=== PATIENT | female | born 1940 | race Caucasian/White ===

== ENCOUNTER 2017-10-09 13:56 | Emergency (ER) | payer MEDICARE, SELFPAY ==
[2017-10-09 13:57] VITALS: BP 153/88; PULSE 59; RESP 18; TEMP 36.6; O2SAT 96; BMI 23.3
--- NOTE | 2017-10-09 14:02 | RAD_ITS ---
STUDY: X-RAY - LEFT WRIST REASON FOR EXAM: Female, 77 years old. Pain following a fall. History of old fracture of the distal radius. TECHNIQUE: 3 view(s) of the wrist were obtained. COMPARISON: None. FINDINGS: Normal visualized distal radius and ulna. Normal radiocarpal articulation. Normal distal radioulnar articulation. Normal carpal bones. Normal carpal articulations. Normal carpometacarpal articulation of the thumb. Normal second through fifth carpometacarpal articulations. Normal visualized metacarpal bones. Calcification of the triangular fibrocartilage. RAD/Wrist min 3 Views IMPRESSION: No acute abnormality is seen. Electronically Signed: Steve Ramos MD at 14:28 EST Tel [phone], Service support ,
--- NOTE | 2017-10-09 14:51 | ED.VISSUMM ---
- ER Visit Summary Date of Service: 10/09/17 Chief Complaint: Pain and swelling left wrist status post fall this past Monday History of Present Illness: The patient is a 77 F is right-handed. She presents with injury to her left wrist. She fell outstretched extremity while walking the dog on Monday. She reports pain with movement and palpation. She has no history of prior injury. He denies paresthesia, anesthesia or motor weakness. Physical Examination: Vital signs remarkable elevated blood pressure 153/88. Median, radial and ulnar function intact. There is no subungual hematomas noted of the digits. Extensor and flexor is intact. Capillary refill is normal in all digits. There is pain palpation over the distal radius with soft tissue swelling noted. There is no pain the patient over the anatomic snuffbox or axial loading of the thumb. Test Results: View x-ray of the wrist was obtained which reveals arthritic changes with no obvious fracture. Furthermore, there is no volar fat pad noted. There is no widening of the scapholunate space either. Emergency Department Course and Treatment: X-ray was obtained per nurse protocol Treatment Plan: Elevation and ice. Disposition: Discharged home Impression: Contusion left wrist with hematoma status post fall initial encounter This note was generated with [employer] dictation software. It may contain incorrect words, spelling, and punctuation that were not noted in review of the chart prior to signing ED Disposition - Plan for ED Patient: Disposition: Home or Assisted Living Chief Complaint: Upper Extremity Injury Instructions: ED Contusion Upper Ext Referrals: Denton,Nafisa, DO [Primary Care Provider] - 3-5 Days if not improving Additional Instructions: Elevate wrist and ice 20-30 minutes at a time 6 day times a day.
--- NOTE | 2017-10-09 14:56 | ED.VISSUMM ---
- ER Visit Summary Date of Service: 10/09/17 Chief Complaint: [] History of Present Illness: The patient is a 77 F [] Physical Examination: [] Test Results: [] Emergency Department Course and Treatment: [] Treatment Plan: [] Disposition: [] Impression: [] This note was generated with [employer] dictation software. It may contain incorrect words, spelling, and punctuation that were not noted in review of the chart prior to signing ED Disposition - Plan for ED Patient: Disposition: Home or Assisted Living Chief Complaint: Upper Extremity Injury Instructions: ED Contusion Upper Ext Prescriptions: Hydrocodone Bitart/Apap 5-325 [[place] 5MG-325MG] 1 tablet PO Q6H PRN PRN 3 Days #10 tablet PRN Reason: Pain Referrals: Fast,Nafisa, DO [Primary Care Provider] - 3-5 Days if not improving Additional Instructions: Elevate wrist and ice 20-30 minutes at a time 6 day times a day.
--- NOTE | 2017-10-09 15:00 | ED.DCSUM_ITS ---
- ER Visit Summary Date of Service: 10/09/17 Chief Complaint: [] History of Present Illness: The patient is a 77 F [] Physical Examination: [] Test Results: [] Emergency Department Course and Treatment: [] Treatment Plan: [] Disposition: [] Impression: [] This note was generated with [employer] dictation software. It may contain incorrect words, spelling, and punctuation that were not noted in review of the chart prior to signing ED Disposition - Plan for ED Patient: Disposition: Home or Assisted Living Chief Complaint: Upper Extremity Injury Instructions: ED Contusion Upper Ext Prescriptions: Hydrocodone Bitart/Apap 5-325 [[place] 5MG-325MG] 1 tablet PO Q6H PRN PRN 3 Days # 10 tablet PRN Reason: Pain Referrals: Fast,Nafisa, DO [Primary Care Provider] - 3-5 Days if not improving Additional Instructions: Elevate wrist and ice 20-30 minutes at a time 6 day times a day.
--- NOTE | 2017-10-09 17:45 | ED.DCSUM_ITS ---
- ER Visit Summary Date of Service: 10/09/17 Addendum: The patient went to [facility] to get her prescription for [place] which had been sent electronically. They told her that they did not have a record of this. The patient had a paper prescription given so that she could get this filled. This note was generated with [employer] dictation software. It may contain incorrect words, spelling, and punctuation that were not noted in review of the chart prior to signing ED Disposition - Plan for ED Patient: Disposition: Home or Assisted Living Chief Complaint: Upper Extremity Injury Prescriptions: Hydrocodone Bitart/Apap 5-325 [[place] 5/325] 1 - 2 tab PO Q4H PRN PRN 3 Days #10 tab PRN Reason: Pain Hydrocodone Bitart/Apap 5-325 [[place] 5MG-325MG] 1 tablet PO Q6H PRN PRN 3 Days # 10 tablet PRN Reason: Pain Referrals: Fast,Nafisa, DO [Primary Care Provider] - 3-5 Days if not improving Additional Instructions: Elevate wrist and ice 20-30 minutes at a time 6 day times a day.
== END 2017-10-09 15:12 | disposition home or self-care (01) ==
PROVIDERS: Emergency Provider Emergency Medicine; Family Provider Internal Medicine; PCP Internal Medicine
DX: S60.212A Contusion of left wrist, initial encounter (principal); M19.032 Primary osteoarthritis, left wrist; I48.91 Unspecified atrial fibrillation; Z72.0 Tobacco use; Z86.73 Personal history of transient ischemic attack (TIA), and cerebral infarction without residual deficits; W19.XXXA Unspecified fall, initial encounter; Y93.K1 Activity, walking an animal; Y92.89 Other specified places as the place of occurrence of the external cause; Y99.8 Other external cause status
CPT/HCPCS: 73110; 99282

== ENCOUNTER 2017-10-10 13:23 | Emergency (ER) | payer MEDICARE, SELFPAY ==
[2017-10-09 13:57] VITALS: BP 153/88; BMI 23.3
[2017-10-10 13:24] VITALS: BP 163/75; PULSE 60; RESP 17; TEMP 36.9; O2SAT 95; BMI 23.8
--- NOTE | 2017-10-10 14:14 | ED.VISSUMM ---
- ER Visit Summary Date of Service: 10/10/17 Chief Complaint: left wrist pain is worse and must have missed something yesterday History of Present Illness: The patient is a 77 F who was seen by me yesterday. She had x-rays of the wrist that were interpreted by me as negative. Prior to seeing patient the x-rays were read examined and the radiologist interpretation is negative as well. She complains of increased pain. She states she has been elevating her wrist and applying ice. She states the [place] she was prescribed is not helping at all. She denies any paresthesia, anesthesia or motor weakness. She is concerned because the swelling has gotten worse. Physical Examination: Has significant swelling dorsal surface of the left breast and distal one third of the left forearm on the dorsal surface. Axillary, median, radial and ulnar function intact. There is no pain the patient of the lateral medial epicondyle. No pain the patient with olecranon process. There is no pain the patient with a radial head. Minimal movement of her fingers or hand causes her exquisite pain. Test Results: None Emergency Department Course and Treatment: As informed I did look at the x-rays again and looked at the interventional radiologist. He agreed with my initial interpretation. Of note patient has an Abhi wrap on and the Abhi wrap was applied tightly. She was informed the reason that her swelling has gotten worse is the fact that she is on Xarelto and she is more likely to bleed. She was instructed to keep her wrist elevated. She was told elevation means her wrist above her nose and applying ice 6-8 times a day. She insists that she has been compliant. Of note her fingers are all swollen and they were not swollen yesterday. Treatment Plan: Keep wrist elevated, ice and follow-up with PCP if no improvement in 3-5 days Disposition: Discharged to home Impression: Left wrist pain status post fall with expanding subcu hematoma secondary to Xarelto This note was generated with [employer] dictation software. It may contain incorrect words, spelling, and punctuation that were not noted in review of the chart prior to signing ED Disposition - Plan for ED Patient: Disposition: Home or Assisted Living Chief Complaint: Upper Extremity Injury Instructions: ED Hematoma, ED Contusion Upper Ext Referrals: Fast,Nafisa, DO [Primary Care Provider] - 3-5 Days if not improving
--- NOTE | 2017-10-10 14:19 | ED.DCSUM_ITS ---
- ER Visit Summary Date of Service: 10/10/17 Chief Complaint: left wrist pain is worse and must have missed something yesterday History of Present Illness: The patient is a 77 F who was seen by me yesterday. She had x-rays of the wrist that were interpreted by me as negative. Prior to seeing patient the x-rays were read examined and the radiologist interpretation is negative as well. She complains of increased pain. She states she has been elevating her wrist and applying ice. She states the [place] she was prescribed is not helping at all. She denies any paresthesia, anesthesia or motor weakness. She is concerned because the swelling has gotten worse. Physical Examination: Has significant swelling dorsal surface of the left breast and distal one third of the left forearm on the dorsal surface. Axillary , median, radial and ulnar function intact. There is no pain the patient of the lateral medial epicondyle. No pain the patient with olecranon process. There is no pain the patient with a radial head. Minimal movement of her fingers or hand causes her exquisite pain. Test Results: None Emergency Department Course and Treatment: As informed I did look at the x-rays again and looked at the interventional radiologist. He agreed with my initial interpretation. Of note patient has an Abhi wrap on and the Abhi wrap was applied tightly. She was informed the reason that her swelling has gotten worse is the fact that she is on Xarelto and she is more likely to bleed. She was instructed to keep her wrist elevated. She was told elevation means her wrist above her nose and applying ice 6-8 times a day. She insists that she has been compliant. Of note her fingers are all swollen and they were not swollen yesterday. Treatment Plan: Keep wrist elevated, ice and follow-up with PCP if no improvement in 3-5 days Disposition: Discharged to home Impression: Left wrist pain status post fall with expanding subcu hematoma secondary to Xarelto This note was generated with [employer] dictation software. It may contain incorrect words, spelling, and punctuation that were not noted in review of the chart prior to signing ED Disposition - Plan for ED Patient: Disposition: Home or Assisted Living Chief Complaint: Upper Extremity Injury Instructions: ED Hematoma, ED Contusion Upper Ext Referrals: Fast,Nafisa, DO [Primary Care Provider] - 3-5 Days if not improving
[2017-10-10 14:36] VITALS: RESP 16
--- NOTE | 2017-10-10 14:37 | ED.RN ---
REVIEWED D/C INSTRUCTIONS, FOLLOW UP CARE, AND S/S THAT WOULD WARRANT A RETURN TO THE ED WITH PT. PT VERBALIZED AN UNDERSTANDING AND DENIES FURTHER QUESTIONS FOR THIS RN. PT SKIN P/W/D, RESP EVEN AND UNLABORED, PT A&O X 3, NO DISTRESS NOTED. PT AMBULATED OUT OF ED, GAIT STEADY.
== END 2017-10-10 14:38 | disposition home or self-care (01) ==
LOC: ED 14:22
PROVIDERS: Emergency Provider Emergency Medicine; Family Provider Internal Medicine; PCP Internal Medicine
DX: M25.532 Pain in left wrist (principal); S60.212D Contusion of left wrist, subsequent encounter; Z79.02 Long term (current) use of antithrombotics/antiplatelets; I25.10 Atherosclerotic heart disease of native coronary artery without angina pectoris; E11.9 Type 2 diabetes mellitus without complications; I10 Essential (primary) hypertension; E78.00 Pure hypercholesterolemia, unspecified; I48.91 Unspecified atrial fibrillation; I27.20 Pulmonary hypertension, unspecified; Z72.0 Tobacco use; Z79.84 Long term (current) use of oral hypoglycemic drugs; Z79.891 Long term (current) use of opiate analgesic; Z79.899 Other long term (current) drug therapy; W19.XXXD Unspecified fall, subsequent encounter
CPT/HCPCS: 99282

== ENCOUNTER 2017-10-14 12:36 | Emergency (ER) | payer MEDICARE, SELFPAY ==
[2017-10-14 12:36] VITALS: BP 148/86; PULSE 68; RESP 14; TEMP 36.9; BMI 24.3
--- NOTE | 2017-10-14 12:45 | RAD_ITS ---
STUDY: X-RAY - LEFT RADIUS AND ULNA REASON FOR EXAM: Female, 77 years old. Trauma TECHNIQUE: 2 view(s) of the forearm. COMPARISON: None. FINDINGS: There is no evidence of fracture or dislocation. There are no significant degenerative changes. There are no radiodense foreign bodies. RAD/Forearm 2 Views IMPRESSION: No fracture or dislocation. Electronically Signed: Félix Wills, at 14:24 EST Tel , Service support ,
--- NOTE | 2017-10-14 13:40 | ED.DCSUM_ITS ---
- ER Visit Summary Date of Service: 10/14/17 Chief Complaint: The left forearm status post fall History of Present Illness: The patient is a 77 F who is right-hand dominant and was seen last week ?2 for injury to left wrist. X-rays at that time were negative. She now presents because of left forearm pain. Pain is localized to the mid third of the radius. She denies any shoulder pain. She denies elbow pain. She reports pain with movement mid forearm. She denies any paresthesia, anesthesia or motor weakness. Physical Examination: Woman who appears uncomfortable. Vital signs remarkable blood pressure 148/86. There is pain palpation of the mid third of the left radius. There is no pain the patient over the olecranon process, lateral medial epicondyle or radial head. There is soft tissue swelling with discoloration and pain to palpation over the dorsal surface of the distal radius and ulna. There is no pain on the volar surface. Median, radial, and ulnar nerve function are intact. Radial pulses palpable. Test Results: View x-ray of the left forearm was obtained and there is no evidence of fracture. Emergency Department Course and Treatment: Ice elevation Tylenol for discomfort and x-ray to evaluate for fracture Treatment Plan: Ice elevation ice for discomfort Disposition: Discharge to home Impression: Contusion left forearm status post fall initial encounter This note was generated with [employer] dictation software. It may contain incorrect words, spelling, and punctuation that were not noted in review of the chart prior to signing ED Disposition - Plan for ED Patient: Disposition: Home or Assisted Living Chief Complaint: Upper Extremity Injury Instructions: ED Contusion Upper Ext Referrals: Nafisa Chawla DO [Primary Care Provider] - 1 Week if not improving
[2017-10-14 13:51] VITALS: RESP 12
== END 2017-10-14 13:51 | disposition home or self-care (01) ==
PROVIDERS: Emergency Provider Emergency Medicine; Family Provider Internal Medicine; PCP Internal Medicine
DX: S50.12XD Contusion of left forearm, subsequent encounter (principal); S80.212D Abrasion, left knee, subsequent encounter; Z79.84 Long term (current) use of oral hypoglycemic drugs; Z79.02 Long term (current) use of antithrombotics/antiplatelets; Z79.891 Long term (current) use of opiate analgesic; Z79.899 Other long term (current) drug therapy; W19.XXXD Unspecified fall, subsequent encounter
CPT/HCPCS: 73090; 99282

== ENCOUNTER 2018-01-16 11:30 | Outpatient (RCR) | payer MEDICARE, SELFPAY ==
--- NOTE | 2017-11-21 15:51 | HP.OTEVAL_ITS ---
Patient's Visit Information LEOPOLDO PONCE is a 77 year old F, referred to Occupational Therapy by Robert Johnston DO,, with a diagnosis of left intraarticular fracture of left lower end left radius. Date of Evaluation: 11/20/17 Occupational Therapist: ALEXANDRIA Lepe/Melchor, CHT - Subjective Subjective: Pt states she was walking her dog and she had a fall. Pt went to the ER that day and was told no fx. pt went to ER the next day- and told again no fx- she states did see Dr. Pierce and he placed her in a splint and said she had a fx.pt states she is limited with all BADLS and IADLS at this time due to her limited left wrist ROM and pain. pt want to return to PLOF - Pain left wrist 8 Pain Intensity Range: 5, 9 - Objective Objective/Observation: pt arrives with othosis on left wrist - ROM Wrist: right RD/UD 15/[address]/UD 10/15 right 50/50 left 30/0 ROM Comments: left thumb pain with ext. - Strength Electrolytic De Scaler: right 45# left NT Lateral Pinch: right 4# left NT Tripod Pinch: right 8# left NT - Edema Wrist: right 16cm left 17.5 cm - Sensation Sensation Comments: denies - Hand/Wrist Evaluation Total Score of Pain & Functional Sections: 82 - Goals Goal:: pt will demo a increase in left chief orthoptist strength by 30# to increase her ind. with meal prep and BADLS. pt will demo a increase in left pinch streanght by 4# to increase pts ability to button and open jars/ bottles by d/c Goal:: pt will demo a increase in TROM of left wrist by 15 degrees to return pt to PLOF with BADLS and IADLS by d/c Goal:: pt will report pain 2/10 or less when performing BADLS and IADLS Goal:: pt will demo increase in FMS by manipulating fasteners at ind. level by d /c - Rehabilitation General Assessment: pt demo with a decrease in left wrist ROM and functoinal strength- pt reports pain 8/10 at rest without movement - the limitations are increasing the need of assist with BADLS and IADLS at this time. pt would benefit from skilled OT services 2-3x week for 6 weeks to return pt to a functional ability to peform BADLS Rehabilitation Potential: Good - Anticipated Interventions Anticipated Interventions: A/AAROM/PROM, Strengthening, Triggerpoint Release, Modalities, Orthoses, Ergonomic Education - Visit Plan Frequency: 2-3x /Week Duration: 2 Months TEXT: Thank you for the opportunity to evaluate your patient. For Medicare and Medicare HMO plans, please review the plan of care and approve it. It will need to be FAXED BACK to us at [phone] for Medicare purposes. Please let me know if there are questions or concerns regarding this plan of care. Physician Signature: Date:
--- NOTE | 2017-11-22 09:29 | HP.PTEVAL_ITS ---
Patient's Visit Information LEOPOLDO PONCE is a 77 year old F referred to Physical Therapy by DO AMA Mckeon with a diagnosis of Abnormal balance. Date of Evaluation: 11/22/17 Physical Therapist: Kvng Jerez DPT, OC - Visit Plan Frequency: 3x /Week Duration: 4 Weeks Plan: Neurocom balance assessment per order then 3x/week for 4 weeks for : VOR exercises with walking. Vestibualr balance challenges and ex. Teach I LE strength program for I when done on machines for Silver Sneakers. - Subjective Subjective: In OT for L wrist fracture. Fell running into sidewalk raised up and snow covered and fell forward. Went to ER and this was nearly two months ago. Sent home and hand was swollen next day and they looked at x ray again and sent her home. Went to family doctor and diagnosed with broken wrist. Fella gain shortly later. Since then has brace on and or cast for last 4 weeks. Now back in brace for at least 4 weeks. Feels like balance is off all the time and has been for a while. Has fallen many times this year. Will not use walker or cane. Wants to get balance better. Live with niece who is an RN. Steps to basement if goes down there and has a rail. No falls on steps. So spinning. Numbness in L LE possibly from back as she had surgery 10 years ago. Gets up from chair and may topple over. Spends day doing nothing and shopping. Got dog and walks him, gets pulled by dog falling at least once. - Objective Walks I on firm flat surface, steps reciprocal but needs rail for safety. Transfers I to and for sit and supine. UE AAROM WFL, LE AROM WFL. reflexes patella L 1/3 adn R 2/3, achilles 2/3. Sensation diminished in L lateral LE slightly to light touch vs R. Strength is 4-/5 in LE without myotomal abnormalities. coordination to reciprocal tap and heel to hogan appears normal. VOR walking is challenging balance and eyes on target. - Balance Scores Functional Gait Assessment Score: 20 % Disability: 33.3400 CATSIB Score (Max score 120 seconds): 92 - Goals Goal 1:: FGA to diminish fall risk. Goal Time Frame: 4-6 Weeks Goal 2:: VOR ambulation without unsteadiness. Goal Time Frame: 4-6 Weeks Goal 3:: I approp HEP to minimize fall risk. - Rehabilitation Potential Physical Therapy Diagnosis: Abnormal balance Rehabilitation Potential: Good - Anticipated Interventions Patient/Client Instruction: Educate patient on: Condition, Plan of Care For the Purpose of:: To improve gait and locomotor functions, To improve safety Therapeutic Exercise to Include: Strength training, Balance training Comment: VOR For the Purpose of:: To improve muscle performance and motor function, To improve gait and locomotor functions, To improve safety with gait, To improve safety Thank you for the opportunity to evaluate your patient. For Medicare and Medicare HMO plans, please review the plan of care and approve it. It will need to be FAXED BACK to us at [phone] for Medicare purposes. Please let me know if there are questions or concerns regarding this plan of care. Physician Signature: Date:
--- NOTE | 2018-01-02 14:56 | OTREVAL_ITS ---
Robert Johnston, DO, It has been my pleasure to treat LEOPOLDO PONCE over the last 7 visits for left intraarticular fracture of left lower end left radius. Please see the progress note below for an update on the occupational therapy plan of care! Subjective: pt states she is doing well- states she is still having difficutly with opening jars and having enough strength to perform her BADSL and IADLs Objective/Function: pt demo a left vending machine servicer of 30#. ROM is WFL. left lat.pinch 4# . left tripod pinch 3#. pt has made gains with her left wrist ROM - but continues to be limited due to her strength- pt would benefit from further PRE to increase her functional strength for BADLS - recd 2x week for 3 weeks Plan Frequency: 2x /Week Duration: 3 Weeks Plan: add bilateral arm lifts- to increase left UB strength. Goals - Goals Goal:: pt will demo a increase in left vending machine servicer strength by 30# to increase her ind. with meal prep and BADLS. pt will demo a increase in left pinch streanght by 4# to increase pts ability to button and open jars/ bottles by d/c Goal:: pt will demo a increase in TROM of left wrist by 15 degrees to return pt to PLOF with BADLS and IADLS by d/c Goal:: pt will report pain 2/10 or less when performing BADLS and IADLS Goal:: pt will demo increase in FMS by manipulating fasteners at ind. level by d /c Anticipated Interventions Anticipated Interventions: A/AAROM/PROM, Strengthening, Triggerpoint Release, Modalities, Orthoses, Ergonomic Education Please do not hesitate to contact me at [phone] by phone or Fax: if you have questions or concerns regarding this new plan of care! Sincerely, Monica Barry, OTR/L, CHT
--- NOTE | 2018-01-16 12:08 | HP.PTREVAL_ITS ---
Robert Johnston, DO, It has been my pleasure to treat LEOPOLDO PONCE over the last 8 visits for Abnormal balance. Please see the progress note below for an update on the physical therapy plan of care! Subjective: Better with workout. Feels better after she leaves PT. Bending and picking up objects still feels unsteady. Steps cause SOB, Tires easily. Has steps at home. Objective/Function: FGA+7 and improving despite inconsistency with balance ex. Consistency has been a problem with strength but she should be able to do these on her own. Bending and recovering and walking with VOR were both challenging balance honeycutt today. OVERALL MUCH BETTER. STILL NOT READY FOR I WITH BALANCE EX BUT WILL DO STRENGTH ON HER OWN AND SEEK MORE THERAPY TO PROGRESS AND BECOME I WITH BALANCE. Plan Plan: 4 visits 2x/week to work to I with balance ex of slant board stance and weight shifts, foam stance with challenges,and add VOR balance and bend and recover ex as safety allows. Give pics when safe and violeta dd to current HEP Goals Goal 1:: FGA to diminish fall risk. Goal Time Frame: 4-6 Weeks Goal Progress: Goal Met Goal 2:: VOR ambulation without unsteadiness. Goal Time Frame: 4-6 Weeks Goal Progress: Progressing Goal 3:: I approp HEP to minimize fall risk. Goal Time Frame: 2-4 Weeks Goal Progress: strength but no balance. Anticipated Interventions Patient/Client Instruction: Educate patient on: Condition, Plan of Care For the Purpose of:: To improve gait and locomotor functions, To improve safety Therapeutic Exercise to Include: Strength training, Balance training Comment: VOR For the Purpose of:: To improve muscle performance and motor function, To improve gait and locomotor functions, To improve safety with gait, To improve safety Please do not hesitate to contact me at [phone] by phone or Fax: if you have questions or concerns regarding this new plan of care! Sincerely, Kvng Jerez, [place], OC
--- NOTE | 2018-01-25 08:32 | HP.OT.NRP ---
HP - Discharge Summary - Patient Information LEOPOLDO PONCE was seen in my office for initial evaluation on 11/20/17. The following Plan of Care was established for this patient: Initial Frequency: 2x /Week Initial Duration: 3 Weeks Plan: add bilateral arm lifts- to increase left UB strength. - Anticipated Interventions Anticipated Interventions: A/AAROM/PROM, Strengthening, Triggerpoint Release, Modalities, Orthoses, Ergonomic Education This patient was last seen in our office 01/02/18. Pertinent comments regarding their Occupational therapy will appear below: pt was seen for 7 OT visits- she was making good gains in her therapy with ROM and strength- pt was to progress to a strengthening HEP- pt did not retun for further tx. pt d/c at this time due to time laps in her scheduled apts. At this point I will be discontinuing this patient from occupational therapy. I would be happy to see this patient again in the future if found appropriate by the physician. Thank you! Monica Barry, OTR/L, CHT
--- NOTE | 2018-04-12 12:08 | HP.PT.NRP ---
HP - Discharge Summary (1) - Patient Information LEOPOLDO PONCE was seen in my office for initial evaluation on 11/22/17. The following Plan of Care was established for this patient: Initial Frequency: 3x /Week Initial Duration: 4 Weeks - Anticipated Interventions Patient/Client Instruction: Educate patient on: Condition, Plan of Care For the Purpose of:: To improve gait and locomotor functions, To improve safety Therapeutic Exercise to Include: Strength training, Balance training For the Purpose of:: To improve muscle performance and motor function, To improve gait and locomotor functions, To improve safety with gait, To improve safety This patient was last seen in our office 01/16/18. Pertinent comments regarding their Physical therapy will appear below: Pt seen for 8 visits through 01/16. She was rechecked on that date and found appropriate to cotninue with new POC. She neglected to schedule these visits and will be discontinued as it has been nearly two months. At this point I will be discontinuing this patient from physical therapy. I would be happy to see this patient again in the future if found appropriate by the physician. Thank you! Kvng Jerez, DPT, OC
== END 2018-01-16 19:00 | disposition home or self-care (01) ==
LOC: PT 11:30
PROVIDERS: Family Provider Internal Medicine; PCP Internal Medicine; Visit Provider Orthopaedic Surgery
DX: S52.572D Other intraarticular fracture of lower end of left radius, subsequent encounter for closed fracture with routine healing (principal); R26.89 Other abnormalities of gait and mobility; M19.032 Primary osteoarthritis, left wrist
CPT/HCPCS: 97110; 97140; 97162; 97166; 97168; 97530; 97750; G8987; G8988

== ENCOUNTER → 2018-05-16 06:30 | Outpatient (CLI) | payer MEDICARE, SELFPAY ==
--- NOTE | 2018-05-16 06:34 | CDU_ITS ---
Reason For Study: BILAT CAROTID ARTERY STENOSIS Rt. Velocities/BP Lt. Velocities/BP Prox CCA 73/19 cm/sec. Prox CCA 55/13 cm/sec. Mid CCA 60/19 cm/sec. Mid CCA 73/22 cm/sec. Dist CCA 51/19 cm/sec. Dist CCA 58/18 cm/sec. Prox ICA 38/14 cm/sec. Prox ICA 35/13 cm/sec. Mid ICA 76/25 cm/sec. Mid ICA 92/29 cm/sec. Dist ICA 97/32 cm/sec. Dist ICA 55/14 cm/sec. Rt. ICA/CCA = 1.6. Lt. ICA/CCA = 1.25. Prox ECA 53/14 cm/sec. Prox ECA 66/14 cm/sec. Rt. Vert. 32/11 cm/sec. Lt. Vert. 35/6 cm/sec. Right Extracranial There is intimal thickening but no significant atherosclerotic plaque noted in the right common carotid artery. There is homogeneous, smooth atherosclerotic plaque noted in the right internal carotid artery. The tortuous nature of the right internal carotid artery may result in flow velocities overestimating the degree of stenosis. There is homogeneous, smooth atherosclerotic plaque noted in the right external carotid artery. Antegrade flow is noted in the right vertebral artery. Left Extracranial There is intimal thickening but no significant atherosclerotic plaque noted in the left common carotid artery. There is homogeneous, smooth atherosclerotic plaque noted in the left internal carotid artery. The tortuous nature of the left internal carotid artery may result in flow velocities overestimating the degree of stenosis. There is homogeneous, smooth atherosclerotic plaque noted in the left external carotid artery. Antegrade flow is noted in the left vertebral artery. Procedure Carotid Duplex [id number]. Exam performed in department. Interpretation Summary Mild (<50%) stenosis right extracranial internal carotid. Mild (<50%) stenosis left extracranial internal carotid. Flow within the vertebral arteries is antegrade bilaterally. Ordering Physician: Nafisa Chawla Referring Physician: Nafisa Chawal Performed By: Sybil Burris, CLAY, RVT
--- NOTE | 2018-05-16 08:54 | US_ITS ---
STUDY: THYROID ULTRASOUND REASON FOR EXAM: Female, 78 years old. Nodules. TECHNIQUE: Ultrasound evaluation of the thyroid was performed with real-time and static yen-scale imaging. COMPARISON: 06/26/2015, 03/18/2016. FINDINGS: RIGHT LOBE: The right lobe of the thyroid gland measures 4.5 x 1.3 x 1.5 cm. There is a homogeneous echotexture. There are no demonstrated solid, cystic or complex lesions. LEFT LOBE: The left lobe of the thyroid gland measures 4.8 x 1.2 x 1.7 cm. There is a homogeneous echotexture. Several tiny nodules are seen, primarily cystic although one is solid. Measurements are 2 mm, 3 mm, and 5 mm. ISTHMUS: The isthmus measures 2 mm . The regional lymph nodes are normal. US/Thyroid IMPRESSION: Several tiny nodules on the left. Typically, subcentimeter nodules such as these do not need follow-up or further management. Electronically Signed: Ivan Thorne MD at 16:55 EDT , Service support ,
--- NOTE | 2018-05-16 11:07 | STRESSREP_ITS ---
Stress Test Report Pharmacologic myocardial perfusion stress test. 78-year-old lady with a history of chest pain. Stress protocol: Resting EKG demonstrates normal sinus rhythm with a rate of 60 bpm and mildly downsloping ST depression noted in lead III. Normal intervals and noted resting blood pressure is 164/98 mmHg. 0.4 mg regadenoson was infused per usual protocol followed by rapid intravenous saline flush injection continuous EKG monitoring was performed. The maximum heart rate attained was 69 bpm was 48 % maximum predicted heart rate maximum workload was 1 metabolic equivalent. Resting blood pressure is 164/98 final blood pressure is 146/82. Myocardial perfusion protocol. 11.9 mCi of technetium 99m sestamibi was injected at rest. 0.4 mg of regadenoson was infused. At peak infusion 33.8 mCi of technetium 99m sestamibi was injected. Stress images were obtained stress and rest images were reconstructed and compared in the short axis vertical and horizontal long axis. Gated images were also obtained Perfusion SPECT analysis. Review of the images demonstrate normal uptake of tracer noted in all areas of myocardium on the stress and rest images with no evidence of ischemia. The resting images similarly demonstrate normal perfusion pattern in all areas with no evidence of reversibility to suggest ischemia. A tiny apical defect is noted which most likely represents apical striping. No obvious ischemia or infarct is present. Gated SPECT analysis: The gated ejection fraction is noted to be 62%. Conclusion: Normal pharmacologic myocardial perfusion stress test. Preserved ejection fraction.
== END ==
PROVIDERS: Family Provider Internal Medicine; PCP Internal Medicine; Visit Provider Internal Medicine
DX: I65.23 Occlusion and stenosis of bilateral carotid arteries (principal); E04.1 Nontoxic single thyroid nodule; R07.89 Other chest pain
CPT/HCPCS: 76536; 78452; 93017; 93880; A9500; A4216; J2785

== ENCOUNTER → 2018-07-17 12:25 | Outpatient (CLI) | payer MEDICARE, SELFPAY ==
--- NOTE | 2018-07-17 12:28 | RAD_ITS ---
STUDY: X-RAY CHEST REASON FOR EXAM: Female, 78 years old. 3 day history of shortness of breath. TECHNIQUE: PA and lateral views of the chest. COMPARISON: Comparison is made with prior study dated September 05, 2017. FINDINGS: Stable 9 mm nodule in the left suprahilar region suggestive of a calcified granuloma. There is blunting of the left cosmetic angle with mild increased markings at the left lung base. This may represent left basilar atelectasis. There is mild cardiac enlargement. A left-sided dual-chamber pacemaker is seen. Normal mediastinum and rocael. Normal visualized pulmonary arteries. There is atherosclerotic tortuosity of the aortic arch and descending thoracic aorta. There is demineralization of the osseous structures. Normal visualized ribs, clavicles, and shoulders. There is no demonstrated abnormality of the visualized soft tissue structures of the upper abdomen. RAD/Chest PA and Lateral IMPRESSION: Blunting of the left costophrenic angle with mild increased markings at the left lung base suggestive of atelectasis. Follow-up is recommended. Electronically Signed: Steve Ramos MD at 12:48 EST Tel [phone], Service support ,
== END ==
PROVIDERS: Family Provider Internal Medicine; PCP Internal Medicine; Referring Provider Internal Medicine; Visit Provider Internal Medicine
DX: R06.02 Shortness of breath (principal)
CPT/HCPCS: 71046

== ENCOUNTER → 2018-07-25 15:56 | Outpatient (CLI) | payer MEDICARE, SELFPAY ==
[2018-07-25 15:56] VITALS: BMI 23.8
[2018-07-25 16:24] LABS: BNP,B-Type NATRIURETIC PEPTIDE 335.7 pg/mL (0-100)
== END ==
PROVIDERS: Family Provider Internal Medicine; PCP Internal Medicine; Referring Provider Internal Medicine; Visit Provider Internal Medicine
DX: R93.89 Abnormal findings on diagnostic imaging of other specified body structures (principal)
CPT/HCPCS: 83880

== ENCOUNTER → 2018-08-08 08:26 | Outpatient (CLI) | payer MEDICARE, SELFPAY ==
[2018-07-25 15:56] VITALS: BMI 23.8
--- NOTE | 2018-08-08 08:34 | BD_ITS ---
STUDY: DUAL ENERGY X-RAY ABSORPTIOMETRY / DXA REASON FOR EXAM: Female, 78 years old. The patient is postmenopausal. Loss of height. TECHNIQUE: Bone Mineral Density (BMD) measurements of lumbar spine and bilateral hips were obtained. COMPARISON: Comparison is made with prior examination dated April 28, 2016. FINDINGS: Lumbar Spine (L1-L4): g/cm2 (1.181) / T-score (0.1) / Z-score (1.9) Findings are suggestive of normal bone density with a low fracture risk. Left Femur Total: g/cm2 (0.849) / T-score (-1.3) / Z-score (0.6) Left Femoral Neck: g/cm2 (0.770) / T-score (-1.9) / Z-score (0.1) Right Femur Total: g/cm2 (0.947) / T-score (-0.5) / Z-score (1.4) Right Femoral Neck: g/cm2 (0.819) / T-score (-1.6) / Z-score (0.5) The T-Scores on the most recent prior examination were: Lumbar Spine (L1-L4): There has been worsening of bone density since the previous examination. Left Femur Total: which represents a worsening of 4.2%. Right Femur Total: which represents a worsening of 3.1%. BD/Dexa Bone Density Study IMPRESSION: The patient is considered osteopenic as outlined below according to World Dannie Organization (WHO) criteria with a moderate fracture risk. There has been worsening of bone density since the previous examination. Reference Information: The T-score is the number of standard deviations above or below the standard which is normal for young adults at their peak bone mineral density. The World Health Organization (WHO) interprets the T-scores as follows: Above -1 Normal bone density Between -1 and -2.5 Osteopenia Equal to / or below -2.5 Osteoporosis As a practical clinical guideline, osteopenia may be graded as follows: Mild -1 through -1.5 Moderate -1.6 through -2.0 Severe -2.1 through -2.4 The Z-score is the number of standard deviations above or below age-matched controls. A Z-score of less than -1.5 would be considered abnormal. References: 1. NIH Osteoporosis and Related Bone Diseases http://www.osteo.org 2. International Society for Clinical Densitometry http://www.iscd.org 3. National Osteoporosis Foundation http://www.nof.org Electronically Signed: Steve Ramos MD at 15:48 EST Tel [phone], Service support ,
== END ==
PROVIDERS: Family Provider Internal Medicine; PCP Internal Medicine; Visit Provider Internal Medicine
DX: Z78.0 Asymptomatic menopausal state (principal)
CPT/HCPCS: 77080

== ENCOUNTER → 2018-08-09 08:00 | Outpatient (CLI) | payer MEDICARE, SELFPAY ==
[2018-07-25 15:56] VITALS: BMI 23.8
--- NOTE | 2018-08-09 08:03 | ECHOD_ITS ---
Reason For Study: SOB Procedure This was a 2D Doppler, Color Flow transthoracic echocardiogram. Technically difficult study, unable to utilize Definity due to increased pressures. Exam performed in department. Left Ventricle Normal LV size. Left ventricular systolic function is normal. The estimated ejection fraction is 55 %. Diastolic function is indeterminate. No regional wall motion abnormalities noted. Right Ventricle Normal RV size. ICD or pacer leads identified within the right ventricle. Normal systolic function. Atria The left atrium is moderately enlarged. Normal right atrium. ICD or pacer leads identified within the right atrium. Mitral Valve Normal mitral valve. Mild (1+) eccentric mitral valve insufficiency. Tricuspid Valve Normal tricuspid valve. Moderate (2+) tricuspid valve insufficiency. Pulmonary artery systolic pressure is 60 mmHg. Aortic Valve Normal aortic valve. Pulmonic Valve Normal pulmonic valve. Great Vessels Normal aortic root. The pulmonary artery is normal size. Normal inferior vena cava. Pericardium/Pleural No pericardial effusion. MMode/2D Measurements & Calculations LVIDd: 4.2 cm IVSd: 1.4 cm Ao root diam: 3.3 cm LVIDs: 3.1 cm LVPWd: 1.0 cm LA dimension: 4.6 cm FS: 25.0 % LAV(MOD-sp4): 100.0 ml LVAd ap4: 24.2 cm2 SV(MOD-sp4): 35.8 ml EDV(MOD-sp4): 70.9 ml EDV(sp4-el): 71.5 ml LVAs ap4: 16.1 cm2 ESV(MOD-sp4): 35.1 ml ESV(sp4-el): 35.4 ml EF(MOD-sp4): 50.5 % EF(sp4-el): 50.4 % SV(sp4-el): 36.1 ml LA A4 area: 28.0 cm2 RA A4 area: 17.8 cm2 Time Measurements MV dec time: 0.13 sec Doppler Measurements & Calculations MV E max marley: 71.7 cm/sec MV V2 max: 75.7 cm/sec MV P1/2t max marley: 75.7 cm/sec MV A max marley: 38.1 cm/sec MV max P.3 mmHg MV P1/2t: 76.6 msec MV E/A: 1.9 MV V2 mean: 39.7 cm/sec MV mean P.72 mmHg MV dec slope: 289.6 cm/sec2 MV V2 VTI: 21.1 cm MVA(P1/2t): 2.9 cm2 Ao V2 max: 86.7 cm/sec LV V1 max: 75.5 cm/sec MR max marley: 726.0 cm/sec Ao max P.0 mmHg LV V1 max P.3 mmHg MR max P.8 mmHg Ao V2 mean: 60.6 cm/sec LV V1 mean P.95 mmHg MR mean marley: 547.8 cm/sec Ao mean P.6 mmHg LV V1 mean: 44.6 cm/sec MR mean P.8 mmHg Ao V2 VTI: 19.6 cm LV V1 VTI: 17.1 cm MR VTI: 281.7 cm PA V2 max: 58.2 cm/sec TR max marley: 375.1 cm/sec TR max P.3 mmHg Interpretation Summary Normal LV size. Left ventricular systolic function is normal. The estimated ejection fraction is 55 %. Diastolic function is indeterminate. Pulmonary artery systolic pressure is 60 mmHg. Compared to previous study, the left ventricular systolic function is the same.. Ordering Physician: Nafisa Chawla Referring Physician: Nafisa Chawla Performed By: Tom Mirza RCS
== END ==
LOC: CVS 08:01
PROVIDERS: Family Provider Internal Medicine; PCP Internal Medicine; Referring Provider Internal Medicine; Visit Provider Internal Medicine
DX: R06.02 Shortness of breath (principal)
CPT/HCPCS: 93306

== ENCOUNTER 2018-09-16 21:46 | Emergency (ER) | payer MEDICARE, SELFPAY ==
[2018-07-25 15:56] VITALS: BMI 23.8
[2018-09-16 21:46] VITALS: BP 146/72; PULSE 72; RESP 16; TEMP 36.8; O2SAT 98; BMI 25.7
--- NOTE | 2018-09-16 21:55 | RAD_ITS ---
STUDY: X-RAY - RIGHT ANKLE REASON FOR EXAM: Female, 78 years old. Fall. Pain. TECHNIQUE: view(s) of the ankle. COMPARISON: None. FINDINGS: Normal visualized distal tibia and fibula. Normal medial and lateral malleoli. Normal tibiotalar articulation and ankle mortise. There is a posterior calcaneal enthesophyte at the insertion site of the Achilles' tendon. Otherwise normal visualized talus and calcaneus. The visualized subtalar, talonavicular, calcaneocuboid and tarsal articulations are normal. There is soft tissue prominence anterior to the tibiotalar articulation which likely represent a joint effusion. There are calcifications of the distal Achilles tendon. RAD/Ankle min 3 Views IMPRESSION: Joint effusion. No demonstrated fracture, dislocation, or destructive osseous lesion. Electronically Signed: Trevor Rosen MD at 22:37 EST , Service support ,
--- NOTE | 2018-09-16 21:59 | ED.DCSUM_ITS ---
- ER Visit Summary Date of Service: 09/16/18 Chief Complaint: Right ankle pain, left lower back pain History of Present Illness: The patient is a 78 F who slipped on the ice and fell. She injured her right ankle. She landed on her left lower back. She has minimal pain in her back. Most of her pain is in the right ankle. This occurred about 3 hours ago. Pain is worse with walking. She took 2 Tylenol when this happened. Denies any history of fractures to the ankle. Physical Examination: Vital signs reviewed. Her back is nontender to palpation anywhere. Right ankle is tender over the medial malleolus. No swelling. She has full range of motion with pain. No tibial tenderness. No foot tenderness. She has 2+ pulses. Test Results: Ankle x-ray reveals an effusion but no fractures. Lumbar x-ray reveals no fractures as well. Emergency Department Course and Treatment: The patient's initial ankle x-ray revealed nothing acute. She then stated that her back is starting to hurt a little bit more so we obtained an x-ray and it was normal as well. Patient will be discharged to use ice and use NSAIDs at home. She will follow-up with her PCP. Treatment Plan: [] Disposition: Discharge Impression: Right ankle sprain, lumbar contusion This note was generated with [employer] dictation software. It may contain incorrect words, spelling, and punctuation that were not noted in review of the chart prior to signing ED Disposition - Plan for ED Patient: Chief Complaint: Lower Extremity Injury Referrals: Nafisa Chawla DO [Primary Care Provider] -
--- NOTE | 2018-09-16 22:54 | RAD_ITS ---
STUDY: X-RAY - LUMBAR SPINE REASON FOR EXAM: Female, 78 years old. Status post fall. TECHNIQUE: 3 view(s) of the lumbar spine were obtained. COMPARISON: CT scan L spine 10/29/2016. FINDINGS: Normal lumbar lordosis. There is no substantial scoliosis. There is a normal alignment of the vertebrae. There is multilevel spondylosis. There is disc space narrowing at the L5-S1 level. There is degenerative arthrosis of the facet joints in the mid and lower spine. There is atherosclerotic calcification of the abdominal aorta without a demonstrated aneurysm. RAD/Lumbar Spine 2 or 3 Views IMPRESSION: Degenerative changes of the spine, as detailed above. No demonstrated fracture or subluxation Electronically Signed: Trevor Rosen MD at 23:30 EST , Service support ,
--- NOTE | 2018-09-16 23:34 | ED.DEP ---
ED Disposition - Plan for ED Patient: Disposition: Home or Assisted Living Chief Complaint: Lower Extremity Injury Instructions: ED Sprain Ankle W X Ray Referrals: Nafisa Chawla DO [Primary Care Provider] -
[2018-09-16 23:40] VITALS: BP 188/93; PULSE 67; RESP 16; O2SAT 97
== END 2018-09-16 23:45 | disposition home or self-care (01) ==
PROVIDERS: Emergency Provider Emergency Medicine; Family Provider Internal Medicine; PCP Internal Medicine
DX: S93.401A Sprain of unspecified ligament of right ankle, initial encounter (principal); S30.0XXA Contusion of lower back and pelvis, initial encounter; W00.0XXA Fall on same level due to ice and snow, initial encounter; Y93.89 Activity, other specified; Y92.89 Other specified places as the place of occurrence of the external cause; Y99.8 Other external cause status
CPT/HCPCS: 72100; 73610; 99282

== ENCOUNTER → 2018-09-21 08:00 | Outpatient (CLI) | payer MEDICARE, SELFPAY ==
[2018-09-16 21:46] VITALS: BMI 25.7
--- NOTE | 2018-09-21 08:10 | BI_ITS ---
MAMMOGRAPHY - BILATERAL SCREENING REASON FOR EXAM: Female, 78 years old. Routine annual screening examination. PERTINENT HISTORY: Aunt with breast cancer. TECHNIQUE: Digital bilateral breast gabriel (3D mammographic acquisition) in the CC and MLO projections. 2-D mediolateral oblique (MLO) and craniocaudad (CC) views of both breasts were obtained. CAD: Full Field Digital Mammography with Computer Added Detection was performed. COMPARISON: Comparison is made with prior study dated March 23, 2017 and December 18, 2015. FINDINGS: Breast Composition: There are scattered areas of fibroglandular density. There are no dominant masses or suspicious calcifications. A battery pack from a pacemaker is seen in the left axillary region. No other significant abnormalities are identified. There has been no significant change since the prior study. BI/SCREENING MAMM (CAD), BILAT IMPRESSION: Stable bilateral screening mammogram. Yearly follow-up mammogram recommended. (A) ASSESSMENT CATEGORY: BIRADS Category 2: Benign. A letter regarding these results will be sent to the patient by the facility within 30 days. Approximately 10% of breast cancers are not detected by mammography. A normal mammogram should not delay biopsy of a clinically suspicious abnormality. [id number] Electronically Signed: Steve Ramos MD at 9:18 EST Tel [phone], Service support ,
--- OUTSIDE RECORDS SUMMARY | 2018-11-25 15:08 | XMS RPT_ITS ---
:1940 Author Organization [place] Support Name Relationship Address Phone YASMINE PONCE [address] + [place] [address] YARELI PONCE Unavailable + R Unknown Unavailable Unavailable YASMINE PONCE [address] + [place] [address] YARELI PONCE Unavailable + R Unknown Unavailable Unavailable YASMINE PONCE [address] + [place] [address] + [place] [address] R Unknown Unavailable Unavailable YASMINE PONCE [address] + [place] [address] + [place] [address] R Unknown Unavailable Unavailable YASMINE PONCE [address] + [place] [address] + [place] [address] R Unknown Unavailable Unavailable YASMINE PONCE [address] + [place] [address] + [place] [address] R Unknown Unavailable Unavailable YASMINE PONCE [address] + [place] [address] + [place] [address] R Unknown Unavailable Unavailable YASMINE PONCE [address] + [place] [address] + [place] [address] R Unknown Unavailable Unavailable YASMINE PONCE [address] + [place] [address] + [place] [address] R Unknown Unavailable Unavailable YASMINE PONCESon [address] + [place] [address] + [place] [address] R Unknown Unavailable Unavailable YASMINE PONCESon [address] + [place] [address] + [place] [address] R Unknown Unavailable Unavailable YASMINE PONCESon [address] + [place] [address] + [place] [address] R Unknown Unavailable Unavailable YASMINE PONCE [address] + [place] [address] + [place] [address] R Unknown Unavailable Unavailable YASMINE PONCE [address] + [place] [address] + [place] [address] R Unknown Unavailable Unavailable YASMINE PONCE [address] + [place] [address] + [place] [address] R Unknown Unavailable Unavailable YASMINE PONCESon [address] + [place] [address] + [place] [address] R Unknown Unavailable Unavailable [address] + [place] [address] [address] + [place] [address] R Unknown Unavailable Unavailable [address] + [place] [address] [address] PON[address] + [place] [address] R Unknown Unavailable Unavailable [address] + [place] [address] [address]INE PON[address] + [place] [address] R Unknown Unavailable Unavailable [address] + [place] [address] YASMINE PONCE [address] + [place] [address] R Unknown Unavailable Unavailable [address] + [place] [address] YASMINE PONCE [address] + [place] [address] R Unknown Unavailable Unavailable [address] + [place] [address] YASMINE PONCE [address] + [place] [address] R Unknown Unavailable Unavailable Care Team Providers Name Role Phone Fast DO, Nafisa A Attending Unavailable Fast DO, Nafisa A Referring Unavailable Fast DO, Nafisa A Consulting Unavailable Golden Kruger Attending Unavailable Fast, Nafisa Referring Unavailable Fast, Nafisa Primary Care Unavailable Juan Hernández Attending Unavailable Fast, Nafisa Attending Unavailable Fast, Nafisa Primary Care Unavailable Fast, Nafisa Referring Unavailable Fast, Nafisa Primary Care Unavailable Carlton Rosales Attending Unavailable Yasir Banegas Attending Unavailable Fast, Nafisa Primary Care Unavailable Fast, Nafisa Referring Unavailable Fast, Nafisa Primary Care Unavailable Renner, Mikey Attending Unavailable Fast, Nafisa Primary Care Unavailable Renner, Mikey Attending Unavailable Fast, Nafisa Primary Care Unavailable Renner, Mikey Attending Unavailable Robert Johnston Attending Unavailable Fast, Nafisa Primary Care Unavailable PrestonRobert Referring Unavailable Fast, Nafisa Attending Unavailable Fast, Nafisa Referring Unavailable Fast, Nafisa Primary Care Unavailable Slick, Golden Attending Unavailable Fast, Nafisa Referring Unavailable Prajosefina, Yasir Attending Unavailable Fast, Nafisa Referring Unavailable Fast, Nafisa Primary Care Unavailable Yasir Banegas Consulting Unavailable KalliDaniela Attending Unavailable Fast, Nafisa Referring Unavailable Fast, Nafisa Primary Care Unavailable Slick, Golden Attending Unavailable Fast, Nafisa Referring Unavailable Fast, Nafisa Primary Care Unavailable KalliAllyDaniela Attending Unavailable Fast, Nafisa Referring Unavailable Fast, Nafisa Primary Care Unavailable Fast, Nafisa Attending Unavailable Fast, Nafisa Referring Unavailable Fast, Nafisa Primary Care Unavailable Slick, Bono Attending Unavailable Fast, Nafisa Referring Unavailable Fast, Nafisa Attending Unavailable Fast, Nafisa Referring Unavailable Fast, Nafisa Primary Care Unavailable Fast, Nafisa Attending Unavailable Fast, Nafisa Primary Care Unavailable Fast, Nafisa Referring Unavailable Fast, Nafisa Attending Unavailable Fast, Nafisa Primary Care Unavailable Fast, Nafisa Attending Unavailable Fast, Nafisa Referring Unavailable Fast, Nafisa Primary Care Unavailable KalliAleshae Attending Unavailable Fast, Nafisa Referring Unavailable Fast, Nafisa Primary Care Unavailable Purpose Purpose PROBLEMS PROBLEMS DATE TYPE CONDITION / CODE ATTENDING STATUS SOURCE 09/25/2018 Unknown S93.409A - Sprain of Carlton Rosales Active [facility] unspecified ligament Community of unspecified Hospital ankle, initial Repository encounter / S93.409A(ICD-10) 08/27/2018 Unknown R06.02 - Shortness Slick, Golden Active [facility] of breath / Community R06.02(ICD-10) Hospital Repository 08/08/2018 Unknown M81.0 - Age-related Fast, Nafisa Active [facility] osteoporosis without Community current pathological Hospital fracture / Repository M81.0(ICD-10) 07/26/2018 Unknown R93.89 - Abnormal Fast, Nafisa Active [place] findings on Community diagnostic imaging Hospital of other specified Repository body structures / R93.89(ICD-10) 06/13/2018 Unknown R07.9 - Chest pain, Slick, Golden Active [place] unspecified / Community R07.9(ICD-10) Hospital Repository 04/03/2018 Unknown I48.0 - Paroxysmal Slick, Golden Active [facility] atrial fibrillation Community / I48.0(ICD-10) Hospital Repository 04/03/2018 Unknown I10 - Essential Slick, Golden Active [facility] (primary) Community hypertension / Hospital I10(ICD-10) Repository 04/03/2018 Unknown Z95.0 - Presence of Slick, Golden Active [facility] cardiac pacemaker / Community Z95.0(ICD-10) Hospital Repository 04/03/2018 Unknown E78.5 - Slick, Golden Active [place] Hyperlipidemia, Community unspecified / Hospital E78.5(ICD-10) Repository 04/17/2018 Unknown S52.572D - Other Robert Johnston Active [facility] intraarticular Community fracture of lower Hospital end of left radius, Repository subsequent encounter for closed fracture with routine healing / S52.572D(ICD-10) 06/07/2018 Unknown 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, Community unspecified / Hospital D50.9(ICD-10) Repository 11/10/2017 Unknown R05 - Cough / Nafisa Chawla Active [facility] R05(ICD-10) [facility] Repository 10/09/2017 Unknown T14.8XXA - Other Renner, Mikey Active [facility] injury of Community unspecified body Hospital region, initial Repository encounter / T14.8XXA(ICD-10) PROCEDURES PROCEDURES No Procedure Records FoundVITAL SIGNS VITAL SIGNS No Vital Signs Records FoundRESULTS RESULTS DISCHARGE INSTRUCTION Observed: 09/24/2018 Status: F Source: [place] 11:37 PM [facility] REPOSITORY [facility] Medical Records Department [address] [place] [address] Discharge Instruction 09/24/182335 MR#: [id number] Acct: [id number] Name: HAMYAYAGLORIA Shaq Rep #: [id number] : 1940 78 From: Carlton Rosales MD PCP: Nafisa Chawla DO Status: REG ER ED Disposition - Plan for ED Patient: Chief Complaint: Upper Extremity Injury Instructions: ED Laceration Hand Referrals: Nafisa Chawla DO [Primary Care Provider] - What to do if you have Problems For any increased pain, shortness of breath, bleeding, nausea or vomiting, chest pain, or any unexpected problems, contact your Primary Care Provider. Call [facility] ([phone]) or report to the closest Emergency Room. Call 911 if necessary. 09/24/182336 <Electronically signed by Carlton Rosales MD> Date Carlton Rosales MD Cosigner Signature (If Indicated): Date CC: Nafisa Chawla DO EMERGENCY DEPARTMENT Observed: 09/24/2018 Status: F Source: [place] SUMMARY 11:36 PM [facility] REPOSITORY [facility] Medical Records Department [address] [place] [address] Emergency Department Summary 09/24/18 2331 MR#: [id number] Acct: [id number] Name: GLORIA PONCE Rep #: [id number] : 1940 78 From: Carlton Rosales MD PCP: Nafisa Chawla DO Status: REG ER - ER Visit Summary Date of Service: 09/24/18 Chief Complaint: Right hand injury History of Present Illness: The patient is a 78 F who presents with an injury to her right hand. She was holding her dog's chain when the dog began to trace a deer in the chain injured her right hand. She sustained injuries to her right index ring and small finger with lacerations to the index and small fingers. She is uncertain of her last tetanus immunization but does not believe is up-to-date. She had a fall a few days ago and was seen in the emergency department and is still complaining of some ankle pain although she had normal x-rays. Physical Examination: Afebrile hypertensive but vitals otherwise unremarkable Heart regular rate No respiratory distress There are small wounds to the palmar aspect of the right index finger overlying the middle phalanx with two small roughly 2 mm lacerations, there is a 2 cm total laceration length of the right fifth fingertip which comes across the nailbed with avulsion of the distal nail and extends along the side of the finger with a small flap she has mild bleeding Test Results: Hand x-ray on my review shows no obvious fractures Emergency Department Course and Treatment: Patient's small finger was anesthetized using a digital block with 2% lidocaine. Good anesthesia was achieved. The wound was cleansed with sterile saline. Discussed possibility of poor wound healing although I do believe the flap is thick enough that it was amenable to suturing. 3 simple interrupted 5 0 nonabsorbable sutures were placed. Patient instructed on local wound care. She was instructed on signs and symptoms to monitor for and conditions which should prompt return here to the emergency department. Wounds cleansed and dressed with a hemostatic dressing to the right fifth finger by nursing staff and the patient was discharged. Treatment Plan: [] Disposition: Discharge Impression: Right hand lacerations Laceration repair This note was generated with [employer] dictation software. It may contain incorrect words, spelling, and punctuation that were not noted in review of the chart prior to signing ED Disposition - Plan for ED Patient: Chief Complaint: Upper Extremity Injury Referrals: Nafisa Chawla DO [Primary Care Provider] - What to do if you have Problems For any increased pain, shortness of breath, bleeding, nausea or vomiting, chest pain, or any unexpected problems, contact your Primary Care Provider. Call [facility] ([phone]) or report to the closest Emergency Room. Call 911 if necessary. 09/24/18 2336 <Electronically signed by Carlton Rosales MD> Date Carlton Rosales MD Cosigner Signature (If Indicated): Date CC: Nafisa Chawla DO HAND MIN 3 VIEWS Observed: 09/24/2018 Status: F Source: [place] 10:45 PM [facility] REPOSITORY [facility] Imaging Services [facility] [address] Hand Min 3 Views MR#: [id number] Acct: [id number] Name: GLORIA PONCE Shaq Rep #: [id number] : 1940 F 78 From: Cindy Franz MD PCP: Nafisa Chawla DO Status: DEP ER Study: Hand Min 3 Views Date of Exam: 09/24/18 Exam# [id number] Ordering Dr: Carlton Rosales MD STUDY: X-RAY - RIGHT HAND REASON FOR EXAM: Female, 78 years old. Injury walking a dog TECHNIQUE: Ray view(s) of the hand. COMPARISON: None. FINDINGS: There is joint space narrowing of the radiocarpal articulation consistent with degenerative arthrosis. Normal distal radioulnar joint. This chondrocalcinosis. Normal visualized carpal bones. Normal carpal articulations Normal carpometacarpal articulation of the thumb. Normal second through fifth carpometacarpal joints. Normal metacarpi. Normal metacarpophalangeal joint of the thumb. Normal interphalangeal joint of the thumb. Normal proximal and distal phalanges of the thumb. Normal metacarpophalangeal joints of the second through fifth fingers. Normal proximal and distal interphalangeal joints of the second through fifth fingers. There is a subtle nondisplaced fracture of the tip of the distal phalanx of the fifth digit. This is allowing for summation of shadows. The bones overall are osteopenic. RAD/Hand Min 3 Views IMPRESSION: Possible fracture of the tip of the fifth digit distal phalanx. Bony osteopenia Degenerative change chondrocalcinosis of the radiocarpal joint. No other visualized acute fracture.. Electronically Signed: Cindy Franz MD at 0:10 EST Tel , Service support , CC: Nafisa Chawla DO; Carlton Rosales MD Recyclable Materials Collector: Signed SCREENING MAMM (CAD), Observed: 09/21/2018 Status: F Source: [place] BIL[place] 8:10 AM [facility] REPOSITORY [facility] Imaging Services [address] [place] [address] SCREENING MAMM (CAD), BILAT MR#: [id number] Acct: [id number] Name: GLORIA PONCE Rep #: [id number] : 1940 F 78 From: Steve Ramos MD PCP: Nafisa Chawla DO Status: REG CLI Study: SCREENING MAMM (CAD), BILAT Date of Exam: 09/21/18 Exam# [id number] Ordering Dr: Nafisa Chawla DO MAMMOGRAPHY - BILATERAL SCREENING REASON FOR EXAM: Female, 78 years old. Routine annual screening examination. PERTINENT HISTORY: Aunt with breast cancer. TECHNIQUE: Digital bilateral breast gabriel (3D mammographic acquisition) in the CC and MLO projections. 2-D mediolateral oblique (MLO) and craniocaudad (CC) views of both breasts were obtained. CAD: Full Field Digital Mammography with Computer Added Detection was performed. COMPARISON: Comparison is made with prior study dated March 23, 2017 and December 18, 2015. FINDINGS: Breast Composition: There are scattered areas of fibroglandular density. There are no dominant masses or suspicious calcifications. A battery pack from a pacemaker is seen in the left axillary region. No other significant abnormalities are identified. There has been no significant change since the prior study. BI/SCREENING MAMM (CAD), BILAT IMPRESSION: Stable bilateral screening mammogram. Yearly follow-up mammogram recommended. (A) ASSESSMENT CATEGORY: BIRADS Category 2: Benign. A letter regarding these results will be sent to the patient by the facility within 30 days. Approximately 10% of breast cancers are not detected by mammography. A normal mammogram should not delay biopsy of a clinically suspicious abnormality. [id number] Electronically Signed: Steve Ramos MD at 9:18 EST Tel [phone], Service support , CC: Nafisa Chawla DO Recyclable Materials Collector: Signed DISCHARGE INSTRUCTION Observed: 09/16/2018 Status: F Source: [place] 11:35 PM [facility] REPOSITORY [facility] Medical Records Department [address] [place] [address] Discharge Instruction 09/16/18 2334 MR#: [id number] Acct: [id number] Name: GLORIA PONCE Rep #: [id number] : 1940 78 From: Juan Hernández MD PCP: Nafisa Chawla DO Status: REG ER ED Disposition - Plan for ED Patient: Disposition: Home or Assisted Living Chief Complaint: Lower Extremity Injury Instructions: ED Sprain Ankle W X Ray Referrals: Nafisa Chawla DO [Primary Care Provider] - What to do if you have Problems For any increased pain, shortness of breath, bleeding, nausea or vomiting, chest pain, or any unexpected problems, contact your Primary Care Provider. Call [facility] ([phone]) or report to the closest Emergency Room. Call 911 if necessary. 09/16/182334 <Electronically signed by Juan Hernández MD> Date Juan Hernández MD Cosigner Signature (If Indicated): Date CC: Nafisa Chawla DO EMERGENCY DEPARTMENT Observed: 09/16/2018 Status: F Source: [place] SUMMARY 11:34 PM [facility] REPOSITORY [facility] Medical Records Department [address] [place] [address] Emergency Department Summary 09/16/18 2158 MR#: [id number] Acct: [id number] Name: GLORIA PONCE Rep #: [id number] : 1940 78 From: Juan Hernández MD PCP: Nafisa Chawla DO Status: REG ER - ER Visit Summary Date of Service: 09/16/18 Chief Complaint: Right ankle pain, left lower back pain History of Present Illness: The patient is a 78 F who slipped on the ice and fell. She injured her right ankle. She landed on her left lower back. She has minimal pain in her back. Most of her pain is in the right ankle. This occurred about 3 hours ago. Pain is worse with walking. She took 2 Tylenol when this happened. Denies any history of fractures to the ankle. Physical Examination: Vital signs reviewed. Her back is nontender to palpation anywhere. Right ankle is tender over the medial malleolus. No swelling. She has full range of motion with pain. No tibial tenderness. No foot tenderness. She has 2+ pulses. Test Results: Ankle x-ray reveals an effusion but no fractures. Lumbar x-ray reveals no fractures as well. Emergency Department Course and Treatment: The patient's initial ankle x-ray revealed nothing acute. She then stated that her back is starting to hurt a little bit more so we obtained an x-ray and it was normal as well. Patient will be discharged to use ice and use NSAIDs at home. She will follow-up with her PCP. Treatment Plan: [] Disposition: Discharge Impression: Right ankle sprain, lumbar contusion This note was generated with [employer] dictation software. It may contain incorrect words, spelling, and punctuation that were not noted in review of the chart prior to signing ED Disposition - Plan for ED Patient: Chief Complaint: Lower Extremity Injury Referrals: Nafisa Chawla, DO [Primary Care Provider] - What to do if you have Problems For any increased pain, shortness of breath, bleeding, nausea or vomiting, chest pain, or any unexpected problems, contact your Primary Care Provider. Call [facility] ([phone]) or report to the closest Emergency Room. Call 911 if necessary. 09/16/18 5519 <Electronically signed by Juan Hernández MD> Date Juan Hernández MD Cosigner Signature (If Indicated): Date CC: Nafisa Chawla DO LUMBAR SPINE 2 OR 3 Observed: 09/16/2018 Status: F Source: [place] VIEWS 10:45 PM [facility] REPOSITORY [facility] Imaging Services [address] [place] [address] Lumbar Spine 2 or 3 Views MR#: [id number] Acct: [id number] Name: GLORIA PONCE Rep #: [id number] : 1940 F 78 From: Trevor Rosen MD PCP: Nafisa Chawla DO Status: REG ER Study: Lumbar Spine 2 or 3 Views Date of Exam: 09/16/18 Exam# [id number] Ordering Dr: Juan Hernández MD STUDY: X-RAY - LUMBAR SPINE REASON FOR EXAM: Female, 78 years old. Status post fall. TECHNIQUE: 3 view(s) of the lumbar spine were obtained. COMPARISON: CT scan L spine 10/29/2016. FINDINGS: Normal lumbar lordosis. There is no substantial scoliosis. There is a normal alignment of the vertebrae. There is multilevel spondylosis. There is disc space narrowing at the L5-S1 level. There is degenerative arthrosis of the facet joints in the mid and lower spine. There is atherosclerotic calcification of the abdominal aorta without a demonstrated aneurysm. RAD/Lumbar Spine 2 or 3 Views IMPRESSION: Degenerative changes of the spine, as detailed above. No demonstrated fracture or subluxation Electronically Signed: Trevor Rosen MD at 23:30 EST , Service support , CC: Nafisa Chawla DO; Juan Hernández MD Recyclable Materials Collector: Signed ANKLE MIN 3 VIEWS Observed: 09/16/2018 Status: F Source: [place] 9:56 PM [facility] REPOSITORY [facility] Imaging Services [address] [place] [address] Ankle min 3 Views MR#: [id number] Acct: [id number] Name: GLORIA PONCE Rep #: [id number] : 1940 F 78 From: Treovr Rosen MD PCP: Nafisa Chawla DO Status: REG ER Study: Ankle min 3 Views Date of Exam: 09/16/18 Exam# [id number] Ordering Dr: Juan Hernández MD STUDY: X-RAY - RIGHT ANKLE REASON FOR EXAM: Female, 78 years old. Fall. Pain. TECHNIQUE: view(s) of the ankle. COMPARISON: None. FINDINGS: Normal visualized distal tibia and fibula. Normal medial and lateral malleoli. Normal tibiotalar articulation and ankle mortise. There is a posterior calcaneal enthesophyte at the insertion site of the Achilles' tendon. Otherwise normal visualized talus and calcaneus. The visualized subtalar, talonavicular, calcaneocuboid and tarsal articulations are normal. There is soft tissue prominence anterior to the tibiotalar articulation which likely represent a joint effusion. There are calcifications of the distal Achilles tendon. RAD/Ankle min 3 Views IMPRESSION: Joint effusion. No demonstrated fracture, dislocation, or destructive osseous lesion. Electronically Signed: Trevor Rosen MD at 22:37 EST , Service support , CC: Nafisa Chawla DO; Juan Hernández MD Recyclable Materials Collector: Signed ECHOCARDIOGRAM COMPLETE Observed: 08/09/2018 Status: F Source: [place] 12:14 PM [facility] REPOSITORY [facility] Cardiovascular [place] [address] Echo Complete 08/09/18 0805 MR#: [id number] Acct: [id number] Name: GLORIA PONCE Shaq Rep #: [id number] : 1940 78 From: Golden Kruger MD Attending Dr: Nafisa Chawla DO Status: REG CLI Ordering Dr: Nafisa Chawla DO Date: 08/09/18 Location: [facility] Sex: F C Admitted: Reason For Study: SOB Procedure This was a 2D Doppler, Color Flow transthoracic echocardiogram. Technically difficult study, unable to utilize Definity due to increased pressures. Exam performed in department. Left Ventricle Normal LV size. Left ventricular systolic function is normal. The estimated ejection fraction is 55 %. Diastolic function is indeterminate. No regional wall motion abnormalities noted. Right Ventricle Normal RV size. ICD or pacer leads identified within the right ventricle. Normal systolic function. Atria The left atrium is moderately enlarged. Normal right atrium. ICD or pacer leads identified within the right atrium. Mitral Valve Normal mitral valve. Mild (1+) eccentric mitral valve insufficiency. Tricuspid Valve Normal tricuspid valve. Moderate (2+) tricuspid valve insufficiency. Pulmonary artery systolic pressure is 60 mmHg. Aortic Valve Normal aortic valve. Pulmonic Valve Normal pulmonic valve. Great Vessels Normal aortic root. The pulmonary artery is normal size. Normal inferior vena cava. Pericardium/Pleural No pericardial effusion. MMode/2D Measurements AND Calculations LVIDd: 4.2 cm IVSd: 1.4 cm Ao root diam: 3.3 cm LVIDs: 3.1 cm LVPWd: 1.0 cm LA dimension: 4.6 cm FS: 25.0 % LAV(MOD-sp4): 100.0 ml LVAd ap4: 24.2 cm2 SV(MOD-sp4): 35.8 ml EDV(MOD-sp4): 70.9 ml EDV(sp4-el): 71.5 ml LVAs ap4: 16.1 cm2 ESV(MOD-sp4): 35.1 ml ESV(sp4-el): 35.4 ml EF(MOD-sp4): 50.5 % EF(sp4-el): 50.4 % SV(sp4-el): 36.1 ml LA A4 area: 28.0 cm2 RA A4 area: 17.8 cm2 Time Measurements MV dec time: 0.13 sec Doppler Measurements AND Calculations MV E max marley: 71.7 cm/sec MV V2 max: 75.7 cm/sec MV P1/2t max marley: 75.7 cm/sec MV A max marley: 38.1 cm/sec MV max P.3 mmHg MV P1/2t: 76.6 msec MV E/A: 1.9 MV V2 mean: 39.7 cm/sec MV mean P.72 mmHg MV dec slope: 289.6 cm/sec2 MV V2 VTI: 21.1 cm MVA(P1/2t): 2.9 cm2 Ao V2 max: 86.7 cm/sec LV V1 max: 75.5 cm/sec MR max marley: 726.0 cm/sec Ao max P.0 mmHg LV V1 max P.3 mmHg MR max P.8 mmHg Ao V2 mean: 60.6 cm/sec LV V1 mean P.95 mmHg MR mean marley: 547.8 cm/sec Ao mean P.6 mmHg LV V1 mean: 44.6 cm/sec MR mean P.8 mmHg Ao V2 VTI: 19.6 cm LV V1 VTI: 17.1 cm MR VTI: 281.7 cm PA V2 max: 58.2 cm/sec TR max marley: 375.1 cm/sec TR max P.3 mmHg Interpretation Summary Normal LV size. Left ventricular systolic function is normal. The estimated ejection fraction is 55 %. Diastolic function is indeterminate. Pulmonary artery systolic pressure is 60 mmHg. Compared to previous study, the left ventricular systolic function is the same.. Ordering Physician: Nafisa Chawla Referring Physician: Nafisa Chawla Performed By: Tom Mirza RCS 08/09/18 1213 Date Golden Kruger MD CC: Nafisa Chawla DO Date Dictated: 08/09/18 0805 Date Transcribed: 08/09/18 1213 Recyclable Materials Collector: Signed DEXA BONE DENSITY Observed: 08/08/2018 Status: F Source: [place] STUDY 8:30 AM [facility] REPOSITORY [facility] Imaging Services [address] [place] [address] Dexa Bone Density Study MR#: [id number] Acct: [id number] Name: HAMYAYAGLORIA Rep #: [id number] : 1940 F 78 From: Steve Ramos MD PCP: Nafisa Chawla DO Status: REG CLI Study: Dexa Bone Density Study Date of Exam: 08/08/18 Exam# [id number] Ordering Dr: Nafisa Chawla DO STUDY: DUAL ENERGY X-RAY ABSORPTIOMETRY / DXA REASON FOR EXAM: Female, 78 years old. The patient is postmenopausal. Loss of height. TECHNIQUE: Bone Mineral Density (BMD) measurements of lumbar spine and bilateral hips were obtained. COMPARISON: Comparison is made with prior examination dated April 28, 2016. FINDINGS: Lumbar Spine (L1-L4): g/cm2 (1.181) / T-score (0.1) / Z-score (1.9) Findings are suggestive of normal bone density with a low fracture risk. Left Femur Total: g/cm2 (0.849) / T-score (-1.3) / Z- score (0.6) Left Femoral Neck: g/cm2 (0.770) / T-score (-1.9) / Z- score (0.1) Right Femur Total: g/cm2 (0.947) / T-score (-0.5) / Z- score (1.4) Right Femoral Neck: g/cm2 (0.819) / T-score (-1.6) / Z-score (0.5) The T-Scores on the most recent prior examination were: Lumbar Spine (L1-L4): There has been worsening of bone density since the previous examination. Left Femur Total: which represents a worsening of 4.2%. Right Femur Total: which represents a worsening of 3.1%. BD/Dexa Bone Density Study IMPRESSION: The patient is considered osteopenic as outlined below according to World Dannie Organization (WHO) criteria with a moderate fracture risk. There has been worsening of bone density since the previous examination. Reference Information: The T-score is the number of standard deviations above or below the standard which is normal for young adults at their peak bone mineral density. The World Health Organization (WHO) interprets the T-scores as follows: Above -1 Normal bone density Between -1 and -2.5 Osteopenia Equal to / or below -2.5 Osteoporosis As a practical clinical guideline, osteopenia may be graded as follows: Mild -1 through -1.5 Moderate -1.6 through -2.0 Severe -2.1 through -2.4 The Z-score is the number of standard deviations above or below age-matched controls. A Z-score of less than -1.5 would be considered abnormal. References: 1. NIH Osteoporosis and Related Bone Diseases http://www.osteo.org 2. International Society for Clinical Densitometry http://www.iscd.org 3. National Osteoporosis Foundation http://www.nof.org Electronically Signed: Steve Ramos MD at 15:48 EST Tel [phone], Service support , CC: Nafisa Chawla DO Recyclable Materials Collector: Signed BNP,B-TYPE NATRIURETIC Collected: 07/25/2018 Status: F Source: [place] 2:14 PM [facility] REPOSITORY TYPE CODE TESTS RESULT OUT OF RANGE REFERENCE UNITS LAB L503.6620 0-100 pg/mL High B-TYPE 335.7 BRO PEP Performed By: #### L503.6620 #### [facility] [address], [address] CHEST PA AND LATERAL Observed: 07/17/2018 Status: F Source: [place] 12:29 PM [facility] REPOSITORY [facility] Imaging Services [address] [place] [address] Chest PA and Lateral MR#: [id number] Acct: [id number] Name: GLORIA PONCE Rep #: [id number] : 1940 F 78 From: Steve Ramos MD PCP: Nafisa Chawla DO Status: REG CLI Study: Chest PA and Lateral Date of Exam: 07/17/18 Exam# [id number] Ordering Dr: Nafisa Chawla DO STUDY: X-RAY CHEST REASON FOR EXAM: Female, 78 years old. 3 day history of shortness of breath. TECHNIQUE: PA and lateral views of the chest. COMPARISON: Comparison is made with prior study dated September 05, 2017. FINDINGS: Stable 9 mm nodule in the left suprahilar region suggestive of a calcified granuloma. There is blunting of the left cosmetic angle with mild increased markings at the left lung base. This may represent left basilar atelectasis. There is mild cardiac enlargement. A left-sided dual-chamber pacemaker is seen. Normal mediastinum and rocael. Normal visualized pulmonary arteries. There is atherosclerotic tortuosity of the aortic arch and descending thoracic aorta. There is demineralization of the osseous structures. Normal visualized ribs, clavicles, and shoulders. There is no demonstrated abnormality of the visualized soft tissue structures of the upper abdomen. RAD/Chest PA and Lateral IMPRESSION: Blunting of the left costophrenic angle with mild increased markings at the left lung base suggestive of atelectasis. Follow-up is recommended. Electronically Signed: Steve Ramos MD at 12:48 EST Tel [phone], Service support , CC: Nafisa Chawla DO Recyclable Materials Collector: Signed STRESS REPORT Observed: 05/16/2018 Status: F Source: [place] 11:07 AM [facility] REPOSITORY [facility] Cardiovascular Services [address] [place] [address] MR#: [id number] Acct: [id number] Name: GLORIA PONCE Rep #: [id number] : 1940 78 From: Golden Kruger MD Primary Care: Nafisa Chawla DO Status: REG CLI Ordering Dr: Sex: F C Stress Test Report Pharmacologic myocardial perfusion stress test. 78-year-old lady with a history of chest pain. Stress protocol: Resting EKG demonstrates normal sinus rhythm with a rate of 60 bpm and mildly downsloping ST depression noted in lead III. Normal intervals and noted resting blood pressure is 164/98 mmHg. 0.4 mg regadenoson was infused per usual protocol followed by rapid intravenous saline flush injection continuous EKG monitoring was performed. The maximum heart rate attained was 69 bpm was 48% maximum predicted heart rate maximum workload was 1 metabolic equivalent. Resting blood pressure is 164/98 final blood pressure is 146/82. Myocardial perfusion protocol. 11.9 mCi of technetium 99m sestamibi was injected at rest. 0.4 mg of regadenoson was infused. At peak infusion 33.8 mCi of technetium 99m sestamibi was injected. Stress images were obtained stress and rest images were reconstructed and compared in the short axis vertical and horizontal long axis. Gated images were also obtained Perfusion SPECT analysis. Review of the images demonstrate normal uptake of tracer noted in all areas of myocardium on the stress and rest images with no evidence of ischemia. The resting images similarly demonstrate normal perfusion pattern in all areas with no evidence of reversibility to suggest ischemia. A tiny apical defect is noted which most likely represents apical striping. No obvious ischemia or infarct is present. Gated SPECT analysis: The gated ejection fraction is noted to be 62%. Conclusion: Normal pharmacologic myocardial perfusion stress test. Preserved ejection fraction. 05/16/18 1107 <Electronically signed by Golden Kruger MD> Date Golden Kruger MD CC: Nafisa Chawla DO Date Dictated: 05/16/184 Date Transcribed: 05/16/181103 Recyclable Materials Collector: CO Signed THYROID Observed: 05/16/2018 Status: F Source: [place] 8:54 AM [facility] REPOSITORY [facility] Imaging Services [address] [place] [address] Thyroid MR#: [id number] Acct: [id number] Name: HAMYAYAGLORIA Rep #: [id number] : 1940 F 78 From: Ivan Thorne MD PCP: Nafisa Chawla DO Status: REG CLI Study: Thyroid Date of Exam: 05/16/18 Exam# [id number] Ordering Dr: Nafisa Chawla DO STUDY: THYROID ULTRASOUND REASON FOR EXAM: Female, 78 years old. Nodules. TECHNIQUE: Ultrasound evaluation of the thyroid was performed with real-time and static yen-scale imaging. COMPARISON: 06/26/2015, 03/18/2016. FINDINGS: RIGHT LOBE: The right lobe of the thyroid gland measures 4.5 x 1.3 x 1.5 cm. There is a homogeneous echotexture. There are no demonstrated solid, cystic or complex lesions. LEFT LOBE: The left lobe of the thyroid gland measures 4.8 x 1.2 x 1.7 cm. There is a homogeneous echotexture. Several tiny nodules are seen, primarily cystic although one is solid. Measurements are 2 mm, 3 mm, and 5 mm. ISTHMUS: The isthmus measures 2 mm . The regional lymph nodes are normal. US/Thyroid IMPRESSION: Several tiny nodules on the left. Typically, subcentimeter nodules such as these do not need follow-up or further management. Electronically Signed: Ivan Thorne MD at 16:55 EDT , Service support , CC: Nafisa Chawla DO Recyclable Materials Collector: Signed CAROTID DUPLEX Observed: 05/16/2018 Status: F Source: [place] ULTRASOUND 8:38 AM [facility] REPOSITORY [facility] Cardiovascular Services [address] [place] [address] Carotid Duplex Ultrasound 05/16/18 0757 MR#: [id number] Acct: [id number] Name: GLORIA PONCE Rep #: [id number] : 1940 78 From: Marc Katz MD Attending Dr: aNfisa Chawla DO Status: REG CLI Ordering Dr: Nafisa Chawla DO Date: 05/16/18 Location: [facility] Sex: F C Admitted: Reason For Study: BILAT CAROTID ARTERY STENOSIS Rt. Velocities/BP Lt. Velocities/BP Prox CCA 73/19 cm/sec. Prox CCA 55/13 cm/sec. Mid CCA 60/19 cm/sec. Mid CCA 73/22 cm/sec. Dist CCA 51/19 cm/sec. Dist CCA 58/18 cm/sec. Prox ICA 38/14 cm/sec. Prox ICA 35/13 cm/sec. Mid ICA 76/25 cm/sec. Mid ICA 92/29 cm/sec. Dist ICA 97/32 cm/sec. Dist ICA 55/14 cm/sec. Rt. ICA/CCA = 1.6. Lt. ICA/CCA = 1.25. Prox ECA 53/14 cm/sec. Prox ECA 66/14 cm/sec. Rt. Vert. 32/11 cm/sec. Lt. Vert. 35/6 cm/sec. Right Extracranial There is intimal thickening but no significant atherosclerotic plaque noted in the right common carotid artery. There is homogeneous, smooth atherosclerotic plaque noted in the right internal carotid artery. The tortuous nature of the right internal carotid artery may result in flow velocities overestimating the degree of stenosis. There is homogeneous, smooth atherosclerotic plaque noted in the right external carotid artery. Antegrade flow is noted in the right vertebral artery. Left Extracranial There is intimal thickening but no significant atherosclerotic plaque noted in the left common carotid artery. There is homogeneous, smooth atherosclerotic plaque noted in the left internal carotid artery. The tortuous nature of the left internal carotid artery may result in flow velocities overestimating the degree of stenosis. There is homogeneous, smooth atherosclerotic plaque noted in the left external carotid artery. Antegrade flow is noted in the left vertebral artery. Procedure Carotid Duplex [id number]. Exam performed in department. Interpretation Summary Mild (<50%) stenosis right extracranial internal carotid. Mild (<50%) stenosis left extracranial internal carotid. Flow within the vertebral arteries is antegrade bilaterally. Ordering Physician: Nafisa Chawla Referring Physician: Nafisa Chawla Performed By: Sybil Burris, RDCS, RVT 05/16/18 0838 Date Marc Katz MD CC: Nafisa Chawla DO Date Dictated: 05/16/18 075 Date Transcribed: 05/16/18837 Recyclable Materials Collector: Signed PACEMAKER CHECK Observed: 04/18/2018 Status: F Source: [place] 11:47 AM [facility] REPOSITORY [facility] [address] [place] [address] Pacemaker Check Date of Service: 04/17/18 141 MR#: [id number] Acct: [id number] Name: GLORIA PONCE Rep #: [id number] : 1940 From: Daniela Mahan Age/Sex: 78/F [place] [facility] [place]: Signed Billing Codes PM Device Codes: PM Dev Prog Eval, Dual 04/17/18 1414 <Electronically signed by Daniela Mahan > Date Daniela Mahan 04/18/18 1147<Electronically signed by Golden Kruger MD> Cosign Signature: Date (if applicable) Golden Kruger MD CC: CARDIOLOGY VISIT Observed: 04/03/2018 Status: F Source: [place] RE[place] 2:44 PM [facility] REPOSITORY [facility] [address] [place] [address] OFFICE VISIT Date of Service: 04/03/18 MR#: [id number] Acct: [id number] Name: GLORIA PONCE Rep #: [id number] : 1940 Provider: Golden Kruger MD Age/Sex: 78/F [place] [facility] [place] Status: Signed HPI [facility] Chief Complaint: Follow up visit Details: GLORIA PONCE, is a 78 F who presents to the office today for follow-up visit. 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 She returns for routine follow-up visit. She says that sometimes she gets short of breath when she goes up and down stairs and also fatigue. As you know she does have a history of iron deficiency anemia. She has been compliant with her medications she has not had any neck arm or jaw discomfort suggest angina no dizziness or diaphoresis no near syncope or syncope. Her physical exam today demonstrates clear lung waggoner regular rate and rhythm normal blood pressure and no pedal edema. Pacemaker site is intact. Intake Vital Signs04/03/18 Height 5 ft 6 in 04/03/18 Weight: 145 lb 04/03/18 Body Mass Index (BMI) 23.3 04/03/18 Blood Pressure 122/82 04/03/18 Blood Pressure Location Lt brachial Intake Visit Reasons: 6 M FU (pt r/s from - and -) [employer] Sales Consultant Required: No Accompanied by: none Is patient in pain?: No Allergies hydralazine Adverse Reaction (Severe, Verified 04/03/18 14:25) Itching amlodipine besylate [From Norvasc] Adverse Reaction (Intermediate, Verified 04/03/18 14:25) Itching Medications Valsartan [Diovan] 160 mg PO BID 10/19/15 [History Confirmed 04/03/18] Cholecalciferol (Vitamin D3) [Vitamin D3] 5,000 unit PO DAILY 03/21/17 [History Confirmed 04/03/18] Diazepam [Valium] 2.5 mg PO BID 03/21/17 [History Confirmed 04/03/18] Latanoprost 0.005% [Xalatan Opthalmic] 1 drp EACH EYE QHS 03/21/17 [History Confirmed 04/03/18] Metoprolol Succinate [Toprol Xl] 50 mg PO DAILY 03/21/17 [History Confirmed 04/03/18] Omeprazole [Prilosec] 20 mg PO DAILY 03/21/17 [History Confirmed 04/03/18] Pravastatin Sodium 40 mg PO DAILY 03/21/17 [History Confirmed 04/03/18] rivaroxaban 15 mg tablet 15 mg PO QDAY #90 tab 11/14/17 [Rx Confirmed 04/03/18] duloxetine 20 mg capsule,delayed release 40 mg PO QDAY cap 11/21/17 [History Confirmed 04/03/18] magnesium oxide 400 mg capsule 400 mg PO DAILY cap 11/21/17 [History Confirmed 04/03/18] metformin 500 mg tablet 1,000 mg PO BID tab 11/21/17 [History Confirmed 04/03/18] Nifedipine [Procardia Xl] 30 mg PO DAILY 12/07/17 [History Confirmed 02/21/18] Oxycodone [Oxyir] 5 mg PO BID PRN 12/07/17 [History Confirmed 04/03/18] hydrochlorothiazide 25 mg tablet 12.5 mg PO DAILY tab 02/21/18 [History Confirmed 04/03/18] multivitamin tablet 1 tab PO QDAY 02/21/18 [History Confirmed 04/03/18] flecainide 100 mg tablet 50 mg PO BID #90 tab 03/19/18 [Rx Confirmed 04/03/18] [facility] Medical History Atherosclerotic heart disease of [place] coronary artery without angina pectoris (Chronic) DM II (diabetes mellitus, type II), controlled (Chronic) PAF (paroxysmal atrial fibrillation) (Chronic) HTN (hypertension) (Chronic) Dyslipidemia (Chronic) Anxiety (Chronic) Depression (Chronic) Diastolic dysfunction (Chronic) Lumbar disc herniation with radiculopathy (Chronic) Atrial fibrillation with RVR (Acute) Pulmonary hypertension (Chronic) Tricuspid regurgitation (Chronic) Subtherapeutic international normalized ratio (INR) (Acute) Mitral regurgitation (Chronic) Abnormal thyroid function test (Chronic) Syncope and collapse (Acute) Iron deficiency anemia (Resolved) Stool incontinence (Acute) Fecal occult blood test positive (Acute) Surgical History History of left heart catheterization (Chronic 01/2010) History of hysterectomy (Chronic) History of knee surgery (Chronic) History of lumbar discectomy (Chronic) Family History Sister Diabetes Hypertension Father , age 60 of [place] Heart disease Hypertension Myocardial infarction Mother , age 91 of cancer Cancer Social History Smoking Status: Never smoker alcohol intake: current substance use type: does not use ROS Const Const: Negative for fatigue, weakness, night sweats, excessive sweating, frequent falls, headache(s) or daytime sleepiness Eyes Eyes: Negative for loss of peripheral vision, transient loss of vision, blind spots, double vision or blurry vision ENT ENT: Positive for dizziness; negative for headache(s), balance problems, Nosebleed/epistaxis, tongue swelling or lip swelling Cardio Chest Pain: No Palpitations: Yes (occasionally) Edema: None Muscle aches with walking: None Resp Respiratory: Negative for SOB at rest, SOB orthopnea\SOB lying down, Cough, paroxysmal nocturnal dyspnea or SOB with activity GI GI: Negative nausea, vomiting, heartburn, black,tarry stools or bright, red blood in stools : Negative for hematuria Musc Musc: Negative for balance problems, muscle aches/ myalgia, muscle weakness or joint pain Skin Skin: Negative non-healing lesions, unusual bruising or rash Neuro Neuro: Positive for dizziness; negative for weakness, frequent falls, headache(s), double vision, lightheadedness, orthostatic symptoms, blurry vision or lack of coordination Darshan Hematologic/Lymphatic: Negative for easy bruising or easy bleeding Endo Endo: Negative for fatigue, excessive sweating, cold intolerance, heat intolerance, increased thirst/drinking or hair loss Psych Psych: Negative for anxiety or depression Allergy Allergy/Immunology: Negative for throat swelling, Negative for tongue swelling, Negative for hives, Negative for rash, Negative for lip swelling Cardiology Exam Const Appearance: cooperative, healthy appearing, well developed, well groomed and no acute distress Nutritional Appearance: well nourished and average body habitus Orientation: alert, awake and oriented x3 Head Head: normal to inspection, normocephalic and atraumatic Ears: hearing grossly normal bilaterally and external ears normal Nose: external nose normal, nasal mucous membranes and turbinates normal, nares normal, septum normal, no nasal discharge Face and Sinus: face symmetric Mouth: oral mucosae normal, tongue normal, oropharynx normal and moist mucous membranes Teeth and gingiva: dentition normal Throat: posterior oropharynx normal, tonsils normal and uvula midline Eyes General: appearance normal, both eyes and all related structures Eyelids: eyelids normal Conjunctivae: conjunctivae normal Pupils: PERRL, normal by confrontation and accommodation normal EOM: EOM intact bilaterally Neck Neck: normal visual inspection, trachea midline and no JVD JVD: +5 Carotids: normal carotid upstroke and bounding pulses Chest Chest inspection: normal inspection of the chest, symmetric chest movement and normal respiratory effort Auscultation: Bilateral: Clear to Auscultation Cardio Palpation: normal PMI Rate: regular rate Rhythm: regular rhythm Heart sounds: S1 normal, S2 normal and normal, physiologic split S2; negative rub, gallop or murmur GI GI: normal to inspection, soft, no hepatosplenomegaly and bowel sounds present Neuro General: alert, awake, oriented x3, no focal sensory deficit, gait normal and moves all extremities Skin Skin: no rashes or lesions noted Extremities Pulses: Normal: Right Femoral Pulse, Left Femoral Pulse, Right Dorsalis Pedis Pulse, Left Dorsalis Pedis Pulse, Right Posterior Tibial Pulse, Left Posterior Tibial Pulse, Right Radial Pulse, Left Radial Pulse Lower Extremity Edema: None: Bilateral Musculoskel Musculoskeletal: No joint tenderness Psych Psychological: normal affect Assessment AND Plan 1. PAF (paroxysmal atrial fibrillation) I48.0 recurrent Plan She does have a history of paroxysmal atrial fibrillation. She will remain on the flecainide for rate control and prevention of atrial fibrillation as well as the Toprol for rate control. She still anticoagulated with Xarelto. No changes will be made with regard to the above. 2. Essential hypertension I10 Plan Her blood pressure appears to be under good control on the current medical regimen and I would not recommend that we make any changes at this time. 3. Presence of permanent cardiac pacemaker Z95.0 07/13/15, [facility] Plan Her pacemaker appears to be functioning well she will continue with routine pacemaker evaluations in our pacemaker clinic.Dual Chamber Pacemaker Evaluation: See attached scanned cobol programmer report. Interrogation shows 213 MS episodes, <1% total time and 3 VHR episodes since last check 09/28/17. Stored e-grams show atrial flutter with appropriate MS. VHR episodes show atrial fib with VHR up to 170 bpm. Left pectoral pocket/incision w/o s/s of infection or erosion. Pt offers no new cardiac complaints. Presenting rhythm shows AAI pacing @ 72 ppm. ELECTROLYTIC DE SCALER=<1%. Estimated battery life 4.7 yrs. Device and lead measurements remain stable. Decreased atrial amplitude with adequate safety margin. Counters cleared. Next f/u appt scheduled for in 3 mos. 4. Dyslipidemia E78.5 Plan She does have a history of hyperlipidemia and is on Pravachol at this time. If she was so kind as to monitor her lipid profile will be most grateful. Thank you for allowing me to participate in the care of your patient. 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) Coding Level of Care Code Off vis,est,level 3 Diagnoses PAF (paroxysmal atrial fibrillation) I48.0 Essential hypertension I10 Hypertension type: essential hypertension Presence of permanent cardiac pacemaker Z95.0 Dyslipidemia E78.5 Coding Level of Care Code Off vis,est,level 3 Diagnoses PAF (paroxysmal atrial fibrillation) I48.0 Essential hypertension I10 Hypertension type: essential hypertension Presence of permanent cardiac pacemaker Z95.0 Dyslipidemia E78.5 04/03/18 1444 <Electronically signed by Golden Kruger MD> Date Golden Kruger MD Cosigner Signature: Date (if applicable) CC: Nafisa Chawla DO OT D/C OF NON Observed: 01/26/2018 Status: F Source: [facility] PT 9:50 AM [facility] REPOSITORY [facility] Occupational Therapy [facility] [place] [address] Fax REHABILITATION SERVICES DISCHARGE SUMMARY MR#: [id number] Acct: [id number] Name: HAMYAYAGLORIA D Rep #: [id number] : 1940 77 From: Monica IBRAHIM/Melchor, CHT Referring DrJoselo: Robert Johnston DO Status: REG RCR Eval Date: Discharge Date: HP - Discharge Summary - Patient Information GLORIA PONCE was seen in my office for initial evaluation on 11/20/17. The following Plan of Care was established for this patient: Initial Frequency: 2x /Week Initial Duration: 3 Weeks Plan: add bilateral arm lifts- to increase left UB strength. - Anticipated Interventions Anticipated Interventions: A/AAROM/PROM, Strengthening, Triggerpoint Release, Modalities, Orthoses, Ergonomic Education This patient was last seen in our office 01/02/18. Pertinent comments regarding their Occupational therapy will appear below: pt was seen for 7 OT visits- she was making good gains in her therapy with ROM and strength- pt was to progress to a strengthening HEP- pt did not retun for further tx. pt d/c at this time due to time laps in her scheduled apts. At this point I will be discontinuing this patient from occupational therapy. I would be happy to see this patient again in the future if found appropriate by the physician. Thank you! Monica Barry, OTR/L, CHT <Electronically signed by Monica Barry OTR/Melchor, CHT> 01/26/18 0950 CC: Robert Johnston DO; Nafisa Chawla DO MK Signed RE-EVALUATION - PT (1) Observed: 01/17/2018 Status: F Source: [place] 7:32 AM [facility] REPOSITORY [facility] Physical Therapy [facility] [address] [place], [place] [address] Fax REEVALUATION / MEDICARE RECERTIFICATION PHYSICAL THERAPY MR#: [id number] Acct: [id number] Name: HAMGLORIA JAVIER Shaq Rep #: [id number] : 1940 77 From: Kvng Jerez DPT, OCS, CSCS Referring Dr.: Robert Johnston DO Status: REG RCR Insurance: [employer] S[employer] SELF PAY INSURANCE Robert Johnston DO, It has been my pleasure to treat GLORIA PONCE over the last 8 visits for Abnormal balance. Please see the progress note below for an update on the physical therapy plan of care! Subjective: Better with workout. Feels better after she leaves PT. Bending and picking up objects still feels unsteady. Steps cause SOB, Tires easily. Has steps at home. Objective/Function: FGA+7 and improving despite inconsistency with balance ex. Consistency has been a problem with strength but she should be able to do these on her own. Bending and recovering and walking with VOR were both challenging balance honeycutt today. OVERALL MUCH BETTER. STILL NOT READY FOR I WITH BALANCE EX BUT WILL DO STRENGTH ON HER OWN AND SEEK MORE THERAPY TO PROGRESS AND BECOME I WITH BALANCE. Plan Plan: 4 visits 2x/week to work to I with balance ex of slant board stance and weight shifts, foam stance with challenges,and add VOR balance and bend and recover ex as safety allows. Give pics when safe and violeta dd to current HEP Goals Goal 1:: FGA to diminish fall risk. Goal Time Frame: 4-6 Weeks Goal Progress: Goal Met Goal 2:: VOR ambulation without unsteadiness. Goal Time Frame: 4-6 Weeks Goal Progress: Progressing Goal 3:: I approp HEP to minimize fall risk. Goal Time Frame: 2-4 Weeks Goal Progress: strength but no balance. Anticipated Interventions Patient/Client Instruction: Educate patient on: Condition, Plan of Care For the Purpose of:: To improve gait and locomotor functions, To improve safety Therapeutic Exercise to Include: Strength training, Balance training Comment: VOR For the Purpose of:: To improve muscle performance and motor function, To improve gait and locomotor functions, To improve safety with gait, To improve safety Please do not hesitate to contact me at [phone] by phone or if you have questions or concerns regarding this new plan of care! Sincerely, Kvng Jerez, DPT, OC <Electronically signed by Kvng ARGUETAT, OCS, CSCS> 01/17/18 0732 CC: Robert Johnston DO; Nafisa Chawla DO EB Signed For Medicare only, by signing this I certify the plan of care. Physicians Signature Date PACEMAKER CHECK Observed: 01/16/2018 Status: F Source: [place] 12:45 PM [facility] REPOSIT[facility] [place] [address] [place] [address] Pacemaker Check Date of Service: 01/10/18 1447 MR#: [id number] Acct: [id number] Name: GLORIA PONCE Rep #: [id number] : 1940 From: Daniela Mahan Age/Sex: 77/F [place] [facility] [place] Status: Signed Comments Summary Comments: Dual Chamber Pacemaker Evaluation: See attached scanned cobol programmer report. Interrogation shows 213 MS episodes, <1% total time and 3 VHR episodes since last check 09/28/17. Stored e-grams show atrial flutter with appropriate MS. VHR episodes show atrial fib with VHR up to 170 bpm. Left pectoral pocket/incision w/o s/s of infection or erosion. Pt offers no new cardiac complaints. Presenting rhythm shows AAI pacing @ 72 ppm. ELECTROLYTIC DE SCALER=<1%. Estimated battery life 4.7 yrs. Device and lead measurements remain stable. Decreased atrial amplitude with adequate safety margin. Counters cleared. Next f/u appt scheduled for in 3 mos. Device Device Date Interviewed: 01/10/18 Follow-up Location: in office Interview Reason: routine follow up Segmental Paving Supervisor: [employer] Name: Joshua TILLMAN Model: 2240 Serial #: [id number] Implant Date: 07/13/15 Year(s): 2 Implant Physician: Dr. Kurtis Bassett/ Patient Characteristics Atrial Indication: Paroxysmal atrial fibrillation, sick sinus syndrome Patient Substrate: Syncope Ejection fraction %: 45 to 49 (07/2015) By: Echo Underlying rhythm: Sinus bradycardia Pacemaker Dependent: No Device Characteristics Device: Dual Chamber Type: Pacemaker Remote Follow-Up: No Device Physical Exam Yes Incision well healed Leads Lead #1 Segmental Paving Supervisor Lead 1: [employer] Model Lead 1: Serial# Lead 1: [id number] Date Implanted Lead 1: 07/13/15 Position Lead 1: RA Lead #2 Segmental Paving Supervisor Lead 2: [employer] Model Lead 2: Serial# Lead 2: [id number] Date Implanted Lead 2: 07/13/15 Position Lead 2: RV Diagnostics Pacing % RA Pacin % RV Pacin Mode Switching Total # Episodes: 213 % Mode switched: 1 Arrhythmias Non-Sust Episodes: 3 Nelson Settings Nelson Settings Pacemaker Mode DDDR Output/Sensing V/PW (ms) 2.5/0.8 2.5/0.5 Sensitivity RA RV LV Comments: Billing Codes PM Device Codes: PM Dev Prog Eval, Dual Assessment AND Plan Problems 1. Presence of permanent cardiac pacemaker Z95.0 07/13/15, [employer] 2. 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 Acute on chronic diastolic (congestive) heart failure I50.33 4. PAF (paroxysmal atrial fibrillation) I48.0 recurrent 5. CAD (coronary artery disease) I25.10 6. Atrial fibrillation with RVR I48.91 01/15/18 0936 <Electronically signed by Daniela Mahan > Date Daniela Mahan 01/16/18 1245<Electronically signed by Golden Kruger MD> Cosigner Signature: Date (if applicable) Golden Kruger MD CC: RE-EVALUTION OT Observed: 01/02/2018 Status: F Source: [place] 2:56 PM [facility] REPOSITORY [facility] Occupational Therapy [facility] [place] [address] Fax REEVALUATION / MEDICARE RECERTIFICATION OCCUPATIONAL THERAPY MR#: [id number] Acct: [id number] Name: GLORIA PONCE Rep #: [id number] : 1940 77 From: Monica Barry OTR/L, CHT Referring DrJoselo: Robert Johnston DO Status: REG RCR Insurance: [employer] Eval Date: SELF PAY INSURANCE Robert Johnston DO, It has been my pleasure to treat GLORIA PONCE over the last 7 visits for left intraarticular fracture of left lower end left radius. Please see the progress note below for an update on the occupational therapy plan of care! Subjective: pt states she is doing well- states she is still having difficutly with opening jars and having enough strength to perform her BADSL and IADLs Objective/Function: pt demo a left java lead architect of 30#. ROM is WFL. left lat.pinch 4#. left tripod pinch 3#. pt has made gains with her left wrist ROM - but continues to be limited due to her strength- pt would benefit from further PRE to increase her functional strength for BADLS - recd 2x week for 3 weeks Plan Frequency: 2x /Week Duration: 3 Weeks Plan: add bilateral arm lifts- to increase left UB strength. Goals - Goals Goal:: pt will demo a increase in left java lead architect strength by 30# to increase her ind. with meal prep and BADLS. pt will demo a increase in left pinch streanght by 4# to increase pts ability to button and open jars/ bottles by d/c Goal:: pt will demo a increase in TROM of left wrist by 15 degrees to return pt to PLOF with BADLS and IADLS by d/c Goal:: pt will report pain 2/10 or less when performing BADLS and IADLS Goal:: pt will demo increase in FMS by manipulating fasteners at ind. level by d/c Anticipated Interventions Anticipated Interventions: A/AAROM/PROM, Strengthening, Triggerpoint Release, Modalities, Orthoses, Ergonomic Education Please do not hesitate to contact me at [phone] by phone or if you have questions or concerns regarding this new plan of care! Sincerely, ALEXANDRIA Lepe/TORO Roche <Electronically signed by Monica IBRAHIM/TORO Roche> 01/02/18 6253 CC: Robert Johnston DO; Nafisa Chawla DO Signed For Medicare only, by signing this I certify the plan of care. Physicians Signature Date ONCOLOGY VISIT REPORT Observed: 12/07/2017 Status: F Source: [place] 1:14 PM [facility] RE[facility] [place] [address] OFFICE VISIT Date of Service: 12/07/17 1137 MR#: [id number] Acct: [id number] Name: GLORIA PONCE Rep #: [id number] : 1940 From: Yasir Banegas MD Age/Sex: 77/F Location: [facility] Status: Signed Subjective - Date of Service Date of Service:: 12/07/17 - Chief Complaint F/u for anemia. - History of Present Illness Ms. Gloria Ponce is a pleasant 77 year old woman diagnosed with iron deficiency anemia, requiring iron infusions in January 2015. Subsequently iron profile was corrected and she is on observation. Comes in for follow up. - Past Medical/Social History Past Medical History Past Medical History: Anemia,Anxiety,Diabetes mellitus,Hyperlipidemia, Hypertension,Stroke Other Past Medical History: HYPERTHYROID Past Surgical History Surgical: Back,Hysterectomy,Knee arthroscopy Family History Paternal Past Medical History: Congestive heart failure Maternal Past Medical History: Unknown Maternal History of Cancer: Other Social History Smoking Status Never smoker Review of Systems Constitutional:: Denies: Fever, Sweats, Weight loss, Appetite change, Chills Cardiovascular:: Denies: Chest pain, Palpitations, Dyspnea on exertion, Orthopnea, PND, Shortness of breath Respiratory: Denies: Cough, Hemoptysis, Shortness of Breath, Wheezing Gastrointestinal:: Denies: Abdominal pain, Nausea, Vomiting, Diarrhea, Constipation, Hematochezia Genitourinary: Denies: Dysuria, Hematuria, 15, Flank pain Musculoskeletal:: Denies: Back pain, Myalgia, Arthralgia Skin: Denies: Rash, Skin Changes, Wounds Neurological:: Denies: Headache, Dizziness, Visual changes, Tinnitus, Hearing loss Psychiatric: Denies: Anxiety, Depression, Homicidal Ideations, Suicidal Ideations Vital Signs Height 5 ft 6 in Weight: 65.862 kg Weight in Pounds 145.2 lbs Pulse Ox 100 - Physical Exam General: Alert, Oriented x3, No apparent distress HEENT: Atraumatic, PERRLA, EOMI, Normocephalic Oropharynx:: Dry mucosa Neck:: Supple, Trachea midline. Negative for: JVD, bilateral Cardiac:: Regular rate, Regular rhythm, Normal S1, Normal S2. Negative for: Murmur Lungs: Clear to auscultation, Excusion symmetrical. Negative for: Rhonchi, Wheezes Extremities:: Negative for: Cyanosis, Edema Psychiatric:: Appropriate affect, Euthymic Laboratory Data: Laboratory Tests Assessment and Plan Iron deficiency anemia-resolved but iron is trending downwards. Plan is to continue observation. RTC 6 months with CBC, CMP/Iron studies. Medications: Prescriptions This Visit Medication Instructions Recorded Cholecalciferol (Vitamin D3) 5,000 unit PO DAILY 03/21/17 Primary Care Provider: Nafisa Chawla DO Referring Provider: - Problem List (1) Iron deficiency anemia Status: Resolved Qualifiers: Iron deficiency anemia type: unspecified iron deficiency Qualified Code(s): D50.9 - Iron deficiency anemia, unspecified Code Visit Office Visits / Consults: 93939 OV L3 Est 12/07/17 1314 <Electronically signed by Yasir Banegas MD> Date Yasir Banegas MD Cosigner Signature: Date (if applicable) CC: CBC W/DIFF, AUTOMATED Collected: 12/07/2017 Status: F Source: [place] 10:45 AM [facility] REPOSIT[facility] Order Comment: Reason for Laboratory Test ANEMIA TYPE CODE TESTS RESULT OUT OF RANGE REFERENCE UNITS LAB L100.1000 4.4-11.0 K/mm3 Normal WBC 7.2 LAB L100.1200 4.2-5.4 M/mm3 Low RBC 3.92 LAB L100.1300 12.0-15.0 g/dl Low HGB 11.7 LAB L100.1400 37-47 % Normal HCT 37.0 LAB L100.1500 81-99 fL Normal MCV 94.4 LAB L100.1600 27.0-32.0 pg Normal MCH 29.8 LAB L100.1700 32-36 g/gl Low MCHC 31.6 LAB L100.1810 11.6-14.6 % Normal RDW CV 13.9 LAB L100.1820 35.1-43.9 fl High RDW SD 48.0 LAB L100.1900 150-450 K/mm3 Normal PLT 274 LAB L100.2000 6.2-12.0 fl Normal MPV 10.3 LAB L100.2100 47-70 % High NEUT% 70.1 LAB L100.2200 19-41 % Normal LY% 21.9 LAB L100.2300 0-10 % Normal MONO% 6.8 LAB L100.2400 0-5 % Normal EO% 1.1 LAB L100.2500 0-1 % Normal BASO% 0.1 LAB L100.2550 0.0-0.9 % Normal IM GRAN % 0.000 Result Comment: IG% - Immature Granulocytes (promyelocytes, myelocytes and metamyelocytes) > 1% indicates that a LEFT SHIFT is Present. LAB L100.2620 2.0-7.7 X10 3/uL Normal Absolute Neut 5.0 LAB L100.2720 0.83-4.51 X10 3/ul Normal Absolute Lymph 1.57 Performed By: #### L100.0100 #### [facility] [address] [place] [place], [address] COMPREHENSIVE METABOLIC Collected: 12/07/2017 Status: F Source: [facility] 10:45 AM [facility] REPOSIT[facility] Order Comment: Reason for Laboratory Test ANEMIA TYPE CODE TESTS RESULT OUT OF RANGE REFERENCE UNITS LAB L501.0100 74-106 mg/dL High GLU 156 Result Comment: Fasting Glucose result greater than or equal to 126 mg/dL suggests DIABETES MELLITUS per A.D.A. criteria. Please note revised GLUCOSE reference range effective 2017. LAB L501.1000 7-18 mg/dL High BUN 33 LAB L501.1100 0.55-1.02 mg/dL High CREAT,SERUM 1.51 Result Comment: The validity of the calculated GFR AND GFRAA in patients over 70 years has not been determined. Clinical correlation is essential. LAB L501.1110 >60 mL/min Low EST GFR 36 Result Comment: Non- GFR Calc LAB L501.1115 >60 mL/min Low EST GFR - AA 43 Result Comment: GFR Calc LAB L501.1255 ml/min Normal Estimated CRCL 29.67 LAB L501.1300 10-20 RATIO High BUN/CRE 21.9 LAB L501.1500 6.4-8. g/dL Normal 2 T PROT 7.3 LAB L501.1800 3.2-5. g/dL Normal 0 ALB 3.7 LAB L501.1950 2.2-4. g/dL Normal 2 GLOB 3.6 LAB L501.2000 0.9-2. RATIO Normal 4 A/G 1.0 LAB L501.2200 8.5-10 mg/dL Normal .1 CA 9.2 LAB L501.4100 15-37 U/L Normal AST 20 LAB L501.4305 45-117 U/L Normal ALK P 117 LAB L501.4405 13-56 U/L Normal ALT 21 Result Comment: Please note revised ALT reference range effective 2017. LAB L501.4600 0.20-1.00 mg/dL Normal T BILI 0.30 LAB L501.5300 136-145 mmol/L Normal NA 143 LAB L501.5600 3.5-5.1 mmol/L Normal K 4.2 LAB L501.5900 98-107 mmol/L Normal CL 105 LAB L501.6100 21.0-32.0 mmol/L Normal CO2 28.0 LAB L501.6200 5-15 Normal GAP 10 Performed By: #### L500.4050, L503.6075, L503.6150, L503.6550 #### [facility] [address] [place], [place], [id number] IRON BINDING Collected: 12/07/2017 Status: F Source: [facility] 10:45 AM [facility] REPOSIT[facility] Order Comment: Reason for Laboratory Test ANEMIA TYPE CODE TESTS RESULT OUT OF RANGE REFERENCE UNITS LAB L503.6075 250-450 ug/dL Normal TIBC 430 Performed By: #### L500.4050, L503.6075, L503.6150, L503.6550 #### [facility] [address] [place], [place], [address] IRON Collected: 12/07/2017 Status: F Source: [place] 10:45 AM [facility] REPOSITORY Order Comment: Reason for Laboratory Test ANEMIA TYPE CODE TESTS RESULT OUT OF RANGE REFERENCE UNITS LAB L503.6150 50-170 ug/dL Low IRON 42 Performed By: #### L500.4050, L503.6075, L503.6150, L503.6550 #### [facility] [address] [place] [place], [address] FERRITIN Collected: 12/07/2017 Status: F Source: [place] 10:45 AM [facility] REPOSIT[facility] Order Comment: Reason for Laboratory Test ANEMIA TYPE CODE TESTS RESULT OUT OF RANGE REFERENCE UNITS LAB L503.6550 8-252 ng/mL Normal FERRITIN 34 Performed By: #### L500.4050, L503.6075, L503.6150, L503.6550 #### [facility] [address] [place], [address] INITAL EVALUATION (1) Observed: 11/23/2017 Status: F Source: [place] - [place] 9:22 AM [facility] REPOSITORY [facility] [address] [place], [place] [address] Fax REHABILITATION SERVICES INITIAL EVALUATION MR#: [id number] Acct: [id number] Name: GLORIA PONCE Rep #: [id number] : 1940 77 From: Kvng Jerez DPT, OCS, CSCS Referring Dr.: Robert Johnston DO Status: REG RCR Insurance: [employer] SELF PAY INSURANCE Patient's Visit Information GLORIA PONCE is a 77 year old F referred to Physical Therapy by DO AMA Mckeon with a diagnosis of Abnormal balance. Date of Evaluation: 11/22/17 Physical Therapist: Kvng Jerez DPT, OC - Visit Plan Frequency: 3x /Week Duration: 4 Weeks Plan: Neurocom balance assessment per order then 3x/week for 4 weeks for : VOR exercises with walking. Vestibualr balance challenges and ex. Teach I LE strength program for I when done on machines for Silver Sneakers. - Subjective Subjective: In OT for L wrist fracture. Fell running into sidewalk raised up and snow covered and fell forward. Went to ER and this was nearly two months ago. Sent home and hand was swollen next day and they looked at x ray again and sent her home. Went to family doctor and diagnosed with broken wrist. Fella gain shortly later. Since then has brace on and or cast for last 4 weeks. Now back in brace for at least 4 weeks. Feels like balance is off all the time and has been for a while. Has fallen many times this year. Will not use walker or cane. Wants to get balance better. Live with niece who is an RN. Steps to basement if goes down there and has a rail. No falls on steps. So spinning. Numbness in L LE possibly from back as she had surgery 10 years ago. Gets up from chair and may topple over. Spends day doing nothing and shopping. Got dog and walks him, gets pulled by dog falling at least once. - Objective Walks I on firm flat surface, steps reciprocal but needs rail for safety. Transfers I to and for sit and supine. UE AAROM WFL, LE AROM WFL. reflexes patella L 1/3 adn R 2/3, achilles 2/3. Sensation diminished in L lateral LE slightly to light touch vs R. Strength is 4-/5 in LE without myotomal abnormalities. coordination to reciprocal tap and heel to hogan appears normal. VOR walking is challenging balance and eyes on target. - Balance Scores Functional Gait Assessment Score: 20 % Disability: 33.3400 CATSIB Score (Max score 120 seconds): 92 - Goals Goal 1:: FGA to diminish fall risk. Goal Time Frame: 4-6 Weeks Goal 2:: VOR ambulation without unsteadiness. Goal Time Frame: 4-6 Weeks Goal 3:: I approp HEP to minimize fall risk. - Rehabilitation Potential Physical Therapy Diagnosis: Abnormal balance Rehabilitation Potential: Good - Anticipated Interventions Patient/Client Instruction: Educate patient on: Condition, Plan of Care For the Purpose of:: To improve gait and locomotor functions, To improve safety Therapeutic Exercise to Include: Strength training, Balance training Comment: VOR For the Purpose of:: To improve muscle performance and motor function, To improve gait and locomotor functions, To improve safety with gait, To improve safety Thank you for the opportunity to evaluate your patient. For Medicare and Medicare HMO plans, please review the plan of care and approve it. It will need to be FAXED BACK to us at [phone] for Medicare purposes. Please let me know if there are questions or concerns regarding this plan of care. Physician Signature: Date: <Electronically signed by Kvng Jerez DPT, OCS, CSCS> 11/23/17 0922 CC: Robert Johnston DO; Nafisa Chawla DO EBG Signed For Medicare only, by signing this I certify the plan of care. Physicians Signature Date OT GENERAL EVALUATION Observed: 11/21/2017 Status: F Source: [place] 4:13 PM [facility] REPOSITORY [facility] [address] [place] [address]. [address] [place], [place] [address] Fax REHABILITATION SERVICES INITIAL EVALUATION MR#: [id number] Acct: [id number] Name: GLORIA PONCE Rep #: [id number] : 1940 77 From: Monica IBRAHIM/TORO Roche Referring DrJoselo: Robert Johnston DO Status: REG RCR Insurance: [employer] Eval Date: SELF PAY INSURANCE Patient's Visit Information GLORIA PONCE is a 77 year old F, referred to Occupational Therapy by Robert Johnston DO,, with a diagnosis of left intraarticular fracture of left lower end left radius. Date of Evaluation: 11/20/17 Occupational Therapist: ALEXANDRIA Lepe/Melchor, CHT - Subjective Subjective: Pt states she was walking her dog and she had a fall. Pt went to the ER that day and was told no fx. pt went to ER the next day- and told again no fx- she states did see Dr. Pierce and he placed her in a splint and said she had a fx.pt states she is limited with all BADLS and IADLS at this time due to her limited left wrist ROM and pain. pt want to return to PLOF - Pain left wrist 8 Pain Intensity Range: 5, 9 - Objective Objective/Observation: pt arrives with othosis on left wrist - ROM Wrist: right RD/UD 15/[address]/UD 10/15 right 50/50 left 30/0 ROM Comments: left thumb pain with ext. - Strength Quality Assurance Group Leader: right 45# left NT Lateral Pinch: right 4# left NT Tripod Pinch: right 8# left NT - Edema Wrist: right 16cm left 17.5 cm - Sensation Sensation Comments: denies - Hand/Wrist Evaluation Total Score of Pain AND Functional Sections: 82 - Goals Goal:: pt will demo a increase in left java lead architect strength by 30# to increase her ind. with meal prep and BADLS. pt will demo a increase in left pinch streanght by 4# to increase pts ability to button and open jars/ bottles by d/c Goal:: pt will demo a increase in TROM of left wrist by 15 degrees to return pt to PLOF with BADLS and IADLS by d/c Goal:: pt will report pain 2/10 or less when performing BADLS and IADLS Goal:: pt will demo increase in FMS by manipulating fasteners at ind. level by d/c - Rehabilitation General Assessment: pt demo with a decrease in left wrist ROM and functoinal strength- pt reports pain 8/10 at rest without movement - the limitations are increasing the need of assist with BADLS and IADLS at this time. pt would benefit from skilled OT services 2-3x week for 6 weeks to return pt to a functional ability to peform BADLS Rehabilitation Potential: Good - Anticipated Interventions Anticipated Interventions: A/AAROM/PROM, Strengthening, Triggerpoint Release, Modalities, Orthoses, Ergonomic Education - Visit Plan Frequency: 2-3x /Week Duration: 2 Months TEXT: Thank you for the opportunity to evaluate your patient. For Medicare and Medicare HMO plans, please review the plan of care and approve it. It will need to be FAXED BACK to us at [phone] for Medicare purposes. Please let me know if there are questions or concerns regarding this plan of care. Physician Signature: Date: <Electronically signed by Monica HENNING CHT> 11/21/17 1613 CC: Robert Johnston DO; Nafisa Chawla DO MK Signed For Medicare only, by signing this I certify the plan of care. Physicians Signature Date EMERGENCY DEPARTMENT Observed: 10/14/2017 Status: F Source: [place] SUMMARY 1:43 PM [facility] REPOSITORY [facility] Medical Records Department [address] [place] [address] Emergency Department Summary 10/14/17 1337 MR#: [id number] Acct: [id number] Name: GLORIA PONCE Rep #: [id number] : 1940 77 From: Mikey Renner MD PCP: Nafisa Chawla DO Status: REG ER ADDENDUM by Mikey Renner MD on 10/14/17 at 1343 When I went into the room to inform patient of x-ray results and disposition she informed that she injured her left knee. Examination left knee reveals an abrasion. Immunizations up-to-date. The wound be cleansed and dressed by the nurse. Date Mikey Renner MD cc: Nafisa Chawla DO * Signed - ER Visit Summary Date of Service: 10/14/17 Chief Complaint: The left forearm status post fall History of Present Illness: The patient is a 77 F who is right- hand dominant and was seen last week 2 for injury to left wrist. X-rays at that time were negative. She now presents because of left forearm pain. Pain is localized to the mid third of the radius. She denies any shoulder pain. She denies elbow pain. She reports pain with movement mid forearm. She denies any paresthesia, anesthesia or motor weakness. Physical Examination: Woman who appears uncomfortable. Vital signs remarkable blood pressure 148/86. There is pain palpation of the mid third of the left radius. There is no pain the patient over the olecranon process, lateral medial epicondyle or radial head. There is soft tissue swelling with discoloration and pain to palpation over the dorsal surface of the distal radius and ulna. There is no pain on the volar surface. Median, radial, and ulnar nerve function are intact. Radial pulses palpable. Test Results: View x-ray of the left forearm was obtained and there is no evidence of fracture. Emergency Department Course and Treatment: Ice elevation Tylenol for discomfort and x-ray to evaluate for fracture Treatment Plan: Ice elevation ice for discomfort Disposition: Discharge to home Impression: Contusion left forearm status post fall initial encounter This note was generated with Social Genius dictation software. It may contain incorrect words, spelling, and punctuation that were not noted in review of the chart prior to signing ED Disposition - Plan for ED Patient: Disposition: Home or Assisted Living Chief Complaint: Upper Extremity Injury Instructions: ED Contusion Upper Ext Referrals: Nafisa Chawla DO [Primary Care Provider] - 1 Week if not improving What to do if you have Problems For any increased pain, shortness of breath, bleeding, nausea or vomiting, chest pain, or any unexpected problems, contact your Primary Care Provider. Call [facility] ([phone]) or report to the closest Emergency Room. Call 911 if necessary. 10/14/17 1340 <Electronically signed by Mikey Renner MD> Date Mikey Renner MD Cosigner Signature (If Indicated): Date CC: Nafisa Chawla DO FOREARM 2 VIEWS Observed: 10/14/2017 Status: F Source: [place] 12:46 PM [facility] REPOSITORY [facility] Imaging Services [address] [place] [address] Forearm 2 Views MR#: [id number] Acct: [id number] Name: GLORIA PONCE Rep #: [id number] : 1940 F 77 From: Félix Wills MD PCP: Nafisa Chawla DO Status: DEP ER Study: Forearm 2 Views Date of Exam: 10/14/17 Exam# [id number] Ordering Dr: Mikey Renner MD STUDY: X-RAY - LEFT RADIUS AND ULNA REASON FOR EXAM: Female, 77 years old. Trauma TECHNIQUE: 2 view(s) of the forearm. COMPARISON: None. FINDINGS: There is no evidence of fracture or dislocation. There are no significant degenerative changes. There are no radiodense foreign bodies. RAD/Forearm 2 Views IMPRESSION: No fracture or dislocation. Electronically Signed: Félix Wills, at 14:24 EST Tel , Service support , CC: Nafisa Chawla DO; Mikey Renner MD Recyclable Materials Collector: Signed EMERGENCY DEPARTMENT Observed: 10/10/2017 Status: F Source: [place] SUMMARY 2:19 PM [facility] REPOSITORY [facility] Medical Records Department [address] [place] [address] Emergency Department Summary 10/10/17 1414 MR#: [id number] Acct: [id number] Name: GLORIA PONCE Rep #: [id number] : 1940 77 From: Mikey Renner MD PCP: Nafisa Chawla DO Status: PRE ER - ER Visit Summary Date of Service: 10/10/17 Chief Complaint: left wrist pain is worse and must have missed something yesterday History of Present Illness: The patient is a 77 F who was seen by me yesterday. She had x-rays of the wrist that were interpreted by me as negative. Prior to seeing patient the x-rays were read examined and the radiologist interpretation is negative as well. She complains of increased pain. She states she has been elevating her wrist and applying ice. She states the Dallas she was prescribed is not helping at all. She denies any paresthesia, anesthesia or motor weakness. She is concerned because the swelling has gotten worse. Physical Examination: Has significant swelling dorsal surface of the left breast and distal one third of the left forearm on the dorsal surface. Axillary, median, radial and ulnar function intact. There is no pain the patient of the lateral medial epicondyle. No pain the patient with olecranon process. There is no pain the patient with a radial head. Minimal movement of her fingers or hand causes her exquisite pain. Test Results: None Emergency Department Course and Treatment: As informed I did look at the x-rays again and looked at the interventional radiologist. He agreed with my initial interpretation. Of note patient has an Abhi wrap on and the Abhi wrap was applied tightly. She was informed the reason that her swelling has gotten worse is the fact that she is on Xarelto and she is more likely to bleed. She was instructed to keep her wrist elevated. She was told elevation means her wrist above her nose and applying ice 6-8 times a day. She insists that she has been compliant. Of note her fingers are all swollen and they were not swollen yesterday. Treatment Plan: Keep wrist elevated, ice and follow-up with PCP if no improvement in 3-5 days Disposition: Discharged to home Impression: Left wrist pain status post fall with expanding subcu hematoma secondary to Xarelto This note was generated with Social Genius dictation software. It may contain incorrect words, spelling, and punctuation that were not noted in review of the chart prior to signing ED Disposition - Plan for ED Patient: Disposition: Home or Assisted Living Chief Complaint: Upper Extremity Injury Instructions: ED Hematoma, ED Contusion Upper Ext Referrals: Fast,Nafisa, DO [Primary Care Provider] - 3-5 Days if not improving What to do if you have Problems For any increased pain, shortness of breath, bleeding, nausea or vomiting, chest pain, or any unexpected problems, contact your Primary Care Provider. Call [facility] ([phone]) or report to the closest Emergency Room. Call 911 if necessary. 10/10/17 0621 <Electronically signed by Mikey Renner MD> Date Mikey Renner MD Cosigner Signature (If Indicated): Date CC: Nafisa Chawla DO EMERGENCY DEPARTMENT Observed: 10/10/2017 Status: F Source: [place] SUMMARY 12:25 AM [facility] REPOSITORY [facility] Medical Records Department [address] [place] [address] Emergency Department Summary 10/09/17 1744 MR#: [id number] Acct: [id number] Name: GLORIA PONCE Rep #: [id number] : 1940 77 From: Nigel Brown MD PCP: Nafisa Chawla DO Status: DEP ER - ER Visit Summary Date of Service: 10/09/17 Addendum: The patient went to [facility] to get her prescription for Dallas which had been sent electronically. They told her that they did not have a record of this. The patient had a paper prescription given so that she could get this filled. This note was generated with Social Genius dictation software. It may contain incorrect words, spelling, and punctuation that were not noted in review of the chart prior to signing ED Disposition - Plan for ED Patient: Disposition: Home or Assisted Living Chief Complaint: Upper Extremity Injury Prescriptions: Hydrocodone Bitart/Apap 5-325 [Dallas 5/325] 1 - 2 tab PO Q4H PRN PRN 3 Days #10 tab PRN Reason: Pain Hydrocodone Bitart/Apap 5-325 [Dallas 5MG-325MG] 1 tablet PO Q6H PRN PRN 3 Days #10 tablet PRN Reason: Pain Referrals: Nafisa Chawla DO [Primary Care Provider] - 3-5 Days if not improving Additional Instructions: Elevate wrist and ice 20-30 minutes at a time 6 day times a day. What to do if you have Problems For any increased pain, shortness of breath, bleeding, nausea or vomiting, chest pain, or any unexpected problems, contact your Primary Care Provider. Call [facility] ([phone]) or report to the closest Emergency Room. Call 911 if necessary. 10/10/17 0025 <Electronically signed by Nigel Brown MD> Date Nigel Brown MD Cosigner Signature (If Indicated): Date CC: Nafisa Chawla DO EMERGENCY DEPARTMENT Observed: 10/09/2017 Status: F Source: [place] SUMMARY 3:00 PM [facility] REPOSITORY [facility] Medical Records Department [address] [place] [address] Emergency Department Summary 10/09/17 1456 MR#: [id number] Acct: [id number] Name: GLORIA PONCE Shaq Rep #: [id number] : 1940 77 From: Mikey Renner MD PCP: Nafisa Chawla DO Status: REG ER - ER Visit Summary Date of Service: 10/09/17 Chief Complaint: [] History of Present Illness: The patient is a 77 F [] Physical Examination: [] Test Results: [] Emergency Department Course and Treatment: [] Treatment Plan: [] Disposition: [] Impression: [] This note was generated with Social Genius dictation software. It may contain incorrect words, spelling, and punctuation that were not noted in review of the chart prior to signing ED Disposition - Plan for ED Patient: Disposition: Home or Assisted Living Chief Complaint: Upper Extremity Injury Instructions: ED Contusion Upper Ext Prescriptions: Hydrocodone Bitart/Apap 5-325 [Dallas 5MG-325MG] 1 tablet PO Q6H PRN PRN 3 Days #10 tablet PRN Reason: Pain Referrals: Nafisa Chawla DO [Primary Care Provider] - 3-5 Days if not improving Additional Instructions: Elevate wrist and ice 20-30 minutes at a time 6 day times a day. What to do if you have Problems For any increased pain, shortness of breath, bleeding, nausea or vomiting, chest pain, or any unexpected problems, contact your Primary Care Provider. Call [facility] ([phone]) or report to the closest Emergency Room. Call 911 if necessary. 10/09/17 1500 <Electronically signed by Mikey Renner MD> Date Mikey Renner MD Cosigner Signature (If Indicated): Date CC: Nafisa Chawla DO EMERGENCY DEPARTMENT Observed: 10/09/2017 Status: F Source: [place] SUMMARY 2:55 PM [facility] REPOSITORY [facility] Medical Records Department [address] [place] [address] Emergency Department Summary 10/09/17 1451 MR#: [id number] Acct: [id number] Name: GLORIA PONCE Rep #: [id number] : 1940 77 From: Mikey Renner MD PCP: Nafisa Chawla DO Status: REG ER - ER Visit Summary Date of Service: 10/09/17 Chief Complaint: Pain and swelling left wrist status post fall this past Monday History of Present Illness: The patient is a 77 F is right- handed. She presents with injury to her left wrist. She fell outstretched extremity while walking the dog on Monday. She reports pain with movement and palpation. She has no history of prior injury. He denies paresthesia, anesthesia or motor weakness. Physical Examination: Vital signs remarkable elevated blood pressure 153/88. Median, radial and ulnar function intact. There is no subungual hematomas noted of the digits. Extensor and flexor is intact. Capillary refill is normal in all digits. There is pain palpation over the distal radius with soft tissue swelling noted. There is no pain the patient over the anatomic snuffbox or axial loading of the thumb. Test Results: View x-ray of the wrist was obtained which reveals arthritic changes with no obvious fracture. Furthermore, there is no volar fat pad noted. There is no widening of the scapholunate space either. Emergency Department Course and Treatment: X-ray was obtained per nurse protocol Treatment Plan: Elevation and ice. Disposition: Discharged home Impression: Contusion left wrist with hematoma status post fall initial encounter This note was generated with Social Genius dictation software. It may contain incorrect words, spelling, and punctuation that were not noted in review of the chart prior to signing ED Disposition - Plan for ED Patient: Disposition: Home or Assisted Living Chief Complaint: Upper Extremity Injury Instructions: ED Contusion Upper Ext Referrals: Nafisa Chawla DO [Primary Care Provider] - 3-5 Days if not improving Additional Instructions: Elevate wrist and ice 20-30 minutes at a time 6 day times a day. What to do if you have Problems For any increased pain, shortness of breath, bleeding, nausea or vomiting, chest pain, or any unexpected problems, contact your Primary Care Provider. Call [facility] ([phone]) or report to the closest Emergency Room. Call 911 if necessary. 10/09/17 1455 <Electronically signed by Mikey Renner MD> Date Mikey Renner MD Cosigner Signature (If Indicated): Date CC: Nafisa Chawla DO WRIST MIN 3 VIEWS Observed: 10/09/2017 Status: F Source: [place] 2:03 PM [facility] REPOSITORY [facility] Imaging Services [address] [place] [address] Wrist min 3 Views MR#: [id number] Acct: [id number] Name: GLORIA PONCE Rep #: [id number] : 1940 F 77 From: Steve Ramos MD PCP: Nafisa Chawla DO Status: PRE ER Study: Wrist min 3 Views Date of Exam: 10/09/17 Exam# [id number] Ordering Dr: Mikey Renner MD STUDY: X-RAY - LEFT WRIST REASON FOR EXAM: Female, 77 years old. Pain following a fall. History of old fracture of the distal radius. TECHNIQUE: 3 view(s) of the wrist were obtained. COMPARISON: None. FINDINGS: Normal visualized distal radius and ulna. Normal radiocarpal articulation. Normal distal radioulnar articulation. Normal carpal bones. Normal carpal articulations. Normal carpometacarpal articulation of the thumb. Normal second through fifth carpometacarpal articulations. Normal visualized metacarpal bones. Calcification of the triangular fibrocartilage. RAD/Wrist min 3 Views IMPRESSION: No acute abnormality is seen. Electronically Signed: Steve Ramos MD at 14:28 EST Tel [phone], Service support , CC: Nafisa Chawla DO; Mikey Renner MD Recyclable Materials Collector: Signed OFFICE VISIT REPORT Observed: 10/02/2017 Status: F Source: [place] 7:32 AM [facility] Services [facility] [place] [address] OFFICE VISIT Date of Service: 09/29/17 MR#: [id number] Acct: [id number] Patient: GLORIA PONCE Rep #: [id number] : 1940 Provider: Daniela Mahan Age/Sex: 77/F [place] [facility] [place]: Signed Comments Summary Comments: Dual Chamber Pacemaker Evaluation: Interrogation shows 17 MS episodes, <1% total time and 1 NSVT episode since last check 06/26/17. Stored e-grams available for review show atrial fib with RVR (150 to 160 bpm). No true VT/VF noted. Pt on Xarelto. Left pectoral pocket/incision w/o s/s of infection or erosion. Pt offers no cardiac complaints. Presenting rhythm shows AAI pacing @ 60 ppm. ELECTROLYTIC DE SCALER=<1%, AP=92%. Battery longevity approx 4.7 yrs. Lead impedances, sensing and paces/sense thresholds remain stable. No parameter changes made. Counters cleared. Next f/u appt scheduled for in 3 mos. Device Device Date Interviewed: 09/29/17 Follow-up Location: in office Interview Reason: routine follow up Segmental Paving Supervisor: [employer] Name: Joshua TILLMAN Model: 2240 Serial #: [id number] Implant Date: 07/13/15 Year(s): 2 Implant Physician: Dr. Kurtis Bassett/ Patient Characteristics Atrial Indication: Paroxysmal atrial fibrillation, sick sinus syndrome Patient Substrate: Syncope Ejection fraction %: 45 to 49 (07/2015) By: Echo Underlying rhythm: Sinus bradycardia Pacemaker Dependent: No Device Characteristics Device: Dual Chamber Type: Pacemaker Remote Follow-Up: No Device Physical Exam Yes Incision well healed Leads Lead #1 Segmental Paving Supervisor Lead 1: [employer] Model Lead 1: Serial# Lead 1: [id number] Date Implanted Lead 1: 07/13/15 Position Lead 1: RA Lead #2 Segmental Paving Supervisor Lead 2: [employer] Model Lead 2: 8/52 Serial# Lead 2: [id number] Date Implanted Lead 2: 07/13/15 Position Lead 2: RV Diagnostics Pacing % RA Pacin % RV Pacin Mode Switching Total # Episodes: 17 % Mode switched: 1 Arrhythmias Non-Sust Episodes: 1 Measurements Battery Voltage (V): 2.98 Magnet Rate (bmp): 100 Battery %: 95 Predicted Remaining Longevity (months or years): 4.7 years RA Measurements Signal Amplitude (mV): 0.9 Impedance (Ohms): 350 Threshold Voltage: 1.0 @ PW(ms): 0.8 RV Measurements Signal Amplitude (mV): 11.8 Impedance (Ohms): 440 Threshold Voltage: 1.0 @ PW(ms): 0.5 Nelson Settings Nelson Settings Pacemaker Mode DDDR Output/Sensing V/PW (ms) 3.5/0.8 2.5/0.5 Sensitivity RA RV LV Comments: Billing Codes PM Device Codes: PM Dev Prog Eval, Dual Assessment AND Plan Problems 1. PAF (paroxysmal atrial fibrillation) I48.0 recurrent 2. Diastolic dysfunction I51.9 3. Atrial fibrillation with RVR I48.91 4. Syncope and collapse R55 5. Presence of permanent cardiac pacemaker Z95.0 10/01/171956 <Electronically signed by Daniela Mahan > Date Daniela Mahan 10/02/17 0732<Electronically signed by Golden Kruger MD> Cosigner Signature: Date (if applicable) Golden Kruger MD CC: ALLERGIES ALLERGIES DATE TYPE / CODE NAME / CODE REACTION SEVERITY SOURCE 09/24/2018 Drug amlodipine Itching [place] Allergy/416 besylate/T2416201 [facility] 551172([address]) Repository 09/24/2018 Drug hydralazine/F0060 Itching [place] Allergy/416 55651(RXNORM) [facility] 755097([facility] ED CT) Repository ENCOUNTERS ENCOUNTERS ADMIT/DISCHARGE ACCOUNT ADMITTING ENCOUNTER LOCATION SOURCE NUMBER CLASS 09/26/2018 1339 Ambulatory Building:[facility] OHIP Practices Repository 09/24/2018/ [id number] Emergency [place] 9 0 [facility] ing:ED Repository 09/21/2018 [id number] Ambulatory [place] 4 [facility] ing:OPBI Repository 09/16/2018/ [id number] Emergency [place] 9 3 [facility] ing:ED Repository 08/09/2018 [id number] Ambulatory BMSBuilding:W [place] 4 [facility] Repository 08/09/2018 [id number] Ambulatory [place] 8 [facility] ing:CVS Repository 08/08/2018 [id number] Ambulatory [place] Henniker 2 [facility] ing:OPBD Repository 07/25/2018 [id number] Ambulatory [place]enn[place] 7 [facility] ing:LABSPEC Repository 07/17/2018 [id number] Ambulatory [place] 4 [facility] ing:HPRAD Repository 05/16/2018 [id number] Ambulatory [place] 1 [facility] ing:CVS Repository 05/16/2018 [id number] Ambulatory BMSBuilding:W [place] 9 [facility] Repository 04/17/2018/ [id number] Ambulatory BMSBuilding:B [place] 8 4 [facility] Repository 04/03/2018/ [id number] Ambulatory BMSBuilding:B [place] 8 4 [facility] Repository 01/16/2018/ [id number] Ambulatory [place] 8 4 [facility] ing:PT Repository 01/10/2018/ [id number] Ambulatory BMSBuilding:B [place] 8 0 [facility] Repository 12/07/2017 [id number] Ambulatory [place]enn[place] 9 [facility] ing:OMD Repository 12/07/2017 [id number] Ambulatory BMSBuilding:B [place] 8 MS.[facility] Repository 11/21/2017 [id number] Ambulatory BMSBuilding:B [place] 9 [facility] Repository 11/14/2017 [id number] Ambulatory [place] Henniker 6 [facility] ing:PSN Repository 10/14/2017/ [id number] Emergency [place]enn[place] 8 9 [facility] ing:ED Repository 10/10/2017/ [id number] Emergency Ped[place]io Henniker 8 3 [facility] ing:ED Repository 10/09/2017/ [id number] Emergency [place] 8 9 [facility] ing:ED Repository 09/29/2017/ [id number] Ambulatory BMSBuilding:B [place] 8 0 [facility] Repository FUNCTIONAL STATUS FUNCTIONAL STATUS No Functional Status Records FoundEQUIPMENT EQUIPMENT No Equipment Records FoundPAYERS PAYERS ENCOUNTER GUARANTOR PAYER SUBSCRIBER SOURCE 09/26/2018 GLORIA New OHRADHA Practices GRASSMANDOB: Insurance:[place]/Medi GRASSMANDOB: Repository [id number] care Adv planPolicy [id number] Deaver Number: JRI 3 [address] [facility] [place] [id number] Community Hospitalruddy[place], [place] [address]Gra: (330) Date:7967-93-82Zdev [address]Mju: Name:[phone] (HP) (HP)Tel: [phone]) [phone], [place] [phone] ( [id number]: 09/26/2018 Secondary GLORIA D OHIP Practices Insurance:United GRASSMANDOB: Repository [facility] [id number] Number: 3 Deaver [id number] [place], [place] Date:2004-08-04 [address]Afa: [id number] ~(3 Name:[address] (HP) 723119Ljwhhdk, [place] [address]YM: 09/26/2018 Tertiary GLORIA D OHIP Practices Insurance:ReferralsPo GRASSMANDOB: Repository licy Number: [id number] Effective Date: - 6621-05-47Vaoq Name:Tanish[place] [address]Xou: ~(3 30 (HP) 09/26/2018 Tertiary GLORIA D OHIP Practices Insurance:MedicarePol GRASSMANDOB: Repository icy Number: [id number] 3 Date:2006-03-04 - [place] 3760-54-81Oarq [address]Ivb: Name:BARKER PEELER Box ~(3 794741Swdaccyr, [place] 30 (HP) [address]OT: 09/26/2018 Tertiary GLORIA D OHIP Practices Insurance:PrimetimePo GRASSMANDOB: Repository licy Number: [id number] 3 Date:2006-09-04 - [place] 9403-31-93Thct [address]Byp: Name:FPO [address] ~([address] [address], [place] 30 (HP) [address]DW: 09/26/2018 Tertiary GLORIA D OHIP Practices Insurance:SECURE GRASSMANDOB: Repository CARE/MCARE ADV [id number] PLANPolicy Number: 3 [address] [id number] DrCommunity Hospitalstneftaly, [place] Date:2008-09-04 [address]Nnx: [id number] ~(3 Name:[id number] (HP) ELIER Dee [address]JT: 09/26/2018 Tertiary GLORIA D OHIP Practices Insurance:First GRASSMANDOB: Repository Federal [employer] [id number] [address] [employer]Policy 3 Deaver Number: Effective [place], [place] Date: [address]Pzs: [id number] ~(3 Name:[id number] [address] (HP) [address], [place] [address]DE: 09/26/2018 Tertiary GLORIA D OHIP Practices Insurance:Summa GRASSMANDOB: Repository CarePolicy Number: [id number] 3 [address]aver Date:2015-08-04 - [place] 4637-44-55Kufi [address]Pgh: Name:FPO [address] ~([address] [address], [place] 30 (HP) [address]CC: 09/26/2018 Tertiary GLORIA D OHIP Practices Insurance:Medical GRASSMANDOB: Repository [facility] [id number] AdvPolicy Number: 3 [address]aver [id number] [place], [place] Date:2016-09-04 [address]Tdw: [id number] ~(3 Name:BARKER PEELER [address] (HP) [address], [place] [id number]: 09/24/2018 GLORIA D Primary GLORIA D [place] [id number] Insurance:HUMANA GRASSMANDOB: Community [place] [employer] PPOPolicy [id number], [place] Number: Repository [address]Bpd: 330 [id number] [phone] (HP) Date:3899-22-64KQ [address] [address]MP: 09/24/2018 Secondary NOT GIVENUNK [place] Insurance:SELF PAY [facility] Number: Effective Repository Date:2018-09-24 09/21/2018 GLORIA D Primary GLORIA D [place] [id number] Insurance:HUMANA GRASSMANDOB: Community [place] [employer] PPOPolicy [id number], [place] Number: Repository [address]Tva: 330 [id number] [phone] (HP) Date:7552-82-95IO [address] [address]EA: 09/21/2018 Secondary NOT GIVENUNK [place] Insurance:SELF PAY [facility] Number: Effective Repository Date:2018-01-02 09/16/2018 GLORIA D Primary GLORIA D [place]enn[place] [id number] Insurance:HUMANA GRASSMANDOB: Community [place] [employer] PPOPolicy [id number], [place] Number: Repository [address]Zqf: 330 [id number] [phone] (HP) Date:0770-93-84NA [address] [address]TF: 09/16/2018 Secondary NOT GIVENUNK [place] Insurance:SELF PAY [facility] Number: Effective Repository Date:2018-09-16 08/09/2018 GLORIA D Primary GLORIA D [place] [id number] Insurance:ANTHEM GRASSMANDOB: Community [place] [employer] SENIOR [id number] Medical CenterAPoly Number: Repository [address]Cmt: 330 [id number] [phone] (HP) Date:9001-46-35MZ [address]IZMCWBI, [place] [address]FS: 08/09/2018 Secondary NOT GIVENUNK [place] Insurance:SELF PAY [facility] Number: Effective Repository Date:2018-08-09 08/09/2018 GLORIA D Primary GLORIA D [place] [id number] Insurance:ANTHEM GRASSMANDOB: Community [place] [employer] [id number], [place] ADVANTAPolicy Number: Repository [address]Qgg: 330 [id number] [phone] () Date:7097-97-97XF [address] [place] [address]HQ: 08/09/2018 Secondary NOT GIVENUNK [place] Insurance:SELF PAY [facility] Number: Effective Repository Date:2018-08-03 08/08/2018 GLORIA D Primary GLORIA D [place] [id number] Insurance:ANTHEM GRASSMANDOB: Community [place] [employer] [id number], [place] ADVANTAPolicy Number: Repository [address]Gph: 330 [id number] [phone] () Date:0832-56-44JQ [address] [place] [address]ZX: 08/08/2018 Secondary NOT GIVENUNK [place] Insurance:SELF PAY [facility] Number: Effective Repository Date:2018-08-03 07/25/2018 GLORIA D Primary GLORIA D Henniker [id number] Insurance:ANTHEM GRASSMANDOB: Community [place] [employer] [id number], [place] ADVANTAPolicy Number: Repository [address]Ewi: 330 [id number] [phone] () Date:8225-39-08[id number] [place] [address]90[address]IQ: 07/25/2018 Secondary NOT GIVENUNK Henniker Insurance:SELF PAY [facility] Number: Effective Repository Date:2018-07-25 07/17/2018 GLORIA D Primary GLORIA D Pedrito [id number] Insurance:ANTHEM GRASSMANDOB: Community [facility] [id number] Number: Repository [id number]: (330) [id number] [phone]) Date:6402-10-18[address]FCODQUM [place] [address]JZ: 07/17/2018 Secondary NOT GIVENUNK Henniker Insurance:SELF PAY [facility] Number: Effective Repository Date:2018-07-17 05/16/2018 GLORIA D Primary GLORIA D Pedrito [id number] Insurance:ANTHEM GRASSMANDOB: Community [facility] [id number] Number: Repository [id number]: (330 [id number] [phone]) Date:0060-07-24OH [address] [place] [address] [place] [address]HN: 05/16/2018 Secondary NOT GIVENUNK Pedrito Insurance:SELF PAY [facility] Number: Effective Repository Date:2018-03-09 05/16/2018 GLORIA D Primary GLORIA D Pedrito [id number] Insurance:ANTHEM GRASSMANDOB: Community [facility] [id number] Number: Repository [id number]: (330 [id number] [phone]) Date:3529-65-32YJ [address] [place] [address] [place] 86[address]OY: 05/16/2018 Secondary NOT GIVENUNK Henniker Insurance:SELF PAY [facility] Number: Effective Repository Date:2018-05-16 04/17/2018 GLORIA D Primary GLORIA D Pedrito [id number] Insurance:ANTHEM GRASSMANDOB: Community [facility] [id number] Number: Repository [id number]: (330 [id number] [phone]) Date:9487-82-25LA [address]VVMRUQD, [place] [address]KI: 04/17/2018 Secondary NOT GIVENUNK Henniker Insurance:SELF PAY [facility] Number: Effective Repository Date:2018-04-17 04/03/2018 GLORIA D Primary GLORIA D Pedrito [id number] Insurance:ANTHEM GRASSMANDOB: Community [facility] [id number] Number: Repository [id number]: (330) [id number] [phone] (HP) Date:6312-54-92CC [address]YZUOYWG [place] [address]MT: 04/03/2018 Secondary NOT GIVENUNK Pedrito Insurance:SELF PAY [facility] Number: Effective Repository Date:2018-02-22 01/16/2018 GLORIA D Primary GLORIA D Henniker [id number] Insurance:ANTHEM GRASSMANDOB: Community [facility] [id number] Number: Repository [id number]: (330 [id number] [phone] (HP) Date:5137-44-97EL [address]EAWVDVO [place] [address]PN: 01/16/2018 Secondary NOT GIVENUNK Pedrito Insurance:SELF PAY [facility] Number: Effective Repository Date:2017-11-09 01/10/2018 GLORIA D Primary GLORIA D Henniker [id number] Insurance:ANTHEM GRASSMANDOB: Community [facility] [id number] Number: Repository [id number]: (330 [id number] [phone]) Date:0373-63-20FA [address]PODMFDK [place] [address]LB: 01/10/2018 Secondary NOT GIVENUNK Pedrito Insurance:SELF PAY [facility] Number: Effective Repository Date:2018-01-10 12/07/2017 GLORIA D Primary GLORIA D Henniker [id number] Insurance:ANTHEM GRASSMANDOB: Community [facility] [id number] Number: Repository [id number]: (330) [id number] [phone] () Date:6107-55-48[address]KVMKXLQ, [place] [address]GN: 12/07/2017 Secondary NOT GIVENUNK Henniker Insurance:SELF PAY [facility] Number: Effective Repository Date:2016-11-21 12/07/2017 GLORIA D Primary GLORIA D Pedrito [id number] Insurance:ANTHEMPolic GRASSMANDOB: Community [facility] y Number: [id number] [id number] Repository [address]Keh: (330) Date:7665-27-71ZN [phone] () [place]98[place]JZXFFVY, [place] [address]NJ: 12/07/2017 Secondary NOT GIVENUNK Henniker Insurance:SELF PAY [facility] Number: Effective Repository Date:2017-12-07 11/21/2017 GLORIA D Primary Insurance:MMO GLORIA D Henniker [id number] [facility] GRASSMANDOB: [facility] Number: [id number], [place] [id number] Repository 277[address]Vug: 330) Date:8030-12-80KW [phone] () [place], [place] [address]UM: 11/21/2017 Secondary NOT GIVENUNK Pedrito Insurance:SELF PAY [facility] Number: Effective Repository Date:2017-08-13 11/14/2017 GLORIA D Primary GLORIA D Henniker [id number] Insurance:ANTHEM GRASSMANDOB: Community [facility] [id number] Number: Repository [id number]: 330 [id number] [phone] () Date:2722-00-18VI [id number] [place] [address]HX: 11/14/2017 Secondary NOT GIVENUNK Pedrito Insurance:SELF PAY [facility] Number: Effective Repository Date:2017-10-11 10/14/2017 GLORIA D Primary GLORIA D Henniker [id number] Insurance:ANTHEM GRASSMANDOB: Community [facility] [id number] Number: Repository [id number]: (330 [id number] [phone] (HP) Date:5237-89-10OF [address]UMUAEZQ, [place] [address]IU: 10/14/2017 Secondary NOT GIVENUNK Pedrito Insurance:SELF PAY [facility] Number: Effective Repository Date:2017-10-14 10/10/2017 GLORIA D Primary GLORIA D Pedrito [id number] Insurance:ANTHEM GRASSMANDOB: Community [facility] [id number] Number: Repository [id number]: (330 [id number] [phone] (HP) Date:3995-41-73KK [address]WAFOCIZ, [place] [address]UU: 10/10/2017 Secondary NOT GIVENUNK Henniker Insurance:SELF PAY [facility] Number: Effective Repository Date:2017-10-10 10/09/2017 GLORIA D Primary GLORIA D Pedrito [id number] Insurance:ANTHEM GRASSMANDOB: Community [facility] [id number] Number: Repository [id number]: (330) [id number] [phone] (HP) Date:4320-92-96KP [address]WFNDDKF [place] [address]LG: 10/09/2017 Secondary NOT GIVENUNK Pedrito Insurance:SELF PAY [facility] Number: Effective Repository Date:2017-10-09 09/29/2017 GLORIA D Primary GLORIA D Pedrito [id number] Insurance:ANTHEM GRASSMANDOB: Community [facility] [id number] Number: Repository [id number]: (330) Effective [phone] (HP) Date:2610-25-93PV [address]BANTRVM, [place] [address]MU: 09/29/2017 Secondary NOT GIVENUNK Pedrito Insurance:SELF PAY [facility] Number: Effective Repository Date:2017-08-06 SOCIAL HISTORY SOCIAL HISTORY No Social History Records FoundFAMILY HISTORY FAMILY HISTORY No Family History Records FoundADVANCE DIRECTIVES ADVANCE DIRECTIVES No Advanced Directives Records FoundINFORMATION SOURCE INFORMATION SOURCE DATE CREATED AUTHOR AUTHOR'S ORGANIZATION 09/30/2018 OHIP
== END ==
PROVIDERS: Family Provider Internal Medicine; PCP Internal Medicine; Referring Provider Internal Medicine; Visit Provider Internal Medicine
DX: Z12.31 Encounter for screening mammogram for malignant neoplasm of breast (principal)
CPT/HCPCS: 77063; 77067

== ENCOUNTER 2018-09-24 22:25 | Emergency (ER) | payer MEDICARE, SELFPAY ==
[2018-09-24 22:25] VITALS: BP 190/90; PULSE 60; RESP 16; TEMP 36.7; O2SAT 99; BMI 26.9
[2018-09-24] MEDS: Diphth,Pertuss(Acell),Tet Vac 0.5 ML Vial IM (22:52)
[2018-09-24] MEDS: traMADol 50 MG Tablet PO (22:52)
--- NOTE | 2018-09-24 23:00 | RAD_ITS ---
STUDY: X-RAY - RIGHT HAND REASON FOR EXAM: Female, 78 years old. Injury walking a dog TECHNIQUE: Ray view(s) of the hand. COMPARISON: None. FINDINGS: There is joint space narrowing of the radiocarpal articulation consistent with degenerative arthrosis. Normal distal radioulnar joint. This chondrocalcinosis. Normal visualized carpal bones. Normal carpal articulations Normal carpometacarpal articulation of the thumb. Normal second through fifth carpometacarpal joints. Normal metacarpi. Normal metacarpophalangeal joint of the thumb. Normal interphalangeal joint of the thumb. Normal proximal and distal phalanges of the thumb. Normal metacarpophalangeal joints of the second through fifth fingers. Normal proximal and distal interphalangeal joints of the second through fifth fingers. There is a subtle nondisplaced fracture of the tip of the distal phalanx of the fifth digit. This is allowing for summation of shadows. The bones overall are osteopenic. RAD/Hand Min 3 Views IMPRESSION: Possible fracture of the tip of the fifth digit distal phalanx. Bony osteopenia Degenerative change chondrocalcinosis of the radiocarpal joint. No other visualized acute fracture.. Electronically Signed: Cindy Franz MD at 0:10 EST Tel , Service support ,
--- NOTE | 2018-09-24 23:31 | ED.VISSUMM ---
- ER Visit Summary Date of Service: 09/24/18 Chief Complaint: Right hand injury History of Present Illness: The patient is a 78 F who presents with an injury to her right hand. She was holding her dog's chain when the dog began to trace a deer in the chain injured her right hand. She sustained injuries to her right index ring and small finger with lacerations to the index and small fingers. She is uncertain of her last tetanus immunization but does not believe is up-to-date. She had a fall a few days ago and was seen in the emergency department and is still complaining of some ankle pain although she had normal x-rays. Physical Examination: Afebrile hypertensive but vitals otherwise unremarkable Heart regular rate No respiratory distress There are small wounds to the palmar aspect of the right index finger overlying the middle phalanx with two small roughly 2 mm lacerations, there is a 2 cm total laceration length of the right fifth fingertip which comes across the nailbed with avulsion of the distal nail and extends along the side of the finger with a small flap she has mild bleeding Test Results: Hand x-ray on my review shows no obvious fractures Emergency Department Course and Treatment: Patient's small finger was anesthetized using a digital block with 2% lidocaine. Good anesthesia was achieved. The wound was cleansed with sterile saline. Discussed possibility of poor wound healing although I do believe the flap is thick enough that it was amenable to suturing. 3 simple interrupted 5?0 nonabsorbable sutures were placed. Patient instructed on local wound care. She was instructed on signs and symptoms to monitor for and conditions which should prompt return here to the emergency department. Wounds cleansed and dressed with a hemostatic dressing to the right fifth finger by nursing staff and the patient was discharged. Treatment Plan: [] Disposition: Discharge Impression: Right hand lacerations Laceration repair This note was generated with [employer] dictation software. It may contain incorrect words, spelling, and punctuation that were not noted in review of the chart prior to signing ED Disposition - Plan for ED Patient: Chief Complaint: Upper Extremity Injury Referrals: Nafisa Chawla DO [Primary Care Provider] -
--- NOTE | 2018-09-24 23:36 | ED.DEP ---
ED Disposition - Plan for ED Patient: Chief Complaint: Upper Extremity Injury Instructions: ED Laceration Hand Referrals: Nafisa Chawla DO [Primary Care Provider] -
[2018-09-24] MEDS: BACITRACIN 15 GM Tube 1 APPLIC TOPICAL (23:55)
--- OUTSIDE RECORDS SUMMARY | 2018-11-27 05:41 | XMS RPT_ITS ---
:1940 Author Organization [place] Support Name Relationship Address Phone YASMINE PONCE [address] + [place] [address] YARELI PONCE Unavailable + R Unknown Unavailable Unavailable YASMINE PONCE [address] + [place] [address] YARELI PONCE Unavailable + R Unknown Unavailable Unavailable YASMINE PONCE [address] + [place] [address] + [place] [address] R Unknown Unavailable Unavailable YASMINE PONCE [address] + [place] [address] + [place] [address] R Unknown Unavailable Unavailable YASMINE PONCE [address] + [place] [address] + [place] [address] R Unknown Unavailable Unavailable YASMINE PONCE [address] + [place] [address] + [place] [address] R Unknown Unavailable Unavailable YASMINE PONCE [address] + [place] [address] + [place] [address] R Unknown Unavailable Unavailable YASMINE PONCE [address] + [place] [address] + [place] [address] R Unknown Unavailable Unavailable YASMINE PONCE [address] + [place] [address] + [place] [address] R Unknown Unavailable Unavailable YASMINE PONCESon [address] + [place] [address] + [place] [address] R Unknown Unavailable Unavailable YASMINE PONCESon [address] + [place] [address] + [place] [address] R Unknown Unavailable Unavailable YASMINE PONCESon [address] + [place] [address] + [place] [address] R Unknown Unavailable Unavailable YASMINE PONCE [address] + [place] [address] + [place] [address] R Unknown Unavailable Unavailable YASMINE PONCE [address] + [place] [address] + [place] [address] R Unknown Unavailable Unavailable YASMINE PONCE [address] + [place] [address] + [place] [address] R Unknown Unavailable Unavailable YASMINE PONCESon [address] + [place] [address] + [place] [address] R Unknown Unavailable Unavailable [address] + [place] [address] [address] + [place] [address] R Unknown Unavailable Unavailable [address] + [place] [address] [address] PON[address] + [place] [address] R Unknown Unavailable Unavailable [address] + [place] [address] YASMINE PONCE [address] + [place] [address] R Unknown Unavailable Unavailable [address] + [place] [address] YASMINE PONCE [address] + [place] [address] R Unknown Unavailable Unavailable [address] + [place] [address] YASMINE PONCE [address] + [place] [address] R Unknown Unavailable Unavailable [address] + [place] [address] [address] + [place] [address] R Unknown Unavailable Unavailable Care Team Providers Name Role Phone Fast DO, Nafisa A Attending Unavailable Fast DO, Nafisa A Referring Unavailable Fast DO, Nafisa A Consulting Unavailable Golden Kruger Attending Unavailable Fast, Nafisa Referring Unavailable Fast, Nafisa Primary Care Unavailable Juan Hernández Attending Unavailable Yasir Banegas Attending Unavailable Fast, Nafisa Primary Care Unavailable Fast, Nafisa Referring Unavailable Fast, Nafisa Primary Care Unavailable Renner, Mikey Attending Unavailable Fast, Nafisa Attending Unavailable Fast, Nafisa Primary Care Unavailable Fast, Nafisa Referring Unavailable Fast, Nafisa Primary Care Unavailable Carlton Rosales Attending Unavailable Fast, Nafisa Primary Care Unavailable Renner, Mikey Attending Unavailable Fast, Nafisa Primary Care Unavailable [place] Mikey Attending Unavailable Robert Johnston Attending Unavailable Fast, Nafisa Primary Care Unavailable Robert Johnston Referring Unavailable Fast, Nafisa Attending Unavailable Fast, Nafisa Referring Unavailable Fast, Nafisa Primary Care Unavailable Slick Golden Attending Unavailable Fast, Nafisa Referring Unavailable [...] Unavailable Fast, Nafisa Primary Care Unavailable Slick, Perry Attending Unavailable Fast, Nafisa Referring Unavailable Fast, [...] S93.409A - Sprain of Carlton Rosales Active [place] unspecified ligament Community of unspecified Hospital ankle, initial Repository encounter / S93.409A(ICD-10) 08/27/2018 Unknown R06.02 - Shortness Slick, Golden Active [place] of breath / Community R06.02(ICD-10) Hospital Repository 08/08/2018 Unknown M81.0 - Age-related Fast, Nafisa Active [place] osteoporosis without Community current pathological Hospital fracture / Repository M81.0(ICD-10) 07/26/2018 Unknown R93.89 - Abnormal Fast, Nafisa Active [place] findings on Community diagnostic imaging Hospital of other specified Repository body structures / R93.89(ICD-10) 06/13/2018 Unknown R07.9 - Chest pain, Slick, Golden Active [place] unspecified / Community R07.9(ICD-10) Hospital Repository 04/03/2018 Unknown I48.0 - Paroxysmal Slick, Golden Active [place] atrial fibrillation Community / I48.0(ICD-10) Hospital Repository 04/03/2018 Unknown I10 - Essential Slick, Golden Active [place] (primary) Community hypertension / Hospital I10(ICD-10) Repository 04/03/2018 Unknown Z95.0 - Presence of Slick, Golden Active [place] cardiac pacemaker / Community Z95.0(ICD-10) Hospital Repository 04/03/2018 Unknown E78.5 - Slick, Golden Active [place] Hyperlipidemia, Community unspecified / Hospital E78.5(ICD-10) Repository 04/17/2018 Unknown S52.572D - Other Robert Johnston Active [place] intraarticular Community fracture of lower Hospital end of left radius, Repository subsequent encounter for closed fracture with routine healing / S52.572D(ICD-10) 06/07/2018 Unknown 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, Community unspecified / Hospital D50.9(ICD-10) Repository 11/10/2017 Unknown R05 - Cough / Nafisa Chawla Active [place] R05(ICD-10) [facility] Hospital Repository 10/09/2017 Unknown T14.8XXA - Other Renner, Mikey Active [place] injury of Community unspecified body Hospital region, initial Repository encounter / T14.8XXA(ICD-10) PROCEDURES PROCEDURES No Procedure Records FoundVITAL SIGNS VITAL SIGNS No Vital Signs Records FoundRESULTS RESULTS DISCHARGE INSTRUCTION Observed: 09/24/2018 Status: F Source: [place] 11:37 PM [facility] REPOSITORY [facility] Medical Records Department [address] [place] [address] Discharge Instruction 09/24/182335 MR#: [id number] Acct: [id number] Name: HAMYAYAGLORIA Shaq Rep #: [id number] : 1940 78 From: Carlton Rosales MD [...] problems, contact your Primary Care Provider. Call [employer] [facility] [employer] [facility] ([phone]) or report to the closest Emergency Room. Call 911 if necessary. 09/24/182336 <Electronically signed by Carlton Rosales MD> Date Carlton Rosales MD Cosigner Signature (If Indicated): Date CC: Nafisa Chawla DO EMERGENCY DEPARTMENT Observed: 09/24/2018 Status: F Source: [place] SUMMARY 11:36 PM [facility] REPOSITORY [facility] Medical Records Department [address] [place] [address] Emergency Department Summary 09/24/18 2331 MR#: [id number] Acct: [id number] Name: GLORIA PONCE Rep #: [id number] : 1940 78 From: Carlton Rosales MD [...] Laceration repair This note was generated with [employer] dictation software. It may contain incorrect words, spelling, and punctuation that were not noted in review of the chart prior to signing ED Disposition - Plan for ED Patient: Chief Complaint: Upper Extremity Injury Referrals: Nafsia Chawla DO [Primary Care Provider] - What to do if you have Problems For any increased pain, shortness of breath, bleeding, nausea or vomiting, chest pain, or any unexpected problems, contact your Primary Care Provider. Call [employer] [facility] [employer] [facility] ([phone]) or report to the closest Emergency Room. Call 911 if necessary. 09/24/18 2336 <Electronically signed by Carlton Rosales MD> Date Carlton Rosales MD Cosigner Signature (If Indicated): Date CC: Nafisa Chawla DO HAND MIN 3 VIEWS Observed: 09/24/2018 Status: F Source: [place] 10:45 PM [facility] REPOSITORY [facility] Imaging Services [facility] [place] [address] Hand Min 3 Views MR#: [id number] Acct: [id number] Name: GLORIA PONCE Shaq Rep #: [id number] : 1940 F 78 From: Cindy Franz MD PCP: Nafisa Chawla DO Status: DEP ER Study: Hand Min 3 Views Date of Exam: 09/24/18 Exam# [id number] Ordering Dr: Carlton Rosales MD STUDY: X-RAY [...] CC: Nafisa Chawla DO; Carlton Rosales MD Sucker Machine Operator: Signed SCREENING MAMM (CAD), Observed: 09/21/2018 Status: F Source: [place] BILAT 8:10 AM [facility] REPOSITORY [facility] Imaging Services [address] [place] [address] SCREENING MAMM (CAD), BILAT MR#: [id number] Acct: [id number] Name: GLORIA PONCE Rep #: [id number] : 1940 F 78 From: Steve Ramos MD PCP: Nafisa Chawla DO Status: REG CLI Study: SCREENING MAMM (CAD), BILAT Date of Exam: 09/21/18 Exam# [id number] Ordering Dr: Nafisa Chawla DO MAMMOGRAPHY - [...] delay biopsy of a clinically suspicious abnormality. [id number] Electronically Signed: Steve Ramos MD at 9:18 EST Tel [phone], Service support , CC: Nafisa Chawla DO Sucker Machine Operator: Signed DISCHARGE INSTRUCTION Observed: 09/16/2018 Status: F Source: [place] 11:35 PM [facility] Medical Records Department [address] [place] [address] Discharge Instruction 09/16/18 2334 MR#: [id number] Acct: [id number] Name: GLORIA PONCE Rep #: [id number] : 1940 78 From: Juan Hernández MD [...] your Primary Care Provider. Call [facility] ([phone]) or report to the closest Emergency Room. Call 911 if necessary. 09/16/182334 <Electronically signed by Juan Hernández MD> Date Juan Hernández MD Cosigner Signature (If Indicated): Date CC: Nafisa Chawla DO EMERGENCY DEPARTMENT Observed: 09/16/2018 Status: F Source: [place] SUMMARY 11:34 PM [facility] REPOSITORY [facility] Medical Records Department [address] [place] [address] Emergency Department Summary 09/16/18 2158 MR#: [id number] Acct: [id number] Name: GLORIA PONCE Rep #: [id number] : 1940 78 From: Juan Hernández MD [...] lumbar contusion This note was generated with [employer] dictation software. It may contain incorrect words, [...] your Primary Care Provider. Call [facility] ([phone]) or report to the closest Emergency Room. Call 911 if necessary. 09/16/18 9354 <Electronically signed by Juan Hernández MD> Date Juan Hernández MD Cosigner Signature (If Indicated): Date CC: Nafisa Chawla DO LUMBAR SPINE 2 OR 3 Observed: 09/16/2018 Status: F Source: [place] VIEWS 10:45 PM [facility] Imaging Services [address] [place] [address] Lumbar Spine 2 or 3 Views MR#: [id number] Acct: [id number] Name: GLORIA PONCE Rep #: [id number] : 1940 F 78 From: Trevor Rosen MD PCP: Nafisa Chawla DO Status: REG ER Study: Lumbar Spine 2 or 3 Views Date of Exam: 09/16/18 Exam# [id number] Ordering Dr: Juan Hernández MD STUDY: X-RAY [...] CC: Nafisa Chawla DO; Juan Hernández MD Sucker Machine Operator: Signed ANKLE MIN 3 VIEWS Observed: 09/16/2018 Status: F Source: [place] 9:56 PM [facility] Imaging Services [address] [place] [address] Ankle min 3 Views MR#: [id number] Acct: [id number] Name: GLORIA PONCE Rep #: [id number] : 1940 F 78 From: Trevor Rosen MD PCP: Nafisa Chawla DO Status: REG ER Study: Ankle min 3 Views Date of Exam: 09/16/18 Exam# [id number] Ordering Dr: Juan Hernández MD STUDY: X-RAY [...] CC: Nafisa Chawla DO; Juan Hernández MD Sucker Machine Operator: Signed ECHOCARDIOGRAM COMPLETE Observed: 08/09/2018 Status: F Source: [place] 12:14 PM [facility] REPOSITORY [facility] Cardiovascular [place] [address] Echo Complete 08/09/18 0805 MR#: [id number] Acct: [id number] Name: GLORIA PONCE Shaq Rep #: [id number] : 1940 78 From: Golden Kruger MD Attending Dr: Nafisa Chawla DO Status: REG CLI Ordering Dr: Nafisa Chawla DO Date: 08/09/18 Location: [facility] Sex: F C Admitted: Reason For [...] Dictated: 08/09/18 0805 Date Transcribed: 08/09/18 1213 Sucker Machine Operator: Signed DEXA BONE DENSITY Observed: 08/08/2018 Status: F Source: [place] STUDY 8:30 AM [facility] REPOSITORY [facility] Imaging Services [address] [place] [address] Dexa Bone Density Study MR#: [id number] Acct: [id number] Name: HAMYAYAGLORIA Rep #: [id number] : 1940 F 78 From: Steve Ramos MD PCP: Nafisa Chawla DO Status: REG CLI Study: Dexa Bone Density Study Date of Exam: 08/08/18 Exam# [id number] Ordering Dr: Nafisa Chawla DO STUDY: DUAL [...] Steve Ramos MD at 15:48 EST Tel [phone], Service support , CC: Nafisa Chawla DO Sucker Machine Operator: Signed BNP,B-TYPE NATRIURETIC Collected: 07/25/2018 Status: F Source: [place] PEPTIDE 2:14 PM [facility] REPOSITORY TYPE CODE TESTS RESULT OUT OF RANGE REFERENCE UNITS LAB L503.6620 0-100 pg/mL High B-TYPE 335.7 BRO PEP Performed By: #### L503.6620 #### [facility] [address] [place], [address] CHEST PA AND LATERAL Observed: 07/17/2018 Status: F Source: [place] 12:29 PM [facility] REPOSITORY [facility] Imaging Services [address] [place] [address] Chest PA and Lateral MR#: [id number] Acct: [id number] Name: GLORIA PONCE Rep #: [id number] : 1940 F 78 From: Steve Ramos MD PCP: Nafisa Chawla DO Status: REG CLI Study: Chest PA and Lateral Date of Exam: 07/17/18 Exam# [id number] Ordering Dr: Nafisa Chawla DO STUDY: X-RAY [...] Steve Ramos MD at 12:48 EST Tel [phone], Service support , CC: Nafisa Chawla DO Sucker Machine Operator: Signed STRESS REPORT Observed: 05/16/2018 Status: F Source: [place] 11:07 AM [facility] REPOSITORY [facility] Cardiovascular Services [address] [place] [address] MR#: [id number] Acct: [id number] Name: GLORIA PONCE Rep #: [id number] : 1940 78 From: Golden Kruger MD [...] DO Date Dictated: 05/16/184 Date Transcribed: 05/16/181103 Sucker Machine Operator: [place] Signed THYROID Observed: 05/16/2018 Status: F Source: [place] 8:54 AM [facility] REPOSITORY [facility] Imaging Services [address] [place] [address] Thyroid MR#: [id number] Acct: [id number] Name: HAMYAYAGLORIA Rep #: [id number] : 1940 F 78 From: Ivan Thorne MD PCP: Nafisa Chawla DO Status: REG CLI Study: Thyroid Date of Exam: 05/16/18 Exam# [id number] Ordering Dr: Nafisa Chawla DO STUDY: THYROID [...] Service support , CC: Nafisa Chawla DO Sucker Machine Operator: Signed CAROTID DUPLEX Observed: 05/16/2018 Status: F Source: [place] ULTRASOUND 8:38 AM [facility] REPOSITORY [facility] Cardiovascular Services [address] [place] [address] Carotid Duplex Ultrasound 05/16/18 0757 MR#: [id number] Acct: [id number] Name: GLORIA PONCE Rep #: [id number] : 1940 78 From: Marc Katz MD Attending Dr: Nafisa Chawla DO Status: REG CLI Ordering Dr: Nafisa Chawla DO Date: 05/16/18 Location: [facility] Sex: F C Admitted: Reason For [...] the left vertebral artery. Procedure Carotid Duplex 55284. Exam performed in department. Interpretation Summary Mild (<50%) stenosis right extracranial internal carotid. Mild (<50%) stenosis left extracranial internal carotid. Flow within the vertebral arteries is antegrade bilaterally. Ordering Physician: Nafisa Chawla Referring Physician: Nafisa Chawla Performed By: Sybil Burris, RDCS, RVT 05/16/18 0838 Date Marc Katz MD CC: Nafisa Chawla DO Date Dictated: 05/16/18 075 Date Transcribed: 05/16/18837 Sucker Machine Operator: Signed PACEMAKER CHECK Observed: 04/18/2018 Status: F Source: [place] 11:47 AM [facility] REPOSITORY [facility] [address] [place] [address] Pacemaker Check Date of Service: 04/17/18 141 MR#: [id number] Acct: [id number] Name: GLORIA PONCE Rep #: [id number] : 1940 From: Daniela Mahan Age/Sex: 78/F Location: [facility] Status: Signed Billing Codes PM Device Codes: PM Dev Prog Eval, Dual 04/17/18 1414 <Electronically signed by Daniela Mahan > Date Daniela Mahan 04/18/18 1147<Electronically signed by Golden Kruger MD> Cosign Signature: Date (if applicable) Golden Kruger MD CC: CARDIOLOGY VISIT Observed: 04/03/2018 Status: F Source: [place] REPORT 2:44 PM [facility] REPOSITORY [facility] [address] [place] [address] OFFICE VISIT Date of Service: 04/03/18 MR#: [id number] Acct: [id number] Name: GLORIA PONCE Rep #: [id number] : 1940 Provider: Golden Kruger MD Age/Sex: 78/F Location[facility] Status: Signed HPI 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 Interrogation shows 213 MS episodes, <1% total time and 3 VHR episodes since last check 09/28/17. Stored e-grams show atrial flutter with appropriate MS. VHR episodes show atrial fib with VHR up to 170 bpm. Left pectoral pocket/incision w/o s/s of infection or erosion. Pt offers no new cardiac complaints. Presenting rhythm shows AAI pacing @ 72 ppm. TRADE ANALYST=<1%. Estimated battery life 4.7 yrs. 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 [place] [address] Fax REHABILITATION SERVICES DISCHARGE SUMMARY MR#: [id number] Acct: [id number] Name: HAMYAYAGLORIA D Rep #: [id number] : 1940 77 From: Monica IBRAHIM/Melchor, CHT [...] PT (1) Observed: 01/17/2018 Status: F Source: [place] 7:32 AM [facility] REPOSITORY [facility] [address] [place], [place] [address] Fax REEVALUATION / MEDICARE RECERTIFICATION PHYSICAL THERAPY MR#: [id number] Acct: [id number] Name: HAMGLORIA JAVIER Shaq Rep #: [id number] : 1940 77 From: Kvng Jerez DPT, [...] do not hesitate to contact me at [phone] by phone or if you have questions [...] Status: F Source: [place] 12:45 PM [facility] REPOSITORY [place] [facility] [place] [address] [place] [address] Pacemaker Check Date of Service: 01/10/18 1447 MR#: [id number] Acct: [id number] Name: GLORIA PONCE Rep #: [id number] : 1940 From: Daniela Mahan Age/Sex: 77/F Location[place] [facility] Status: Signed Comments Summary Comments: Dual Chamber Pacemaker Evaluation: See attached scanned computer game programmer report. Interrogation shows 213 MS episodes, <1% total time and 3 VHR episodes since last check 09/28/17. Stored e-grams show atrial flutter with appropriate MS. VHR episodes show atrial fib with VHR up to 170 bpm. Left pectoral pocket/incision w/o s/s of infection or erosion. Pt offers no new cardiac complaints. Presenting rhythm shows AAI pacing @ 72 ppm. TRADE ANALYST=<1%. Estimated battery life 4.7 yrs. Device and lead measurements remain stable. Decreased atrial amplitude with adequate safety margin. Counters cleared. Next f/u appt scheduled for in 3 mos. Device Device Date Interviewed: 01/10/18 Follow-up Location: in office Interview Reason: routine follow up Manager Compensation: [employer] Name: Joshua TILLMAN Model: 2240 Serial #: [id number] Implant Date: 07/13/15 Year(s): 2 Implant Physician: Dr. Kurtis Bassett/ Patient Characteristics Atrial Indication: Paroxysmal atrial fibrillation, sick sinus syndrome Patient Substrate: Syncope Ejection fraction %: 45 to 49 (07/2015) By: Echo Underlying rhythm: Sinus bradycardia Pacemaker Dependent: No Device Characteristics Device: Dual Chamber Type: Pacemaker Remote Follow-Up: No Device Physical Exam Yes Incision well healed Leads Lead #1 Manager Compensation Lead 1: [employer] Model Lead 1: Serial# Lead 1: [id number] Date Implanted Lead 1: 07/13/15 Position Lead 1: RA Lead #2 Manager Compensation Lead 2: [employer] Model Lead 2: Serial# Lead 2: [id number] Date Implanted Lead 2: 07/13/15 Position Lead [...] RE-EVALUTION OT Observed: 01/02/2018 Status: F Source: [place] 2:56 PM [facility] REPOSITORY [facility] [place] [address] Fax REEVALUATION / MEDICARE RECERTIFICATION OCCUPATIONAL THERAPY MR#: [id number] Acct: [id number] Name: GLORIA PONCE Rep #: [id number] : 1940 77 From: Monica Barry OTR/L, [...] and IADLs Objective/Function: pt demo a left fermenting cellars receiver of 30#. ROM is WFL. left lat.pinch [...] pt will demo a increase in left fermenting cellars receiver strength by 30# to increase her ind. [...] do not hesitate to contact me at [phone] by phone or if you have questions or concerns regarding this new plan of care! Sincerely, ALEX[place]RIA Lepe/TORO Roche <Electronically signed by Monica IBRAHIM/TORO Roche> 01/02/18 1706 CC: Robert Johnston DO; Nafisa Chawla DO Signed For Medicare only, by signing this I certify the plan of care. Physicians Signature Date ONCOLOGY VISIT REPORT Observed: 12/07/2017 Status: F Source: [place] 1:14 PM [facility] REPOSITORY [place] [facility] [place] [address] OFFICE VISIT Date of Service: 12/07/17 1137 MR#: [id number] Acct: [id number] Name: GLORIA PONCE Rep #: [id number] : 1940 From: Yasir Banegas MD Age/Sex: [...] unspecified Code Visit Office Visits / Consults: 19500 OV L3 Est 12/07/17 1314 <Electronically signed by Yasir Banegas MD> Date Yasir Banegas MD Cosigner Signature: Date (if applicable) CC: CBC W/DIFF, AUTOMATED Collected: 12/07/2017 Status: F Source: [place] 10:45 AM [facility] REPOSITORY Order Comment: Reason for Laboratory Test [...] Lymph 1.57 Performed By: #### L100.0100 #### [facility] [address] [place], [address] COMPREHENSIVE METABOLIC Collected: 12/07/2017 Status: F Source: [facility] 10:45 AM [facility] REPOSITORY Order Comment: Reason for Laboratory Test [...] By: #### L500.4050, L503.6075, L503.6150, L503.6550 #### [facility] [address] [place], [place], [id number] IRON BINDING Collected: 12/07/2017 Status: F Source: [facility] 10:45 AM [facility] REPOSITORY Order Comment: Reason for Laboratory Test ANEMIA TYPE CODE TESTS RESULT OUT OF RANGE REFERENCE UNITS LAB L503.6075 250-450 ug/dL Normal TIBC 430 Performed By: #### L500.4050, L503.6075, L503.6150, L503.6550 #### [facility] [address] [place], [place], [address] IRON Collected: 12/07/2017 Status: F Source: [place] 10:45 AM [facility] REPOSITORY Order Comment: Reason for Laboratory Test ANEMIA TYPE CODE TESTS RESULT OUT OF RANGE REFERENCE UNITS LAB L503.6150 50-170 ug/dL Low IRON 42 Performed By: #### L500.4050, L503.6075, L503.6150, L503.6550 #### [facility] [address] [place], [address] FERRITIN Collected: 12/07/2017 Status: F Source: [place] 10:45 AM [facility] REPOSITORY Order Comment: Reason for Laboratory Test ANEMIA TYPE CODE TESTS RESULT OUT OF RANGE REFERENCE UNITS LAB L503.6550 8-252 ng/mL Normal [place]IN 34 Performed By: #### L500.4050, L503.6075, L503.6150, L503.6550 #### [facility] [address] [place], [address] INITAL EVALUATION (1) Observed: 11/23/2017 Status: F Source: [place] - PT 9:22 AM [facility] REPOSITORY [facility] [address] [place], [place] [address] Fax REHABILITATION SERVICES INITIAL EVALUATION MR#: [id number] Acct: [id number] Name: GLORIA PONCE Rep #: [id number] : 1940 77 From: Kvng Jerez DPT, [...] to be FAXED BACK to us at [phone] for Medicare purposes. Please let me know if there are questions or concerns regarding this plan of care. Physician Signature: Date: <Electronically signed by Kvng Jerez DPT, OCS, CSCS> 11/23/17 0922 CC: Robert Johnston DO; Nafisa Chawla DO EBG Signed For Medicare only, by signing this I certify the plan of care. Physicians Signature Date OT GENERAL EVALUATION Observed: 11/21/2017 Status: F Source: [place] 4:13 PM [facility] REPOSITORY [facility] [address] [place] [address]. [address] [place], [place] [address] Fax REHABILITATION SERVICES INITIAL EVALUATION MR#: [id number] Acct: [id number] Name: GLORIA PONCE Rep #: [id number] : 1940 77 From: Monica IBRAHIM/TORO Roche [...] left thumb pain with ext. - Strength Client Customer Manager: right 45# left NT Lateral Pinch: right 4# left NT Tripod Pinch: right 8# left NT - Edema Wrist: right 16cm left 17.5 cm - Sensation Sensation Comments: denies - Hand/Wrist Evaluation Total Score of Pain AND Functional Sections: 82 - Goals Goal:: pt will demo a increase in left fermenting cellars receiver strength by 30# to increase her ind. [...] to be FAXED BACK to us at [phone] for Medicare purposes. Please let me know if there are questions or concerns regarding this plan of care. Physician Signature: Date: <Electronically signed by Monica HENNING CHT> 11/21/17 1613 CC: Robert Johnston DO; Nafisa Chawla DO MK Signed For Medicare only, by signing this I certify the plan of care. Physicians Signature Date EMERGENCY DEPARTMENT Observed: 10/14/2017 Status: F Source: [place] SUMMARY 1:43 PM [facility] REPOSITORY [facility] Medical Records Department [address] [place] [address] Emergency Department Summary 10/14/17 1337 MR#: [id number] Acct: [id number] Name: GLORIA PONCE Rep #: [id number] : 1940 77 From: Mikey Renner MD [...] initial encounter This note was generated with [employer] dictation software. It may contain incorrect words, [...] your Primary Care Provider. Call [facility] ([phone]) or report to the closest Emergency Room. Call 911 if necessary. 10/14/17 1340 <Electronically signed by Mikey Renner MD> Date Mikey Renner MD Cosigner Signature (If Indicated): Date CC: Nafisa Chawla DO FOREARM 2 VIEWS Observed: 10/14/2017 Status: F Source: [place] 12:46 PM [facility] REPOSITORY [facility] Imaging Services [address] [place] [address] Forearm 2 Views MR#: [id number] Acct: [id number] Name: GLORIA PONCE Rep #: [id number] : 1940 F 77 From: Félix Wills MD PCP: Nafisa Chawla DO Status: DEP ER Study: Forearm 2 Views Date of Exam: 10/14/17 Exam# [id number] Ordering Dr: Mikey Renner MD STUDY: X-RAY [...] CC: Nafisa Chawla DO; Mikey Renner MD Sucker Machine Operator: Signed EMERGENCY DEPARTMENT Observed: 10/10/2017 Status: F Source: [place] SUMMARY 2:19 PM [facility] REPOSITORY [facility] Medical Records Department [address] [place] [address] Emergency Department Summary 10/10/17 1414 MR#: [id number] Acct: [id number] Name: GLORIA PONCE Rep #: [id number] : 1940 77 From: Mikey Renner MD [...] wrist and applying ice. She states the Elrama she was prescribed is not helping at [...] initial interpretation. Of note patient has an Bahi wrap on and the Abhi wrap was [...] to Xarelto This note was generated with [employer] dictation software. It may contain incorrect words, [...] problems, contact your Primary Care Provider. Call [employer] [facility] ([phone]) or report to the closest Emergency Room. Call 911 if necessary. 10/10/17 7053 <Electronically signed by Mikey Renner MD> Date Mikey Renner MD Cosigner Signature (If Indicated): Date CC: Nafisa Chawla DO EMERGENCY DEPARTMENT Observed: 10/10/2017 Status: F Source: [place] SUMMARY 12:25 AM [facility] REPOSITORY [facility] Medical Records Department [address] [place] [address] Emergency Department Summary 10/09/17 1744 MR#: [id number] Acct: [id number] Name: GLORIA PONCE Rep #: [id number] : 1940 77 From: Nigel Brown MD PCP: Nafisa Chawla DO Status: DEP ER - ER Visit Summary Date of Service: 10/09/17 Addendum: The patient went to [facility] to get her prescription for Elrama which had been sent electronically. They told her that they did not have a record of this. The patient had a paper prescription given so that she could get this filled. This note was generated with [employer] dictation software. It may contain incorrect words, spelling, and punctuation that were not noted in review of the chart prior to signing ED Disposition - Plan for ED Patient: Disposition: Home or Assisted Living Chief Complaint: Upper Extremity Injury Prescriptions: Hydrocodone Bitart/Apap 5-325 [Elrama 5/325] 1 - 2 tab PO Q4H PRN PRN 3 Days #10 tab PRN Reason: Pain Hydrocodone Bitart/Apap 5-325 [Elrama 5MG-325MG] 1 tablet PO Q6H PRN PRN [...] your Primary Care Provider. Call [facility] ([phone]) or report to the closest Emergency Room. Call 911 if necessary. 10/10/17 0025 <Electronically signed by Nigel Brown MD> Date Nigel Brown MD Cosigner Signature (If Indicated): Date CC: Nafisa Chawla DO EMERGENCY DEPARTMENT Observed: 10/09/2017 Status: F Source: [place] SUMMARY 3:00 PM [facility] REPOSITORY [facility] Medical Records Department [address] [place] [address] Emergency Department Summary 10/09/17 1456 MR#: [id number] Acct: [id number] Name: GLORIA PONCE Shaq Rep #: [id number] : 1940 77 From: Mikey Renner MD PCP: Nafisa Chawla DO Status: REG ER - ER Visit Summary Date of Service: 10/09/17 Chief Complaint: [] History of Present Illness: The patient is a 77 F [] Physical Examination: [] Test Results: [] Emergency Department Course and Treatment: [] Treatment Plan: [] Disposition: [] Impression: [] This note was generated with [employer] dictation software. It may contain incorrect words, spelling, and punctuation that were not noted in review of the chart prior to signing ED Disposition - Plan for ED Patient: Disposition: Home or Assisted Living Chief Complaint: Upper Extremity Injury Instructions: ED Contusion Upper Ext Prescriptions: Hydrocodone Bitart/Apap 5-325 [Elrama 5MG-325MG] 1 tablet PO Q6H PRN PRN [...] your Primary Care Provider. Call [facility] ([phone]) or report to the closest Emergency Room. Call 911 if necessary. 10/09/17 1500 <Electronically signed by Mikey Renner MD> Date Mikey Renner MD Cosigner Signature (If Indicated): Date CC: Nafisa Chawla DO EMERGENCY DEPARTMENT Observed: 10/09/2017 Status: F Source: [place] SUMMARY 2:55 PM [facility] REPOSITORY [facility] Medical Records Department [address] [place] [address] Emergency Department Summary 10/09/17 1451 MR#: [id number] Acct: [id number] Name: GLORIA PONCE Rep #: [id number] : 1940 77 From: Mikey Renner MD [...] initial encounter This note was generated with [employer] dictation software. It may contain incorrect words, [...] your Primary Care Provider. Call [facility] ([phone]) or report to the closest Emergency Room. Call 911 if necessary. 10/09/17 1455 <Electronically signed by Mikey Renner MD> Date Mikey Renner MD Cosigner Signature (If Indicated): Date CC: Nafisa Chawla DO WRIST MIN 3 VIEWS Observed: 10/09/2017 Status: F Source: [place] 2:03 PM [facility] REPOSITORY [facility] Imaging Services [address] [place] [address] Wrist min 3 Views MR#: [id number] Acct: [id number] Name: GLORIA PONCE Rep #: [id number] : 1940 F 77 From: Steve Ramos MD PCP: Nafisa Chawla DO Status: PRE ER Study: Wrist min 3 Views Date of Exam: 10/09/17 Exam# [id number] Ordering Dr: Mikey Renner MD STUDY: X-RAY [...] Steve Ramos MD at 14:28 EST Tel [phone], Service support , CC: Nafisa Chawla DO; Mikey Renner MD Sucker Machine Operator: Signed OFFICE VISIT REPORT Observed: 10/02/2017 Status: F Source: [place] 7:32 AM [facility] Services [facility] [place] [address] OFFICE VISIT Date of Service: 09/29/17 MR#: [id number] Acct: [id number] Patient: GLORIA PONCE Rep #: [id number] : 1940 Provider: Daniela Mahan Age/Sex: 77/F Location: [facility] Status: Signed Comments Summary Comments: Dual Chamber [...] rhythm shows AAI pacing @ 60 ppm. TRADE ANALYST=<1%, AP=92%. Battery longevity approx 4.7 yrs. Lead impedances, sensing and paces/sense thresholds remain stable. No parameter changes made. Counters cleared. Next f/u appt scheduled for in 3 mos. Device Device Date Interviewed: 09/29/17 Follow-up Location: in office Interview Reason: routine follow up Manager Compensation: [employer] Name: Joshua TILLMAN Model: 2240 Serial #: [id number] Implant Date: 07/13/15 Year(s): 2 Implant Physician: Dr. Kurtis Bassett/ Patient Characteristics Atrial Indication: Paroxysmal atrial fibrillation, sick sinus syndrome Patient Substrate: Syncope Ejection fraction %: 45 to 49 (07/2015) By: Echo Underlying rhythm: Sinus bradycardia Pacemaker Dependent: No Device Characteristics Device: Dual Chamber Type: Pacemaker Remote Follow-Up: No Device Physical Exam Yes Incision well healed Leads Lead #1 Manager Compensation Lead 1: [employer] Model Lead 1: Serial# Lead 1: [id number] Date Implanted Lead 1: 07/13/15 Position Lead 1: RA Lead #2 Manager Compensation Lead 2: [employer] Model Lead 2: 8/52 Serial# Lead 2: [id number] Date Implanted Lead 2: 07/13/15 Position Lead [...] SEVERITY SOURCE 09/24/2018 Drug amlodipine Itching [place] Allergy/416 besylate/[id number] Formerly [facility] 650908([address]) Repository 09/24/2018 Drug hydralazine/F0060 Itching [place] Allergy/416 29708(RXNORM) Formerly [facility] 219786([facility] ED CT) Repository ENCOUNTERS ENCOUNTERS ADMIT/DISCHARGE ACCOUNT ADMITTING ENCOUNTER LOCATION SOURCE NUMBER CLASS 09/26/2018 1339 Ambulatory Building:[facility] OHIP Practices Repository 09/24/2018/ [id number] Emergency [place] 9 0 [facility] ing:ED Repository 09/21/2018 [id number] Ambulatory [place] 4 [facility] ing:OPBI Repository 09/16/2018/ [id number] Emergency [place] 9 3 [facility] ing:ED Repository 08/09/2018 [id number] Ambulatory BMSBuilding:W [place] 4 [facility] Repository 08/09/2018 [id number] Ambulatory [place] 8 [facility] ing:CVS Repository 08/08/2018 [id number] Ambulatory [place] 2 [facility] ing:OPBD Repository 07/25/2018 [id number] Ambulatory [place] 7 [facility] ing:LABSPEC Repository 07/17/2018 [id number] Ambulatory [place] 4 [facility] ing:HPRAD Repository 05/16/2018 [id number] Ambulatory [place] 1 [facility] ing:CVS Repository 05/16/2018 [id number] Ambulatory BMSBuilding:W [place] 9 [facility] Repository 04/17/2018/ [id number] Ambulatory BMSBuilding:B [place] 8 4 [facility] Repository 04/03/2018/ [id number] Ambulatory BMSBuilding:B [place] 8 4 [facility] Repository 01/16/2018/ [id number] Ambulatory [place] 8 4 [facility] ing:PT Repository 01/10/2018/ [id number] Ambulatory BMSBuilding:B [place] 8 0 [facility] Repository 12/07/2017 [id number] Ambulatory [place] 9 [facility] ing:OMD Repository 12/07/2017 [id number] Ambulatory BMSBuilding:B [place] 8 [facility] Repository 11/21/2017 [id number] Ambulatory BMSBuilding:B [place] 9 [facility] Repository 11/14/2017 [id number] Ambulatory [place] 6 [facility] ing:PSN Repository 10/14/2017/ [id number] Emergency [place] 8 9 [facility] ing:ED Repository 10/10/2017/ [id number] Emergency [place] 8 3 [facility] ing:ED Repository 10/09/2017/ [id number] Emergency [place] 8 9 [facility] ing:ED Repository 09/29/2017/ [id number] Ambulatory BMSBuilding:B [place] 8 0 [facility] Repository FUNCTIONAL STATUS FUNCTIONAL STATUS No Functional Status Records FoundEQUIPMENT EQUIPMENT No Equipment Records FoundPAYERS PAYERS ENCOUNTER GUARANTOR PAYER SUBSCRIBER SOURCE 09/26/2018 GLORIA New OHRADHA Practices GRASSMANDOB: Insurance:[place]/Medi GRASSMANDOB: Repository [id number] care Adv planPolicy [id number] [place] Number: JRI 3 Carrington [facility] Hospital[facility], [place] [id number] [facility] HospitalruddyWIND[place], [place] [address]Ijk: (330) Date:2214-79-85Wnwx [address]Cdz: Name:[phone] (HP) (HP)Tel: [phone]) [phone], [place] [phone] ( [phone]: 09/26/2018 Secondary GLORIA D OHIP Practices Insurance:United GRASSMANDOB: Repository [facility] [id number] Number: 3 [place] [id number] [place], [place] Date:2004-08-04 [address]Hvy: 0835-65-27Mfhk ~(3 Name:[address] (HP) [address]70[address]Gsbhbml, [place] [address]PF: 09/26/2018 Tertiary GLORIA D OHIP Practices Insurance:ReferralsPo GRASSMANDOB: Repository licy Number: [id number] Effective Date: - 2503-77-39Cgfp Name:Tanish[place] [address]Exw: ~(3 30 (HP) 09/26/2018 Tertiary GLORIA D OHIP Practices Insurance:MedicarePol GRASSMANDOB: Repository icy Number: [id number] 3 Date:2006-03-04 - [place] 5711-20-73Fned [address]Rco: Name:CONCRETE TECHNICIAN Box ~(3 [address]Wvyrblve, [place] 30 (HP) [address]QU: 09/26/2018 Tertiary GLORIA D OHIP Practices Insurance:PrimetimePo GRASSMANDOB: Repository licy Number: [id number] 3 Date:2006-09-04 - [place] 7855-34-59Jkbw [address]Wtr: Name:FPO Box ~(3 [address], [place] 30 (HP) [address]LD: 09/26/2018 Tertiary GLORIA D OHIP Practices Insurance:SECURE GRASSMANDOB: Repository CARE/MCARE ADV [id number] PLANPolicy Number: 3 [place]rington [id number] DrInd[facility] Hospitalstneftaly, [place] Date:2008-09-04 [address]Ngb: 3748-83-44Bqfo ~(3 Name:[id number] (HP) ELIER Dee [address]DT: 09/26/2018 Tertiary GLORIA D OHIP Practices Insurance:First GRASSMANDOB: Repository [employer] [id number] [employer]Policy 3 [place] Number: Effective [place], [place] Date: [address]Tss: 2269-52-83Fvzj ~(3 Name:[id number] [address] (HP) [address], [place] [address]YA: 09/26/2018 Tertiary GLORIA D OHIP Practices Insurance:Summa GRASSMANDOB: Repository CarePolicy Number: [id number] 3 [place] Date:2015-08-04 - [place] 8549-59-28Zbqh [address]Tuy: Name:FPO [address] ~(3 [address], [place] 30 (HP) [address]QX: 09/26/2018 Tertiary GLORIA D OHIP Practices Insurance:Medical GRASSMANDOB: Repository [facility] [id number] AdvPolicy Number: 3 [place] [id number] [place], [place] Date:2016-09-04 [address]Fop: 8643-96-92Izdl ~(3 Name:CONCRETE TECHNICIAN [address] (HP) [address], [place] [address]FJ: 09/24/2018 GLORIA D Primary GLORIA D [place] [id number] Insurance:HUMANA GRASSMANDOB: Community [place] [facility] PPOPolicy [id number], [place] Number: Repository [address]Hdt: 330 [id number] [phone] (HP) Date:3496-38-27RU [address] [address]RO: 09/24/2018 Secondary NOT GIVENUNK [place] Insurance:SELF PAY [facility] Number: Effective Repository Date:2018-09-24 09/21/2018 GLORIA D Primary GLORIA D [place] [id number] Insurance:HUMANA GRASSMANDOB: Community [place] [facility] PPOPolicy [id number], [place] Number: Repository [address]Afl: 330 [id number] [phone] (HP) Date:4316-22-31EG [address] [address]SA: 09/21/2018 Secondary NOT GIVENUNK [place] Insurance:SELF PAY [facility] Number: Effective Repository Date:2018-01-02 09/16/2018 GLORIA D Primary GLORIA D [place] [id number] Insurance:HUMANA GRASSMANDOB: Community [place] [facility] PPOPolicy [id number], [place] Number: Repository [address]Xci: 330 [id number] [phone] (HP) Date:4622-80-57QV [address] [address]VN: 09/16/2018 Secondary NOT GIVENUNK [place] Insurance:SELF PAY [facility] Number: Effective Repository Date:2018-09-16 08/09/2018 GLORIA D Primary GLORIA D [place] [id number] Insurance:ANTHEM GRASSMANDOB: Community [facility] [facility] [id number] HospitalAPoly Number: Repository [address]Anh: 330 [id number] [phone] (HP) Date:4320-27-85AQ [address]PGPIQDP, [place] [address]WC: 08/09/2018 Secondary NOT GIVENUNK [place] Insurance:SELF PAY [facility] Number: Effective Repository Date:2018-08-09 08/09/2018 GLORIA D Primary GLORIA D [place] [id number] Insurance:ANTHEM GRASSMANDOB: Community [facility] [id number], [place] ADVANTAPolicy Number: Repository [id number]: 330 [id number] [phone] () Date:9502-80-74YJ [address] [place] [address]GB: 08/09/2018 Secondary NOT GIVENUNK [place] Insurance:SELF PAY [facility] Number: Effective Repository Date:2018-08-03 08/08/2018 GLORIA D Primary GLORIA D [place] [id number] Insurance:ANTHEM GRASSMANDOB: Community [facility] [id number], [place] ADVANTAPolicy Number: Repository [id number]: 330 [id number] [phone] () Date:6891-51-49EE [address] [place] [address]KI: 08/08/2018 Secondary NOT GIVENUNK [place] Insurance:SELF PAY [facility] Number: Effective Repository Date:2018-08-03 07/25/2018 GLORIA D Primary GLORIA D [place] [id number] Insurance:ANTHEM GRASSMANDOB: Community [facility] [id number], [place] ADVANTAPolicy Number: Repository [id number]: 330 [id number] [phone] Date:2672-74-76YK [address] [place] [address]ZU: 07/25/2018 Secondary NOT GIVENUNK [place] Insurance:SELF PAY [facility] Number: Effective Repository Date:2018-07-25 07/17/2018 GLORIA D Primary GLORIA D [place] [id number] Insurance:ANTHEM GRASSMANDOB: Community [facility] [id number], [place] ADVANTAPolicy Number: Repository [id number]: (330) [id number] [phone] (HP) Date:0107-66-94SM [address]BIMFOBX [place] [address]DW: 07/17/2018 Secondary NOT GIVENUNK [place] Insurance:SELF PAY [facility] Number: Effective Repository Date:2018-07-17 05/16/2018 GLORIA D Primary GLORIA D [place] [id number] Insurance:ANTHEM GRASSMANDOB: Community [facility] [id number], [place] ADVANTAPolicy Number: Repository [id number]: (330 [id number] [phone] (HP) Date:6209-79-88AE [address] [place] [address] [place] [address]PP: 05/16/2018 Secondary NOT GIVENUNK [place] Insurance:SELF PAY [facility] Number: Effective Repository Date:2018-03-09 05/16/2018 GLORIA D Primary GLORIA D [place] [id number] Insurance:ANTHEM GRASSMANDOB: Community [facility] [id number], [place] ADVANTAPolicy Number: Repository [id number]: (330 [id number] [phone] (HP) Date:1686-41-62LA [address] [place] [address] [place] 1930[address]BE: 05/16/2018 Secondary NOT GIVENUNK [place] Insurance:SELF PAY [facility] Number: Effective Repository Date:2018-05-16 04/17/2018 GLORIA D Primary GLORIA D [place] [id number] Insurance:ANTHEM GRASSMANDOB: Community [facility] [id number], [place] ADVANTAPolicy Number: Repository [id number]: (330 [id number] [phone] (HP) Date:0730-53-33YP [address]VXXZQLI, [place] [address]PA: 04/17/2018 Secondary NOT GIVENUNK [place] Insurance:SELF PAY [facility] Number: Effective Repository Date:2018-04-17 04/03/2018 GLORIA D Primary GLORIA D [place] [id number] Insurance:ANTHEM GRASSMANDOB: Community [facility] [id number], [place] ADVANTAPolicy Number: Repository [id number]: (330) [id number] [phone] (HP) Date:5536-16-22RV [address]NXVLVQU [place] [address]LA: 04/03/2018 Secondary NOT GIVENUNK [place] Insurance:SELF PAY [facility] Number: Effective Repository Date:2018-02-22 01/16/2018 GLORIA D Primary GLORIA D [place] [id number] Insurance:ANTHEM GRASSMANDOB: Community [facility] [id number], [place] ADVANTAPolicy Number: Repository [id number]: (330 [id number] [phone] (HP) Date:4191-48-72OX [address]OKRVJUH [place] [address]TH: 01/16/2018 Secondary NOT GIVENUNK [place] Insurance:SELF PAY [facility] Number: Effective Repository Date:2017-11-09 01/10/2018 GLORIA D Primary GLORIA D [place] [id number] Insurance:ANTHEM GRASSMANDOB: Community [facility] [id number], [place] ADVANTAPolicy Number: Repository [id number]: (330 [id number] [phone] (HP) Date:6429-95-37NZ [address]UOZJMWO [place] [address]RY: 01/10/2018 Secondary NOT GIVENUNK [place] Insurance:SELF PAY [facility] Number: Effective Repository Date:2018-01-10 12/07/2017 GLORIA D Primary GLORIA D [place] [id number] Insurance:ANTHEM GRASSMANDOB: Community [facility] [id number], [place] ADVANTAPolicy Number: Repository [id number]: (330) [id number] [phone] () Date:4273-96-30ST [address]QVOOLPK, [place] [address]CR: 12/07/2017 Secondary NOT GIVENUNK [place] Insurance:SELF PAY [facility] Number: Effective Repository Date:2016-11-21 12/07/2017 GLORIA D Primary GLORIA D [place] [id number] Insurance:ANTHEMPolic GRASSMANDOB: Community [facility] y Number: [id number], [place] [id number] Repository [address]Kiv: (330) Date:6778-75-74XT [phone] () 580[address]MCQDADG, [place] [address]EO: 12/07/2017 Secondary NOT GIVENUNK [place] Insurance:SELF PAY [facility] Number: Effective Repository Date:2017-12-07 11/21/2017 GLORIA D Primary Insurance:MMO GLORIA D [place] [id number] [facility] GRASSMANDOB: [facility] Number: [id number], [place] [id number] Repository [address]Qhr: 330) Date:1495-27-04MA [phone] () [address], [place] [address]WV: 11/21/2017 Secondary NOT GIVENUNK [place] Insurance:SELF PAY [facility] Number: Effective Repository Date:2017-08-13 11/14/2017 GLORIA D Primary GLORIA D [place] [id number] Insurance:ANTHEM GRASSMANDOB: Community [facility] [id number], [place] ADVANTAPolicy Number: Repository [id number]: 330 [id number] [phone] () Date:8450-69-33YH [address] [place] [address]TK: 11/14/2017 Secondary NOT GIVENUNK [place] Insurance:SELF PAY [facility] Number: Effective Repository Date:2017-10-11 10/14/2017 GLORIA D Primary GLORIA D [place] [id number] Insurance:ANTHEM GRASSMANDOB: Community [facility] [id number], [place] ADVANTAPolicy Number: Repository [id number]: (330 [id number] [phone] (HP) Date:5636-41-50HW [address]JBHFDHG, [place] [address]TY: 10/14/2017 Secondary NOT GIVENUNK [place] Insurance:SELF PAY [facility] Number: Effective Repository Date:2017-10-14 10/10/2017 GLORIA D Primary GLORIA D [place] [id number] Insurance:ANTHEM GRASSMANDOB: Community [facility] [id number], [place] ADVANTAPolicy Number: Repository [id number]: (330 [id number] [phone] (HP) Date:4662-41-19UU [address]JXPRGXT, [place] [address]MN: 10/10/2017 Secondary NOT GIVENUNK [place] Insurance:SELF PAY [facility] Number: Effective Repository Date:2017-10-10 10/09/2017 GLORIA D Primary GLORIA D [place] [id number] Insurance:ANTHEM GRASSMANDOB: Community [facility] [id number], [place] ADVANTAPolicy Number: Repository [id number]: (330) [id number] [phone] (HP) Date:7895-77-83NA [address]PAAWPQJ [place] [address]LP: 10/09/2017 Secondary NOT GIVENUNK [place] Insurance:SELF PAY [facility] Number: Effective Repository Date:2017-10-09 09/29/2017 GLORIA D Primary GLORIA D [place] [id number] Insurance:ANTHEM GRASSMANDOB: Community [facility] [id number], [place] ADVANTAPolicy Number: Repository [id number]: (330) Effective [phone] (HP) Date:[id number], [place] [address]HR: 09/29/2017 Secondary NOT GIVENUNK Pedrito Insurance:SELF PAY [facility] Number: Effective Repository Date:2017-08-06 SOCIAL HISTORY SOCIAL HISTORY No Social History Records FoundFAMILY HISTORY FAMILY HISTORY No Family History Records FoundADVANCE DIRECTIVES ADVANCE DIRECTIVES No Advanced Directives Records FoundINFORMATION SOURCE INFORMATION SOURCE DATE CREATED AUTHOR AUTHOR'S ORGANIZATION 09/30/2018 [facility]
== END 2018-09-25 00:06 | disposition home or self-care (01) ==
PROVIDERS: Emergency Provider Emergency Medicine; Family Provider Internal Medicine; PCP Internal Medicine
DX: S61.212A Laceration without foreign body of right middle finger without damage to nail, initial encounter (principal); S61.216A Laceration without foreign body of right little finger without damage to nail, initial encounter; I25.10 Atherosclerotic heart disease of native coronary artery without angina pectoris; E11.9 Type 2 diabetes mellitus without complications; E78.00 Pure hypercholesterolemia, unspecified; I11.0 Hypertensive heart disease with heart failure; I50.9 Heart failure, unspecified; Z79.84 Long term (current) use of oral hypoglycemic drugs; Z79.891 Long term (current) use of opiate analgesic; Z79.899 Other long term (current) drug therapy; W26.8XXA Contact with other sharp object(s), not elsewhere classified, initial encounter; Y93.K1 Activity, walking an animal; Y92.89 Other specified places as the place of occurrence of the external cause; Y99.8 Other external cause status
CPT/HCPCS: 12001; 73130; 90471; 90715; 99285

== ENCOUNTER → 2018-10-01 13:53 | Outpatient (CLI) | payer MEDICARE, SELFPAY ==
[2018-09-24 22:25] VITALS: BMI 26.9
--- NOTE | 2018-10-01 14:04 | RAD_ITS ---
STUDY: X-RAY - RIGHT ANKLE REASON FOR EXAM: Female, 78 years old. Injury. Pain. TECHNIQUE: 3 view(s) of the ankle. COMPARISON: 09/16/2018. FINDINGS: Normal visualized distal tibia and fibula. Normal medial and lateral malleoli. Normal tibiotalar articulation and ankle mortise. Normal visualized talus and calcaneus. The visualized subtalar, talonavicular, calcaneocuboid and tarsal articulations are normal. There is no demonstrated fracture. The soft tissue structures are unremarkable. RAD/Ankle min 3 Views IMPRESSION: Normal x-ray examination of the ankle. Electronically Signed: Ivan Thorne MD at 16:01 EST , Service support ,
--- NOTE | 2018-10-01 14:05 | RAD_ITS ---
STUDY: X-RAY - RIGHT FOOT CLINICAL: Female, 78 years old. Pain. Previous injury. TECHNIQUE: 3 view(s) of the foot. COMPARISON: None. FINDINGS: Normal talus, calcaneus, and tarsal bones. Normal visualized subtalar, talonavicular, calcaneocuboid, tarsal and tarsometatarsal articulations. Normal metatarsi. Normal metatarsophalangeal joint of the great toe. Normal tibial and fibular sesamoid bones. Normal interphalangeal joint of the great toe. Normal phalanges of the great toe. Normal second through fifth metatarsophalangeal joints. Normal interphalangeal joints and phalanges of the lesser toes. The soft tissue structures are unremarkable. There is no demonstrated fracture. RAD/Foot min 3 Views IMPRESSION: Normal x-ray examination of the foot. Electronically Signed: Ivan Thorne MD at 16:04 EST , Service support ,
== END ==
PROVIDERS: Family Provider Internal Medicine; PCP Internal Medicine; Referring Provider Internal Medicine; Visit Provider Internal Medicine
DX: M25.571 Pain in right ankle and joints of right foot (principal)
CPT/HCPCS: 73610; 73630

== ENCOUNTER 2018-11-16 15:16 | Emergency (ER) | payer MEDICARE, SELFPAY ==
[2018-10-09 11:36] VITALS: BMI 26.2
[2018-11-16] VITALS (8 sets, daily range): BP systolic 133–163; BP diastolic 75–124; PULSE 60–131; RESP 14–21; TEMP 36.6; O2SAT 97–100; BMI 25.4
--- NOTE | 2018-11-16 15:27 | ED.VIS.GEN ---
History of Present Illness Chief Complaint: Palpitations Detail of Chief Complaint: Onset 30-120 minutes ago Informant: Patient Onset: Today Context: Sudden Onset Timing: Continuous Quality: Palpitations, lightheadedness, vague sense of illness Location: Not applicable Current Severity: Mild Maximum Severity: Moderate Worsened by: Nothing per patient Relieved by: Nothing per patient Associated Symptoms: Previously documented Narrative: Patient is an elderly woman whose marker shipments is Dr. Golden Kruger. She saw him approximate 1-2 weeks ago. 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 She has multiple medical problems. She is presently on Xarelto. She states she has not eaten since last evening. She states she is compliant with her medication. She denies fever, chills night sweats. She denies ocular, visual auditory symptoms. She denies anginal symptoms or anginal equivalent symptoms. She denies nausea, vomiting, maroon or black stool. She denies bruising easily. She denies hematuria. She denies neurologic symptoms. - Past Medical History (1) Atrial fibrillation with RVR Status: Acute (2) AV junctional bradycardia Status: Chronic (3) Acute on chronic diastolic (congestive) heart failure Status: Chronic (4) Anxiety Status: Chronic (5) Atherosclerotic heart disease of [place] coronary artery without angina pectoris Status: Chronic Comment: Per [facility] 01/18/2010 Dr. Gonzalez @ [facility]: 10-20% stenosis in mid and ostial LAD, in ramus intermedius; 10% in circumflex, 10% proximal stenosis in first OM (6) DM II (diabetes mellitus, type II), controlled Status: Chronic (7) Depression Status: Chronic (8) Dyslipidemia Status: Chronic (9) HTN (hypertension) Status: Chronic (10) Hyperlipidemia Status: Chronic (11) Presence of permanent cardiac pacemaker Status: Chronic Comment: 07/13/15, [facility] (12) Pulmonary hypertension Status: Chronic (13) Tricuspid regurgitation Status: Chronic Past Medical History - Allergies and Home Meds Allergies/Adverse Reactions: Allergies hydralazine Adverse Reaction (Severe, Verified 11/16/18 15:21) Itching amlodipine besylate [From Norvasc] Adverse Reaction (Intermediate, Verified 11/16/18 15:21) Itching Primary Care Physician: Golden Kruger MD [STAFF PHYSICIAN] - Nafisa Chawla DO [Primary Care Provider] - Prior records reviewed: Yes Past Medical History: - - History of paroxysmal atrial fibrillation Surgical History: appendectomy, cataract - She has had bilateral cataract extraction with intraocular lens implant., hysterectomy - Patient states that she still has her ovaries and the hysterectomy was done for dysfunctional uterine bleeding., - - Surgery on the right knee to repair her meniscus. Lives: Alone Smoking Status: Never smoker Alcohol: None - Family History Paternal Family History: Family History (Last Reviewed 10/09/18 @ 11:48 by Golden Kruger MD) Sister Diabetes Hypertension Father Heart disease Hypertension Myocardial infarction Mother Cancer Family History: Reports: Heart Disease, Hypertension, Stroke Maternal Family History: Family History (Last Reviewed 10/09/18 @ 11:48 by Golden Kruger MD) Sister Diabetes Hypertension Father Heart disease Hypertension Myocardial infarction Mother Cancer Family History: Reports: Stroke - in maternal CVA, - - mother of lung CA Sibling Family History: Family History (Last Reviewed 10/09/18 @ 11:48 by Golden Kruger MD) Sister Diabetes Hypertension Father Heart disease Hypertension Myocardial infarction Mother Cancer Family History: Reports: - - she has a younger sister who had a stroke from a AVM in the brain Review of Systems General: Denies: Chills, Fever, Sweats Eyes: Denies: Visual changes - bilaterally, Diplopia ENT: Denies: Rhinorrhea, Sore throat Cardiovascular: Denies: Chest pain, Palpitations, Heart racing Respiratory: Denies: Dyspnea, Cough, Dyspnea on exertion Gastrointestinal: Denies: Abdominal pain, Nausea, Vomiting, Diarrhea, Melena, Hematochezia Genitourinary: Denies: Dysuria, Hematuria, Frequency Musculoskeletal: Denies: Back pain, Extremity Pain Skin: Denies: Rash, Wounds Neurological: Reports: Weakness. Denies: Headache, Numbness Psych: Reports: Depression, Anxiety Endocrine: Denies: Polyuria, Polydipsia, Heat intolerance, Cold intolerance Hematologic: Denies: Easy bruising, Easy bleeding Physical Exam Vital Signs/Narrative: Vital Signs Temp Pulse Resp BP Pulse Ox 11/16/18 15:17 97.8 F 123 H 19 H 158/124 H 97 Inital Vital Signs reviewed: Yes General: Well nourished, Well developed, No Acute Distress Head: Normocephalic, Atraumatic Eyes: Perrl, EOMI. Negative for: Pale conjunctiva, Scleral icterus ENT: Moist mucous membranes, No rhinorrhea Neck: Supple, Nontender. Negative for: No lymphadenopathy, No JVD Cardiovascular: Irregular, Tachycardia Respiratory: No distress, CTA bilaterally, Chest nontender. Negative for: Decreased Air Movement Abdomen: Soft, Nontender, Nondistended, Normal bowel sounds, No masses Back: Nontender, Normal Inspection Extremities: Nontender, No edema. Negative for: Calf Tenderness Skin: Normal color, No rash. Negative for: Cyanosis, Diaphoresis, Jaundice, No Trauma Neurological: Alert, Oriented x3, Cranial nerves II-XII grossly intact, Normal Strength, Normal Sensation Psychological: Normal Mood Diagnostic/Tx/Re-eval Laboratory Results 11/16/18 11/16/18 15:56 15:56 WBC 5.4 RBC 4.11 L Hgb 11.8 L Hct 37.2 MCV 90.5 MCH 28.7 MCHC 31.7 L RDW 14.4 RDW Differential 47.0 H Plt Count 282 MPV 10.4 Sodium 143 Potassium 4.1 Chloride 107 Carbon Dioxide 29.0 Anion Gap 7 BUN 34 H Creatinine 1.42 H Estim Creat Clear Calc 28.65 Est GFR (MDRD) Af Amer 46 L Est GFR (MDRD) Non-Af 38 L BUN/Creatinine Ratio 23.9 H Glucose 115 H Calcium 9.9 - EKG Initial EKG Interpretation: Atrial Fibrillation - Ventricular rate is 110. There is no ossific ST-T wave changes noted. This may be rate dependent. There is an occasional aberrant beats versus premature ventricular beat. Follow-up EKG Interpretation: Sinus Rhythm - Ventricular rate is 60. DE interval, Q hoahaoism QT interval and axis are normal. There appears to be evidence of right atrial enlargement. Prior: Changed - Medical Decision Making Since patient is on anticoagulant and knows the onset of her symptoms recommended cardioversion. She requested that I speak with Dr. Kruger for a second opinion. Dr. Swetha Kruger was paged. Patient was placed on monitor. Will obtain electrolyte panel and CBC. Case was discussed with Dr. Kavon Reece. He recommended having the pacemaker interrogated after cardioversion. Patient was informed that marker shipments agreed with my assessment and plan. She was informed of risk benefits of deep procedural sedation with propofol and cardioversion. She was given an opportunity to ask questions none were asked. I was informed by Kati who interrogated pacemaker from Dr. Kruger's office that the pacemaker is functioning properly. Procedures Procedure(s): 1. Deep sedation using propofol (total procedure time 6 minutes). 2. Cardioversion 100 J successful first attempt new line. 3. Gloria from Dr. Kruger's office was paged to interrogate pacemaker status post cardioversion. ED Disposition - Plan for ED Patient: Disposition: Home or Assisted Living Instructions: ED Paroxysmal Atrial Flutter, ED Cardioversion Electrical, ED Sedation Procedural Discon Referrals: Nafisa Chawla DO [Primary Care Provider] - Golden Krguer MD [STAFF PHYSICIAN] - Additional Instructions: Dr. Kruger's casting repairer will contact you on Monday to arrange for follow-up next week.
--- NOTE | 2018-11-16 15:31 | ED.DCSUM_ITS ---
History of Present Illness Chief Complaint: Palpitations Detail of Chief Complaint: Onset 30-120 minutes ago Informant: Patient Onset: Today Context: Sudden Onset Timing: Continuous Quality: Palpitations, lightheadedness, vague sense of illness Location: Not applicable Current Severity: Mild Maximum Severity: Moderate Worsened by: Nothing per patient Relieved by: Nothing per patient Associated Symptoms: Previously documented Narrative: Patient is an elderly woman whose cartoon artist is Dr. Golden Kruger. She saw him approximate 1-2 weeks ago. 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 She has multiple medical problems. She is presently on Xarelto. She states she has not eaten since last evening. She states she is compliant with her medication. She denies fever, chills night sweats. She denies ocular, visual auditory symptoms. She denies anginal symptoms or anginal equivalent symptoms. She denies nausea, vomiting, maroon or black stool. She denies bruising easily. She denies hematuria. She denies neurologic symptoms. - Past Medical History (1) Atrial fibrillation with RVR Status: Acute (2) AV junctional bradycardia Status: Chronic (3) Acute on chronic diastolic (congestive) heart failure Status: Chronic (4) Anxiety Status: Chronic (5) Atherosclerotic heart disease of [place] coronary artery without angina pectoris Status: Chronic Comment: Per [facility] 01/18/2010 Dr. Gonzalez @ [facility]: 10-20% stenosis in mid and ostial LAD, in ramus intermedius; 10% in circumflex, 10% proximal stenosis in first OM (6) DM II (diabetes mellitus, type II), controlled Status: Chronic (7) Depression Status: Chronic (8) Dyslipidemia Status: Chronic (9) HTN (hypertension) Status: Chronic (10) Hyperlipidemia Status: Chronic (11) Presence of permanent cardiac pacemaker Status: Chronic Comment: 07/13/15, [facility] (12) Pulmonary hypertension Status: Chronic (13) Tricuspid regurgitation Status: Chronic Past Medical History - Allergies and Home Meds Allergies/Adverse Reactions: Allergies hydralazine Adverse Reaction (Severe, Verified 11/16/18 15:21) Itching amlodipine besylate [From Norvasc] Adverse Reaction (Intermediate, Verified 11/16/18 15:21) Itching Primary Care Physician: Golden Kruger MD [STAFF PHYSICIAN] - Nafisa Chawla DO [Primary Care Provider] - Prior records reviewed: Yes Past Medical History: - - History of paroxysmal atrial fibrillation Surgical History: appendectomy, cataract - She has had bilateral cataract extraction with intraocular lens implant., hysterectomy - Patient states that she still has her ovaries and the hysterectomy was done for dysfunctional uterine bleeding., - - Surgery on the right knee to repair her meniscus. Lives: Alone Smoking Status: Never smoker Alcohol: None - Family History Paternal Family History: Family History (Last Reviewed 10/09/18 @ 11:48 by Golden Kruger MD) Sister Diabetes Hypertension Father Heart disease Hypertension Myocardial infarction Mother Cancer Family History: Reports: Heart Disease, Hypertension, Stroke Maternal Family History: Family History (Last Reviewed 10/09/18 @ 11:48 by Golden Kruger MD) Sister Diabetes Hypertension Father Heart disease Hypertension Myocardial infarction Mother Cancer Family History: Reports: Stroke - in maternal CVA, - - mother of lung CA Sibling Family History: Family History (Last Reviewed 10/09/18 @ 11:48 by Golden Kruger MD) Sister Diabetes Hypertension Father Heart disease Hypertension Myocardial infarction Mother Cancer Family History: Reports: - - she has a younger sister who had a stroke from a AVM in the brain Review of Systems General: Denies: Chills, Fever, Sweats Eyes: Denies: Visual changes - bilaterally, Diplopia ENT: Denies: Rhinorrhea, Sore throat Cardiovascular: Denies: Chest pain, Palpitations, Heart racing Respiratory: Denies: Dyspnea, Cough, Dyspnea on exertion Gastrointestinal: Denies: Abdominal pain, Nausea, Vomiting, Diarrhea, Melena, Hematochezia Genitourinary: Denies: Dysuria, Hematuria, Frequency Musculoskeletal: Denies: Back pain, Extremity Pain Skin: Denies: Rash, Wounds Neurological: Reports: Weakness. Denies: Headache, Numbness Psych: Reports: Depression, Anxiety Endocrine: Denies: Polyuria, Polydipsia, Heat intolerance, Cold intolerance Hematologic: Denies: Easy bruising, Easy bleeding Physical Exam Vital Signs/Narrative: Vital Signs Temp Pulse Resp BP Pulse Ox 11/16/18 15:17 97.8 F 123 H 19 H 158/124 H 97 Inital Vital Signs reviewed: Yes General: Well nourished, Well developed, No Acute Distress Head: Normocephalic, Atraumatic Eyes: Perrl, EOMI. Negative for: Pale conjunctiva, Scleral icterus ENT: Moist mucous membranes, No rhinorrhea Neck: Supple, Nontender. Negative for: No lymphadenopathy, No JVD Cardiovascular: Irregular, Tachycardia Respiratory: No distress, CTA bilaterally, Chest nontender. Negative for: Decreased Air Movement Abdomen: Soft, Nontender, Nondistended, Normal bowel sounds, No masses Back: Nontender, Normal Inspection Extremities: Nontender, No edema. Negative for: Calf Tenderness Skin: Normal color, No rash. Negative for: Cyanosis, Diaphoresis, Jaundice, No Trauma Neurological: Alert, Oriented x3, Cranial nerves II-XII grossly intact, Normal Strength, Normal Sensation Psychological: Normal Mood Diagnostic/Tx/Re-eval Laboratory Results 11/16/18 11/16/18 15:56 15:56 WBC 5.4 RBC 4.11 L Hgb 11.8 L Hct 37.2 MCV 90.5 MCH 28.7 MCHC 31.7 L RDW 14.4 RDW Differential 47.0 H Plt Count 282 MPV 10.4 Sodium 143 Potassium 4.1 Chloride 107 Carbon Dioxide 29.0 Anion Gap 7 BUN 34 H Creatinine 1.42 H Estim Creat Clear Calc 28.65 Est GFR (MDRD) Af Amer 46 L Est GFR (MDRD) Non-Af 38 L BUN/Creatinine Ratio 23.9 H Glucose 115 H Calcium 9.9 - EKG Initial EKG Interpretation: Atrial Fibrillation - Ventricular rate is 110. There is no ossific ST-T wave changes noted. This may be rate dependent. There is an occasional aberrant beats versus premature ventricular beat. Follow-up EKG Interpretation: Sinus Rhythm - Ventricular rate is 60. AR interval, Q scientologist QT interval and axis are normal. There appears to be evidence of right atrial enlargement. Prior: Changed - Medical Decision Making Since patient is on anticoagulant and knows the onset of her symptoms recommended cardioversion. She requested that I speak with Dr. Kruger for a second opinion. Dr. Swetha Kruger was paged. Patient was placed on monitor. Will obtain electrolyte panel and CBC. Case was discussed with Dr. Kavon Reece. He recommended having the pacemaker interrogated after cardioversion. Patient was informed that cartoon artist agreed with my assessment and plan. She was informed of risk benefits of deep procedural sedation with propofol and cardioversion. She was given an opportunity to ask questions none were asked. I was informed by Kati who interrogated pacemaker from Dr. Kruger's office that the pacemaker is functioning properly. Procedures Procedure(s): 1. Deep sedation using propofol (total procedure time 6 minutes). 2. Cardioversion 100 J successful first attempt new line. 3. Gloria from Dr. Kruger's office was paged to interrogate pacemaker status post cardioversion. ED Disposition - Plan for ED Patient: Disposition: Home or Assisted Living Instructions: ED Paroxysmal Atrial Flutter, ED Cardioversion Electrical, ED Sedation Procedural Discon Referrals: Nafisa Chawla DO [Primary Care Provider] - Golden Kruger MD [STAFF PHYSICIAN] - Additional Instructions: Dr. Kruger's director of golf will contact you on Monday to arrange for follow-up next week.
--- NOTE | 2018-11-16 15:33 | EKG12_ITS ---
Test Reason : REPEAT EKG Blood Pressure : / mmHG Vent. Rate : 060 BPM Atrial Rate : 060 BPM P-R Int : 178 ms QRS Dur : 084 ms QT Int : 454 ms P-R-T Axes : 007 015 076 degrees QTc Int : 454 ms Atrial Rhythm Right atrial enlargement Nonspecific ST abnormality Abnormal ECG Confirmed by MICHAEL ACKERMAN ([id number]), film editor supervisor SURI VAZQUEZ ([id number] on 11/19/2018 4:39:52 PM Referred By: Roel Ha Confirmed By:MICHAEL ACKERMAN
[2018-11-16 16:04] LABS: Hematocrit 37.2 % (37-47); Hemoglobin 11.8 g/dl (12.0-15.0); Mean Corp Hgb Conc 31.7 g/gl (32-36); Mean Corpuscular Hgb 28.7 pg (27.0-32.0); Mean Corpuscular Volume 90.5 fL (81-99); Mean Platelet Vol. 10.4 fl (6.2-12.0); Platelet Count 282 K/mm3 (150-450); RBC Distribution Width CV 14.4 % (11.6-14.6); Red Blood Count 4.11 M/mm3 (4.2-5.4); White Blood Count 5.4 K/mm3 (4.4-11.0)
[2018-11-16 16:06] LABS: Scan Indicated on CBC? Y/N NO
[2018-11-16 16:17] LABS: Anion Gap 7 (5-15); BUN 34 mg/dL (7-18); BUN/Creat Ratio 23.9 RATIO (10-20); Calcium,Total 9.9 mg/dL (8.5-10.1); Chloride 107 mmol/L (98-107); Creatinine, Serum 1.42 mg/dL (0.55-1.02); EST Glomerular Filtration Rate 38 mL/min (>60); Est Glom Filt Rate - Afr Amer 46 mL/min (>60); Estimated Creatinine Clearance 28.65 ml/min; Glucose 115 mg/dL (74-106); Potassium 4.1 mmol/L (3.5-5.1); Sodium Level 143 mmol/L (136-145)
--- NOTE | 2018-11-16 16:20 | EKG12_ITS ---
Test Reason : PALPITATIONS Blood Pressure : / mmHG Vent. Rate : 110 BPM Atrial Rate : 122 BPM P-R Int : 000 ms QRS Dur : 082 ms QT Int : 316 ms P-R-T Axes : 000 004 114 degrees QTc Int : 427 ms Atrial fibrillation with rapid ventricular response with occasional ventricular-paced complexes ST & T wave abnormality, consider lateral ischemia Abnormal ECG Confirmed by MICHAEL ACKERMAN ([id number]), technical writer and editor SURI VAZQUEZ ([id number] on 11/19/2018 4:40:22 PM Referred By: Roel Ha Confirmed By:MICHAEL ACKERMAN
[2018-11-16] MEDS: Propofol 200 MG/20 ML Vial IV BOLUS (16:33)
== END 2018-11-16 18:10 | disposition home or self-care (01) ==
PROVIDERS: Emergency Provider Emergency Medicine; Family Provider Internal Medicine; PCP Internal Medicine
DX: I48.92 Unspecified atrial flutter (principal); I48.91 Unspecified atrial fibrillation; I11.0 Hypertensive heart disease with heart failure; I50.33 Acute on chronic diastolic (congestive) heart failure; F41.9 Anxiety disorder, unspecified; I25.10 Atherosclerotic heart disease of native coronary artery without angina pectoris; E11.9 Type 2 diabetes mellitus without complications; F32.9 Major depressive disorder, single episode, unspecified; E78.5 Hyperlipidemia, unspecified; I27.20 Pulmonary hypertension, unspecified; I07.1 Rheumatic tricuspid insufficiency; Z95.0 Presence of cardiac pacemaker; Z79.02 Long term (current) use of antithrombotics/antiplatelets; Z79.84 Long term (current) use of oral hypoglycemic drugs; Z79.899 Other long term (current) drug therapy
CPT/HCPCS: 80048; 85027; 92960; 93005; 96374; 99284; J7030; A4216

== ENCOUNTER 2018-11-22 11:00 | Emergency (ER) | payer MEDICARE, SELFPAY ==
[2018-11-16 15:17] VITALS: BMI 25.4
[2018-11-22 11:01] VITALS: BP 160/94; PULSE 126; PULSE 143; RESP 13; RESP 17; TEMP 36.6; O2SAT 97; O2SAT 98; BMI 24.5
[2018-11-22 11:07] VITALS: O2SAT 98
--- NOTE | 2018-11-22 11:12 | EKG12_ITS ---
Test Reason : PALPS Blood Pressure : / mmHG Vent. Rate : 122 BPM Atrial Rate : 178 BPM P-R Int : 000 ms QRS Dur : 082 ms QT Int : 344 ms P-R-T Axes : 000 012 196 degrees QTc Int : 490 ms Suspect unspecified pacemaker failure Atrial fibrillation with rapid ventricular response with premature ventricular or aberrantly conducte d complexes Marked ST abnormality, possible lateral subendocardial injury Abnormal ECG Confirmed by EDUARDO FERGUSON, TREY ([id number]), editor magazine CHAU JOSHI ([id number]) on 11/26/2018 11:38:48 AM Referred By: Roel Ha Confirmed By:TERY CLARK MD
--- NOTE | 2018-11-22 11:14 | ED.VIS.GEN ---
History of Present Illness Chief Complaint: Shortness of Breath Detail of Chief Complaint: Palpitations Informant: Patient Onset: Today Context: Sudden Onset Timing: Continuous Quality: Fast irregular heartbeat Location: Chest Current Severity: Mild Maximum Severity: Moderate Worsened by: Activity Relieved by: Nothing Associated Symptoms: Lightheadedness Narrative: Patient is an elderly woman with known history of paroxysmal atrial fibrillation on Xarelto. She was seen on Monday and underwent cardioversion. She is on flecainide. She denies black or maroon stool. She denies fever, chills night sweats. Denies ocular, visual auditory symptoms. She denies chest tightness, pressure or heaviness. She denies nausea, vomiting. She denies urologic symptoms. - Past Medical History (1) Atrial fibrillation with RVR Status: Acute (2) Syncope and collapse Status: Acute (3) Abnormal thyroid function test Status: Chronic (4) Acute on chronic diastolic (congestive) heart failure Status: Chronic (5) Atherosclerotic heart disease of [place] coronary artery without angina pectoris Status: Chronic Comment: Per [facility] 01/18/2010 Dr. Gonzalez @ [facility]: 10-20% stenosis in mid and ostial LAD, in ramus intermedius; 10% in circumflex, 10% proximal stenosis in first OM (6) DM II (diabetes mellitus, type II), controlled Status: Chronic (7) Dyslipidemia Status: Chronic (8) HTN (hypertension) Status: Chronic (9) Mitral regurgitation Status: Chronic (10) Presence of permanent cardiac pacemaker Status: Chronic Comment: 07/13/15, [facility] (11) Pulmonary hypertension Status: Chronic Past Medical History - Allergies and Home Meds Allergies/Adverse Reactions: Allergies hydralazine Adverse Reaction (Severe, Verified 11/22/18 11:01) Itching amlodipine besylate [From Norvas] Adverse Reaction (Intermediate, Verified 11/22/18 11:01) Itching Primary Care Physician: Nafisa Chawla DO [Primary Care Provider] - Prior records reviewed: Yes Surgical History: appendectomy, cataract - She has had bilateral cataract extraction with intraocular lens implant., hysterectomy - Patient states that she still has her ovaries and the hysterectomy was done for dysfunctional uterine bleeding., - - Surgery on the right knee to repair her meniscus. Lives: Alone Smoking Status: Never smoker Alcohol: None Drugs: None - Family History Paternal Family History: Family History (Last Reviewed 10/09/18 @ 11:48 by Golden Kruger MD) Sister Diabetes Hypertension Father Heart disease Hypertension Myocardial infarction Mother Cancer Family History: Reports: Heart Disease, Hypertension, Stroke Maternal Family History: Family History (Last Reviewed 10/09/18 @ 11:48 by Golden Kruger MD) Sister Diabetes Hypertension Father Heart disease Hypertension Myocardial infarction Mother Cancer Family History: Reports: Stroke - in maternal CVA, - - mother of lung CA Sibling Family History: Family History (Last Reviewed 10/09/18 @ 11:48 by Golden Kruger MD) Sister Diabetes Hypertension Father Heart disease Hypertension Myocardial infarction Mother Cancer Family History: Reports: - - she has a younger sister who had a stroke from a AVM in the brain Review of Systems General: Denies: Chills, Fever, Sweats Eyes: Denies: Visual changes - bilaterally, Blurred Vision - bilaterally, Diplopia ENT: Denies: Bilateral ear pain, Rhinorrhea, Sore throat Cardiovascular: Reports: Palpitations, Heart racing Respiratory: Reports: Dyspnea, Dyspnea on exertion. Denies: Cough, Sputum, Orthopnea, Paroxysmal nocturnal dyspnea Gastrointestinal: Denies: Abdominal pain, Nausea, Vomiting, Diarrhea, Melena, Hematochezia Genitourinary: Denies: Dysuria, Hematuria, Frequency Musculoskeletal: Denies: Back pain, Extremity Pain Skin: Denies: Rash, Wounds Neurological: Reports: Weakness Hematologic: Reports: Easy bruising Allergy: Denies: Uticaria Physical Exam Vital Signs/Narrative: Vital Signs Temp Pulse Resp BP Pulse Ox 11/22/18 11:01 97.8 F 143 H 13 160/94 H 98 Inital Vital Signs reviewed: Yes General: Well nourished, Well developed, No Acute Distress Head: Normocephalic, Atraumatic Eyes: Perrl, EOMI. Negative for: Pale conjunctiva, Scleral icterus ENT: Moist mucous membranes, No rhinorrhea Neck: Supple, Nontender, No lymphadenopathy, No JVD Cardiovascular: Irregular, Tachycardia Respiratory: No distress, Rales - Bibasilar rales Abdomen: Soft, Nontender, Nondistended, Normal bowel sounds Back: Nontender, Normal Inspection Extremities: Nontender, No edema Skin: Normal color, No rash Neurological: Alert, Oriented x3, Cranial nerves II-XII grossly intact, Normal Strength, Normal Sensation, Normal Gait Psychological: Normal affect, Normal Mood Diagnostic/Tx/Re-eval Impressions Chest X-Ray 11/22/18 11:15 IMPRESSION: No acute cardiopulmonary findings Electronically Signed: Kvng Perez DO at 11:34 EDT Tel , Service support , 11/22/18 11:15 Chest 1 View (Portable) [RAD] Stat - EKG Initial EKG Interpretation: Atrial Fibrillation - Ventricular rate is 122. There are premature ventricular beats versus a variant beats noted. QRS duration normal. QT interval normal. [place] normal. There are ST-T wave changes noted which is either artifact since the baseline is wandering or rate dependent. 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 Kruger is investor relations director. Discussed case with him. He recommends cardioversion, increasing flecainide 250 mg twice daily and dose of IV Lasix. At 1 1: 3 0 patient was informed plan is to cardiovert. Patient spontaneously converted to a sinus rhythm. She states she is on 50 mg of flecainide not 100 mg. She was instructed to increase flecainide to 100 mg twice a day. Will await results of tests ordered. If there is no interval change she will be discharged to home to follow-up with Dr. Kruger. Since chest x-ray does not reveal evidence of failure will discharge to home. Patient was instructed to increase flecainide from 50 mg twice a day to 100 mg twice a day and contact Dr. Kruger's office for follow-up. ED Disposition - Plan for ED Patient: Disposition: Home or Assisted Living Diagnosis: Paroxysmal atrial fibrillation with RVR, Abnormal thyroid function test, Acute on chronic diastolic (congestive) heart failure, DM II (diabetes mellitus, type II), controlled, Depression, HTN (hypertension), Dyslipidemia Instructions: ED Afib Referrals: Nafisa Chawla DO [Primary Care Provider] - Golden Kruger MD [STAFF PHYSICIAN] - 3-5 Days Additional Instructions: Increase flecainide to grams twice daily from 50 mg twice daily.
--- NOTE | 2018-11-22 11:15 | RAD_ITS ---
STUDY: X-RAY CHEST REASON FOR EXAM: Female, 78 years old. Bibasilar rales. TECHNIQUE: Single AP portable view of the chest. COMPARISON: July 17, 2018. FINDINGS: Left-sided cardiac device in position. Cardiac silhouette unremarkable. Pulmonary vascularity unremarkable. Aorta unremarkable. No focal patchy airspace opacities. No pleural effusions. Upper abdomen unremarkable. Osseous structures are demineralized. No pneumothorax. Degenerative changes at the shoulders and spine. RAD/Chest 1 View (Portable) IMPRESSION: No acute cardiopulmonary findings Electronically Signed: Kvng Perez DO at 11:34 EDT Tel , Service support ,
--- NOTE | 2018-11-22 11:18 | ED.DCSUM_ITS ---
History of Present Illness Chief Complaint: Shortness of Breath Detail of Chief Complaint: Palpitations Informant: Patient Onset: Today Context: Sudden Onset Timing: Continuous Quality: Fast irregular heartbeat Location: Chest Current Severity: Mild Maximum Severity: Moderate Worsened by: Activity Relieved by: Nothing Associated Symptoms: Lightheadedness Narrative: Patient is an elderly woman with known history of paroxysmal atrial fibrillation on Xarelto. She was seen on Monday and underwent cardioversion. She is on flecainide. She denies black or maroon stool. She denies fever, chills night sweats. Denies ocular, visual auditory symptoms. She denies chest tightness, pressure or heaviness. She denies nausea, vomiting. She denies urologic symptoms. - Past Medical History (1) Atrial fibrillation with RVR Status: Acute (2) Syncope and collapse Status: Acute (3) Abnormal thyroid function test Status: Chronic (4) Acute on chronic diastolic (congestive) heart failure Status: Chronic (5) Atherosclerotic heart disease of [place] coronary artery without angina pectoris Status: Chronic Comment: Per [facility] 01/18/2010 Dr. Gonzalez @ [facility]: 10-20% stenosis in mid and ostial LAD, in ramus intermedius; 10% in circumflex, 10% proximal stenosis in first OM (6) DM II (diabetes mellitus, type II), controlled Status: Chronic (7) Dyslipidemia Status: Chronic (8) HTN (hypertension) Status: Chronic (9) Mitral regurgitation Status: Chronic (10) Presence of permanent cardiac pacemaker Status: Chronic Comment: 07/13/15, [facility] (11) Pulmonary hypertension Status: Chronic Past Medical History - Allergies and Home Meds Allergies/Adverse Reactions: Allergies hydralazine Adverse Reaction (Severe, Verified 11/22/18 11:01) Itching amlodipine besylate [From Norvas] Adverse Reaction (Intermediate, Verified 11/22/18 11:01) Itching Primary Care Physician: Nafisa Chawla DO [Primary Care Provider] - Prior records reviewed: Yes Surgical History: appendectomy, cataract - She has had bilateral cataract extraction with intraocular lens implant., hysterectomy - Patient states that she still has her ovaries and the hysterectomy was done for dysfunctional uterine bleeding., - - Surgery on the right knee to repair her meniscus. Lives: Alone Smoking Status: Never smoker Alcohol: None Drugs: None - Family History Paternal Family History: Family History (Last Reviewed 10/09/18 @ 11:48 by Golden Kruger MD) Sister Diabetes Hypertension Father Heart disease Hypertension Myocardial infarction Mother Cancer Family History: Reports: Heart Disease, Hypertension, Stroke Maternal Family History: Family History (Last Reviewed 10/09/18 @ 11:48 by Golden Kruger MD) Sister Diabetes Hypertension Father Heart disease Hypertension Myocardial infarction Mother Cancer Family History: Reports: Stroke - in maternal CVA, - - mother of lung CA Sibling Family History: Family History (Last Reviewed 10/09/18 @ 11:48 by Golden Kruger MD) Sister Diabetes Hypertension Father Heart disease Hypertension Myocardial infarction Mother Cancer Family History: Reports: - - she has a younger sister who had a stroke from a AVM in the brain Review of Systems General: Denies: Chills, Fever, Sweats Eyes: Denies: Visual changes - bilaterally, Blurred Vision - bilaterally, Diplopia ENT: Denies: Bilateral ear pain, Rhinorrhea, Sore throat Cardiovascular: Reports: Palpitations, Heart racing Respiratory: Reports: Dyspnea, Dyspnea on exertion. Denies: Cough, Sputum, Orthopnea, Paroxysmal nocturnal dyspnea Gastrointestinal: Denies: Abdominal pain, Nausea, Vomiting, Diarrhea, Melena, Hematochezia Genitourinary: Denies: Dysuria, Hematuria, Frequency Musculoskeletal: Denies: Back pain, Extremity Pain Skin: Denies: Rash, Wounds Neurological: Reports: Weakness Hematologic: Reports: Easy bruising Allergy: Denies: Uticaria Physical Exam Vital Signs/Narrative: Vital Signs Temp Pulse Resp BP Pulse Ox 11/22/18 11:01 97.8 F 143 H 13 160/94 H 98 Inital Vital Signs reviewed: Yes General: Well nourished, Well developed, No Acute Distress Head: Normocephalic, Atraumatic Eyes: Perrl, EOMI. Negative for: Pale conjunctiva, Scleral icterus ENT: Moist mucous membranes, No rhinorrhea Neck: Supple, Nontender, No lymphadenopathy, No JVD Cardiovascular: Irregular, Tachycardia Respiratory: No distress, Rales - Bibasilar rales Abdomen: Soft, Nontender, Nondistended, Normal bowel sounds Back: Nontender, Normal Inspection Extremities: Nontender, No edema Skin: Normal color, No rash Neurological: Alert, Oriented x3, Cranial nerves II-XII grossly intact, Normal Strength, Normal Sensation, Normal Gait Psychological: Normal affect, Normal Mood Diagnostic/Tx/Re-eval Impressions Chest X-Ray 11/22/18 11:15 IMPRESSION: No acute cardiopulmonary findings Electronically Signed: Kvng Perez DO at 11:34 EDT Tel , Service support , 11/22/18 11:15 Chest 1 View (Portable) [RAD] Stat - EKG Initial EKG Interpretation: Atrial Fibrillation - Ventricular rate is 122. There are premature ventricular beats versus a variant beats noted. QRS duration normal. QT interval normal. [place] normal. There are ST-T wave changes noted which is either artifact since the baseline is wandering or rate dependent. 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 Kruger is electrician substation supervisor. Discussed case with him. He recommends cardioversion, increasing flecainide 250 mg twice daily and dose of IV Lasix. At 1 1: 3 0 patient was informed plan is to cardiovert. Patient spontaneously converted to a sinus rhythm. She states she is on 50 mg of flecainide not 100 mg. She was instructed to increase flecainide to 100 mg twice a day. Will await results of tests ordered. If there is no interval change she will be discharged to home to follow-up with Dr. Kruger. Since chest x-ray does not reveal evidence of failure will discharge to home. Patient was instructed to increase flecainide from 50 mg twice a day to 100 mg twice a day and contact Dr. Kruger's office for follow-up. ED Disposition - Plan for ED Patient: Disposition: Home or Assisted Living Diagnosis: Paroxysmal atrial fibrillation with RVR, Abnormal thyroid function test, Acute on chronic diastolic (congestive) heart failure, DM II (diabetes mellitus, type II), controlled, Depression, HTN (hypertension), Dyslipidemia Instructions: ED Afib Referrals: Nafisa Chawla DO [Primary Care Provider] - Golden Kruger MD [STAFF PHYSICIAN] - 3-5 Days Additional Instructions: Increase flecainide to grams twice daily from 50 mg twice daily.
[2018-11-22] MEDS: Furosemide 20 MG/2 ML VIAL IV (11:46)
[2018-11-22 12:12] VITALS: BP 127/80; PULSE 62; RESP 18; O2SAT 99
== END 2018-11-22 12:15 | disposition home or self-care (01) ==
PROVIDERS: Emergency Provider Emergency Medicine; Family Provider Internal Medicine; PCP Internal Medicine
DX: I48.91 Unspecified atrial fibrillation (principal); R94.6 Abnormal results of thyroid function studies; I11.0 Hypertensive heart disease with heart failure; I50.33 Acute on chronic diastolic (congestive) heart failure; E11.9 Type 2 diabetes mellitus without complications; F32.9 Major depressive disorder, single episode, unspecified; E78.5 Hyperlipidemia, unspecified; Z95.0 Presence of cardiac pacemaker; I25.10 Atherosclerotic heart disease of native coronary artery without angina pectoris; I27.20 Pulmonary hypertension, unspecified; I34.0 Nonrheumatic mitral (valve) insufficiency; Z79.84 Long term (current) use of oral hypoglycemic drugs; Z79.899 Other long term (current) drug therapy
CPT/HCPCS: 71045; 93005; 96374; 99285; A4216; J1940

== ENCOUNTER 2018-11-27 17:00 | Outpatient (RCR) | payer MEDICARE, SELFPAY ==
[2018-10-09 11:36] VITALS: BMI 26.2
--- NOTE | 2018-11-09 08:48 | HP.PTEVAL ---
Patient's Visit Information LEOPOLDO PONCE is a 78 year old F referred to Physical Therapy by Roel Ha DO with a diagnosis of R ankle pain. Date of Evaluation: 11/09/18 Physical Therapist: Kvng Jerez, KENDALLT, OCS, CSCS - Visit Plan Frequency: 2x /Week Duration: 4-6 Weeks Plan: 2x/week for 4-6... Ankle lateral STM to remodel scar tissue in lateral ligaments, A/PROM, strength adn proprioception. Progress HEP of same. Has pacemaker. Wants to hold on orthotics right now due to cost. - Subjective Findings: Slipped on ice on 09/16/18 dn fell on slanted driveway. Sprained R ankle and hurts on outside of R ankle. Intermittent pain now. Improving slowly but comes and goes. Today is good day so far. Hurts to pull ankle in. Mostly comfortable sitting. Hurt yesterday 02/11. Sleeping is OK. No other falls lately. Activities are getting normal but hurts miserably some days. Dress and bathroom and housework normal with nieces help who lives with her. Fixes dinner for sister in law also. Enjoys reading but no time, likes to walk but it is too cold. No regular exercises. No other treatments, was in ER first day and x ray was OK. No treatment other than ice. - Pain R alateral ankle Pain Intensity (Out of 10): 0 Pain Intensity Range: 0, 7 - Objective Walks well today with mild R antalgia, safe adn I. Trasnfers I. Steps tender ascending but does well descending needing one rail. Tender to touch lateral fib talar calcaneal ligaments and slightly posterior at achilles lateral. Some hindfoot valgus obvious with ambulation causing pain. Knees and hips symmetrical ROM and 4-/5 strength. Sensation decreased in B LE feet to gross light touch. Ankle AROM limited and painful in DF ev inv on R vs L, pain at end ranges inv 17 degrees, eversion 10 and DF 0. PF is full but hurts to heel raise and unable to walk WB R on toes due to pain. Metatarsals and toes move well without pain. - Balance Scores Functional Gait Assessment Score: 25 % Disability: 16.6700 - Goals Goal 1:: Full aROM R ankle without pain Goal Time Frame: 4-6 Weeks Goal 2:: Walk consistently community distances without antalgia or pain 1 week Goal Time Frame: 4-6 Weeks Goal 3:: I approp HEP to minimize future problems. Goal Time Frame: 4-6 Weeks Goal 4:: Pt feel 90% improved R ankle Goal Time Frame: 4-6 Weeks - Rehabilitation Potential Physical Therapy Diagnosis: R ankle pain /strain. Rehabilitation Potential: Fair - Anticipated Interventions Patient/Client Instruction: Educate patient on: Condition, Plan of Care For the Purpose of:: To decrease pain, To increase ROM, To increase tolerance to activity/condition/position, To improve ability of physical actions for home/community/work/leisure Therapeutic Exercise to Include: Strength training, Flexibilty training, Passive ROM, Active ROM For the Purpose of:: To decrease pain, To increase ROM, To improve muscle performance and motor function, To improve ability to perform ADL's, To increase tolerance to activity/condition/position Manual Therapy Techniques to Include: Soft tissue mobilization For the Purpose of:: To decrease pain, To increase ROM, To improve nutrient delivery to tissue Orthotics: Shoe insert For the Purpose of:: To decrease pain Thank you for the opportunity to evaluate your patient. For Medicare and Medicare HMO plans, please review the plan of care and approve it. It will need to be FAXED BACK to us at [phone] for Medicare purposes. For Medicare only, by signing this I certify the plan of care. Please let me know if there are questions or concerns regarding this plan of care. Physician Signature: Date:
--- NOTE | 2019-01-07 14:47 | HP.PTDCNRP_ITS ---
HP - Discharge Summary (1) - Patient Information LEOPOLDO PONCE was seen in my office for initial evaluation on 11/09/18. The following Plan of Care was established for this patient: Initial Frequency: 2x /Week Initial Duration: 4-6 Weeks - Anticipated Interventions Patient/Client Instruction: Educate patient on: Condition, Plan of Care For the Purpose of:: To decrease pain, To increase ROM, To increase tolerance to activity/condition/position, To improve ability of physical actions for home/community/work/leisure Therapeutic Exercise to Include: Strength training, Flexibilty training, Passive ROM, Active ROM For the Purpose of:: To decrease pain, To increase ROM, To improve muscle performance and motor function, To improve ability to perform ADL's, To increase tolerance to activity/condition/position Manual Therapy Techniques to Include: Soft tissue mobilization For the Purpose of:: To decrease pain, To increase ROM, To improve nutrient delivery to tissue Orthotics: Shoe insert For the Purpose of:: To decrease pain This patient was last seen in our office 11/27/18. 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 She was to call when needed to return but has been over a month at this point and I will discontinue due to nonattendance. At this point I will be discontinuing this patient from physical therapy. I would be happy to see this patient again in the future if found appropriate by the physician. Thank you! Kvng Jerez, DPT, OCS, CSCS
== END 2018-11-27 19:00 | disposition home or self-care (01) ==
LOC: PT 17:00
PROVIDERS: Family Provider Internal Medicine; PCP Internal Medicine; Referring Provider Orthopaedic Surgery; Visit Provider Orthopaedic Surgery
DX: M25.871 Other specified joint disorders, right ankle and foot (principal)
CPT/HCPCS: 97110; 97140; 97161

== ENCOUNTER 2019-05-23 13:37 | Emergency (ER) | payer MEDICARE, SELFPAY ==
[2018-12-06 08:22] VITALS: BMI 24.4
[2019-05-23 13:39] VITALS: BP 167/75; PULSE 60; RESP 14; TEMP 35.8; O2SAT 94; BMI 25.7
--- NOTE | 2019-05-23 13:42 | EKG12_ITS ---
Test Reason : STROKE ALERT Blood Pressure : / mmHG Vent. Rate : 060 BPM Atrial Rate : 060 BPM P-R Int : 136 ms QRS Dur : 096 ms QT Int : 518 ms P-R-T Axes : 013 031 094 degrees QTc Int : 518 ms Normal sinus rhythm Nonspecific ST and T wave abnormality Prolonged QT Abnormal ECG Confirmed by MARY FERGUSON, FERNANDO ([id number]), graphic editor CHAU JOSHI ([id number]) on 05/24/2019 1:21:14 PM Referred By: FRANK Confirmed By:LETTY HERNANDEZ MD
--- NOTE | 2019-05-23 13:42 | CT_ITS ---
STUDY: CT BRAIN WITHOUT CONTRAST REASON FOR EXAM: Female, 79 years old. Stroke protocol. RADIATION DOSAGE (If Supplied By Facility): CTDIvol = ( 44.99 ) mGy, DLP = ( 779.24 ) mGycm TECHNIQUE: Transaxial CT imaging of the brain was performed without administration of intravenous contrast material. Individualized dose optimization techniques were used for this CT. COMPARISON: Comparison is made with prior study dated January 25, 2017. FINDINGS: Normal soft tissue structures. Normal calvarium. There is mild cerebral atrophy with widening of the extra-axial spaces and ventricular dilatation. Subtle decreased attenuation involving the right posterior frontal temporal parietal lobe suggestive of an early infarct involving the distribution of the right middle cerebral artery territory. There are areas of decreased attenuation within the white matter tracts of the supratentorial brain, consistent with microvascular disease changes. Normal basal ganglia and thalami. Normal brainstem. Normal cerebellum. There is no intracranial hemorrhage. There is evidence of hyperdense right middle cerebral artery suggestive of an intraluminal thrombus. Normal visualized paranasal sinuses. CT/Brain/Head without Contrast IMPRESSION: Findings suggestive of a thrombus in the right middle cerebral artery with findings of suggestive of an early infarct in the right middle cerebral artery territory. N.B. : The above information has been verbally conveyed by Steve Ramos to Hector Mccollum on 05/23/2019 13:56:18 (ET). Electronically Signed: Steve Ramos, at 13:58 EDT , Service support ,
[2019-05-23 13:43] VITALS: BP 167/75; PULSE 60; RESP 14; O2SAT 94
--- NOTE | 2019-05-23 13:55 | RAD_ITS ---
STUDY: X-RAY CHEST REASON FOR EXAM: Female, 79 years old. Stroke. TECHNIQUE: Single AP portable view of the chest. COMPARISON: November 22, 2018. FINDINGS: Left-sided cardiac device in position. Cardiac silhouette unremarkable. Pulmonary vascularity unremarkable. Aorta unremarkable. No focal patchy airspace opacities. No pleural effusions. Upper abdomen unremarkable. Osseous structures are slightly demineralized. No pneumothorax. Degenerative changes of the shoulders and spine. RAD/Chest 1 View IMPRESSION: No acute cardiopulmonary findings Electronically Signed: Kvng Perez DO at 14:47 EDT Tel , Service support ,
[2019-05-23 13:58] LABS: Absolute Lymphocyte Count 1.15 X10^3/uL (0.83-4.51); Absolute Neutrophil Count 4.6 X10^3/uL (2.0-7.7); Basophil# 0.02 X10^3/uL; Basophil% 0.3 % (0-1); Eosinophil# 0.13 X10^3/uL; Hemoglobin 12.1 g/dL (12.0-15.0); Lymphocyte # 1.15 X10^3/ul (4.0); Lymphocyte % 17.7 % (19-41); Mean Corp Hgb Conc 31.8 g/dL (32-36); Mean Corpuscular Hgb 30.4 pg (27.0-32.0); Mean Corpuscular Volume 95.5 fL (81-99); Mean Platelet Vol. 10.3 fl (6.2-12.0); Monocyte# 0.53 X10^3/uL; Monocyte% 8.2 % (0-10); NRBC Flagged by Analyzer 0 % (0-5); Neutrophil # 4.64 X10^3/uL (2.7-7.7); Neutrophil % 71.6 % (47-70); Platelet Count 258 K/mm3 (150-450); RBC Distribution Width CV 13.1 % (11.6-14.6); RBC Distribution Width SD 46.5 fl (35.1-43.9); Red Blood Count 3.98 M/mm3 (4.2-5.4); White Blood Count 6.5 K/mm3 (4.4-11.0)
--- NOTE | 2019-05-23 14:01 | CT_ITS ---
We are attempting to reach an attending provider to discuss findings. An addendum with communication details will be sent when the communication is complete. STUDY: CTA HEAD AND NECK WITH CONTRAST REASON FOR EXAM: Female, 79 years old. STROKE. RADIATION DOSAGE (If Supplied By Facility): CTDIvol = ( 21.56 ) mGy, DLP = ( 704.45 ) mGycm TECHNIQUE: CT angiography was performed with a multi-detector CT scanner. Data acquisition was obtained from the skull base through the vertex following intravenous administration of 100 IV Isovue 370. MIP images were reconstructed from the axial data set. Post-processing of the angiographic images was performed, with multiplanar reformation and 3D reconstruction. Individualized dose optimization techniques were used for this CT. COMPARISON: No relevant priors. FINDINGS: Normal bilateral petrous carotid arteries. Normal left cavernous carotid artery. There is occlusion of the right ICA terminus with extension into the right MCA near extending to the bifurcation with near complete absence of of distal vascular branches. There is extension into the proximal right A1 segment of the anterior cerebral artery. Normal right A1 segments of the anterior cerebral artery. Normal left A1 segments of the anterior cerebral artery. Normal intact anterior communicating artery (ACOM). Normal bilateral A2 segments of the anterior cerebral arteries. Normal left M1 and M2 segments of the middle cerebral arteries, with a normal M1 bifurcation. There is a persistent origin of the right posterior cerebral artery with absence of the posterior communicating artery (PCOM). There is non-visualization of the left posterior communicating artery (PCOM). Normal basilar artery with a normal basilar bifurcation. The visualized bilateral superior cerebellar (SCA) arteries are normal. Normal bilateral posterior cerebral arteries. AORTIC ARCH: Normal visualized aortic arch. RIGHT CAROTID ARTERIES: Normal right common carotid artery (CCA). Normal right common carotid bulb. Normal origin of the right internal carotid (ICA) artery without a hemodynamically significant stenosis. There is atherosclerotic tortuous elongation of the cervical portion of the right internal carotid artery. Normal origin of the right external carotid artery (ECA). LEFT CAROTID ARTERIES: Normal left common carotid artery (CCA). Normal left common carotid bulb. Normal origin of the left internal carotid (ICA) artery without a hemodynamically significant stenosis. There is atherosclerotic tortuous elongation of the cervical portion of the left internal carotid artery. Normal origin of the left external carotid artery (ECA). VERTEBRAL ARTERIES: There is enhancement within the bilateral vertebral arteries with a small left vertebral artery, and a dominant right vertebral artery. CT/CTA Head AND Neck W/ Contrast IMPRESSION: Right MCA occlusion Electronically Signed: Gabe Wen MD at 15:30 EDT Tel , Service support ,
[2019-05-23 14:05] LABS: International Normalized Ratio 1.3; Prothrombin Time (Protime)PT. 16.1 SECONDS (11.7-14.9)
[2019-05-23 14:06] LABS: Partial Thromboplast Time 27.5 Seconds (24.1-36.2)
[2019-05-23 14:14] LABS: Anion Gap 6 (5-15); BUN 24 mg/dL (7-18); BUN/Creat Ratio 21.1 RATIO (10-20); Chloride 109 mmol/L (98-107); Creatinine, Serum 1.14 mg/dL (0.55-1.02); EST Glomerular Filtration Rate 49 mL/min (>60); Est Glom Filt Rate - Afr Amer 59 mL/min (>60); Glucose 151 mg/dL (74-106); Potassium 4.2 mmol/L (3.5-5.1); Sodium Level 145 mmol/L (136-145)
[2019-05-23 14:18] VITALS: BP 161/90; PULSE 60; RESP 13; O2SAT 98; BMI 25.7
[2019-05-23 14:27] VITALS: BP 161/90; PULSE 60; RESP 17; O2SAT 99
[2019-05-23] MEDS: 0.9% Normal Saline 1,000 ML 150 ML IV (14:40)
--- NOTE | 2019-05-23 15:03 | CHAPLAIN ---
Type of Pastoral Visit ___ Initial Visit ___ Follow-up Visit ___ On-call Visit ___ General Patient Visit ___ Spiritual Assessment ___ Family Conference ___ Bereavement _x__ Rapid Response ___ Code Blue ___ Other (describe below) Pastoral Care Referral From ___ Patient ___ Family ___ Nurse ___ Physician ___ Principal Android Developer ___ Director Business Management _x__ Other (describe below) Sacrament/Intervention ___ Active listening ___ Anointing ___ Denominational ___ Bereavement ___ Communion ___ Tian[place] exploration ___ ___ Life review ___ Prayer ___ Reconciliation ___ Sacrament of Sick ___ Supportive presence ___ Wedding _x__ Other (describe below) Pastoral Comments arrived to ED where patient is being evaluated; pt is then taken for testing; no family members are present; squad members that brought her in are not sure that any family members will be coming;
--- NOTE | 2019-05-23 16:38 | ED.DCSUM_ITS ---
- ER Visit Summary Date of Service: 05/23/19 Chief Complaint: Stroke History of Present Illness: The patient is a 79 F who was found on the ground in her garage today and EMS was called who noted left-sided deficits. Reportedly the patient spoke to family approximately 1/2 hours prior to being here in the department was fine. She has a history of atrial fibrillation is on Xarelto. She took this this morning. She also has a history of diabetes hypertension high cholesterol. She has a pacemaker. She notes a headache. Physical Examination: 161/90 heart rate 60 respirations are 17 pulse ox 99% temperature is 96.5. Gen: Well-nourished well-developed Head: Normocephalic atraumatic Eyes: Perrl EOMI eyes gaze to the right but unable to bring them back to the left. ENT: TMs clear no rhinorrhea moist mucous membranes Neck: Supple no lymphadenopathy no JVD nontender CVS: Regular rate rhythm no murmurs normal S1-S2 Respiratory: No distress clear to auscultation bilaterally chest nontender Abdomen: Soft nontender nondistended normal bowel sounds no masses Back: Nontender Extremity: Nontender no edema Skin: Normal color no rash Neuro: alert patient has a pronounced facial droop. She appears to have hemineglect. She appears to have visual field deficits. She has dysarthria. She does not recognize me touching her face arm or legs. She does not recognize me when I lens coating technician front of her face and speak that looks to the right stating she does not see me. She cannot move the left arm or leg. Psych: Normal affect normal mood Test Results: Stroke labs obtained. EKG sinus rhythm at a rate of 60. Chest x- ray no acute findings. CT of the brain demonstrated a hyperdense right MCA sign Emergency Department Course and Treatment: Stroke team was called prehospital. Stroke neurology from [facility] was visiting with the patient. I informed them of her head CT plan was made to fly her to [facility] for possible thrombectomy. Prior to transfer CTA of the brain was obtained. He does not demonstrate dissection or l arge vessel occlusion showed an acute MCA stroke. Impression: 1. 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 Critical care time 35 minutes This note was generated with [employer] dictation software. It may contain incorrect words, spelling, and punctuation that were not noted in review of the chart prior to signing ED Disposition - Plan for ED Patient: Disposition: [facility] Referrals: Nafisa Chawla DO [Primary Care Provider] -
== END 2019-05-23 14:38 | disposition short-term general hospital (02) ==
PROVIDERS: Emergency Provider Emergency Medicine; Family Provider Internal Medicine; PCP Internal Medicine
DX: I63.9 Cerebral infarction, unspecified (principal); R29.810 Facial weakness; R47.1 Dysarthria and anarthria; G81.94 Hemiplegia, unspecified affecting left nondominant side; I48.91 Unspecified atrial fibrillation; I10 Essential (primary) hypertension; E11.9 Type 2 diabetes mellitus without complications; Z95.0 Presence of cardiac pacemaker; Z79.02 Long term (current) use of antithrombotics/antiplatelets
CPT/HCPCS: 70450; 70496; 70498; 71045; 80048; 84484; 85025; 85610; 85730; 93005; 99285; Q9967

== ENCOUNTER 2019-06-06 18:57 | Inpatient (IN) | payer MEDICARE, SELFPAY ==
[2019-06-06 19:15] VITALS: BP 185/85; PULSE 62; RESP 16; TEMP 36.6; O2SAT 96
[2019-06-06 19:58] VITALS: BMI 23.8; BMI 23.9
[2019-06-06 21:45] LABS: Bedside Glucose 95 mg/dL (70-110)
[2019-06-06 21:48] VITALS: BP 185/92; PULSE 64
[2019-06-06] MEDS: Atorvastatin Calcium 40 MG Tablet PO (22:25)
[2019-06-06] MEDS: Flecainide 100 MG Tablet PO (22:26)
[2019-06-06] MEDS: Carvedilol 6.25 MG Tablet PO (22:26)
[2019-06-06] MEDS: LORazepam 0.5 MG Tablet PO (22:27)
[2019-06-06] MEDS: Acetaminophen 325 MG Tablet 650 MG PO (22:28)
[2019-06-06 22:45] VITALS: BP 157/83; PULSE 64
--- NOTE | 2019-06-07 01:16 | NURSING ---
Admitted 79 yr old caucasion female to 402. Family present assisting with answering admission questions Pt alert, oriented x3 with slurred speech, left facial droop, left neglect, flaccid left arm, very weak left leg. Has intermittent confusion.
--- NOTE | 2019-06-07 01:19 | NURSING ---
Frequent request and use of bedpan. (x4 from 7p to 10p) Denies burning, urine clear, yellow. Bladder scans with low residual
[2019-06-07 01:27] VITALS: BMI 23.8
[2019-06-07] MEDS: Carvedilol 6.25 MG Tablet PO ×2 (05:37→21:04)
[2019-06-07 05:54] LABS: Hematocrit 33.8 % (37-47); Hemoglobin 10.9 g/dL (12.0-15.0); Mean Corp Hgb Conc 32.2 g/dL (32-36); Mean Corpuscular Hgb 30.4 pg (27.0-32.0); Mean Corpuscular Volume 94.2 fL (81-99); Platelet Count 492 K/mm3 (150-450); RBC Distribution Width CV 12.8 % (11.6-14.6); RBC Distribution Width SD 43.9 fl (35.1-43.9); Red Blood Count 3.59 M/mm3 (4.2-5.4); White Blood Count 6.8 K/mm3 (4.4-11.0)
[2019-06-07 06:21] LABS: Anion Gap 10 (5-15); BUN 19 mg/dL (7-18); BUN/Creat Ratio 20.7 RATIO (10-20); Calcium,Total 9.5 mg/dL (8.5-10.1); Chloride 109 mmol/L (98-107); Creatinine, Serum 0.92 mg/dL (0.55-1.02); EST Glomerular Filtration Rate 63 mL/min (>60); Est Glom Filt Rate - Afr Amer 76 mL/min (>60); Estimated Creatinine Clearance 49.01 ml/min; Glucose 101 mg/dL (74-106); Potassium 3.2 mmol/L (3.5-5.1); Sodium Level 143 mmol/L (136-145)
[2019-06-07 07:41] VITALS: O2SAT 98
[2019-06-07] MEDS: Senna/Docusate Sodium 1 Tablet 2 TABLET PO (08:02)
[2019-06-07] MEDS: DULoxetine Hcl 60 MG Capsule PO (08:02)
[2019-06-07] MEDS: QUEtiapine 25 MG Tablet 12.5 MG PO ×2 (08:02→21:04)
[2019-06-07] MEDS: Flecainide 100 MG Tablet PO ×2 (08:02→21:04)
[2019-06-07] MEDS: Losartan Potassium 100 MG Tablet PO (08:03)
[2019-06-07] MEDS: Aspirin 81 MG TAB.CHEW PO (08:03)
[2019-06-07] MEDS: Enoxaparin 40 MG/0.4 ML Syringe SC (08:03)
--- NOTE | 2019-06-07 08:29 | HP.PCM.COS_ITS ---
History of Present Illness Date of Admission: 06/06/19 Chief Complaint: Debility secondary to Right MCA post thrombectomy The patient is a 79 year old F with PMH of pulmonary HTN, HLD, CAD, DM type II, A-fib with RVR, pacemaker, RUDY, anxiety and depression admitted to [facility] you on 06/06/2019 for debility secondary to right MCA post thrombectomy, for 3 hours of therapy daily with a goal of returning home at or near her prior level of independence. She presented to [facility] ER on 05/23/2019 due to patient was found laying on the ground in her garage with left-sided deficits. Pressure was 161/90 with heart rate of 60. NIH was 20. CT of brain suggestive of thrombus in the right MCA and an early infarct in the right MCA territory. CTA head and neck with contrast impression right MCA occlusion. No TPA and patient was transferred to [facility]. On 05/23/19, neurosurgeon Dr. Doll formed the right MCA thrombectomy, due to right VA occlusion. Postprocedural right ICA arteriogram demonstrated TICI?2b revascularization. CT of head without contrast on 06/04/2019 right MCA territory infarct with decrease edema noted in resolution of previously noted mass-effect of the right lateral ventricle and resolution of previously noted midline shift. Scattered hemorrhage within the infarct is less well seen in particular the right basal ganglia hemorrhage is less tense. No new hemorrhage is identified.. Unable to obtain MRI due to pacemaker. TTE done which showed ejection fraction 65 to 70% and RVSP 41-45 mmHg. LDL 116, HgbA1c 6.5%. Prior to hospitalization patient was on Xarelto 15 mg daily for A. fib, currently has been stopped. Patient lives with niece in a two-story house with first-floor set up, 2 steps to enter. Patient was independent with all ADLs, mobility, and driving prior to hospitalization. Past Medical History Past Medical History (Chronic Problems): Chronic Problems (Last Reviewed 10/09/18 @ 11:48 by Golden Kruger MD) Atherosclerotic heart disease of [place] coronary artery without angina pectoris (Chronic) Per [facility] 01/18/2010 Dr. Gonzalez @ [facility]: 10-20% stenosis in mid and ostial LAD, in ramus intermedius; 10% in circumflex, 10% proximal stenosis in first OM History of left heart catheterization (Chronic 01/2010) Per Dr. Gonzalez @ [facility]: 10-20% stenosis in mid and ostial LAD, in ramus intermedius; 10% in circumflex, 10% proximal stenosis in first OM Hyperlipidemia (Chronic) Acute on chronic diastolic (congestive) heart failure (Chronic) intermission coordinator use of drug (Chronic) AV junctional bradycardia (Chronic) Presence of permanent cardiac pacemaker (Chronic) 07/13/15, [facility] DM II (diabetes mellitus, type II), controlled (Chronic) PAF (paroxysmal atrial fibrillation) (Chronic) recurrent HTN (hypertension) (Chronic) Dyslipidemia (Chronic) Anxiety (Chronic) Depression (Chronic) Diastolic dysfunction (Chronic) Lumbar disc herniation with radiculopathy (Chronic) Pulmonary hypertension (Chronic) Tricuspid regurgitation (Chronic) Mitral regurgitation (Chronic) Abnormal thyroid function test (Chronic) Medical History: Medical History (Last Reviewed 10/09/18 @ 11:48 by Golden Kruger MD) Atherosclerotic heart disease of [place] coronary artery without angina pectoris (Chronic) I25.10 Per [facility] 01/18/2010 Dr. Gnozalez @ [facility]: 10-20% stenosis in mid and ostial LAD, in ramus intermedius; 10% in circumflex, 10% proximal stenosis in first OM DM II (diabetes mellitus, type II), controlled (Chronic) E11.9 PAF (paroxysmal atrial fibrillation) (Chronic) I48.0 recurrent HTN (hypertension) (Chronic) I10 Dyslipidemia (Chronic) E78.5 Anxiety (Chronic) F41.9 Depression (Chronic) F32.9 Diastolic dysfunction (Chronic) I51.9 Lumbar disc herniation with radiculopathy (Chronic) M51.16 Atrial fibrillation with RVR (Acute) I48.91 Pulmonary hypertension (Chronic) I27.2 Tricuspid regurgitation (Chronic) I07.1 Subtherapeutic international normalized ratio (INR) (Acute) R79.1 Mitral regurgitation (Chronic) I34.0 Abnormal thyroid function test (Chronic) Syncope and collapse (Acute) R55 Iron deficiency anemia (Resolved) D50.9 Stool incontinence (Acute) R15.9 Fecal occult blood test positive (Acute) History of hysterectomy Z98.890, Z90.710 Allergies hydralazine Adverse Reaction (Severe, Verified 05/23/19 14:30) Itching amlodipine besylate [From [facility]] Adverse Reaction (Intermediate, Verified 05/23/19 14:30) Itching Home Medications: Ambulatory Orders Medication Instructions Recorded Valsartan [Diovan] 160 mg PO BID 10/19/15 Cholecalciferol (Vitamin D3) 5,000 unit PO DAILY 03/21/17 [Vitamin D3] Latanoprost 0.005% [Xalatan 1 drp EACH EYE QHS 03/21/17 Opthalmic] Metoprolol Succinate [Toprol Xl] 50 mg PO DAILY 03/21/17 Omeprazole [Prilosec] 20 mg PO DAILY 03/21/17 Pravastatin Sodium 40 mg PO DAILY 03/21/17 magnesium 400 mg (as magnesium 400 mg PO DAILY cap 11/21/17 oxide) capsule metformin 500 mg tablet 1,000 mg PO BID tab 11/21/17 multivitamin tablet 1 tab PO QDAY 02/21/18 hydrochlorothiazide 25 mg tablet 12.5 mg PO DAILY PRN tab 10/09/18 Nifedipine [Nifedipine ER] 30 mg PO DAILY 11/16/18 rivaroxaban 15 mg tablet 15 mg PO QDAY #90 tab 11/27/18 duloxetine 20 mg capsule,delayed 60 mg PO QDAY cap 12/06/18 release Aspirin, Baby 81 mg PO DAILY 06/06/19 Atorvastatin Calcium [Lipitor] 40 mg PO QHS 06/06/19 Carvedilol [Coreg] 6.25 mg PO Q8H 06/06/19 Duloxetine Hcl [Cymbalta] 60 mg PO DAILY 06/06/19 Flecainide [Tambocor] 100 mg PO BID 06/06/19 Latanoprost 0.005% Eye Drop 1 drp EACH EYE DAILY 06/06/19 Quetiapine Fumarate [Seroquel] 12.5 mg PO DAILY 06/06/19 Surgical History: Surgical History (Last Updated 12/06/18 @ 08:25 by Rupa Martines) History of left heart catheterization (Chronic) Onset Date: 01/[address] Gonzalez @ [facility]: 10-20% stenosis in mid and ostial LAD, in ramus intermedius; 10% in circumflex, 10% proximal stenosis in first OM History of knee surgery Z98.890 History of lumbar discectomy Z98.89 X 2 Surgical History: appendectomy, cataract - She has had bilateral cataract extraction with intraocular lens implant., hysterectomy - Patient states that she still has her ovaries and the hysterectomy was done for dysfunctional uterine bleeding., - - Surgery on the right knee to repair her meniscus. Psychiatric History: Anxiety, Depression - Patient states that recently she has been more depressed than usual. She is frequently tired and has no motivation. She has also been having increased appetite to comfort herself. She has difficulty sleeping and feels stressed. LAY OUT FORMER History: dysfunctional uterine bld Lives: With Family Smoking Status: Former smoker - per patient x 1 year Tobacco Use: Cigarettes Alcohol: Rare Drugs: None - *Family History Paternal Family History: Family History (Last Reviewed 12/06/18 @ 08:28 by uRpa Martines) Sister Diabetes Hypertension Father Heart disease Hypertension Myocardial infarction Mother Cancer History Items: Heart Disease, Hypertension, Stroke Maternal Family History: Family History (Last Reviewed 12/06/18 @ 08:28 by Rupa Martines) Sister Diabetes Hypertension Father Heart disease Hypertension Myocardial infarction Mother Cancer History Items: Stroke - in maternal CVA, - - mother of lung CA Sibling Family History: Family History (Last Reviewed 12/06/18 @ 08:28 by Rupa Martines) Sister Diabetes Hypertension Father Heart disease Hypertension Myocardial infarction Mother Cancer History Items: - - she has a younger sister who had a stroke from a AVM in the brain Review of Systems Constitutional: Denies: Chills, Fever, Weight Change Eyes: Denies: - - denies vision changes, unaware of left hemianopia HEENT: Reports: Difficulty Swallowing, Visual Changes Cardiovascular: Denies: Chest Pain, Palpitations Respiratory: Denies: Cough, Shortness of Breath, Shortness of breath at rest, Sputum production Gastrointestinal: Denies: Abdominal Pain, Nausea, Vomiting Genitourinary: Denies: Dysuria Musculoskeletal: Denies: Joint Pain, Joint Tenderness Skin: Denies: Rash, Wounds Neurological: Reports: Slurred speech, Incoordination, - - visual hallucination- talking to father voices at times sees him post stroke Psychiatric: Reports: Anxiety, Depression VTE Information - Inpt Only VTE Present on Admission: Yes VTE Mechan Device Prophylaxis: Knee High BARNEY Hose VTE Pharm Prophylaxis ordered?: Yes - Physical Exam General: Alert, Oriented x3, Cooperative, - HEENT: Atraumatic, PERRLA, EOMI, - - left hemianopia Oral: Moist Mucosa Neck: Supple, No JVD, Negative Carotid Bruits Lungs: Clear to auscultation, Normal air movement Cardiovascular: Regular rate, No murmurs Abdomen: Bowel Sounds Present, Soft, Non Tender Extremities: No edema, Capillary Refill Less than 3 Seconds Skin: No rashes, No breakdown Neurological: Cranial nerves II-XII grossly intact, Deep Tendon Reflexes 2+/4 and Symmetrical, - - motor strength RUE/RLE 5/5, LUE 0/5, LLE 3/5. visual hallucination- speaking to father during exam, needs extra time to process cogntive needs Psych/Mental Status: Normal Affect, - - a/o x3, redirected needed, cooperative and pleasant Vital Signs Temp Pulse Resp BP Pulse Ox 97.9 F 64 16 157/83 H 98 06/06/19 19:15 06/06/19 22:45 06/06/19 19:15 06/06/19 22:45 06/07/19 07:41 Oxygen Delivery Method Room Air Weight: 69.1 kg Body Mass Index (BMI) 23.8 Finger Stick Blood Glucose 143 Intake and Output for Last 24 Hours 06/05/19 06/06/19 06/07/19 23:59 23:59 23:59 Intake Total 120 / 120 Output Total 350 / 350 Balance -350 / -350 120 / 120 Laboratory Tests Past 24 Hrs 06/07/19 06/07/19 05:15 05:15 WBC 6.8 RBC 3.59 L Hgb 10.9 L Hct 33.8 L MCV 94.2 MCH 30.4 MCHC 32.2 RDW Std Deviation 43.9 RDW Coeff of Keyur 12.8 Plt Count 492 H MPV 10.0 Sodium 143 Potassium 3.2 L Chloride 109 H Carbon Dioxide 24.0 Anion Gap 10 BUN 19 H Creatinine 0.92 Estim Creat Clear Calc 49.01 Est GFR (MDRD) Af Amer 76 Est GFR (MDRD) Non-Af 63 BUN/Creatinine Ratio 20.7 H Glucose 101 Calcium 9.5 POC Glucose 06/06/19 21:43 POC Glucose 95 Assessment/Plan All Active Problems (Last Reviewed 10/09/18 @ 11:48 by Golden Kruger MD) Atrial fibrillation with RVR (Acute) Subtherapeutic international normalized ratio (INR) (Acute) Syncope and collapse (Acute) Iron deficiency anemia (Resolved) Stool incontinence (Acute) Fecal occult blood test positive (Acute) Acute CVA (cerebrovascular accident) (Resolved) Dehydration (Resolved) Heme + stool (Resolved) Hypokalemia (Resolved) Iron deficiency anemia due to chronic blood loss (Resolved) Junctional bradycardia (Resolved) Left facial numbness (Resolved) Migraine (Resolved) Paresthesias in left hand (Resolved) Supratherapeutic INR (Resolved) The patient is a 79 year old F with PMH of pulmonary HTN, HLD, CAD, DM type II, A-fib with RVR, pacemaker, RUDY, anxiety and depression admitted to [facility] on 06/06/2019 for debility secondary to right MCA post thrombectomy, for 3 hours of therapy daily with a goal of returning home at or near her prior level of independence. She presented to [facility] ER on 05/23/2019 due to patient was found laying on the ground in her garage with left-sided deficits. Pressure was 161/90 with heart rate of 60. NIH was 20. CT of brain suggestive of thrombus in the right MCA and an early infarct in the right MCA territory. CTA head and neck with contrast impression right MCA occlusion. No TPA and patient was transferred to [facility]. On 05/23/19, neurosurgeon Dr. Doll formed the right MCA thrombectomy, due to right VA occlusion. Postprocedural right ICA arteriogram demonstrated TICI?2b revascularization. CT of head without contrast on 06/04/2019 right MCA territory infarct with decrease edema noted in resolution of previously noted mass-effect of the right lateral ventricle and resolution of previously noted midline shift. Scattered hemorrhage within the infarct is less well seen in particular the right basal ganglia hemorrhage is less tense. No new hemorrhage is identified.. Unable to obtain MRI due to pacemaker. TTE done which showed ejection fraction 65 to 70% and RVSP 41-45 mmHg. LDL 116, HgbA1c 6.5%. Prior to hospitalization patient was on Xarelto 15 mg daily for A. fib, currently has been stopped. Patient lives with niece in a two-story house with first-floor set up, 2 steps to enter. Patient was independent with all ADLs, mobility, and driving prior to hospitalization. Plan - PT for mobility - OT for ADLs - ST for evaluation - Right MCA infarct post thrombectomy on statin, asa, antihypertensives - Pulmonary HTN on valsartan and coreg hold if SBP <130 - A-fib with RVR on flecainide xeralto discontinued - DM type II on humalog S.C., accuchecks ac/hs, HgbA1c 6.5% - CAD on asa - HLD on lipitor LDL 116 - RUDY stable 06/07/19 H/H 33.8/10.9 - Anxiety/depression on cymbalta - Insomnia/visual hallucinations on seroquel - Dysphagia on pureed, honey thickened liquids- ST to follow - Hypokalemia K+ 3.2, K-dur 40meq x1, recheck bmp on 06/10/19 - GI/DVT prophylaxis pepcid/lovenox, knee high barney hose - Medical management per hospitalist-consult - Analgesics as needed - Bowel protocol - F/U neurosurgeon Dr. Harrison, PCP, neurology, cardiology
[2019-06-07 09:13] VITALS: BP 137/71; PULSE 85; RESP 18; TEMP 36.8; O2SAT 95
[2019-06-07 11:06] VITALS: BMI 23.8
[2019-06-07] MEDS: Famotidine 20 MG Tablet PO (11:53)
--- NOTE | 2019-06-07 12:13 | PCM.RU.PYE ---
Admission Information Status Changes from Prescreening?: No changes Identified Actual Problem List:: Cognitve Impr/Memory Loss, Alteration in Sleep, Alteration in Nutrition, Mobility Impaired, Diabetes, Hyperglycemia, BP, Hypertension, Ineffect.D/C Plan r/t Psy Potential Problem List:: DVT, Bleeding, Infection, UTI, Aspiration, Falls, Skin Integrity, Depression Risk of Complications DVT: LMWH, BARNEY Hose, Sequential Compression Device Bleeding: Monitor Lab Values, Nursing to Teach Precautions for anti-coagulation therapy., Wound, if applicable, to be assessed every shift., Stroke patients assessed for lethargy or change in status. Infection: Clinical Staff to Monitor for S/S of infection:, S/S of infection include fever, redness, warmth, etc. Urinary Tract Infection: Monitor for frequency, burning, discomfort, or incontinence., Nursing will obtain urine sample for urinalysis and C&S when ordered. Aspiration: Clinical staff will monitor for coughing, drooling, congestion., Speech will evaluate swallowing and dsyphasia., Nursing will monitor patient swallowing during meals. Falls: Patient will be evaluated for Fall Precautions, Patient will be placed on Fall Precautions as indicated per protocol. Skin Breakdown: Nursing will assess skin daily using assessment tool., Nursing will place on Skin Breakdown Precautions as indicated. Pain: Clinical staff will assess patient's pain level per protocol., Medications will be given, if needed, and the pain level reassessed., Other methods: Massage, distraction, decrease stimulus, etc. used PRN. Plan of Care Patient requires physician specializing in physical medicine and rehab oversight to provide close medical supervision of rehab issues including: Pain Management, Sleep Problems, Bowel and Bladder, Medical and co-morbidity Management, DVT prophylaxis, Rehabilitation Leadership, Coordination of treatment team Patient needs Physical Therapy: For a minimum of 1 hour, At least 5 out of 7 days Patient needs Physical Therapy to improve:: Mobility, Mobility, Mobility, Strengthening, Transfers, Stretching, ROM, Endurance, Stairs, Gait, Balance Patient needs Occupational Therapy: For a minimum of 1 hour, At least 5 out of 7 days Patient needs Occupational Therapy to improve ADL's incl.: Eating, Grooming, Bathing, Dressing, Toileting, Toilet transfers, Community Reintegration, Higher functioning activities, Household tasks, Adaptive Equipment, Splinting, Other activities as determined Patient requires speech therapy: For a minimum of 1 hour, At least 5 out of 7 days Patient requires speech therapy for: Swallowing, Cognition, Language Skills, Compensatory Strategies Patient requires 24/ Rehabilitation Nursing for: Pain Issues, Identifying and preventing risk factors, Monitoring and reporting current medical conditions, Assisting with ambulation, transfer, and all ADL's, Teaching patients about disease process and medications, Family teaching, Providing safe environment, Bowel and Bladder Issues, Skin integrity, Medication Management Patient needs Power Generating Plant Operator/ Case Management for: Discharge Planning, Arranging Home Equipment or Services, Family Interventions Patient needs Dietary and Nutrition Services for: Adequate Nutrition, Nutritional Supplements, Nutritional Education Goals Patient will remain: free from falls, or injury at time of discharge. Patient will perform bed mobility at: MOD I level of assist. Patient will complete transfers from bed to chair at: MOD I level of assist. Patient will ambulate: 100 feet, with MOD I assist, with LRD Patient will complete upper body dressing at: MOD I level of assist. Patient will complete lower body dressing at: MOD I level of assist. Patient will complete toileting at: MOD I level of assist. Patient will perform bathing at: MOD I level of assist. Patient will complete grooming at: MOD I level of assist. Patient will complete home management skills at: MOD I level of assist. Patient will achieve: 12 stairs, at MOD I assist Patient will have pain level of: of 3 or less Patient's skin will: remain intact, free from infection. Patient will receive: adequate nutrition. Discharge Planning Pt Prognosis for Sig. Practical Improv. w/in Reasonable Time: Good Anticipated D/C Destination: Home with Outpt Therapy Was Preadmission Assessment Accurate?: Yes
[2019-06-07 12:25] LABS: Bedside Glucose 95 mg/dL (70-110)
[2019-06-07 13:33] VITALS: BP 109/69; PULSE 63
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
--- NOTE | 2019-06-07 16:58 | CHAPLAIN ---
patient was sleeping; left a calling card; later returned to find a visitor in room but pt is still sleeping
--- NOTE | 2019-06-07 17:08 | PCM.PN.HOSP ---
Subjective: 79-year-old female with past medical history of chronic atrial fibrillation on Xarelto, hypertension, type II DM, hyperlipidemia, status post pacemaker who was seen in the [facility] ED on 05/23/19 after being found on the ground in her garage. Work-up in the ED showed an acute Right MCA stroke and patient was flown to [facility] for Right ICA thrombectomy. She was admitted to the [facility] inpatient rehab on 06/07/19. She is on a pur?ed diet, modified thick liquid via straw. Patient was seen and examined. She denied any new complaint. She appeared confused. She however is alert oriented x2 but not to time. Therapy is going well. Vitals/I&O's: Vital Signs Temp Pulse Resp BP Pulse Ox 98.2 F 63 18 109/69 95 06/07/19 09:13 06/07/19 13:33 06/07/19 09:13 06/07/19 13:33 06/07/19 09:13 Oxygen Delivery Method Room Air Weight: 69.1 kg Body Mass Index (BMI) 23.8 Finger Stick Blood Glucose 143 Intake and Output for Last 24 Hours 06/05/19 06/06/19 06/07/19 23:59 23:59 23:59 Intake Total 120 / 120 Output Total 350 / 350 Balance -350 / -350 120 / 120 General: Alert, Oriented x3, Cooperative, No apparent distress HEENT: Atraumatic, PERRLA, EOMI, Normocephalic Oral: Moist Mucosa Neck: Supple Lungs: Clear to auscultation, Normal air movement Cardiovascular: Regular rate, Regular Rhythm, Normal S1, Normal S2, No murmurs Abdomen: Bowel Sounds Present, Soft, Non Tender, Non-Distended, No Hepato-splenomegaly Extremities: No edema Skin: No rashes, No breakdown Musculoskeletal: No Tenderness to Palpation of Joints or Extremities Lymphatic: No Cervical, Supraclavicular, or Inguinal Adenopathy Neurological: - - Left-sided facial droop, flaccid paralysis of the left upper extremity as well as left lower extremity, increased tone Psych/Mental Status: Normal Affect, Appropriate Laboratory Results 06/06/19 21:43: POC Glucose 95 06/07/19 05:15: WBC 6.8, RBC 3.59 L, Hgb 10.9 L, Hct 33.8 L, MCV 94.2, MCH 30.4, MCHC 32.2, RDW Std Deviation 43.9, RDW Coeff of Keyur 12.8, Plt Count 492 H, MPV 10.0 06/07/19 05:15: Sodium 143, Potassium 3.2 L, Chloride 109 H, Carbon Dioxide 24.0, Anion Gap 10, BUN 19 H, Creatinine 0.92, Estim Creat Clear Calc 49.01, Est GFR (MDRD) Af Amer 76, Est GFR (MDRD) Non-Af 63, BUN/Creatinine Ratio 20.7 H, Glucose 101, Calcium 9.5 06/07/19 12:02: POC Glucose 95 Current Medications Acetaminophen (Tylenol) 650 mg PO Q6H PRN PRN PRN Reason: pain Last Admin: 06/06/19 22:28 Dose: 650 mg Documented by: [facility] Last Admin: 06/07/19 08:03 Dose: 81 mg Documented by: Atorvastatin Calcium (Lipitor) 40 mg PO QHS [facility] Last Admin: 06/06/19 22:25 Dose: 40 mg Documented by: Bisacodyl (Dulcolax) 10 mg RECTAL .PRN X 1 PRN PRN Reason: Constipation Carvedilol (Coreg) 6.25 mg PO Q8 [facility] Last Admin: 06/07/19 13:34 Dose: Not Given Documented by: Duloxetine HCl (Cymbalta) 60 mg PO DAILY [facility] Last Admin: 06/07/19 08:02 Dose: 60 mg Documented by: Enoxaparin Sodium (Lovenox) 40 mg SC DAILY [facility] Famotidine (Pepcid) 20 mg PO DAILY [facility] Last Admin: 06/07/19 11:53 Dose: 20 mg Documented by: Flecainide Acetate (Tambocor) 100 mg PO BID [facility] Last Admin: 06/07/19 08:02 Dose: 100 mg Documented by: Latanoprost (Xalatan Opthalmic) 1 drop EACH EYE DAILY@2200 [facility] Lorazepam (Ativan) 0.5 mg PO QHS PRN PRN PRN Reason: Insomnia Last Admin: 06/06/19 22:27 Dose: 0.5 mg Documented by: Losartan Potassium (Cozaar) 100 mg PO DAILY [facility] Magnesium Hydroxide (Milk Of Magnesia) 30 ml PO .PRN X 1 PRN PRN Reason: Constipation Quetiapine Fumarate (Seroquel) 12.5 mg PO QHS [facility] Senna/Docusate Sodium (Senokot-S, Joselyn-Colace) 2 tablet PO BID [facility] Last Admin: 06/07/19 08:02 Dose: 2 tablet Documented by: Medical Necessity - Tobacco Use Smoking Status: Former smoker Tobacco Use: Cigarettes Assessment/Plan All Active Problems (Last Reviewed 10/09/18 @ 11:48 by Golden Kruger MD) Atrial fibrillation with RVR (Acute) Subtherapeutic international normalized ratio (INR) (Acute) Syncope and collapse (Acute) Iron deficiency anemia (Resolved) Stool incontinence (Acute) Fecal occult blood test positive (Acute) Acute CVA (cerebrovascular accident) (Resolved) Dehydration (Resolved) Heme + stool (Resolved) Hypokalemia (Resolved) Iron deficiency anemia due to chronic blood loss (Resolved) Junctional bradycardia (Resolved) Left facial numbness (Resolved) Migraine (Resolved) Paresthesias in left hand (Resolved) Supratherapeutic INR (Resolved) 79-year-old female with past medical history of chronic atrial fibrillation on Xarelto, hypertension, type II DM, hyperlipidemia, status post pacemaker who was seen in the [facility] ED on 05/23/19 after being found on the ground in her garage and diagnosed with an acute Right MCA stroke. She was flown to [facility] for Right ICA thrombectomy. 1. Debility secondary to acute right MCA stroke with flaccid left-sided paralysis, status post right ICA thrombectomy Hospital course was complicated by acute cytotoxic cerebral edema acute brain compression On aspirin, statin, beta-rachna 2. Hypertension, uncontrolled on losartan, coreg 6.25mg TID Allergy to amlodipine and hydralazine Will increase to 12.5mg TID, continue to monitor vitals 3. Paroxysmal atrial fibrillation, on flecainide, off Xarelto Will have to discuss with both neurology and cardiology on when to resume Xarelto 4. Type II DM, diet controlled, blood sugars are controlled 5. Anxiety/depression, on Ativan, Seroquel Check EKG in am to monitor for QTC prolongation 6. DVT PPx- Lovenox SC Code Visit Inpatient E&M: 65604 Subs Hosp L2
[2019-06-07 18:00] VITALS: BP 142/78; PULSE 61; RESP 18; TEMP 36.9; O2SAT 94
[2019-06-07 20:57] VITALS: BP 158/91; PULSE 62; RESP 18; TEMP 36.7; O2SAT 96
[2019-06-07] MEDS: Latanoprost 0.005% 1 Bottle 1 DRP EACH EYE (21:03)
[2019-06-07] MEDS: Atorvastatin Calcium 40 MG Tablet PO (21:04)
[2019-06-07 23:07] VITALS: BMI 23.8
[2019-06-08 00:38] VITALS: BP 163/81; PULSE 63; RESP 16; TEMP 36.9; O2SAT 95
[2019-06-08] MEDS: Enoxaparin 40 MG/0.4 ML Syringe SC (06:16)
[2019-06-08] MEDS: Carvedilol 6.25 MG Tablet PO ×3 (06:16→15:01)
[2019-06-08 06:39] VITALS: BP 173/90; PULSE 64; RESP 16; TEMP 36.8; O2SAT 96
[2019-06-08 07:00] VITALS: O2SAT 96
[2019-06-08] MEDS: Famotidine 20 MG Tablet PO (10:31)
[2019-06-08] MEDS: DULoxetine Hcl 60 MG Capsule PO (10:31)
[2019-06-08] MEDS: Flecainide 100 MG Tablet PO ×2 (10:32→20:03)
[2019-06-08] MEDS: Losartan Potassium 50 MG Tablet 100 MG PO (10:32)
[2019-06-08] MEDS: Aspirin 81 MG TAB.CHEW PO (10:32)
[2019-06-08 12:00] VITALS: BP 183/90; PULSE 65
[2019-06-08 15:22] VITALS: BMI 23.8
[2019-06-08 18:00] VITALS: BP 159/82; PULSE 60; RESP 16; TEMP 37; O2SAT 94
[2019-06-08 19:52] VITALS: BMI 23.8
[2019-06-08] MEDS: Carvedilol 12.5 MG Tablet PO (20:02)
[2019-06-08] MEDS: Atorvastatin Calcium 40 MG Tablet PO (20:02)
[2019-06-08] MEDS: QUEtiapine 25 MG Tablet 12.5 MG PO (20:03)
[2019-06-08] MEDS: Latanoprost 0.005% 1 Bottle 1 DRP EACH EYE (20:03)
[2019-06-08 22:00] VITALS: PULSE 60; RESP 16; O2SAT 94
[2019-06-09] VITALS: BP 169/96; PULSE 60; RESP 18; TEMP 36.7; O2SAT 95
[2019-06-09] MEDS: Carvedilol 12.5 MG Tablet PO ×3 (05:07→21:24)
--- NOTE | 2019-06-09 05:26 | NURSING ---
RT is in room to complete EKG.
[2019-06-09] MEDS: Acetaminophen 325 MG Tablet 650 MG PO ×2 (06:50→13:29)
[2019-06-09 07:00] VITALS: BP 184/97; PULSE 60; RESP 16; TEMP 36.8; O2SAT 95
[2019-06-09] MEDS: Flecainide 100 MG Tablet PO ×2 (08:48→21:18)
[2019-06-09] MEDS: Aspirin 81 MG TAB.CHEW PO (08:48)
[2019-06-09] MEDS: DULoxetine Hcl 60 MG Capsule PO (08:49)
[2019-06-09] MEDS: Enoxaparin 40 MG/0.4 ML Syringe SC (08:49)
[2019-06-09] MEDS: Famotidine 20 MG Tablet PO (08:49)
[2019-06-09] MEDS: Losartan Potassium 50 MG Tablet 100 MG PO (08:49)
[2019-06-09 10:22] VITALS: BMI 23.8
[2019-06-09 12:49] VITALS: BP 188/98
--- NOTE | 2019-06-09 13:29 | PCM.PN.HOSP ---
Subjective: Patient was seen and examined. She complains of neck pain, headache. BP remains elevated despite increase in Coreg yesterday Objective: Physical exam: General: Alert, Oriented x3, Cooperative, No apparent distress HEENT: Atraumatic, PERRLA, EOMI, Normocephalic Oral: Moist Mucosa Neck: Supple Lungs: Clear to auscultation, Normal air movement Cardiovascular: Regular rate, Regular Rhythm, Normal S1, Normal S2, No murmurs Abdomen: Bowel Sounds Present, Soft, Non Tender, Non-Distended, No Hepato-splenomegaly Extremities: No edema Skin: No rashes, No breakdown Musculoskeletal: No Tenderness to Palpation of Joints or Extremities Lymphatic: No Cervical, Supraclavicular, or Inguinal Adenopathy Neurological: - - Left-sided facial droop, left sided neglect, unable to extend gaze to the left side, flaccid paralysis of the left upper extremity as well as left lower extremity, increased tone Psych/Mental Status: Normal Affect, Appropriate Vitals/I&O's: Vital Signs Temp Pulse Resp BP Pulse Ox 98.3 F 60 16 188/98 H 95 06/09/19 07:00 06/09/19 07:00 06/09/19 07:00 06/09/19 12:49 06/09/19 07:00 Oxygen Delivery Method Room Air Weight: 69.1 kg Body Mass Index (BMI) 23.8 Finger Stick Blood Glucose 143 Intake and Output for Last 24 Hours 06/07/19 06/08/19 06/09/19 23:59 23:59 23:59 Intake Total 360 / 360 420 / 420 120 / 120 Output Total 150 / 150 150 / 150 Balance 210 / 210 270 / 270 120 / 120 Current Medications Acetaminophen (Tylenol) 650 mg PO Q6H PRN PRN PRN Reason: pain Last Admin: 06/09/19 06:50 Dose: 650 mg Documented by: [facility]) [facility] Last Admin: 06/09/19 08:48 Dose: 81 mg Documented by: Atorvastatin Calcium (Lipitor) 40 mg PO QHS [facility] Last Admin: 06/08/19 20:02 Dose: 40 mg Documented by: Bisacodyl (Dulcolax) 10 mg RECTAL .PRN X 1 PRN PRN Reason: Constipation Carvedilol (Coreg) 12.5 mg PO Q8 [facility] Last Admin: 06/09/19 05:07 Dose: 12.5 mg Documented by: Duloxetine HCl (Cymbalta) 60 mg PO DAILY [facility] Last Admin: 06/09/19 08:49 Dose: 60 mg Documented by: Enoxaparin Sodium (Lovenox) 40 mg SC DAILY [facility] Last Admin: 06/09/19 08:49 Dose: 40 mg Documented by: Famotidine (Pepcid) 20 mg PO DAILY [facility] Last Admin: 06/09/19 08:49 Dose: 20 mg Documented by: Flecainide Acetate (Tambocor) 100 mg PO BID [facility] Last Admin: 06/09/19 08:48 Dose: 100 mg Documented by: Latanoprost (Xalatan Opthalmic) 1 drop EACH EYE DAILY@2200 [facility] Last Admin: 06/08/19 20:03 Dose: 1 drop Documented by: Lorazepam (Ativan) 0.5 mg PO QHS PRN PRN PRN Reason: Insomnia Last Admin: 06/06/19 22:27 Dose: 0.5 mg Documented by: Losartan Potassium (Cozaar) 100 mg PO DAILY [facility] Last Admin: 06/09/19 08:49 Dose: 100 mg Documented by: Magnesium Hydroxide (Milk Of Magnesia) 30 ml PO .PRN X 1 PRN PRN Reason: Constipation Quetiapine Fumarate (Seroquel) 12.5 mg PO QHS [facility] Last Admin: 06/08/19 20:03 Dose: 12.5 mg Documented by: Senna/Docusate Sodium (Senokot-S, Joselyn-Colace) 2 tablet PO BID [facility] Last Admin: 06/09/19 08:49 Dose: Not Given Documented by: Medical Necessity - Tobacco Use Smoking Status: Former smoker Tobacco Use: Cigarettes Assessment/Plan All Active Problems (Last Reviewed 10/09/18 @ 11:48 by Golden Kruger MD) Atrial fibrillation with RVR (Acute) Subtherapeutic international normalized ratio (INR) (Acute) Syncope and collapse (Acute) Iron deficiency anemia (Resolved) Stool incontinence (Acute) Fecal occult blood test positive (Acute) Acute CVA (cerebrovascular accident) (Resolved) Dehydration (Resolved) Heme + stool (Resolved) Hypokalemia (Resolved) Iron deficiency anemia due to chronic blood loss (Resolved) Junctional bradycardia (Resolved) Left facial numbness (Resolved) Migraine (Resolved) Paresthesias in left hand (Resolved) Supratherapeutic INR (Resolved) 79-year-old female with past medical history of chronic atrial fibrillation on Xarelto, hypertension, type II DM, hyperlipidemia, status post pacemaker who was seen in the [facility] ED on 05/23/19 after being found on the ground in her garage and diagnosed with an acute Right MCA stroke. She was flown to [facility] for Right ICA thrombectomy. 1. Debility secondary to acute right MCA stroke with flaccid left-sided paralysis, status post right ICA thrombectomy Hospital course was complicated by acute cytotoxic cerebral edema, acute brain compression On aspirin, statin, beta-rachna 2. Hypertension, remains uncontrolled, on losartan, coreg 12.5mg TID Allergy to amlodipine and hydralazine Add hydrochlorothiazide, check BMP now and in am Continue to monitor vitals closely 3. Hypokalemia, replaced, recheck today and tomorrow especially with the start of HCTZ Will add potassium 20mEq po daily 4. Paroxysmal atrial fibrillation, on flecainide, off Xarelto Will have to discuss with both neurology and cardiology on when to resume Xarelto 5. Type II DM, diet controlled, blood sugars are controlled 6. Anxiety/depression, on Ativan, Seroquel QTC is 381 7. DVT PPx- Lovenox SC Code Visit Inpatient E&M: 09394 Subs Hosp L2
[2019-06-09 14:52] LABS: Anion Gap 7 (5-15); BUN 16 mg/dL (7-18); Calcium,Total 9.7 mg/dL (8.5-10.1); Chloride 101 mmol/L (98-107); Creatinine, Serum 1.07 mg/dL (0.55-1.02); EST Glomerular Filtration Rate 53 mL/min (>60); Est Glom Filt Rate - Afr Amer 64 mL/min (>60); Estimated Creatinine Clearance 42.14 ml/min; Glucose 202 mg/dL (74-106); Potassium 3.6 mmol/L (3.5-5.1); Sodium Level 136 mmol/L (136-145)
[2019-06-09] MEDS: hydroCHLOROthiazide 25 MG Tablet PO (17:35)
[2019-06-09 19:00] VITALS: BP 158/97; PULSE 62; RESP 18; TEMP 36.8; O2SAT 94
[2019-06-09 19:56] VITALS: BMI 23.8
[2019-06-09] MEDS: Acetaminophen 500 MG Tablet 1000 MG PO (21:17)
[2019-06-09] MEDS: QUEtiapine 25 MG Tablet 12.5 MG PO (21:18)
[2019-06-09] MEDS: Latanoprost 0.005% 1 Bottle 1 DRP EACH EYE (21:24)
[2019-06-09] MEDS: Atorvastatin Calcium 40 MG Tablet PO (21:24)
[2019-06-09 22:00] VITALS: PULSE 62; RESP 16; O2SAT 96
[2019-06-10 01:00] VITALS: BP 160/70; PULSE 60
[2019-06-10] MEDS: Carvedilol 12.5 MG Tablet PO ×3 (05:22→20:36)
[2019-06-10] MEDS: Acetaminophen 500 MG Tablet 1000 MG PO ×3 (05:22→20:35)
[2019-06-10 05:59] LABS: Anion Gap 10 (5-15); BUN 15 mg/dL (7-18); BUN/Creat Ratio 16.2 RATIO (10-20); Calcium,Total 9.9 mg/dL (8.5-10.1); Chloride 102 mmol/L (98-107); Creatinine, Serum 0.93 mg/dL (0.55-1.02); EST Glomerular Filtration Rate 62 mL/min (>60); Est Glom Filt Rate - Afr Amer 75 mL/min (>60); Estimated Creatinine Clearance 48.48 ml/min; Glucose 118 mg/dL (74-106); Potassium 3.3 mmol/L (3.5-5.1); Sodium Level 139 mmol/L (136-145)
[2019-06-10 07:00] VITALS: BP 162/98; PULSE 61; RESP 16; TEMP 36.8; O2SAT 97
[2019-06-10] MEDS: Famotidine 20 MG Tablet PO (07:53)
[2019-06-10] MEDS: Enoxaparin 40 MG/0.4 ML Syringe SC (07:53)
[2019-06-10] MEDS: Flecainide 100 MG Tablet PO ×2 (07:53→20:36)
[2019-06-10] MEDS: DULoxetine Hcl 60 MG Capsule PO (07:53)
[2019-06-10] MEDS: hydroCHLOROthiazide 25 MG Tablet PO (07:53)
[2019-06-10] MEDS: Senna/Docusate Sodium 1 Tablet 2 TABLET PO ×2 (07:53→20:35)
[2019-06-10] MEDS: Aspirin 81 MG TAB.CHEW PO (07:54)
[2019-06-10] MEDS: Losartan Potassium 50 MG Tablet 100 MG PO (07:54)
--- NOTE | 2019-06-10 09:59 | CT_ITS ---
STUDY: CT BRAIN WITHOUT CONTRAST REASON FOR EXAM: Female, 79 years old. Stroke, lethargy RADIATION DOSAGE (If Supplied By Facility): CTDIvol = ( 44.99 ) mGy, DLP = ( 745.49 ) mGycm TECHNIQUE: Transaxial CT imaging of the brain was performed without administration of intravenous contrast material. Individualized dose optimization techniques were used for this CT. COMPARISON: 05/23/2019 FINDINGS: Normal soft tissue structures. Normal calvarium. There is mild cerebral atrophy with widening of the extra-axial spaces and ventricular dilatation. Normal white matter tracts of the cerebral hemispheres. Normal basal ganglia and thalami. Normal brainstem. Normal cerebellum. There is no intracranial hemorrhage. Decreased attenuation of the right temporal and parietal lobe consistent with evolution of the subacute right middle cerebral artery infarct. Normal visualized paranasal sinuses. CT/Brain/Head without Contrast IMPRESSION: Further evolution of the subacute right middle cerebral artery infarct. No acute hemorrhage. Electronically Signed: Joel Michael MD at 10:30 EDT Tel , Service support ,
--- NOTE | 2019-06-10 10:07 | CASEMGMT ---
Addendum entered by Shannan Mcclellan 06/10/19 14:11: Daughter found living will and healthcare POA paperwork - copies placed on chart. pt named HPOA son, Yasir Franklin. Addendum entered by Shannan Mcclellan 06/10/19 10:20: Spoke with children separately to discuss further discharge plans if insurance cuts and home is not safe. Family already had chosen to have referrals made to [facility] for further placement, if necessary. Children confirmed pt does not have POA paperwork. Pt unable to complete paperwork at this time. Will continue to follow. Original Note: Social Work IDT met with patient, two daughters and son for Team Meeting. Pt was unable to be awoken for meeting. PT/OT/ST report pt very drowsy during sessions and unable to fully participate in therapies. Pt fell asleep during shower ADL this morning. Pt is requiring max or total assist 1-2 people for ADLS, transfers. Pt did take 2 steps in the parallel bars and several minutes on the NuStep machine to help trigger the brain to remember how to walk. Pt has left visual neglect and is a puree and honey thickened diet. Physician discontinued medications to assist in reducing daytime drowsiness. Children report pt was not on Seroquel at home but was started at [facility]. Children decided dexter Miller would be point person - [phone]. Explained insurance coverage - NRD 06/11 and continued stay is not guaranteed. Son inquired about appeal rights, explained those rights. Will continue to follow. NBA WeaverW
--- NOTE | 2019-06-10 10:34 | NURSING ---
Message left for Dr Chawla to update her that pt is here.
--- NOTE | 2019-06-10 11:24 | PCM.PN.NEU ---
Subjective: No issues overnight. Staff in the team meeting today. All questions were answered. Son and daughter at bedside. Further details of therapy per PT/OT/ST notes. Patient sleepy at present. Patient on Seroquel for possible circadian rhythm disturbances. Better control blood pressure, goal blood pressure less than 130/80 mmHg. Avoid hypotension. Check repeat CT head. - Physical Exam General: - - Drowsy at present. Easily arousable. Per nursing staff may not be sleeping well at night. HEENT: Normocephalic Neck: Supple Lungs: Normal air movement Cardiovascular: Normal S1, Normal S2 Abdomen: Bowel Sounds Present Extremities: No cyanosis Neurological: - - Drowsy but easily arousable, cranial nerves cannot be assessed at present, left-sided weakness, sensory/cerebellar examination deferred at present, mild dysarthria present. Vital Signs Temp Pulse Resp BP Pulse Ox 98.2 F 61 16 162/98 H 97 06/10/19 07:00 06/10/19 07:00 06/10/19 07:00 06/10/19 07:00 06/10/19 07:00 Oxygen Delivery Method Room Air Weight: 69.1 kg Body Mass Index (BMI) 23.8 Finger Stick Blood Glucose 143 Intake and Output for Last 24 Hours 06/08/19 06/09/19 06/10/19 23:59 23:59 23:59 Intake Total 420 / 420 360 / 360 Output Total 200 / 200 Balance 220 / 220 360 / 360 Laboratory Tests Past 24 Hrs 06/09/19 06/10/19 14:10 05:30 Sodium 136 139 Potassium 3.6 3.3 L Chloride 101 102 Carbon Dioxide 28.0 27.0 Anion Gap 7 10 BUN 16 15 Creatinine 1.07 H 0.93 Estim Creat Clear Calc 42.14 48.48 Est GFR (MDRD) Af Amer 64 75 Est GFR (MDRD) Non-Af 53 L 62 BUN/Creatinine Ratio 15.0 16.2 Glucose 202 H 118 H Calcium 9.7 9.9 Medical Necessity - Tobacco Use Smoking Status: Former smoker Tobacco Use: Cigarettes Assessment/Plan All Active Problems (Last Reviewed 10/09/18 @ 11:48 by Golden Kruger MD) Atrial fibrillation with RVR (Acute) Subtherapeutic international normalized ratio (INR) (Acute) Syncope and collapse (Acute) Iron deficiency anemia (Resolved) Stool incontinence (Acute) Fecal occult blood test positive (Acute) Acute CVA (cerebrovascular accident) (Resolved) Dehydration (Resolved) Heme + stool (Resolved) Hypokalemia (Resolved) Iron deficiency anemia due to chronic blood loss (Resolved) Junctional bradycardia (Resolved) Left facial numbness (Resolved) Migraine (Resolved) Paresthesias in left hand (Resolved) Supratherapeutic INR (Resolved) The patient is a 79 year old F with PMH of HTN, HLD, CAD, DM type II, A-fib with RVR, pacemaker, RUDY, anxiety and depression admitted to [facility] on 06/06/2019 with debility secondary to right MCA with right M1 occlusion s/p post thrombectomy, for > 3 hours of therapy daily with a goal of returning home at or near her prior level of independence. She presented to [facility] ER on 05/23/2019 due to patient was found laying on the ground in her garage with left-sided deficits. NIH was 20. CT of brain suggestive of thrombus in the right MCA and an early infarct in the right MCA territory. CTA head and neck with contrast impression right MCA occlusion. No TPA and patient was transferred to [facility]. On 05/23/19, neurosurgeon Dr. Doll formed the right MCA thrombectomy, due to right SC occlusion. Postprocedural right ICA arteriogram demonstrated TICI?2b revascularization. CT of head without contrast on 06/04/2019 right MCA territory infarct with decrease edema noted in resolution of previously noted mass-effect of the right lateral ventricle and resolution of previously noted midline shift. Scattered hemorrhage within the infarct is less well. No new hemorrhage is identified.. Unable to obtain MRI due to pacemaker. TTE done which showed ejection fraction 65 to 70% and RVSP 41-45 mmHg. LDL 116, HgbA1c 6.5%. Prior to hospitalization patient was on Xarelto 15 mg daily for A. fib, was discontinued by [facility]. Plan - PT for gait stability - OT for ADLs - ST - Right MCA infarct post thrombectomy on statin, asa, antihypertensives. Repeat CT head 06/10/2019 shows stable right MCA stroke with no new hemorrhage. Will start Eliquis 5 mg p.o. twice daily from 06/11/2019, stroke initially occurred on 05/23/2019. Will stop aspirin once Eliquis is started. - HTN on Losartan, HCTZ and Coreg. Goal blood pressure less than 130/80, avoid hypotension - A-fib- on flecainide xeralto discontinued by [facility]. Will start Eliquis 5 mg p.o. twice daily from 06/11/2019, stroke initially occurred on 05/23/2019. - DM type II on humalog S.C., accuchecks ac/hs, HgbA1c 6.5% - CAD on asa - HLD on lipitor LDL 116 - RUDY stable 06/07/19 H/H 33.8/10.9 - Anxiety/depression on cymbalta - Insomnia/visual hallucinations-hold Seroquel as patient is drowsy in the morning - Dysphagia on pureed, honey thickened liquids- ST to follow - Hypokalemia K+ 3.3, K-dur 40meq x1, - GI/DVT prophylaxis pepcid/lovenox, knee high nataly hose - Further medical management per hospitalist-consult - Analgesics as needed - Bowel protocol - F/U neurosurgeon Dr. Harrison, PCP, neurology, cardiology
[2019-06-10 13:00] VITALS: BP 138/71; PULSE 61
--- NOTE | 2019-06-10 13:41 | PN_ITS ---
Subjective: CC: Follow-up acute CVA Patient is a 79-year-old lady admitted to the inpatient rehab unit with significant debility secondary to acute right MCA stroke with residual left- sided paralysis Objective: GENERAL: cooperative HEENT: Atraumatic; EYES; Anicteric, Normal Conjunctiva NECK; supple, normal thyroid, RESPIRATORY: Diminished to auscultation CARDIOVASCULAR: Irregular S1 S2, GI: soft, non-tender, normoactive bowel sounds, : No Renal angle tenderness; EXTREMITIES: No edema, no clubbing, NEURO: Awake; left sided weakness SKIN: No Rash PSYCH;flat affect Vitals/I&O's: Vital Signs Temp Pulse Resp BP Pulse Ox 98.2 F 61 16 162/98 H 97 06/10/19 07:00 06/10/19 07:00 06/10/19 07:00 06/10/19 07:00 06/10/19 07:00 Oxygen Delivery Method Room Air Weight: 69.1 kg Body Mass Index (BMI) 23.8 Finger Stick Blood Glucose 143 Intake and Output for Last 24 Hours 06/08/19 06/09/19 06/10/19 23:59 23:59 23:59 Intake Total 420 / 420 360 / 360 Output Total 200 / 200 Balance 220 / 220 360 / 360 Laboratory Results 06/09/19 14:10: Sodium 136, Potassium 3.6, Chloride 101, Carbon Dioxide 28.0, Anion Gap 7, BUN 16, Creatinine 1.07 H, Estim Creat Clear Calc 42.14, Est GFR (MDRD) Af Amer 64, Est GFR (MDRD) Non-Af 53 L, BUN/Creatinine Ratio 15.0, Glucose 202 H, Calcium 9.7 06/10/19 05:30: Sodium 139, Potassium 3.3 L, Chloride 102, Carbon Dioxide 27.0, Anion Gap 10, BUN 15, Creatinine 0.93, Estim Creat Clear Calc 48.48, Est GFR (MDRD) Af Amer 75, Est GFR (MDRD) Non-Af 62, BUN/Creatinine Ratio 16.2, Glucose 118 H, Calcium 9.9 Current Medications Acetaminophen (Tylenol) 1,000 mg PO TID [facility] Last Admin: 06/10/19 05:22 Dose: 1,000 mg Documented by: Apixaban (Eliquis) 5 mg PO BID [facility], [facility] Admin: 06/10/19 07:54 Dose: 81 mg Documented by: Atorvastatin Calcium (Lipitor) 40 mg PO QHS [facility] Last Admin: 06/09/19 21:24 Dose: 40 mg Documented by: Bisacodyl (Dulcolax) 10 mg RECTAL .PRN X 1 PRN PRN Reason: Constipation Carvedilol (Coreg) 12.5 mg PO Q8 [facility] Last Admin: 06/10/19 05:22 Dose: 12.5 mg Documented by: Duloxetine HCl (Cymbalta) 60 mg PO DAILY [facility] Last Admin: 06/10/19 07:53 Dose: 60 mg Documented by: Famotidine (Pepcid) 20 mg PO DAILY [facility] Last Admin: 06/10/19 07:53 Dose: 20 mg Documented by: Flecainide Acetate (Tambocor) 100 mg PO BID [facility] Last Admin: 06/10/19 07:53 Dose: 100 mg Documented by: Hydrochlorothiazide (Hctz) 25 mg PO DAILY [facility] Last Admin: 06/10/19 07:53 Dose: 25 mg Documented by: Latanoprost (Xalatan Opthalmic) 1 drop EACH EYE DAILY@2200 [facility] Last Admin: 06/09/19 21:24 Dose: 1 drop Documented by: Losartan Potassium (Cozaar) 100 mg PO DAILY [facility] Last Admin: 06/10/19 07:54 Dose: 100 mg Documented by: Magnesium Hydroxide (Milk Of Magnesia) 30 ml PO .PRN X 1 PRN PRN Reason: Constipation Potassium Chloride [facility]Dur) [facility] Last Admin: 06/10/19 07:54 Dose: 20 meq Documented by: Senna/Docusate Sodium (Senokot-S, Joselyn-Colace) 2 tablet PO BID [facility] Last Admin: 06/10/19 07:53 Dose: 2 tablet Documented by: Medical Necessity - Tobacco Use Smoking Status: Former smoker Tobacco Use: Cigarettes Assessment/Plan All Active Problems (Last Reviewed 10/09/18 @ 11:48 by Golden Kruger MD) Atrial fibrillation with RVR (Acute) Subtherapeutic international normalized ratio (INR) (Acute) Syncope and collapse (Acute) Iron deficiency anemia (Resolved) Stool incontinence (Acute) Fecal occult blood test positive (Acute) Acute CVA (cerebrovascular accident) (Resolved) Dehydration (Resolved) Heme + stool (Resolved) Hypokalemia (Resolved) Iron deficiency anemia due to chronic blood loss (Resolved) Junctional bradycardia (Resolved) Left facial numbness (Resolved) Migraine (Resolved) Paresthesias in left hand (Resolved) Supratherapeutic INR (Resolved) Patient is a 79-year-old lady admitted to the inpatient rehab unit with significant debility secondary to acute right MCA stroke with residual left- sided paralysis 1. Acute right MCA ischemic stroke with residual left-sided paralysis. Patient underwent right ICA thrombectomy subsequently transferred to the rehab unit at the [facility] 2. Hypertension ~ blood pressure controlled, home medications continued with dose adjustment as needed 3. Paroxysmal atrial fibrillation Patient is on flecainide was on Xarelto which is currently being held. Her post thrombectomy. Was apparently complicated by acute cytotoxic cerebral edema with brain compression 4. Hypokalemia corrected per protocol 5. Diabetes mellitus type II ~Diet controlled, placed on Accu-Cheks a.c. and at bedtime and covered with sliding scale insulin 6. Depression with anxiety patient is on Seroquel as well as Ativan as needed 7. DVT prophylaxis SC Lovenox Code Visit Inpatient E&M: 91912 Subs Hosp L2
[2019-06-10 14:15] VITALS: BMI 23.8
[2019-06-10 19:29] VITALS: BP 140/81; PULSE 60; RESP 16; TEMP 37; O2SAT 93
[2019-06-10] MEDS: Atorvastatin Calcium 40 MG Tablet PO (20:36)
[2019-06-10] MEDS: Latanoprost 0.005% 1 Bottle 1 DRP EACH EYE (20:37)
[2019-06-10 21:59] VITALS: BMI 23.8
[2019-06-10 22:00] VITALS: PULSE 60; RESP 16; O2SAT 94
[2019-06-11] VITALS (7 sets, daily range): BP systolic 110–130; BP diastolic 66–82; PULSE 60–90; RESP 16–18; TEMP 36.4–36.6; O2SAT 95–97; BMI 23.8
--- NOTE | 2019-06-11 | RAD_ITS ---
STUDY: SWALLOWING STUDY REASON FOR EXAM: Female, 79 years old. CVA with swallowing difficulties TECHNIQUE: The examination was performed with Speech Pathology in attendance. Under fluoroscopic observation, the patient ingested thin barium, thick barium, barium pudding, and barium coated cracker. FLUOROSCOPY TIME: 3:57 minutes/seconds RADIOLOGIST INVOLVEMENT: Dr. Curry COMPARISON: None. FINDINGS: The following was observed during swallowing of the various mixtures of barium: Thin Barium: There was penetration and aspiration. Thick Barium: There was penetration and aspiration Barium Pudding: There was aspiration or laryngeal penetration. Barium Coated Cracker: This portion of the study was not performed RAD/Swallowing Function w/Video IMPRESSION: Penetration and aspiration was noted with thin barium through barium and pudding. The swallow study findings were discussed with the patient by the speech pathologist at the conclusion of the examination. Please see speech pathology report for more information and recommendations. The procedure was performed by the speech therapist under the direct supervision of Dr. Curry. Electronically Signed: Vasyl Curry, at 15:00 EDT Tel , Service support ,
--- NOTE | 2019-06-11 03:25 | NURSING ---
0320- Pt bedding found strewn onto floor several times this hs. Room temp adjusted as pt c/o being cold, yet, continues to kick blankets to floor. Pt very restless this hs. Pt has been found awake frequently upon rounding, which has been more frequently. Pt repositioned in bed by staff and encouraged to try to relax and get some sleep. Will continue to monitor.
[2019-06-11] MEDS: Acetaminophen 500 MG Tablet 1000 MG PO (05:33)
[2019-06-11] MEDS: APIXABAN 5 MG TABLET PO (05:33)
[2019-06-11] MEDS: Carvedilol 12.5 MG Tablet PO ×3 (05:33→20:11)
[2019-06-11] MEDS: Losartan Potassium 50 MG Tablet 100 MG PO (08:44)
[2019-06-11] MEDS: hydroCHLOROthiazide 25 MG Tablet PO (08:44)
[2019-06-11] MEDS: Aspirin 81 MG TAB.CHEW PO (08:44)
[2019-06-11 08:55] LABS: Bedside Glucose 127 mg/dL (70-110)
--- NOTE | 2019-06-11 09:54 | PN.NEURO_ITS ---
Subjective: No issues overnight. Care discussed with the nursing staff. - Physical Exam General: Alert HEENT: Normocephalic Neck: Supple Lungs: Normal air movement Cardiovascular: Normal S1, Normal S2 Abdomen: Bowel Sounds Present Extremities: No cyanosis Neurological: - - Conscious, awake, CN II to XII?left seventh UMN facial palsy, left-sided neglect, power 5 x 5 right upper and lower extremity, 0 x 5 power left upper extremity, 2 x 5 left lower extremity, denies any sensory loss, no cerebellar signs, left hemineglect and extension present, dysarthria present, gait deferred, reflexes + B/L B/S/T/K/A Psych/Mental Status: Normal Affect Vital Signs Temp Pulse Resp BP Pulse Ox 97.9 F 76 18 110/67 97 06/11/19 06:44 06/11/19 08:42 06/11/19 06:44 06/11/19 08:42 06/11/19 06:44 Oxygen Delivery Method Room Air Weight: 69.1 kg Body Mass Index (BMI) 23.8 Finger Stick Blood Glucose 143 Intake and Output for Last 24 Hours 06/09/19 06/10/19 06/11/19 23:59 23:59 23:59 Intake Total 360 / 360 Balance 360 / 360 POC Glucose 06/11/19 08:17 POC Glucose 127 H Medical Necessity - Tobacco Use Smoking Status: Former smoker Tobacco Use: Cigarettes Assessment/Plan All Active Problems (Last Reviewed 10/09/18 @ 11:48 by Golden Kruger MD) Atrial fibrillation with RVR (Acute) Subtherapeutic international normalized ratio (INR) (Acute) Syncope and collapse (Acute) Iron deficiency anemia (Resolved) Stool incontinence (Acute) Fecal occult blood test positive (Acute) Acute CVA (cerebrovascular accident) (Resolved) Dehydration (Resolved) Heme + stool (Resolved) Hypokalemia (Resolved) Iron deficiency anemia due to chronic blood loss (Resolved) Junctional bradycardia (Resolved) Left facial numbness (Resolved) Migraine (Resolved) Paresthesias in left hand (Resolved) Supratherapeutic INR (Resolved) The patient is a 79 year old F with PMH of HTN, HLD, CAD, DM type II, A-fib with RVR, pacemaker, RUDY, anxiety and depression admitted to [facility] on 06/06/2019 with debility secondary to right MCA with right M1 occlusion s/p post thrombectomy, for > 3 hours of therapy daily with a goal of returning home at or near her prior level of independence. She presented to [facility] ER on 05/23/2019 due to patient was found laying on the ground in her g arage with left-sided deficits. NIH was 20. CT of brain suggestive of thrombus in the right MCA and an early infarct in the right MCA territory. CTA head and neck with contrast impression right MCA occlusion. No TPA and patient was transferred to [facility]. On 05/23/19, neurosurgeon Dr. Doll formed the right MCA thrombectomy, due to right MA occlusion. Postprocedural right ICA arteriogram demonstrated TICI?2b revascularization. CT of head without contrast on 06/04/2019 right MCA territory infarct with decrease edema noted in resolution of previously noted mass-effect of the right lateral ventricle and resolution of previously noted midline shift. Scattered hemorrhage within the infarct is less well. No new hemorrhage is identified.. Unable to obtain MRI due to pacemaker. TTE done which showed ejection fraction 65 to 70% and RVSP 41-45 mmHg. LDL 116, HgbA1c 6.5%. Prior to hospitalization patient was on Xarelto 15 mg daily for A. fib, was discontinued by [facility]. Plan - PT for gait stability - OT for ADLs - ST - Right MCA infarct post thrombectomy on statin, asa, antihypertensives. Repeat CT head 06/10/2019 shows stable right MCA stroke with no new hemorrhage. Eliquis 5 mg p.o. twice daily from today 06/11/2019, stroke initially occurred on 05/23/2019. Will stop aspirin, as per patient she was not on aspirin at home at baseline. - HTN on Losartan, HCTZ and Coreg. Goal blood pressure less than 130/80, avoid hypotension - A-fib- on flecainide xeralto discontinued by [facility]. Will start Eliquis 5 mg p.o. twice daily from 06/11/2019, stroke initially occurred on 05/23/2019. - DM type II on humalog S.C., accuchecks ac/hs, HgbA1c 6.5% - CAD on asa - HLD on lipitor LDL 116 - RUDY stable 06/07/19 H/H 33.8/10.9 - Anxiety/depression on cymbalta - Insomnia/visual hallucinations-hold Seroquel as patient is drowsy in the morning - Dysphagia on pureed, honey thickened liquids- ST to follow - Hypokalemia K+ 3.3, K-dur 40meq x1, - GI/DVT prophylaxis pepcid/lovenox, knee high nataly hose - Further medical management per hospitalist-consult - Analgesics as needed - Bowel protocol - F/U neurosurgeon Dr. Harrison, PCP, neurology, cardiology
--- NOTE | 2019-06-11 11:14 | CASEMGMT ---
Continued stay review faxed to [facility] this day. Auth # [id number]. Continued stay approved. Next review date is 06/18/19. DAVID Weaver aware.
--- NOTE | 2019-06-11 13:05 | SP.MBSS_ITS ---
PRIMARY / SECONDARY DIAGNOSIS: Dysphagia/CVA REFERRING PHYSICIAN: Dr. Cano CURRENT DIET: NPO DENTITION: natural dentition w/ restorative work completed MENTAL STATUS: able to sufficiently participate in MBS RESPIRATORY STATUS: oxygenating on room air PREVIOUS MODIFIED BARIUM SWALLOW STUDY: MBS completed on 06/04/2019 at [facility]; revealed aspiration of thin, nectar, honey and pudding; recommended NPO w/ thin liquids trials under BOBBIN CLEANING MACHINE OPERATOR supervision only to assess readiness for a repeat MBS. REASON FOR REFERRAL: This patient was admitted to [facility] on 06/06/2019 w/ an order for a pureed texture/honey thickened liquid diet. Poor diet tolerance appreciated w/ frequent coughing/choking on current diet. Review of notes from [facility] re: care prior to [facility] admission MBS completed on 06/04/2019 which revealed aspiration of thin, nectar, honey and pudding. Was recommended NPO w/ thin liquids trials under BOBBIN CLEANING MACHINE OPERATOR supervision only to assess readiness for a repeat MBS. Per Herbarium Curator Martine Alex, it was reported to her that she was potentially to get a PEG but then was placed on a pureed texture/honey thickened liquid diet and purportedly was tolerating it well, therefore she was accepted to the [facility]. Documentation from [facility] is unclear re: events that transpired following MBS that led to the recommendation found in charting for a pureed texture/honey thickened liquid diet, liquids via straw w/ chin tuck and 2-3 swallows per bolus. Further assessment of swallow function under fluoroscopy was recommended d/t poor diet tolerance and inconsistent documentation received. MEDICAL HISTORY: Pt is a 79 YOF admitted to [facility] on 06/06/2019 following 05/23/2019 acute cerebrovascular accident involving the right middle cerebral artery. Pt.?s PMHx is significant for prior cerebrovascular accident (2010), migraines, hypertension, type II diabetes mellitus, status post pacemaker placement, arthritis, depression, and anxiety. STUDY FINDINGS: Patient participated in a Modified Barium Swallow (MBS) study on 06/11/2019. Dr. Curry was the radiologist present for this evaluation. This study was recorded in the lateral view and images were sent to PACs for storage. The following consistencies were presented to this patient for analysis of oropharyngeal swallow function: thin liquid, nectar thickened liquid, honey thickened liquid, pudding and a regular texture cookie. Results of the MBS are as follows: PENETRATION / ASPIRATION SCALE (ROSEN): 1 = does not enter airway 2 = enters airway/above vocal folds/ejected 3 = enters airway/above vocal folds/not ejected 4 = enters airway/contacts vocal folds/ejected 5 = enters airway/contacts vocal folds/not ejected 6 = enters airway/below vocal folds/ejected 7 = enters airway/below vocal folds/not ejected despite effort 8 = enters airway/below vocal folds/no effort PENETRATION / ASPIRATION SCALE (SCORE): 1.Thin liquid via teaspoon: 5 2.Thin liquid via teaspoon: 1 *noted coughing, suspect scant aspiration of prior penetrated contrast 3.Thin liquid via cup with chin tuck: 1 *chin tuck independently initiated 4.Thin liquid via cup with chin tuck: 7 *chin tuck independently initiated 5.[place] thickened liquid via straw: 1 6.[place] thickened liquids via straw: 3 *difficult to assess due to poor positioning of fluoroscopy unit which impeded view 7.Puddin *piecemeal deglutition 8.Honey thickened liquid via teaspoon with chin tuck: 8 *significant aspiration with no outward response *chin tuck independently initiated 9.Puddin *piecemeal deglutition IMPRESSION? ORAL PHASE CHARACTERIZED BY: * LABIAL SEAL: escape beyond interlabial space or lateral juncture; no extension beyond rosa border * TONGUE CONTROL DURING BOLUS MANIPULATION: posterior escape of less than half of bolus * BOLUS PREPARATION / MASTICATION: solid textures not assessed * BOLUS TRANSPORT / LINGUAL MOTION: slowed tongue motion * ORAL RESIDUE: residue collection on oral structures PHARYNGEAL PHASE CHARACTERIZED BY: * INITIATION OF PHARYNGEAL SWALLOW: bolus head at posterior laryngeal surface of epiglottis at first hyoid excursion * SOFT PALATE ELEVATION: no bolus between soft palate and pharyngeal wall * LARYNGEAL ELEVATION: partial superior movement of thyroid cartilage/partial approximation of arytenoids cartilage to epiglottic petiole * ANTERIOR HYOID EXCURSION: partial anterior movement * EPIGLOTTIC MOVEMENT: partial epiglottic inversion * LARYNGEAL VESTIBULE CLOSURE AT HEIGHT OF SWALLOW: incomplete laryngeal vestibule closure with narrow column of air/contrast in laryngeal vestibule * PHARYNGEAL STRIPPING WAVE: pharyngeal stripping wave present / diminished * PHARYNGOESOPHAGEAL SEGMENT OPENING: partial distension and partial duration; partial obstruction of flow * TONGUE BASE RETRACTION: narrow column of contrast between tongue base and posterior pharyngeal wall * PHARYNGEAL RESIDUE: collection of residue within or on pharyngeal structures ESOPHAGEAL PHASE CHARACTERIZED BY: * ESOPHAGEAL BOLUS CLEARANCE IN THE UPRIGHT POSITION: complete clearance; esophageal coating EFFECTS OF TREATMENT STRATEGIES ATTEMPTED: * CHIN TUCK POSTURE = inconsistent effect * RIGHT/LEFT HEAD TURN = not effective * CUED EXPECTORATION = not effective * DOUBLE SWALLOW = effective ? INTERPRETATION OF RESULTS Patient presents with moderate to severe oropharyngeal dysphagia (R13.12) secondary to acute cerebrovascular accident involving the right middle cerebral artery. Swallow function is marked by suboptimal lingual control w/ premature pharyngeal bolus entry and delayed pharyngeal swallow onset to varying degrees and reduced closure of the airway during deglutition attributed to reduced laryngeal elevation and anterior hyoid excursion w/ delayed/complete epiglottic inversion resulting in penetration/aspiration. Cough response to aspiration varied across trials w/ cough in response to suspected delayed scant aspiration thin liquid penetration during a prior thin liquid trial. Incomplete pharyngeal bolus clearance d/t mildly reduced tongue base retraction w/ diminished posterior pharyngeal stripping wave action resulted in residue retention w/in the pyriform sinuses w/ large volume aspiration of honey thickened liquid spilling from the pyriforms into the airway to be SILENTLY ASPIRATED. Inconsistent response to penetration/aspiration t/o study. The patient?s cough response was insufficient to expel laryngeal vestibule penetrated or laryngotracheal aspiration. RECOMMENDATIONS * DIET: NPO w/ non-oral means of nutrition/hydration/medication * NEED FOR A REPEAT MBS: Would strongly discourage advancement to PO intake without completion of a repeat modified barium swallow study due to the extent of aspirate identified that was SILENT in nature. Recommend a repeat modified barium swallow study within 2-4 weeks (if clinically appropriate) to further assess the presence and extent of silent and overt aspiration prior to advancing diet. * TURCIOS FREE WATER PROTOCOL (FFWP): Would consider implementation of the Turcios Free Water Protocol (FFWP) following Patient and family education for improved hydration, comfort and to provide additional opportunities to swallow. * JUSTIFICATION FOR ADDITIONAL SKILLED SPEECH LANGUAGE INTERVETION: Patient requires intensive skilled speech-language intervention targeting ongoing assessment of swallow function and implementation of oropharyngeal strengthening exercises to facilitate improved airway protection and reduced aspiration risk, as well as ongoing patient and family education. * ADDITIONAL COMMENTS/RECOMMENDATIONS: Results and recommendations were discussed with the Patient immediately following MBS completion, with the Patient verbalizing understanding and agreement with all recommendations and education provided. Highly suspect that continued education and reinforcement of recommendations will be necessary. Sherron Malloy M.A., CCC-BOBBIN CLEANING MACHINE OPERATOR Speech Language Pathologist [address] [address] [email or web address] [phone]
--- NOTE | 2019-06-11 13:15 | NURSING ---
off floor to cookie swallow.
--- NOTE | 2019-06-11 14:16 | NURSING ---
back to floor from cookie swallow
--- NOTE | 2019-06-11 14:52 | CHAPLAIN ---
Type of Pastoral Visit _x__ Initial Visit ___ Follow-up Visit ___ On-call Visit ___ General Patient Visit ___ Spiritual Assessment ___ Family Conference ___ Bereavement ___ Rapid Response ___ Code Blue ___ Other (describe below) Pastoral Care Referral From _x__ Patient ___ Family ___ Nurse ___ Physician ___ Line Clearance Foreman ___ Benefits Officer ___ Other (describe below) Sacrament/Intervention _x__ Active listening ___ Anointing ___ Tenriism ___ Bereavement ___ Communion ___ Tianna exploration ___ ___ Life review ___ Prayer ___ Reconciliation ___ Sacrament of Sick _x__ Supportive presence ___ Wedding ___ Other (describe below) Pastoral Comments
--- NOTE | 2019-06-11 15:00 | NURSING ---
Dr Khan consulted for peg tube evaluation.
--- NOTE | 2019-06-11 15:05 | NURSING ---
pt is NPO. ok to give essential medications crushed with applesauce..
[2019-06-11] MEDS: 0.9% Normal Saline 1,000 ML 50 ML IV (16:14)
--- NOTE | 2019-06-11 17:41 | NURSING ---
Addendum entered by Ivet Mukherjee 06/11/19 17:50: spoke with daughter Jaylyn, not Angela Original Note: spoke with pt's daughter Angela in regards to peg tube placement. Pt's family is to have a discussion and talk with the pt to see if pt is willing to have peg tube placement d/t pt aspirating with intake. Dr Khan consulted and will see pt tomorrow and possible do surgery afternoon. Angela is aware that we will need a decision by tomorrow afternoon.
[2019-06-11] MEDS: Latanoprost 0.005% 1 Bottle 1 DRP EACH EYE (20:07)
--- NOTE | 2019-06-11 20:15 | NURSING ---
Pt family at bedside and nurse inquired about PEG Tube placement. Pt stated she understood the need for the PEG tube and agreed with getting the PEG tube placed by Dr Khan. Pt is lucid at this time and speaking with reason. Family stated they had discussed this matter at length with pt. Pt states she needs the PEG tube d/t swallow study results.
[2019-06-12 02:00] VITALS: BP 112/62; PULSE 60
[2019-06-12] MEDS: Acetaminophen 500 MG Tablet 1000 MG PO ×3 (06:35→21:00)
[2019-06-12] MEDS: Carvedilol 12.5 MG Tablet PO ×3 (06:35→21:00)
[2019-06-12 08:00] VITALS: BP 141/85; PULSE 61; RESP 16; TEMP 36.6; O2SAT 94
[2019-06-12] MEDS: hydroCHLOROthiazide 25 MG Tablet PO (08:28)
[2019-06-12] MEDS: Flecainide 100 MG Tablet PO ×2 (08:28→21:00)
[2019-06-12] MEDS: Losartan Potassium 50 MG Tablet 100 MG PO (08:29)
[2019-06-12] MEDS: DULoxetine Hcl 60 MG Capsule PO (08:30)
--- NOTE | 2019-06-12 09:50 | PN_ITS ---
Subjective: CC follow-up acute CVA Patient seen resting comfortably in her room. Patient scheduled to undergo PEG tube placement after failing speech and swallow eval Objective: GENERAL: cooperative HEENT: Atraumatic; EYES; Anicteric, Normal Conjunctiva NECK; supple, normal thyroid, RESPIRATORY: Diminished to auscultation CARDIOVASCULAR: Irregular S1 S2, GI: soft, non-tender, normoactive bowel sounds, : No Renal angle tenderness; EXTREMITIES: No edema, no clubbing, NEURO: Awake; left sided weakness SKIN: No Rash PSYCH;flat affect Vitals/I&O's: Vital Signs Temp Pulse Resp BP Pulse Ox 97.8 F 61 16 141/85 H 94 06/12/19 08:00 06/12/19 08:00 06/12/19 08:00 06/12/19 08:00 06/12/19 08:00 Oxygen Delivery Method Room Air Weight: 62.7 kg Body Mass Index (BMI) 23.8 Finger Stick Blood Glucose 143 Current Medications Acetaminophen (Tylenol) 1,000 mg PO TID [facility] Last Admin: 06/12/19 06:35 Dose: 1,000 mg Documented by: Aspirin (Aspirin, Baby) 81 mg PO DAILY@0800 [facility] Last Admin: 06/12/19 09:18 Dose: Not Given Documented by: Atorvastatin Calcium (Lipitor) 40 mg PO QHS [facility] Last Admin: 06/11/19 20:11 Dose: Not Given Documented by: Bisacodyl (Dulcolax) 10 mg RECTAL .PRN X 1 PRN PRN Reason: Constipation Carvedilol (Coreg) 12.5 mg PO Q8 [facility] Last Admin: 06/12/19 06:35 Dose: 12.5 mg Documented by: Duloxetine HCl (Cymbalta) 60 mg PO DAILY [facility] Last Admin: 06/12/19 08:30 Dose: 60 mg Documented by: Famotidine (Pepcid) 20 mg PO DAILY [facility] Last Admin: 06/12/19 09:18 Dose: Not Given Documented by: Flecainide Acetate (Tambocor) 100 mg PO BID [facility] Last Admin: 06/12/19 08:28 Dose: 100 mg Documented by: Hydrochlorothiazide (Hctz) 25 mg PO DAILY [facility] Last Admin: 06/12/19 08:28 Dose: 25 mg Documented by: Sodium Chloride () 1,000 mls @ 50 mls/hr IV .Q20H [facility] Last Admin: 06/11/19 16:14 Dose: 50 mls/hr Documented by: Latanoprost (Xalatan Opthalmic) 1 drop EACH EYE DAILY@2200 [facility] Last Admin: 06/11/19 20:07 Dose: 1 drop Documented by: Losartan Potassium (Cozaar) 100 mg PO DAILY [facility] Last Admin: 06/12/19 08:29 Dose: 100 mg Documented by: Magnesium Hydroxide (Milk Of Magnesia) 30 ml PO .PRN X 1 PRN PRN Reason: Constipation Potassium Chloride (K-Dur) 20 meq PO DAILYCM [facility] Last Admin: 06/12/19 08:28 Dose: 20 meq Documented by: Senna/Docusate Sodium (Senokot-S, Joselyn-Colace) 2 tablet PO BID [facility] Last Admin: 06/12/19 09:18 Dose: Not Given Documented by: Sodium Chloride () 5 - 15 ml IV UD PRN PRN Reason: SALINE FLUSH Medical Necessity - Tobacco Use Smoking Status: Former smoker Tobacco Use: Cigarettes Assessment/Plan All Active Problems (Last Reviewed 10/09/18 @ 11:48 by Golden Kruger MD) Atrial fibrillation with RVR (Acute) Subtherapeutic international normalized ratio (INR) (Acute) Syncope and collapse (Acute) Iron deficiency anemia (Resolved) Stool incontinence (Acute) Fecal occult blood test positive (Acute) Acute CVA (cerebrovascular accident) (Resolved) Dehydration (Resolved) Heme + stool (Resolved) Hypokalemia (Resolved) Iron deficiency anemia due to chronic blood loss (Resolved) Junctional bradycardia (Resolved) Left facial numbness (Resolved) Migraine (Resolved) Paresthesias in left hand (Resolved) Supratherapeutic INR (Resolved) Patient is a 79-year-old lady admitted to the inpatient rehab unit with significant debility secondary to acute right MCA stroke with residual left- sided paralysis 1. Acute right MCA ischemic stroke with residual left-sided paralysis. Patient underwent right ICA thrombectomy subsequently transferred to the rehab unit at the [facility] ~06/12/2019: Patient scheduled to undergo PEG tube placement after failing speech and swallow eval 2. Hypertension ~ blood pressure controlled, home medications continued with dose adjustment as needed 3. Paroxysmal atrial fibrillation Patient is on flecainide was on Xarelto which is currently being held. Her post thrombectomy. Was apparently complicated by acute cytotoxic cerebral edema with brain compression 4. Hypokalemia corrected per protocol 5. Diabetes mellitus type II ~Diet controlled, placed on Accu-Cheks a.c. and at bedtime and covered with sl iding scale insulin 6. Depression with anxiety patient is on Seroquel as well as Ativan as needed 7. DVT prophylaxis SC Lovenox Code Visit Inpatient E&M: 56853 Subs Hosp L2
[2019-06-12] MEDS: 0.9% Normal Saline 1,000 ML 50 ML IV (12:15)
--- NOTE | 2019-06-12 12:53 | PCM.PN.NEU ---
Subjective: Patient to have peg placement on 06/13/19 @ [address] Khan d/t failed MBS, dysphagia. Patient continues to tolerate therapies. - Physical Exam General: Alert - x2-3, prompting for place/city, Cooperative, - - can be forgetful HEENT: Atraumatic, PERRLA, EOMI, - - left hemianopia Oral: Moist Mucosa Neck: Supple, No JVD Lungs: Clear to auscultation, Diminished - lower lobes Cardiovascular: Regular rate, Regular Rhythm Abdomen: Bowel Sounds Present, Soft, Non Tender Extremities: No clubbing, No cyanosis, No edema Neurological: Cranial nerves II-XII grossly intact - except left heimianopia, left facial droop., Deep Tendon Reflexes 2+/4 and Symmetrical, - - Motor strength RUE/RLE 5/5, LUE 0/5, LLE 3/5 Psych/Mental Status: Normal Affect, - - a/o x2-3, cooperative, pleasant, redirects easily Vital Signs Temp Pulse Resp BP Pulse Ox 97.8 F 61 16 141/85 H 94 06/12/19 08:00 06/12/19 08:00 06/12/19 08:00 06/12/19 08:00 06/12/19 08:00 Oxygen Delivery Method Room Air Weight: 62.7 kg Body Mass Index (BMI) 23.8 Finger Stick Blood Glucose 143 Intake and Output for Last 24 Hours 06/10/19 06/11/19 06/12/19 23:59 23:59 23:59 Intake Total 1000 / 1000 Balance 1000 / 1000 Medical Necessity - Tobacco Use Smoking Status: Never smoker Tobacco Use: Cigarettes Assessment/Plan All Active Problems (Last Reviewed 10/09/18 @ 11:48 by Golden Kruger MD) Atrial fibrillation with RVR (Acute) Subtherapeutic international normalized ratio (INR) (Acute) Syncope and collapse (Acute) Iron deficiency anemia (Resolved) Stool incontinence (Acute) Fecal occult blood test positive (Acute) Acute CVA (cerebrovascular accident) (Resolved) Dehydration (Resolved) Heme + stool (Resolved) Hypokalemia (Resolved) Iron deficiency anemia due to chronic blood loss (Resolved) Junctional bradycardia (Resolved) Left facial numbness (Resolved) Migraine (Resolved) Paresthesias in left hand (Resolved) Supratherapeutic INR (Resolved) The patient is a 79 year old F with PMH of pulmonary HTN, HLD, CAD, DM type II, A-fib with RVR, pacemaker, RUDY, anxiety and depression admitted to [facility] on 06/06/2019 for debility secondary to right MCA post thrombectomy, for 3 hours of therapy daily with a goal of returning home at or near her prior level of independence. She presented to [facility] ER on 05/23/2019 due to patient was found laying on the ground in her garage with left-sided deficits. Pressure was 161/90 with heart rate of 60. NIH was 20. CT of brain suggestive of thrombus in the right MCA and an early infarct in the right MCA territory. CTA head and neck with contrast impression right MCA occlusion. No TPA and patient was transferred to [facility]. On 05/23/19, neurosurgeon Dr. Doll formed the right MCA thrombectomy, due to right [place] occlusion. Postprocedural right ICA arteriogram demonstrated TICI?2b revascularization. CT of head without contrast on 06/04/2019 right MCA territory infarct with decrease edema noted in resolution of previously noted mass-effect of the right lateral ventricle and resolution of previously noted midline shift. Scattered hemorrhage within the infarct is less well seen in particular the right basal ganglia hemorrhage is less tense. No new hemorrhage is identified.. Unable to obtain MRI due to pacemaker. TTE done which showed ejection fraction 65 to 70% and RVSP 41-45 mmHg. LDL 116, HgbA1c 6.5%. Prior to hospitalization patient was on Xarelto 15 mg daily for A. fib, currently has been stopped. Patient lives with niece in a two-story house with first-floor set up, 2 steps to enter. Patient was independent with all ADLs, mobility, and driving prior to hospitalization. Plan - PT for mobility - OT for ADLs - ST for evaluation - Right MCA infarct post thrombectomy on statin, asa, antihypertensives - Pulmonary HTN on valsartan and coreg hold if SBP <130 - A-fib with RVR on flecainide xeralto discontinued - DM type II on humalog S.C., accuchecks ac/hs, HgbA1c 6.5% - CAD on asa - HLD on lipitor LDL 116 - RUDY stable 06/07/19 H/H 33.8/10.9 - Anxiety/depression on cymbalta - Insomnia/visual hallucinations seroquel d/c d/t increase tiredness, sleep hygiene, avoid naps daily, up in chair, increase activity - Dysphagia failed MBS peg placement on 06/13/[address] Khan - Hypokalemia on 06/10 K+3.3 on K-dur - GI/DVT prophylaxis pepcid/lovenox, knee high nataly hose - Medical management per hospitalist-consult - Analgesics as needed - Bowel protocol - F/U neurosurgeon Dr. Harrison, PCP, neurology, cardiology
[2019-06-12] MEDS: Aspirin 81 MG TAB.CHEW PO (13:31)
[2019-06-12 14:00] VITALS: BP 146/78
[2019-06-12 14:46] VITALS: BMI 23.8
[2019-06-12 20:00] VITALS: BP 124/68; PULSE 62; RESP 16; TEMP 36.6; O2SAT 95
[2019-06-12] MEDS: Latanoprost 0.005% 1 Bottle 1 DRP EACH EYE (20:59)
[2019-06-12] MEDS: Atorvastatin Calcium 40 MG Tablet PO (21:06)
[2019-06-13] VITALS (9 sets, daily range): BP systolic 105–169; BP diastolic 50–95; PULSE 60–65; RESP 16–18; TEMP 36.4–36.6; O2SAT 94–98; BMI 23.8
--- NOTE | 2019-06-13 07:12 | HP.PCM_ITS ---
History of Present Illness Date of Admission: 06/13/19 The patient is a 79 year old F admitted for inpatient rehab to the hospital. The patient had a CVA on 05/23/2019. Patient was noted to have MCA occlusion. Patient failed swallow study and is requiring PEG tube placement for feeding. Past Medical/Surgical History - Planned Operation Planned Operative Procedure/s: EGD/PEG TUBE PLACEMENT Date of Operative Procedure: 06/13/19 Permit Signed: No S.O.S: No Is This Patient Having a Total Joint: No - Previous Hospitalizations/Surgeries HX Hospitalizations: Yes - CURRENT PT REHAB UNIT HX of Surgeries: appendectomy, cataract, hysterectomy, R knee arthroscopy. 2014 block lumbar/ Basali. lumbar discectomy per hx Any Problems With Anesthesia: No You/Your Family Experience Fever (Hyperthermia) With Anes: No Cholinesterase deficiency: No - Cardiovascular Hx Chest Pain within Last 2 months: No Hx of Irregular Heartbeat and/or Afib: Yes - WHG/Afib, sick sinus syndrome Hx Heart Attack: No Hx Congestive Heart Failure: Yes Hx Rheumatic Fever: No Hx Hypertension: Yes - controlled with med Hx Internal Defibrillator: No Hx Pacemaker: Yes When Was Last Pacemaker Check: 04/15/19 Pacemaker Form Completed by Physician and on Chart: Yes Hx Cardiac Catheterization: Yes - 2009 What facility was last heart cath performed: [facility] Date of last Heart Cath: 2009 Hx Cardiac Surgery/Stents/Etc.: No Hx Stress Test: Yes - stress/echo 2017 HX Edema: No Hx Pain in Legs when Walking/Leg Cramps: No - . - Respiratory Chronic Cough: No HX of Shortness of Breath: Yes - with stairs Hoarseness: No Hx Chronic Obstructive Pulmonary Disease (COPD): No Hx Asthma: No Hx Emphysema: No Hx Sleep Apnea: No CPAP: No BIPAP: No Hx Oxygen Use at Home: No Hx Respiratory Tract Infection/Cold (presently): No Do You Snore Loudly (louder than talking or can be heard): No Do You Often Feel Tired/ Fatigued/ Sleepy Dring Daytime?: Yes Has Anyone Observed You Stop Breathing During Sleep?: No Result (for STOP score): Positive Hx Smoking: No Smoking Status: Never smoker - Gastrointestinal Hx Gastroesophageal Reflux: Yes Controlled With Meds: Yes - pepcid Hx Gastrointestinal Disorders: No Hx Gastrointestinal Bleed: No Hx Ulcer: No Hx Hiatal Hernia: No Difficulty Chewing/Swallowing: Yes - swallowing Recent Onset of Swallowing Problems: Yes - cva 05/23/19 Special diet followed at home: Yes - npo Hx Unplanned Weight Loss of 20#: No HX Unplanned Weight Gain of 20#: No - Neurological Hx Seizures: No HX Syncope/Blackout Spells/Unconsciousness: Yes - dizziness per hx Hx CVA/Stroke: Yes - 05/23/19. flaccidleft side/aphasia/ slurred speech Hx Transient Ischemic Attacks (TIA): No Hx Multiple Sclerosis: No Hx Parkinson's Disease: No Hx Head/Neck Injury: No Hx Headaches: No Hx Back Injury/Pain: Yes - BACK OR X2 Recent Onset of Speech Difficulty: No Restless Legs: No Does patient have nerve stimulator: No Patient instructed to have device shut off: No Rep notified?: No - Blood Disorder Hx Leukemia: No Bleeding Tendencies: Yes - eliquis on hold for PEG Hx Deep Vein Thrombosis: No Hx High Cholesterol: Yes - on med Blood Transmitted Disease: No Hx Hepatitis: No Hx Cirrhosis: No Hx Anemia: Yes - per hx Hx Blood Disorders: No - Reproduction : No Is Patient Lactating: No Hx Hysterectomy: Yes Hx Tubal Ligation: No Are You Post Menopause: Yes - Genitourinary Hx Renal Disease: No - incont at times Hx Dialysis: No - Musculoskeletal Hx Arthritis: Yes Hx Rheumatoid Arthritis: No Hx Gout: No Recent Onset of an Orthopedic Problem: No - Endocrine Hx Diabetes: Yes - no meds currently Insulin: No Thyroid Disease: No Hx Steroid Therapy: No - Psycho/Social Hx Substance Use: No Hx Alcohol Use: No Hx Anxiety: No Hx Depression: Yes - on med Mental Illness: No Hx Dementia: No - impaired cognition since CVA - Miscellaneous Hx Cancer: No Recent Exposure to Contagious Disease: No Active MRSA: No Hx of C-Diff: No Any Loose Teeth: No Additional information pertinent to anesthesia:: phone interview with RN Allergies hydralazine Adverse Reaction (Severe, Verified 05/23/19 14:30) Itching amlodipine besylate [From [facility]] Adverse Reaction (Intermediate, Verified 05/23/19 14:30) Itching Maternal Family History: Family History (Last Reviewed 12/06/18 @ 08:28 by Rupa Martines) Sister Diabetes Hypertension Father Heart disease Hypertension Myocardial infarction Mother Cancer Stroke - in maternal CVA, - - mother of lung CA Paternal Family History: Family History (Last Reviewed 12/06/18 @ 08:28 by Rupa Martines) Sister Diabetes Hypertension Father Heart disease Hypertension Myocardial infarction Mother Cancer Heart Disease, Hypertension, Stroke Sibling Family History: Family History (Last Reviewed 12/06/18 @ 08:28 by Rupa Martines) Sister Diabetes Hypertension Father Heart disease Hypertension Myocardial infarction Mother Cancer - - she has a younger sister who had a stroke from a AVM in the brain - Discharge Is Pt Admitted From a Mcfp, or a Fdc: Yes Who Could Help: son,POA After D/C, Where Do you Plan to Go: Rehabilitation - From the PAT History Number of Risk Factors: 4 Patient Problems: Active and Suspected Problems (Last Updated 06/12/19 @ 14:09 by Kathi Shields) CVA (cerebral vascular accident) (Acute 05/2019) 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 w/ Right MCA thrombectomy 05/23/19 - Physical Exam General: Alert, Cooperative Neck: No JVD Lungs: Normal air movement Cardiovascular: Regular rate, Regular Rhythm Abdomen: Soft, Non Tender, Non-Distended Skin: No rashes Musculoskeletal: No Muscle Wasting Lymphatic: No Cervical, Supraclavicular, or Inguinal Adenopathy Neurological: Facial Droop, Slurred Speech Psych/Mental Status: Normal Affect Body Mass Index (BMI) 23.8 Finger Stick Blood Glucose 143 Assessment/Plan All Active Problems (Last Updated 06/12/19 @ 14:09 by Kathi Shields) CVA (cerebral vascular accident) (Acute 05/2019) Acute CVA (cerebrovascular accident) (Resolved) Atrial fibrillation with RVR (Resolved) Dehydration (Resolved) Fecal occult blood test positive (Resolved) Heme + stool (Resolved) Hypokalemia (Resolved) Iron deficiency anemia due to chronic blood loss (Resolved) Junctional bradycardia (Resolved) Left facial numbness (Resolved) Migraine (Resolved) Paresthesias in left hand (Resolved) Subtherapeutic international normalized ratio (INR) (Resolved) Supratherapeutic INR (Resolved) 79-year-old female status post CVA 1. Patient is requiring PEG tube for tube feeds due to dysphagia from her CVA. I discussed this with her in detail. I discussed the risks including but not limited to bleeding, infection, injury to colon, PEG tube dislodgment and clogging. Patient understands the risks and is willing to proceed. I will discuss this with the patient's family as well. Patient's Eliquis has been held for 48 hours. Aspirin has been continued per request of neurology. Eliel Khan MD Pager: [facility] [address] [place] [address] [address] [place] [address] Office: Surgery Risks - Colonoscopy Risks Include but are not Limited To: Risks include but are not limited to: Bleeding, perforation requiring further surgery, inability to complete colonoscopy requiring barium enema.
[2019-06-13] MEDS: 0.9% Normal Saline 1,000 ML 50 ML IV ×3 (10:12→13:52)
--- NOTE | 2019-06-13 11:21 | PCM.PN.BLA ---
Progress Note PEG tube successfully placed today with minimal bleeding. Patient may resume Eliquis tomorrow. Okay to start tube feeds and use feeding tube for medications tomorrow.
--- NOTE | 2019-06-13 11:23 | OP.ENDO_ITS ---
06/13/2019 Nafisa Chawla Re : Upper GI endoscopy procedure for Gloria Jeffrey Denton This procedure was performed on June. My impressions and recommendations are as follows: Impressions : - An externally removable PEG placement was successfully completed. - No specimens collected. Recommendations : - Return patient to referring hospital for ongoing care. - Resume Eliquis (apixaban) at prior dose tomorrow. - Please follow the post-PEG recommendations including: Nutrition consult for formula and volume, external bolster snug to abdominal wall, change dressing once per day, change dressing on top of bumper daily, may use PEG tomorrow for feedings, check site for bleeding q 4 hrs and clean site with soap and water daily and dry thoroughly. My findings are described in the full procedure note, which is enclosed. If I can be of further assistance, please feel free to contact me at Doctor phone number(s): , Work: . Sincerely, Eliel Khan MD 06/13/2019 11:22:49 AM This report has been signed electronically.
--- NOTE | 2019-06-13 12:30 | NURSING ---
Returned back from surgery department, kinga at bedside, patient resting with eyes closed. Peg site free of drainage, dry and intact dressing noted.
[2019-06-13] MEDS: Carvedilol 12.5 MG Tablet PO (13:48)
--- NOTE | 2019-06-13 13:50 | PN.NEURO_ITS ---
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 Care discussed with nursing staff. Patient had successful PEG placement done today. - Physical Exam General: Alert HEENT: Normocephalic Neck: Supple Lungs: Normal air movement Cardiovascular: Normal S1, Normal S2 Abdomen: Bowel Sounds Present Extremities: No cyanosis Neurological: - - Conscious, awake, CN II to XII?left seventh UMN facial palsy, left-sided neglect, power 5 x 5 right upper and lower extremity, 0 x 5 power left upper extremity, 2 x 5 left lower extremity, denies any sensory loss, no cerebellar signs, left hemineglect and extension present, dysarthria present, gait deferred, reflexes + B/L B/S/T/K/A Psych/Mental Status: Normal Affect Vital Signs Temp Pulse Resp BP Pulse Ox 97.9 F 65 18 165/95 H 96 06/13/19 13:00 06/13/19 13:00 06/13/19 13:00 06/13/19 13:00 06/13/19 13:00 Oxygen Delivery Method Room Air Weight: 62.7 kg Body Mass Index (BMI) 23.8 Finger Stick Blood Glucose 143 Intake and Output for Last 24 Hours 06/11/19 06/12/19 06/13/19 23:59 23:59 23:59 Intake Total 1202.5 / 1202.5 797.5 / 797.5 Balance 1202.5 / 1202.5 797.5 / 797.5 Medical Necessity - Tobacco Use Smoking Status: Never smoker Tobacco Use: Cigarettes Assessment/Plan All Active Problems (Last Updated 06/12/19 @ 14:09 by Kathi Shields) CVA (cerebral vascular accident) (Acute 05/2019) Acute CVA (cerebrovascular accident) (Resolved) Atrial fibrillation with RVR (Resolved) Dehydration (Resolved) Fecal occult blood test positive (Resolved) Heme + stool (Resolved) Hypokalemia (Resolved) Iron deficiency anemia due to chronic blood loss (Resolved) Junctional bradycardia (Resolved) Left facial numbness (Resolved) Migraine (Resolved) Paresthesias in left hand (Resolved) Subtherapeutic international normalized ratio (INR) (Resolved) Supratherapeutic INR (Resolved) The patient is a 79 year old F with PMH of HTN, HLD, CAD, DM type II, A-fib with RVR, pacemaker, RUDY, anxiety and depression admitted to [facility] on 06/06/2019 with debility secondary to right MCA with right M1 occlusion s/p post thrombectomy, for > 3 hours of therapy daily with a goal of returning home at or near her prior level of independence. She presented to [facility] ER on 05/23/2019 due to patient was found laying on the ground in her garage with left-sided deficits. NIH was 20. CT of brain suggestive of thrombus in the right MCA and an early infarct in the right MCA territory. CTA head and neck with contrast impression right MCA occlusion. No TPA and patient was transferred to [facility]. On 05/23/19, neurosurgeon Dr. Doll formed the right MCA thrombectomy, due to right [place] occlusion. Postprocedural right ICA arteriogram demonstrated TICI?2b revascularization. CT of head without contrast on 06/04/2019 right MCA territory infarct with decrease edema noted in resolution of previ ously noted mass-effect of the right lateral ventricle and resolution of previously noted midline shift. Scattered hemorrhage within the infarct is less well. No new hemorrhage is identified.. Unable to obtain MRI due to pacemaker. TTE done which showed ejection fraction 65 to 70% and RVSP 41-45 mmHg. LDL 116, HgbA1c 6.5%. Prior to hospitalization patient was on Xarelto 15 mg daily for A. fib, was discontinued by [facility]. Plan - PT for gait stability - OT for ADLs - ST - PEG placement 06/13/19 - Right MCA infarct post thrombectomy on statin, asa, antihypertensives. Repeat CT head 06/10/2019 shows stable right MCA stroke with no new hemorrhage. Eliquis 5 mg p.o. twice daily to be started from 06/14/2019 post PEG placement, stroke initially occurred on 05/23/2019. Will stop aspirin once Eliquis is started, as per patient she was not on aspirin at home at baseline. - HTN on Losartan, HCTZ and Coreg. Goal blood pressure less than 130/80, avoid hypotension - A-fib- on flecainide xeralto discontinued by [facility]. Will start Eliquis 5 mg p.o. twice daily from 06/14/2019 as PEG placed on 06/13/19, stroke initially occurred on 05/23/2019. - DM type II on humalog S.C., accuchecks ac/hs, HgbA1c 6.5% - CAD on asa - HLD on lipitor LDL 116 - RUDY stable 06/07/19 H/H 33.8/10.9 - Anxiety/depression on cymbalta - Insomnia/visual hallucinations-hold Seroquel as patient is drowsy in the morni ng - Dysphagia on pureed, honey thickened liquids- ST to follow - Hypokalemia K+ 3.3 on 06/10/19. Repeat K - GI/DVT prophylaxis pepcid/lovenox, knee high nataly hose - Further medical management per hospitalist-consult - Analgesics as needed - Bowel protocol - F/U neurosurgeon Dr. Harrison, PCP, neurology, cardiology
[2019-06-13 15:02] LABS: Potassium 3.2 mmol/L (3.5-5.1)
[2019-06-13] MEDS: Aspirin 81 MG TAB.CHEW PO (15:27)
[2019-06-13] MEDS: Acetaminophen 500 MG Tablet 1000 MG PO (15:27)
--- NOTE | 2019-06-13 16:00 | NURSING ---
Patient pleasant and resting comfortably, denies pain. Daughter at bedside. No drainage from peg dressing site. Dr. Khan reported he does not want patient on Lovenox at this time, scd's ordered for dvt prophylaxis and Dr. Marquez given information per his request.
--- NOTE | 2019-06-13 20:10 | NURSING ---
PEG SITE IS WITHOUT DNG FROM SITE AND DSG IS IN PLACE AND DRY AND INTACT. PT DENIES PAIN.
[2019-06-13] MEDS: Latanoprost 0.005% 1 Bottle 1 DRP EACH EYE (22:33)
[2019-06-13] MEDS: Acetaminophen 650 MG/20 ML UDC 1000 MG GT (22:34)
[2019-06-13] MEDS: Flecainide 100 MG Tablet GT (22:37)
[2019-06-13] MEDS: Atorvastatin Calcium 40 MG Tablet GT (22:37)
[2019-06-13] MEDS: Carvedilol 12.5 MG Tablet GT (22:37)
--- NOTE | 2019-06-14 00:10 | NURSING ---
PEG TUBE INSERTION SITE IS WITHOUT DRAINAGE AND DSG IS DRY AND INTACT.
[2019-06-14 01:00] VITALS: BP 150/78; PULSE 62
--- NOTE | 2019-06-14 01:34 | NURSING ---
PEG TUBE INSERTION SITE IS WITHOUT DRAINAGE, AND DSG IS DRY AND INTACT.
[2019-06-14 05:00] VITALS: BMI 23.8
[2019-06-14 05:23] VITALS: BP 151/75; PULSE 61
[2019-06-14] MEDS: Acetaminophen 650 MG/20 ML UDC 1000 MG GT ×3 (05:29→20:14)
[2019-06-14] MEDS: Carvedilol 12.5 MG Tablet GT ×3 (05:32→20:17)
[2019-06-14 07:00] VITALS: RESP 18; TEMP 36.7; O2SAT 97
--- NOTE | 2019-06-14 09:58 | PN_ITS ---
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 So far tolerated tube feeding. Objective: GENERAL: cooperative HEENT: Atraumatic; EYES; Anicteric, Normal Conjunctiva NECK; supple, normal thyroid, RESPIRATORY: Diminished to auscultation CARDIOVASCULAR: Irregular S1 S2, GI: soft, non-tender, normoactive bowel sounds, : No Renal angle tenderness; EXTREMITIES: No edema, no clubbing, NEURO: Awake; left sided weakness SKIN: No Rash PSYCH;flat affect Vitals/I&O's: Vital Signs Temp Pulse Resp BP Pulse Ox 98.0 F 61 18 151/75 H 97 06/14/19 07:00 06/14/19 05:23 06/14/19 07:00 06/14/19 05:23 06/14/19 07:00 Oxygen Delivery Method Room Air Weight: 62.7 kg Body Mass Index (BMI) 23.8 Finger Stick Blood Glucose 143 Intake and Output for Last 24 Hours 06/12/19 06/13/19 06/14/19 23:59 23:59 23:59 Intake Total 1202.5 / 1202.5 1040.83 / 1040.83 Balance 1202.5 / 1202.5 1040.83 / 1040.83 Laboratory Results 06/13/19 12:23: Potassium 3.2 L Current Medications Acetaminophen (Tylenol Liquid) 1,000 mg GT TID [facility] Last Admin: 06/14/19 05:29 Dose: 1,000 mg Documented by: Apixaban (Eliquis) 5 mg GT BID [facility] Atorvastatin Calcium (Lipitor) 40 mg GT QHS [facility] Last Admin: 06/13/19 22:37 Dose: 40 mg Documented by: Bisacodyl (Dulcolax) 10 mg RECTAL .PRN X 1 PRN PRN Reason: Constipation Carvedilol (Coreg) 12.5 mg GT Q8 [facility] Last Admin: 06/14/19 05:32 Dose: 12.5 mg Documented by: Duloxetine HCl (Cymbalta) 60 mg PO DAILY [facility] Last Admin: 06/13/19 07:44 Dose: Not Given Documented by: Enteral Nutritional Formula (Jevity 1.5) 200 ml GT 6X/DAY [facility] Famotidine (Pepcid) 20 mg GT DAILY [facility] Flecainide Acetate (Tambocor) 100 mg GT BID [facility] Last Admin: 06/13/19 22:37 Dose: 100 mg Documented by: Hydrochlorothiazide (Hctz) 25 mg GT DAILY [facility] Sodium Chloride () 1,000 mls @ 50 mls/hr IV .Q20H [facility] Last Admin: 06/13/19 13:52 Dose: 50 mls/hr Documented by: Sodium Chloride () 1,000 mls @ 50 mls/hr IV .Q20H [facility] Last Admin: 06/13/19 10:43 Dose: 50 mls/hr Documented by: Latanoprost (Xalatan Opthalmic) 1 drop EACH EYE DAILY@2200 [facility] Last Admin: 06/13/19 22:33 Dose: 1 drop Documented by: Losartan Potassium (Cozaar) 100 mg GT DAILY [facility] Magnesium Hydroxide (Milk Of Magnesia) 30 ml PO .PRN X 1 PRN PRN Reason: Constipation Polyethylene Glycol (Miralax) 17 gm GT DAILY [facility] Potassium Chloride (Potassium Chl Soln) 20 meq PO DAILY [facility] Sodium Chloride () 5 - 15 ml IV UD PRN PRN Reason: SALINE FLUSH Medical Necessity - Tobacco Use Smoking Status: Never smoker Tobacco Use: Non-smoker Assessment/Plan All Active Problems (Last Updated 06/12/19 @ 14:09 by Kathi Shields) CVA (cerebral vascular accident) (Acute 05/2019) Acute CVA (cerebrovascular accident) (Resolved) Atrial fibrillation with RVR (Resolved) Dehydration (Resolved) Fecal occult blood test positive (Resolved) Heme + stool (Resolved) Hypokalemia (Resolved) Iron deficiency anemia due to chronic blood loss (Resolved) Junctional bradycardia (Resolved) Left facial numbness (Resolved) Migraine (Resolved) Paresthesias in left hand (Resolved) Subtherapeutic international normalized ratio (INR) (Resolved) Supratherapeutic INR (Resolved) Patient is a 79-year-old lady admitted to the inpatient rehab unit with significant debility secondary to acute right MCA stroke with residual left- sided paralysis 1. Acute right MCA ischemic stroke with residual left-sided paralysis. Patient underwent right ICA thrombectomy subsequently transferred to the rehab unit at the [facility] ~06/12/2019: Patient scheduled to undergo PEG tube placement after failing speech and swallow eval ?06/14/2019 patient underwent PEG tube placement the day prior subsequently started on tube feeding 2. Hypertension ~ blood pressure controlled, home medications continued with dose adjustment as needed 3. Paroxysmal atrial fibrillation Patient is on flecainide was on Xarelto which is currently being held. Her post thrombectomy. Was apparently complicated by acute cytotoxic cerebral edema with brain compression 4. Hypokalemia corrected per protocol 5. Diabetes mellitus type II ~Diet controlled, placed on Accu-Cheks a.c. and at bedtime and covered with sliding scale insulin 6. Depression with anxiety patient is on Seroquel as well as Ativan as needed 7. DVT prophylaxis SC Lovenox Code Visit Inpatient E&M: 89559 Subs Hosp L2
[2019-06-14] MEDS: Famotidine 20 MG Tablet GT (10:01)
[2019-06-14] MEDS: DULoxetine Hcl 60 MG Capsule PO (10:02)
[2019-06-14] MEDS: Jevity 1.5. 1,000 ML Bottle 200 ML GT ×4 (10:02→17:18)
[2019-06-14] MEDS: Flecainide 100 MG Tablet GT ×2 (10:02→20:17)
[2019-06-14] MEDS: hydroCHLOROthiazide 25 MG Tablet GT (10:04)
[2019-06-14] MEDS: APIXABAN 5 MG TABLET GT ×2 (10:05→20:17)
--- NOTE | 2019-06-14 11:12 | PN.NEURO_ITS ---
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 Care discussed with the nursing staff. Status post PEG yesterday, no PEG site bleeding or hematoma. Per surgery recommendations can start Eliquis today post PEG. Will stop aspirin - Physical Exam General: Alert HEENT: Normocephalic Neck: Supple Lungs: Normal air movement Cardiovascular: Normal S1, Normal S2 Abdomen: Bowel Sounds Present Extremities: No cyanosis Neurological: - - Conscious, awake, CN II to XII?left seventh UMN facial palsy, left-sided neglect, power 5 x 5 right upper and lower extremity, 0 x 5 power left upper extremity, 2 x 5 left lower extremity, denies any sensory loss, no cerebellar signs, left hemineglect and extension present, dysarthria present, gait deferred, reflexes + B/L B/S/T/K/A Psych/Mental Status: Normal Affect Vital Signs Temp Pulse Resp BP Pulse Ox 98.0 F 61 18 151/75 H 97 06/14/19 07:00 06/14/19 05:23 06/14/19 07:00 06/14/19 05:23 06/14/19 07:00 Oxygen Delivery Method Room Air Weight: 62.7 kg Body Mass Index (BMI) 23.8 Finger Stick Blood Glucose 143 Intake and Output for Last 24 Hours 06/12/19 06/13/19 06/14/19 23:59 23:59 23:59 Intake Total 1202.5 / 1202.5 1040.83 / 1040.83 Balance 1202.5 / 1202.5 1040.83 / 1040.83 Laboratory Tests Past 24 Hrs 06/13/19 12:23 Potassium 3.2 L Medical Necessity - Tobacco Use Smoking Status: Never smoker Tobacco Use: Non-smoker Assessment/Plan All Active Problems (Last Updated 06/12/19 @ 14:09 by Kathi Shields) CVA (cerebral vascular accident) (Acute 05/2019) Acute CVA (cerebrovascular accident) (Resolved) Atrial fibrillation with RVR (Resolved) Dehydration (Resolved) Fecal occult blood test positive (Resolved) Heme + stool (Resolved) Hypokalemia (Resolved) Iron deficiency anemia due to chronic blood loss (Resolved) Junctional bradycardia (Resolved) Left facial numbness (Resolved) Migraine (Resolved) Paresthesias in left hand (Resolved) Subtherapeutic international normalized ratio (INR) (Resolved) Supratherapeutic INR (Resolved) The patient is a 79 year old F with PMH of HTN, HLD, CAD, DM type II, A-fib with RVR, pacemaker, RUDY, anxiety and depression admitted to [facility] I[facility] on 06/06/2019 with debility secondary to right MCA with right M1 occlusion s/p post thrombectomy, for > 3 hours of therapy daily with a goal of returning home at or near her prior level of independence. She presented to [facility] ER on 05/23/2019 due to patient was found laying on the ground in her garage with left-sided deficits. NIH was 20. CT of brain suggestive of thrombus in the right MCA and an early infarct in the right MCA territory. CTA head and neck with contrast impression right MCA occlusion. No TPA and patient was transferred to [facility]. On 05/23/19, neurosurgeon Dr. Doll formed the right MCA thrombectomy, due to right OK occlusion. Postprocedural right ICA arteriogram demonstrated TICI?2b revascularization. CT of head without contrast on 06/04/2019 right MCA territory infarct with decrease edema noted in resolution of p reviously noted mass-effect of the right lateral ventricle and resolution of previously noted midline shift. Scattered hemorrhage within the infarct is less well. No new hemorrhage is identified.. Unable to obtain MRI due to pacemaker. TTE done which showed ejection fraction 65 to 70% and RVSP 41-45 mmHg. LDL 116, HgbA1c 6.5%. Prior to hospitalization patient was on Xarelto 15 mg daily for A. fib, was discontinued by [facility]. Plan - PT for gait stability - OT for ADLs - ST - PEG placement 06/13/19 - Right MCA infarct post thrombectomy on statin, asa, antihypertensives. Repeat CT head 06/10/2019 shows stable right MCA stroke with no new hemorrhage. Eliquis 5 mg p.o. twice daily to be started from 06/14/2019 post PEG placement, stroke initially occurred on 05/23/2019. Will stop aspirin once Eliquis is started, as per patient she was not on aspirin at home at baseline. - HTN on Losartan, HCTZ and Coreg. Goal blood pressure less than 130/80, avoid hypotension - A-fib- on flecainide xeralto discontinued by [facility]. Will start Eliquis 5 mg p.o. twice daily from 06/14/2019 as PEG placed on 06/13/19, stroke initially occurred on 05/23/2019. - DM type II on humalog S.C., accuchecks ac/hs, HgbA1c 6.5% - CAD on asa - HLD on lipitor LDL 116 - RUDY stable 06/07/19 H/H 33.8/10.9 - Anxiety/depression on cymbalta - Insomnia/visual hallucinations-hold Seroquel as patient is drowsy in the m orning - Dysphagia on pureed, honey thickened liquids- ST to follow - Hypokalemia K+ 3.2 on 06/13/19. K replaced. Repeat K level - GI/DVT prophylaxis pepcid/lovenox, knee high nataly hose - Further medical management per hospitalist-consult - Analgesics as needed - Bowel protocol - F/U neurosurgeon Dr. Harrison, PCP, neurology, cardiology
[2019-06-14 11:40] LABS: Potassium 3.7 mmol/L (3.5-5.1)
[2019-06-14] MEDS: Losartan Potassium 100 MG Tablet GT (11:51)
[2019-06-14 13:00] VITALS: BP 142/80; PULSE 78
[2019-06-14 13:43] VITALS: BMI 23.8
[2019-06-14] MEDS: Atorvastatin Calcium 40 MG Tablet GT (20:17)
[2019-06-14] MEDS: Latanoprost 0.005% 1 Bottle 1 DRP EACH EYE (20:26)
[2019-06-14] MEDS: 0.9% NaCl Peripheral Flush Adult/Peds IV (20:44)
[2019-06-14 20:54] VITALS: BP 189/96; PULSE 66; RESP 18; TEMP 37.8; O2SAT 95
[2019-06-14 22:00] VITALS: BP 139/73; PULSE 65; RESP 18; TEMP 38.4; O2SAT 91
--- NOTE | 2019-06-14 23:22 | NURSING ---
Temp earlier in shift 100.1 189/96 Tylenol given, temp now 101.2 orally. Lungs clear. Sats were 95% earlier, now 91%-92%. O2 applied at 2L with resulting sats of 94%. Confused to place and time. (thinks she is at [facility], and state's it's July). Denies burning while voiding. Dr. Josue notified.
--- NOTE | 2019-06-14 23:45 | RAD_ITS ---
STUDY: X-RAY CHEST REASON FOR EXAM: Female, 79 years old. Short of breath TECHNIQUE: AP and lateral chest COMPARISON: 05/23/2019 FINDINGS: There are new mild left lower lobe linear pulmonary opacities. There is mild cardiomegaly. Normal mediastinum and rocael. Normal visualized pulmonary arteries. Normal visualized aortic arch and descending thoracic aorta. There is a cardiac pacemaker. Normal visualized thoracic spine. Normal visualized ribs, clavicles, and shoulders. There is no demonstrated abnormality of the visualized soft tissue structures of the upper abdomen. There are minimal hypodensities within the splenic flexure of the colon. RAD/Chest PA and Lateral IMPRESSION: Mild new linear left lower lobe pulmonary opacities, mild infiltrates and subsegmental atelectasis possible aspiration Mild cardiomegaly unchanged Cardiac pacemaker Minimal contrast in colon from prior swallowing study Electronically Signed: Rogelio Finley, at 0:24 EDT Tel , Service support ,
[2019-06-15 00:07] VITALS: BMI 23.8
--- NOTE | 2019-06-15 00:12 | NURSING ---
Chest xray done in radiology; lab here for blood cultures. MRSA culture to be obtained once speciman tubes arrive; IV in place for IV antibiotic zosyn;
--- NOTE | 2019-06-15 00:39 | RAD_ITS ---
HISTORY: C/O UPPER ABD/ EPIGASTRIC PAIN ADDITIONAL HISTORY: None. COMPARISON: 01/05/2015 Technique: Supine and upright abdominal radiographs. Number of images including paperwork: 3 FINDINGS: FREE AIR: None detected. BOWEL GAS PATTERN: Nonobstructive. CALCIFICATIONS: No definite urinary tract calculi. ORGANS: No evidence of organomegaly. SOFT TISSUES: Unremarkable. BONES: No acute skeletal findings. Degenerative changes. Gastrostomy tube projects over the left upper quadrant. Pacemaker with left-sided generator. RAD/Abd Inc Decub and/or Erect IMPRESSION: No acute abdominal abnormality is radiographically apparent. at 0201 Reported and signed by: Mandie Taylor MD Electronically Signed: Mandie Taylor MD at 2:01 EDT Tel , Service support ,
--- NOTE | 2019-06-15 00:41 | CCHN_ITS ---
Hospitalist Note Nurse called me that patient is having high fever. Patient had 2 times fever 100.1, 101.2 at about 9 and 10 PM respectively. No associated tachycardia. Blood pressure maintained. No hypoxia. Patient had PEG tube placed on 06/13/2019 and tube feed was started in the morning but this stopped secondary to high decidual. Patient complain of sinus pain. Patient does not have abdominal pain but on palpation's tenderness in the epigastrium and around the PEG tube site. No associated redness or signs of inflammation near the PEG tube. On exam Air entry bilateral equal. No crepitation/rhonchi. Mild tenderness over left maxillary sinus. Heart S1-S2 regular no murmur gallop or rub. Abdomen mild tenderness over epigastrium and left hypochondrium. Bowel sounds present. Overall abdomen is soft. Extremities: Left-sided weakness secondary to stroke. Facial droop. Neuro: Stroke with left-sided weakness and stroke. Skin: No rash Assessment and plan Fever, exact site of origin unclear but possible URI/sinusitis possible viral URI: Sepsis screen labs ordered. Blood cultures x2, UA, urine culture, chest x- ray PA and lateral, respiratory panel ordered. Started empirically on IV Zosyn. Chest x-ray reported as mild new linear left lower lobe pulmonary opacity, mild infiltrates and subsegmental atelectasis possible aspiration. In view of oropharyngeal dysphagia secondary to stroke and PEG tube feeding but that was just started on 06/14 and was soon stopped in the evening and chest x- ray finding of lower lobes infiltrate, it is more suggestive of aspiration pneumonia MRSA nasal screen negative. Continue IV Zosyn. Blood work reviewed. Leukocytosis, 11.6 thousand. Hypokalemia K3.1. UA is negative of pyuria, nitrite negative and LE negative. Patient does not have lower urinary tract symptoms of dysuria. Clinical Impression(s) from Imaging Studies Brain CT 06/10/19 09:59 IMPRESSION: Further evolution of the subacute right middle cerebral artery infarct. No acute hemorrhage. Electronically Signed: Joel Michael MD at 10:30 EDT Tel , Service support , Chest X-Ray 06/14/19 23:45 IMPRESSION: Mild new linear left lower lobe pulmonary opacities, mild infiltrates and subsegmental atelectasis possible aspiration Mild cardiomegaly unchanged Cardiac pacemaker Minimal contrast in colon from prior swallowing study Laboratory Results 06/14/19 11:26: Potassium 3.7 06/15/19 00:20: Lactic Acid 1.8 06/15/19 00:30: PT 16.6 H, INR 1.4, APTT 28.9 06/15/19 00:40: WBC 11.6 H, RBC 3.39 L, Hgb 10.3 L, Hct 31.7 L, MCV 93.5, MCH 30.4, MCHC 32.5, RDW Std Deviation 43.9, RDW Coeff of Keyur 12.8, Plt Count 284, MPV 10.6 06/15/19 00:40: Sodium 137, Potassium 3.1 L, Chloride 104, Carbon Dioxide 27.0, Anion Gap 6, BUN 15, Creatinine 0.94, Estim Creat Clear Calc 47.97, Est GFR (MDRD) Af Amer 74, Est GFR (MDRD) Non-Af 61, BUN/Creatinine Ratio 15.9, Glucose 180 H, Calcium 9.1, Total Bilirubin 0.30, AST 19, ALT 14, Alkaline Phosphatase 92, Total Protein 6.2 L, Albumin 2.7 L, Globulin 3.5, Albumin/Globulin Ratio 0.8 L 06/15/19 01:00: Urine Color Yellow, Urine Clarity Clear, Urine pH 5.0, Ur Specific [place]to 1.015, Urine Protein Negative, Urine Glucose (UA) 250 H, Urine Ketones Negative, Urine Occult Blood Negative, Urine Nitrite Negative, Urine Bilirubin Negative, Urine Urobilinogen Normal, Ur Leukocyte Esterase Negative, Urine RBC 0 SEEN, Urine WBC 0-5 SEEN, Ur Squamous Epith Cells 0 SEEN, Uric Acid Crystals 1+, Urine Bacteria 0 SEEN, Hyaline Casts 0-5 SEEN, Urine Mucus RARE 06/15/19 01:00: MRSA (PCR) Negative Code Visit Inpatient E&M: 38422 Subs Hosp L2
[2019-06-15 00:43] LABS: Hematocrit 31.7 % (37-47); Hemoglobin 10.3 g/dL (12.0-15.0); Mean Corp Hgb Conc 32.5 g/dL (32-36); Mean Corpuscular Hgb 30.4 pg (27.0-32.0); Mean Corpuscular Volume 93.5 fL (81-99); Mean Platelet Vol. 10.6 fl (6.2-12.0); Platelet Count 284 K/mm3 (150-450); RBC Distribution Width CV 12.8 % (11.6-14.6); RBC Distribution Width SD 43.9 fl (35.1-43.9); Red Blood Count 3.39 M/mm3 (4.2-5.4); White Blood Count 11.6 K/mm3 (4.4-11.0)
[2019-06-15 00:47] LABS: International Normalized Ratio 1.4; Prothrombin Time (Protime)PT. 16.6 SECONDS (11.7-14.9)
[2019-06-15 00:48] LABS: Partial Thromboplast Time 28.9 Seconds (24.1-36.2)
--- NOTE | 2019-06-15 00:54 | NURSING ---
Blood cultures, cbc, lactic acid, ptt and other labs drawn. MRSA and urine for ua c&s obtained per straight cath. Radiology here now for abdominal series
[2019-06-15 01:02] LABS: Lactic Acid 1.8 mmol/L (0.4-2.0)
[2019-06-15 01:16] LABS: Bacteria 0 SEEN /hpf (None Seen); Red Blood Cells-Urine 0 SEEN /hpf (0-5); Squamous Epithelial Cells - UA 0 SEEN /hpf (5-10)
[2019-06-15 01:20] LABS: ALB/GLOB Ratio 0.8 RATIO (0.9-2.4); AST(SGOT) 19 U/L (15-37); Alanine Aminotransfer ALT/SGPT 14 U/L (13-56); Albumin, Serum 2.7 g/dL (3.2-5.0); Alkaline Phosphatase 92 U/L (45-117); Anion Gap 6 (5-15); BUN 15 mg/dL (7-18); BUN/Creat Ratio 15.9 RATIO (10-20); Calcium,Total 9.1 mg/dL (8.5-10.1); Chloride 104 mmol/L (98-107); Creatinine, Serum 0.94 mg/dL (0.55-1.02); EST Glomerular Filtration Rate 61 mL/min (>60); Est Glom Filt Rate - Afr Amer 74 mL/min (>60); Estimated Creatinine Clearance 47.97 ml/min; Globulin 3.5 g/dL (2.2-4.2); Glucose 180 mg/dL (74-106); Potassium 3.1 mmol/L (3.5-5.1); Protein, Total 6.2 g/dL (6.4-8.2); Sodium Level 137 mmol/L (136-145)
[2019-06-15 01:23] LABS: Color, Urine Yellow (Yellow); Glucose, Dipstick 250 mg/dl (Normal); Ketone-Dipstick Negative (Negative); Leukocyte Esterase-Dipstick Negative /ul (Negative); Nitrite-Dipstick Negative (Negative); Occult Blood-Urine Negative /ul (Negative); Protein-Dipstick Negative (Negative); Specific Gravity, Urine 1.015 (1.002-1.030); Urine Bilirubin Dipstick Negative (Negative); Urine Clarity Clear (Clear); Urine Urobilinogen Normal (Normal)
[2019-06-15 01:55] LABS: Uric Acid Crystals Ur 1+ /hpf (<or=1+)
[2019-06-15 01:56] LABS: Hyaline Cast 0-5 SEEN /lpf (0-5); Mucous, Urine RARE /hpf (<or=2+)
[2019-06-15 01:59] LABS: White Blood Cells 0-5 SEEN /hpf (0-5)
[2019-06-15 02:40] LABS: M R Staph aureus DNA By PCR Negative (Negative); Probe Check PASS; Specimen Processing Control PASS
[2019-06-15] MEDS: Acetaminophen 650 MG/20 ML UDC 1000 MG GT ×3 (04:30→22:11)
[2019-06-15] MEDS: Jevity 1.5. 1,000 ML Bottle 200 ML GT ×4 (04:31→22:13)
[2019-06-15] MEDS: Carvedilol 12.5 MG Tablet GT ×3 (04:31→22:13)
[2019-06-15 07:33] LABS: Magnesium 1.6 mg/dL (1.6-2.6)
[2019-06-15 08:40] VITALS: BP 124/64; PULSE 60; RESP 18; TEMP 36.9; O2SAT 94
[2019-06-15 09:45] VITALS: BP 143/72; PULSE 68
[2019-06-15] MEDS: APIXABAN 5 MG TABLET GT ×2 (10:15→22:13)
[2019-06-15] MEDS: Flecainide 100 MG Tablet GT ×2 (10:15→22:12)
[2019-06-15] MEDS: Famotidine 20 MG Tablet GT (10:15)
[2019-06-15] MEDS: hydroCHLOROthiazide 25 MG Tablet GT (10:15)
[2019-06-15] MEDS: DULoxetine Hcl 60 MG Capsule PO (10:15)
[2019-06-15] MEDS: Losartan Potassium 100 MG Tablet GT (10:17)
[2019-06-15 11:12] VITALS: BMI 23.8
[2019-06-15] MEDS: 0.9% NaCl Peripheral Flush Adult/Peds IV ×3 (11:16→18:18)
--- NOTE | 2019-06-15 11:50 | NS ---
Rehab nurse called this RD re: pt bolus TF feedings--reports that pt gets diarrhea about 10 minutes after bolus & this started yesterday. I do not suggest a product change at this time. Rec continue Jevity 1.5 Vladimir but, trial decreasing volume at next feeding to see if that is better tolerated by pt. May possibly benefit from nocturnal TF instead of bolus feedings if diarrhea continues after bolus feedings. Will monitor & follow-up with TF tolerance; make additional recs as indicated. Ernestina Ferguson, , RD, LD
--- NOTE | 2019-06-15 11:55 | NURSING ---
Spoke with Ernestina [employer] Repairer in regards to pt having liquid stool after receiving her tube feed bolus. She recommend decreasing tube feed to 150ml for next feeding to see if this helps, if so she may change tube feeds to nocturnal.
[2019-06-15 14:00] VITALS: BP 129/72; PULSE 63
--- NOTE | 2019-06-15 14:35 | NURSING ---
1200 and 1400 Peg Feed held due to high residual. Ernestina framer made aware.
[2019-06-15 19:32] VITALS: BP 127/69; PULSE 62; RESP 16; TEMP 36.4; O2SAT 96
[2019-06-15] MEDS: Latanoprost 0.005% 1 Bottle 1 DRP EACH EYE (22:10)
[2019-06-15] MEDS: Atorvastatin Calcium 40 MG Tablet GT (22:12)
[2019-06-15 23:21] VITALS: BMI 23.8
[2019-06-16 01:30] VITALS: BP 117/66; PULSE 62
[2019-06-16] MEDS: 0.9% NaCl Peripheral Flush Adult/Peds IV ×3 (02:13→18:11)
[2019-06-16] MEDS: Carvedilol 12.5 MG Tablet GT ×3 (05:10→21:54)
[2019-06-16] MEDS: Acetaminophen 650 MG/20 ML UDC 1000 MG GT ×3 (05:10→21:48)
[2019-06-16] MEDS: Jevity 1.5. 1,000 ML Bottle 200 ML GT ×5 (05:24→21:54)
[2019-06-16 06:27] LABS: Magnesium 1.7 mg/dL (1.6-2.6)
[2019-06-16 07:48] VITALS: BP 151/86; PULSE 62; RESP 18; TEMP 36.4; O2SAT 98
[2019-06-16] MEDS: APIXABAN 5 MG TABLET GT ×2 (08:12→21:54)
[2019-06-16] MEDS: Flecainide 100 MG Tablet GT ×2 (08:13→21:54)
[2019-06-16] MEDS: DULoxetine Hcl 60 MG Capsule PO (08:13)
[2019-06-16] MEDS: Famotidine 20 MG Tablet GT (08:13)
[2019-06-16] MEDS: Losartan Potassium 100 MG Tablet GT (08:13)
[2019-06-16] MEDS: hydroCHLOROthiazide 25 MG Tablet GT (08:13)
[2019-06-16 09:32] VITALS: BMI 23.8
--- NOTE | 2019-06-16 10:36 | PN_ITS ---
Subjective: CC follow-up acute CVA Patient was initiated on antibiotics for suspected aspiration pneumonia after developing fever. Also seen this a.m. has evidence of oral thrush subsequently started on Diflucan Objective: GENERAL: cooperative HEENT: Oral thrush EYES; Anicteric, Normal Conjunctiva NECK; supple, normal thyroid, RESPIRATORY: Diminished to auscultation CARDIOVASCULAR: Irregular S1 S2, GI: soft, non-tender, normoactive bowel sounds, : No Renal angle tenderness; EXTREMITIES: No edema, no clubbing, NEURO: Awake; left sided weakness SKIN: No Rash PSYCH;flat affect Vitals/I&O's: Vital Signs Temp Pulse Resp BP Pulse Ox 97.5 F L 62 18 151/86 H 98 06/16/19 07:48 06/16/19 07:48 06/16/19 07:48 06/16/19 07:48 06/16/19 07:48 Oxygen Delivery Method Room Air Weight: 62.7 kg Body Mass Index (BMI) 23.8 Finger Stick Blood Glucose 143 Intake and Output for Last 24 Hours 06/14/19 06/15/19 06/16/19 23:59 23:59 23:59 Intake Total 4250 / 4250 2124 / 2124 450 / 450 Balance 4250 / 4250 2124 / 2124 450 / 450 Microbiology Past 72 Hours 06/15/19 00:19 Mucosa - Nasopharyngeal Respiratory Panel (PCR) - Final Laboratory Results 06/16/19 05:56: Magnesium 1.7 Current Medications Acetaminophen (Tylenol Liquid) 1,000 mg GT TID [facility] Last Admin: 06/16/19 05:10 Dose: 1,000 mg Documented by: Apixaban (Eliquis) 5 mg GT BID [facility] Last Admin: 06/16/19 08:12 Dose: 5 mg Documented by: Atorvastatin Calcium (Lipitor) 40 mg GT QHS [facility] Last Admin: 06/15/19 22:12 Dose: 40 mg Documented by: Bisacodyl (Dulcolax) 10 mg RECTAL .PRN X 1 PRN PRN Reason: Constipation Carvedilol (Coreg) 12.5 mg GT Q8 [facility] Last Admin: 06/16/19 05:10 Dose: 12.5 mg Documented by: Duloxetine HCl (Cymbalta) 60 mg PO DAILY [facility] Last Admin: 06/16/19 08:13 Dose: 60 mg Documented by: Enteral Nutritional Formula (Jevity 1.5) 200 ml GT 6X/DAY [facility] Last Admin: 06/16/19 08:29 Dose: 200 ml Documented by: Famotidine (Pepcid) 20 mg GT DAILY [facility] Last Admin: 06/16/19 08:13 Dose: 20 mg Documented by: Flecainide Acetate (Tambocor) 100 mg GT BID [facility] Last Admin: 06/16/19 08:13 Dose: 100 mg Documented by: Hydrochlorothiazide (Hctz) 25 mg GT DAILY [facility] Last Admin: 06/16/19 08:13 Dose: 25 mg Documented by: Piperacillin Sod/Tazobactam (Sod 3.375 gm/ Sodium Chloride) 50 mls @ 12.5 mls/hr IV Q8 [facility] Last Infusion: 06/16/19 10:28 Dose: Infused Documented by: Latanoprost (Xalatan Opthalmic) 1 drop EACH EYE DAILY@2200 [facility] Last Admin: 06/15/19 22:10 Dose: 1 drop Documented by: Losartan Potassium (Cozaar) 100 mg GT DAILY [facility] Last Admin: 06/16/19 08:13 Dose: 100 mg Documented by: Magnesium Hydroxide (Milk Of Magnesia) 30 ml PO .PRN X 1 PRN PRN Reason: Constipation Polyethylene Glycol (Miralax) 17 gm GT DAILY [facility] Last Admin: 06/16/19 08:13 Dose: Not Given Documented by: Potassium Chloride (Potassium Chl Soln) 20 meq GT DAILY [facility] Last Admin: 06/16/19 08:12 Dose: 20 meq Documented by: Sodium Chloride () 5 - 15 ml IV UD PRN PRN Reason: SALINE FLUSH Last Admin: 06/16/19 02:13 Dose: 10 ml Documented by: Medical Necessity - Tobacco Use Smoking Status: Never smoker Tobacco Use: Non-smoker Assessment/Plan All Active Problems (Last Updated 06/12/19 @ 14:09 by Kathi Shields) CVA (cerebral vascular accident) (Acute 05/2019) Acute CVA (cerebrovascular accident) (Resolved) Atrial fibrillation with RVR (Resolved) Dehydration (Resolved) Fecal occult blood test positive (Resolved) Heme + stool (Resolved) Hypokalemia (Resolved) Iron deficiency anemia due to chronic blood loss (Resolved) Junctional bradycardia (Resolved) Left facial numbness (Resolved) Migraine (Resolved) Paresthesias in left hand (Resolved) Subtherapeutic international normalized ratio (INR) (Resolved) Supratherapeutic INR (Resolved) Patient is a 79-year-old lady admitted to the inpatient rehab unit with significant debility secondary to acute right MCA stroke with residual left- sided paralysis 1. Acute right MCA ischemic stroke with residual left-sided paralysis. Patient underwent right ICA thrombectomy subsequently transferred to the rehab unit at the [facility] ~06/12/2019: Patient scheduled to undergo PEG tube placement after failing speech and swallow eval ?06/14/2019 patient underwent PEG tube placement the day prior subsequently started on tube feeding 2. Did aspiration pneumonia Patient started on Zosyn, cultures sent 3. Oral candidiasis ~ Patient started on Diflucan 200 mg x 1 and subsequently 100 mg daily for total of 7 days 4. Hypertension ~ blood pressure controlled, home medications continued with dose adjustment as needed 5. Paroxysmal atrial fibrillation Patient is on flecainide was on Xarelto which is currently being held. Her post thrombectomy. Was apparently complicated by acute cytotoxic cerebral edema with brain compression 6. Hypokalemia corrected per protocol 7. Diabetes mellitus type II ~Diet controlled, placed on Accu-Cheks a.c. and at bedtime and covered with sliding scale insulin 8. Depression with anxiety patient is on Seroquel as well as Ativan as needed 9. DVT prophylaxis SC Lovenox Code Visit Inpatient E&M: 74706 Subs Hosp L2
[2019-06-16] MEDS: Fluconazole 100 MG Tablet 200 MG GT (11:50)
[2019-06-16 12:09] VITALS: BP 117/64; PULSE 62; RESP 16; TEMP 36.4; O2SAT 94
[2019-06-16 19:00] VITALS: BP 139/80; PULSE 62; RESP 16; TEMP 36.8; O2SAT 94
[2019-06-16] MEDS: Latanoprost 0.005% 1 Bottle 1 DRP EACH EYE (21:46)
[2019-06-16] MEDS: Atorvastatin Calcium 40 MG Tablet GT (21:54)
[2019-06-16 23:31] VITALS: BMI 23.8
[2019-06-17 01:00] VITALS: BP 132/74; PULSE 61
[2019-06-17] MEDS: Acetaminophen 650 MG/20 ML UDC 1000 MG GT ×3 (05:20→21:58)
[2019-06-17] MEDS: Carvedilol 12.5 MG Tablet GT ×3 (05:20→22:00)
[2019-06-17] MEDS: Jevity 1.5. 1,000 ML Bottle 200 ML GT ×5 (06:13→22:18)
[2019-06-17 07:00] VITALS: BP 160/80; PULSE 62; RESP 18; TEMP 36.6; O2SAT 95
--- NOTE | 2019-06-17 08:00 | NURSING ---
message sent to Dr Hough related to no stop date on zosyn.
[2019-06-17 09:00] VITALS: BP 115/71; PULSE 62
--- NOTE | 2019-06-17 09:03 | PCM.PN.NEU ---
Subjective: Team meeting today. Further details per OT/PT/ST notes. All questions answered. Patient restless at night, having visual hallucinations, patient to restart seroquel. Increase tiredness this am, fall a sleep during conversation. No acute distress. Diflucan d/c d/t interaction with seroquel and started on nystatin to paint on tongue for thrush. Jevity continues via peg, on sher water protocol. - Physical Exam General: No apparent distress, Lethargic, - - Oriented to self only, increase tiredness HEENT: Atraumatic, PERRLA Oral: - - thrush Neck: Supple, No JVD Lungs: Clear to auscultation, Diminished - lower lobes Cardiovascular: Regular rate, Regular Rhythm Abdomen: Bowel Sounds Present, Soft, Non Tender Skin: - - peg intact Neurological: Cranial nerves II-XII grossly intact - mild left facial droop, Slurred Speech, - - motor strength RUE/RLE 5/5, LUE 0/5, LLE 3/5 Psych/Mental Status: Flat Affect, - - Oriented to self, increased tiredness, cooperative Vital Signs Temp Pulse Resp BP Pulse Ox 97.8 F 62 18 115/71 95 06/17/19 07:00 06/17/19 09:00 06/17/19 07:00 06/17/19 09:00 06/17/19 07:00 Oxygen Delivery Method Room Air Weight: 62.7 kg Body Mass Index (BMI) 23.8 Finger Stick Blood Glucose 143 Intake and Output for Last 24 Hours 06/15/19 06/16/19 06/17/19 23:59 23:59 23:59 Intake Total 2474 / 2474 3650 / 3650 800 / 800 Output Total 700 / 700 Balance 2474 / 2474 2950 / 2950 800 / 800 Microbiology Past 72 Hours 06/15/19 01:00 Urine Culture - Preliminary Urine, Catheterized Culture exhibits no growth. 06/15/19 00:19 Respiratory Panel (PCR) - Final Mucosa - Nasopharyngeal Medical Necessity - Tobacco Use Smoking Status: Never smoker Tobacco Use: Non-smoker Assessment/Plan All Active Problems (Last Updated 06/12/19 @ 14:09 by Kathi Shields) CVA (cerebral vascular accident) (Acute 05/2019) Acute CVA (cerebrovascular accident) (Resolved) Atrial fibrillation with RVR (Resolved) Dehydration (Resolved) Fecal occult blood test positive (Resolved) Heme + stool (Resolved) Hypokalemia (Resolved) Iron deficiency anemia due to chronic blood loss (Resolved) Junctional bradycardia (Resolved) Left facial numbness (Resolved) Migraine (Resolved) Paresthesias in left hand (Resolved) Subtherapeutic international normalized ratio (INR) (Resolved) Supratherapeutic INR (Resolved) The patient is a 79 year old F with PMH of pulmonary HTN, HLD, CAD, DM type II, A-fib with RVR, pacemaker, RUDY, anxiety and depression admitted to [facility] on 06/06/2019 for debility secondary to right MCA post thrombectomy, for 3 hours of therapy daily with a goal of returning home at or near her prior level of independence. She presented to [facility] ER on 05/23/2019 due to patient was found laying on the ground in her garage with left-sided deficits. Pressure was 161/90 with heart rate of 60. NIH was 20. CT of brain suggestive of thrombus in the right MCA and an early infarct in the right MCA territory. CTA head and neck with contrast impression right MCA occlusion. No TPA and patient was transferred to [facility]. On 05/23/19, neurosurgeon Dr. Doll formed the right MCA thrombectomy, due to right [place] occlusion. Postprocedural right ICA arteriogram demonstrated TICI?2b revascularization. CT of head without contrast on 06/04/2019 right MCA territory infarct with decrease edema noted in resolution of previously noted mass-effect of the right lateral ventricle and resolution of previously noted midline shift. Scattered hemorrhage within the infarct is less well seen in particular the right basal ganglia hemorrhage is less tense. No new hemorrhage is identified.. Unable to obtain MRI due to pacemaker. TTE done which showed ejection fraction 65 to 70% and RVSP 41-45 mmHg. LDL 116, HgbA1c 6.5%. Prior to hospitalization patient was on Xarelto 15 mg daily for A. fib, currently has been stopped. Patient lives with niece in a two-story house with first-floor set up, 2 steps to enter. Patient was independent with all ADLs, mobility, and driving prior to hospitalization. Plan - PT for mobility - OT for ADLs - ST for evaluation - Right MCA infarct post thrombectomy on statin, asa, antihypertensives - Pulmonary HTN on valsartan and coreg hold if SBP <130 - A-fib with RVR on flecainide xeralto discontinued - DM type II on humalog S.C., accuchecks ac/hs, HgbA1c 6.5% - CAD on asa - HLD on lipitor LDL 116 - RUDY stable 06/07/19 H/H 33.8/10.9 - Anxiety/depression on cymbalta - Insomnia/visual hallucinations restarted seroquel - Dysphagia failed MBS on 06/13/19 peg placement- on jevity and sterile water flushes, sher water protocol - Hypokalemia on potassium 1013 K+ 3.1 recheck K+ level - Aspiration pneumonia on zosyn - Thrush on nystatin paint on tongue - GI/DVT prophylaxis pepcid/lovenox, knee high nataly hose - Medical management per hospitalist-consult - Analgesics as needed - Bowel protocol - F/U neurosurgeon Dr. Harrison, PCP, neurology, cardiology
[2019-06-17] MEDS: hydroCHLOROthiazide 25 MG Tablet GT (09:06)
[2019-06-17] MEDS: Flecainide 100 MG Tablet GT ×2 (09:06→21:59)
[2019-06-17] MEDS: Famotidine 20 MG Tablet GT (09:06)
[2019-06-17] MEDS: DULoxetine Hcl 60 MG Capsule PO (09:06)
[2019-06-17] MEDS: Losartan Potassium 100 MG Tablet GT (09:07)
[2019-06-17] MEDS: APIXABAN 5 MG TABLET GT ×2 (09:07→21:59)
[2019-06-17 09:45] LABS: Potassium 3.4 mmol/L (3.5-5.1)
[2019-06-17] MEDS: 0.9% NaCl Peripheral Flush Adult/Peds IV ×3 (10:13→22:00)
--- NOTE | 2019-06-17 12:28 | CASEMGMT ---
Social Work IDT met with patient, son and daughter for Team Meeting. Patient more alert and oriented, but soon became drowsy. Patient is restless during the night and having trouble sleeping. Physician adjusted medication to assist with sleepiness. Patient did have peg tube placed to assist with nutrition, risk of aspiration and more energy/alertness to participate in therapy. Patient is walking 30 ft with breaks using max assist. Pt is very weak overall and unsure where to place her feet when walking. Working to retrain those muscles. Patient is max x1 for showering, LE total assist, toileting total x2 assist. ST working on swallow function as it is inconsistent, along wither patient's response to aspiration. As pt becomes more alert, ST can continue to work on cognitive function. Pt will be AOx3 in one conversation, and immediately switch to a delusion AOx1. Insurance update 06/18. Will continue to follow as referrals have been made to [facility]. Shannan Mcclellan, NBA LOVEW
[2019-06-17] MEDS: NYSTATIN 500,000 UNIT/5 ML UDC 500000 UNIT PO ×3 (14:06→21:59)
[2019-06-17 14:32] VITALS: BP 151/76; PULSE 62; RESP 18; O2SAT 98
[2019-06-17 14:33] VITALS: BMI 23.8
--- NOTE | 2019-06-17 19:14 | NURSING ---
repaged Dr Hough in regards to no stop date on zosyn
[2019-06-17 19:23] VITALS: BP 133/66; PULSE 61; RESP 16; TEMP 36.4; O2SAT 96
[2019-06-17] MEDS: Latanoprost 0.005% 1 Bottle 1 DRP EACH EYE (21:57)
[2019-06-17] MEDS: Atorvastatin Calcium 40 MG Tablet GT (21:59)
[2019-06-17] MEDS: QUEtiapine 25 MG Tablet GT (21:59)
[2019-06-17 22:00] VITALS: PULSE 61; RESP 16
[2019-06-17 23:50] VITALS: BMI 23.8
[2019-06-18] MEDS: Jevity 1.5. 1,000 ML Bottle 200 ML GT ×3 (02:10→09:08)
[2019-06-18 02:30] VITALS: BP 129/64; PULSE 61
[2019-06-18] MEDS: Acetaminophen 650 MG/20 ML UDC 1000 MG GT ×3 (06:41→21:24)
[2019-06-18] MEDS: Carvedilol 12.5 MG Tablet GT ×3 (06:42→21:23)
[2019-06-18 07:30] VITALS: BP 139/73; PULSE 62; RESP 16; TEMP 36.6; O2SAT 97
--- NOTE | 2019-06-18 07:30 | NURSING ---
Dr. Garcia aware of no stop date for Zosyn IV and he will address dc date when necessary.
[2019-06-18] MEDS: hydroCHLOROthiazide 25 MG Tablet GT (08:50)
[2019-06-18] MEDS: Losartan Potassium 100 MG Tablet GT (08:50)
[2019-06-18] MEDS: DULoxetine Hcl 60 MG Capsule PO (08:50)
[2019-06-18] MEDS: Flecainide 100 MG Tablet GT ×2 (08:50→21:24)
[2019-06-18] MEDS: Famotidine 20 MG Tablet GT (08:50)
[2019-06-18] MEDS: NYSTATIN 500,000 UNIT/5 ML UDC 500000 UNIT PO ×4 (08:51→21:23)
[2019-06-18] MEDS: APIXABAN 5 MG TABLET GT ×2 (08:51→21:23)
--- NOTE | 2019-06-18 10:53 | CASEMGMT ---
Addendum entered by Shannan Mcclellan 06/18/19 15:02: Son returned phone call and would like out of network cost from [facility] as well as another list of facilities in network with [facility]. Insurance did approve pt with [facility] 06/25. All information placed in patient's room for son. Original Note: Social Work Left message with son - [facility] is unable to accept pt as they do not have bed availability at this time. [facility] can accept pt but is out of network with [facility] and pt would need to be private pay. Insurance update is this day. Will await outcome and return call from son if more referrals need to be made. Shannan Mcclellan, NBA HERNANDEZ
--- NOTE | 2019-06-18 11:34 | CASEMGMT ---
Insurance: Continued stay review faxed to [facility] this day. auth #[id number]
--- NOTE | 2019-06-18 12:47 | PN.NEURO_ITS ---
Subjective: Per nursing, no restlessness or agitated at HS, patient slept well without visual hallucinations. Patient having diarrhea post jevity, discussed with disciplinary hearing officer and jevity decreased to 5 x/day, imodium prn and acidophilus. - Physical Exam General: Cooperative, No apparent distress, - - oriented to self, redirects easily HEENT: Atraumatic, PERRLA, EOMI, - - left hemianopia Oral: - - thrush Neck: Supple, No JVD Lungs: Clear to auscultation, No rhonchi, No wheeze, Diminished - bilateral lower lobes Cardiovascular: Regular rate, Regular Rhythm Abdomen: Bowel Sounds Present, Soft, Non Tender Extremities: No clubbing, No cyanosis, No edema Skin: - - peg intact Neurological: Cranial nerves II-XII grossly intact - except left heminaopia, Deep Tendon Reflexes 2+/4 and Symmetrical, Facial Droop - mild left, Slurred Speech - mild, - - Motor strength LUE 0/5, LLE 3/5, RUE/RLE 5/5, Psych/Mental Status: Appropriate, - - oriented to self, redirects easily, cooperative and pleasant Vital Signs Temp Pulse Resp BP Pulse Ox 97.8 F 62 16 139/73 H 97 06/18/19 07:30 06/18/19 07:30 06/18/19 07:30 06/18/19 07:30 06/18/19 07:30 Oxygen Delivery Method Room Air Weight: 62.7 kg Body Mass Index (BMI) 23.8 Finger Stick Blood Glucose 143 Intake and Output for Last 24 Hours 06/16/19 06/17/19 06/18/19 23:59 23:59 23:59 Intake Total 3650 / 3650 2300 / 2300 450 / 450 Output Total 700 / 700 Balance 2950 / 2950 2300 / 2300 450 / 450 Microbiology Past 72 Hours 06/15/19 00:30 Blood Culture - Preliminary Blood Culture (Wb) - Left Hand No growth in 48 hours. 06/15/19 00:20 Blood Culture - Preliminary Blood Culture (Wb) - Left Forearm No growth in 48 hours. 06/15/19 01:00 Urine Culture - Final Urine, Catheterized Culture exhibits no growth. 06/15/19 00:19 Respiratory Panel (PCR) - Final Mucosa - Nasopharyngeal Medical Necessity - Tobacco Use Smoking Status: Never smoker Tobacco Use: Non-smoker Assessment/Plan All Active Problems (Last Updated 06/12/19 @ 14:09 by Kathi Shields) CVA (cerebral vascular accident) (Acute 05/2019) Acute CVA (cerebrovascular accident) (Resolved) Atrial fibrillation with RVR (Resolved) Dehydration (Resolved) Fecal occult blood test positive (Resolved) Heme + stool (Resolved) Hypokalemia (Resolved) Iron deficiency anemia due to chronic blood loss (Resolved) Junctional bradycardia (Resolved) Left facial numbness (Resolved) Migraine (Resolved) Paresthesias in left hand (Resolved) Subtherapeutic international normalized ratio (INR) (Resolved) Supratherapeutic INR (Resolved) The patient is a 79 year old F with PMH of pulmonary HTN, HLD, CAD, DM type II, A-fib with RVR, pacemaker, RUDY, anxiety and depression admitted to [facility] on 06/06/2019 for debility secondary to right MCA post thrombectomy, for 3 hours of therapy daily with a goal of returning home at or near her prior level of independence. She presented to [facility] ER on 05/23/2019 due to patient was found laying on the ground in her garage with left-sided deficits . Pressure was 161/90 with heart rate of 60. NIH was 20. CT of brain suggestive of thrombus in the right MCA and an early infarct in the right MCA territory. CTA head and neck with contrast impression right MCA occlusion. No TPA and patient was transferred to [facility]. On 05/23/19, neurosurgeon Dr. Doll formed the right MCA thrombectomy, due to right [place] occlusion. Postprocedural right ICA arteriogram demonstrated TICI?2b revascularization. CT of head without contrast on 06/04/2019 right MCA territory infarct with decrease edema noted in resolution of previously noted mass-effect of the right lateral ventricle and resolution of previously noted midline shift. Scattered hemorrhage within the infarct is less well seen in particular the right basal ganglia hemorrhage is less tense. No new hemorrhage is identified.. Unable to obtain MRI due to pacemaker. TTE done which showed ejection fraction 65 to 70% and RVSP 41-45 mmHg. LDL 116, HgbA1c 6.5%. Prior to hospitalization patient was on Xarelto 15 mg daily for A. fib, currently has been stopped. Patient lives with niece in a two-story house with first-floor set up, 2 steps to enter. Patient was independent with all ADLs, mobility, and driving prior to hospitalization. Plan - PT for mobility - OT for ADLs - ST for evaluation - Right MCA infarct post thrombectomy on statin, asa, antihypertensives - Pulmonary HTN on valsartan and coreg hold if SBP <130 - A-fib with RVR on flecainide xeralto discontinued - DM type II on humalog S.C., accuchecks ac/hs, HgbA1c 6.5% - CAD on asa - HLD on lipitor LDL 116 - RUDY stable 06/07/19 H/H 33.8/10.9 - Anxiety/depression on cymbalta - Insomnia/visual hallucinations restarted seroquel - Dysphagia failed MBS on 06/13/19 peg placement- on jevity and sterile water flushes, sher water protocol, daily weight and I/O - Hypokalemia on potassium 06/17 K+ 3.4 - Diarrhea probably secondary to Jevity Imodium prn, acidophilus jevity adjusted decreased to 5 x/day - Aspiration pneumonia on zosyn - Thrush on nystatin paint on tongue - GI/DVT prophylaxis pepcid/lovenox, knee high nataly hose - Medical management per hospitalist-consult - Analgesics as needed - Bowel protocol - F/U neurosurgeon Dr. Harrison, PCP, neurology, cardiology
[2019-06-18 12:48] VITALS: BMI 23.8
[2019-06-18] MEDS: Menthol/Lanolin/Calamine/Znox 113 GM Tube 1 APPLIC TOPICAL ×2 (13:15→21:22)
--- NOTE | 2019-06-18 13:35 | NS ---
To stop 0200 feeding- recommend Jevity 1.5 via PEG- 240mL bolus 5x/day w/ 90mL H2O flush before and after each feeding to provide 1800 calories, 76 g protein, and 1812mL total fluid per day. Recommend daily weights. Gisel Linn MS, RDN, LD
[2019-06-18] MEDS: Loperamide 2 MG Capsule PO ×2 (14:16→18:09)
[2019-06-18] MEDS: Jevity 1.5. 1,000 ML Bottle 240 ML GT ×3 (14:17→21:23)
[2019-06-18 15:00] VITALS: BP 142/80; PULSE 67
[2019-06-18 19:26] VITALS: BP 149/77; PULSE 62; RESP 18; TEMP 36.3; O2SAT 98
[2019-06-18] MEDS: Atorvastatin Calcium 40 MG Tablet GT (21:23)
[2019-06-18] MEDS: QUEtiapine 25 MG Tablet GT (21:23)
[2019-06-18] MEDS: Latanoprost 0.005% 1 Bottle 1 DRP EACH EYE (21:25)
[2019-06-18 22:00] VITALS: PULSE 62; RESP 18; BMI 23.8
[2019-06-19 02:35] VITALS: BP 132/64; PULSE 63
[2019-06-19] MEDS: Carvedilol 12.5 MG Tablet GT ×3 (05:41→21:50)
[2019-06-19] MEDS: Jevity 1.5. 1,000 ML Bottle 240 ML GT ×5 (05:41→21:51)
[2019-06-19] MEDS: Acetaminophen 650 MG/20 ML UDC 1000 MG GT ×3 (05:42→21:52)
[2019-06-19] MEDS: 0.9% NaCl Peripheral Flush Adult/Peds IV (06:13)
[2019-06-19 07:33] VITALS: BP 165/89; PULSE 62; RESP 16; TEMP 36.4; O2SAT 93
[2019-06-19] MEDS: DULoxetine Hcl 60 MG Capsule PO (08:21)
[2019-06-19] MEDS: Famotidine 20 MG Tablet GT (08:21)
[2019-06-19] MEDS: Losartan Potassium 100 MG Tablet GT (08:21)
[2019-06-19] MEDS: Loperamide 2 MG Capsule PO (08:21)
[2019-06-19] MEDS: hydroCHLOROthiazide 25 MG Tablet GT (08:21)
[2019-06-19] MEDS: APIXABAN 5 MG TABLET GT ×2 (08:21→21:51)
[2019-06-19] MEDS: Flecainide 100 MG Tablet GT ×2 (08:21→21:52)
[2019-06-19] MEDS: Menthol/Lanolin/Calamine/Znox 113 GM Tube 1 APPLIC TOPICAL ×2 (08:35→21:49)
[2019-06-19] MEDS: NYSTATIN 500,000 UNIT/5 ML UDC 500000 UNIT PO ×4 (09:39→21:52)
--- NOTE | 2019-06-19 09:47 | PN.NEURO_ITS ---
Subjective: Per nursing no issues overnight, slept well. Patient continues to tolerate therapies well. - Physical Exam General: Alert - self and place, redirects easily for year/date, Cooperative HEENT: Atraumatic, PERRLA, EOMI, - - left hemianopia Oral: - - thrush Neck: Supple, No JVD Lungs: Clear to auscultation, No rhonchi, No wheeze, Diminished - lower lobes Cardiovascular: Regular rate, Regular Rhythm Abdomen: Bowel Sounds Present, Soft, Non Tender Extremities: No clubbing, No cyanosis, No edema Neurological: Cranial nerves II-XII grossly intact - left hemianopia , facial Droop - mild left, Slurred Speech - mild, Deep Tendon Reflexes 2+/4 and Symmetrical, - - - Motor strength LUE 0/5, LLE 3/5, RUE/RLE 5/5, Vital Signs Temp Pulse Resp BP Pulse Ox 97.6 F L 62 16 165/89 H 98 06/19/19 07:33 06/19/19 07:33 06/19/19 07:33 06/19/19 07:33 06/18/19 19:26 Oxygen Delivery Method Room Air Weight: 59 kg Body Mass Index (BMI) 23.8 Finger Stick Blood Glucose 143 Intake and Output for Last 24 Hours 06/17/19 06/18/19 06/19/19 23:59 23:59 23:59 Intake Total 2300 / 2300 1780 / 1780 50 / 50 Output Total 200 / 200 Balance 2300 / 2300 1580 / 1580 50 / 50 Microbiology Past 72 Hours 06/15/19 00:30 Blood Culture - Preliminary Blood Culture (Wb) - Left Hand No growth in 48 hours. 06/15/19 00:20 Blood Culture - Preliminary Blood Culture (Wb) - Left Forearm No growth in 48 hours. 06/15/19 01:00 Urine Culture - Final Urine, Catheterized Culture exhibits no growth. STROKE Vital Signs/Narrative: Vital Signs Temp Pulse Resp BP 06/19/19 07:33 97.6 F L 62 16 165/89 H Medical Necessity - Tobacco Use Smoking Status: Never smoker Tobacco Use: Non-smoker Assessment/Plan All Active Problems (Last Updated 06/12/19 @ 14:09 by Kathi Shields) CVA (cerebral vascular accident) (Acute 05/2019) Acute CVA (cerebrovascular accident) (Resolved) Atrial fibrillation with RVR (Resolved) Dehydration (Resolved) Fecal occult blood test positive (Resolved) Heme + stool (Resolved) Hypokalemia (Resolved) Iron deficiency anemia due to chronic blood loss (Resolved) Junctional bradycardia (Resolved) Left facial numbness (Resolved) Migraine (Resolved) Paresthesias in left hand (Resolved) Subtherapeutic international normalized ratio (INR) (Resolved) Supratherapeutic INR (Resolved) The patient is a 79 year old F with PMH of pulmonary HTN, HLD, CAD, DM type II, A-fib with RVR, pacemaker, RUDY, anxiety and depression admitted to [facility] on 06/06/2019 for debility secondary to right MCA post thrombectomy, for 3 hours of therapy daily with a goal of returning home at or near her prior level of independence. She presented to [facility] ER on 05/23/2019 due to patient was found laying on the ground in her garage with left-sided deficits. Pressure was 161/90 with heart rate of 60. NIH was 20. CT of brain suggestive of thrombus in the right MCA and an early infarct in the right MCA territory. CTA head and neck with contrast impression right MCA occlusion. No TPA and patient was transferred to [facility]. On 05/23/19, neurosurgeon Dr. Doll formed the right MCA thrombectomy, due to right [place] occlusion. Postprocedural right ICA arteriogram demonstrated TICI?2b revascularization. CT of head without contrast on 06/04/2019 right MCA territory infarct with decrease edema noted in resolution of previously noted mass-effect of the right lateral ventricle and resolution of previously noted midline shift. Scattered hemorrhage within the infarct is less well seen in particular the right basal ganglia hemorrhage is less tense. No new hemorrhage is identified.. Unable to obtain MRI due to pacemaker. TTE done which showed ejection fraction 65 to 70% and RVSP 41-45 mmHg. LDL 116, HgbA1c 6.5%. Prior to hospitalization patient was on Xarelto 15 mg daily for A. fib, currently has been stopped. Patient lives with niece in a two-story house with first-floor set up, 2 steps to enter. Patient was independent with all ADLs, mobility, and driving prior to hospitalization. Plan - PT for mobility - OT for ADLs - ST for evaluation - Right MCA infarct post thrombectomy on statin, asa, antihypertensives - Pulmonary HTN on valsartan and coreg hold if SBP <130 - A-fib with RVR on flecainide xeralto discontinued - DM type II on humalog S.C., accuchecks ac/hs, HgbA1c 6.5% - CAD on asa - HLD on lipitor LDL 116 - RUDY stable 06/07/19 H/H 33.8/10.9 - Anxiety/depression on cymbalta - Insomnia/visual hallucinations restarted seroquel - Dysphagia failed MBS on 06/13/19 peg placement- on jevity and sterile water flushes, sher water protocol, daily weight and I/O - Hypokalemia on potassium 06/17 K+ 3.4 - Diarrhea probably secondary to Jevity Imodium prn, acidophilus jevity adjusted decreased to 5 x/day - Aspiration pneumonia on zosyn - Thrush on nystatin paint on tongue - GI/DVT prophylaxis pepcid/lovenox, knee high nataly hose - Medical management per hospitalist-consult - Analgesics as needed - Bowel protocol - F/U neurosurgeon Dr. Harrison, PCP, neurology, cardiology
[2019-06-19 10:34] VITALS: BP 100/59; PULSE 61
[2019-06-19 13:52] VITALS: BMI 23.8
[2019-06-19 19:18] VITALS: BP 143/74; PULSE 63; RESP 16; TEMP 36.4; O2SAT 96
[2019-06-19] MEDS: Atorvastatin Calcium 40 MG Tablet GT (21:51)
[2019-06-19] MEDS: QUEtiapine 25 MG Tablet GT (21:52)
[2019-06-19] MEDS: Latanoprost 0.005% 1 Bottle 1 DRP EACH EYE (21:53)
[2019-06-19 22:00] VITALS: PULSE 63; RESP 16; BMI 23.8
[2019-06-20] MEDS: Acetaminophen 650 MG/20 ML UDC 1000 MG GT ×3 (05:00→22:16)
[2019-06-20] MEDS: Jevity 1.5. 1,000 ML Bottle 240 ML GT ×5 (05:00→22:26)
[2019-06-20] MEDS: Carvedilol 12.5 MG Tablet GT ×3 (05:01→22:07)
[2019-06-20 08:50] VITALS: BP 147/81; PULSE 60; RESP 17; TEMP 36.5; O2SAT 97
--- NOTE | 2019-06-20 08:55 | PCM.PN.NEU ---
Subjective: Per nursing, no issues overnight, slept well last night. no episodes of diarrhea yesterday. Patient continues to tolerate therapies. - Physical Exam General: Alert, Oriented x3, Cooperative, - HEENT: Atraumatic, PERRLA, EOMI, - - left hemianopia Oral: - - thrush Neck: Supple, No JVD Lungs: Clear to auscultation, No rhonchi, No wheeze, No rales, Diminished - lower lobes Cardiovascular: Regular rate, Regular Rhythm Abdomen: Bowel Sounds Present, Soft, Non Tender Extremities: No clubbing, No cyanosis, No edema Neurological: Cranial nerves II-XII grossly intact, Deep Tendon Reflexes 2+/4 and Symmetrical, Facial Droop - left, Slurred Speech - mild, - - motor strength RUE/RLE 5/5, LUE 0/5, LLE 3/5 Psych/Mental Status: Normal Affect, Appropriate, Alert and oriented to time, place, person, mood and affect - can be forgetful, redirects easily, cooperative and pleasant Vital Signs Temp Pulse Resp BP Pulse Ox 97.7 F L 60 17 147/81 H 97 06/20/19 08:50 06/20/19 08:50 06/20/19 08:50 06/20/19 08:50 06/20/19 08:50 Oxygen Delivery Method Room Air Weight: 59 kg Body Mass Index (BMI) 23.8 Finger Stick Blood Glucose 143 Intake and Output for Last 24 Hours 06/18/19 06/19/19 06/20/19 23:59 23:59 23:59 Intake Total 3260 / 3260 3380 / 3380 390 / 390 Output Total 850 / 850 1800 / 1800 250 / 250 Balance 2410 / 2410 1580 / 1580 140 / 140 Microbiology Past 72 Hours 06/15/19 00:30 Blood Culture - Final Blood Culture (Wb) - Left Hand No growth in 5 days. 06/15/19 00:20 Blood Culture - Final Blood Culture (Wb) - Left Forearm No growth in 5 days. 06/15/19 01:00 Urine Culture - Final Urine, Catheterized Culture exhibits no growth. STROKE Vital Signs/Narrative: Vital Signs Temp Pulse Resp BP Pulse Ox 06/20/19 08:50 97.7 F L 60 17 147/81 H 97 Medical Necessity - Tobacco Use Smoking Status: Never smoker Tobacco Use: Non-smoker Assessment/Plan All Active Problems (Last Updated 06/12/19 @ 14:09 by Kathi Shields) CVA (cerebral vascular accident) (Acute 05/2019) Acute CVA (cerebrovascular accident) (Resolved) Atrial fibrillation with RVR (Resolved) Dehydration (Resolved) Fecal occult blood test positive (Resolved) Heme + stool (Resolved) Hypokalemia (Resolved) Iron deficiency anemia due to chronic blood loss (Resolved) Junctional bradycardia (Resolved) Left facial numbness (Resolved) Migraine (Resolved) Paresthesias in left hand (Resolved) Subtherapeutic international normalized ratio (INR) (Resolved) Supratherapeutic INR (Resolved) The patient is a 79 year old F with PMH of pulmonary HTN, HLD, CAD, DM type II, A-fib with RVR, pacemaker, RUDY, anxiety and depression admitted to [facility] on 06/06/2019 for debility secondary to right MCA post thrombectomy, for 3 hours of therapy daily with a goal of returning home at or near her prior level of independence. She presented to [facility] ER on 05/23/2019 due to patient was found laying on the ground in her garage with left-sided deficits. Pressure was 161/90 with heart rate of 60. NIH was 20. CT of brain suggestive of thrombus in the right MCA and an early infarct in the right MCA territory. CTA head and neck with contrast impression right MCA occlusion. No TPA and patient was transferred to [facility]. On 05/23/19, neurosurgeon Dr. Doll formed the right MCA thrombectomy, due to right [place] occlusion. Postprocedural right ICA arteriogram demonstrated TICI?2b revascularization. CT of head without contrast on 06/04/2019 right MCA territory infarct with decrease edema noted in resolution of previously noted mass-effect of the right lateral ventricle and resolution of previously noted midline shift. Scattered hemorrhage within the infarct is less well seen in particular the right basal ganglia hemorrhage is less tense. No new hemorrhage is identified.. Unable to obtain MRI due to pacemaker. TTE done which showed ejection fraction 65 to 70% and RVSP 41-45 mmHg. LDL 116, HgbA1c 6.5%. Prior to hospitalization patient was on Xarelto 15 mg daily for A. fib, currently has been stopped. Patient lives with niece in a two-story house with first-floor set up, 2 steps to enter. Patient was independent with all ADLs, mobility, and driving prior to hospitalization. Plan - PT for mobility - OT for ADLs - ST for evaluation - Right MCA infarct post thrombectomy on statin, asa, antihypertensives - Pulmonary HTN on valsartan and coreg hold if SBP <130 - A-fib with RVR on flecainide xeralto discontinued - DM type II on humalog S.C., accuchecks ac/hs, HgbA1c 6.5% - CAD on asa - HLD on lipitor LDL 116 - RUDY stable 06/07/19 H/H 33.8/10.9 - Anxiety/depression on cymbalta - Insomnia/visual hallucinations on seroquel - Dysphagia failed MBS on 06/13/19 peg placement- on jevity and sterile water flushes, sher water protocol, daily weight and I/O - Hypokalemia on potassium 06/17 K+ 3.4 - Diarrhea probably secondary to Jevity Imodium prn, acidophilus jevity adjusted decreased to 5 x/day- improving - Aspiration pneumonia on zosyn - Thrush on nystatin paint on tongue - GI/DVT prophylaxis pepcid/lovenox, knee high nataly hose - Medical management per hospitalist-consult - Analgesics as needed - Bowel protocol - F/U neurosurgeon Dr. Harrison, PCP, neurology, cardiology
[2019-06-20] MEDS: Menthol/Lanolin/Calamine/Znox 113 GM Tube 1 APPLIC TOPICAL ×2 (09:23→22:16)
[2019-06-20] MEDS: Famotidine 20 MG Tablet GT (09:24)
[2019-06-20] MEDS: Losartan Potassium 100 MG Tablet GT (09:24)
[2019-06-20] MEDS: Flecainide 100 MG Tablet GT ×2 (09:24→22:04)
[2019-06-20] MEDS: APIXABAN 5 MG TABLET GT ×2 (09:24→22:07)
[2019-06-20] MEDS: NYSTATIN 500,000 UNIT/5 ML UDC 500000 UNIT PO ×4 (09:24→22:16)
[2019-06-20] MEDS: DULoxetine Hcl 60 MG Capsule PO (09:24)
[2019-06-20] MEDS: hydroCHLOROthiazide 25 MG Tablet GT (09:24)
[2019-06-20 11:04] VITALS: BMI 23.8
[2019-06-20] MEDS: Loperamide 2 MG Capsule PO (13:56)
[2019-06-20 14:05] VITALS: BP 143/78; PULSE 63
--- NOTE | 2019-06-20 16:51 | CHAPLAIN ---
Type of Pastoral Visit ___ Initial Visit _x__ Follow-up Visit ___ On-call Visit ___ General Patient Visit ___ Spiritual Assessment ___ Family Conference ___ Bereavement ___ Rapid Response ___ Code Blue ___ Other (describe below) Pastoral Care Referral From _x__ Patient ___ Family ___ Nurse ___ Physician ___ Radiology Tech ___ Foam Tank Laminator ___ Other (describe below) Sacrament/Intervention _x__ Active listening ___ Anointing ___ Judaism ___ Bereavement ___ Communion ___ Tianna exploration ___ ___ Life review _x__ Prayer ___ Reconciliation ___ Sacrament of Sick _x__ Supportive presence ___ Wedding ___ Other (describe below) Pastoral Comments
[2019-06-20 21:53] VITALS: BP 176/94; PULSE 61; RESP 18; TEMP 36.6; O2SAT 97
[2019-06-20] MEDS: Atorvastatin Calcium 40 MG Tablet GT (22:05)
[2019-06-20] MEDS: QUEtiapine 25 MG Tablet GT (22:06)
[2019-06-20] MEDS: Latanoprost 0.005% 1 Bottle 1 DRP EACH EYE (22:17)
[2019-06-20 22:43] VITALS: BP 136/77; PULSE 63
[2019-06-20 23:01] VITALS: BMI 23.8
[2019-06-21 05:09] VITALS: BP 141/79; PULSE 62; RESP 18; TEMP 36.8; O2SAT 95
[2019-06-21] MEDS: Jevity 1.5. 1,000 ML Bottle 240 ML GT ×5 (05:11→23:11)
[2019-06-21] MEDS: Carvedilol 12.5 MG Tablet GT ×3 (05:11→23:11)
[2019-06-21] MEDS: Acetaminophen 650 MG/20 ML UDC 1000 MG GT ×3 (05:11→23:08)
[2019-06-21] MEDS: Flecainide 100 MG Tablet GT ×2 (09:24→23:10)
[2019-06-21] MEDS: Losartan Potassium 100 MG Tablet GT (09:25)
[2019-06-21] MEDS: NYSTATIN 500,000 UNIT/5 ML UDC 500000 UNIT PO ×4 (09:25→23:10)
[2019-06-21] MEDS: DULoxetine Hcl 60 MG Capsule PO (09:25)
[2019-06-21] MEDS: APIXABAN 5 MG TABLET GT ×2 (09:25→23:10)
[2019-06-21] MEDS: hydroCHLOROthiazide 25 MG Tablet GT (09:25)
[2019-06-21] MEDS: Famotidine 20 MG Tablet GT (09:25)
[2019-06-21] MEDS: Menthol/Lanolin/Calamine/Znox 113 GM Tube 1 APPLIC TOPICAL ×2 (09:42→23:11)
[2019-06-21 09:43] VITALS: BP 117/69; PULSE 62; RESP 18; TEMP 36.6; O2SAT 96
[2019-06-21 10:57] VITALS: BMI 23.8
--- NOTE | 2019-06-21 12:45 | PCM.PN.NEU ---
Subjective: Per nursing, no issues overnight. Patient continues to tolerate therapies well and tolerating jevity, no further diarrhea. - Physical Exam General: Oriented x3, Cooperative, No apparent distress, - - increased tiredness HEENT: Atraumatic, PERRLA, EOMI, - - left hemianopia Oral: - - thrush Neck: Supple, No JVD Lungs: Clear to auscultation, No rhonchi, No wheeze, No rales, Diminished - lower lobes Cardiovascular: Regular rate, Regular Rhythm Abdomen: Bowel Sounds Present, Soft, Non Tender Skin: - - peg placement Neurological: Cranial nerves II-XII grossly intact - left heminopia, Deep Tendon Reflexes 2+/4 and Symmetrical, Facial Droop - mild, Slurred Speech - mild, - - Motor strength RUE/RLE 5/5, LUE 0/5, LLE 3/5 Psych/Mental Status: Normal Affect, Appropriate, Alert and oriented to time, place, person, mood and affect - can be forgetful, redirects easily, cooperative Vital Signs Temp Pulse Resp BP Pulse Ox 98 F 62 18 117/69 96 06/21/19 09:43 06/21/19 09:43 06/21/19 09:43 06/21/19 09:43 06/21/19 09:43 Oxygen Delivery Method Room Air Weight: 62.8 kg Body Mass Index (BMI) 23.8 Finger Stick Blood Glucose 143 Intake and Output for Last 24 Hours 06/19/19 06/20/19 06/21/19 23:59 23:59 23:59 Intake Total 3380 / 3380 1170 / 1170 630 / 630 Output Total 1800 / 1800 700 / 700 250 / 250 Balance 1580 / 1580 470 / 470 380 / 380 Microbiology Past 72 Hours 06/15/19 00:30 Blood Culture - Final Blood Culture (Wb) - Left Hand No growth in 5 days. 06/15/19 00:20 Blood Culture - Final Blood Culture (Wb) - Left Forearm No growth in 5 days. STROKE Vital Signs/Narrative: Vital Signs Temp Pulse Resp BP Pulse Ox 06/21/19 09:43 98 F 62 18 117/69 96 Medical Necessity - Tobacco Use Smoking Status: Never smoker Tobacco Use: Non-smoker Assessment/Plan All Active Problems (Last Updated 06/12/19 @ 14:09 by Kathi Kilner) CVA (cerebral vascular accident) (Acute 05/2019) Acute CVA (cerebrovascular accident) (Resolved) Atrial fibrillation with RVR (Resolved) Dehydration (Resolved) Fecal occult blood test positive (Resolved) Heme + stool (Resolved) Hypokalemia (Resolved) Iron deficiency anemia due to chronic blood loss (Resolved) Junctional bradycardia (Resolved) Left facial numbness (Resolved) Migraine (Resolved) Paresthesias in left hand (Resolved) Subtherapeutic international normalized ratio (INR) (Resolved) Supratherapeutic INR (Resolved) The patient is a 79 year old F with PMH of pulmonary HTN, HLD, CAD, DM type II, A-fib with RVR, pacemaker, RUDY, anxiety and depression admitted to [facility] on 06/06/2019 for debility secondary to right MCA post thrombectomy, for 3 hours of therapy daily with a goal of returning home at or near her prior level of independence. She presented to [facility] ER on 05/23/2019 due to patient was found laying on the ground in her garage with left-sided deficits. Pressure was 161/90 with heart rate of 60. NIH was 20. CT of brain suggestive of thrombus in the right MCA and an early infarct in the right MCA territory. CTA head and neck with contrast impression right MCA occlusion. No TPA and patient was transferred to [facility]. On 05/23/19, neurosurgeon Dr. Doll formed the right MCA thrombectomy, due to right [place] occlusion. Postprocedural right ICA arteriogram demonstrated TICI?2b revascularization. CT of head without contrast on 06/04/2019 right MCA territory infarct with decrease edema noted in resolution of previously noted mass-effect of the right lateral ventricle and resolution of previously noted midline shift. Scattered hemorrhage within the infarct is less well seen in particular the right basal ganglia hemorrhage is less tense. No new hemorrhage is identified.. Unable to obtain MRI due to pacemaker. TTE done which showed ejection fraction 65 to 70% and RVSP 41-45 mmHg. LDL 116, HgbA1c 6.5%. Prior to hospitalization patient was on Xarelto 15 mg daily for A. fib, currently has been stopped. Patient lives with niece in a two-story house with first-floor set up, 2 steps to enter. Patient was independent with all ADLs, mobility, and driving prior to hospitalization. Plan - PT for mobility - OT for ADLs - ST for evaluation - Right MCA infarct post thrombectomy on statin, asa, antihypertensives - Pulmonary HTN on valsartan and coreg hold if SBP <130 - A-fib with RVR on flecainide xeralto discontinued - DM type II on humalog S.C., accuchecks ac/hs, HgbA1c 6.5% - CAD on asa - HLD on lipitor LDL 116 - RUDY stable 06/07/19 H/H 33.8/10.9 - Anxiety/depression on cymbalta - Insomnia/visual hallucinations on seroquel - Dysphagia failed MBS on 06/13/19 peg placement- on jevity and sterile water flushes, sher water protocol, daily weight and I/O - Hypokalemia on potassium 06/17 K+ 3.4 - Diarrhea probably secondary to Jevity Imodium prn, acidophilus jevity adjusted decreased to 5 x/day- improving - Aspiration pneumonia on zosyn - Thrush on nystatin paint on tongue - GI/DVT prophylaxis pepcid/lovenox, knee high nataly hose - Medical management per hospitalist-consult - Analgesics as needed - Bowel protocol - F/U neurosurgeon Dr. Harrison, PCP, neurology, cardiology
[2019-06-21] MEDS: Loperamide 2 MG Capsule PO (13:24)
[2019-06-21 19:16] VITALS: BP 101/79; PULSE 64; RESP 20; TEMP 36.9; O2SAT 95
[2019-06-21 23:06] VITALS: BP 174/86; PULSE 62
[2019-06-21] MEDS: Latanoprost 0.005% 1 Bottle 1 DRP EACH EYE (23:08)
[2019-06-21] MEDS: Atorvastatin Calcium 40 MG Tablet GT (23:10)
[2019-06-21] MEDS: QUEtiapine 25 MG Tablet GT (23:10)
[2019-06-22 06:53] VITALS: BP 137/78; PULSE 64
[2019-06-22] MEDS: Carvedilol 12.5 MG Tablet GT ×3 (06:58→20:49)
[2019-06-22] MEDS: Jevity 1.5. 1,000 ML Bottle 240 ML GT ×5 (06:58→20:49)
[2019-06-22] MEDS: Acetaminophen 650 MG/20 ML UDC 1000 MG GT ×3 (06:58→20:47)
[2019-06-22 07:14] VITALS: BP 137/78; PULSE 64; RESP 18; TEMP 36.9; O2SAT 94
--- NOTE | 2019-06-22 08:00 | CT_ITS ---
STUDY: CT BRAIN WITHOUT CONTRAST REASON FOR EXAM: Female, 79 years old. CVA, follow-up RADIATION DOSAGE (If Supplied By Facility): CTDIvol = ( 44.99 ) mGy, DLP = ( 779.24 ) mGycm TECHNIQUE: Transaxial CT imaging of the brain was performed without administration of intravenous contrast material. Individualized dose optimization techniques were used for this CT. COMPARISON: 06/10/2019 FINDINGS: Normal soft tissue structures. Normal calvarium. There is mild cerebral atrophy with widening of the extra-axial spaces and ventricular dilatation. There are areas of decreased attenuation within the white matter tracts of the supratentorial brain, consistent with microvascular disease changes. Normal basal ganglia and thalami. Normal brainstem. Normal cerebellum. There is no intracranial hemorrhage. Diminished attenuation of the right frontal, parietal and temporal lobes more pronounced since the prior study compatible with expected evolution of MCA infarction. Similar ex vacuo dilation of the right lateral ventricle frontal horn. No hemorrhagic transformation. Normal visualized paranasal sinuses. CT/Brain/Head without Contrast IMPRESSION: Expected evolution of right MCA territory infarction. No midline shift or hemorrhagic transformation. Electronically Signed: Trung Thayer MD (Brooks) at 12:46 EDT , Service support ,
[2019-06-22] MEDS: NYSTATIN 500,000 UNIT/5 ML UDC 500000 UNIT PO ×4 (10:42→20:49)
[2019-06-22] MEDS: Famotidine 20 MG Tablet GT (10:42)
[2019-06-22] MEDS: Flecainide 100 MG Tablet GT ×2 (10:42→20:49)
[2019-06-22] MEDS: DULoxetine Hcl 60 MG Capsule PO (10:42)
[2019-06-22] MEDS: APIXABAN 5 MG TABLET GT ×2 (10:42→20:49)
[2019-06-22] MEDS: hydroCHLOROthiazide 25 MG Tablet GT (10:43)
[2019-06-22] MEDS: Losartan Potassium 100 MG Tablet GT (10:43)
[2019-06-22] MEDS: Menthol/Lanolin/Calamine/Znox 113 GM Tube 1 APPLIC TOPICAL ×2 (10:44→20:50)
[2019-06-22] MEDS: Loperamide 2 MG Capsule PO (13:26)
[2019-06-22 14:27] VITALS: BMI 23.8
[2019-06-22 20:11] VITALS: BP 156/81; PULSE 65; RESP 16; TEMP 36.6; O2SAT 95
[2019-06-22] MEDS: Latanoprost 0.005% 1 Bottle 1 DRP EACH EYE (20:47)
[2019-06-22] MEDS: QUEtiapine 25 MG Tablet GT (20:49)
[2019-06-22] MEDS: Atorvastatin Calcium 40 MG Tablet GT (20:49)
[2019-06-23] MEDS: Acetaminophen 650 MG/20 ML UDC 1000 MG GT ×3 (05:10→21:31)
[2019-06-23] MEDS: Jevity 1.5. 1,000 ML Bottle 240 ML GT ×5 (05:11→21:33)
[2019-06-23] MEDS: Carvedilol 12.5 MG Tablet GT ×3 (05:11→21:33)
[2019-06-23 09:20] VITALS: BP 124/77; PULSE 62; RESP 16; TEMP 36.5; O2SAT 94
[2019-06-23] MEDS: Losartan Potassium 100 MG Tablet GT (09:46)
[2019-06-23] MEDS: Flecainide 100 MG Tablet GT ×2 (09:46→21:32)
[2019-06-23] MEDS: hydroCHLOROthiazide 25 MG Tablet GT (09:46)
[2019-06-23] MEDS: Famotidine 20 MG Tablet GT (09:46)
[2019-06-23] MEDS: DULoxetine Hcl 60 MG Capsule PO (09:46)
[2019-06-23] MEDS: APIXABAN 5 MG TABLET GT ×2 (09:46→21:33)
[2019-06-23] MEDS: Loperamide 2 MG Capsule PO (09:48)
[2019-06-23] MEDS: NYSTATIN 500,000 UNIT/5 ML UDC 500000 UNIT PO ×4 (09:59→21:32)
[2019-06-23] MEDS: Menthol/Lanolin/Calamine/Znox 113 GM Tube 1 APPLIC TOPICAL ×2 (10:01→21:33)
[2019-06-23 11:13] VITALS: BMI 23.8
[2019-06-23 19:17] VITALS: BP 137/77; PULSE 63; RESP 16; TEMP 36.4; O2SAT 96
[2019-06-23] MEDS: Latanoprost 0.005% 1 Bottle 1 DRP EACH EYE (21:31)
[2019-06-23] MEDS: QUEtiapine 25 MG Tablet GT (21:32)
[2019-06-23] MEDS: Atorvastatin Calcium 40 MG Tablet GT (21:36)
[2019-06-24 05:00] VITALS: BMI 23.8
[2019-06-24] MEDS: Acetaminophen 650 MG/20 ML UDC 1000 MG GT ×3 (06:10→20:48)
[2019-06-24] MEDS: Jevity 1.5. 1,000 ML Bottle 240 ML GT ×5 (06:11→20:45)
[2019-06-24] MEDS: Carvedilol 12.5 MG Tablet GT ×3 (06:11→20:46)
[2019-06-24 06:14] VITALS: BP 143/76; PULSE 62
[2019-06-24 07:51] VITALS: BP 143/76; PULSE 62; RESP 12; TEMP 36.6; O2SAT 94
[2019-06-24] MEDS: Losartan Potassium 100 MG Tablet GT (10:15)
[2019-06-24] MEDS: APIXABAN 5 MG TABLET GT ×2 (10:15→20:46)
[2019-06-24] MEDS: DULoxetine Hcl 60 MG Capsule PO (10:15)
[2019-06-24] MEDS: NYSTATIN 500,000 UNIT/5 ML UDC 500000 UNIT PO ×4 (10:16→20:44)
[2019-06-24] MEDS: Famotidine 20 MG Tablet GT (10:16)
[2019-06-24] MEDS: Flecainide 100 MG Tablet GT ×2 (10:16→20:50)
[2019-06-24] MEDS: hydroCHLOROthiazide 25 MG Tablet GT (10:16)
--- NOTE | 2019-06-24 10:23 | CASEMGMT ---
Social Work IDT met with patient, daughter Bre, and son Rosalio for Team Meeting. Discussed patient's progress in therapy. Patient has noted to have decrease in alertness - physician decreased Seroquel dosage. Pt is max x1 while walking with x1 w/c follow and safety. Pt is mod x2 for transfers, as pt is still having difficulty with left leg placement while walking, and requires max cues with UE bathing, grooming, dressing, total assist for LE ADLs. ST is working with swallowing to decrease aspiration with diet, left visual neglect and cognitive deficits. Pt's cognition varies while in conversation, but easily redirectable. Insurance update 06/25, continued stay is not guaranteed. Family chose 3 more facilities to make referrals. Referrals made. Will await outcome. If insurance approves, will ReTeam next week. NBA WeaverW
[2019-06-24] MEDS: Menthol/Lanolin/Calamine/Znox 113 GM Tube 1 APPLIC TOPICAL ×2 (10:36→20:47)
[2019-06-24 12:44] VITALS: BMI 23.8
--- NOTE | 2019-06-24 12:51 | PNCOSIGN_ITS ---
Subjective: Team meeting today. Further details per OT/PT/ST notes. All questions answered. Seroquel decreased to 12.5 mg, noted increase tiredness. Repeat CT of brain on 06/22/19 showed expected evolution of right MCA infarct, without midline shift or hemorrhage. - Physical Exam Vitals/I&O's: Vital Signs Temp Pulse Resp BP Pulse Ox 97.9 F 62 12 143/76 H 94 06/24/19 07:51 06/24/19 07:51 06/24/19 07:51 06/24/19 07:51 06/24/19 07:51 Oxygen Delivery Method Room Air Weight: 62.913 kg Body Mass Index (BMI) 23.8 Finger Stick Blood Glucose 143 Intake and Output for Last 24 Hours 06/22/19 06/23/19 06/24/19 23:59 23:59 23:59 Intake Total 3160 / 3160 3560 / 3560 780 / 780 Output Total 1150 / 1150 700 / 700 Balance 2009 2860 / 2860 780 / 780 General: Cooperative, Lethargic, - - oriented to self and place HEENT: Atraumatic, PERRLA, EOMI, - - left hemianopia Oral: - - thrush Neck: Supple, No JVD Lungs: Clear to auscultation, Normal air movement Cardiovascular: Regular rate, Regular Rhythm Abdomen: Bowel Sounds Present, Soft, Non Tender Extremities: No clubbing, No cyanosis, No edema Skin: Incision - peg site withour redness or drng Neurological: Cranial nerves II-XII grossly intact - except left hemianopia, Deep Tendon Reflexes 2+/4 and Symmetrical, Facial Droop - mild, Slurred Speech - mild, - - Motor strenght RUE/RLE 5/5, LUE 0/5, LLE 3/5 Psych/Mental Status: - - oriented to self and place, cooperative and pleasant, increase tiredness Current Medications Acetaminophen (Tylenol Liquid) 1,000 mg GT TID [facility] Last Admin: 06/24/19 06:10 Dose: 1,000 mg Documented by: Apixaban (Eliquis) 5 mg GT BID [facility] Last Admin: 06/24/19 10:15 Dose: 5 mg Documented by: Atorvastatin Calcium (Lipitor) 40 mg GT QHS [facility] Last Admin: 06/23/19 21:36 Dose: 40 mg Documented by: Bisacodyl (Dulcolax) 10 mg RECTAL .PRN X 1 PRN PRN Reason: Constipation Calamine/Phenol (Calmoseptine Ointment) 1 applic TOPICAL BID [facility]; Protocol Last Admin: 06/24/19 10:36 Dose: 1 applicatio Documented by: Carvedilol (Coreg) 12.5 mg GT Q8 [facility] Last Admin: 06/24/19 06:11 Dose: 12.5 mg Documented by: Duloxetine HCl (Cymbalta) 60 mg PO DAILY [facility] Last Admin: 06/24/19 10:15 Dose: 60 mg Documented by: Enteral Nutritional Formula (Jevity 1.5) 240 ml GT 5X/DAY [facility] Last Admin: 06/24/19 10:17 Dose: 240 ml Documented by: Famotidine (Pepcid) 20 mg GT DAILY [facility] Last Admin: 06/24/19 10:16 Dose: 20 mg Documented by: Flecainide Acetate (Tambocor) 100 mg GT BID [facility] Last Admin: 06/24/19 10:16 Dose: 100 mg Documented by: Hydrochlorothiazide (Hctz) 25 mg GT DAILY [facility] Last Admin: 06/24/19 10:16 Dose: 25 mg Documented by: Lactobacillus Acidophilus (Acidophilus) 1 tablet GT BID [facility] Last Admin: 06/24/19 10:15 Dose: 1 tablet Documented by: Latanoprost (Xalatan Opthalmic) 1 drop EACH EYE DAILY@2200 [facility] Last Admin: 06/23/19 21:31 Dose: 1 drop Documented by: Loperamide HCl (Imodium) 2 mg PO Q4H PRN PRN PRN Reason: DIARRHEA/LOOSE STOOLS Last Admin: 06/23/19 09:48 Dose: 2 mg Documented by: Losartan Potassium (Cozaar) 100 mg GT DAILY [facility] Last Admin: 06/24/19 10:15 Dose: 100 mg Documented by: Magnesium Hydroxide (Milk Of Magnesia) 30 ml PO .PRN X 1 PRN PRN Reason: Constipation Nystatin (Nystatin) 500,000 unit PO 4X/DAY [facility] Last Admin: 06/24/19 10:16 Dose: 500,000 unit Documented by: Polyethylene Glycol (Miralax) 17 gm GT DAILY [facility] Last Admin: 06/24/19 10:16 Dose: Not Given Documented by: Potassium Chloride (Potassium Chl Soln) 20 meq GT DAILY [facility] Last Admin: 06/24/19 10:16 Dose: 20 meq Documented by: Quetiapine Fumarate (Seroquel) 12.5 mg GT QHS [facility] Sodium Chloride () 5 - 15 ml IV UD PRN PRN Reason: SALINE FLUSH Last Admin: 06/19/19 06:13 Dose: 10 ml Documented by: Assessment/Plan All Active Problems (Last Updated 06/12/19 @ 14:09 by Kathi Shields) CVA (cerebral vascular accident) (Acute 05/2019) Acute CVA (cerebrovascular accident) (Resolved) Atrial fibrillation with RVR (Resolved) Dehydration (Resolved) Fecal occult blood test positive (Resolved) Heme + stool (Resolved) Hypokalemia (Resolved) Iron deficiency anemia due to chronic blood loss (Resolved) Junctional bradycardia (Resolved) Left facial numbness (Resolved) Migraine (Resolved) Paresthesias in left hand (Resolved) Subtherapeutic international normalized ratio (INR) (Resolved) Supratherapeutic INR (Resolved) The patient is a 79 year old F with PMH of pulmonary HTN, HLD, CAD, DM type II, A-fib with RVR, pacemaker, RUDY, anxiety and depression admitted to [facility] on 06/06/2019 for debility secondary to right MCA post thrombectomy, for 3 hours of therapy daily with a goal of returning home at or near her prior level of independence. She presented to [facility] ER on 05/23/2019 due to patient was found laying on the ground in her garage with left-sided deficits. Pressure was 161/90 with heart rate of 60. NIH was 20. CT of brain suggestive of thrombus in the right MCA and an early infarct in the right MCA territory. CTA head and neck with contrast impression right MCA occlusion. No TPA and patient was transferred to [facility]. On 05/23/19, neurosurgeon Dr. Doll formed the right MCA thrombectomy, due to right [place] occlusion. Postprocedural right ICA arteriogram demonstrated TICI?2b revascularization. CT of head without contrast on 06/04/2019 right MCA territory infarct with decrease edema noted in resolution of previously noted mass-effect of the right lateral ventricle and resolution of previously noted midline shift. Scattered hemorrhage within the infarct is less well seen in particular the right basal ganglia hemorrhage is less tense. No new hemorrhage is identified.. Unable to obtain MRI due to pacemaker. TTE done which showed ejection fraction 65 to 70% and RVSP 41-45 mmHg. LDL 116, HgbA1c 6.5%. Prior to hospitalization patient was on Xarelto 15 mg daily for A. fib, currently has been stopped. Patient lives with niece in a two-story house with first-floor set up, 2 steps to enter. Patient was independent with all ADLs, mobility, and driving prior to hospitalization. Plan - PT for mobility - OT for ADLs - ST for evaluation - Right MCA infarct post thrombectomy on statin, asa, antihypertensives r Repeat CT of brain on 06/22/19 showed expected evolution of right MCA infarct, without midline shift or hemorrhage. - Pulmonary HTN on valsartan and coreg hold if SBP <130 - A-fib with RVR on flecainide xeralto discontinued - DM type II on humalog S.C., accuchecks ac/hs, HgbA1c 6.5% - CAD on asa - HLD on lipitor LDL 116 - RUDY stable 06/07/19 H/H 33.8/10.9 - Anxiety/depression on cymbalta - Insomnia/visual hallucinations on seroquel - Dysphagia failed MBS on 06/13/19 peg placement- on jevity and sterile water flushes, sher water protocol, daily weight and I/O - Hypokalemia on potassium 06/17 K+ 3.4 - Diarrhea probably secondary to Jevity Imodium prn, acidophilus jevity adjusted decreased to 5 x/day- improving - Aspiration pneumonia on zosyn - Thrush on nystatin paint on tongue - GI/DVT prophylaxis pepcid/lovenox, knee high nataly hose - Medical management per hospitalist-consult - Analgesics as needed - Bowel protocol - F/U neurosurgeon Dr. Harrison, PCP, neurology, cardiology
--- NOTE | 2019-06-24 13:57 | PN_ITS ---
Subjective: CC follow-up acute CVA Patient seen has significant left-sided neglect Objective: GENERAL: Significant left-sided neglect HEENT: Oral thrush EYES; Anicteric, Normal Conjunctiva NECK; supple, normal thyroid, RESPIRATORY: Diminished to auscultation CARDIOVASCULAR: Irregular S1 S2, GI: soft, non-tender, normoactive bowel sounds, : No Renal angle tenderness; EXTREMITIES: No edema, no clubbing, NEURO: Awake; left sided weakness SKIN: No Rash PSYCH;flat affect - Physical Exam Vitals/I&O's: Vital Signs Temp Pulse Resp BP Pulse Ox 97.9 F 62 12 143/76 H 94 06/24/19 07:51 06/24/19 07:51 06/24/19 07:51 06/24/19 07:51 06/24/19 07:51 Oxygen Delivery Method Room Air Weight: 62.913 kg Body Mass Index (BMI) 23.8 Finger Stick Blood Glucose 143 Intake and Output for Last 24 Hours 06/22/19 06/23/19 06/24/19 23:59 23:59 23:59 Intake Total 3160 / 3160 3560 / 3560 780 / 780 Output Total 1150 / 1150 700 / 700 Balance 2009 2860 / 2860 780 / 780 Current Medications Acetaminophen (Tylenol Liquid) 1,000 mg GT TID [facility] Last Admin: 06/24/19 06:10 Dose: 1,000 mg Documented by: Apixaban (Eliquis) 5 mg GT BID [facility] Last Admin: 06/24/19 10:15 Dose: 5 mg Documented by: Atorvastatin Calcium (Lipitor) 40 mg GT QHS [facility] Last Admin: 06/23/19 21:36 Dose: 40 mg Documented by: Bisacodyl (Dulcolax) 10 mg RECTAL .PRN X 1 PRN PRN Reason: Constipation Calamine/Phenol (Calmoseptine Ointment) 1 applic TOPICAL BID [facility]; Protocol Last Admin: 06/24/19 10:36 Dose: 1 applicatio Documented by: Carvedilol (Coreg) 12.5 mg GT Q8 [facility] Last Admin: 06/24/19 06:11 Dose: 12.5 mg Documented by: Duloxetine HCl (Cymbalta) 60 mg PO DAILY [facility] Last Admin: 06/24/19 10:15 Dose: 60 mg Documented by: Enteral Nutritional Formula (Jevity 1.5) 240 ml GT 5X/DAY [facility] Last Admin: 06/24/19 10:17 Dose: 240 ml Documented by: Famotidine (Pepcid) 20 mg GT DAILY [facility] Last Admin: 06/24/19 10:16 Dose: 20 mg Documented by: Flecainide Acetate (Tambocor) 100 mg GT BID [facility] Last Admin: 06/24/19 10:16 Dose: 100 mg Documented by: Hydrochlorothiazide (Hctz) 25 mg GT DAILY [facility] Last Admin: 06/24/19 10:16 Dose: 25 mg Documented by: Lactobacillus Acidophilus (Acidophilus) 1 tablet GT BID [facility] Last Admin: 06/24/19 10:15 Dose: 1 tablet Documented by: Latanoprost (Xalatan Opthalmic) 1 drop EACH EYE DAILY@2200 [facility] Last Admin: 06/23/19 21:31 Dose: 1 drop Documented by: Loperamide HCl (Imodium) 2 mg PO Q4H PRN PRN PRN Reason: DIARRHEA/LOOSE STOOLS Last Admin: 06/23/19 09:48 Dose: 2 mg Documented by: Losartan Potassium (Cozaar) 100 mg GT DAILY [facility] Last Admin: 06/24/19 10:15 Dose: 100 mg Documented by: Magnesium Hydroxide (Milk Of Magnesia) 30 ml PO .PRN X 1 PRN PRN Reason: Constipation Nystatin (Nystatin) 500,000 unit PO 4X/DAY [facility] Last Admin: 06/24/19 10:16 Dose: 500,000 unit Documented by: Polyethylene Glycol (Miralax) 17 gm GT DAILY [facility] Last Admin: 06/24/19 10:16 Dose: Not Given Documented by: Potassium Chloride (Potassium Chl Soln) 20 meq GT DAILY [facility] Last Admin: 06/24/19 10:16 Dose: 20 meq Documented by: Quetiapine Fumarate (Seroquel) 12.5 mg GT QHS [facility] Sodium Chloride () 5 - 15 ml IV UD PRN PRN Reason: SALINE FLUSH Last Admin: 06/19/19 06:13 Dose: 10 ml Documented by: Medical Necessity - Tobacco Use Smoking Status: Never smoker Tobacco Use: Non-smoker Assessment/Plan All Active Problems (Last Updated 06/12/19 @ 14:09 by Kathi Shields) CVA (cerebral vascular accident) (Acute 05/2019) Acute CVA (cerebrovascular accident) (Resolved) Atrial fibrillation with RVR (Resolved) Dehydration (Resolved) Fecal occult blood test positive (Resolved) Heme + stool (Resolved) Hypokalemia (Resolved) Iron deficiency anemia due to chronic blood loss (Resolved) Junctional bradycardia (Resolved) Left facial numbness (Resolved) Migraine (Resolved) Paresthesias in left hand (Resolved) Subtherapeutic international normalized ratio (INR) (Resolved) Supratherapeutic INR (Resolved) Patient is a 79-year-old lady admitted to the inpatient rehab unit with significant debility secondary to acute right MCA stroke with residual left- sided paralysis 1. Acute right MCA ischemic stroke with residual left-sided paralysis. Patient underwent right ICA thrombectomy subsequently transferred to the rehab unit at the [facility] ~06/12/2019: Patient scheduled to undergo PEG tube placement after failing speech and swallow eval ?06/14/2019 patient underwent PEG tube placement the day prior subsequently started on tube feeding ?06/24/2019 patient seen has significant left-sided neglect. 2. Did aspiration pneumonia Completed treatment with Zosyn 3. Oral candidiasis ~ Patient was treated with Diflucan 200 mg x 1 and subsequently 100 mg daily for total of 7 days 4. Hypertension ~ blood pressure controlled, home medications continued with dose adjustment as needed 5. Paroxysmal atrial fibrillation Patient is on flecainide was on Xarelto which is currently being held. Her post thrombectomy. Was apparently complicated by acute cytotoxic cerebral edema with brain compression 6. Hypokalemia corrected per protocol 7. Diabetes mellitus type II ~Diet controlled, placed on Accu-Cheks a.c. and at bedtime and covered with sliding scale insulin 8. Depression with anxiety patient is on Seroquel as well as Ativan as needed 9. DVT prophylaxis SC Lovenox Code Visit Inpatient E&M: 84573 Subs Hosp L2
[2019-06-24 19:14] VITALS: BP 152/91; PULSE 63; RESP 16; TEMP 36.8; O2SAT 95
[2019-06-24] MEDS: QUEtiapine 25 MG Tablet 12.5 MG GT (20:42)
[2019-06-24] MEDS: Atorvastatin Calcium 40 MG Tablet GT (20:45)
[2019-06-24] MEDS: Latanoprost 0.005% 1 Bottle 1 DRP EACH EYE (20:48)
[2019-06-24 21:35] VITALS: BMI 23.8
[2019-06-24 22:00] VITALS: PULSE 63; RESP 16; O2SAT 95
[2019-06-25] MEDS: Jevity 1.5. 1,000 ML Bottle 240 ML GT ×5 (05:06→21:10)
[2019-06-25] MEDS: Carvedilol 12.5 MG Tablet GT ×3 (05:06→21:09)
[2019-06-25] MEDS: Acetaminophen 650 MG/20 ML UDC 1000 MG GT ×3 (05:06→21:11)
[2019-06-25 07:05] VITALS: BP 156/84; PULSE 64; RESP 17; TEMP 36.6; O2SAT 100
--- NOTE | 2019-06-25 08:08 | PNCOSIGN_ITS ---
Subjective: Per nursing, patient was restless and having visual hallucinations last night. Patient was awake majority of the night. Seroquel increased back to 25 mg. Increased tiredness this am, closes eyes quickly during conversation. No acute distress. - Physical Exam Vitals/I&O's: Vital Signs Temp Pulse Resp BP Pulse Ox 97.9 F 64 17 156/84 H 100 06/25/19 07:05 06/25/19 07:05 06/25/19 07:05 06/25/19 07:05 06/25/19 07:05 Oxygen Delivery Method Room Air Weight: 63.5 kg Body Mass Index (BMI) 23.8 Finger Stick Blood Glucose 143 Intake and Output for Last 24 Hours 06/23/19 06/24/19 06/25/19 23:59 23:59 23:59 Intake Total 3560 / 3560 3180 / 3180 390 / 390 Output Total 700 / 700 650 / 650 400 / 400 Balance 2860 / 2860 2530 / 2530 -10 / -10 General: Cooperative, No apparent distress, Lethargic, - - self only HEENT: Atraumatic, PERRLA, EOMI, - - left hemianopia Oral: - - thrush Neck: Supple, No JVD Lungs: Clear to auscultation, Normal air movement Cardiovascular: Regular rate, Regular Rhythm Abdomen: Bowel Sounds Present, Soft, Non Tender Extremities: No clubbing, No cyanosis, No edema Skin: Incision - peg site without redness or drng Neurological: Cranial nerves II-XII grossly intact - except left hemianopia, Deep Tendon Reflexes 2+/4 and Symmetrical, Facial Droop - minimal, Slurred Speech - mild, - - Motor strength RUE/RLE 5/5, LUE 0/5, LLE 3/5 Psych/Mental Status: - - oreinted to self, lethargy this am, cooperative, pleasant, closes eyes during conversation. Current Medications Acetaminophen (Tylenol Liquid) 1,000 mg GT TID [facility] Last Admin: 06/25/19 05:06 Dose: 1,000 mg Documented by: Apixaban (Eliquis) 5 mg GT BID [facility] Last Admin: 06/24/19 20:46 Dose: 5 mg Documented by: Atorvastatin Calcium (Lipitor) 40 mg GT QHS [facility] Last Admin: 06/24/19 20:45 Dose: 40 mg Documented by: Bisacodyl (Dulcolax) 10 mg RECTAL .PRN X 1 PRN PRN Reason: Constipation Calamine/Phenol (Calmoseptine Ointment) 1 applic TOPICAL BID [facility]; Protocol Last Admin: 06/24/19 20:47 Dose: 1 applicatio Documented by: Carvedilol (Coreg) 12.5 mg GT Q8 [facility] Last Admin: 06/25/19 05:06 Dose: 12.5 mg Documented by: Duloxetine HCl (Cymbalta) 60 mg PO DAILY [facility] Last Admin: 06/24/19 10:15 Dose: 60 mg Documented by: Enteral Nutritional Formula (Jevity 1.5) 240 ml GT 5X/DAY [facility] Last Admin: 06/25/19 05:06 Dose: 240 ml Documented by: Famotidine (Pepcid) 20 mg GT DAILY [facility] Last Admin: 06/24/19 10:16 Dose: 20 mg Documented by: Flecainide Acetate (Tambocor) 100 mg GT BID [facility] Last Admin: 06/24/19 20:50 Dose: 100 mg Documented by: Hydrochlorothiazide (Hctz) 25 mg GT DAILY [facility] Last Admin: 06/24/19 10:16 Dose: 25 mg Documented by: Lactobacillus Acidophilus (Acidophilus) 1 tablet GT BID [facility] Last Admin: 06/24/19 20:47 Dose: 1 tablet Documented by: Latanoprost (Xalatan Opthalmic) 1 drop EACH EYE DAILY@2200 [facility] Last Admin: 06/24/19 20:48 Dose: 1 drop Documented by: Loperamide HCl (Imodium) 2 mg PO Q4H PRN PRN PRN Reason: DIARRHEA/LOOSE STOOLS Last Admin: 06/23/19 09:48 Dose: 2 mg Documented by: Losartan Potassium (Cozaar) 100 mg GT DAILY [facility] Last Admin: 06/24/19 10:15 Dose: 100 mg Documented by: Magnesium Hydroxide (Milk Of Magnesia) 30 ml PO .PRN X 1 PRN PRN Reason: Constipation Nystatin (Nystatin) 500,000 unit PO 4X/DAY [facility] Last Admin: 06/24/19 20:44 Dose: 500,000 unit Documented by: Polyethylene Glycol (Miralax) 17 gm GT DAILY [facility] Last Admin: 06/24/19 10:16 Dose: Not Given Documented by: Potassium Chloride (Potassium Chl Soln) 20 meq GT DAILY [facility] Last Admin: 06/24/19 10:16 Dose: 20 meq Documented by: Quetiapine Fumarate (Seroquel) 25 mg GT QHS [facility] Sodium Chloride () 5 - 15 ml IV UD PRN PRN Reason: SALINE FLUSH Last Admin: 06/19/19 06:13 Dose: 10 ml Documented by: Assessment/Plan All Active Problems (Last Updated 06/12/19 @ 14:09 by Kathi hSields) CVA (cerebral vascular accident) (Acute 05/2019) Acute CVA (cerebrovascular accident) (Resolved) Atrial fibrillation with RVR (Resolved) Dehydration (Resolved) Fecal occult blood test positive (Resolved) Heme + stool (Resolved) Hypokalemia (Resolved) Iron deficiency anemia due to chronic blood loss (Resolved) Junctional bradycardia (Resolved) Left facial numbness (Resolved) Migraine (Resolved) Paresthesias in left hand (Resolved) Subtherapeutic international normalized ratio (INR) (Resolved) Supratherapeutic INR (Resolved) The patient is a 79 year old F with PMH of pulmonary HTN, HLD, CAD, DM type II, A-fib with RVR, pacemaker, RUDY, anxiety and depression admitted to [facility] on 06/06/2019 for debility secondary to right MCA post thrombectomy, for 3 hours of therapy daily with a goal of returning home at or near her prior level of independence. She presented to [facility] ER on 05/23/2019 due to patient was found laying on the ground in her garage with left-sided deficits. Pressure was 161/90 with heart rate of 60. NIH was 20. CT of brain suggestive of thrombus in the right MCA and an early infarct in the right MCA territory. CTA head and neck with contrast impression right MCA occlusion. No TPA and patient was transferred to [facility]. On 05/23/19, neurosurgeon Dr. Doll formed the right MCA thrombectomy, due to right LA occlusion. Postprocedural right ICA arteriogram demonstrated TICI?2b revascularization. CT of head without contrast on 06/04/2019 right MCA territory infarct with decrease edema noted in resolution of previously noted mass-effect of the right lateral ventricle and resolution of previously noted midline shift. Scattered hemorrhage within the infarct is less well seen in particular the right basal ganglia hemorrhage is less tense. No new hemorrhage is identified.. Unable to obtain MRI due to pa anthony. TTE done which showed ejection fraction 65 to 70% and RVSP 41-45 mmHg. LDL 116, HgbA1c 6.5%. Prior to hospitalization patient was on Xarelto 15 mg daily for A. fib, currently has been stopped. Patient lives with niece in a two-story house with first-floor set up, 2 steps to enter. Patient was independent with all ADLs, mobility, and driving prior to hospitalization. Plan - PT for mobility - OT for ADLs - ST for evaluation - Right MCA infarct post thrombectomy on statin, asa, antihypertensives r Repeat CT of brain on 06/22/19 showed expected evolution of right MCA infarct, without midline shift or hemorrhage. - Pulmonary HTN on valsartan and coreg hold if SBP <130 - A-fib with RVR on flecainide xeralto discontinued - DM type II on humalog S.C., accuchecks ac/hs, HgbA1c 6.5% - CAD on asa - HLD on lipitor LDL 116 - RUDY stable 06/07/19 H/H 33.8/10.9 - Anxiety/depression on cymbalta - Insomnia/visual hallucinations on seroquel - Dysphagia failed MBS on 06/13/19 peg placement- on jevity and sterile water flushes, sher water protocol, daily weight and I/O - Hypokalemia on potassium 06/17 K+ 3.4 - Diarrhea probably secondary to Jevity Imodium prn, acidophilus jevity adjusted decreased to 5 x/day- improving - Aspiration pneumonia on zosyn completed - Thrush on nystatin paint on tongue - GI/DVT prophylaxis pepcid/lovenox, knee high nataly hose - Medical management per hospitalist-consult - Analgesics as needed - Bowel protocol - F/U neurosurgeon Dr. Harrison, PCP, neurology, cardiology
[2019-06-25] MEDS: Flecainide 100 MG Tablet GT ×2 (10:00→21:11)
[2019-06-25] MEDS: NYSTATIN 500,000 UNIT/5 ML UDC 500000 UNIT PO ×4 (10:00→21:10)
[2019-06-25] MEDS: DULoxetine Hcl 60 MG Capsule PO (10:01)
[2019-06-25] MEDS: APIXABAN 5 MG TABLET GT ×2 (10:01→21:09)
[2019-06-25] MEDS: hydroCHLOROthiazide 25 MG Tablet GT (10:01)
[2019-06-25] MEDS: Famotidine 20 MG Tablet GT (10:02)
[2019-06-25] MEDS: Menthol/Lanolin/Calamine/Znox 113 GM Tube 1 APPLIC TOPICAL ×2 (10:03→21:09)
[2019-06-25] MEDS: Losartan Potassium 100 MG Tablet GT (10:03)
[2019-06-25 11:19] VITALS: BMI 23.8
[2019-06-25 13:57] VITALS: BP 137/81; PULSE 60
[2019-06-25] MEDS: Loperamide 2 MG Capsule PO (14:31)
--- NOTE | 2019-06-25 15:24 | CASEMGMT ---
Social Work Insurance approved patient - NRD 07/02. Spoke with MARY JANE Miller, dtr - informed her that [facility] accepted pt, and [facility] and [facility] are out of network with 50% coverage. Dtr will discuss with family which facility when pt is cut. Explained insurance benefits in SNF/LTC and Medicaid. Pt will continue working with therapy and [employer] next week. Shannan Mcclellan, EMPLOYMENT MANAGER [employer]
[2019-06-25 19:12] VITALS: BP 162/82; PULSE 62; RESP 16; TEMP 36.3; O2SAT 94
[2019-06-25] MEDS: Atorvastatin Calcium 40 MG Tablet GT (21:10)
[2019-06-25] MEDS: QUEtiapine 25 MG Tablet GT (21:10)
[2019-06-25] MEDS: Latanoprost 0.005% 1 Bottle 1 DRP EACH EYE (21:11)
[2019-06-25 21:44] VITALS: BMI 23.8
[2019-06-25 22:00] VITALS: PULSE 62; RESP 16; O2SAT 94
[2019-06-26] MEDS: Acetaminophen 650 MG/20 ML UDC 1000 MG GT ×3 (05:26→20:54)
[2019-06-26] MEDS: Jevity 1.5. 1,000 ML Bottle 240 ML GT ×5 (05:26→20:55)
[2019-06-26] MEDS: Carvedilol 12.5 MG Tablet GT ×3 (05:26→20:55)
[2019-06-26 06:58] VITALS: BP 122/67; PULSE 76; RESP 19; TEMP 36.6; O2SAT 95
[2019-06-26] MEDS: Losartan Potassium 100 MG Tablet GT (09:37)
[2019-06-26] MEDS: Famotidine 20 MG Tablet GT (09:37)
[2019-06-26] MEDS: APIXABAN 5 MG TABLET GT ×2 (09:37→20:55)
[2019-06-26] MEDS: NYSTATIN 500,000 UNIT/5 ML UDC 500000 UNIT PO ×4 (09:37→20:53)
[2019-06-26] MEDS: Flecainide 100 MG Tablet GT ×2 (09:37→20:54)
[2019-06-26] MEDS: hydroCHLOROthiazide 25 MG Tablet GT (09:37)
[2019-06-26] MEDS: DULoxetine Hcl 60 MG Capsule PO (09:37)
[2019-06-26] MEDS: Menthol/Lanolin/Calamine/Znox 113 GM Tube 1 APPLIC TOPICAL ×2 (09:38→20:54)
--- NOTE | 2019-06-26 11:22 | PCM.PN.HOSP ---
Subjective: Follow-up acute CVA Patient was restless during the prior night resulting in her Seroquel being increased Objective: GENERAL: Significant left-sided neglect HEENT: Oral thrush EYES; Anicteric, Normal Conjunctiva NECK; supple, normal thyroid, RESPIRATORY: Diminished to auscultation CARDIOVASCULAR: Irregular S1 S2, GI: soft, non-tender, normoactive bowel sounds, : No Renal angle tenderness; EXTREMITIES: No edema, no clubbing, NEURO: Awake; left sided weakness SKIN: No Rash PSYCH;flat affect Vitals/I&O's: Vital Signs Temp Pulse Resp BP Pulse Ox 97.9 F 76 19 H 122/67 H 95 06/26/19 06:58 06/26/19 06:58 06/26/19 06:58 06/26/19 06:58 06/26/19 06:58 Oxygen Delivery Method Room Air Weight: 64 kg Body Mass Index (BMI) 23.8 Finger Stick Blood Glucose 143 Intake and Output for Last 24 Hours 06/24/19 06/25/19 06/26/19 23:59 23:59 23:59 Intake Total 3180 / 3180 2700 / 2700 780 / 780 Output Total 650 / 650 700 / 700 600 / 600 Balance 2530 / 2530 1999 / 1999 180 / 180 Current Medications Acetaminophen (Tylenol Liquid) 1,000 mg GT TID [facility] Last Admin: 06/26/19 05:26 Dose: 1,000 mg Documented by: Apixaban (Eliquis) 5 mg GT BID [facility] Last Admin: 06/26/19 09:37 Dose: 5 mg Documented by: Atorvastatin Calcium (Lipitor) 40 mg GT QHS [facility] Last Admin: 06/25/19 21:10 Dose: 40 mg Documented by: Bisacodyl (Dulcolax) 10 mg RECTAL .PRN X 1 PRN PRN Reason: Constipation Calamine/Phenol (Calmoseptine Ointment) 1 applic TOPICAL BID [facility]; Protocol Last Admin: 06/26/19 09:38 Dose: 1 applicatio Documented by: Carvedilol (Coreg) 12.5 mg GT Q8 [facility] Last Admin: 06/26/19 05:26 Dose: 12.5 mg Documented by: Duloxetine HCl (Cymbalta) 60 mg PO DAILY [facility] Last Admin: 06/26/19 09:37 Dose: 60 mg Documented by: Enteral Nutritional Formula (Jevity 1.5) 240 ml GT 5X/DAY [facility] Last Admin: 06/26/19 09:37 Dose: 240 ml Documented by: Famotidine (Pepcid) 20 mg GT DAILY [facility] Last Admin: 06/26/19 09:37 Dose: 20 mg Documented by: Flecainide Acetate (Tambocor) 100 mg GT BID [facility] Last Admin: 06/26/19 09:37 Dose: 100 mg Documented by: Hydrochlorothiazide (Hctz) 25 mg GT DAILY [facility] Last Admin: 06/26/19 09:37 Dose: 25 mg Documented by: Lactobacillus Acidophilus (Acidophilus) 1 tablet GT BID [facility] Last Admin: 06/26/19 09:37 Dose: 1 tablet Documented by: Latanoprost (Xalatan Opthalmic) 1 drop EACH EYE DAILY@2200 [facility] Last Admin: 06/25/19 21:11 Dose: 1 drop Documented by: Loperamide HCl (Imodium) 2 mg PO Q4H PRN PRN PRN Reason: DIARRHEA/LOOSE STOOLS Last Admin: 06/25/19 14:31 Dose: 2 mg Documented by: Losartan Potassium (Cozaar) 100 mg GT DAILY [facility] Last Admin: 06/26/19 09:37 Dose: 100 mg Documented by: Magnesium Hydroxide (Milk Of Magnesia) 30 ml PO .PRN X 1 PRN PRN Reason: Constipation Nystatin (Nystatin) 500,000 unit PO 4X/DAY [facility] Last Admin: 06/26/19 09:37 Dose: 500,000 unit Documented by: Potassium Chloride (Potassium Chl Soln) 20 meq GT DAILY [facility] Last Admin: 06/26/19 09:37 Dose: 20 meq Documented by: Quetiapine Fumarate (Seroquel) 25 mg GT QHS [facility] Last Admin: 06/25/19 21:10 Dose: 25 mg Documented by: Sodium Chloride () 5 - 15 ml IV UD PRN PRN Reason: SALINE FLUSH Last Admin: 06/19/19 06:13 Dose: 10 ml Documented by: Medical Necessity - Tobacco Use Smoking Status: Never smoker Tobacco Use: Non-smoker Assessment/Plan All Active Problems (Last Updated 06/12/19 @ 14:09 by Kathi Shields) CVA (cerebral vascular accident) (Acute 05/2019) Acute CVA (cerebrovascular accident) (Resolved) Atrial fibrillation with RVR (Resolved) Dehydration (Resolved) Fecal occult blood test positive (Resolved) Heme + stool (Resolved) Hypokalemia (Resolved) Iron deficiency anemia due to chronic blood loss (Resolved) Junctional bradycardia (Resolved) Left facial numbness (Resolved) Migraine (Resolved) Paresthesias in left hand (Resolved) Subtherapeutic international normalized ratio (INR) (Resolved) Supratherapeutic INR (Resolved) Patient is a 79-year-old lady admitted to the inpatient rehab unit with significant debility secondary to acute right MCA stroke with residual left-sided paralysis 1. Acute right MCA ischemic stroke with residual left-sided paralysis. Patient underwent right ICA thrombectomy subsequently transferred to the rehab unit at the [facility] ~06/12/2019: Patient scheduled to undergo PEG tube placement after failing speech and swallow eval ?06/14/2019 patient underwent PEG tube placement the day prior subsequently started on tube feeding ?06/24/2019 patient seen has significant left-sided neglect. ?06/26/2019: Patient seen much more awake compared to the prior day 2. Did aspiration pneumonia Completed treatment with Zosyn 3. Oral candidiasis ~ Patient was treated with Diflucan 200 mg x 1 and subsequently 100 mg daily for total of 7 days 4. Hypertension ~ blood pressure controlled, home medications continued with dose adjustment as needed 5. Paroxysmal atrial fibrillation Patient is on flecainide was on Xarelto which is currently being held. Her post thrombectomy. Was apparently complicated by acute cytotoxic cerebral edema with brain compression 6. Hypokalemia corrected per protocol 7. Diabetes mellitus type II ~Diet controlled, placed on Accu-Cheks a.c. and at bedtime and covered with sliding scale insulin 8. Depression with anxiety patient is on Seroquel as well as Ativan as needed 9. DVT prophylaxis SC Lovenox Code Visit Inpatient E&M: 99794 Subs Hosp L2
--- NOTE | 2019-06-26 12:55 | PCM.PN.NEU ---
Subjective: Per nursing, patient slept well last night, without restlessness or visual hallucinations- seroquel effective. Patient alert this am. No further episodes of diarrhea. Patient continues to tolerate therapies. - Physical Exam Vitals/I&O's: Vital Signs Temp Pulse Resp BP Pulse Ox 97.9 F 76 19 H 122/67 H 95 06/26/19 06:58 06/26/19 06:58 06/26/19 06:58 06/26/19 06:58 06/26/19 06:58 Oxygen Delivery Method Room Air Weight: 64 kg Body Mass Index (BMI) 23.8 Finger Stick Blood Glucose 143 Intake and Output for Last 24 Hours 06/24/19 06/25/19 06/26/19 23:59 23:59 23:59 Intake Total 3180 / 3180 2700 / 2700 780 / 780 Output Total 650 / 650 700 / 700 600 / 600 Balance 2530 / 2530 1999 / 1999 180 / 180 General: Alert - slef and place, redirected for month/year, Cooperative, No apparent distress HEENT: Atraumatic, PERRLA, EOMI, - - left hemianopia Oral: - - thrush Neck: Supple, No JVD Lungs: Clear to auscultation, Normal air movement Cardiovascular: Regular rate, Regular Rhythm Abdomen: Bowel Sounds Present, Soft, Non Tender Extremities: No clubbing, No cyanosis, No edema Skin: - - peg intact without surrounding redness or drng Neurological: Cranial nerves II-XII grossly intact - excpet left hemianopia, Facial Droop - left-mild, Slurred Speech - mild Psych/Mental Status: Normal Affect, Appropriate, - - a/o x2 slef and place, redirects easily, cooperative and pleasant Current Medications Acetaminophen (Tylenol Liquid) 1,000 mg GT TID [facility] Last Admin: 06/26/19 05:26 Dose: 1,000 mg Documented by: Apixaban (Eliquis) 5 mg GT BID [facility] Last Admin: 06/26/19 09:37 Dose: 5 mg Documented by: Atorvastatin Calcium (Lipitor) 40 mg GT QHS [facility] Last Admin: 06/25/19 21:10 Dose: 40 mg Documented by: Bisacodyl (Dulcolax) 10 mg RECTAL .PRN X 1 PRN PRN Reason: Constipation Calamine/Phenol (Calmoseptine Ointment) 1 applic TOPICAL BID [facility]; Protocol Last Admin: 06/26/19 09:38 Dose: 1 applicatio Documented by: Carvedilol (Coreg) 12.5 mg GT Q8 [facility] Last Admin: 06/26/19 05:26 Dose: 12.5 mg Documented by: Duloxetine HCl (Cymbalta) 60 mg PO DAILY [facility] Last Admin: 06/26/19 09:37 Dose: 60 mg Documented by: Enteral Nutritional Formula (Jevity 1.5) 240 ml GT 5X/DAY [facility] Last Admin: 06/26/19 09:37 Dose: 240 ml Documented by: Famotidine (Pepcid) 20 mg GT DAILY [facility] Last Admin: 06/26/19 09:37 Dose: 20 mg Documented by: Flecainide Acetate (Tambocor) 100 mg GT BID [facility] Last Admin: 06/26/19 09:37 Dose: 100 mg Documented by: Hydrochlorothiazide (Hctz) 25 mg GT DAILY [facility] Last Admin: 06/26/19 09:37 Dose: 25 mg Documented by: Lactobacillus Acidophilus (Acidophilus) 1 tablet GT BID [facility] Last Admin: 06/26/19 09:37 Dose: 1 tablet Documented by: Latanoprost (Xalatan Opthalmic) 1 drop EACH EYE DAILY@2200 [facility] Last Admin: 06/25/19 21:11 Dose: 1 drop Documented by: Loperamide HCl (Imodium) 2 mg PO Q4H PRN PRN PRN Reason: DIARRHEA/LOOSE STOOLS Last Admin: 06/25/19 14:31 Dose: 2 mg Documented by: Losartan Potassium (Cozaar) 100 mg GT DAILY [facility] Last Admin: 06/26/19 09:37 Dose: 100 mg Documented by: Magnesium Hydroxide (Milk Of Magnesia) 30 ml PO .PRN X 1 PRN PRN Reason: Constipation Nystatin (Nystatin) 500,000 unit PO 4X/DAY [facility] Last Admin: 06/26/19 09:37 Dose: 500,000 unit Documented by: Potassium Chloride (Potassium Chl Soln) 20 meq GT DAILY [facility] Last Admin: 06/26/19 09:37 Dose: 20 meq Documented by: Quetiapine Fumarate (Seroquel) 25 mg GT QHS [facility] Last Admin: 06/25/19 21:10 Dose: 25 mg Documented by: Sodium Chloride () 5 - 15 ml IV UD PRN PRN Reason: SALINE FLUSH Last Admin: 06/19/19 06:13 Dose: 10 ml Documented by: Medical Necessity - Tobacco Use Smoking Status: Never smoker Tobacco Use: Non-smoker Assessment/Plan All Active Problems (Last Updated 06/12/19 @ 14:09 by Kathi Shields) CVA (cerebral vascular accident) (Acute 05/2019) Acute CVA (cerebrovascular accident) (Resolved) Atrial fibrillation with RVR (Resolved) Dehydration (Resolved) Fecal occult blood test positive (Resolved) Heme + stool (Resolved) Hypokalemia (Resolved) Iron deficiency anemia due to chronic blood loss (Resolved) Junctional bradycardia (Resolved) Left facial numbness (Resolved) Migraine (Resolved) Paresthesias in left hand (Resolved) Subtherapeutic international normalized ratio (INR) (Resolved) Supratherapeutic INR (Resolved) The patient is a 79 year old F with PMH of pulmonary HTN, HLD, CAD, DM type II, A-fib with RVR, pacemaker, RUDY, anxiety and depression admitted to [facility] on 06/06/2019 for debility secondary to right MCA post thrombectomy, for 3 hours of therapy daily with a goal of returning home at or near her prior level of independence. She presented to [facility] ER on 05/23/2019 due to patient was found laying on the ground in her garage with left-sided deficits. Pressure was 161/90 with heart rate of 60. NIH was 20. CT of brain suggestive of thrombus in the right MCA and an early infarct in the right MCA territory. CTA head and neck with contrast impression right MCA occlusion. No TPA and patient was transferred to [facility]. On 05/23/19, neurosurgeon Dr. Doll formed the right MCA thrombectomy, due to right ID occlusion. Postprocedural right ICA arteriogram demonstrated TICI?2b revascularization. CT of head without contrast on 06/04/2019 right MCA territory infarct with decrease edema noted in resolution of previously noted mass-effect of the right lateral ventricle and resolution of previously noted midline shift. Scattered hemorrhage within the infarct is less well seen in particular the right basal ganglia hemorrhage is less tense. No new hemorrhage is identified.. Unable to obtain MRI due to pacemaker. TTE done which showed ejection fraction 65 to 70% and RVSP 41-45 mmHg. LDL 116, HgbA1c 6.5%. Prior to hospitalization patient was on Xarelto 15 mg daily for A. fib, currently has been stopped. Patient lives with niece in a two-story house with first-floor set up, 2 steps to enter. Patient was independent with all ADLs, mobility, and driving prior to hospitalization. Plan - PT for mobility - OT for ADLs - ST for evaluation - Right MCA infarct post thrombectomy on statin, asa, antihypertensives rRepeat CT of brain on 06/22/19 showed expected evolution of right MCA infarct, without midline shift or hemorrhage. - Pulmonary HTN on valsartan and coreg hold if SBP <130 - A-fib with RVR on flecainide xeralto discontinued - DM type II on humalog S.C., accuchecks ac/hs, HgbA1c 6.5% - CAD on asa - HLD on lipitor LDL 116 - RUDY stable 06/07/19 H/H 33.8/10.9 - Anxiety/depression on cymbalta - Insomnia/visual hallucinations on seroquel - Dysphagia failed MBS on 06/13/19 peg placement- on jevity and sterile water flushes, sher water protocol, daily weight and I/O - Hypokalemia on potassium 06/17 K+ 3.4 recheck bmp - Diarrhea probably secondary to Jevity- resolved Imodium prn, acidophilus jevity adjusted decreased to 5 x/day - Aspiration pneumonia on zosyn completed - Thrush on nystatin paint on tongue - GI/DVT prophylaxis pepcid/lovenox, knee high nataly hose - Medical management per hospitalist-consult - Analgesics as needed - Bowel protocol - F/U neurosurgeon Dr. Harrison, PCP, neurology, cardiology
[2019-06-26 14:07] LABS: Anion Gap 4 (5-15); BUN 29 mg/dL (7-18); BUN/Creat Ratio 30.2 RATIO (10-20); Calcium,Total 9.7 mg/dL (8.5-10.1); Chloride 99 mmol/L (98-107); Creatinine, Serum 0.96 mg/dL (0.55-1.02); EST Glomerular Filtration Rate 60 mL/min (>60); Est Glom Filt Rate - Afr Amer 72 mL/min (>60); Estimated Creatinine Clearance 46.97 ml/min; Glucose 110 mg/dL (74-106); Potassium 4.2 mmol/L (3.5-5.1); Sodium Level 139 mmol/L (136-145)
[2019-06-26 14:27] VITALS: BMI 23.8
[2019-06-26 14:43] VITALS: BP 143/79; PULSE 61
[2019-06-26] MEDS: Latanoprost 0.005% 1 Bottle 1 DRP EACH EYE (20:53)
[2019-06-26] MEDS: Atorvastatin Calcium 40 MG Tablet GT (20:54)
[2019-06-26] MEDS: QUEtiapine 25 MG Tablet GT (20:54)
[2019-06-26 21:00] VITALS: BMI 23.8
[2019-06-26 21:05] VITALS: BP 157/91; PULSE 60; RESP 16; TEMP 36.7; O2SAT 97
[2019-06-26] MEDS: Loperamide 2 MG Capsule PO (21:06)
[2019-06-27 05:03] VITALS: BP 147/91; PULSE 63; RESP 16; TEMP 36.4; O2SAT 97
[2019-06-27] MEDS: Acetaminophen 650 MG/20 ML UDC 1000 MG GT ×3 (05:08→20:09)
[2019-06-27] MEDS: Jevity 1.5. 1,000 ML Bottle 240 ML GT ×5 (05:08→20:12)
[2019-06-27] MEDS: Carvedilol 12.5 MG Tablet GT ×3 (05:08→20:11)
[2019-06-27 07:08] VITALS: BP 147/91; PULSE 63; RESP 16; TEMP 36.4; O2SAT 97
--- NOTE | 2019-06-27 09:18 | PN.NEURO_ITS ---
Subjective: Per nursing, patient slept well last night. Patient up in chair, awake and alert. Patient working with therapy and tolerating at this time. - Physical Exam Vitals/I&O's: Vital Signs Temp Pulse Resp BP Pulse Ox 97.6 F L 63 16 147/91 H 97 06/27/19 07:08 06/27/19 07:08 06/27/19 07:08 06/27/19 07:08 06/27/19 07:08 Oxygen Delivery Method Room Air Weight: 63.9 kg Body Mass Index (BMI) 23.8 Finger Stick Blood Glucose 143 Intake and Output for Last 24 Hours 06/25/19 06/26/19 06/27/19 23:59 23:59 23:59 Intake Total 2700 / 2700 1950 / 1950 390 / 390 Output Total 700 / 700 1150 / 1150 300 / 300 Balance 1999 800 / 800 90 / 90 General: Alert, Cooperative, No apparent distress, - - oriented to self and name, redirected to year HEENT: Atraumatic, PERRLA, EOMI, - - left hemianopia Oral: - - thrush Lungs: Clear to auscultation, Normal air movement Cardiovascular: Regular rate, Regular Rhythm Abdomen: Bowel Sounds Present, Soft, Non Tender Extremities: No clubbing, No cyanosis, No edema Skin: - - peg intact, without redness or drng Neurological: Cranial nerves II-XII grossly intact - except left hemianopia, Deep Tendon Reflexes 2+/4 and Symmetrical, Facial Droop - mild left, Slurred Speech - mild Psych/Mental Status: Normal Affect, Appropriate, - - A/O x2 self and place, redirects easily, cooperative and pleasant Laboratory Results 06/26/19 13:40: Sodium 139, Potassium 4.2, Chloride 99, Carbon Dioxide 36.0 H, Anion Gap 4 L, BUN 29 H, Creatinine 0.96, Estim Creat Clear Calc 46.97, Est GFR (MDRD) Af Amer 72, Est GFR (MDRD) Non-Af 60, BUN/Creatinine Ratio 30.2 H, Glucose 110 H, Calcium 9.7 Current Medications Acetaminophen (Tylenol Liquid) 1,000 mg GT TID [facility] Last Admin: 06/27/19 05:08 Dose: 1,000 mg Documented by: Apixaban (Eliquis) 5 mg GT BID [facility] Last Admin: 06/26/19 20:55 Dose: 5 mg Documented by: Atorvastatin Calcium (Lipitor) 40 mg GT QHS [facility] Last Admin: 06/26/19 20:54 Dose: 40 mg Documented by: Bisacodyl (Dulcolax) 10 mg RECTAL .PRN X 1 PRN PRN Reason: Constipation Calamine/Phenol (Calmoseptine Ointment) 1 applic TOPICAL BID [facility]; Protocol Last Admin: 06/26/19 20:54 Dose: 1 applicatio Documented by: Carvedilol (Coreg) 12.5 mg GT Q8 [facility] Last Admin: 06/27/19 05:08 Dose: 12.5 mg Documented by: Duloxetine HCl (Cymbalta) 60 mg PO DAILY [facility] Last Admin: 06/26/19 09:37 Dose: 60 mg Documented by: Enteral Nutritional Formula (Jevity 1.5) 240 ml GT 5X/DAY [facility] Last Admin: 06/27/19 05:08 Dose: 240 ml Documented by: Famotidine (Pepcid) 20 mg GT DAILY [facility] Last Admin: 06/26/19 09:37 Dose: 20 mg Documented by: Flecainide Acetate (Tambocor) 100 mg GT BID [facility] Last Admin: 06/26/19 20:54 Dose: 100 mg Documented by: Hydrochlorothiazide (Hctz) 25 mg GT DAILY [facility] Last Admin: 06/26/19 09:37 Dose: 25 mg Documented by: Lactobacillus Acidophilus (Acidophilus) 1 tablet GT BID [facility] Last Admin: 06/26/19 20:55 Dose: 1 tablet Documented by: Latanoprost (Xalatan Opthalmic) 1 drop EACH EYE DAILY@2200 [facility] Last Admin: 06/26/19 20:53 Dose: 1 drop Documented by: Loperamide HCl (Imodium) 2 mg PO Q4H PRN PRN PRN Reason: DIARRHEA/LOOSE STOOLS Last Admin: 06/26/19 21:06 Dose: 2 mg Documented by: Losartan Potassium (Cozaar) 100 mg GT DAILY [facility] Last Admin: 06/26/19 09:37 Dose: 100 mg Documented by: Magnesium Hydroxide (Milk Of Magnesia) 30 ml PO .PRN X 1 PRN PRN Reason: Constipation Nystatin (Nystatin) 500,000 unit PO 4X/DAY [facility] Last Admin: 06/26/19 20:53 Dose: 500,000 unit Documented by: Potassium Chloride (Potassium Chl Soln) 20 meq GT DAILY [facility] Last Admin: 06/26/19 09:37 Dose: 20 meq Documented by: Quetiapine Fumarate (Seroquel) 25 mg GT DAILY@1999 [facility] Sodium Chloride () 5 - 15 ml IV UD PRN PRN Reason: SALINE FLUSH Last Admin: 06/19/19 06:13 Dose: 10 ml Documented by: STROKE Vital Signs/Narrative: Vital Signs Temp Pulse Resp BP Pulse Ox 06/27/19 07:08 97.6 F L 63 16 147/91 H 97 Medical Necessity - Tobacco Use Smoking Status: Never smoker Tobacco Use: Non-smoker Assessment/Plan All Active Problems (Last Updated 06/12/19 @ 14:09 by Kathi Shields) CVA (cerebral vascular accident) (Acute 05/2019) Acute CVA (cerebrovascular accident) (Resolved) Atrial fibrillation with RVR (Resolved) Dehydration (Resolved) Fecal occult blood test positive (Resolved) Heme + stool (Resolved) Hypokalemia (Resolved) Iron deficiency anemia due to chronic blood loss (Resolved) Junctional bradycardia (Resolved) Left facial numbness (Resolved) Migraine (Resolved) Paresthesias in left hand (Resolved) Subtherapeutic international normalized ratio (INR) (Resolved) Supratherapeutic INR (Resolved) The patient is a 79 year old F with PMH of pulmonary HTN, HLD, CAD, DM type II, A-fib with RVR, pacemaker, RUDY, anxiety and depression admitted to [facility] on 06/06/2019 for debility secondary to right MCA post thrombectomy, for 3 hours of therapy daily with a goal of returning home at or near her prior level of independence. She presented to [facility] ER on 05/23/2019 due to patient was found laying on the ground in her garage with left-sided deficits. Pressure was 161/90 with heart rate of 60. NIH was 20. CT of brain suggestive of thrombus in the right MCA and an early infarct in the right MCA territory. CTA head and neck with contrast impression right MCA occlusion. No TPA and patient was transferred to [facility]. On 05/23/19, neurosurgeon Dr. Doll formed the right MCA thrombectomy, due to right [place] occlusion. Postprocedural right ICA arteriogram demonstrated TICI?2b revascularization. CT of head without contrast on 06/04/2019 right MCA territory infarct with decrease edema noted in resolution of previously noted mass-effect of the right lateral ventricle and resolution of previously noted midline shift. Scattered hemorrhage within the infarct is less well seen in particular the right basal ganglia hemorrhage is less tense. No new hemorrhage is identified.. Unable to obtain MRI due to pacemaker. TTE done which showed ejection fraction 65 to 70% and RVSP 41-45 mmHg. LDL 116, HgbA1c 6.5%. Prior to hospitalization patient was on Xarelto 15 mg daily for A. fib, currently has been stopped. Patient lives with niece in a two-story house with first-floor set up, 2 steps to enter. Patient was independent with all ADLs, mobility, and driving prior to hospitalization. Plan - PT for mobility - OT for ADLs - ST for evaluation - Right MCA infarct post thrombectomy on statin, asa, antihypertensives r Repeat CT of brain on 06/22/19 showed expected evolution of right MCA infarct, without midline shift or hemorrhage. - Pulmonary HTN on valsartan and coreg hold if SBP <130 - A-fib with RVR on flecainide xeralto discontinued - DM type II on humalog S.C., accuchecks ac/hs, HgbA1c 6.5% - CAD on asa - HLD on lipitor LDL 116 - RUDY stable 06/07/19 H/H 33.8/10.9 - Anxiety/depression on cymbalta - Insomnia/visual hallucinations on seroquel - Dysphagia failed MBS on 06/13/19 peg placement- on jevity and sterile water flushes, sher water protocol, daily weight and I/O - Hypokalemia on potassium 06/26 K+ 4.2 - resolved - Diarrhea probably secondary to Jevity- resolved Imodium prn, acidophilus jevity adjusted decreased to 5 x/day - Aspiration pneumonia on zosyn completed - Thrush on nystatin paint on tongue - GI/DVT prophylaxis pepcid/lovenox, knee high nataly hose - Medical management per hospitalist-consult - Analgesics as needed - Bowel protocol - F/U neurosurgeon Dr. Harrison, PCP, neurology, cardiology
[2019-06-27] MEDS: Flecainide 100 MG Tablet GT ×2 (10:00→20:11)
[2019-06-27] MEDS: Famotidine 20 MG Tablet GT (10:00)
[2019-06-27] MEDS: NYSTATIN 500,000 UNIT/5 ML UDC 500000 UNIT PO ×4 (10:00→20:10)
[2019-06-27] MEDS: APIXABAN 5 MG TABLET GT ×2 (10:00→20:11)
[2019-06-27] MEDS: hydroCHLOROthiazide 25 MG Tablet GT (10:01)
[2019-06-27] MEDS: DULoxetine Hcl 60 MG Capsule PO (10:01)
[2019-06-27] MEDS: Menthol/Lanolin/Calamine/Znox 113 GM Tube 1 APPLIC TOPICAL ×2 (10:01→20:35)
[2019-06-27] MEDS: Losartan Potassium 100 MG Tablet GT (10:01)
[2019-06-27 15:15] VITALS: BMI 23.8
[2019-06-27 19:37] VITALS: BP 153/67; PULSE 61; RESP 14; TEMP 37; O2SAT 96
[2019-06-27] MEDS: QUEtiapine 25 MG Tablet GT (20:11)
[2019-06-27] MEDS: Atorvastatin Calcium 40 MG Tablet GT (20:11)
[2019-06-27] MEDS: Latanoprost 0.005% 1 Bottle 1 DRP EACH EYE (20:12)
[2019-06-27 22:02] VITALS: BMI 23.8
[2019-06-28 05:49] VITALS: BP 174/99; PULSE 62; RESP 16; TEMP 36.8; O2SAT 95
[2019-06-28] MEDS: Carvedilol 12.5 MG Tablet GT ×3 (05:56→21:16)
[2019-06-28] MEDS: Acetaminophen 650 MG/20 ML UDC 1000 MG GT ×3 (05:57→21:18)
[2019-06-28] MEDS: Jevity 1.5. 1,000 ML Bottle 240 ML GT ×5 (05:59→21:16)
[2019-06-28] MEDS: Famotidine 20 MG Tablet GT (08:52)
[2019-06-28] MEDS: Losartan Potassium 100 MG Tablet GT (08:53)
[2019-06-28] MEDS: APIXABAN 5 MG TABLET GT ×2 (08:53→21:18)
[2019-06-28] MEDS: DULoxetine Hcl 60 MG Capsule PO (08:53)
[2019-06-28] MEDS: Flecainide 100 MG Tablet GT ×2 (08:53→21:16)
[2019-06-28] MEDS: NYSTATIN 500,000 UNIT/5 ML UDC 500000 UNIT PO (08:53)
[2019-06-28] MEDS: hydroCHLOROthiazide 25 MG Tablet GT (08:53)
[2019-06-28] MEDS: Menthol/Lanolin/Calamine/Znox 113 GM Tube 1 APPLIC TOPICAL ×2 (08:55→21:16)
[2019-06-28] MEDS: Loperamide 2 MG Capsule PO (09:01)
[2019-06-28 09:21] VITALS: BP 149/79; PULSE 61; RESP 18; TEMP 36.6; O2SAT 96
--- NOTE | 2019-06-28 10:22 | PN.NEURO_ITS ---
Subjective: Per nursing, continue to sleep well at night. continues to tolerate therapies. - Physical Exam Vitals/I&O's: Vital Signs Temp Pulse Resp BP Pulse Ox 98 F 61 18 149/79 H 96 06/28/19 09:21 06/28/19 09:21 06/28/19 09:21 06/28/19 09:21 06/28/19 09:21 Oxygen Delivery Method Room Air Weight: 63.6 kg Body Mass Index (BMI) 23.8 Finger Stick Blood Glucose 143 Intake and Output for Last 24 Hours 06/26/19 06/27/19 06/28/19 23:59 23:59 23:59 Intake Total 1950 / 1950 2730 / 2730 Output Total 1150 / 1150 300 / 300 350 / 350 Balance 800 / 800 2430 / 2430 -350 / -350 General: Alert - self and place, unaware of year/month, Cooperative, No apparent distress HEENT: Atraumatic - left hemianopia, PERRLA, EOMI Neck: Supple, No JVD Lungs: Clear to auscultation, Normal air movement Cardiovascular: Regular rate, Regular Rhythm Abdomen: Bowel Sounds Present, Soft, Non Tender Extremities: No clubbing, No cyanosis, No edema Skin: - - peg intact without surrounding redness or drng Neurological: Cranial nerves II-XII grossly intact - left hemianopia, Deep Tendon Reflexes 2+/4 and Symmetrical, Facial Droop - mild left, Slurred Speech - mild, - - motor strength RUE/RLE 5/5, LUE 0/5, LLE 3/5 Psych/Mental Status: Normal Affect, Appropriate, - - A/O x2 self and place, redirects easily, cooperative and pleasant Current Medications Acetaminophen (Tylenol Liquid) 1,000 mg GT TID [facility] Last Admin: 06/28/19 05:57 Dose: 1,000 mg Documented by: Apixaban (Eliquis) 5 mg GT BID [facility] Last Admin: 06/28/19 08:53 Dose: 5 mg Documented by: Atorvastatin Calcium (Lipitor) 40 mg GT QHS [facility] Last Admin: 06/27/19 20:11 Dose: 40 mg Documented by: Bisacodyl (Dulcolax) 10 mg RECTAL .PRN X 1 PRN PRN Reason: Constipation Calamine/Phenol (Calmoseptine Ointment) 1 applic TOPICAL BID [facility]; Protocol Last Admin: 06/28/19 08:55 Dose: 1 applicatio Documented by: Carvedilol (Coreg) 12.5 mg GT Q8 [facility] Last Admin: 06/28/19 05:56 Dose: 12.5 mg Documented by: Duloxetine HCl (Cymbalta) 60 mg PO DAILY [facility] Last Admin: 06/28/19 08:53 Dose: 60 mg Documented by: Enteral Nutritional Formula (Jevity 1.5) 240 ml GT 5X/DAY [facility] Last Admin: 06/28/19 08:55 Dose: 240 ml Documented by: Famotidine (Pepcid) 20 mg GT DAILY [facility] Last Admin: 06/28/19 08:52 Dose: 20 mg Documented by: Flecainide Acetate (Tambocor) 100 mg GT BID [facility] Last Admin: 06/28/19 08:53 Dose: 100 mg Documented by: Hydrochlorothiazide (Hctz) 25 mg GT DAILY [facility] Last Admin: 06/28/19 08:53 Dose: 25 mg Documented by: Lactobacillus Acidophilus (Acidophilus) 1 tablet GT BID [facility] Last Admin: 06/28/19 08:53 Dose: 1 tablet Documented by: Latanoprost (Xalatan Opthalmic) 1 drop EACH EYE DAILY@2199 [facility] Last Admin: 06/27/19 20:12 Dose: 1 drop Documented by: Loperamide HCl (Imodium) 2 mg PO Q4H PRN PRN PRN Reason: DIARRHEA/LOOSE STOOLS Last Admin: 06/28/19 09:01 Dose: 2 mg Documented by: Losartan Potassium (Cozaar) 100 mg GT DAILY [facility] Last Admin: 06/28/19 08:53 Dose: 100 mg Documented by: Magnesium Hydroxide (Milk Of Magnesia) 30 ml PO .PRN X 1 PRN PRN Reason: Constipation Potassium Chloride (Potassium Chl Soln) 20 meq GT DAILY [facility] Last Admin: 06/28/19 08:52 Dose: 20 meq Documented by: Quetiapine Fumarate (Seroquel) 25 mg GT DAILY@1999 [facility] Last Admin: 06/27/19 20:11 Dose: 25 mg Documented by: Sodium Chloride () 5 - 15 ml IV UD PRN PRN Reason: SALINE FLUSH Last Admin: 06/19/19 06:13 Dose: 10 ml Documented by: STROKE Vital Signs/Narrative: Vital Signs Temp Pulse Resp BP Pulse Ox 06/28/19 09:21 98 F 61 18 149/79 H 96 Medical Necessity - Tobacco Use Smoking Status: Never smoker Tobacco Use: Non-smoker Assessment/Plan All Active Problems (Last Updated 06/12/19 @ 14:09 by Kathi Shields) CVA (cerebral vascular accident) (Acute 05/2019) Acute CVA (cerebrovascular accident) (Resolved) Atrial fibrillation with RVR (Resolved) Dehydration (Resolved) Fecal occult blood test positive (Resolved) Heme + stool (Resolved) Hypokalemia (Resolved) Iron deficiency anemia due to chronic blood loss (Resolved) Junctional bradycardia (Resolved) Left facial numbness (Resolved) Migraine (Resolved) Paresthesias in left hand (Resolved) Subtherapeutic international normalized ratio (INR) (Resolved) Supratherapeutic INR (Resolved) The patient is a 79 year old F with PMH of pulmonary HTN, HLD, CAD, DM type II, A-fib with RVR, pacemaker, RUDY, anxiety and depression admitted to [facility] on 06/06/2019 for debility secondary to right MCA post thrombectomy, for 3 hours of therapy daily with a goal of returning home at or near her prior level of independence. She presented to [facility] ER on 05/23/2019 due to patient was found laying on the ground in her garage with left-sided deficits. Pressure was 161/90 with heart rate of 60. NIH was 20. CT of brain lay ggestive of thrombus in the right MCA and an early infarct in the right MCA territory. CTA head and neck with contrast impression right MCA occlusion. No TPA and patient was transferred to [facility]. On 05/23/19, neurosurgeon Dr. Doll formed the right MCA thrombectomy, due to right [place] occlusion. Postprocedural right ICA arteriogram demonstrated TICI?2b revascularization. CT of head without contrast on 06/04/2019 right MCA territory infarct with decrease edema noted in resolution of previously noted mass-effect of the right lateral ventricle and resolution of previously noted midline shift. Scattered hemorrhage within the infarct is less well seen in particular the right basal ganglia hemorrhage is less tense. No new hemorrhage is identified.. Unable to obtain MRI due to pacemaker. TTE done which showed ejection fraction 65 to 70% and RVSP 41-45 mmHg. LDL 116, HgbA1c 6.5%. Prior to hospitalization patient was on Xarelto 15 mg daily for A. fib, currently has been stopped. Patient lives with niece in a two-story house with first-floor set up, 2 steps to enter. Patient was independent with all ADLs, mobility, and driving prior to hospitalization. Plan - PT for mobility - OT for ADLs - ST for evaluation - Right MCA infarct post thrombectomy on statin, asa, antihypertensives r Repeat CT of brain on 06/22/19 showed expected evolution of right MCA infarct, without midline shift or hemorrhage. - Pulmonary HTN on valsartan and coreg hold if SBP <130 - A-fib with RVR on flecainide xeralto discontinued - DM type II on humalog S.C., accuchecks ac/hs, HgbA1c 6.5% - CAD on asa - HLD on lipitor LDL 116 - RUDY stable 06/07/19 H/H 33.8/10.9 - Anxiety/depression on cymbalta - Insomnia/visual hallucinations on seroquel - Dysphagia failed MBS on 06/13/19 peg placement- on jevity and sterile water flushes, sher water protocol, daily weight and I/O - Hypokalemia on potassium 06/26 K+ 4.2 - resolved - Diarrhea probably secondary to Jevity- resolved Imodium prn, acidophilus jevity adjusted decreased to 5 x/day - Aspiration pneumonia on zosyn completed - Thrush on nystatin paint on tongue - GI/DVT prophylaxis pepcid/lovenox, knee high nataly hose - Medical management per hospitalist-consult - Analgesics as needed - Bowel protocol - F/U neurosurgeon Dr. Harrison, PCP, neurology, cardiology
--- NOTE | 2019-06-28 12:31 | PCM.PN.HOSP ---
Subjective: Follow-up acute CVA Patient seen currently participating in therapy. Objective: GENERAL: Significant left-sided neglect HEENT: Oral thrush EYES; Anicteric, Normal Conjunctiva NECK; supple, normal thyroid, RESPIRATORY: Diminished to auscultation CARDIOVASCULAR: Irregular S1 S2, GI: soft, non-tender, normoactive bowel sounds, : No Renal angle tenderness; EXTREMITIES: No edema, no clubbing, NEURO: Awake; left sided weakness SKIN: No Rash PSYCH;flat affect Vitals/I&O's: Vital Signs Temp Pulse Resp BP Pulse Ox 98 F 61 18 149/79 H 96 06/28/19 09:21 06/28/19 09:21 06/28/19 09:21 06/28/19 09:21 06/28/19 09:21 Oxygen Delivery Method Room Air Weight: 63.6 kg Body Mass Index (BMI) 23.8 Finger Stick Blood Glucose 143 Intake and Output for Last 24 Hours 06/26/19 06/27/19 06/28/19 23:59 23:59 23:59 Intake Total 1950 / 1950 2730 / 2730 390 / 390 Output Total 1150 / 1150 300 / 300 350 / 350 Balance 800 / 800 2430 / 2430 40 / 40 Current Medications Acetaminophen (Tylenol Liquid) 1,000 mg GT TID [facility] Last Admin: 06/28/19 05:57 Dose: 1,000 mg Documented by: Apixaban (Eliquis) 5 mg GT BID [facility] Last Admin: 06/28/19 08:53 Dose: 5 mg Documented by: Atorvastatin Calcium (Lipitor) 40 mg GT QHS [facility] Last Admin: 06/27/19 20:11 Dose: 40 mg Documented by: Bisacodyl (Dulcolax) 10 mg RECTAL .PRN X 1 PRN PRN Reason: Constipation Calamine/Phenol (Calmoseptine Ointment) 1 applic TOPICAL BID [facility]; Protocol Last Admin: 06/28/19 08:55 Dose: 1 applicatio Documented by: Carvedilol (Coreg) 12.5 mg GT Q8 [facility] Last Admin: 06/28/19 05:56 Dose: 12.5 mg Documented by: Duloxetine HCl (Cymbalta) 60 mg PO DAILY [facility] Last Admin: 06/28/19 08:53 Dose: 60 mg Documented by: Enteral Nutritional Formula (Jevity 1.5) 240 ml GT 5X/DAY [facility] Last Admin: 06/28/19 08:55 Dose: 240 ml Documented by: Famotidine (Pepcid) 20 mg GT DAILY [facility] Last Admin: 06/28/19 08:52 Dose: 20 mg Documented by: Flecainide Acetate (Tambocor) 100 mg GT BID [facility] Last Admin: 06/28/19 08:53 Dose: 100 mg Documented by: Hydrochlorothiazide (Hctz) 25 mg GT DAILY [facility] Last Admin: 06/28/19 08:53 Dose: 25 mg Documented by: Lactobacillus Acidophilus (Acidophilus) 1 tablet GT BID [facility] Last Admin: 06/28/19 08:53 Dose: 1 tablet Documented by: Latanoprost (Xalatan Opthalmic) 1 drop EACH EYE DAILY@2199 [facility] Last Admin: 06/27/19 20:12 Dose: 1 drop Documented by: Loperamide HCl (Imodium) 2 mg PO Q4H PRN PRN PRN Reason: DIARRHEA/LOOSE STOOLS Last Admin: 06/28/19 09:01 Dose: 2 mg Documented by: Losartan Potassium (Cozaar) 100 mg GT DAILY [facility] Last Admin: 06/28/19 08:53 Dose: 100 mg Documented by: Magnesium Hydroxide (Milk Of Magnesia) 30 ml PO .PRN X 1 PRN PRN Reason: Constipation Potassium Chloride (Potassium Chl Soln) 20 meq GT DAILY [facility] Last Admin: 06/28/19 08:52 Dose: 20 meq Documented by: Quetiapine Fumarate (Seroquel) 25 mg GT DAILY@1999 [facility] Last Admin: 06/27/19 20:11 Dose: 25 mg Documented by: Sodium Chloride () 5 - 15 ml IV UD PRN PRN Reason: SALINE FLUSH Last Admin: 06/19/19 06:13 Dose: 10 ml Documented by: STROKE Vital Signs/Narrative: Vital Signs Temp Pulse Resp BP Pulse Ox 06/28/19 09:21 98 F 61 18 149/79 H 96 Medical Necessity - Tobacco Use Smoking Status: Never smoker Tobacco Use: Non-smoker Assessment/Plan All Active Problems (Last Updated 06/12/19 @ 14:09 by Kathi Shields) CVA (cerebral vascular accident) (Acute 05/2019) Acute CVA (cerebrovascular accident) (Resolved) Atrial fibrillation with RVR (Resolved) Dehydration (Resolved) Fecal occult blood test positive (Resolved) Heme + stool (Resolved) Hypokalemia (Resolved) Iron deficiency anemia due to chronic blood loss (Resolved) Junctional bradycardia (Resolved) Left facial numbness (Resolved) Migraine (Resolved) Paresthesias in left hand (Resolved) Subtherapeutic international normalized ratio (INR) (Resolved) Supratherapeutic INR (Resolved) Patient is a 79-year-old lady admitted to the inpatient rehab unit with significant debility secondary to acute right MCA stroke with residual left-sided paralysis 1. Acute right MCA ischemic stroke with residual left-sided paralysis. Patient underwent right ICA thrombectomy subsequently transferred to the rehab unit at the [facility] ~06/12/2019: Patient scheduled to undergo PEG tube placement after failing speech and swallow eval ?06/14/2019 patient underwent PEG tube placement the day prior subsequently started on tube feeding ?06/24/2019 patient seen has significant left-sided neglect. ?06/26/2019: Patient seen much more awake compared to the prior day ?06/28/2019: Tolerating physical therapy well 2. Did aspiration pneumonia Completed treatment with Zosyn 3. Oral candidiasis ~ Patient was treated with Diflucan 200 mg x 1 and subsequently 100 mg daily for total of 7 days 4. Hypertension ~ blood pressure controlled, home medications continued with dose adjustment as needed 5. Paroxysmal atrial fibrillation Patient is on flecainide was on Xarelto which is currently being held. Her post thrombectomy. Was apparently complicated by acute cytotoxic cerebral edema with brain compression 6. Hypokalemia corrected per protocol 7. Diabetes mellitus type II ~Diet controlled, placed on Accu-Cheks a.c. and at bedtime and covered with sliding scale insulin 8. Depression with anxiety patient is on Seroquel as well as Ativan as needed 9. DVT prophylaxis SC Lovenox Code Visit Inpatient E&M: 67551 Subs Hosp L2
[2019-06-28 13:26] VITALS: BMI 23.8
[2019-06-28 14:35] VITALS: BP 138/88; PULSE 78
[2019-06-28 18:54] VITALS: BP 158/85; PULSE 58; RESP 20; TEMP 36.6; O2SAT 97
[2019-06-28] MEDS: Atorvastatin Calcium 40 MG Tablet GT (21:15)
[2019-06-28] MEDS: Latanoprost 0.005% 1 Bottle 1 DRP EACH EYE (21:15)
[2019-06-28] MEDS: QUEtiapine 25 MG Tablet GT (21:16)
[2019-06-28 21:20] VITALS: BP 160/93; PULSE 61
[2019-06-28 22:05] VITALS: BMI 23.8
[2019-06-29] MEDS: Acetaminophen 650 MG/20 ML UDC 1000 MG GT ×3 (06:39→19:55)
[2019-06-29] MEDS: Carvedilol 12.5 MG Tablet GT ×3 (06:39→19:57)
[2019-06-29] MEDS: Jevity 1.5. 1,000 ML Bottle 240 ML GT ×5 (06:41→19:57)
[2019-06-29 07:13] VITALS: BP 139/77; PULSE 61; RESP 18; TEMP 36.5; O2SAT 95
[2019-06-29] MEDS: DULoxetine Hcl 60 MG Capsule PO (09:43)
[2019-06-29] MEDS: APIXABAN 5 MG TABLET GT ×2 (09:43→19:57)
[2019-06-29] MEDS: Flecainide 100 MG Tablet GT ×2 (09:43→19:55)
[2019-06-29] MEDS: Losartan Potassium 100 MG Tablet GT (09:43)
[2019-06-29] MEDS: Famotidine 20 MG Tablet GT (09:44)
[2019-06-29] MEDS: Menthol/Lanolin/Calamine/Znox 113 GM Tube 1 APPLIC TOPICAL ×2 (09:44→19:57)
[2019-06-29] MEDS: hydroCHLOROthiazide 25 MG Tablet GT (09:45)
[2019-06-29 10:18] VITALS: BMI 23.8
[2019-06-29 19:12] VITALS: BP 123/57; PULSE 64; RESP 18; TEMP 36.5; O2SAT 95
[2019-06-29] MEDS: Latanoprost 0.005% 1 Bottle 1 DRP EACH EYE (19:54)
[2019-06-29] MEDS: Atorvastatin Calcium 40 MG Tablet GT (19:56)
[2019-06-29] MEDS: QUEtiapine 25 MG Tablet GT (19:58)
[2019-06-29 20:18] VITALS: BMI 23.8
[2019-06-30] MEDS: Acetaminophen 650 MG/20 ML UDC 1000 MG GT ×3 (06:02→21:08)
[2019-06-30] MEDS: Carvedilol 12.5 MG Tablet GT ×3 (06:05→20:46)
[2019-06-30] MEDS: Jevity 1.5. 1,000 ML Bottle 240 ML GT ×5 (06:05→20:50)
[2019-06-30 07:00] VITALS: BP 135/80; PULSE 64; RESP 16; TEMP 36.5; O2SAT 94
[2019-06-30] MEDS: APIXABAN 5 MG TABLET GT ×2 (09:39→20:50)
[2019-06-30] MEDS: Famotidine 20 MG Tablet GT (09:39)
[2019-06-30] MEDS: DULoxetine Hcl 60 MG Capsule PO (09:39)
[2019-06-30] MEDS: Losartan Potassium 100 MG Tablet GT (09:39)
[2019-06-30] MEDS: Flecainide 100 MG Tablet GT ×2 (09:39→20:50)
[2019-06-30] MEDS: hydroCHLOROthiazide 25 MG Tablet GT (09:39)
[2019-06-30] MEDS: Menthol/Lanolin/Calamine/Znox 113 GM Tube 1 APPLIC TOPICAL ×2 (09:40→20:49)
--- NOTE | 2019-06-30 10:37 | PCM.PN.HOSP ---
Subjective: Follow-up acute CVA Patient seen resting comfortably per nursing staff no significant changes in condition. Objective: GENERAL: Significant left-sided neglect HEENT: Oral thrush EYES; Anicteric, Normal Conjunctiva NECK; supple, normal thyroid, RESPIRATORY: Diminished to auscultation CARDIOVASCULAR: Irregular S1 S2, GI: soft, non-tender, normoactive bowel sounds, : No Renal angle tenderness; EXTREMITIES: No edema, no clubbing, NEURO: Awake; left sided weakness SKIN: No Rash PSYCH;flat affect Vitals/I&O's: Vital Signs Temp Pulse Resp BP Pulse Ox 97.7 F L 64 16 135/80 H 94 06/30/19 07:00 06/30/19 07:00 06/30/19 07:00 06/30/19 07:00 06/30/19 07:00 Oxygen Delivery Method Room Air Weight: 63.7 kg Body Mass Index (BMI) 23.8 Finger Stick Blood Glucose 143 Intake and Output for Last 24 Hours 06/28/19 06/29/19 06/30/19 23:59 23:59 23:59 Intake Total 2730 / 2730 2830 / 2830 390 / 390 Output Total 1550 / 1550 600 / 600 300 / 300 Balance 1180 / 1180 2230 / 2230 90 / 90 Current Medications Acetaminophen (Tylenol Liquid) 1,000 mg GT TID [facility] Last Admin: 06/30/19 06:02 Dose: 1,000 mg Documented by: Apixaban (Eliquis) 5 mg GT BID [facility] Last Admin: 06/30/19 09:39 Dose: 5 mg Documented by: Atorvastatin Calcium (Lipitor) 40 mg GT QHS [facility] Last Admin: 06/29/19 19:56 Dose: 40 mg Documented by: Bisacodyl (Dulcolax) 10 mg RECTAL .PRN X 1 PRN PRN Reason: Constipation Calamine/Phenol (Calmoseptine Ointment) 1 applic TOPICAL BID [facility]; Protocol Last Admin: 06/30/19 09:40 Dose: 1 applicatio Documented by: Carvedilol (Coreg) 12.5 mg GT Q8 [facility] Last Admin: 06/30/19 06:05 Dose: 12.5 mg Documented by: Duloxetine HCl (Cymbalta) 60 mg PO DAILY [facility] Last Admin: 06/30/19 09:39 Dose: 60 mg Documented by: Enteral Nutritional Formula (Jevity 1.5) 240 ml GT 5X/DAY [facility] Last Admin: 06/30/19 09:40 Dose: 240 ml Documented by: Famotidine (Pepcid) 20 mg GT DAILY [facility] Last Admin: 06/30/19 09:39 Dose: 20 mg Documented by: Flecainide Acetate (Tambocor) 100 mg GT BID [facility] Last Admin: 06/30/19 09:39 Dose: 100 mg Documented by: Hydrochlorothiazide (Hctz) 25 mg GT DAILY [facility] Last Admin: 06/30/19 09:39 Dose: 25 mg Documented by: Lactobacillus Acidophilus (Acidophilus) 1 tablet GT BID [facility] Last Admin: 06/30/19 09:39 Dose: 1 tablet Documented by: Latanoprost (Xalatan Opthalmic) 1 drop EACH EYE DAILY@2199 [facility] Last Admin: 06/29/19 19:54 Dose: 1 drop Documented by: Loperamide HCl (Imodium) 2 mg PO Q4H PRN PRN PRN Reason: DIARRHEA/LOOSE STOOLS Last Admin: 06/28/19 09:01 Dose: 2 mg Documented by: Losartan Potassium (Cozaar) 100 mg GT DAILY [facility] Last Admin: 06/30/19 09:39 Dose: 100 mg Documented by: Magnesium Hydroxide (Milk Of Magnesia) 30 ml PO .PRN X 1 PRN PRN Reason: Constipation Potassium Chloride (Potassium Chl Soln) 20 meq GT DAILY [facility] Last Admin: 06/30/19 09:39 Dose: 20 meq Documented by: Quetiapine Fumarate (Seroquel) 25 mg GT DAILY@1999 [facility] Last Admin: 06/29/19 19:58 Dose: 25 mg Documented by: Sodium Chloride () 5 - 15 ml IV UD PRN PRN Reason: SALINE FLUSH Last Admin: 06/19/19 06:13 Dose: 10 ml Documented by: STROKE Vital Signs/Narrative: Vital Signs Temp Pulse Resp BP Pulse Ox 06/30/19 07:00 97.7 F L 64 16 135/80 H 94 Medical Necessity - Tobacco Use Smoking Status: Never smoker Tobacco Use: Non-smoker Assessment/Plan All Active Problems (Last Updated 06/12/19 @ 14:09 by Kathi Shields) CVA (cerebral vascular accident) (Acute 05/2019) Acute CVA (cerebrovascular accident) (Resolved) Atrial fibrillation with RVR (Resolved) Dehydration (Resolved) Fecal occult blood test positive (Resolved) Heme + stool (Resolved) Hypokalemia (Resolved) Iron deficiency anemia due to chronic blood loss (Resolved) Junctional bradycardia (Resolved) Left facial numbness (Resolved) Migraine (Resolved) Paresthesias in left hand (Resolved) Subtherapeutic international normalized ratio (INR) (Resolved) Supratherapeutic INR (Resolved) Patient is a 79-year-old lady admitted to the inpatient rehab unit with significant debility secondary to acute right MCA stroke with residual left-sided paralysis 1. Acute right MCA ischemic stroke with residual left-sided paralysis. Patient underwent right ICA thrombectomy subsequently transferred to the rehab unit at the [facility] ~06/12/2019: Patient scheduled to undergo PEG tube placement after failing speech and swallow eval ?06/14/2019 patient underwent PEG tube placement the day prior subsequently started on tube feeding ?06/24/2019 patient seen has significant left-sided neglect. ?06/26/2019: Patient seen much more awake compared to the prior day ?06/28/2019: Tolerating physical therapy well 06/30/2019: Seen no significant change in condition plan is for patient to be transferred to a assisted facility given her rather slow progress. 2. Did aspiration pneumonia Completed treatment with Zosyn 3. Oral candidiasis ~ Patient was treated with Diflucan 200 mg x 1 and subsequently 100 mg daily for total of 7 days 4. Hypertension ~ blood pressure controlled, home medications continued with dose adjustment as needed 5. Paroxysmal atrial fibrillation Patient is on flecainide was on Xarelto which is currently being held. Her post thrombectomy. Was apparently complicated by acute cytotoxic cerebral edema with brain compression 6. Hypokalemia corrected per protocol 7. Diabetes mellitus type II ~Diet controlled, placed on Accu-Cheks a.c. and at bedtime and covered with sliding scale insulin 8. Depression with anxiety patient is on Seroquel as well as Ativan as needed 9. DVT prophylaxis SC Lovenox Code Visit Inpatient E&M: 56869 Subs Hosp L2
[2019-06-30 10:58] VITALS: BMI 23.8
[2019-06-30 18:57] VITALS: BP 150/87; PULSE 87; RESP 18; TEMP 36.8; O2SAT 94
[2019-06-30] MEDS: QUEtiapine 25 MG Tablet GT (20:47)
[2019-06-30] MEDS: Atorvastatin Calcium 40 MG Tablet GT (20:50)
[2019-06-30] MEDS: Latanoprost 0.005% 1 Bottle 1 DRP EACH EYE (21:07)
[2019-06-30 21:49] VITALS: BMI 23.8
[2019-06-30 22:00] VITALS: PULSE 87; RESP 18; O2SAT 94
[2019-07-01] MEDS: Carvedilol 12.5 MG Tablet GT ×3 (05:24→20:28)
[2019-07-01] MEDS: Jevity 1.5. 1,000 ML Bottle 240 ML GT ×5 (05:24→20:27)
[2019-07-01] MEDS: Acetaminophen 650 MG/20 ML UDC 1000 MG GT ×3 (05:25→20:26)
[2019-07-01 07:08] VITALS: BP 126/66; PULSE 62; RESP 16; TEMP 36.6; O2SAT 91
--- NOTE | 2019-07-01 09:21 | PCM.PN.NEU ---
Subjective: Team meeting today. Further details per PT/OT/ST notes. All questions answered. Intermittent visual hallucinations of bugs, patient aware not real and not bothersome. Patient slept well last night. - Physical Exam Vitals/I&O's: Vital Signs Temp Pulse Resp BP Pulse Ox 97.8 F 62 16 126/66 H 91 07/01/19 07:08 07/01/19 07:08 07/01/19 07:08 07/01/19 07:08 07/01/19 07:08 Oxygen Delivery Method Room Air Weight: 64.8 kg Body Mass Index (BMI) 23.8 Finger Stick Blood Glucose 143 Intake and Output for Last 24 Hours 06/29/19 06/30/19 07/01/19 23:59 23:59 23:59 Intake Total 2830 / 2830 2880 / 2880 390 / 390 Output Total 600 / 600 600 / 600 300 / 300 Balance 2230 / 2230 2280 / 2280 90 / 90 General: Alert, Oriented x3 - needed cues for year, Cooperative HEENT: Atraumatic, PERRLA, EOMI, - - left hemianopia Oral: - - thrush improving Neck: Supple, No JVD Lungs: Clear to auscultation, Normal air movement Cardiovascular: Regular rate, Regular Rhythm Abdomen: Bowel Sounds Present, Soft, Non Tender Skin: - - peg intact, without surrounding redness or drng Neurological: Cranial nerves II-XII grossly intact - left hemianopia, Deep Tendon Reflexes 2+/4 and Symmetrical, Facial Droop - mild left, Slurred Speech, - - Motor strength RUE/RLE 5/5, LUE 0/5, LLE 3/5 Psych/Mental Status: Normal Affect, Appropriate, Alert and oriented to time, place, person, mood and affect - needed cues for year, cooperative and pleasant Current Medications Acetaminophen (Tylenol Liquid) 1,000 mg GT TID [facility] Last Admin: 07/01/19 05:25 Dose: 1,000 mg Documented by: Apixaban (Eliquis) 5 mg GT BID [facility] Last Admin: 06/30/19 20:50 Dose: 5 mg Documented by: Atorvastatin Calcium (Lipitor) 40 mg GT QHS [facility] Last Admin: 06/30/19 20:50 Dose: 40 mg Documented by: Bisacodyl (Dulcolax) 10 mg RECTAL .PRN X 1 PRN PRN Reason: Constipation Calamine/Phenol (Calmoseptine Ointment) 1 applic TOPICAL BID [facility]; Protocol Last Admin: 06/30/19 20:49 Dose: 1 applicatio Documented by: Carvedilol (Coreg) 12.5 mg GT Q8 [facility] Last Admin: 07/01/19 05:24 Dose: 12.5 mg Documented by: Duloxetine HCl (Cymbalta) 60 mg PO DAILY [facility] Last Admin: 06/30/19 09:39 Dose: 60 mg Documented by: Enteral Nutritional Formula (Jevity 1.5) 240 ml GT 5X/DAY [facility] Last Admin: 07/01/19 05:24 Dose: 240 ml Documented by: Famotidine (Pepcid) 20 mg GT DAILY [facility] Last Admin: 06/30/19 09:39 Dose: 20 mg Documented by: Flecainide Acetate (Tambocor) 100 mg GT BID [facility] Last Admin: 06/30/19 20:50 Dose: 100 mg Documented by: Hydrochlorothiazide (Hctz) 25 mg GT DAILY [facility] Last Admin: 06/30/19 09:39 Dose: 25 mg Documented by: Lactobacillus Acidophilus (Acidophilus) 1 tablet GT BID [facility] Last Admin: 06/30/19 20:49 Dose: 1 tablet Documented by: Latanoprost (Xalatan Opthalmic) 1 drop EACH EYE DAILY@2200 [facility] Last Admin: 06/30/19 21:07 Dose: 1 drop Documented by: Loperamide HCl (Imodium) 2 mg PO Q4H PRN PRN PRN Reason: DIARRHEA/LOOSE STOOLS Last Admin: 06/28/19 09:01 Dose: 2 mg Documented by: Losartan Potassium (Cozaar) 100 mg GT DAILY [facility] Last Admin: 06/30/19 09:39 Dose: 100 mg Documented by: Magnesium Hydroxide (Milk Of Magnesia) 30 ml PO .PRN X 1 PRN PRN Reason: Constipation Potassium Chloride (Potassium Chl Soln) 20 meq GT DAILY [facility] Last Admin: 06/30/19 09:39 Dose: 20 meq Documented by: Quetiapine Fumarate (Seroquel) 25 mg GT DAILY@2000 [facility] Last Admin: 06/30/19 20:47 Dose: 25 mg Documented by: Sodium Chloride () 5 - 15 ml IV UD PRN PRN Reason: SALINE FLUSH Last Admin: 06/19/19 06:13 Dose: 10 ml Documented by: STROKE Vital Signs/Narrative: Vital Signs Temp Pulse Resp BP Pulse Ox 07/01/19 07:08 97.8 F 62 16 126/66 H 91 Medical Necessity - Tobacco Use Smoking Status: Never smoker Tobacco Use: Non-smoker Assessment/Plan All Active Problems (Last Updated 06/12/19 @ 14:09 by Kathi Shields) CVA (cerebral vascular accident) (Acute 05/2019) Acute CVA (cerebrovascular accident) (Resolved) Atrial fibrillation with RVR (Resolved) Dehydration (Resolved) Fecal occult blood test positive (Resolved) Heme + stool (Resolved) Hypokalemia (Resolved) Iron deficiency anemia due to chronic blood loss (Resolved) Junctional bradycardia (Resolved) Left facial numbness (Resolved) Migraine (Resolved) Paresthesias in left hand (Resolved) Subtherapeutic international normalized ratio (INR) (Resolved) Supratherapeutic INR (Resolved) The patient is a 79 year old F with PMH of pulmonary HTN, HLD, CAD, DM type II, A-fib with RVR, pacemaker, RUDY, anxiety and depression admitted to [facility] on 06/06/2019 for debility secondary to right MCA post thrombectomy, for 3 hours of therapy daily with a goal of returning home at or near her prior level of independence. She presented to [facility] ER on 05/23/2019 due to patient was found laying on the ground in her garage with left-sided deficits. Pressure was 161/90 with heart rate of 60. NIH was 20. CT of brain suggestive of thrombus in the right MCA and an early infarct in the right MCA territory. CTA head and neck with contrast impression right MCA occlusion. No TPA and patient was transferred to [facility]. On 05/23/19, neurosurgeon Dr. Doll formed the right MCA thrombectomy, due to right RI occlusion. Postprocedural right ICA arteriogram demonstrated TICI?2b revascularization. CT of head without contrast on 06/04/2019 right MCA territory infarct with decrease edema noted in resolution of previously noted mass-effect of the right lateral ventricle and resolution of previously noted midline shift. Scattered hemorrhage within the infarct is less well seen in particular the right basal ganglia hemorrhage is less tense. No new hemorrhage is identified.. Unable to obtain MRI due to pacemaker. TTE done which showed ejection fraction 65 to 70% and RVSP 41-45 mmHg. LDL 116, HgbA1c 6.5%. Prior to hospitalization patient was on Xarelto 15 mg daily for A. fib, currently has been stopped. Patient lives with niece in a two-story house with first-floor set up, 2 steps to enter. Patient was independent with all ADLs, mobility, and driving prior to hospitalization. Plan - PT for mobility - OT for ADLs - ST for evaluation - Right MCA infarct post thrombectomy on statin, asa, antihypertensives Repeat CT of brain on 06/22/19 showed expected evolution of right MCA infarct, without midline shift or hemorrhage. - Pulmonary HTN on valsartan and coreg hold if SBP <130 - A-fib with RVR on flecainide xeralto discontinued - DM type II on humalog S.C., accuchecks ac/hs, HgbA1c 6.5% - CAD on asa - HLD on lipitor LDL 116 - RUDY stable 06/07/19 H/H 33.8/10.9 - Anxiety/depression on cymbalta - Insomnia/visual hallucinations on seroquel - Dysphagia failed MBS on 06/13/19 peg placement- on jevity and sterile water flushes, sher water protocol, daily weight and I/O - Hypokalemia on potassium 06/26 K+ 4.2 - resolved - Diarrhea probably secondary to Jevity- resolved Imodium prn, acidophilus jevity adjusted decreased to 5 x/day - Aspiration pneumonia on zosyn completed - Thrush on nystatin paint on tongue - GI/DVT prophylaxis pepcid/lovenox, knee high nataly hose - Medical management per hospitalist-consult - Analgesics as needed - Bowel protocol - F/U neurosurgeon Dr. Harrison, PCP, neurology, cardiology
--- NOTE | 2019-07-01 10:01 | CASEMGMT ---
Social Work IDT met with patient, two daughters and son for care plan meeting. Discussed patient's progress in therapy. Patient was awake for most of Team meeting. Pt stated she is having visual hallucinations seeing bugs, etc, which is distracting to pt focus in therapy sessions. Pt is sleeping through the night. Physician stating since medications have been adjusted, likely due to stroke. Pt for bed mobility max, edge of bed mod x2 with cues, transfers mod to max x2. Pt is walking on wall rail twice before resting, left leg still crossing over midline with slipper socks on left foot at max assist and close w/c follow. Pt fatigues easily and needs motivation for tasks. For OT, pt is mod to max x2 for stand pivot to tub bench d/t balance and thoroughness. pt is min assist fro grooming, total assist for dressing and bathing. Continuing to work on trunk control and strength. St working on swallowing exercises, needs more progress before repeat MDS. Working on visual attention and neglect, improving on midline and scanning, but varies per session. Overall, therapies state pt has not made significant progress from last week. Will continue to work with pt. Explained insurance update 07/02 and family will decide for pt to transfer to [facility] or [facility] if pt is issued LCD. Will continue to follow. NBA WeaverW
[2019-07-01] MEDS: Flecainide 100 MG Tablet GT ×2 (10:32→20:27)
[2019-07-01] MEDS: Famotidine 20 MG Tablet GT (10:33)
[2019-07-01] MEDS: Losartan Potassium 100 MG Tablet GT (10:33)
[2019-07-01] MEDS: hydroCHLOROthiazide 25 MG Tablet GT (10:33)
[2019-07-01] MEDS: APIXABAN 5 MG TABLET GT ×2 (10:33→20:27)
[2019-07-01] MEDS: DULoxetine Hcl 60 MG Capsule PO (10:33)
[2019-07-01] MEDS: Menthol/Lanolin/Calamine/Znox 113 GM Tube 1 APPLIC TOPICAL ×2 (10:34→20:28)
[2019-07-01 12:50] VITALS: BMI 23.8
[2019-07-01 18:40] VITALS: BP 165/85; PULSE 65; RESP 14; TEMP 36.4; O2SAT 96
[2019-07-01] MEDS: Atorvastatin Calcium 40 MG Tablet GT (20:27)
[2019-07-01] MEDS: QUEtiapine 25 MG Tablet GT (20:34)
[2019-07-01] MEDS: Latanoprost 0.005% 1 Bottle 1 DRP EACH EYE (20:35)
[2019-07-01 20:57] VITALS: BMI 23.8
[2019-07-01 22:00] VITALS: PULSE 65; RESP 17; O2SAT 96
[2019-07-02] MEDS: Carvedilol 12.5 MG Tablet GT ×3 (05:00→19:43)
[2019-07-02] MEDS: Jevity 1.5. 1,000 ML Bottle 240 ML GT ×5 (05:01→20:09)
[2019-07-02] MEDS: Acetaminophen 650 MG/20 ML UDC 1000 MG GT ×3 (05:01→20:09)
[2019-07-02 07:02] VITALS: BP 168/87; PULSE 61; RESP 16; TEMP 36.9; O2SAT 97
--- NOTE | 2019-07-02 09:11 | PCM.PN.NEU ---
Subjective: Per nursing, no issues overnight. Patient slept well last night and is working with therapy this am. - Physical Exam Vitals/I&O's: Vital Signs Temp Pulse Resp BP Pulse Ox 98.5 F 61 16 168/87 H 97 07/02/19 07:02 07/02/19 07:02 07/02/19 07:02 07/02/19 07:02 07/02/19 07:02 Oxygen Delivery Method Room Air Weight: 65.9 kg Body Mass Index (BMI) 23.8 Finger Stick Blood Glucose 143 Intake and Output for Last 24 Hours 06/30/19 07/01/19 07/02/19 23:59 23:59 23:59 Intake Total 2880 / 2880 2340 / 2340 390 / 390 Output Total 600 / 600 650 / 650 Balance 2280 / 2280 1690 / 1690 390 / 390 General: Alert, Oriented x3 - cues for year, Cooperative HEENT: Atraumatic, PERRLA, EOMI, - - left hemianopia Oral: - - thrush-improving Neck: Supple, No JVD Lungs: Clear to auscultation, Normal air movement Cardiovascular: Regular rate, Regular Rhythm Abdomen: Bowel Sounds Present, Soft, Non Tender Extremities: No clubbing, No cyanosis, No edema Skin: - - peg site without surrounding drng or redness Neurological: Cranial nerves II-XII grossly intact, Deep Tendon Reflexes 2+/4 and Symmetrical, Facial Droop - mild left, Slurred Speech - mild, - - Motor strength RUE/RLE 5/5, LUE 0/5, LLE 3/5 Psych/Mental Status: Normal Affect, Appropriate, Alert and oriented to time, place, person, mood and affect - needed cues for year, cooperative and pleasant Current Medications Acetaminophen (Tylenol Liquid) 1,000 mg GT TID [facility] Last Admin: 07/02/19 05:01 Dose: 1,000 mg Documented by: Apixaban (Eliquis) 5 mg GT BID [facility] Last Admin: 07/01/19 20:27 Dose: 5 mg Documented by: Atorvastatin Calcium (Lipitor) 40 mg GT QHS [facility] Last Admin: 07/01/19 20:27 Dose: 40 mg Documented by: Bisacodyl (Dulcolax) 10 mg RECTAL .PRN X 1 PRN PRN Reason: Constipation Calamine/Phenol (Calmoseptine Ointment) 1 applic TOPICAL BID [facility]; Protocol Last Admin: 07/01/19 20:28 Dose: 1 applicatio Documented by: Carvedilol (Coreg) 12.5 mg GT Q8 [facility] Last Admin: 07/02/19 05:00 Dose: 12.5 mg Documented by: Duloxetine HCl (Cymbalta) 60 mg PO DAILY [facility] Last Admin: 07/01/19 10:33 Dose: 60 mg Documented by: Enteral Nutritional Formula (Jevity 1.5) 240 ml GT 5X/DAY [facility] Last Admin: 07/02/19 05:01 Dose: 240 ml Documented by: Famotidine (Pepcid) 20 mg GT DAILY [facility] Last Admin: 07/01/19 10:33 Dose: 20 mg Documented by: Flecainide Acetate (Tambocor) 100 mg GT BID [facility] Last Admin: 07/01/19 20:27 Dose: 100 mg Documented by: Hydrochlorothiazide (Hctz) 25 mg GT DAILY [facility] Last Admin: 07/01/19 10:33 Dose: 25 mg Documented by: Lactobacillus Acidophilus (Acidophilus) 1 tablet GT BID [facility] Last Admin: 07/01/19 20:34 Dose: 1 tablet Documented by: Latanoprost (Xalatan Opthalmic) 1 drop EACH EYE DAILY@2199 [facility] Last Admin: 07/01/19 20:35 Dose: 1 drop Documented by: Loperamide HCl (Imodium) 2 mg PO Q4H PRN PRN PRN Reason: DIARRHEA/LOOSE STOOLS Last Admin: 06/28/19 09:01 Dose: 2 mg Documented by: Losartan Potassium (Cozaar) 100 mg GT DAILY [facility] Last Admin: 07/01/19 10:33 Dose: 100 mg Documented by: Magnesium Hydroxide (Milk Of Magnesia) 30 ml PO .PRN X 1 PRN PRN Reason: Constipation Potassium Chloride (Potassium Chl Soln) 20 meq GT DAILY [facility] Last Admin: 07/01/19 10:32 Dose: 20 meq Documented by: Quetiapine Fumarate (Seroquel) 25 mg GT DAILY@2000 [facility] Last Admin: 07/01/19 20:34 Dose: 25 mg Documented by: Sodium Chloride () 5 - 15 ml IV UD PRN PRN Reason: SALINE FLUSH Last Admin: 06/19/19 06:13 Dose: 10 ml Documented by: STROKE Vital Signs/Narrative: Vital Signs Temp Pulse Resp BP Pulse Ox 07/02/19 07:02 98.5 F 61 16 168/87 H 97 Medical Necessity - Tobacco Use Smoking Status: Never smoker Tobacco Use: Non-smoker Assessment/Plan All Active Problems (Last Updated 06/12/19 @ 14:09 by Kathi Shields) CVA (cerebral vascular accident) (Acute 05/2019) Acute CVA (cerebrovascular accident) (Resolved) Atrial fibrillation with RVR (Resolved) Dehydration (Resolved) Fecal occult blood test positive (Resolved) Heme + stool (Resolved) Hypokalemia (Resolved) Iron deficiency anemia due to chronic blood loss (Resolved) Junctional bradycardia (Resolved) Left facial numbness (Resolved) Migraine (Resolved) Paresthesias in left hand (Resolved) Subtherapeutic international normalized ratio (INR) (Resolved) Supratherapeutic INR (Resolved) The patient is a 79 year old F with PMH of pulmonary HTN, HLD, CAD, DM type II, A-fib with RVR, pacemaker, RUDY, anxiety and depression admitted to [facility] on 06/06/2019 for debility secondary to right MCA post thrombectomy, for 3 hours of therapy daily with a goal of returning home at or near her prior level of independence. She presented to [facility] ER on 05/23/2019 due to patient was found laying on the ground in her garage with left-sided deficits. Pressure was 161/90 with heart rate of 60. NIH was 20. CT of brain suggestive of thrombus in the right MCA and an early infarct in the right MCA territory. CTA head and neck with contrast impression right MCA occlusion. No TPA and patient was transferred to [facility]. On 05/23/19, neurosurgeon Dr. Doll formed the right MCA thrombectomy, due to right [place] occlusion. Postprocedural right ICA arteriogram demonstrated TICI?2b revascularization. CT of head without contrast on 06/04/2019 right MCA territory infarct with decrease edema noted in resolution of previously noted mass-effect of the right lateral ventricle and resolution of previously noted midline shift. Scattered hemorrhage within the infarct is less well seen in particular the right basal ganglia hemorrhage is less tense. No new hemorrhage is identified.. Unable to obtain MRI due to pacemaker. TTE done which showed ejection fraction 65 to 70% and RVSP 41-45 mmHg. LDL 116, HgbA1c 6.5%. Prior to hospitalization patient was on Xarelto 15 mg daily for A. fib, currently has been stopped. Patient lives with niece in a two-story house with first-floor set up, 2 steps to enter. Patient was independent with all ADLs, mobility, and driving prior to hospitalization. Plan - PT for mobility - OT for ADLs - ST for evaluation - Right MCA infarct post thrombectomy on statin, asa, antihypertensives Repeat CT of brain on 06/22/19 showed expected evolution of right MCA infarct, without midline shift or hemorrhage. - Pulmonary HTN on valsartan and coreg hold if SBP <130 - A-fib with RVR on flecainide xeralto discontinued - DM type II on humalog S.C., accuchecks ac/hs, HgbA1c 6.5% - CAD on asa - HLD on lipitor LDL 116 - RUDY stable 06/07/19 H/H 33.8/10.9 - Anxiety/depression on cymbalta - Insomnia/visual hallucinations on seroquel - Dysphagia failed MBS on 06/13/19 peg placement- on jevity and sterile water flushes, sher water protocol, daily weight and I/O - Hypokalemia on potassium 06/26 K+ 4.2 - resolved - Diarrhea probably secondary to Jevity- resolved Imodium prn, acidophilus jevity adjusted decreased to 5 x/day - Aspiration pneumonia on zosyn completed - Thrush on nystatin paint on tongue - GI/DVT prophylaxis pepcid/lovenox, knee high nataly hose - Medical management per hospitalist-consult - Analgesics as needed - Bowel protocol - F/U neurosurgeon Dr. Harrison, PCP, neurology, cardiology
[2019-07-02] MEDS: Famotidine 20 MG Tablet GT (10:03)
[2019-07-02] MEDS: Losartan Potassium 100 MG Tablet GT (10:03)
[2019-07-02] MEDS: Flecainide 100 MG Tablet GT ×2 (10:03→19:44)
[2019-07-02] MEDS: Menthol/Lanolin/Calamine/Znox 113 GM Tube 1 APPLIC TOPICAL ×2 (10:04→19:43)
[2019-07-02] MEDS: DULoxetine Hcl 60 MG Capsule PO (10:04)
[2019-07-02] MEDS: APIXABAN 5 MG TABLET GT ×2 (10:04→19:43)
[2019-07-02] MEDS: hydroCHLOROthiazide 25 MG Tablet GT (10:04)
[2019-07-02 11:46] VITALS: BMI 23.8
--- NOTE | 2019-07-02 12:55 | PCM.PROGNOTE ---
Subjective: Chief complaint: Follow-up after consultation for medical management following admission to inpatient rehabilitation unit. Patient seen and examined. No acute events overnight. She has been intermittently confused according to nursing staff. She denies any pain. Weakness of the left upper extremity still there. She denies chest pain or shortness of breath. She is able to move her left lower extremity. Her blood pressure slightly elevated, other vital signs are stable. - Physical Exam Vitals/I&O's: Vital Signs Temp Pulse Resp BP Pulse Ox 98.5 F 61 16 168/87 H 97 07/02/19 07:02 07/02/19 07:02 07/02/19 07:02 07/02/19 07:02 07/02/19 07:02 Oxygen Delivery Method Room Air Weight: 145 lb 4.554 oz Body Mass Index (BMI) 23.8 Finger Stick Blood Glucose 143 Intake and Output for Last 24 Hours 06/30/19 07/01/19 07/02/19 23:59 23:59 23:59 Intake Total 2880 / 2880 2340 / 2340 1170 / 1170 Output Total 600 / 600 650 / 650 Balance 2280 / 2280 1690 / 1690 1170 / 1170 General: Alert, Cooperative, No apparent distress HEENT: Atraumatic, PERRLA, EOMI, Normocephalic Oral: Moist Mucosa, No Gingival or Mucosal Lesions/ Ulcerations Neck: Supple, No JVD, Negative Carotid Bruits, Trachea Midline, Thyroid Normal Size and Texture Lungs: Clear to auscultation, Normal air movement, No rhonchi, No wheeze, No rales, Diminished Cardiovascular: Regular rate, Regular Rhythm, Normal S1, Normal S2, PMI Normal Abdomen: Bowel Sounds Present, Soft, Non Tender, Non-Distended, No Hepato-splenomegaly Extremities: No clubbing, No cyanosis, No edema Skin: No rashes, No breakdown Neurological: Cranial nerves II-XII grossly intact, - - Left upper extremity monoplegia. Psych/Mental Status: Appropriate, Flat Affect Current Medications Acetaminophen (Tylenol Liquid) 1,000 mg GT TID [facility] Last Admin: 07/02/19 05:01 Dose: 1,000 mg Documented by: Apixaban (Eliquis) 5 mg GT BID [facility] Last Admin: 07/02/19 10:04 Dose: 5 mg Documented by: Atorvastatin Calcium (Lipitor) 40 mg GT QHS [facility] Last Admin: 07/01/19 20:27 Dose: 40 mg Documented by: Bisacodyl (Dulcolax) 10 mg RECTAL .PRN X 1 PRN PRN Reason: Constipation Calamine/Phenol (Calmoseptine Ointment) 1 applic TOPICAL BID [facility]; Protocol Last Admin: 07/02/19 10:04 Dose: 1 applicatio Documented by: Carvedilol (Coreg) 12.5 mg GT Q8 [facility] Last Admin: 07/02/19 05:00 Dose: 12.5 mg Documented by: Duloxetine HCl (Cymbalta) 60 mg PO DAILY [facility] Last Admin: 07/02/19 10:04 Dose: 60 mg Documented by: Enteral Nutritional Formula (Jevity 1.5) 240 ml GT 5X/DAY [facility] Last Admin: 07/02/19 10:04 Dose: 240 ml Documented by: Famotidine (Pepcid) 20 mg GT DAILY [facility] Last Admin: 07/02/19 10:03 Dose: 20 mg Documented by: Flecainide Acetate (Tambocor) 100 mg GT BID [facility] Last Admin: 07/02/19 10:03 Dose: 100 mg Documented by: Hydrochlorothiazide (Hctz) 25 mg GT DAILY [facility] Last Admin: 07/02/19 10:04 Dose: 25 mg Documented by: Lactobacillus Acidophilus (Acidophilus) 1 tablet GT BID [facility] Last Admin: 07/02/19 10:03 Dose: 1 tablet Documented by: Latanoprost (Xalatan Opthalmic) 1 drop EACH EYE DAILY@2200 [facility] Last Admin: 07/01/19 20:35 Dose: 1 drop Documented by: Loperamide HCl (Imodium) 2 mg PO Q4H PRN PRN PRN Reason: DIARRHEA/LOOSE STOOLS Last Admin: 06/28/19 09:01 Dose: 2 mg Documented by: Losartan Potassium (Cozaar) 100 mg GT DAILY [facility] Last Admin: 07/02/19 10:03 Dose: 100 mg Documented by: Magnesium Hydroxide (Milk Of Magnesia) 30 ml PO .PRN X 1 PRN PRN Reason: Constipation Potassium Chloride (Potassium Chl Soln) 20 meq GT DAILY [facility] Last Admin: 07/02/19 10:03 Dose: 20 meq Documented by: Quetiapine Fumarate (Seroquel) 25 mg GT DAILY@2000 [facility] Last Admin: 07/01/19 20:34 Dose: 25 mg Documented by: Sodium Chloride () 5 - 15 ml IV UD PRN PRN Reason: SALINE FLUSH Last Admin: 06/19/19 06:13 Dose: 10 ml Documented by: Medical Necessity - Tobacco Use Smoking Status: Never smoker Tobacco Use: Non-smoker Assessment/Plan All Active Problems (Last Updated 06/12/19 @ 14:09 by Kathi Shields) CVA (cerebral vascular accident) (Acute 05/2019) This is a 79 years old female patient admitted to inpatient rehabilitation unit after she suffered a right MCA stroke with 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 #1 acute right MCA stroke: With resultant left-sided intact, left-sided upper monoplegia and lower monoparesis, status post thrombectomy. She is on Eliquis and statins. Blood pressure slightly elevated, other vital signs are stable. Still having significant left upper extremity monoparesis, able to move her left lower extremity. Plan to continue PT OT according to rehab team. #2 dysphagia: Status post PEG tube placement, on tube feeds, she is tolerating tube feeds. #3 recent history of aspiration pneumonia, completed treatment with IV Zosyn. Blood culture showed no growth in 5 days. Urine culture was negative. #4 paroxysmal atrial fibrillation: Rate is controlled, continue flecainide and Coreg for rate control, continue Eliquis for anticoagulation. #5 hypertension: Blood pressure slightly elevated, continue HCTZ, losartan and Coreg. #6 type 2 diabetes mellitus: Blood sugar stable, metformin has been on hold. #7 depression/anxiety: Continue Seroquel and Cymbalta. #8 DVT prophylaxis: Continue Eliquis. This note was generated with [employer] dictation software. It may contain incorrect words, spelling, and punctuation that were not noted in checking the note before signing. Code Visit Inpatient E&M: 91985 Subs Hosp L2
--- NOTE | 2019-07-02 13:53 | CASEMGMT ---
Insurance: Continued stay review faxed to [facility] this day. Auth #[id number]
[2019-07-02 18:50] VITALS: BP 141/79; PULSE 61; RESP 14; TEMP 36.4; O2SAT 96
[2019-07-02] MEDS: QUEtiapine 25 MG Tablet GT (19:42)
[2019-07-02] MEDS: Atorvastatin Calcium 40 MG Tablet GT (19:44)
[2019-07-02] MEDS: Latanoprost 0.005% 1 Bottle 1 DRP EACH EYE (20:10)
[2019-07-02 20:21] VITALS: BMI 23.8
[2019-07-02 22:00] VITALS: PULSE 61; RESP 15; O2SAT 96
[2019-07-03] MEDS: Jevity 1.5. 1,000 ML Bottle 240 ML GT ×5 (06:39→20:19)
[2019-07-03] MEDS: Acetaminophen 650 MG/20 ML UDC 1000 MG GT ×3 (06:39→20:20)
[2019-07-03] MEDS: Carvedilol 12.5 MG Tablet GT ×3 (06:39→20:21)
[2019-07-03 07:00] VITALS: BP 146/92; PULSE 61; RESP 16; TEMP 36.6; O2SAT 95
[2019-07-03] MEDS: Famotidine 20 MG Tablet GT (09:10)
[2019-07-03] MEDS: hydroCHLOROthiazide 25 MG Tablet GT (09:10)
[2019-07-03] MEDS: Flecainide 100 MG Tablet GT ×2 (09:10→20:20)
[2019-07-03] MEDS: DULoxetine Hcl 60 MG Capsule PO (09:10)
[2019-07-03] MEDS: Losartan Potassium 100 MG Tablet GT (09:10)
[2019-07-03] MEDS: APIXABAN 5 MG TABLET GT ×2 (09:11→20:19)
[2019-07-03] MEDS: Menthol/Lanolin/Calamine/Znox 113 GM Tube 1 APPLIC TOPICAL ×2 (09:39→20:21)
[2019-07-03] MEDS: Loperamide 2 MG Capsule PO (09:39)
--- NOTE | 2019-07-03 11:51 | PN.NEURO_ITS ---
Subjective: Per nursing, no issues overnight and patient slept well. Patient alert and cooperative, continues to tolerate therapies. - Physical Exam Vitals/I&O's: Vital Signs Temp Pulse Resp BP Pulse Ox 97.9 F 61 16 146/92 H 95 07/03/19 07:00 07/03/19 07:00 07/03/19 07:00 07/03/19 07:00 07/03/19 07:00 Oxygen Delivery Method Room Air Weight: 64.1 kg Body Mass Index (BMI) 23.8 Finger Stick Blood Glucose 143 Intake and Output for Last 24 Hours 07/01/19 07/02/19 07/03/19 23:59 23:59 23:59 Intake Total 2340 / 2340 2730 / 2730 780 / 780 Output Total 650 / 650 Balance 1690 / 1690 2730 / 2730 780 / 780 General: Alert, Oriented x3 - can be forgetful, Cooperative HEENT: Atraumatic, PERRLA, EOMI, - - left hemianopia Oral: - - thrush Neck: Supple, No JVD Lungs: Clear to auscultation, Normal air movement Cardiovascular: Regular rate, Regular Rhythm Abdomen: Bowel Sounds Present, Soft, Non Tender Skin: Incision - peg site intact without surrounding redness or drng Neurological: Cranial nerves II-XII grossly intact - left hemianopia, Deep Tendon Reflexes 2+/4 and Symmetrical, Facial Droop - left mild, Slurred Speech - mild, - - Motor strength- RUE/RLE 5/5, RUE 0/5, RLE 3/5. Psych/Mental Status: Normal Affect, Appropriate, - - A/O x3, can be forgetful, cooperative, pleasant and redircts easily. Current Medications Acetaminophen (Tylenol Liquid) 1,000 mg GT TID [facility] Last Admin: 07/03/19 06:39 Dose: 1,000 mg Documented by: Apixaban (Eliquis) 5 mg GT BID [facility] Last Admin: 07/03/19 09:11 Dose: 5 mg Documented by: Atorvastatin Calcium (Lipitor) 40 mg GT QHS [facility] Last Admin: 07/02/19 19:44 Dose: 40 mg Documented by: Bisacodyl (Dulcolax) 10 mg RECTAL .PRN X 1 PRN PRN Reason: Constipation Calamine/Phenol (Calmoseptine Ointment) 1 applic TOPICAL BID [facility]; Protocol Last Admin: 07/03/19 09:39 Dose: 1 applicatio Documented by: Carvedilol (Coreg) 12.5 mg GT Q8 [facility] Last Admin: 07/03/19 06:39 Dose: 12.5 mg Documented by: Duloxetine HCl (Cymbalta) 60 mg PO DAILY [facility] Last Admin: 07/03/19 09:10 Dose: 60 mg Documented by: Enteral Nutritional Formula (Jevity 1.5) 240 ml GT 5X/DAY [facility] Last Admin: 07/03/19 09:12 Dose: 240 ml Documented by: Famotidine (Pepcid) 20 mg GT DAILY [facility] Last Admin: 07/03/19 09:10 Dose: 20 mg Documented by: Flecainide Acetate (Tambocor) 100 mg GT BID [facility] Last Admin: 07/03/19 09:10 Dose: 100 mg Documented by: Hydrochlorothiazide (Hctz) 25 mg GT DAILY [facility] Last Admin: 07/03/19 09:10 Dose: 25 mg Documented by: Lactobacillus Acidophilus (Acidophilus) 1 tablet GT BID [facility] Last Admin: 07/03/19 09:10 Dose: 1 tablet Documented by: Latanoprost (Xalatan Opthalmic) 1 drop EACH EYE DAILY@2199 [facility] Last Admin: 07/02/19 20:10 Dose: 1 drop Documented by: Loperamide HCl (Imodium) 2 mg PO Q4H PRN PRN PRN Reason: DIARRHEA/LOOSE STOOLS Last Admin: 07/03/19 09:39 Dose: 2 mg Documented by: Losartan Potassium (Cozaar) 100 mg GT DAILY [facility] Last Admin: 07/03/19 09:10 Dose: 100 mg Documented by: Magnesium Hydroxide (Milk Of Magnesia) 30 ml PO .PRN X 1 PRN PRN Reason: Constipation Potassium Chloride (Potassium Chl Soln) 20 meq GT DAILY [facility] Last Admin: 07/03/19 11:00 Dose: 20 meq Documented by: Quetiapine Fumarate (Seroquel) 25 mg GT DAILY@1999 [facility] Last Admin: 07/02/19 19:42 Dose: 25 mg Documented by: Sodium Chloride () 5 - 15 ml IV UD PRN PRN Reason: SALINE FLUSH Last Admin: 06/19/19 06:13 Dose: 10 ml Documented by: Medical Necessity - Tobacco Use Smoking Status: Never smoker Tobacco Use: Non-smoker Assessment/Plan All Active Problems (Last Updated 07/02/19 @ 12:59 by Yola Gonzalez MD) CVA (cerebral vascular accident) (Acute 05/2019) The patient is a 79 year old F with PMH of pulmonary HTN, HLD, CAD, DM type II, A-fib with RVR, pacemaker, RUDY, anxiety and depression admitted to [facility] on 06/06/2019 for debility secondary to right MCA post thrombectomy, for 3 hours of therapy daily with a goal of returning home at or near her prior level of independence. She presented to [facility] ER on 05/23/2019 due to patient was found laying on the ground in her garage with left-sided deficits. Pressure was 161/90 with heart rate of 60. NIH was 20. CT of brain suggestive of thrombus in the right MCA and an early infarct in the right MCA territory. CTA head and neck with contrast impression right MCA occlusion. No TPA and patient was transferred to [facility]. On 05/23/19, neurosurgeon Dr. Doll formed the right MCA thrombectomy, due to right [place] occlusion. Postprocedural right ICA arteriogram demonstrated TICI?2b revascularization. CT of head without contrast on 06/04/2019 right MCA territory infarct with decrease edema noted in resolution of previously noted mass-effect of the right lateral ventricle and resolution of previously noted midline shift. Scattered hemorrhage within the infarct is less well seen in particular the right basal ganglia hemorrhage is less tense. No new hemorrhage is identified.. Unable to obtain MRI due to pacemaker. TTE done which showed ejection fraction 65 to 70% and RVSP 41-45 mmHg. LDL 116, HgbA1c 6.5%. Prior to hospitalization patient was on Xarelto 15 mg daily for A. fib, currently has been stopped. Patient lives with niece in a two-story house with first-floor set up, 2 steps to enter. Patient was independent with all ADLs, mobility, and driving prior to hospitalization. Plan - PT for mobility - OT for ADLs - ST for evaluation - Right MCA infarct post thrombectomy on statin, asa, antihypertensives Repeat CT of brain on 06/22/19 showed expected evolution of right MCA infarct, without midline shift or hemorrhage. - Pulmonary HTN on valsartan and coreg hold if SBP <130 - A-fib with RVR on flecainide xeralto discontinued - DM type II on humalog S.C., accuchecks ac/hs, HgbA1c 6.5% - CAD on asa - HLD on lipitor LDL 116 - RUDY stable 06/07/19 H/H 33.8/10.9 - Anxiety/depression on cymbalta - Insomnia/visual hallucinations on seroquel - Dysphagia failed MBS on 06/13/19 peg placement- on jevity and sterile water flushes, sher water protocol, daily weight and I/O - Hypokalemia on potassium 06/26 K+ 4.2 - resolved - Diarrhea probably secondary to Jevity- resolved Imodium prn, acidophilus jevity adjusted decreased to 5 x/day - Aspiration pneumonia on zosyn completed - Thrush on nystatin paint on tongue - GI/DVT prophylaxis pepcid/lovenox, knee high nataly hose - Medical management per hospitalist-consult - Analgesics as needed - Bowel protocol - F/U neurosurgeon Dr. Harrison, PCP, neurology, cardiology
--- NOTE | 2019-07-03 13:02 | CASEMGMT ---
Social Work Notified dtr, Angela, that insurance approved pt with NRD 07/09, and asking for DC plans to anticipate DC date. Dtr and family have chosen [facility]. Notified facility. Will continue to follow. Shannan Mcclellan, TE[employer]ET[employer]GER [employer] ARCHITECT
[2019-07-03 13:44] VITALS: BMI 23.8
[2019-07-03 19:15] VITALS: BP 143/78; PULSE 62; RESP 17; TEMP 36.9; O2SAT 94
[2019-07-03] MEDS: QUEtiapine 25 MG Tablet GT (20:18)
[2019-07-03] MEDS: Atorvastatin Calcium 40 MG Tablet GT (20:20)
[2019-07-03] MEDS: Latanoprost 0.005% 1 Bottle 1 DRP EACH EYE (20:21)
[2019-07-03 22:20] VITALS: BMI 23.8
[2019-07-04] MEDS: Acetaminophen 650 MG/20 ML UDC 1000 MG GT ×3 (06:16→19:58)
[2019-07-04] MEDS: Carvedilol 12.5 MG Tablet GT ×3 (06:16→19:57)
[2019-07-04] MEDS: Jevity 1.5. 1,000 ML Bottle 240 ML GT ×5 (06:16→19:57)
[2019-07-04 08:23] VITALS: BP 144/75; PULSE 61; RESP 15; TEMP 36.5; O2SAT 94
--- NOTE | 2019-07-04 09:25 | PN.NEURO_ITS ---
Subjective: Per nursing, no issues overnight and continues to sleep well at night. Patient continues to tolerate therapies. - Physical Exam Vitals/I&O's: Vital Signs Temp Pulse Resp BP Pulse Ox 97.7 F L 61 15 144/75 H 94 07/04/19 08:23 07/04/19 08:23 07/04/19 08:23 07/04/19 08:23 07/04/19 08:23 Oxygen Delivery Method Room Air Weight: 64.8 kg Body Mass Index (BMI) 23.8 Finger Stick Blood Glucose 143 Intake and Output for Last 24 Hours 07/02/19 07/03/19 07/04/19 23:59 23:59 23:59 Intake Total 2730 / 2730 3170 / 3170 390 / 390 Output Total 1050 / 1050 300 / 300 Balance 2730 / 2730 2120 / 2120 90 / 90 General: Alert, Cooperative, - - oriented to self and place, unaware of year/month HEENT: Atraumatic, PERRLA, EOMI, - - left hemianopia Oral: - - thrush - improving Neck: Supple, No JVD Lungs: Clear to auscultation, Normal air movement Cardiovascular: Regular rate, Regular Rhythm Abdomen: Bowel Sounds Present, Soft, Non Tender Extremities: No clubbing, No cyanosis, No edema Skin: Incision - peg site without surrounding redness or drng Neurological: Cranial nerves II-XII grossly intact - left hemianopia, Deep Tendon Reflexes 2+/4 and Symmetrical, - - Motor strength RUE/RLE 5/5, LUE 0/5, LLE 3/5 Psych/Mental Status: Normal Affect, Appropriate, - - Alert and oriented x 2, self and place, unaware of year, month cooperative,pleasant, easily redirected Current Medications Acetaminophen (Tylenol Liquid) 1,000 mg GT TID [facility] Last Admin: 07/04/19 06:16 Dose: 1,000 mg Documented by: Apixaban (Eliquis) 5 mg GT BID [facility] Last Admin: 07/03/19 20:19 Dose: 5 mg Documented by: Atorvastatin Calcium (Lipitor) 40 mg GT QHS [facility] Last Admin: 07/03/19 20:20 Dose: 40 mg Documented by: Bisacodyl (Dulcolax) 10 mg RECTAL .PRN X 1 PRN PRN Reason: Constipation Calamine/Phenol (Calmoseptine Ointment) 1 applic TOPICAL BID [facility]; Protocol Last Admin: 07/03/19 20:21 Dose: 1 applicatio Documented by: Carvedilol (Coreg) 12.5 mg GT Q8 [facility] Last Admin: 07/04/19 06:16 Dose: 12.5 mg Documented by: Duloxetine HCl (Cymbalta) 60 mg PO DAILY [facility] Last Admin: 07/03/19 09:10 Dose: 60 mg Documented by: Enteral Nutritional Formula (Jevity 1.5) 240 ml GT 5X/DAY [facility] Last Admin: 07/04/19 06:16 Dose: 240 ml Documented by: Famotidine (Pepcid) 20 mg GT DAILY [facility] Last Admin: 07/03/19 09:10 Dose: 20 mg Documented by: Flecainide Acetate (Tambocor) 100 mg GT BID [facility] Last Admin: 07/03/19 20:20 Dose: 100 mg Documented by: Hydrochlorothiazide (Hctz) 25 mg GT DAILY [facility] Last Admin: 07/03/19 09:10 Dose: 25 mg Documented by: Lactobacillus Acidophilus (Acidophilus) 1 tablet GT BID [facility] Last Admin: 07/03/19 20:18 Dose: 1 tablet Documented by: Latanoprost (Xalatan Opthalmic) 1 drop EACH EYE DAILY@2199 [facility] Last Admin: 07/03/19 20:21 Dose: 1 drop Documented by: Loperamide HCl (Imodium) 2 mg PO Q4H PRN PRN PRN Reason: DIARRHEA/LOOSE STOOLS Last Admin: 07/03/19 09:39 Dose: 2 mg Documented by: Losartan Potassium (Cozaar) 100 mg GT DAILY [facility] Last Admin: 07/03/19 09:10 Dose: 100 mg Documented by: Magnesium Hydroxide (Milk Of Magnesia) 30 ml PO .PRN X 1 PRN PRN Reason: Constipation Potassium Chloride (Potassium Chl Soln) 20 meq GT DAILY [facility] Last Admin: 07/03/19 11:00 Dose: 20 meq Documented by: Quetiapine Fumarate (Seroquel) 25 mg GT DAILY@2000 [facility] Last Admin: 07/03/19 20:18 Dose: 25 mg Documented by: Sodium Chloride () 5 - 15 ml IV UD PRN PRN Reason: SALINE FLUSH Last Admin: 06/19/19 06:13 Dose: 10 ml Documented by: STROKE Vital Signs/Narrative: Vital Signs Temp Pulse Resp BP Pulse Ox 07/04/19 08:23 97.7 F L 61 15 144/75 H 94 Medical Necessity - Tobacco Use Smoking Status: Never smoker Tobacco Use: Non-smoker Assessment/Plan All Active Problems (Last Updated 07/02/19 @ 12:59 by Yola Gonzalez MD) CVA (cerebral vascular accident) (Acute 05/2019) The patient is a 79 year old F with PMH of pulmonary HTN, HLD, CAD, DM type II, A-fib with RVR, pacemaker, RUDY, anxiety and depression admitted to [facility] on 06/06/2019 for debility secondary to right MCA post thrombectomy, for 3 hours of therapy daily with a goal of returning home at or near her prior level of independence. She presented to [facility] ER on 05/23/2019 due to patient was found laying on the ground in her garage with left-sided deficits. Pressure was 161/90 with heart rate of 60. NIH was 20. CT of brain suggestive of thrombus in the right MCA and an early infarct in the right MCA territory. CTA head and neck with contrast impression right MCA occlusion. No TPA and patient was transferred to [facility]. On 05/23/19, neurosurgeon Dr. Doll formed the right MCA thrombectomy, due to right [place] occlusion. Postprocedural right ICA arteriogram demonstrated TICI?2b revascularization. CT of head without contrast on 06/04/2019 right MCA territory infarct with decrease edema noted in resolution of previously noted mass-effect of the right lateral ventricle and resolution of previously noted midline shift. Scattered hemorrhage within the infarct is less well seen in particular the right basal ganglia hemorrhage is less tense. No new hemorrhage is identified.. Unable to obtain MRI due to pacemaker. TTE done which showed ejection fraction 65 to 70% and RVSP 41-45 mmHg. LDL 116, HgbA1c 6.5%. Prior to hospitalization patient was on Xarelto 15 mg daily for A. fib, currently has been stopped. Patient lives with niece in a two-story house with first-floor set up, 2 steps to enter. Patient was independent with all ADLs, mobility, and driving prior to hospitalization. Plan - PT for mobility - OT for ADLs - ST for evaluation - Right MCA infarct post thrombectomy on statin, asa, antihypertensives Repeat CT of brain on 06/22/19 showed expected evolution of right MCA infarct, without midline shift or hemorrhage. - Pulmonary HTN on valsartan and coreg hold if SBP <130 - A-fib with RVR on flecainide xeralto discontinued - DM type II on humalog S.C., accuchecks ac/hs, HgbA1c 6.5% - CAD on asa - HLD on lipitor LDL 116 - RUDY stable 06/07/19 H/H 33.8/10.9 - Anxiety/depression on cymbalta - Insomnia/visual hallucinations on seroquel - Dysphagia failed MBS on 06/13/19 peg placement- on jevity and sterile water flushes, sher water protocol, daily weight and I/O - Hypokalemia on potassium 06/26 K+ 4.2 - resolved - Diarrhea probably secondary to Jevity- resolved Imodium prn, acidophilus jevity adjusted decreased to 5 x/day - Aspiration pneumonia on zosyn completed - Thrush on nystatin paint on tongue - GI/DVT prophylaxis pepcid/lovenox, knee high nataly hose - Medical management per hospitalist-consult - Analgesics as needed - Bowel protocol - F/U neurosurgeon Dr. Harrison, PCP, neurology, cardiology
[2019-07-04] MEDS: Flecainide 100 MG Tablet GT ×2 (09:28→19:58)
[2019-07-04] MEDS: Losartan Potassium 100 MG Tablet GT (09:28)
[2019-07-04] MEDS: APIXABAN 5 MG TABLET GT ×2 (09:28→19:57)
[2019-07-04] MEDS: hydroCHLOROthiazide 25 MG Tablet GT (09:28)
[2019-07-04] MEDS: DULoxetine Hcl 60 MG Capsule PO (09:28)
[2019-07-04] MEDS: Famotidine 20 MG Tablet GT (09:34)
[2019-07-04] MEDS: Loperamide 2 MG Capsule PO ×2 (09:53→14:09)
[2019-07-04] MEDS: Menthol/Lanolin/Calamine/Znox 113 GM Tube 1 APPLIC TOPICAL ×2 (10:00→19:57)
--- NOTE | 2019-07-04 13:57 | PCM.PROGNOTE ---
Subjective: Chief complaint: Follow-up after consultation for medical management following admission to inpatient rehabilitation unit. Patient seen and examined. No acute events overnight. Reportedly according to the nursing staff, she has been doing well with physical therapy. Today, she was able to move her left upper extremity unpurposefully. Denies any chest pain or shortness of breath. Her vital signs are stable. - Physical Exam Vitals/I&O's: Vital Signs Temp Pulse Resp BP Pulse Ox 97.7 F L 61 15 144/75 H 94 07/04/19 08:23 07/04/19 08:23 07/04/19 08:23 07/04/19 08:23 07/04/19 08:23 Oxygen Delivery Method Room Air Weight: 142 lb 13.753 oz Body Mass Index (BMI) 23.8 Finger Stick Blood Glucose 143 Intake and Output for Last 24 Hours 07/02/19 07/03/19 07/04/19 23:59 23:59 23:59 Intake Total 2730 / 2730 3170 / 3170 780 / 780 Output Total 1050 / 1050 300 / 300 Balance 2730 / 2730 2120 / 2120 480 / 480 General: Alert, Cooperative, No apparent distress HEENT: Atraumatic, PERRLA, EOMI, Normocephalic Oral: Moist Mucosa, No Gingival or Mucosal Lesions/ Ulcerations Neck: Supple, No JVD, Negative Carotid Bruits, Trachea Midline Lungs: Clear to auscultation, Normal air movement, No rhonchi, No wheeze, No rales Cardiovascular: Regular rate, Regular Rhythm, Normal S1, Normal S2, PMI Normal Abdomen: Bowel Sounds Present, Soft, Non Tender, Non-Distended, No Hepato-splenomegaly Extremities: No clubbing, No cyanosis, No edema Skin: No rashes, No breakdown Lymphatic: No Cervical, Supraclavicular, or Inguinal Adenopathy Neurological: Cranial nerves II-XII grossly intact, - - Left side hemiparesis, weakness on the left upper extremity is improving. Psych/Mental Status: Appropriate, Flat Affect Current Medications Acetaminophen (Tylenol Liquid) 1,000 mg GT TID [facility] Last Admin: 07/04/19 06:16 Dose: 1,000 mg Documented by: Apixaban (Eliquis) 5 mg GT BID [facility] Last Admin: 07/04/19 09:28 Dose: 5 mg Documented by: Atorvastatin Calcium (Lipitor) 40 mg GT QHS [facility] Last Admin: 07/03/19 20:20 Dose: 40 mg Documented by: Bisacodyl (Dulcolax) 10 mg RECTAL .PRN X 1 PRN PRN Reason: Constipation Calamine/Phenol (Calmoseptine Ointment) 1 applic TOPICAL BID [facility]; Protocol Last Admin: 07/04/19 10:00 Dose: 1 applicatio Documented by: Carvedilol (Coreg) 12.5 mg GT Q8 [facility] Last Admin: 07/04/19 06:16 Dose: 12.5 mg Documented by: Duloxetine HCl (Cymbalta) 60 mg PO DAILY [facility] Last Admin: 07/04/19 09:28 Dose: 60 mg Documented by: Enteral Nutritional Formula (Jevity 1.5) 240 ml GT 5X/DAY [facility] Last Admin: 07/04/19 09:35 Dose: 240 ml Documented by: Famotidine (Pepcid) 20 mg GT DAILY [facility] Last Admin: 07/04/19 09:34 Dose: 20 mg Documented by: Flecainide Acetate (Tambocor) 100 mg GT BID [facility] Last Admin: 07/04/19 09:28 Dose: 100 mg Documented by: Hydrochlorothiazide (Hctz) 25 mg GT DAILY [facility] Last Admin: 07/04/19 09:28 Dose: 25 mg Documented by: Lactobacillus Acidophilus (Acidophilus) 1 tablet GT BID [facility] Last Admin: 07/04/19 09:28 Dose: 1 tablet Documented by: Latanoprost (Xalatan Opthalmic) 1 drop EACH EYE DAILY@2200 [facility] Last Admin: 07/03/19 20:21 Dose: 1 drop Documented by: Loperamide HCl (Imodium) 2 mg PO Q4H PRN PRN PRN Reason: DIARRHEA/LOOSE STOOLS Last Admin: 07/04/19 09:53 Dose: 2 mg Documented by: Losartan Potassium (Cozaar) 100 mg GT DAILY [facility] Last Admin: 07/04/19 09:28 Dose: 100 mg Documented by: Magnesium Hydroxide (Milk Of Magnesia) 30 ml PO .PRN X 1 PRN PRN Reason: Constipation Potassium Chloride (Potassium Chl Soln) 20 meq GT DAILY [facility] Last Admin: 07/04/19 09:34 Dose: 20 meq Documented by: Quetiapine Fumarate (Seroquel) 25 mg GT DAILY@1999 [facility] Last Admin: 07/03/19 20:18 Dose: 25 mg Documented by: Sodium Chloride () 5 - 15 ml IV UD PRN PRN Reason: SALINE FLUSH Last Admin: 06/19/19 06:13 Dose: 10 ml Documented by: Medical Necessity - Tobacco Use Smoking Status: Never smoker Tobacco Use: Non-smoker Assessment/Plan All Active Problems (Last Updated 07/02/19 @ 12:59 by Yola Gonzalez MD) CVA (cerebral vascular accident) (Acute 05/2019) This is a 79 years old female patient admitted to inpatient rehabilitation unit after she suffered a right MCA stroke with 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 #1 acute right MCA stroke: With resultant left-sided intact, left-sided upper monoplegia and lower monoparesis, status post thrombectomy. She is on Eliquis and statins. Blood pressure stable, other vital signs are stable. Weakness on the left side is improving. Plan to continue PT OT according to rehab team. #2 dysphagia: Status post PEG tube placement, on tube feeds, she is tolerating tube feeds. #3 recent history of aspiration pneumonia, completed treatment with IV Zosyn. Blood culture showed no growth in 5 days. Urine culture was negative. #4 paroxysmal atrial fibrillation: Rate is controlled, continue flecainide and Coreg for rate control, continue Eliquis for anticoagulation. #5 hypertension: Blood pressure under better control, continue HCTZ, losartan and Coreg. #6 type 2 diabetes mellitus: Blood sugar stable, metformin has been on hold. #7 depression/anxiety: Continue Seroquel and Cymbalta. #8 DVT prophylaxis: Continue Eliquis. This note was generated with [employer] dictation software. It may contain incorrect words, spelling, and punctuation that were not noted in checking the note before signing. Code Visit Inpatient E&M: 36279 Subs Hosp L2
[2019-07-04 14:17] VITALS: BMI 23.8
[2019-07-04 18:42] VITALS: BP 144/77; PULSE 64; RESP 16; TEMP 36.9; O2SAT 96
[2019-07-04] MEDS: QUEtiapine 25 MG Tablet GT (19:56)
[2019-07-04] MEDS: Atorvastatin Calcium 40 MG Tablet GT (19:57)
[2019-07-04] MEDS: Latanoprost 0.005% 1 Bottle 1 DRP EACH EYE (19:58)
[2019-07-05 03:03] VITALS: BMI 23.8
--- NOTE | 2019-07-05 03:16 | NURSING ---
REVIEWED AND AGREE WITH [employer] INSTALLER'S FUNCTIONAL ABILITY ASSESSMENT OF PT AND HANDOFF.
[2019-07-05] MEDS: Jevity 1.5. 1,000 ML Bottle 240 ML GT ×5 (06:00→19:50)
[2019-07-05] MEDS: Acetaminophen 650 MG/20 ML UDC 1000 MG GT ×3 (06:00→19:51)
[2019-07-05] MEDS: Carvedilol 12.5 MG Tablet GT ×3 (06:01→19:50)
--- NOTE | 2019-07-05 06:48 | NURSING ---
pt noted to be picking at skin at this time. area to chest scabbed and bleeding. staff attempts to redirect pt from picking at skin. areas to face and R leg noted to also having scabbing. lotion applied to extremities. will continue to monitor for picking at skin.
[2019-07-05 10:00] VITALS: BP 139/70; PULSE 62; RESP 18; TEMP 36.6; O2SAT 96
[2019-07-05] MEDS: Famotidine 20 MG Tablet GT (10:01)
[2019-07-05] MEDS: Flecainide 100 MG Tablet GT ×2 (10:01→19:50)
[2019-07-05] MEDS: APIXABAN 5 MG TABLET GT ×2 (10:01→19:50)
[2019-07-05] MEDS: DULoxetine Hcl 60 MG Capsule PO (10:01)
[2019-07-05] MEDS: Loperamide 2 MG Capsule PO (10:01)
[2019-07-05] MEDS: Losartan Potassium 100 MG Tablet GT (10:01)
[2019-07-05] MEDS: Menthol/Lanolin/Calamine/Znox 113 GM Tube 1 APPLIC TOPICAL ×2 (10:02→19:49)
[2019-07-05] MEDS: hydroCHLOROthiazide 25 MG Tablet GT (10:04)
--- NOTE | 2019-07-05 12:52 | PN.NEURO_ITS ---
Subjective: Per nursing, no issues overnight. Patient continues to sleep well at night and continues to tolerate therapy. - Physical Exam Vitals/I&O's: Vital Signs Temp Pulse Resp BP Pulse Ox 97.9 F 62 18 139/70 H 96 07/05/19 10:00 07/05/19 10:00 07/05/19 10:00 07/05/19 10:00 07/05/19 10:00 Oxygen Delivery Method Room Air Weight: 64.6 kg Body Mass Index (BMI) 23.8 Finger Stick Blood Glucose 143 Intake and Output for Last 24 Hours 07/03/19 07/04/19 07/05/19 23:59 23:59 23:59 Intake Total 3170 / 3170 1560 / 1560 780 / 780 Output Total 1050 / 1050 300 / 300 650 / 650 Balance 2120 / 2120 1260 / 1260 130 / 130 General: Alert, Cooperative, - - oreinted to self and place, needed cues for year/month HEENT: Atraumatic, PERRLA, EOMI, - - left hemianopia Oral: - - thrush-improving Neck: Supple, No JVD Lungs: Clear to auscultation, Normal air movement Cardiovascular: Regular rate, Regular Rhythm Extremities: - - peg intact without redness or drng Neurological: Cranial nerves II-XII grossly intact - left hemianopia, Deep Tendon Reflexes 2+/4 and Symmetrical, Facial Droop - left mild, Slurred Speech - mild, - - Motor strength RUE/RLE 5/5, LUE 0/5, LLE 3/5 Psych/Mental Status: Normal Affect, Appropriate, - - alert and oriented to self, place, redirects easily, cooperative, pleasant Current Medications Acetaminophen (Tylenol Liquid) 1,000 mg GT TID [facility] Last Admin: 07/05/19 06:00 Dose: 1,000 mg Documented by: Apixaban (Eliquis) 5 mg GT BID [facility] Last Admin: 07/05/19 10:01 Dose: 5 mg Documented by: Atorvastatin Calcium (Lipitor) 40 mg GT QHS [facility] Last Admin: 07/04/19 19:57 Dose: 40 mg Documented by: Bisacodyl (Dulcolax) 10 mg RECTAL .PRN X 1 PRN PRN Reason: Constipation Calamine/Phenol (Calmoseptine Ointment) 1 applic TOPICAL BID [facility]; Protocol Last Admin: 07/05/19 10:02 Dose: 1 applicatio Documented by: Carvedilol (Coreg) 12.5 mg GT Q8 [facility] Last Admin: 07/05/19 06:01 Dose: 12.5 mg Documented by: Duloxetine HCl (Cymbalta) 60 mg PO DAILY [facility] Last Admin: 07/05/19 10:01 Dose: 60 mg Documented by: Enteral Nutritional Formula (Jevity 1.5) 240 ml GT 5X/DAY [facility] Last Admin: 07/05/19 10:02 Dose: 240 ml Documented by: Famotidine (Pepcid) 20 mg GT DAILY [facility] Last Admin: 07/05/19 10:01 Dose: 20 mg Documented by: Flecainide Acetate (Tambocor) 100 mg GT BID [facility] Last Admin: 07/05/19 10:01 Dose: 100 mg Documented by: Hydrochlorothiazide (Hctz) 25 mg GT DAILY [facility] Last Admin: 07/05/19 10:04 Dose: 25 mg Documented by: Lactobacillus Acidophilus (Acidophilus) 1 tablet GT BID [facility] Last Admin: 07/05/19 10:01 Dose: 1 tablet Documented by: Latanoprost (Xalatan Opthalmic) 1 drop EACH EYE DAILY@2200 [facility] Last Admin: 07/04/19 19:58 Dose: 1 drop Documented by: Loperamide HCl (Imodium) 2 mg PO Q4H PRN PRN PRN Reason: DIARRHEA/LOOSE STOOLS Last Admin: 07/05/19 10:01 Dose: 2 mg Documented by: Losartan Potassium (Cozaar) 100 mg GT DAILY [facility] Last Admin: 07/05/19 10:01 Dose: 100 mg Documented by: Magnesium Hydroxide (Milk Of Magnesia) 30 ml PO .PRN X 1 PRN PRN Reason: Constipation Multi-Ingredient Cream (Eucerin) 1 applic TOPICAL TID PRN PRN; Protocol PRN Reason: Dry Skin Potassium Chloride (Potassium Chl Soln) 20 meq GT DAILY [facility] Last Admin: 07/05/19 10:01 Dose: 20 meq Documented by: Quetiapine Fumarate (Seroquel) 25 mg GT DAILY@2000 [facility] Last Admin: 07/04/19 19:56 Dose: 25 mg Documented by: Sodium Chloride () 5 - 15 ml IV UD PRN PRN Reason: SALINE FLUSH Last Admin: 06/19/19 06:13 Dose: 10 ml Documented by: STROKE Vital Signs/Narrative: Vital Signs Temp Pulse Resp BP Pulse Ox 07/05/19 10:00 97.9 F 62 18 139/70 H 96 Medical Necessity - Tobacco Use Smoking Status: Never smoker Tobacco Use: Non-smoker Assessment/Plan All Active Problems (Last Updated 07/02/19 @ 12:59 by Yola Gonzalez MD) CVA (cerebral vascular accident) (Acute 05/2019) The patient is a 79 year old F with PMH of pulmonary HTN, HLD, CAD, DM type II, A-fib with RVR, pacemaker, RUDY, anxiety and depression admitted to [facility] on 06/06/2019 for debility secondary to right MCA post thrombectomy, for 3 hours of therapy daily with a goal of returning home at or near her prior level of independence. She presented to [facility] ER on 05/23/2019 due to patient was found laying on the ground in her garage with left-sided deficits. Pressure was 161/90 with heart rate of 60. NIH was 20. CT of brain suggestive of thrombus in the right MCA and an early infarct in the right MCA territory. CTA head and neck with contrast impression right MCA occlusion. No TPA and patient was transferred to [facility]. On 05/23/19, neurosurgeon Dr. Doll formed the right MCA thrombectomy, due to right NC occlusion. Postprocedural right ICA arteriogram demonstrated TICI?2b revascularization. CT of head without contrast on 06/04/2019 right MCA territory infarct with decrease edema noted in resolution of previously noted mass-effect of the right lateral ventricle and resolution of previously noted midline shift. Scattered hemorrhage within the infarct is less well seen in particular the right basal ganglia hemorrhage is less tense. No new hemorrhage is identified.. Unable to obtain MRI due to pacemaker. TTE done which showed ejection fraction 65 to 70% and RVSP 41-45 mmHg. LDL 116, HgbA1c 6.5%. Prior to hospitalization patient was on Xarelto 15 mg daily for A. fib, currently has been stopped. Patient lives with niece in a two-story house with first-floor set up, 2 steps to enter. Patient was independent with all ADLs, mobility, and driving prior to hospitalization. Plan - PT for mobility - OT for ADLs - ST for evaluation - Right MCA infarct post thrombectomy on statin, asa, antihypertensives Repeat CT of brain on 06/22/19 showed expected evolution of right MCA infarct, without midline shift or hemorrhage. - Pulmonary HTN on valsartan and coreg hold if SBP <130 - A-fib with RVR on flecainide, eliquis - DM type II on humalog S.C., accuchecks ac/hs, HgbA1c 6.5% - CAD on asa - HLD on lipitor LDL 116 - RUDY stable 06/07/19 H/H 33.8/10.9 - Anxiety/depression on cymbalta - Insomnia/visual hallucinations on seroquel - Dysphagia failed MBS on 06/13/19 peg placement- on jevity and sterile water flushes, sher water protocol, daily weight and I/O - Hypokalemia on potassium 06/26 K+ 4.2 - resolved - Diarrhea probably secondary to Jevity- resolved Imodium prn, acidophilus jevity adjusted decreased to 5 x/day - Aspiration pneumonia on zosyn completed - Thrush on nystatin paint on tongue - GI/DVT prophylaxis pepcid/eliquis, knee high nataly hose - Medical management per hospitalist-consult - Analgesics as needed - Bowel protocol - F/U neurosurgeon Dr. Harrison, PCP, neurology, cardiology
[2019-07-05 14:32] VITALS: BMI 23.8
[2019-07-05] MEDS: QUEtiapine 25 MG Tablet GT (19:49)
[2019-07-05] MEDS: Atorvastatin Calcium 40 MG Tablet GT (19:50)
[2019-07-05] MEDS: Latanoprost 0.005% 1 Bottle 1 DRP EACH EYE (19:51)
[2019-07-05 21:06] VITALS: BP 149/83; PULSE 68; RESP 18; TEMP 36.6; O2SAT 95
[2019-07-05 22:04] VITALS: BMI 23.8
--- NOTE | 2019-07-06 03:27 | NURSING ---
REviewed and agree with LPNs handoff
[2019-07-06] MEDS: Carvedilol 12.5 MG Tablet GT ×3 (05:39→19:31)
[2019-07-06] MEDS: Jevity 1.5. 1,000 ML Bottle 240 ML GT ×5 (05:39→19:33)
[2019-07-06] MEDS: Acetaminophen 650 MG/20 ML UDC 1000 MG GT ×3 (05:39→19:31)
[2019-07-06 07:32] VITALS: BP 135/75; PULSE 63; RESP 20; TEMP 36.7; O2SAT 95
[2019-07-06] MEDS: Loperamide 2 MG Capsule PO (09:29)
[2019-07-06] MEDS: APIXABAN 5 MG TABLET GT ×2 (09:29→19:31)
[2019-07-06] MEDS: DULoxetine Hcl 60 MG Capsule PO (09:29)
[2019-07-06] MEDS: Losartan Potassium 100 MG Tablet GT (09:30)
[2019-07-06] MEDS: Menthol/Lanolin/Calamine/Znox 113 GM Tube 1 APPLIC TOPICAL ×2 (09:30→19:32)
[2019-07-06] MEDS: hydroCHLOROthiazide 25 MG Tablet GT (09:30)
[2019-07-06] MEDS: Famotidine 20 MG Tablet GT (09:31)
[2019-07-06] MEDS: Flecainide 100 MG Tablet GT ×2 (09:31→19:31)
--- NOTE | 2019-07-06 13:10 | PCM.PROGNOTE ---
Subjective: Chief complaint: Follow-up after consultation for medical management following admission to inpatient rehabilitation unit. Patient seen and examined. No acute events overnight. Patient remained intermittently confused and disoriented. She has no complaints. To me, weakness of the left side is improving slowly. Her vital signs are stable. - Physical Exam Vitals/I&O's: Vital Signs Temp Pulse Resp BP Pulse Ox 98.0 F 63 20 H 135/75 H 95 07/06/19 07:32 07/06/19 07:32 07/06/19 07:32 07/06/19 07:32 07/06/19 07:32 Oxygen Delivery Method Room Air Weight: 142 lb 13.753 oz Body Mass Index (BMI) 23.8 Finger Stick Blood Glucose 143 Intake and Output for Last 24 Hours 07/04/19 07/05/19 07/06/19 23:59 23:59 23:59 Intake Total 1560 / 1560 1950 / 1950 1170 / 1170 Output Total 300 / 300 1250 / 1250 Balance 1260 / 1260 700 / 700 1170 / 1170 General: Alert, Cooperative, No apparent distress, Disoriented HEENT: Atraumatic, PERRLA, EOMI, Normocephalic Oral: Moist Mucosa, No Gingival or Mucosal Lesions/ Ulcerations Neck: Supple, No JVD, Negative Carotid Bruits, Trachea Midline, Thyroid Normal Size and Texture Lungs: Clear to auscultation, Normal air movement, No rhonchi, No wheeze, No rales Cardiovascular: Regular rate, Regular Rhythm, Normal S1, Normal S2, PMI Normal Abdomen: Bowel Sounds Present, Soft, Non Tender, Non-Distended, No Hepato-splenomegaly Extremities: No clubbing, No cyanosis, No edema Skin: No rashes, No breakdown Lymphatic: No Cervical, Supraclavicular, or Inguinal Adenopathy Neurological: Cranial nerves II-XII grossly intact, - - Left-sided neglect, left-sided hemiparesis. Psych/Mental Status: Normal Affect, Appropriate Current Medications Acetaminophen (Tylenol Liquid) 1,000 mg GT TID [facility] Last Admin: 07/06/19 05:39 Dose: 1,000 mg Documented by: Apixaban (Eliquis) 5 mg GT BID [facility] Last Admin: 07/06/19 09:29 Dose: 5 mg Documented by: Atorvastatin Calcium (Lipitor) 40 mg GT QHS [facility] Last Admin: 07/05/19 19:50 Dose: 40 mg Documented by: Bisacodyl (Dulcolax) 10 mg RECTAL .PRN X 1 PRN PRN Reason: Constipation Calamine/Phenol (Calmoseptine Ointment) 1 applic TOPICAL BID [facility]; Protocol Last Admin: 07/06/19 09:30 Dose: 1 applicatio Documented by: Carvedilol (Coreg) 12.5 mg GT Q8 [facility] Last Admin: 07/06/19 05:39 Dose: 12.5 mg Documented by: Duloxetine HCl (Cymbalta) 60 mg PO DAILY [facility] Last Admin: 07/06/19 09:29 Dose: 60 mg Documented by: Enteral Nutritional Formula (Jevity 1.5) 240 ml GT 5X/DAY [facility] Last Admin: 07/06/19 09:28 Dose: 240 ml Documented by: Famotidine (Pepcid) 20 mg GT DAILY [facility] Last Admin: 07/06/19 09:31 Dose: 20 mg Documented by: Flecainide Acetate (Tambocor) 100 mg GT BID [facility] Last Admin: 07/06/19 09:31 Dose: 100 mg Documented by: Hydrochlorothiazide (Hctz) 25 mg GT DAILY [facility] Last Admin: 07/06/19 09:30 Dose: 25 mg Documented by: Lactobacillus Acidophilus (Acidophilus) 1 tablet GT BID [facility] Last Admin: 07/06/19 09:29 Dose: 1 tablet Documented by: Latanoprost (Xalatan Opthalmic) 1 drop EACH EYE DAILY@2200 [facility] Last Admin: 07/05/19 19:51 Dose: 1 drop Documented by: Loperamide HCl (Imodium) 2 mg PO Q4H PRN PRN PRN Reason: DIARRHEA/LOOSE STOOLS Last Admin: 07/06/19 09:29 Dose: 2 mg Documented by: Losartan Potassium (Cozaar) 100 mg GT DAILY [facility] Last Admin: 07/06/19 09:30 Dose: 100 mg Documented by: Magnesium Hydroxide (Milk Of Magnesia) 30 ml PO .PRN X 1 PRN PRN Reason: Constipation Multi-Ingredient Cream (Eucerin) 1 applic TOPICAL TID PRN PRN; Protocol PRN Reason: Dry Skin Potassium Chloride (Potassium Chl Soln) 20 meq GT DAILY [facility] Last Admin: 07/06/19 09:31 Dose: 20 meq Documented by: Quetiapine Fumarate (Seroquel) 25 mg GT DAILY@1999 [facility] Last Admin: 07/05/19 19:49 Dose: 25 mg Documented by: Sodium Chloride () 5 - 15 ml IV UD PRN PRN Reason: SALINE FLUSH Last Admin: 06/19/19 06:13 Dose: 10 ml Documented by: Medical Necessity - Tobacco Use Smoking Status: Never smoker Tobacco Use: Non-smoker Assessment/Plan All Active Problems (Last Updated 07/02/19 @ 12:59 by Yola Gonzalez MD) CVA (cerebral vascular accident) (Acute 05/2019) This is a 79 years old female patient admitted to inpatient rehabilitation unit after she suffered a right MCA stroke with 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 #1 acute right MCA stroke: With resultant left-sided intact, left-sided upper monoplegia and lower monoparesis, status post thrombectomy. Remained on Eliquis and statins. Her vital signs are stable. Weakness on the left side continue to improve very slowly. She is tolerating physical therapy. Plan to continue PT OT according to rehab team. #2 dysphagia: Status post PEG tube placement, on tube feeds, she is tolerating tube feeds. #3 recent history of aspiration pneumonia, completed treatment with IV Zosyn. Blood culture showed no growth in 5 days. Urine culture was negative. #4 paroxysmal atrial fibrillation: Rate is controlled, continue flecainide and Coreg for rate control, continue Eliquis for anticoagulation. #5 hypertension: Blood pressure stable, continue HCTZ, losartan and Coreg. #6 type 2 diabetes mellitus: Blood sugar stable, metformin has been on hold. #7 depression/anxiety: Continue Seroquel and Cymbalta. #8 DVT prophylaxis: Continue Eliquis. This note was generated with [employer] dictation software. It may contain incorrect words, spelling, and punctuation that were not noted in checking the note before signing. Code Visit Inpatient E&M: 80713 Subs Hosp L2
[2019-07-06 13:42] VITALS: BP 123/78; PULSE 63
[2019-07-06 13:43] VITALS: BMI 23.8
[2019-07-06 19:21] VITALS: BP 147/72; PULSE 62; RESP 16; TEMP 36.4; O2SAT 95
[2019-07-06] MEDS: Latanoprost 0.005% 1 Bottle 1 DRP EACH EYE (19:30)
[2019-07-06] MEDS: QUEtiapine 25 MG Tablet GT (19:32)
[2019-07-06] MEDS: Atorvastatin Calcium 40 MG Tablet GT (19:32)
[2019-07-06 22:21] VITALS: BMI 23.8
[2019-07-07] MEDS: Acetaminophen 650 MG/20 ML UDC 1000 MG GT ×3 (06:39→21:04)
[2019-07-07] MEDS: Carvedilol 12.5 MG Tablet GT ×3 (06:40→21:04)
[2019-07-07] MEDS: Jevity 1.5. 1,000 ML Bottle 240 ML GT ×5 (06:41→21:06)
[2019-07-07 07:32] VITALS: BP 148/98; PULSE 60; RESP 18; TEMP 36.8; O2SAT 95
[2019-07-07] MEDS: Flecainide 100 MG Tablet GT ×2 (08:55→21:04)
[2019-07-07] MEDS: Famotidine 20 MG Tablet GT (08:55)
[2019-07-07] MEDS: Losartan Potassium 100 MG Tablet GT (08:55)
[2019-07-07] MEDS: DULoxetine Hcl 60 MG Capsule PO (08:55)
[2019-07-07] MEDS: Menthol/Lanolin/Calamine/Znox 113 GM Tube 1 APPLIC TOPICAL ×2 (08:56→21:05)
[2019-07-07] MEDS: hydroCHLOROthiazide 25 MG Tablet GT (08:56)
[2019-07-07] MEDS: APIXABAN 5 MG TABLET GT ×2 (08:56→21:04)
[2019-07-07 09:53] VITALS: BMI 23.8
[2019-07-07 13:26] VITALS: BP 135/75; PULSE 60
[2019-07-07] MEDS: QUEtiapine 25 MG Tablet GT (19:37)
[2019-07-07 19:47] VITALS: BP 165/78; PULSE 59; RESP 18; TEMP 36.4; O2SAT 94
[2019-07-07] MEDS: Latanoprost 0.005% 1 Bottle 1 DRP EACH EYE (21:03)
[2019-07-07] MEDS: Atorvastatin Calcium 40 MG Tablet GT (21:04)
[2019-07-07 21:37] VITALS: BMI 23.8
[2019-07-08] MEDS: Acetaminophen 650 MG/20 ML UDC 1000 MG GT ×3 (05:56→19:51)
[2019-07-08] MEDS: Carvedilol 12.5 MG Tablet GT ×3 (05:56→19:51)
[2019-07-08] MEDS: Jevity 1.5. 1,000 ML Bottle 240 ML GT ×5 (05:56→19:56)
[2019-07-08 07:17] VITALS: BP 146/81; PULSE 62; RESP 18; TEMP 36.8; O2SAT 96
[2019-07-08 08:04] VITALS: BP 134/73
--- NOTE | 2019-07-08 10:34 | PCM.PROGNOTE ---
Subjective: Chief complaint: Follow-up after consultation for medical management following admission to inpatient rehabilitation unit. Patient seen and examined. No acute events overnight. Patient has been confused, not any worse than usual. No complaints. Her vital signs are stable. - Physical Exam Vitals/I&O's: Vital Signs Temp Pulse Resp BP Pulse Ox 98.2 F 62 18 134/73 H 96 07/08/19 07:17 07/08/19 07:17 07/08/19 07:17 07/08/19 08:04 07/08/19 07:17 Oxygen Delivery Method Room Air Weight: 142 lb 13.753 oz Body Mass Index (BMI) 23.8 Finger Stick Blood Glucose 143 Intake and Output for Last 24 Hours 07/07/19 07/07/19 07/08/19 00:59 23:59 23:59 Intake Total 390 / 390 Output Total 300 / 300 Balance 90 / 90 General: Alert, Cooperative, No apparent distress, Confused HEENT: Atraumatic, PERRLA, EOMI, Normocephalic Oral: Moist Mucosa, No Gingival or Mucosal Lesions/ Ulcerations Neck: Supple, No JVD, Negative Carotid Bruits, Trachea Midline, Thyroid Normal Size and Texture Lungs: Clear to auscultation, Normal air movement, No rhonchi, No wheeze, No rales, Diminished Cardiovascular: Regular rate, Regular Rhythm, Normal S1, Normal S2, PMI Normal Abdomen: Bowel Sounds Present, Soft, Non Tender, Non-Distended, No Hepato-splenomegaly Extremities: No clubbing, No cyanosis, No edema Skin: No rashes, No breakdown Lymphatic: No Cervical, Supraclavicular, or Inguinal Adenopathy Neurological: Cranial nerves II-XII grossly intact, - - Left-sided hemiparesis. Psych/Mental Status: Normal Affect, Appropriate Current Medications Acetaminophen (Tylenol Liquid) 1,000 mg GT TID [facility] Last Admin: 07/08/19 05:56 Dose: 1,000 mg Documented by: Apixaban (Eliquis) 5 mg GT BID [facility] Last Admin: 07/07/19 21:04 Dose: 5 mg Documented by: Atorvastatin Calcium (Lipitor) 40 mg GT QHS [facility] Last Admin: 07/07/19 21:04 Dose: 40 mg Documented by: Bisacodyl (Dulcolax) 10 mg RECTAL .PRN X 1 PRN PRN Reason: Constipation Calamine/Phenol (Calmoseptine Ointment) 1 applic TOPICAL BID [facility]; Protocol Last Admin: 07/07/19 21:05 Dose: 1 applicatio Documented by: Carvedilol (Coreg) 12.5 mg GT Q8 [facility] Last Admin: 07/08/19 05:56 Dose: 12.5 mg Documented by: Duloxetine HCl (Cymbalta) 60 mg PO DAILY [facility] Last Admin: 07/07/19 08:55 Dose: 60 mg Documented by: Enteral Nutritional Formula (Jevity 1.5) 240 ml GT 5X/DAY [facility] Last Admin: 07/08/19 05:56 Dose: 240 ml Documented by: Famotidine (Pepcid) 20 mg GT DAILY [facility] Last Admin: 07/07/19 08:55 Dose: 20 mg Documented by: Flecainide Acetate (Tambocor) 100 mg GT BID [facility] Last Admin: 07/07/19 21:04 Dose: 100 mg Documented by: Hydrochlorothiazide (Hctz) 25 mg GT DAILY [facility] Last Admin: 07/07/19 08:56 Dose: 25 mg Documented by: Lactobacillus Acidophilus (Acidophilus) 1 tablet GT BID [facility] Last Admin: 07/07/19 21:04 Dose: 1 tablet Documented by: Latanoprost (Xalatan Opthalmic) 1 drop EACH EYE DAILY@2200 [facility] Last Admin: 07/07/19 21:03 Dose: 1 drop Documented by: Loperamide HCl (Imodium) 2 mg PO Q4H PRN PRN PRN Reason: DIARRHEA/LOOSE STOOLS Last Admin: 07/06/19 09:29 Dose: 2 mg Documented by: Losartan Potassium (Cozaar) 100 mg GT DAILY [facility] Last Admin: 07/07/19 08:55 Dose: 100 mg Documented by: Magnesium Hydroxide (Milk Of Magnesia) 30 ml PO .PRN X 1 PRN PRN Reason: Constipation Multi-Ingredient Cream (Eucerin) 1 applic TOPICAL TID PRN PRN; Protocol PRN Reason: Dry Skin Potassium Chloride (Potassium Chl Soln) 20 meq GT DAILY [facility] Last Admin: 07/07/19 08:57 Dose: 20 meq Documented by: Quetiapine Fumarate (Seroquel) 25 mg GT DAILY@2000 [facility] Last Admin: 07/07/19 19:37 Dose: 25 mg Documented by: Sodium Chloride () 5 - 15 ml IV UD PRN PRN Reason: SALINE FLUSH Last Admin: 06/19/19 06:13 Dose: 10 ml Documented by: Medical Necessity - Tobacco Use Smoking Status: Never smoker Tobacco Use: Non-smoker Assessment/Plan All Active Problems (Last Updated 07/02/19 @ 12:59 by Yola Gonzalez MD) CVA (cerebral vascular accident) (Acute 05/2019) This is a 79 years old female patient admitted to inpatient rehabilitation unit after she suffered a right MCA stroke with 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 #1 acute right MCA stroke: With resultant left-sided intact, left-sided upper monoplegia and lower monoparesis, status post thrombectomy. Left-sided weakness has been waxing and waning. Remained on Eliquis and statins. Her vital signs are stable. Plan to continue PT OT according to rehab team. #2 dysphagia: Status post PEG tube placement, on tube feeds, she is tolerating tube feeds. Remained n.p.o. #3 recent history of aspiration pneumonia, completed treatment with IV Zosyn. Resolved. #4 paroxysmal atrial fibrillation: Rate is controlled, continue flecainide and Coreg for rate control, continue Eliquis for anticoagulation. #5 hypertension: Blood pressure stable, continue HCTZ, losartan and Coreg. #6 type 2 diabetes mellitus: Blood sugar stable, metformin has been on hold. #7 depression/anxiety: Continue Seroquel and Cymbalta. #8 DVT prophylaxis: Continue Eliquis. This note was generated with [employer] dictation software. It may contain incorrect words, spelling, and punctuation that were not noted in checking the note before signing. Code Visit Inpatient E&M: 25076 Subs Hosp L2
[2019-07-08] MEDS: Famotidine 20 MG Tablet GT (11:02)
[2019-07-08] MEDS: DULoxetine Hcl 60 MG Capsule PO (11:02)
[2019-07-08] MEDS: Losartan Potassium 100 MG Tablet GT (11:03)
[2019-07-08] MEDS: hydroCHLOROthiazide 25 MG Tablet GT (11:03)
[2019-07-08] MEDS: APIXABAN 5 MG TABLET GT ×2 (11:03→19:51)
[2019-07-08] MEDS: Flecainide 100 MG Tablet GT ×2 (11:03→19:52)
[2019-07-08] MEDS: Menthol/Lanolin/Calamine/Znox 113 GM Tube 1 APPLIC TOPICAL ×2 (11:14→19:51)
--- NOTE | 2019-07-08 11:47 | CASEMGMT ---
Social Work IDT met with patient, son and two daughters for Team Meeting. Discussed patient's progress in therapy. Pt is max assist from edge of bed, max x2 stand pivot transfers, max x1 and w/c follow. Pt is having better left foot placement, focusing more and following directions better. Pt is set up for grooming, max for bathing total for toileting tasks x2 for balance and hygiene. Pt has not made significant overall progress physically. ST is seeing some progress with scanning abilities and left sided visual neglect; however, still requiring mod to max cues to locate items on left side. Pt is able to look left and recognize arm and leg. ST will continue work on awareness to own body. Pt is more awake and alert, confusion is slightly improving, but still having hallucinations of bugs. Pt is still wearing sling and physician ordering testing to left shoulder. Explained insurance update 07/09, and continued stay is not guaranteed. First choice is [facility] whom will submit precert when cut from RU. Will continue to follow. Shannan Mcclellan, [employer] TECHNICIAN
--- NOTE | 2019-07-08 12:07 | PN.NEURO_ITS ---
Subjective: No issues overnight. Case discussed with the nursing staff. Staffed in the team meeting today. All questions were answered. Further therapy details per PT/OT/ST notes. - Physical Exam Vitals/I&O's: Vital Signs Temp Pulse Resp BP Pulse Ox 98.2 F 62 18 134/73 H 96 07/08/19 07:17 07/08/19 07:17 07/08/19 07:17 07/08/19 08:04 07/08/19 07:17 Oxygen Delivery Method Room Air Weight: 64.8 kg Body Mass Index (BMI) 23.8 Finger Stick Blood Glucose 143 Intake and Output for Last 24 Hours 07/07/19 07/07/19 07/08/19 00:59 23:59 23:59 Intake Total 390 / 390 Output Total 300 / 300 Balance 90 / 90 General: - HEENT: Normocephalic - Conscious awake Neck: Supple Lungs: Normal air movement Cardiovascular: Normal S1, Normal S2 Abdomen: Bowel Sounds Present Extremities: No cyanosis Neurological: - - Conscious, alert, CN II to XII grossly intact except 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, power 5/5 right upper and lower extremities, 0/5 Left UE, 3/5 left LE, plantars right flexor, left mute, no pronator drift, left sensory loss with left sensory neglect, no cerebellar signs, gait deferred, reflexes + B/L B/S/T/K/A, dysarthria +,No NR, fundus not visualized Psych/Mental Status: Normal Affect Current Medications Acetaminophen (Tylenol Liquid) 1,000 mg GT TID [facility] Last Admin: 07/08/19 05:56 Dose: 1,000 mg Documented by: Apixaban (Eliquis) 5 mg GT BID [facility] Last Admin: 07/08/19 11:03 Dose: 5 mg Documented by: Atorvastatin Calcium (Lipitor) 40 mg GT QHS [facility] Last Admin: 07/07/19 21:04 Dose: 40 mg Documented by: Bisacodyl (Dulcolax) 10 mg RECTAL .PRN X 1 PRN PRN Reason: Constipation Calamine/Phenol (Calmoseptine Ointment) 1 applic TOPICAL BID [facility]; Protocol Last Admin: 07/08/19 11:14 Dose: 1 applicatio Documented by: Carvedilol (Coreg) 12.5 mg GT Q8 [facility] Last Admin: 07/08/19 05:56 Dose: 12.5 mg Documented by: Duloxetine HCl (Cymbalta) 60 mg PO DAILY [facility] Last Admin: 07/08/19 11:02 Dose: 60 mg Documented by: Enteral Nutritional Formula (Jevity 1.5) 240 ml GT 5X/DAY [facility] Last Admin: 07/08/19 11:36 Dose: 240 ml Documented by: Famotidine (Pepcid) 20 mg GT DAILY [facility] Last Admin: 07/08/19 11:02 Dose: 20 mg Documented by: Flecainide Acetate (Tambocor) 100 mg GT BID [facility] Last Admin: 07/08/19 11:03 Dose: 100 mg Documented by: Hydrochlorothiazide (Hctz) 25 mg GT DAILY [facility] Last Admin: 07/08/19 11:03 Dose: 25 mg Documented by: Lactobacillus Acidophilus (Acidophilus) 1 tablet GT BID [facility] Last Admin: 07/08/19 11:03 Dose: 1 tablet Documented by: Latanoprost (Xalatan Opthalmic) 1 drop EACH EYE DAILY@2199 [facility] Last Admin: 07/07/19 21:03 Dose: 1 drop Documented by: Loperamide HCl (Imodium) 2 mg PO Q4H PRN PRN PRN Reason: DIARRHEA/LOOSE STOOLS Last Admin: 07/06/19 09:29 Dose: 2 mg Documented by: Losartan Potassium (Cozaar) 100 mg GT DAILY [facility] Last Admin: 07/08/19 11:03 Dose: 100 mg Documented by: Magnesium Hydroxide (Milk Of Magnesia) 30 ml PO .PRN X 1 PRN PRN Reason: Constipation Multi-Ingredient Cream (Eucerin) 1 applic TOPICAL TID PRN PRN; Protocol PRN Reason: Dry Skin Potassium Chloride (Potassium Chl Soln) 20 meq GT DAILY [facility] Last Admin: 07/08/19 11:02 Dose: 20 meq Documented by: Quetiapine Fumarate (Seroquel) 25 mg GT DAILY@1999 [facility] Last Admin: 07/07/19 19:37 Dose: 25 mg Documented by: Sodium Chloride () 5 - 15 ml IV UD PRN PRN Reason: SALINE FLUSH Last Admin: 06/19/19 06:13 Dose: 10 ml Documented by: Medical Necessity - Tobacco Use Smoking Status: Never smoker Tobacco Use: Non-smoker Assessment/Plan All Active Problems (Last Updated 07/02/19 @ 12:59 by Yola Gonzalez MD) CVA (cerebral vascular accident) (Acute 05/2019) The patient is a 79 year old F with PMH of HTN, HLD, CAD, DM type II, A-fib with RVR, pacemaker, RUDY, anxiety and depression admitted to [facility] on 06/06/2019 with debility secondary to right MCA with right M1 occlusion s/p post thrombectomy, for > 3 hours of therapy daily with a goal of returning home at or near her prior level of independence. She presented to [facility] ER on 05/23/2019 due to patient was found laying on the ground in her garage with left-sided deficits. NIH was 20. CT of brain suggestive of thrombus in the right MCA and an early infarct in the right MCA territory. CTA head and neck with contrast impression right MCA occlusion. No TPA and patient was transferred to [facility]. On 05/23/19, neurosurgeon Dr. Doll formed the right MCA thrombectomy, due to right [place] occlusion. Postprocedural right ICA arteriogram demonstrated TICI?2b revascularization. CT of head without contrast on 06/04/2019 right MCA territory infarct with decrease edema noted in resolution of previously noted mass-effect of the right lateral ventricle and resolution of previously noted midline shift. Scattered hemorrhage within the infarct is less well. No new hemorrhage is identified.. Unable to obtain MRI due to pacemaker. TTE done which showed ejection fraction 65 to 70% and RVSP 41-45 mmHg. LDL 116, HgbA1c 6.5%. Prior to hospitalization patient was on Xarelto 15 mg daily for A. fib, was discontinued by [facility]. Plan - PT for gait stability - OT for ADLs - ST - PEG placement 06/13/19 - Right MCA infarct post thrombectomy on statin, asa, antihypertensives. Repeat CT head 06/10/2019 shows stable right MCA stroke with no new hemorrhage. Eliquis 5 mg p.o. twice daily started from 06/14/2019 post PEG placement, stroke initially occurred on 05/23/2019. Aspirin stopped once Eliquis was started, as per patient she was not on aspirin at home at baseline. - HTN on Losartan, HCTZ and Coreg. Goal blood pressure less than 130/80, avoid hypotension - A-fib- on flecainide xeralto discontinued by [facility]. Here started on Eliquis 5 mg p.o. twice daily from 06/14/2019 after PEG placed on 06/13/19, stroke initially occurred on 05/23/2019. - DM- metformin on hold, accuchecks ac/hs, HgbA1c 6.5% - S/P PEG- on jevity and sterile water flushes - Left shoulder in sling-possible shoulder dislocation, per PT/OT could have occurred few days ago, will get left shoulder Xray and Orthopedic consult. Further management per orthopedics recommendations - HLD on lipitor LDL 116 - RUDY stable 06/15/19 H/H 10.3/31.7 - Anxiety/depression on cymbalta - Insomnia/visual hallucinations-on Seroquel - GI/DVT prophylaxis pepcid/Eliquis, knee high nataly hose - Further medical management per hospitalist-consult - Analgesics as needed - Bowel protocol - F/U neurosurgeon Dr. Harrison, PCP, neurology, cardiology Code Visit Inpatient E&M: 31396 [facility] Hosp L3
--- NOTE | 2019-07-08 12:30 | RAD_ITS ---
STUDY: X-RAY - LEFT SHOULDER REASON FOR EXAM: Pain, fall. TECHNIQUE: 4 view(s) of the shoulder. COMPARISON: None. FINDINGS: Normal glenohumeral articulation. There is acromioclavicular arthrosis. Normal acromion. Normal humeral head and visualized proximal humerus. The soft tissue structures are unremarkable. Normal visualized pulmonary apex. RAD/Shoulder min 2 Views IMPRESSION: Acromioclavicular arthrosis. Electronically Signed: Kit Garcia MD at 12:58 EST Tel , Service support ,
[2019-07-08 14:39] VITALS: BMI 23.8
--- NOTE | 2019-07-08 14:50 | NURSING ---
Addendum entered by Ivet Mukherjee 07/08/19 15:45: Dr Barrientos returned call. New order for HGB A1C Original Note: Paged sent to Dr Kaushik house/Dr Leger request to see if pt needs to be on metformin. Dr's notes have it on hold.
[2019-07-08 16:57] LABS: Hemoglobin A1c 6.4 % (4.2-6.3)
[2019-07-08] MEDS: Magnesium Hydroxide 30 ML UDC PO (17:32)
[2019-07-08 18:50] VITALS: BP 155/85; PULSE 60; RESP 16; TEMP 36.5; O2SAT 93
[2019-07-08] MEDS: QUEtiapine 25 MG Tablet GT (19:51)
[2019-07-08] MEDS: Atorvastatin Calcium 40 MG Tablet GT (19:51)
[2019-07-08] MEDS: Latanoprost 0.005% 1 Bottle 1 DRP EACH EYE (19:52)
[2019-07-09 02:56] VITALS: BMI 23.8
[2019-07-09] MEDS: Carvedilol 12.5 MG Tablet GT ×3 (05:32→21:10)
[2019-07-09] MEDS: Jevity 1.5. 1,000 ML Bottle 240 ML GT ×5 (05:33→21:28)
[2019-07-09] MEDS: Acetaminophen 650 MG/20 ML UDC 1000 MG GT ×3 (05:33→21:11)
[2019-07-09 06:32] VITALS: BP 138/73; PULSE 60
[2019-07-09 08:15] VITALS: BP 118/62; PULSE 64; RESP 16; TEMP 36.3; O2SAT 94
[2019-07-09] MEDS: DULoxetine Hcl 60 MG Capsule PO (09:18)
[2019-07-09] MEDS: Famotidine 20 MG Tablet GT (09:18)
[2019-07-09] MEDS: APIXABAN 5 MG TABLET GT ×2 (09:18→21:10)
[2019-07-09] MEDS: Losartan Potassium 100 MG Tablet GT (09:18)
[2019-07-09] MEDS: Flecainide 100 MG Tablet GT ×2 (09:18→21:10)
[2019-07-09] MEDS: Menthol/Lanolin/Calamine/Znox 113 GM Tube 1 APPLIC TOPICAL ×2 (09:19→21:32)
[2019-07-09] MEDS: hydroCHLOROthiazide 25 MG Tablet GT (09:21)
--- NOTE | 2019-07-09 12:48 | PCM.PN.NEU ---
Subjective: No issues overnight. Care discussed with the nursing staff. - Physical Exam Vitals/I&O's: Vital Signs Temp Pulse Resp BP Pulse Ox 97.4 F L 64 16 118/62 94 07/09/19 08:15 07/09/19 08:15 07/09/19 08:15 07/09/19 08:15 07/09/19 08:15 Oxygen Delivery Method Room Air Weight: 64.58 kg Body Mass Index (BMI) 23.8 Finger Stick Blood Glucose 143 Intake and Output for Last 24 Hours 07/07/19 07/08/19 07/09/19 23:59 23:59 23:59 Intake Total 1580 / 1580 1320 / 1320 Output Total 700 / 700 Balance 880 / 880 1320 / 1320 General: Alert HEENT: Normocephalic Neck: Supple Lungs: Clear to auscultation, Normal air movement Cardiovascular: Normal S1, Normal S2 Abdomen: Bowel Sounds Present Extremities: No cyanosis Neurological: - - Conscious, alert, CN II to XII grossly intact except 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, power 5/5 right upper and lower extremities, 2/5 Left UE, 3/5 left LE, plantars right flexor, left mute, no pronator drift, left sensory loss with left sensory neglect, no cerebellar signs, gait deferred, reflexes + B/L B/S/T/K/A, dysarthria +,No NR, fundus not visualized Psych/Mental Status: Normal Affect Laboratory Results 07/08/19 16:04: Hemoglobin A1c 6.4 H Current Medications Acetaminophen (Tylenol Liquid) 1,000 mg GT TID [facility] Last Admin: 07/09/19 05:33 Dose: 1,000 mg Documented by: Apixaban (Eliquis) 5 mg GT BID [facility] Last Admin: 07/09/19 09:18 Dose: 5 mg Documented by: Atorvastatin Calcium (Lipitor) 40 mg GT QHS [facility] Last Admin: 07/08/19 19:51 Dose: 40 mg Documented by: Bisacodyl (Dulcolax) 10 mg RECTAL .PRN X 1 PRN PRN Reason: Constipation Calamine/Phenol (Calmoseptine Ointment) 1 applic TOPICAL BID [facility]; Protocol Last Admin: 07/09/19 09:19 Dose: 1 applicatio Documented by: Carvedilol (Coreg) 12.5 mg GT Q8 [facility] Last Admin: 07/09/19 05:32 Dose: 12.5 mg Documented by: Duloxetine HCl (Cymbalta) 60 mg PO DAILY [facility] Last Admin: 07/09/19 09:18 Dose: 60 mg Documented by: Enteral Nutritional Formula (Jevity 1.5) 240 ml GT 5X/DAY [facility] Last Admin: 07/09/19 09:18 Dose: 240 ml Documented by: Famotidine (Pepcid) 20 mg GT DAILY [facility] Last Admin: 07/09/19 09:18 Dose: 20 mg Documented by: Flecainide Acetate (Tambocor) 100 mg GT BID [facility] Last Admin: 07/09/19 09:18 Dose: 100 mg Documented by: Hydrochlorothiazide (Hctz) 25 mg GT DAILY [facility] Last Admin: 07/09/19 09:21 Dose: 25 mg Documented by: Lactobacillus Acidophilus (Acidophilus) 1 tablet GT BID [facility] Last Admin: 07/09/19 09:18 Dose: 1 tablet Documented by: Latanoprost (Xalatan Opthalmic) 1 drop EACH EYE DAILY@2199 [facility] Last Admin: 07/08/19 19:52 Dose: 1 drop Documented by: Loperamide HCl (Imodium) 2 mg PO Q4H PRN PRN PRN Reason: DIARRHEA/LOOSE STOOLS Last Admin: 07/06/19 09:29 Dose: 2 mg Documented by: Losartan Potassium (Cozaar) 100 mg GT DAILY [facility] Last Admin: 07/09/19 09:18 Dose: 100 mg Documented by: Magnesium Hydroxide (Milk Of Magnesia) 30 ml PO .PRN X 1 PRN PRN Reason: Constipation Last Admin: 07/08/19 17:32 Dose: 30 ml Documented by: Multi-Ingredient Cream (Eucerin) 1 applic TOPICAL TID PRN PRN; Protocol PRN Reason: Dry Skin Potassium Chloride (Potassium Chl Soln) 20 meq GT DAILY [facility] Last Admin: 07/09/19 09:18 Dose: 20 meq Documented by: Quetiapine Fumarate (Seroquel) 25 mg GT DAILY@1999 [facility] Last Admin: 07/08/19 19:51 Dose: 25 mg Documented by: Sodium Chloride () 5 - 15 ml IV UD PRN PRN Reason: SALINE FLUSH Last Admin: 06/19/19 06:13 Dose: 10 ml Documented by: Medical Necessity - Tobacco Use Smoking Status: Never smoker Tobacco Use: Non-smoker Assessment/Plan All Active Problems (Last Reviewed 07/09/19 @ 07:57 by Kathi Shields) CVA (cerebral vascular accident) (Acute 05/2019) The patient is a 79 year old F with PMH of HTN, HLD, CAD, DM type II, A-fib with RVR, pacemaker, RUDY, anxiety and depression admitted to [facility] on 06/06/2019 with debility secondary to right MCA with right M1 occlusion s/p post thrombectomy, for > 3 hours of therapy daily with a goal of returning home at or near her prior level of independence. She presented to [facility] ER on 05/23/2019 due to patient was found laying on the ground in her garage with left-sided deficits. NIH was 20. CT of brain suggestive of thrombus in the right MCA and an early infarct in the right MCA territory. CTA head and neck with contrast impression right MCA occlusion. No TPA and patient was transferred to [facility]. On 05/23/19, neurosurgeon Dr. Doll formed the right MCA thrombectomy, due to right [place] occlusion. Postprocedural right ICA arteriogram demonstrated TICI?2b revascularization. CT of head without contrast on 06/04/2019 right MCA territory infarct with decrease edema noted in resolution of previously noted mass-effect of the right lateral ventricle and resolution of previously noted midline shift. Scattered hemorrhage within the infarct is less well. No new hemorrhage is identified.. Unable to obtain MRI due to pacemaker. TTE done which showed ejection fraction 65 to 70% and RVSP 41-45 mmHg. LDL 116, HgbA1c 6.5%. Prior to hospitalization patient was on Xarelto 15 mg daily for A. fib, was discontinued by [facility]. Plan - PT for gait stability - OT for ADLs - ST - PEG placement 06/13/19 - Right MCA infarct post thrombectomy on statin, asa, antihypertensives. Repeat CT head 06/10/2019 shows stable right MCA stroke with no new hemorrhage. Eliquis 5 mg p.o. twice daily started from 06/14/2019 post PEG placement, stroke initially occurred on 05/23/2019. Aspirin stopped once Eliquis was started, as per patient she was not on aspirin at home at baseline. - HTN on Losartan, HCTZ and Coreg. Goal blood pressure less than 130/80, avoid hypotension - A-fib- on flecainide xeralto discontinued by [facility]. Here started on Eliquis 5 mg p.o. twice daily from 06/14/2019 after PEG placed on 06/13/19, stroke initially occurred on 05/23/2019. - DM- metformin on hold, accuchecks ac/hs, HgbA1c 6.4% - S/P PEG- on jevity and sterile water flushes - Left shoulder in sling-possible shoulder dislocation, per PT/OT could have occurred few days ago, left shoulder Xray-report pending and Orthopedic consult. Further management per orthopedics recommendations - HLD on lipitor LDL 116 - RUDY stable 06/15/19 H/H 10.3/31.7 - Anxiety/depression on cymbalta - Insomnia/visual hallucinations-on Seroquel - GI/DVT prophylaxis pepcid/Eliquis, knee high nataly hose - Further medical management per hospitalist-consult - Analgesics as needed - Bowel protocol - F/U neurosurgeon Dr. Harrison, PCP, neurology, cardiology
[2019-07-09 13:27] VITALS: BMI 23.8
--- NOTE | 2019-07-09 13:35 | PCM.PN.HOSP ---
Subjective: Seen and examined. Patient has weakness of left upper extremity, monoplegia and left lower extremity weakness. Patient also has left shoulder AC joint arthrosis as revealed by x-ray of shoulder. Vitals/I&O's: Vital Signs Temp Pulse Resp BP Pulse Ox 97.4 F L 64 16 118/62 94 07/09/19 08:15 07/09/19 08:15 07/09/19 08:15 07/09/19 08:15 07/09/19 08:15 Oxygen Delivery Method Room Air Weight: 142 lb 6 oz Body Mass Index (BMI) 23.8 Finger Stick Blood Glucose 143 Intake and Output for Last 24 Hours 07/07/19 07/08/19 07/09/19 23:59 23:59 23:59 Intake Total 1580 / 1580 1320 / 1320 Output Total 700 / 700 Balance 880 / 880 1320 / 1320 General: Alert, Oriented x3, Cooperative HEENT: Atraumatic, PERRLA, EOMI, Normocephalic Neck: Supple, No JVD, Negative Carotid Bruits Lungs: Clear to auscultation, Normal air movement, No rhonchi, No wheeze, No rales Cardiovascular: Regular rate, Regular Rhythm, Normal S1, Normal S2, No murmurs Abdomen: Bowel Sounds Present, Soft, Non Tender, Non-Distended Extremities: No edema, Capillary Refill Less than 3 Seconds Skin: No rashes, No breakdown Musculoskeletal: No Tenderness to Palpation of Joints or Extremities, Arthritic Changes, Muscle Wasting Neurological: Cranial nerves II-XII grossly intact, - - Left upper extremity weakness, power 2/5 Left lower extremity, 4/5 Psych/Mental Status: Normal Affect, Appropriate Laboratory Results 07/08/19 16:04: Hemoglobin A1c 6.4 H Current Medications Acetaminophen (Tylenol Liquid) 1,000 mg GT TID REPLACED BY [facility] Last Admin: 07/09/19 05:33 Dose: 1,000 mg Documented by: Apixaban (Eliquis) 5 mg GT BID REPLACED BY [facility] Last Admin: 07/09/19 09:18 Dose: 5 mg Documented by: Atorvastatin Calcium (Lipitor) 40 mg GT QHS REPLACED BY [facility] Last Admin: 07/08/19 19:51 Dose: 40 mg Documented by: Bisacodyl (Dulcolax) 10 mg RECTAL .PRN X 1 PRN PRN Reason: Constipation Calamine/Phenol (Calmoseptine Ointment) 1 applic TOPICAL BID REPLACED BY [facility]; Protocol Last Admin: 07/09/19 09:19 Dose: 1 applicatio Documented by: Carvedilol (Coreg) 12.5 mg GT Q8 REPLACED BY [facility] Last Admin: 07/09/19 05:32 Dose: 12.5 mg Documented by: Duloxetine HCl (Cymbalta) 60 mg PO DAILY REPLACED BY [facility] Last Admin: 07/09/19 09:18 Dose: 60 mg Documented by: Enteral Nutritional Formula (Jevity 1.5) 240 ml GT 5X/DAY REPLACED BY [facility] Last Admin: 07/09/19 09:18 Dose: 240 ml Documented by: Famotidine (Pepcid) 20 mg GT DAILY REPLACED BY [facility] Last Admin: 07/09/19 09:18 Dose: 20 mg Documented by: Flecainide Acetate (Tambocor) 100 mg GT BID REPLACED BY [facility] Last Admin: 07/09/19 09:18 Dose: 100 mg Documented by: Hydrochlorothiazide (Hctz) 25 mg GT DAILY REPLACED BY [facility] Last Admin: 07/09/19 09:21 Dose: 25 mg Documented by: Lactobacillus Acidophilus (Acidophilus) 1 tablet GT BID REPLACED BY [facility] Last Admin: 07/09/19 09:18 Dose: 1 tablet Documented by: Latanoprost (Xalatan Opthalmic) 1 drop EACH EYE DAILY@2200 REPLACED BY [facility] Last Admin: 07/08/19 19:52 Dose: 1 drop Documented by: Loperamide HCl (Imodium) 2 mg PO Q4H PRN PRN PRN Reason: DIARRHEA/LOOSE STOOLS Last Admin: 07/06/19 09:29 Dose: 2 mg Documented by: Losartan Potassium (Cozaar) 100 mg GT DAILY REPLACED BY [facility] Last Admin: 07/09/19 09:18 Dose: 100 mg Documented by: Magnesium Hydroxide (Milk Of Magnesia) 30 ml PO .PRN X 1 PRN PRN Reason: Constipation Last Admin: 07/08/19 17:32 Dose: 30 ml Documented by: Multi-Ingredient Cream (Eucerin) 1 applic TOPICAL TID PRN PRN; Protocol PRN Reason: Dry Skin Potassium Chloride (Potassium Chl Soln) 20 meq GT DAILY REPLACED BY [facility] Last Admin: 07/09/19 09:18 Dose: 20 meq Documented by: Quetiapine Fumarate (Seroquel) 25 mg GT DAILY@2000 [facility] Last Admin: 07/08/19 19:51 Dose: 25 mg Documented by: Sodium Chloride () 5 - 15 ml IV UD PRN PRN Reason: SALINE FLUSH Last Admin: 06/19/19 06:13 Dose: 10 ml Documented by: Medical Necessity - Tobacco Use Smoking Status: Never smoker Tobacco Use: Non-smoker Assessment/Plan All Active Problems (Last Reviewed 07/09/19 @ 07:57 by Kathi Shields) CVA (cerebral vascular accident) (Acute 05/2019) This is a 79 years old female patient admitted to inpatient rehabilitation unit after she suffered a right MCA stroke with 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 #1 acute right MCA stroke: Patient has left upper extremity weakness which did not show consistent improvement. Left lower extremity weakness has improved. Patient has a right MCA thrombosis infarct status post thrombectomy. Remained on Eliquis and statins. Her vital signs are stable. Plan to continue PT OT according to rehab team. Left shoulder x-ray shows AC joint arthrosis #2 Oropharyngeal dysphagia secondary to stroke: Status post PEG tube placement, on tube feeds, she is tolerating tube feeds. Remained n.p.o. modified barium swallow shows penetration and aspiration. #3 recent history of aspiration pneumonia, completed treatment with IV Zosyn. Resolved. #4 paroxysmal atrial fibrillation: Rate is controlled, continue flecainide and Coreg for rate control, continue Eliquis for anticoagulation. #5 hypertension: Blood pressure stable less than 140/77. Blood pressure stable, continue HCTZ, losartan and Coreg. #6 type 2 diabetes mellitus: A1c 6.4. Accu-Cheks near-normal. Metformin on hold #7 depression/anxiety: Continue Seroquel and Cymbalta. #8 DVT prophylaxis: Continue Eliquis. Laboratory Results 07/08/19 16:04: Hemoglobin A1c 6.4 H Clinical Impression(s) from Imaging Studies Brain CT 06/10/19 09:59 IMPRESSION: Further evolution of the subacute right middle cerebral artery infarct. No acute hemorrhage. Videofluoroscopic Swallow 06/11/19 00:00 IMPRESSION: Penetration and aspiration was noted with thin barium through barium and pudding. The swallow study findings were discussed with the patient by the speech pathologist at the conclusion of the examination. Please see speech pathology report for more information and recommendations. The procedure was performed by the speech therapist under the direct supervision of Dr. Curry. Chest X-Ray 06/14/19 23:45 IMPRESSION: Mild new linear left lower lobe pulmonary opacities, mild infiltrates and subsegmental atelectasis possible aspiration Mild cardiomegaly unchanged Cardiac pacemaker Minimal contrast in colon from prior swallowing study Abdomen X-Ray 06/15/19 00:39 IMPRESSION: No acute abdominal abnormality is radiographically apparent. Brain CT 06/22/19 08:00 IMPRESSION: Expected evolution of right MCA territory infarction. No midline shift or hemorrhagic transformation. Code Visit Inpatient E&M: 17480 Subs Hosp L2
[2019-07-09 14:15] VITALS: BP 140/77; PULSE 63
[2019-07-09 19:51] VITALS: BP 158/91; PULSE 61; RESP 16; TEMP 36.3; O2SAT 94
[2019-07-09] MEDS: QUEtiapine 25 MG Tablet GT (21:10)
[2019-07-09] MEDS: Atorvastatin Calcium 40 MG Tablet GT (21:10)
[2019-07-09] MEDS: Latanoprost 0.005% 1 Bottle 1 DRP EACH EYE (21:11)
[2019-07-10 01:28] VITALS: BMI 23.8
[2019-07-10] MEDS: Acetaminophen 650 MG/20 ML UDC 1000 MG GT ×3 (05:22→20:02)
[2019-07-10] MEDS: Carvedilol 12.5 MG Tablet GT ×3 (05:22→20:00)
[2019-07-10] MEDS: Jevity 1.5. 1,000 ML Bottle 240 ML GT ×5 (05:26→20:01)
[2019-07-10 07:19] VITALS: BP 147/87; PULSE 60; RESP 16; TEMP 36.8; O2SAT 92
[2019-07-10] MEDS: Flecainide 100 MG Tablet GT ×2 (09:55→20:01)
[2019-07-10] MEDS: hydroCHLOROthiazide 25 MG Tablet GT (09:55)
[2019-07-10] MEDS: Famotidine 20 MG Tablet GT (09:55)
[2019-07-10] MEDS: Losartan Potassium 100 MG Tablet GT (09:55)
[2019-07-10] MEDS: APIXABAN 5 MG TABLET GT ×2 (09:56→20:00)
[2019-07-10] MEDS: DULoxetine Hcl 60 MG Capsule PO (09:56)
[2019-07-10] MEDS: Menthol/Lanolin/Calamine/Znox 113 GM Tube 1 APPLIC TOPICAL ×2 (09:56→19:59)
[2019-07-10] MEDS: Loperamide 2 MG Capsule PO (09:56)
[2019-07-10 13:26] VITALS: BP 167/95; PULSE 62
--- NOTE | 2019-07-10 13:51 | PCM.PN.NEU ---
Subjective: No issues overnight. Care discussed with the nursing staff. - Physical Exam Vitals/I&O's: Vital Signs Temp Pulse Resp BP Pulse Ox 98.3 F 62 16 167/95 H 92 07/10/19 07:19 07/10/19 13:26 07/10/19 07:19 07/10/19 13:26 07/10/19 07:19 Oxygen Delivery Method Room Air Weight: 65.5 kg Body Mass Index (BMI) 23.8 Finger Stick Blood Glucose 143 Intake and Output for Last 24 Hours 07/08/19 07/09/19 07/10/19 23:59 23:59 23:59 Intake Total 1580 / 1580 2990 / 2990 390 / 390 Output Total 700 / 700 300 / 300 300 / 300 Balance 880 / 880 2690 / 2690 90 / 90 General: Alert HEENT: Normocephalic Neck: Supple Lungs: Normal air movement Cardiovascular: Normal S1, Normal S2 Abdomen: Bowel Sounds Present Extremities: No cyanosis Neurological: - - Conscious, alert, CN II to XII grossly intact except 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, power 5/5 right upper and lower extremities, 2/5 Left UE, 3/5 left LE, plantars right flexor, left mute, no pronator drift, left sensory loss with left sensory neglect, no cerebellar signs, gait deferred, reflexes + B/L B/S/T/K/A, dysarthria +,No NR, fundus not visualized Psych/Mental Status: Normal Affect Current Medications Acetaminophen (Tylenol Liquid) 1,000 mg GT TID [facility] Last Admin: 07/10/19 13:38 Dose: 1,000 mg Documented by: Apixaban (Eliquis) 5 mg GT BID [facility] Last Admin: 07/10/19 09:56 Dose: 5 mg Documented by: Atorvastatin Calcium (Lipitor) 40 mg GT QHS [facility] Last Admin: 07/09/19 21:10 Dose: 40 mg Documented by: Bisacodyl (Dulcolax) 10 mg RECTAL .PRN X 1 PRN PRN Reason: Constipation Calamine/Phenol (Calmoseptine Ointment) 1 applic TOPICAL BID [facility]; Protocol Last Admin: 07/10/19 09:56 Dose: 1 applicatio Documented by: Carvedilol (Coreg) 12.5 mg GT Q8 [facility] Last Admin: 07/10/19 13:26 Dose: 12.5 mg Documented by: Duloxetine HCl (Cymbalta) 60 mg PO DAILY [facility] Last Admin: 07/10/19 09:56 Dose: 60 mg Documented by: Enteral Nutritional Formula (Jevity 1.5) 240 ml GT 5X/DAY [facility] Last Admin: 07/10/19 13:26 Dose: 240 ml Documented by: Famotidine (Pepcid) 20 mg GT DAILY [facility] Last Admin: 07/10/19 09:55 Dose: 20 mg Documented by: Flecainide Acetate (Tambocor) 100 mg GT BID [facility] Last Admin: 07/10/19 09:55 Dose: 100 mg Documented by: Hydrochlorothiazide (Hctz) 25 mg GT DAILY [facility] Last Admin: 07/10/19 09:55 Dose: 25 mg Documented by: Lactobacillus Acidophilus (Acidophilus) 1 tablet GT BID [facility] Last Admin: 07/10/19 09:56 Dose: 1 tablet Documented by: Latanoprost (Xalatan Opthalmic) 1 drop EACH EYE DAILY@2199 [facility] Last Admin: 07/09/19 21:11 Dose: 1 drop Documented by: Loperamide HCl (Imodium) 2 mg PO Q4H PRN PRN PRN Reason: DIARRHEA/LOOSE STOOLS Last Admin: 07/10/19 09:56 Dose: 2 mg Documented by: Losartan Potassium (Cozaar) 100 mg GT DAILY [facility] Last Admin: 07/10/19 09:55 Dose: 100 mg Documented by: Magnesium Hydroxide (Milk Of Magnesia) 30 ml PO .PRN X 1 PRN PRN Reason: Constipation Last Admin: 07/08/19 17:32 Dose: 30 ml Documented by: Multi-Ingredient Cream (Eucerin) 1 applic TOPICAL TID PRN PRN; Protocol PRN Reason: Dry Skin Potassium Chloride (Potassium Chl Soln) 20 meq GT DAILY [facility] Last Admin: 07/10/19 09:55 Dose: 20 meq Documented by: Quetiapine Fumarate (Seroquel) 25 mg GT DAILY@1999 [facility] Last Admin: 07/09/19 21:10 Dose: 25 mg Documented by: Sodium Chloride () 5 - 15 ml IV UD PRN PRN Reason: SALINE FLUSH Last Admin: 06/19/19 06:13 Dose: 10 ml Documented by: STROKE Vital Signs/Narrative: Vital Signs Pulse BP 07/10/19 13:26 62 167/95 H Medical Necessity - Tobacco Use Smoking Status: Never smoker Tobacco Use: Non-smoker Assessment/Plan All Active Problems (Last Reviewed 07/09/19 @ 07:57 by Kathi Shields) CVA (cerebral vascular accident) (Acute 05/2019) The patient is a 79 year old F with PMH of HTN, HLD, CAD, DM type II, A-fib with RVR, pacemaker, RUDY, anxiety and depression admitted to [facility] on 06/06/2019 with debility secondary to right MCA with right M1 occlusion s/p post thrombectomy, for > 3 hours of therapy daily with a goal of returning home at or near her prior level of independence. She presented to [facility] ER on 05/23/2019 due to patient was found laying on the ground in her garage with left-sided deficits. NIH was 20. CT of brain suggestive of thrombus in the right MCA and an early infarct in the right MCA territory. CTA head and neck with contrast impression right MCA occlusion. No TPA and patient was transferred to [facility]. On 05/23/19, neurosurgeon Dr. Doll formed the right MCA thrombectomy, due to right MS occlusion. Postprocedural right ICA arteriogram demonstrated TICI?2b revascularization. CT of head without contrast on 06/04/2019 right MCA territory infarct with decrease edema noted in resolution of previously noted mass-effect of the right lateral ventricle and resolution of previously noted midline shift. Scattered hemorrhage within the infarct is less well. No new hemorrhage is identified.. Unable to obtain MRI due to pacemaker. TTE done which showed ejection fraction 65 to 70% and RVSP 41-45 mmHg. LDL 116, HgbA1c 6.5%. Prior to hospitalization patient was on Xarelto 15 mg daily for A. fib, was discontinued by [facility]. Plan - PT for gait stability - OT for ADLs - ST - PEG placement 06/13/19 - Right MCA infarct post thrombectomy on statin, asa, antihypertensives. Repeat CT head 06/10/2019 shows stable right MCA stroke with no new hemorrhage. Eliquis 5 mg p.o. twice daily started from 06/14/2019 post PEG placement, stroke initially occurred on 05/23/2019. Aspirin stopped once Eliquis was started, as per patient she was not on aspirin at home at baseline. - HTN on Losartan, HCTZ and Coreg. Goal blood pressure less than 130/80, avoid hypotension - A-fib- on flecainide xeralto discontinued by [facility]. Here started on Eliquis 5 mg p.o. twice daily from 06/14/2019 after PEG placed on 06/13/19, stroke initially occurred on 05/23/2019. - DM- metformin on hold, accuchecks ac/hs, HgbA1c 6.4% - S/P PEG- on jevity and sterile water flushes - Left shoulder in sling-possible shoulder dislocation, per PT/OT could have occurred few days ago, left shoulder Xray-report pending and Orthopedic consult. Further management per orthopedics recommendations - HLD on lipitor LDL 116 - RUDY stable 06/15/19 H/H 10.3/31.7 - Anxiety/depression on cymbalta - Insomnia/visual hallucinations-on Seroquel - GI/DVT prophylaxis pepcid/Eliquis, knee high nataly hose - Further medical management per hospitalist-consult - Analgesics as needed - Bowel protocol - F/U neurosurgeon Dr. Harrison, PCP, neurology, cardiology
[2019-07-10 13:55] VITALS: BMI 23.8
--- NOTE | 2019-07-10 19:00 | NURSING ---
Patient refused flu shot when offered and daughter Prerna present during the conversation.
[2019-07-10] MEDS: QUEtiapine 25 MG Tablet GT (19:59)
[2019-07-10] MEDS: Atorvastatin Calcium 40 MG Tablet GT (20:01)
[2019-07-10] MEDS: Latanoprost 0.005% 1 Bottle 1 DRP EACH EYE (20:03)
[2019-07-10 20:33] VITALS: BP 172/94; PULSE 61; RESP 16; TEMP 36.7; O2SAT 96
[2019-07-10 23:17] VITALS: BMI 23.8
[2019-07-11] MEDS: Acetaminophen 650 MG/20 ML UDC 1000 MG GT ×3 (05:40→19:54)
[2019-07-11] MEDS: Carvedilol 12.5 MG Tablet GT ×2 (05:40→13:32)
[2019-07-11] MEDS: Jevity 1.5. 1,000 ML Bottle 240 ML GT ×5 (05:41→20:33)
[2019-07-11 07:00] VITALS: BP 152/85; PULSE 60; RESP 16; TEMP 36.4; O2SAT 96
[2019-07-11] MEDS: Losartan Potassium 100 MG Tablet GT (10:06)
[2019-07-11] MEDS: Famotidine 20 MG Tablet GT (10:06)
[2019-07-11] MEDS: DULoxetine Hcl 60 MG Capsule PO (10:06)
[2019-07-11] MEDS: Flecainide 100 MG Tablet GT ×2 (10:06→19:54)
[2019-07-11] MEDS: hydroCHLOROthiazide 25 MG Tablet GT (10:06)
[2019-07-11] MEDS: APIXABAN 5 MG TABLET GT ×2 (10:06→19:54)
[2019-07-11] MEDS: Menthol/Lanolin/Calamine/Znox 113 GM Tube 1 APPLIC TOPICAL ×2 (10:07→20:33)
[2019-07-11 12:19] VITALS: BMI 23.8
--- NOTE | 2019-07-11 13:03 | PN.NEURO_ITS ---
Subjective: No issues overnight. Care discussed with the nursing staff. - Physical Exam Vitals/I&O's: Vital Signs Temp Pulse Resp BP Pulse Ox 97.6 F L 60 16 152/85 H 96 07/11/19 07:00 07/11/19 07:00 07/11/19 07:00 07/11/19 07:00 07/11/19 07:00 Oxygen Delivery Method Room Air Weight: 65.8 kg Body Mass Index (BMI) 23.8 Finger Stick Blood Glucose 143 Intake and Output for Last 24 Hours 07/09/19 07/10/19 07/11/19 23:59 23:59 23:59 Intake Total 2990 / 2990 1170 / 1170 390 / 390 Output Total 300 / 300 850 / 850 Balance 2690 / 2690 320 / 320 390 / 390 General: Alert HEENT: Normocephalic Neck: Supple Lungs: Normal air movement Cardiovascular: Normal S1, Normal S2 Abdomen: Bowel Sounds Present Extremities: No cyanosis Neurological: - - Conscious, alert, CN II to XII grossly intact except 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, power 5/5 right upper and lower extremities, 2/5 Left UE, 3/5 left LE, plantars right flexor, left mute, no pronator drift, left sensory loss with left sensory neglect, no cerebellar signs, gait deferred, reflexes + B/L B/S/T/K/A, dysarthria +,No NR, fundus not visualized Psych/Mental Status: Normal Affect Current Medications Acetaminophen (Tylenol Liquid) 1,000 mg GT TID [facility] Last Admin: 07/11/19 05:40 Dose: 1,000 mg Documented by: Apixaban (Eliquis) 5 mg GT BID [facility] Last Admin: 07/11/19 10:06 Dose: 5 mg Documented by: Atorvastatin Calcium (Lipitor) 40 mg GT QHS [facility] Last Admin: 07/10/19 20:01 Dose: 40 mg Documented by: Bisacodyl (Dulcolax) 10 mg RECTAL .PRN X 1 PRN PRN Reason: Constipation Calamine/Phenol (Calmoseptine Ointment) 1 applic TOPICAL BID [facility]; Protocol Last Admin: 07/11/19 10:07 Dose: 1 applicatio Documented by: Carvedilol (Coreg) 12.5 mg GT Q8 [facility] Last Admin: 07/11/19 05:40 Dose: 12.5 mg Documented by: Duloxetine HCl (Cymbalta) 60 mg PO DAILY [facility] Last Admin: 07/11/19 10:06 Dose: 60 mg Documented by: Enteral Nutritional Formula (Jevity 1.5) 240 ml GT 5X/DAY [facility] Last Admin: 07/11/19 10:07 Dose: 240 ml Documented by: Famotidine (Pepcid) 20 mg GT DAILY [facility] Last Admin: 07/11/19 10:06 Dose: 20 mg Documented by: Flecainide Acetate (Tambocor) 100 mg GT BID [facility] Last Admin: 07/11/19 10:06 Dose: 100 mg Documented by: Hydrochlorothiazide (Hctz) 25 mg GT DAILY [facility] Last Admin: 07/11/19 10:06 Dose: 25 mg Documented by: Lactobacillus Acidophilus (Acidophilus) 1 tablet GT BID [facility] Last Admin: 07/11/19 10:06 Dose: 1 tablet Documented by: Latanoprost (Xalatan Opthalmic) 1 drop EACH EYE DAILY@2199 [facility] Last Admin: 07/10/19 20:03 Dose: 1 drop Documented by: Loperamide HCl (Imodium) 2 mg PO Q4H PRN PRN PRN Reason: DIARRHEA/LOOSE STOOLS Last Admin: 07/10/19 09:56 Dose: 2 mg Documented by: Losartan Potassium (Cozaar) 100 mg GT DAILY [facility] Last Admin: 07/11/19 10:06 Dose: 100 mg Documented by: Magnesium Hydroxide (Milk Of Magnesia) 30 ml PO .PRN X 1 PRN PRN Reason: Constipation Last Admin: 07/08/19 17:32 Dose: 30 ml Documented by: Multi-Ingredient Cream (Eucerin) 1 applic TOPICAL TID PRN PRN; Protocol PRN Reason: Dry Skin Potassium Chloride (Potassium Chl Soln) 20 meq GT DAILY [facility] Last Admin: 07/11/19 10:06 Dose: 20 meq Documented by: Quetiapine Fumarate (Seroquel) 25 mg GT DAILY@1999 [facility] Last Admin: 07/10/19 19:59 Dose: 25 mg Documented by: Sodium Chloride () 5 - 15 ml IV UD PRN PRN Reason: SALINE FLUSH Last Admin: 06/19/19 06:13 Dose: 10 ml Documented by: Medical Necessity - Tobacco Use Smoking Status: Never smoker Tobacco Use: Non-smoker Assessment/Plan All Active Problems (Last Reviewed 07/09/19 @ 07:57 by Kathi Shields) CVA (cerebral vascular accident) (Acute 05/2019) The patient is a 79 year old F with PMH of HTN, HLD, CAD, DM type II, A-fib with RVR, pacemaker, RUDY, anxiety and depression admitted to [facility] on 06/06/2019 with debility secondary to right MCA with right M1 occlusion s/p post thrombectomy, for > 3 hours of therapy daily with a goal of returning home at or near her prior level of independence. She presented to [facility] ER on 05/23/2019 due to patient was found laying on the ground in her garage with left-sided deficits. NIH was 20. CT of brain suggestive of thrombus in the right MCA and an early infarct in the right MCA territory. CTA head and neck with contrast impression right MCA occlusion. No TPA and patient was transferred to [facility]. On 05/23/19, neurosurgeon Dr. Doll formed the right MCA thrombectomy, due to right [place] occlusion. Postprocedural right ICA arteriogram demonstrated TICI?2b revascularization. CT of head without contrast on 06/04/2019 right MCA territory infarct with decrease edema noted in resolution of previously noted mass-effect of the right lateral ventricle and resolution of previously noted midline shift. Scattered hemorrhage within the infarct is less well. No new hemorrhage is identified.. Unable to obtain MRI due to pacemaker. TTE done which showed ejection fraction 65 to 70% and RVSP 41-45 mmHg. LDL 116, HgbA1c 6.5%. Prior to hospitalization patient was on Xarelto 15 mg daily for A. fib, was discontinued by [facility]. Plan - PT for gait stability - OT for ADLs - ST - PEG placement 06/13/19 - Right MCA infarct post thrombectomy on statin, asa, antihypertensives. Repeat CT head 06/10/2019 shows stable right MCA stroke with no new hemorrhage. Eliquis 5 mg p.o. twice daily started from 06/14/2019 post PEG placement, stroke initially occurred on 05/23/2019. Aspirin stopped once Eliquis was started, as per patient she was not on aspirin at home at baseline. - HTN on Losartan, HCTZ and Coreg. Goal blood pressure less than 130/80, avoid hypotension. Add Amlodipine 2.5 mg PO once daily, change to Coreg 12.5 mg PO BID . Likely not true allergy to amlodipine per discussion with hospitalist. Probably had itching after amlodipine in the past but no anaphylaxis per PCP documentation - A-fib- on flecainide xeralto discontinued by [facility]. Here started on Eliquis 5 mg p.o. twice daily from 06/14/2019 after PEG placed on 06/13/19, stroke initially occurred on 05/23/2019. - DM- metformin on hold, accuchecks ac/hs, HgbA1c 6.4% - S/P PEG- on jevity and sterile water flushes - Left shoulder in sling-possible shoulder dislocation, per PT/OT could have occurred few days ago, left shoulder Xray-Acromioclavicular arthrosis, Orthopedic consult. Further management per orthopedics recommendations - HLD on lipitor LDL 116 - RUDY stable 06/15/19 H/H 10.3/31.7 - Anxiety/depression on cymbalta - Insomnia/visual hallucinations-on Seroquel - GI/DVT prophylaxis pepcid/Eliquis, knee high nataly hose - Further medical management per hospitalist-consult - Analgesics as needed - Bowel protocol - F/U neurosurgeon Dr. Harrison, PCP, neurology, cardiology
[2019-07-11 13:30] VITALS: BP 158/85; PULSE 65
--- NOTE | 2019-07-11 15:00 | NURSING ---
Dr. Chawla office verified that norvasc and hydralazine had itching as allergy for patient's chart. Dr. Josue made aware. spoke with patient and she verified that she got itchy but had no other reaction.
--- NOTE | 2019-07-11 15:20 | PN_ITS ---
Subjective: Blood pressure was elevated 172/94, 152/85. Heart rate is regular sinus rhythm in 60s. Patient already on 3 antihypertensive medication which is on maximum dose, HCTZ 25 mg, losartan 100 mg and Coreg 12.5 mg q. 8 hourly. Discussed with the neurologist Dr. Marquez the best medication will be amlodipine. She already had thrombectomy of left MCA thrombosis. In This situation, blood pressure needs to be optimally controlled. When asked the patient, she states he had itching with amlodipine in the past but does not remember any significant adverse or allergic reaction with hydralazine. She denies any rash, hives with any medications. Further PCP office was called and they have listed itching and restriction similar in our record. I discussed with the pharmacist and agreed upon starting amlodipine 2.5 mg and increase 5 mg tomorrow a.m. Objective: General: Alert, Oriented x3, Cooperative HEENT: Atraumatic, PERRLA, EOMI, Normocephalic Neck: Supple, No JVD, Negative Carotid Bruits Lungs: Clear to auscultation, Normal air movement, No rhonchi, No wheeze, No rales Cardiovascular: Regular rate, Regular Rhythm, Normal S1, Normal S2, No murmurs Abdomen: Bowel Sounds Present, Soft, Non Tender, Non-Distended Extremities: No edema, Capillary Refill Less than 3 Seconds Skin: No rashes, No breakdown Musculoskeletal: No Tenderness to Palpation of Joints or Extremities, Arthritic Changes, Muscle Wasting Neurological: Cranial nerves II-XII grossly intact, Left upper extremity weakness power 2/5 and Left lower extremity, 4/5 Psych/Mental Status: Normal Affect, Appropriate Vitals/I&O's: Vital Signs Temp Pulse Resp BP Pulse Ox 97.6 F L 65 16 158/85 H 96 07/11/19 07:00 07/11/19 13:30 07/11/19 07:00 07/11/19 13:30 07/11/19 07:00 Oxygen Delivery Method Room Air Weight: 145 lb 1.027 oz Body Mass Index (BMI) 23.8 Finger Stick Blood Glucose 143 Intake and Output for Last 24 Hours 07/09/19 07/10/19 07/11/19 23:59 23:59 23:59 Intake Total 2990 / 2990 1170 / 1170 390 / 390 Output Total 300 / 300 850 / 850 Balance 2690 / 2690 320 / 320 390 / 390 Current Medications Acetaminophen (Tylenol Liquid) 1,000 mg GT TID [facility] Last Admin: 07/11/19 13:31 Dose: 1,000 mg Documented by: Apixaban (Eliquis) 5 mg GT BID [facility] Last Admin: 07/11/19 10:06 Dose: 5 mg Documented by: Atorvastatin Calcium (Lipitor) 40 mg GT QHS [facility] Last Admin: 07/10/19 20:01 Dose: 40 mg Documented by: Bisacodyl (Dulcolax) 10 mg RECTAL .PRN X 1 PRN PRN Reason: Constipation Calamine/Phenol (Calmoseptine Ointment) 1 applic TOPICAL BID [facility]; Protocol Last Admin: 07/11/19 10:07 Dose: 1 applicatio Documented by: Carvedilol (Coreg) 12.5 mg GT BID [facility] Duloxetine HCl (Cymbalta) 60 mg PO DAILY [facility] Last Admin: 07/11/19 10:06 Dose: 60 mg Documented by: Enteral Nutritional Formula (Jevity 1.5) 240 ml GT 5X/DAY [facility] Last Admin: 07/11/19 13:32 Dose: 240 ml Documented by: Famotidine (Pepcid) 20 mg GT DAILY [facility] Last Admin: 07/11/19 10:06 Dose: 20 mg Documented by: Flecainide Acetate (Tambocor) 100 mg GT BID [facility] Last Admin: 07/11/19 10:06 Dose: 100 mg Documented by: Hydrochlorothiazide (Hctz) 25 mg GT DAILY [facility] Last Admin: 07/11/19 10:06 Dose: 25 mg Documented by: Lactobacillus Acidophilus (Acidophilus) 1 tablet GT BID [facility] Last Admin: 07/11/19 10:06 Dose: 1 tablet Documented by: Latanoprost (Xalatan Opthalmic) 1 drop EACH EYE DAILY@2200 [facility] Last Admin: 07/10/19 20:03 Dose: 1 drop Documented by: Loperamide HCl (Imodium) 2 mg PO Q4H PRN PRN PRN Reason: DIARRHEA/LOOSE STOOLS Last Admin: 07/10/19 09:56 Dose: 2 mg Documented by: Losartan Potassium (Cozaar) 100 mg GT DAILY [facility] Last Admin: 07/11/19 10:06 Dose: 100 mg Documented by: Magnesium Hydroxide (Milk Of Magnesia) 30 ml PO .PRN X 1 PRN PRN Reason: Constipation Last Admin: 07/08/19 17:32 Dose: 30 ml Documented by: Multi-Ingredient Cream (Eucerin) 1 applic TOPICAL TID PRN PRN; Protocol PRN Reason: Dry Skin Potassium Chloride (Potassium Chl Soln) 20 meq GT DAILY [facility] Last Admin: 07/11/19 10:06 Dose: 20 meq Documented by: Quetiapine Fumarate (Seroquel) 25 mg GT DAILY@1999 [facility] Last Admin: 07/10/19 19:59 Dose: 25 mg Documented by: Sodium Chloride () 5 - 15 ml IV UD PRN PRN Reason: SALINE FLUSH Last Admin: 06/19/19 06:13 Dose: 10 ml Documented by: STROKE Vital Signs/Narrative: Vital Signs Pulse BP 07/11/19 13:30 65 158/85 H Medical Necessity - Tobacco Use Smoking Status: Never smoker Tobacco Use: Non-smoker Assessment/Plan All Active Problems (Last Reviewed 07/09/19 @ 07:57 by Kathi Shields) CVA (cerebral vascular accident) (Acute 05/2019) This is a 79 years old female patient admitted to inpatient rehabilitation unit after she suffered a right MCA stroke with 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 #1 acute right MCA stroke: Patient has left upper extremity weakness which did not show consistent improvement. Left lower extremity weakness has improved. Patient has a right MCA thrombosis infarct status post thrombectomy. Remained on Eliquis and statins. Plan to continue PT OT according to rehab team. Left shoulder x-ray shows AC joint arthrosis #2 hypertension: Blood pressure stable less than 140/77. Blood pressure elevated and uncontrolled even on 3 antihypertensive medications maximum dose H CTZ 95 mg, losartan 100 mg Coreg 12.5 mg every 8 hourly. His heart rate is optimally controlled in 60s, Coreg decreased to 12.5 mg twice daily. After discussion with the patient, PCP office, neurologist and pharmacist, agreed upon trying low-dose aspirin 2.5 mg and then gradually increase to control the blood pressure. Allergy list reviewed. Patient does not remember allergy or adverse reaction with hydralazine. Mild itching with amlodipine. 3. Oropharyngeal dysphagia secondary to stroke: Status post PEG tube placement, on tube feeds, she is tolerating tube feeds. Remained n.p.o. modified barium swallow shows penetration and aspiration. 4 recent history of aspiration pneumonia, completed treatment with IV Zosyn. Resolved. 5 paroxysmal atrial fibrillation: Rate is controlled, continue flecainide and Coreg for rate control, continue Eliquis for anticoagulation. # #6 type 2 diabetes mellitus: A1c 6.4. Accu-Cheks near-normal. Metformin on hold #7 depression/anxiety: Continue Seroquel and Cymbalta. #8 DVT prophylaxis: Continue Eliquis. Active Medications Acetaminophen (Tylenol Liquid) 1,000 mg GT TID [facility] Last Admin: 07/11/19 13:31 Dose: 1,000 mg Documented by: Apixaban (Eliquis) 5 mg GT BID [facility] Last Admin: 07/11/19 10:06 Dose: 5 mg Documented by: Atorvastatin Calcium (Lipitor) 40 mg GT QHS [facility] Last Admin: 07/10/19 20:01 Dose: 40 mg Documented by: Bisacodyl (Dulcolax) 10 mg RECTAL .PRN X 1 PRN PRN Reason: Constipation Calamine/Phenol (Calmoseptine Ointment) 1 applic TOPICAL BID [facility]; Protocol Last Admin: 07/11/19 10:07 Dose: 1 applicatio Documented by: Carvedilol (Coreg) 12.5 mg GT BID [facility] Duloxetine HCl (Cymbalta) 60 mg PO DAILY [facility] Last Admin: 07/11/19 10:06 Dose: 60 mg Documented by: Enteral Nutritional Formula (Jevity 1.5) 240 ml GT 5X/DAY [facility] Last Admin: 07/11/19 13:32 Dose: 240 ml Documented by: Famotidine (Pepcid) 20 mg GT DAILY [facility] Last Admin: 07/11/19 10:06 Dose: 20 mg Documented by: Flecainide Acetate (Tambocor) 100 mg GT BID [facility] Last Admin: 07/11/19 10:06 Dose: 100 mg Documented by: Hydrochlorothiazide (Hctz) 25 mg GT DAILY [facility] Last Admin: 07/11/19 10:06 Dose: 25 mg Documented by: Lactobacillus Acidophilus (Acidophilus) 1 tablet GT BID [facility] Last Admin: 07/11/19 10:06 Dose: 1 tablet Documented by: Latanoprost (Xalatan Opthalmic) 1 drop EACH EYE DAILY@2200 [facility] Last Admin: 07/10/19 20:03 Dose: 1 drop Documented by: Loperamide HCl (Imodium) 2 mg PO Q4H PRN PRN PRN Reason: DIARRHEA/LOOSE STOOLS Last Admin: 07/10/19 09:56 Dose: 2 mg Documented by: Losartan Potassium (Cozaar) 100 mg GT DAILY [facility] Last Admin: 07/11/19 10:06 Dose: 100 mg Documented by: Magnesium Hydroxide (Milk Of Magnesia) 30 ml PO .PRN X 1 PRN PRN Reason: Constipation Last Admin: 07/08/19 17:32 Dose: 30 ml Documented by: Multi-Ingredient Cream (Eucerin) 1 applic TOPICAL TID PRN PRN; Protocol PRN Reason: Dry Skin Potassium Chloride (Potassium Chl Soln) 20 meq GT DAILY [facility] Last Admin: 07/11/19 10:06 Dose: 20 meq Documented by: Quetiapine Fumarate (Seroquel) 25 mg GT DAILY@1999 [facility] Last Admin: 07/10/19 19:59 Dose: 25 mg Documented by: Sodium Chloride () 5 - 15 ml IV UD PRN PRN Reason: SALINE FLUSH Last Admin: 06/19/19 06:13 Dose: 10 ml Documented by: Laboratory Results 07/08/19 16:04: Hemoglobin A1c 6.4 H Clinical Impression(s) from Imaging Studies Brain CT 06/10/19 09:59 IMPRESSION: Further evolution of the subacute right middle cerebral artery infarct. No acute hemorrhage. Videofluoroscopic Swallow 06/11/19 00:00 IMPRESSION: Penetration and aspiration was noted with thin barium through barium and pudding. The swallow study findings were discussed with the patient by the speech pathologist at the conclusion of the examination. Please see speech pathology report for more information and recommendations. The procedure was performed by the speech therapist under the direct supervision of Dr. Curry. Chest X-Ray 06/14/19 23:45 IMPRESSION: Mild new linear left lower lobe pulmonary opacities, mild infiltrates and subsegmental atelectasis possible aspiration Mild cardiomegaly unchanged Cardiac pacemaker Minimal contrast in colon from prior swallowing study Abdomen X-Ray 06/15/19 00:39 IMPRESSION: No acute abdominal abnormality is radiographically apparent. Brain CT 06/22/19 08:00 IMPRESSION: Expected evolution of right MCA territory infarction. No midline shift or hemorrhagic transformation. Code Visit Inpatient E&M: 84449 Subs Hosp L2
[2019-07-11] MEDS: amLODIPine 2.5 MG Tablet PO (17:47)
[2019-07-11] MEDS: QUEtiapine 25 MG Tablet GT (19:54)
[2019-07-11] MEDS: Atorvastatin Calcium 40 MG Tablet GT (19:54)
[2019-07-11] MEDS: Latanoprost 0.005% 1 Bottle 1 DRP EACH EYE (19:55)
[2019-07-11 20:34] VITALS: BP 161/88; PULSE 62; RESP 16; TEMP 36.6; O2SAT 97
[2019-07-11 22:30] VITALS: BMI 23.8
--- NOTE | 2019-07-12 03:25 | NURSING ---
REVIEWED AND AGREE WITH MANAGER SKILLED'S FUNCTIONAL ASSESS OF PT AND HANDOFF CHARTING.
[2019-07-12] MEDS: Acetaminophen 650 MG/20 ML UDC 1000 MG GT ×3 (06:24→21:00)
[2019-07-12] MEDS: Jevity 1.5. 1,000 ML Bottle 240 ML GT ×5 (06:25→21:00)
[2019-07-12 10:00] VITALS: BP 118/69; PULSE 63; RESP 16; TEMP 36.4; O2SAT 96
[2019-07-12] MEDS: Famotidine 20 MG Tablet GT (10:13)
[2019-07-12] MEDS: amLODIPine 5 MG Tablet PO (10:13)
[2019-07-12] MEDS: Loperamide 2 MG Capsule PO (10:13)
[2019-07-12] MEDS: Flecainide 100 MG Tablet GT ×2 (10:13→20:59)
[2019-07-12] MEDS: Losartan Potassium 100 MG Tablet GT (10:14)
[2019-07-12] MEDS: hydroCHLOROthiazide 25 MG Tablet GT (10:14)
[2019-07-12] MEDS: APIXABAN 5 MG TABLET GT ×2 (10:14→20:59)
[2019-07-12] MEDS: Carvedilol 12.5 MG Tablet GT ×2 (10:14→20:59)
[2019-07-12] MEDS: DULoxetine Hcl 60 MG Capsule PO (10:14)
[2019-07-12] MEDS: Menthol/Lanolin/Calamine/Znox 113 GM Tube 1 APPLIC TOPICAL ×2 (10:33→20:59)
--- NOTE | 2019-07-12 13:26 | PCM.PN.NEU ---
Subjective: No issues overnight. Care discussed with the nursing staff. - Physical Exam Vitals/I&O's: Vital Signs Temp Pulse Resp BP Pulse Ox 97.6 F L 63 16 118/69 96 07/12/19 10:00 07/12/19 10:00 07/12/19 10:00 07/12/19 10:00 07/12/19 10:00 Oxygen Delivery Method Room Air Weight: 65.6 kg Body Mass Index (BMI) 23.8 Finger Stick Blood Glucose 143 Intake and Output for Last 24 Hours 07/10/19 07/11/19 07/12/19 23:59 23:59 23:59 Intake Total 1170 / 1170 1170 / 1170 Output Total 850 / 850 500 / 500 Balance 320 / 320 1170 / 1170 -500 / -500 General: Alert HEENT: Normocephalic Neck: Supple Lungs: Normal air movement Cardiovascular: Normal S1, Normal S2 Abdomen: Bowel Sounds Present Extremities: No cyanosis Neurological: - - Conscious, alert, CN II to XII grossly intact except 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, power 5/5 right upper and lower extremities, 2/5 Left UE, 3/5 left LE, plantars right flexor, left mute, no pronator drift, left sensory loss with left sensory neglect, no cerebellar signs, gait deferred, reflexes + B/L B/S/T/K/A, dysarthria +,No NR, fundus not visualized Psych/Mental Status: Normal Affect Current Medications Acetaminophen (Tylenol Liquid) 1,000 mg GT TID [facility] Last Admin: 07/12/19 06:24 Dose: 1,000 mg Documented by: Amlodipine Besylate (Norvasc) 5 mg PO DAILY [facility] Last Admin: 07/12/19 10:13 Dose: 5 mg Documented by: Apixaban (Eliquis) 5 mg GT BID [facility] Last Admin: 07/12/19 10:14 Dose: 5 mg Documented by: Atorvastatin Calcium (Lipitor) 40 mg GT QHS [facility] Last Admin: 07/11/19 19:54 Dose: 40 mg Documented by: Bisacodyl (Dulcolax) 10 mg RECTAL .PRN X 1 PRN PRN Reason: Constipation Calamine/Phenol (Calmoseptine Ointment) 1 applic TOPICAL BID [facility]; Protocol Last Admin: 07/12/19 10:33 Dose: 1 applicatio Documented by: Carvedilol (Coreg) 12.5 mg GT BID [facility] Last Admin: 07/12/19 10:14 Dose: 12.5 mg Documented by: Duloxetine HCl (Cymbalta) 60 mg PO DAILY [facility] Last Admin: 07/12/19 10:14 Dose: 60 mg Documented by: Enteral Nutritional Formula (Jevity 1.5) 240 ml GT 5X/DAY [facility] Last Admin: 07/12/19 10:15 Dose: 240 ml Documented by: Famotidine (Pepcid) 20 mg GT DAILY [facility] Last Admin: 07/12/19 10:13 Dose: 20 mg Documented by: Flecainide Acetate (Tambocor) 100 mg GT BID [facility] Last Admin: 07/12/19 10:13 Dose: 100 mg Documented by: Hydrochlorothiazide (Hctz) 25 mg GT DAILY [facility] Last Admin: 07/12/19 10:14 Dose: 25 mg Documented by: Lactobacillus Acidophilus (Acidophilus) 1 tablet GT BID [facility] Last Admin: 07/12/19 10:14 Dose: 1 tablet Documented by: Latanoprost (Xalatan Opthalmic) 1 drop EACH EYE DAILY@2200 [facility] Last Admin: 07/11/19 19:55 Dose: 1 drop Documented by: Loperamide HCl (Imodium) 2 mg PO Q4H PRN PRN PRN Reason: DIARRHEA/LOOSE STOOLS Last Admin: 07/12/19 10:13 Dose: 2 mg Documented by: Losartan Potassium (Cozaar) 100 mg GT DAILY [facility] Last Admin: 07/12/19 10:14 Dose: 100 mg Documented by: Magnesium Hydroxide (Milk Of Magnesia) 30 ml PO .PRN X 1 PRN PRN Reason: Constipation Last Admin: 07/08/19 17:32 Dose: 30 ml Documented by: Multi-Ingredient Cream (Eucerin) 1 applic TOPICAL TID PRN PRN; Protocol PRN Reason: Dry Skin Potassium Chloride (Potassium Chl Soln) 20 meq GT DAILY [facility] Last Admin: 07/12/19 10:15 Dose: 20 meq Documented by: Quetiapine Fumarate (Seroquel) 25 mg GT DAILY@2000 [facility] Last Admin: 07/11/19 19:54 Dose: 25 mg Documented by: Sodium Chloride () 5 - 15 ml IV UD PRN PRN Reason: SALINE FLUSH Last Admin: 06/19/19 06:13 Dose: 10 ml Documented by: STROKE Vital Signs/Narrative: Vital Signs Temp Pulse Resp BP Pulse Ox 07/12/19 10:00 97.6 F L 63 16 118/69 96 Medical Necessity - Tobacco Use Smoking Status: Never smoker Tobacco Use: Non-smoker Assessment/Plan All Active Problems (Last Reviewed 07/09/19 @ 07:57 by Kathi Shields) CVA (cerebral vascular accident) (Acute 05/2019) The patient is a 79 year old F with PMH of HTN, HLD, CAD, DM type II, A-fib with RVR, pacemaker, RUDY, anxiety and depression admitted to [facility] on 06/06/2019 with debility secondary to right MCA with right M1 occlusion s/p post thrombectomy, for > 3 hours of therapy daily with a goal of returning home at or near her prior level of independence. She presented to [facility] ER on 05/23/2019 due to patient was found laying on the ground in her garage with left-sided deficits. NIH was 20. CT of brain suggestive of thrombus in the right MCA and an early infarct in the right MCA territory. CTA head and neck with contrast impression right MCA occlusion. No TPA and patient was transferred to [facility]. On 05/23/19, neurosurgeon Dr. Doll formed the right MCA thrombectomy, due to right HI occlusion. Postprocedural right ICA arteriogram demonstrated TICI?2b revascularization. CT of head without contrast on 06/04/2019 right MCA territory infarct with decrease edema noted in resolution of previously noted mass-effect of the right lateral ventricle and resolution of previously noted midline shift. Scattered hemorrhage within the infarct is less well. No new hemorrhage is identified.. Unable to obtain MRI due to pacemaker. TTE done which showed ejection fraction 65 to 70% and RVSP 41-45 mmHg. LDL 116, HgbA1c 6.5%. Prior to hospitalization patient was on Xarelto 15 mg daily for A. fib, was discontinued by [facility]. Plan - PT for gait stability - OT for ADLs - ST - PEG placement 06/13/19 - Right MCA infarct post thrombectomy on statin, asa, antihypertensives. Repeat CT head 06/10/2019 shows stable right MCA stroke with no new hemorrhage. Eliquis 5 mg p.o. twice daily started from 06/14/2019 post PEG placement, stroke initially occurred on 05/23/2019. Aspirin stopped once Eliquis was started, as per patient she was not on aspirin at home at baseline. - HTN on Losartan, HCTZ, amlodipine and Coreg. Goal blood pressure less than 130/80, avoid hypotension. Started on amlodipine from 07/11/2019. Tolerating medication well. - A-fib- on flecainide xeralto discontinued by [facility]. Here started on Eliquis 5 mg p.o. twice daily from 06/14/2019 after PEG placed on 06/13/19, stroke initially occurred on 05/23/2019. - DM- metformin on hold, accuchecks ac/hs, HgbA1c 6.4% - S/P PEG- on jevity and sterile water flushes - Left shoulder in sling-possible shoulder dislocation, per PT/OT could have occurred few days ago, left shoulder Xray-Acromioclavicular arthrosis, Orthopedic consult. Further management per orthopedics recommendations - HLD on lipitor LDL 116 - RUDY stable 06/15/19 H/H 10.3/31.7 - Anxiety/depression on cymbalta - Insomnia/visual hallucinations-on Seroquel - GI/DVT prophylaxis pepcid/Eliquis, knee high nataly hose - Further medical management per hospitalist-consult - Analgesics as needed - Bowel protocol - F/U neurosurgeon Dr. Harrison, PCP, neurology, cardiology
[2019-07-12 14:00] VITALS: BP 159/98; PULSE 69
[2019-07-12 15:57] VITALS: BMI 23.8
[2019-07-12] MEDS: Latanoprost 0.005% 1 Bottle 1 DRP EACH EYE (20:59)
[2019-07-12] MEDS: Atorvastatin Calcium 40 MG Tablet GT (20:59)
[2019-07-12] MEDS: QUEtiapine 25 MG Tablet GT (21:00)
[2019-07-12 21:58] VITALS: BP 147/79; PULSE 63; RESP 18; TEMP 37; O2SAT 95
[2019-07-13 00:28] VITALS: BMI 23.8
[2019-07-13] MEDS: Acetaminophen 650 MG/20 ML UDC 1000 MG GT ×3 (06:59→20:28)
[2019-07-13] MEDS: Jevity 1.5. 1,000 ML Bottle 240 ML GT ×5 (06:59→20:27)
[2019-07-13 08:00] VITALS: BP 136/72; PULSE 70; RESP 18; TEMP 36.7; O2SAT 96
[2019-07-13] MEDS: Carvedilol 12.5 MG Tablet GT ×2 (09:28→20:27)
[2019-07-13] MEDS: Losartan Potassium 100 MG Tablet GT (09:28)
[2019-07-13] MEDS: Flecainide 100 MG Tablet GT ×2 (09:28→20:28)
[2019-07-13] MEDS: Famotidine 20 MG Tablet GT (09:28)
[2019-07-13] MEDS: APIXABAN 5 MG TABLET GT ×2 (09:28→20:27)
[2019-07-13] MEDS: amLODIPine 5 MG Tablet PO (09:28)
[2019-07-13] MEDS: DULoxetine Hcl 60 MG Capsule PO (09:28)
[2019-07-13] MEDS: Menthol/Lanolin/Calamine/Znox 113 GM Tube 1 APPLIC TOPICAL ×2 (09:29→20:22)
[2019-07-13] MEDS: hydroCHLOROthiazide 25 MG Tablet GT (09:30)
[2019-07-13] MEDS: Loperamide 2 MG Capsule PO (09:39)
[2019-07-13 14:00] VITALS: BP 150/88; PULSE 66
[2019-07-13 14:04] VITALS: BMI 23.8
--- NOTE | 2019-07-13 15:13 | PN_ITS ---
Subjective: Patient hemodynamically stable. Her blood pressure is better controlled after starting amlodipine. Blood pressure most recent 136/72. Heart rate 70/min. Patient did not develop any allergic reaction to amlodipine. Vitals/I&O's: Vital Signs Temp Pulse Resp BP Pulse Ox 98.0 F 70 18 136/72 H 96 07/13/19 08:00 07/13/19 08:00 07/13/19 08:00 07/13/19 08:00 07/13/19 08:00 Oxygen Delivery Method Room Air Weight: 144 lb 9.972 oz Body Mass Index (BMI) 23.8 Finger Stick Blood Glucose 143 Intake and Output for Last 24 Hours 07/11/19 07/12/19 07/13/19 23:59 23:59 23:59 Intake Total 1170 / 1170 1560 / 1560 880 / 880 Output Total 500 / 500 800 / 800 Balance 1170 / 1170 1060 / 1060 80 / 80 General: Alert, Oriented x3, Cooperative HEENT: Atraumatic, PERRLA, EOMI, Normocephalic Neck: Supple, No JVD, Negative Carotid Bruits Lungs: Clear to auscultation, Normal air movement, No rhonchi, No wheeze, No rales Cardiovascular: Regular rate, No murmurs Abdomen: Bowel Sounds Present, Soft, Non Tender, Non-Distended Extremities: No edema, Capillary Refill Less than 3 Seconds Skin: No rashes, No breakdown Musculoskeletal: No Tenderness to Palpation of Joints or Extremities, Arthritic Changes Neurological: - - Left upper extremity weakness power 2/5 and Left lower extremity, 4/5 Facial droop. Psych/Mental Status: Normal Affect, Appropriate Current Medications Acetaminophen (Tylenol Liquid) 1,000 mg GT TID [facility] Last Admin: 07/13/19 13:28 Dose: 1,000 mg Documented by: Amlodipine Besylate (Norvasc) 5 mg PO DAILY [facility] Last Admin: 07/13/19 09:28 Dose: 5 mg Documented by: Apixaban (Eliquis) 5 mg GT BID [facility] Last Admin: 07/13/19 09:28 Dose: 5 mg Documented by: Atorvastatin Calcium (Lipitor) 40 mg GT QHS [facility] Last Admin: 07/12/19 20:59 Dose: 40 mg Documented by: Bisacodyl (Dulcolax) 10 mg RECTAL .PRN X 1 PRN PRN Reason: Constipation Calamine/Phenol (Calmoseptine Ointment) 1 applic TOPICAL BID [facility]; Protocol Last Admin: 07/13/19 09:29 Dose: 1 applicatio Documented by: Carvedilol (Coreg) 12.5 mg GT BID [facility] Last Admin: 07/13/19 09:28 Dose: 12.5 mg Documented by: Duloxetine HCl (Cymbalta) 60 mg PO DAILY [facility] Last Admin: 07/13/19 09:28 Dose: 60 mg Documented by: Enteral Nutritional Formula (Jevity 1.5) 240 ml GT 5X/DAY [facility] Last Admin: 07/13/19 13:29 Dose: 240 ml Documented by: Famotidine (Pepcid) 20 mg GT DAILY [facility] Last Admin: 07/13/19 09:28 Dose: 20 mg Documented by: Flecainide Acetate (Tambocor) 100 mg GT BID [facility] Last Admin: 07/13/19 09:28 Dose: 100 mg Documented by: Hydrochlorothiazide (Hctz) 25 mg GT DAILY [facility] Last Admin: 07/13/19 09:30 Dose: 25 mg Documented by: Lactobacillus Acidophilus (Acidophilus) 1 tablet GT BID [facility] Last Admin: 07/13/19 09:28 Dose: 1 tablet Documented by: Latanoprost (Xalatan Opthalmic) 1 drop EACH EYE DAILY@2200 [facility] Last Admin: 07/12/19 20:59 Dose: 1 drop Documented by: Loperamide HCl (Imodium) 2 mg PO Q4H PRN PRN PRN Reason: DIARRHEA/LOOSE STOOLS Last Admin: 07/13/19 09:39 Dose: 2 mg Documented by: Losartan Potassium (Cozaar) 100 mg GT DAILY [facility] Last Admin: 07/13/19 09:28 Dose: 100 mg Documented by: Magnesium Hydroxide (Milk Of Magnesia) 30 ml PO .PRN X 1 PRN PRN Reason: Constipation Last Admin: 07/08/19 17:32 Dose: 30 ml Documented by: Multi-Ingredient Cream (Eucerin) 1 applic TOPICAL TID PRN PRN; Protocol PRN Reason: Dry Skin Potassium Chloride (Potassium Chl Soln) 20 meq GT DAILY [facility] Last Admin: 07/13/19 09:28 Dose: 20 meq Documented by: Quetiapine Fumarate (Seroquel) 25 mg GT DAILY@1999 [facility] Last Admin: 07/12/19 21:00 Dose: 25 mg Documented by: Sodium Chloride () 5 - 15 ml IV UD PRN PRN Reason: SALINE FLUSH Last Admin: 06/19/19 06:13 Dose: 10 ml Documented by: Medical Necessity - Tobacco Use Smoking Status: Never smoker Tobacco Use: Non-smoker Assessment/Plan All Active Problems (Last Reviewed 07/09/19 @ 07:57 by Kathi Shields) CVA (cerebral vascular accident) (Acute 05/2019) This is a 79 years old female patient admitted to inpatient rehabilitation unit after she suffered a right MCA stroke with 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 #1 acute right MCA stroke: Patient has left upper extremity weakness which did not show consistent improvement. Left lower extremity weakness has improved. Patient has a right MCA thrombosis infarct status post thrombectomy. Remained on Eliquis and statins. Plan to continue PT OT according to rehab team. Left shoulder x-ray shows AC joint arthrosis #2 hypertension: Blood pressure is controlled, 118/69, 147/79 and 136/72. Heart rate sinus rhythm in 60s. On HCTZ, losartan and Coreg maximum dose. She did not had allergic reaction to to amlodipine. 3. Oropharyngeal dysphagia secondary to stroke: Status post PEG tube placement, on tube feeds, she is tolerating tube feeds. Remained n.p.o. modified barium swallow shows penetration and aspiration. 4 recent history of aspiration pneumonia, completed treatment with IV Zosyn. Resolved. 5 paroxysmal atrial fibrillation: Rate is controlled, continue flecainide and Coreg for rate control, continue Eliquis for anticoagulation. #6 type 2 diabetes mellitus: A1c 6.4. Accu-Cheks near-normal. Metformin on hold #7 depression/anxiety: Continue Seroquel and Cymbalta. #8 DVT prophylaxis: Continue Eliquis. Active Medications Acetaminophen (Tylenol Liquid) 1,000 mg GT TID [facility] Last Admin: 07/13/19 13:28 Dose: 1,000 mg Documented by: Amlodipine Besylate (Norvasc) 5 mg PO DAILY [facility] Last Admin: 07/13/19 09:28 Dose: 5 mg Documented by: Apixaban (Eliquis) 5 mg GT BID [facility] Last Admin: 07/13/19 09:28 Dose: 5 mg Documented by: Atorvastatin Calcium (Lipitor) 40 mg GT QHS [facility] Last Admin: 07/12/19 20:59 Dose: 40 mg Documented by: Bisacodyl (Dulcolax) 10 mg RECTAL .PRN X 1 PRN PRN Reason: Constipation Calamine/Phenol (Calmoseptine Ointment) 1 applic TOPICAL BID [facility]; Protocol Last Admin: 07/13/19 09:29 Dose: 1 applicatio Documented by: Carvedilol (Coreg) 12.5 mg GT BID [facility] Last Admin: 07/13/19 09:28 Dose: 12.5 mg Documented by: Duloxetine HCl (Cymbalta) 60 mg PO DAILY [facility] Last Admin: 07/13/19 09:28 Dose: 60 mg Documented by: Enteral Nutritional Formula (Jevity 1.5) 240 ml GT 5X/DAY [facility] Last Admin: 07/13/19 13:29 Dose: 240 ml Documented by: Famotidine (Pepcid) 20 mg GT DAILY [facility] Last Admin: 07/13/19 09:28 Dose: 20 mg Documented by: Flecainide Acetate (Tambocor) 100 mg GT BID [facility] Last Admin: 07/13/19 09:28 Dose: 100 mg Documented by: Hydrochlorothiazide (Hctz) 25 mg GT DAILY [facility] Last Admin: 07/13/19 09:30 Dose: 25 mg Documented by: Lactobacillus Acidophilus (Acidophilus) 1 tablet GT BID [facility] Last Admin: 07/13/19 09:28 Dose: 1 tablet Documented by: Latanoprost (Xalatan Opthalmic) 1 drop EACH EYE DAILY@2200 [facility] Last Admin: 07/12/19 20:59 Dose: 1 drop Documented by: Loperamide HCl (Imodium) 2 mg PO Q4H PRN PRN PRN Reason: DIARRHEA/LOOSE STOOLS Last Admin: 07/13/19 09:39 Dose: 2 mg Documented by: Losartan Potassium (Cozaar) 100 mg GT DAILY [facility] Last Admin: 07/13/19 09:28 Dose: 100 mg Documented by: Magnesium Hydroxide (Milk Of Magnesia) 30 ml PO .PRN X 1 PRN PRN Reason: Constipation Last Admin: 07/08/19 17:32 Dose: 30 ml Documented by: Multi-Ingredient Cream (Eucerin) 1 applic TOPICAL TID PRN PRN; Protocol PRN Reason: Dry Skin Potassium Chloride (Potassium Chl Soln) 20 meq GT DAILY [facility] Last Admin: 07/13/19 09:28 Dose: 20 meq Documented by: Quetiapine Fumarate (Seroquel) 25 mg GT DAILY@1999 [facility] Last Admin: 07/12/19 21:00 Dose: 25 mg Documented by: Sodium Chloride () 5 - 15 ml IV UD PRN PRN Reason: SALINE FLUSH Last Admin: 06/19/19 06:13 Dose: 10 ml Documented by: Clinical Impression(s) from Imaging Studies Brain CT 06/10/19 09:59 IMPRESSION: Further evolution of the subacute right middle cerebral artery infarct. No acute hemorrhage. Videofluoroscopic Swallow 06/11/19 00:00 IMPRESSION: Penetration and aspiration was noted with thin barium through barium and pudding. The swallow study findings were discussed with the patient by the speech pathologist at the conclusion of the examination. Please see speech pathology report for more information and recommendations. The procedure was performed by the speech therapist under the direct supervision of Dr. Curry. Chest X-Ray 06/14/19 23:45 IMPRESSION: Mild new linear left lower lobe pulmonary opacities, mild infiltrates and subsegmental atelectasis possible aspiration Mild cardiomegaly unchanged Cardiac pacemaker Minimal contrast in colon from prior swallowing study Abdomen X-Ray 06/15/19 00:39 IMPRESSION: No acute abdominal abnormality is radiographically apparent. Brain CT 06/22/19 08:00 IMPRESSION: Expected evolution of right MCA territory infarction. No midline shift or hemorrhagic transformation. Code Visit Inpatient E&M: 35427 Subs Hosp L2
--- NOTE | 2019-07-13 16:00 | NURSING ---
Dr. Josue made aware that communion was served to patient and the person did not know she was NPO when a sign is hanging above HOB. Personnel reported he gave her a sip of water and a wafer that is dissolvable. Nurse educated person. No signs of choking and no wafer seen in mouth when this nurse looked. NNO's. Will monitor. Daughter Gianluca made aware of incident.
[2019-07-13] MEDS: QUEtiapine 25 MG Tablet GT (20:21)
[2019-07-13] MEDS: Atorvastatin Calcium 40 MG Tablet GT (20:28)
[2019-07-13] MEDS: Latanoprost 0.005% 1 Bottle 1 DRP EACH EYE (20:28)
[2019-07-13 21:05] VITALS: BP 148/88; PULSE 62; RESP 18; TEMP 36.6; O2SAT 96
[2019-07-13 22:36] VITALS: BMI 23.8
--- NOTE | 2019-07-14 02:25 | NURSING ---
REVIEWED AND AGREE WITH AUTOMOTIVE STARTER REPAIRER'S FUNCTIONAL ASSESSMENT OF PT AND HANDOFF CHARTING.
[2019-07-14 06:38] LABS: Absolute Lymphocyte Count 1.94 X10^3/uL (0.83-4.51); Absolute Neutrophil Count 3.7 X10^3/uL (2.0-7.7); Basophil# 0.02 X10^3/uL; Basophil% 0.3 % (0-1); Eosinophil# 0.42 X10^3/uL; Eosinophils% 6.1 % (0-5); Hematocrit 35.9 % (37-47); Hemoglobin 11.2 g/dL (12.0-15.0); Lymphocyte # 1.94 X10^3/ul (4.0); Mean Corp Hgb Conc 31.2 g/dL (32-36); Mean Corpuscular Hgb 29.4 pg (27.0-32.0); Mean Corpuscular Volume 94.2 fL (81-99); Mean Platelet Vol. 10.8 fl (6.2-12.0); Monocyte# 0.88 X10^3/uL; Monocyte% 12.7 % (0-10); NRBC Flagged by Analyzer 0 % (0-5); Neutrophil # 3.66 X10^3/uL (2.7-7.7); Neutrophil % 52.6 % (47-70); Platelet Count 254 K/mm3 (150-450); RBC Distribution Width CV 13.7 % (11.6-14.6); RBC Distribution Width SD 46.5 fl (35.1-43.9); Red Blood Count 3.81 M/mm3 (4.2-5.4); White Blood Count 6.9 K/mm3 (4.4-11.0)
[2019-07-14 06:51] LABS: Anion Gap 6 (5-15); BUN 34 mg/dL (7-18); BUN/Creat Ratio 34.7 RATIO (10-20); Calcium,Total 9.6 mg/dL (8.5-10.1); Chloride 101 mmol/L (98-107); Creatinine, Serum 0.98 mg/dL (0.55-1.02); EST Glomerular Filtration Rate 58 mL/min (>60); Est Glom Filt Rate - Afr Amer 71 mL/min (>60); Estimated Creatinine Clearance 46.01 ml/min; Glucose 99 mg/dL (74-106); Potassium 3.7 mmol/L (3.5-5.1); Sodium Level 141 mmol/L (136-145)
[2019-07-14] MEDS: Jevity 1.5. 1,000 ML Bottle 240 ML GT ×5 (07:05→20:35)
[2019-07-14] MEDS: Acetaminophen 650 MG/20 ML UDC 1000 MG GT ×3 (07:05→20:34)
[2019-07-14 07:11] VITALS: BP 122/67; PULSE 64; RESP 18; TEMP 36.7; O2SAT 94
[2019-07-14] MEDS: APIXABAN 5 MG TABLET GT ×2 (08:02→20:35)
[2019-07-14] MEDS: Losartan Potassium 100 MG Tablet GT (08:03)
[2019-07-14] MEDS: hydroCHLOROthiazide 25 MG Tablet GT (08:03)
[2019-07-14] MEDS: Flecainide 100 MG Tablet GT ×2 (08:03→20:33)
[2019-07-14] MEDS: Carvedilol 12.5 MG Tablet GT ×2 (08:03→20:36)
[2019-07-14] MEDS: Famotidine 20 MG Tablet GT (08:03)
[2019-07-14] MEDS: amLODIPine 5 MG Tablet PO (08:04)
[2019-07-14] MEDS: DULoxetine Hcl 60 MG Capsule PO (08:04)
[2019-07-14] MEDS: Loperamide 2 MG Capsule PO (08:34)
[2019-07-14] MEDS: Menthol/Lanolin/Calamine/Znox 113 GM Tube 1 APPLIC TOPICAL ×2 (08:35→20:36)
[2019-07-14 10:34] VITALS: BMI 23.8
[2019-07-14 14:10] VITALS: BP 138/70; PULSE 70
[2019-07-14 20:00] VITALS: BP 156/73; PULSE 60; RESP 16; TEMP 36.6; O2SAT 97; BMI 23.8
[2019-07-14] MEDS: Atorvastatin Calcium 40 MG Tablet GT (20:33)
[2019-07-14] MEDS: Latanoprost 0.005% 1 Bottle 1 DRP EACH EYE (20:34)
[2019-07-14] MEDS: QUEtiapine 25 MG Tablet GT (20:35)
--- NOTE | 2019-07-15 04:13 | NURSING ---
REVIEWED AND AGREE WITH CORN GRINDER'S FUNCTIONAL ASSESSMENT AND HANDOFF CHARTING.
[2019-07-15] MEDS: Acetaminophen 650 MG/20 ML UDC 1000 MG GT ×3 (05:21→20:07)
[2019-07-15] MEDS: Jevity 1.5. 1,000 ML Bottle 240 ML GT ×5 (05:22→20:07)
[2019-07-15 07:08] VITALS: BP 106/63; PULSE 64; RESP 16; TEMP 36.6; O2SAT 94
[2019-07-15] MEDS: Losartan Potassium 100 MG Tablet GT (09:43)
[2019-07-15] MEDS: Flecainide 100 MG Tablet GT ×2 (09:43→20:06)
[2019-07-15] MEDS: hydroCHLOROthiazide 25 MG Tablet GT (09:43)
[2019-07-15] MEDS: DULoxetine Hcl 60 MG Capsule PO (09:43)
[2019-07-15] MEDS: Carvedilol 12.5 MG Tablet GT ×2 (09:43→20:06)
[2019-07-15] MEDS: amLODIPine 5 MG Tablet PO (09:43)
[2019-07-15] MEDS: Famotidine 20 MG Tablet GT (09:43)
[2019-07-15] MEDS: APIXABAN 5 MG TABLET GT ×2 (09:43→20:06)
[2019-07-15] MEDS: Menthol/Lanolin/Calamine/Znox 113 GM Tube 1 APPLIC TOPICAL ×2 (09:44→20:09)
--- NOTE | 2019-07-15 09:54 | CASEMGMT ---
Social Work IDT met with patient, son, daughter and DIL for Team Meeting. Discussed patient's progress in therapy. Patient was alert for entirety of Team meeting. Pt still not recognizing left arm or leg as own body. Pt is walking at 20 ft at wall rail at mod assist with w/c follow. Left leg still crossing over midline. Pt is mod assist for sitting to standing and stand pivot transfers, Pt. max x1 and SBA x1 for toilet and tub transfers for OT, max for UE ADLS, total for LE ADLS and min for grooming. ST continues to work on swallowing exercises and will begin to trial puree and thickened liquids. Pt continues to have trouble concentrating with cognitive tasks, and needing max cues with left visual neglect but seeing some progress. Pt experiencing pain in left shoulder - physician to order ortho consult. Explained insurance update 07/16 and continued stay is not guaranteed. The plan is still for pt to transfer to [facility] or [facility]. Will continue to follow. Shannan Mcclellan, PRODUCT INFO SPECIALIST STEEL MOLDER
--- NOTE | 2019-07-15 12:14 | PCM.PN.NEU ---
Subjective: No issues overnight. Case discussed with the nursing staff. Staffed in the team meeting today. All questions were answered. Further therapy details per PT/OT/ST notes. Per patient she continues to have some left shoulder pain, is in sling again, per piano case maker and nursing home aide orthopedics will not come to see a consult in the rehab, not sure if insurance will allow transportation of the patient to see the orthopedic surgeon. Will obtain a pain management consult for now. - Physical Exam Vitals/I&O's: Vital Signs Temp Pulse Resp BP Pulse Ox 97.8 F 64 16 106/63 94 07/15/19 07:08 07/15/19 07:08 07/15/19 07:08 07/15/19 07:08 07/15/19 07:08 Oxygen Delivery Method Room Air Weight: 66.4 kg Body Mass Index (BMI) 23.8 Finger Stick Blood Glucose 143 Intake and Output for Last 24 Hours 07/13/19 07/14/19 07/15/19 23:59 23:59 23:59 Intake Total 2049 / 0 2860 / 2860 420 / 420 Output Total 1000 / 1000 1025 / 1025 Balance 1050 / 1050 1835 / 1835 420 / 420 General: Alert HEENT: Normocephalic Neck: Supple Lungs: Normal air movement Cardiovascular: Normal S1, Normal S2 Abdomen: Bowel Sounds Present Extremities: No cyanosis Neurological: - - Conscious, alert, CN II to XII grossly intact except 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, power 5/5 right upper and lower extremities, 2/5 Left UE, 3/5 left LE, plantars right flexor, left mute, no pronator drift, left sensory loss with left sensory neglect, no cerebellar signs, gait deferred, reflexes + B/L B/S/T/K/A, dysarthria +,No NR, fundus not visualized Psych/Mental Status: Normal Affect Current Medications Acetaminophen (Tylenol Liquid) 1,000 mg GT TID [facility] Last Admin: 07/15/19 05:21 Dose: 1,000 mg Documented by: Amlodipine Besylate (Norvasc) 5 mg PO DAILY [facility] Last Admin: 07/15/19 09:43 Dose: 5 mg Documented by: Apixaban (Eliquis) 5 mg GT BID [facility] Last Admin: 07/15/19 09:43 Dose: 5 mg Documented by: Atorvastatin Calcium (Lipitor) 40 mg GT QHS [facility] Last Admin: 07/14/19 20:33 Dose: 40 mg Documented by: Bisacodyl (Dulcolax) 10 mg RECTAL .PRN X 1 PRN PRN Reason: Constipation Calamine/Phenol (Calmoseptine Ointment) 1 applic TOPICAL BID [facility]; Protocol Last Admin: 07/15/19 09:44 Dose: 1 applicatio Documented by: Carvedilol (Coreg) 12.5 mg GT BID [facility] Last Admin: 07/15/19 09:43 Dose: 12.5 mg Documented by: Duloxetine HCl (Cymbalta) 60 mg PO DAILY [facility] Last Admin: 07/15/19 09:43 Dose: 60 mg Documented by: Enteral Nutritional Formula (Jevity 1.5) 240 ml GT 5X/DAY [facility] Last Admin: 07/15/19 09:44 Dose: 240 ml Documented by: Famotidine (Pepcid) 20 mg GT DAILY [facility] Last Admin: 07/15/19 09:43 Dose: 20 mg Documented by: Flecainide Acetate (Tambocor) 100 mg GT BID [facility] Last Admin: 07/15/19 09:43 Dose: 100 mg Documented by: Hydrochlorothiazide (Hctz) 25 mg GT DAILY [facility] Last Admin: 07/15/19 09:43 Dose: 25 mg Documented by: Lactobacillus Acidophilus (Acidophilus) 1 tablet GT BID [facility] Last Admin: 07/15/19 09:43 Dose: 1 tablet Documented by: Latanoprost (Xalatan Opthalmic) 1 drop EACH EYE DAILY@2200 [facility] Last Admin: 07/14/19 20:34 Dose: 1 drop Documented by: Loperamide HCl (Imodium) 2 mg PO Q4H PRN PRN PRN Reason: DIARRHEA/LOOSE STOOLS Last Admin: 07/14/19 08:34 Dose: 2 mg Documented by: Losartan Potassium (Cozaar) 100 mg GT DAILY [facility] Last Admin: 07/15/19 09:43 Dose: 100 mg Documented by: Magnesium Hydroxide (Milk Of Magnesia) 30 ml PO .PRN X 1 PRN PRN Reason: Constipation Last Admin: 07/08/19 17:32 Dose: 30 ml Documented by: Multi-Ingredient Cream (Eucerin) 1 applic TOPICAL TID PRN PRN; Protocol PRN Reason: Dry Skin Potassium Chloride (Potassium Chl Soln) 20 meq GT DAILY [facility] Last Admin: 07/15/19 09:44 Dose: 20 meq Documented by: Quetiapine Fumarate (Seroquel) 25 mg GT DAILY@1999 [facility] Last Admin: 07/14/19 20:35 Dose: 25 mg Documented by: Sodium Chloride () 5 - 15 ml IV UD PRN PRN Reason: SALINE FLUSH Last Admin: 06/19/19 06:13 Dose: 10 ml Documented by: Medical Necessity - Tobacco Use Smoking Status: Never smoker Tobacco Use: Non-smoker Assessment/Plan All Active Problems (Last Reviewed 07/09/19 @ 07:57 by Kathi Shields) CVA (cerebral vascular accident) (Acute 05/2019) The patient is a 79 year old F with PMH of HTN, HLD, CAD, DM type II, A-fib with RVR, pacemaker, RUDY, anxiety and depression admitted to [facility] on 06/06/2019 with debility secondary to right MCA with right M1 occlusion s/p post thrombectomy, for > 3 hours of therapy daily with a goal of returning home at or near her prior level of independence. She presented to [facility] ER on 05/23/2019 due to patient was found laying on the ground in her garage with left-sided deficits. NIH was 20. CT of brain suggestive of thrombus in the right MCA and an early infarct in the right MCA territory. CTA head and neck with contrast impression right MCA occlusion. No TPA and patient was transferred to [facility]. On 05/23/19, neurosurgeon Dr. Doll formed the right MCA thrombectomy, due to right DE occlusion. Postprocedural right ICA arteriogram demonstrated TICI?2b revascularization. CT of head without contrast on 06/04/2019 right MCA territory infarct with decrease edema noted in resolution of previously noted mass-effect of the right lateral ventricle and resolution of previously noted midline shift. Scattered hemorrhage within the infarct is less well. No new hemorrhage is identified.. Unable to obtain MRI due to pacemaker. TTE done which showed ejection fraction 65 to 70% and RVSP 41-45 mmHg. LDL 116, HgbA1c 6.5%. Prior to hospitalization patient was on Xarelto 15 mg daily for A. fib, was discontinued by [facility]. Plan - PT for gait stability - OT for ADLs - ST - PEG placement 10/10/19 - Right MCA infarct post thrombectomy on statin, asa, antihypertensives. Repeat CT head 06/10/2019 shows stable right MCA stroke with no new hemorrhage. Eliquis 5 mg p.o. twice daily started from 06/14/2019 post PEG placement, stroke initially occurred on 05/23/2019. Aspirin stopped once Eliquis was started, as per patient she was not on aspirin at home at baseline. - HTN on Losartan, HCTZ, amlodipine and Coreg. Goal blood pressure less than 130/80, avoid hypotension. Started on amlodipine from 07/11/2019. Tolerating medication well. - A-fib- on flecainide xeralto discontinued by [facility]. Here started on Eliquis 5 mg p.o. twice daily from 06/14/2019 after PEG placed on 06/13/19, stroke initially occurred on 05/23/2019. - DM- metformin on hold, accuchecks ac/hs, HgbA1c 6.4% - S/P PEG- on jevity and sterile water flushes - Left shoulder in sling-possible shoulder dislocation, per PT/OT could have occurred few days ago, left shoulder Xray-Acromioclavicular arthrosis, Orthopedic consult. Further management per orthopedics recommendations - HLD on lipitor LDL 116 - RUDY stable 06/15/19 H/H 10.3/31.7 - Anxiety/depression on cymbalta - Insomnia/visual hallucinations-on Seroquel - GI/DVT prophylaxis pepcid/Eliquis, knee high nataly hose - Further medical management per hospitalist-consult - Analgesics as needed - Bowel protocol - F/U neurosurgeon Dr. Harrison, PCP, neurology, cardiology
[2019-07-15 12:58] VITALS: BMI 23.8
[2019-07-15 19:29] VITALS: BP 131/69; PULSE 65; RESP 16; TEMP 36.8; O2SAT 92
[2019-07-15 20:00] VITALS: PULSE 65; O2SAT 92; BMI 23.8
[2019-07-15] MEDS: Atorvastatin Calcium 40 MG Tablet GT (20:06)
[2019-07-15] MEDS: QUEtiapine 25 MG Tablet GT (20:06)
[2019-07-15] MEDS: Latanoprost 0.005% 1 Bottle 1 DRP EACH EYE (20:09)
--- NOTE | 2019-07-16 04:20 | NURSING ---
Reviewed and agree with SECURITY SHIFT SUPERVISOR documentation and charting.
[2019-07-16] MEDS: Acetaminophen 650 MG/20 ML UDC 1000 MG GT ×3 (05:00→20:25)
[2019-07-16] MEDS: Jevity 1.5. 1,000 ML Bottle 240 ML GT ×5 (05:01→20:26)
[2019-07-16 07:39] VITALS: BP 160/91; PULSE 63; RESP 16; TEMP 36.3; O2SAT 98
[2019-07-16] MEDS: DULoxetine Hcl 60 MG Capsule PO (09:56)
[2019-07-16] MEDS: APIXABAN 5 MG TABLET GT ×2 (09:56→20:27)
[2019-07-16] MEDS: amLODIPine 5 MG Tablet PO (09:56)
[2019-07-16] MEDS: Losartan Potassium 100 MG Tablet GT (09:56)
[2019-07-16] MEDS: Flecainide 100 MG Tablet GT ×2 (09:56→20:26)
[2019-07-16] MEDS: Famotidine 20 MG Tablet GT (09:56)
[2019-07-16] MEDS: Carvedilol 12.5 MG Tablet GT ×2 (09:56→20:27)
[2019-07-16] MEDS: hydroCHLOROthiazide 25 MG Tablet GT (09:57)
[2019-07-16] MEDS: Menthol/Lanolin/Calamine/Znox 113 GM Tube 1 APPLIC TOPICAL ×2 (09:58→20:27)
--- NOTE | 2019-07-16 10:50 | CASEMGMT ---
Social Work Insurance approved pt with [facility] 07/23. Spoke with daughter, Angela, to notify. Will ReTeam 07/22. Will continue to follow. Shannan Mcclellan MSW ACTING INSTRUCTOR
--- NOTE | 2019-07-16 11:46 | PCM.PN.NEU ---
Subjective: No issues overnight. Care discussed with the nursing staff. Will increase amlodipine to 10 mg p.o. once daily as systolic blood pressure is 160 mmHg - Physical Exam Vitals/I&O's: Vital Signs Temp Pulse Resp BP Pulse Ox 97.4 F L 63 16 160/91 H 98 07/16/19 07:39 07/16/19 07:39 07/16/19 07:39 07/16/19 07:39 07/16/19 07:39 Oxygen Delivery Method Room Air Weight: 64.2 kg Body Mass Index (BMI) 23.8 Finger Stick Blood Glucose 143 Intake and Output for Last 24 Hours 07/14/19 07/15/19 07/16/19 23:59 23:59 23:59 Intake Total 2860 / 2860 1670 / 1670 810 / 810 Output Total 1025 / 1025 550 / 550 200 / 200 Balance 1835 / 1835 1120 / 1120 610 / 610 General: Alert HEENT: Normocephalic Neck: Supple Lungs: Normal air movement Cardiovascular: Normal S1, Normal S2 Abdomen: Bowel Sounds Present Extremities: No cyanosis Neurological: - - Conscious, alert, CN II to XII grossly intact except 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, power 5/5 right upper and lower extremities, 2/5 Left UE, 3/5 left LE, plantars right flexor, left mute, no pronator drift, left sensory loss with left sensory neglect, no cerebellar signs, gait deferred, reflexes + B/L B/S/T/K/A, dysarthria +,No NR, fundus not visualized Psych/Mental Status: Normal Affect Current Medications Acetaminophen (Tylenol Liquid) 1,000 mg GT TID [facility] Last Admin: 07/16/19 05:00 Dose: 1,000 mg Documented by: Amlodipine Besylate (Norvasc) 5 mg PO DAILY [facility] Last Admin: 07/16/19 09:56 Dose: 5 mg Documented by: Apixaban (Eliquis) 5 mg GT BID [facility] Last Admin: 07/16/19 09:56 Dose: 5 mg Documented by: Atorvastatin Calcium (Lipitor) 40 mg GT QHS [facility] Last Admin: 07/15/19 20:06 Dose: 40 mg Documented by: Bisacodyl (Dulcolax) 10 mg RECTAL .PRN X 1 PRN PRN Reason: Constipation Calamine/Phenol (Calmoseptine Ointment) 1 applic TOPICAL BID [facility]; Protocol Last Admin: 07/16/19 09:58 Dose: 1 applicatio Documented by: Carvedilol (Coreg) 12.5 mg GT BID [facility] Last Admin: 07/16/19 09:56 Dose: 12.5 mg Documented by: Duloxetine HCl (Cymbalta) 60 mg PO DAILY [facility] Last Admin: 07/16/19 09:56 Dose: 60 mg Documented by: Enteral Nutritional Formula (Jevity 1.5) 240 ml GT 5X/DAY [facility] Last Admin: 07/16/19 09:57 Dose: 240 ml Documented by: Famotidine (Pepcid) 20 mg GT DAILY [facility] Last Admin: 07/16/19 09:56 Dose: 20 mg Documented by: Flecainide Acetate (Tambocor) 100 mg GT BID [facility] Last Admin: 07/16/19 09:56 Dose: 100 mg Documented by: Hydrochlorothiazide (Hctz) 25 mg GT DAILY [facility] Last Admin: 07/16/19 09:57 Dose: 25 mg Documented by: Lactobacillus Acidophilus (Acidophilus) 1 tablet GT BID [facility] Last Admin: 07/16/19 09:56 Dose: 1 tablet Documented by: Latanoprost (Xalatan Opthalmic) 1 drop EACH EYE DAILY@2200 [facility] Last Admin: 07/15/19 20:09 Dose: 1 drop Documented by: Loperamide HCl (Imodium) 2 mg PO Q4H PRN PRN PRN Reason: DIARRHEA/LOOSE STOOLS Last Admin: 07/14/19 08:34 Dose: 2 mg Documented by: Losartan Potassium (Cozaar) 100 mg GT DAILY [facility] Last Admin: 07/16/19 09:56 Dose: 100 mg Documented by: Magnesium Hydroxide (Milk Of Magnesia) 30 ml PO .PRN X 1 PRN PRN Reason: Constipation Last Admin: 07/08/19 17:32 Dose: 30 ml Documented by: Multi-Ingredient Cream (Eucerin) 1 applic TOPICAL TID PRN PRN; Protocol PRN Reason: Dry Skin Potassium Chloride (Potassium Chl Soln) 20 meq GT DAILY [facility] Last Admin: 07/16/19 09:56 Dose: 20 meq Documented by: Quetiapine Fumarate (Seroquel) 25 mg GT DAILY@2000 [facility] Last Admin: 07/15/19 20:06 Dose: 25 mg Documented by: Sodium Chloride () 5 - 15 ml IV UD PRN PRN Reason: SALINE FLUSH Last Admin: 06/19/19 06:13 Dose: 10 ml Documented by: Medical Necessity - Tobacco Use Smoking Status: Never smoker Tobacco Use: Non-smoker Assessment/Plan All Active Problems (Last Reviewed 07/09/19 @ 07:57 by Kathi Shields) CVA (cerebral vascular accident) (Acute 05/2019) The patient is a 79 year old F with PMH of HTN, HLD, CAD, DM type II, A-fib with RVR, pacemaker, RUDY, anxiety and depression admitted to [facility] IPR on 06/06/2019 with debility secondary to right MCA with right M1 occlusion s/p post thrombectomy, for > 3 hours of therapy daily with a goal of returning home at or near her prior level of independence. She presented to [facility] ER on 05/23/2019 due to patient was found laying on the ground in her garage with left-sided deficits. NIH was 20. CT of brain suggestive of thrombus in the right MCA and an early infarct in the right MCA territory. CTA head and neck with contrast impression right MCA occlusion. No TPA and patient was transferred to [facility]. On 05/23/19, neurosurgeon Dr. Doll formed the right MCA thrombectomy, due to right [place] occlusion. Postprocedural right ICA arteriogram demonstrated TICI?2b revascularization. CT of head without contrast on 06/04/2019 right MCA territory infarct with decrease edema noted in resolution of previously noted mass-effect of the right lateral ventricle and resolution of previously noted midline shift. Scattered hemorrhage within the infarct is less well. No new hemorrhage is identified.. Unable to obtain MRI due to pacemaker. TTE done which showed ejection fraction 65 to 70% and RVSP 41-45 mmHg. LDL 116, HgbA1c 6.5%. Prior to hospitalization patient was on Xarelto 15 mg daily for A. fib, was discontinued by [facility]. Plan - PT for gait stability - OT for ADLs - ST - PEG placement 06/13/19 - Right MCA infarct post thrombectomy on statin, asa, antihypertensives. Repeat CT head 06/10/2019 shows stable right MCA stroke with no new hemorrhage. Eliquis 5 mg p.o. twice daily started from 06/14/2019 post PEG placement, stroke initially occurred on 05/23/2019. Aspirin stopped once Eliquis was started, as per patient she was not on aspirin at home at baseline. - HTN on Losartan, HCTZ, amlodipine and Coreg. Goal blood pressure less than 130/80, avoid hypotension. Started on amlodipine from 07/11/2019. Tolerating medication well. - A-fib- on flecainide xeralto discontinued by [facility]. Here started on Eliquis 5 mg p.o. twice daily from 06/14/2019 after PEG placed on 06/13/19, stroke initially occurred on 05/23/2019. - DM- metformin on hold, accuchecks ac/hs, HgbA1c 6.4% - S/P PEG- on jevity and sterile water flushes - Left shoulder in sling-possible shoulder dislocation, per PT/OT could have occurred few days ago, left shoulder Xray-Acromioclavicular arthrosis, Orthopedic consult. Further management per orthopedics recommendations - HLD on lipitor LDL 116 - RUDY stable 06/15/19 H/H 10.3/31.7 - Anxiety/depression on cymbalta - Insomnia/visual hallucinations-on Seroquel - GI/DVT prophylaxis pepcid/Eliquis, knee high nataly hose - Further medical management per hospitalist-consult - Analgesics as needed - Bowel protocol - F/U neurosurgeon Dr. Harrison, PCP, neurology, cardiology
[2019-07-16 11:49] VITALS: BMI 23.8
--- NOTE | 2019-07-16 13:24 | PCM.PROGNOTE ---
Subjective: Chief complaint: Follow-up after consultation for medical management following admission to inpatient rehabilitation unit. Patient seen and examined. No acute events overnight. Complained of left shoulder pain. She had left shoulder x-ray that revealed acromioclavicular arthrosis. She is going for steroid left shoulder injection today. Blood pressure slightly elevated, other vital signs are stable. - Physical Exam Vitals/I&O's: Vital Signs Temp Pulse Resp BP Pulse Ox 97.4 F L 63 16 160/91 H 98 07/16/19 07:39 07/16/19 07:39 07/16/19 07:39 07/16/19 07:39 07/16/19 07:39 Oxygen Delivery Method Room Air Weight: 141 lb 8.588 oz Body Mass Index (BMI) 23.8 Finger Stick Blood Glucose 143 Intake and Output for Last 24 Hours 07/14/19 07/15/19 07/16/19 23:59 23:59 23:59 Intake Total 2860 / 2860 1670 / 1670 810 / 810 Output Total 1025 / 1025 550 / 550 200 / 200 Balance 1835 / 1835 1120 / 1120 610 / 610 General: Alert, Cooperative, No apparent distress, - - Left-sided neglect. HEENT: Atraumatic, PERRLA, EOMI, Normocephalic Oral: Moist Mucosa, No Gingival or Mucosal Lesions/ Ulcerations Neck: Supple, No JVD, Negative Carotid Bruits, Trachea Midline, Thyroid Normal Size and Texture Lungs: Clear to auscultation, Normal air movement, No rhonchi, No wheeze, No rales Cardiovascular: Regular rate, Regular Rhythm, Normal S1, Normal S2 Abdomen: Bowel Sounds Present, Soft, Non Tender, Non-Distended, No Hepato-splenomegaly Extremities: No clubbing, No cyanosis, No edema Skin: No rashes, No breakdown Lymphatic: No Cervical, Supraclavicular, or Inguinal Adenopathy Neurological: Cranial nerves II-XII grossly intact, - - Left-sided hemiplegia, left-sided neglect. Psych/Mental Status: Normal Affect, Appropriate Current Medications Acetaminophen (Tylenol Liquid) 1,000 mg GT TID [facility] Last Admin: 07/16/19 05:00 Dose: 1,000 mg Documented by: Amlodipine Besylate (Norvasc) 10 mg PO DAILY [facility] Apixaban (Eliquis) 5 mg GT BID [facility] Last Admin: 07/16/19 09:56 Dose: 5 mg Documented by: Atorvastatin Calcium (Lipitor) 40 mg GT QHS [facility] Last Admin: 07/15/19 20:06 Dose: 40 mg Documented by: Bisacodyl (Dulcolax) 10 mg RECTAL .PRN X 1 PRN PRN Reason: Constipation Calamine/Phenol (Calmoseptine Ointment) 1 applic TOPICAL BID [facility]; Protocol Last Admin: 07/16/19 09:58 Dose: 1 applicatio Documented by: Carvedilol (Coreg) 12.5 mg GT BID [facility] Last Admin: 07/16/19 09:56 Dose: 12.5 mg Documented by: Duloxetine HCl (Cymbalta) 60 mg PO DAILY [facility] Last Admin: 07/16/19 09:56 Dose: 60 mg Documented by: Enteral Nutritional Formula (Jevity 1.5) 240 ml GT 5X/DAY [facility] Last Admin: 07/16/19 09:57 Dose: 240 ml Documented by: Famotidine (Pepcid) 20 mg GT DAILY [facility] Last Admin: 07/16/19 09:56 Dose: 20 mg Documented by: Flecainide Acetate (Tambocor) 100 mg GT BID [facility] Last Admin: 07/16/19 09:56 Dose: 100 mg Documented by: Hydrochlorothiazide (Hctz) 25 mg GT DAILY [facility] Last Admin: 07/16/19 09:57 Dose: 25 mg Documented by: Lactobacillus Acidophilus (Acidophilus) 1 tablet GT BID [facility] Last Admin: 07/16/19 09:56 Dose: 1 tablet Documented by: Latanoprost (Xalatan Opthalmic) 1 drop EACH EYE DAILY@2200 [facility] Last Admin: 07/15/19 20:09 Dose: 1 drop Documented by: Loperamide HCl (Imodium) 2 mg PO Q4H PRN PRN PRN Reason: DIARRHEA/LOOSE STOOLS Last Admin: 07/14/19 08:34 Dose: 2 mg Documented by: Losartan Potassium (Cozaar) 100 mg GT DAILY [facility] Last Admin: 07/16/19 09:56 Dose: 100 mg Documented by: Magnesium Hydroxide (Milk Of Magnesia) 30 ml PO .PRN X 1 PRN PRN Reason: Constipation Last Admin: 07/08/19 17:32 Dose: 30 ml Documented by: Multi-Ingredient Cream (Eucerin) 1 applic TOPICAL TID PRN PRN; Protocol PRN Reason: Dry Skin Potassium Chloride (Potassium Chl Soln) 20 meq GT DAILY [facility] Last Admin: 07/16/19 09:56 Dose: 20 meq Documented by: Quetiapine Fumarate (Seroquel) 25 mg GT DAILY@1999 [facility] Last Admin: 07/15/19 20:06 Dose: 25 mg Documented by: Sodium Chloride () 5 - 15 ml IV UD PRN PRN Reason: SALINE FLUSH Last Admin: 06/19/19 06:13 Dose: 10 ml Documented by: Triamcinolone Acetonide (Kenalog) 40 mg IM X1 ONE Stop: 07/16/19 13:15 Medical Necessity - Tobacco Use Smoking Status: Never smoker Tobacco Use: Non-smoker Assessment/Plan All Active Problems (Last Reviewed 07/09/19 @ 07:57 by Kathi Shields) CVA (cerebral vascular accident) (Acute 05/2019) This is a 79 years old female patient admitted to inpatient rehabilitation unit after she suffered a right MCA stroke with 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 #1 acute right MCA stroke: With resultant left-sided intact, left-sided hemiparesis, status post thrombectomy. Patient now able to move her left lower extremity more than left upper extremity. Remained on Eliquis and statins. Her vital signs are stable. Plan to continue PT OT according to rehab team. #2 dysphagia: Status post PEG tube placement, on tube feeds, she is tolerating tube feeds. Remained n.p.o. #3 Left acromioclavicular arthritis: Patient has been complaining of left shoulder pain. X-ray reviewed as above. Today, she is going for left shoulder steroid injection by Dr. Saunders. #4 paroxysmal atrial fibrillation: Rate is controlled, continue flecainide and Coreg for rate control, continue Eliquis for anticoagulation. #5 hypertension: Blood pressure slightly elevated today, continue Norvasc, HCTZ, losartan and Coreg. #6 type 2 diabetes mellitus: Blood sugar stable. #7 depression/anxiety: Continue Seroquel and Cymbalta. #8 DVT prophylaxis: Continue Eliquis. This note was generated with Dragon dictation software. It may contain incorrect words, spelling, and punctuation that were not noted in checking the note before signing. Code Visit Inpatient E&M: 36693 Subs Hosp L2
--- NOTE | 2019-07-16 18:45 | NURSING ---
Patient tolerated shoulder injection done by Dr. Saunders well. Left shoulder.
[2019-07-16] MEDS: Bupivacaine 0.25% 30 ML Vial IM (18:47)
[2019-07-16] MEDS: Povidone-Iodine Swabstick 1 PACKET TOPICAL (18:48)
[2019-07-16] MEDS: Triamcinolone Acetonide 40 MG/ML Vial IM (18:49)
[2019-07-16 20:00] VITALS: BP 133/76; PULSE 60; PULSE 61; RESP 16; TEMP 36.4; O2SAT 95; O2SAT 97; BMI 23.8
[2019-07-16] MEDS: Atorvastatin Calcium 40 MG Tablet GT (20:27)
[2019-07-16] MEDS: QUEtiapine 25 MG Tablet GT (20:27)
[2019-07-16] MEDS: Latanoprost 0.005% 1 Bottle 1 DRP EACH EYE (20:49)
--- NOTE | 2019-07-17 01:28 | NURSING ---
Reviewed and agree with [employer] documentation and charting.
[2019-07-17] MEDS: Acetaminophen 650 MG/20 ML UDC 1000 MG GT ×3 (06:33→20:04)
[2019-07-17] MEDS: Jevity 1.5. 1,000 ML Bottle 240 ML GT ×5 (06:34→20:04)
[2019-07-17 07:05] VITALS: BP 145/79; PULSE 62; RESP 16; TEMP 36.7; O2SAT 94
[2019-07-17] MEDS: DULoxetine Hcl 60 MG Capsule PO (08:42)
[2019-07-17] MEDS: Carvedilol 12.5 MG Tablet GT ×2 (08:42→20:04)
[2019-07-17] MEDS: Losartan Potassium 100 MG Tablet GT (08:42)
[2019-07-17] MEDS: amLODIPine 10 MG Tablet PO (08:42)
[2019-07-17] MEDS: hydroCHLOROthiazide 25 MG Tablet GT (08:42)
[2019-07-17] MEDS: APIXABAN 5 MG TABLET GT ×2 (08:42→20:04)
[2019-07-17] MEDS: Famotidine 20 MG Tablet GT (08:43)
[2019-07-17] MEDS: Flecainide 100 MG Tablet GT ×2 (08:43→20:04)
[2019-07-17] MEDS: Loperamide 2 MG Capsule PO (08:43)
[2019-07-17] MEDS: Menthol/Lanolin/Calamine/Znox 113 GM Tube 1 APPLIC TOPICAL ×2 (08:54→20:03)
--- NOTE | 2019-07-17 09:51 | PCM.PN.NEU ---
Subjective: No issues overnight. Care discussed with the nursing staff. Pain management consulted for left shoulder pain secondary to left acromioclavicular arthritis, steroid injection the left shoulder by pain management. Orthopedic consult as outpatient as orthopedics will not see patient in the rehab per practical nursing faculty. - Physical Exam Vitals/I&O's: Vital Signs Temp Pulse Resp BP Pulse Ox 98.0 F 62 16 145/79 H 94 07/17/19 07:05 07/17/19 07:05 07/17/19 07:05 07/17/19 07:05 07/17/19 07:05 Oxygen Delivery Method Room Air Weight: 64.3 kg Body Mass Index (BMI) 23.8 Finger Stick Blood Glucose 143 Intake and Output for Last 24 Hours 07/15/19 07/16/19 07/17/19 23:59 23:59 23:59 Intake Total 1670 / 1670 2500 / 2500 Output Total 550 / 550 1100 / 1100 250 / 250 Balance 1120 / 1120 1400 / 1400 -250 / -250 General: Alert HEENT: Normocephalic Neck: Supple Lungs: Normal air movement Cardiovascular: Normal S1, Normal S2 Abdomen: Bowel Sounds Present Extremities: No cyanosis Neurological: - - Conscious, alert, CN II to XII grossly intact except 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, power 5/5 right upper and lower extremities, 2/5 Left UE, 3/5 left LE, plantars right flexor, left mute, no pronator drift, left sensory loss with left sensory neglect, no cerebellar signs, gait deferred, reflexes + B/L B/S/T/K/A, dysarthria +,No NR, fundus not visualized Psych/Mental Status: Normal Affect Current Medications Acetaminophen (Tylenol Liquid) 1,000 mg GT TID [facility] Last Admin: 07/17/19 06:33 Dose: 1,000 mg Documented by: Amlodipine Besylate (Norvasc) 10 mg PO DAILY [facility] Last Admin: 07/17/19 08:42 Dose: 10 mg Documented by: Apixaban (Eliquis) 5 mg GT BID [facility] Last Admin: 07/17/19 08:42 Dose: 5 mg Documented by: Atorvastatin Calcium (Lipitor) 40 mg GT QHS [facility] Last Admin: 07/16/19 20:27 Dose: 40 mg Documented by: Bisacodyl (Dulcolax) 10 mg RECTAL .PRN X 1 PRN PRN Reason: Constipation Calamine/Phenol (Calmoseptine Ointment) 1 applic TOPICAL BID [facility]; Protocol Last Admin: 07/17/19 08:54 Dose: 1 applicatio Documented by: Carvedilol (Coreg) 12.5 mg GT BID [facility] Last Admin: 07/17/19 08:42 Dose: 12.5 mg Documented by: Duloxetine HCl (Cymbalta) 60 mg PO DAILY [facility] Last Admin: 07/17/19 08:42 Dose: 60 mg Documented by: Enteral Nutritional Formula (Jevity 1.5) 240 ml GT 5X/DAY [facility] Last Admin: 07/17/19 08:51 Dose: 240 ml Documented by: Famotidine (Pepcid) 20 mg GT DAILY [facility] Last Admin: 07/17/19 08:43 Dose: 20 mg Documented by: Flecainide Acetate (Tambocor) 100 mg GT BID [facility] Last Admin: 07/17/19 08:43 Dose: 100 mg Documented by: Hydrochlorothiazide (Hctz) 25 mg GT DAILY [facility] Last Admin: 07/17/19 08:42 Dose: 25 mg Documented by: Lactobacillus Acidophilus (Acidophilus) 1 tablet GT BID [facility] Last Admin: 07/17/19 08:42 Dose: 1 tablet Documented by: Latanoprost (Xalatan Opthalmic) 1 drop EACH EYE DAILY@2200 [facility] Last Admin: 07/16/19 20:49 Dose: 1 drop Documented by: Loperamide HCl (Imodium) 2 mg PO Q4H PRN PRN PRN Reason: DIARRHEA/LOOSE STOOLS Last Admin: 07/17/19 08:43 Dose: 2 mg Documented by: Losartan Potassium (Cozaar) 100 mg GT DAILY [facility] Last Admin: 07/17/19 08:42 Dose: 100 mg Documented by: Magnesium Hydroxide (Milk Of Magnesia) 30 ml PO .PRN X 1 PRN PRN Reason: Constipation Last Admin: 07/08/19 17:32 Dose: 30 ml Documented by: Multi-Ingredient Cream (Eucerin) 1 applic TOPICAL TID PRN PRN; Protocol PRN Reason: Dry Skin Potassium Chloride (Potassium Chl Soln) 20 meq GT DAILY [facility] Last Admin: 07/17/19 08:43 Dose: 20 meq Documented by: Quetiapine Fumarate (Seroquel) 25 mg GT DAILY@1999 [facility] Last Admin: 07/16/19 20:27 Dose: 25 mg Documented by: Sodium Chloride () 5 - 15 ml IV UD PRN PRN Reason: SALINE FLUSH Last Admin: 06/19/19 06:13 Dose: 10 ml Documented by: STROKE Vital Signs/Narrative: Vital Signs Temp Pulse Resp BP Pulse Ox 07/17/19 07:05 98.0 F 62 16 145/79 H 94 Medical Necessity - Tobacco Use Smoking Status: Never smoker Tobacco Use: Non-smoker Assessment/Plan All Active Problems (Last Reviewed 07/09/19 @ 07:57 by Kathi Shields) CVA (cerebral vascular accident) (Acute 05/2019) The patient is a 79 year old F with PMH of HTN, HLD, CAD, DM type II, A-fib with RVR, pacemaker, RUDY, anxiety and depression admitted to [facility] IPR on 06/06/2019 with debility secondary to right MCA with right M1 occlusion s/p post thrombectomy, for > 3 hours of therapy daily with a goal of returning home at or near her prior level of independence. She presented to [facility] ER on 05/23/2019 due to patient was found laying on the ground in her garage with left-sided deficits. NIH was 20. CT of brain suggestive of thrombus in the right MCA and an early infarct in the right MCA territory. CTA head and neck with contrast impression right MCA occlusion. No TPA and patient was transferred to [facility]. On 05/23/19, neurosurgeon Dr. Doll formed the right MCA thrombectomy, due to right [place] occlusion. Postprocedural right ICA arteriogram demonstrated TICI?2b revascularization. CT of head without contrast on 06/04/2019 right MCA territory infarct with decrease edema noted in resolution of previously noted mass-effect of the right lateral ventricle and resolution of previously noted midline shift. Scattered hemorrhage within the infarct is less well. No new hemorrhage is identified.. Unable to obtain MRI due to pacemaker. TTE done which showed ejection fraction 65 to 70% and RVSP 41-45 mmHg. LDL 116, HgbA1c 6.5%. Prior to hospitalization patient was on Xarelto 15 mg daily for A. fib, was discontinued by [facility]. Plan - PT for gait stability - OT for ADLs - ST - PEG placement 06/13/19 - Right MCA infarct post thrombectomy on statin, asa, antihypertensives. Repeat CT head 06/10/2019 shows stable right MCA stroke with no new hemorrhage. Eliquis 5 mg p.o. twice daily started from 06/14/2019 post PEG placement, stroke initially occurred on 05/23/2019. Aspirin stopped once Eliquis was started, as per patient she was not on aspirin at home at baseline. - HTN on Losartan, HCTZ, amlodipine and Coreg. Goal blood pressure less than 130/80, avoid hypotension. Started on amlodipine from 07/11/2019. Tolerating medication well. - A-fib- on flecainide xeralto discontinued by [facility]. Here started on Eliquis 5 mg p.o. twice daily from 06/14/2019 after PEG placed on 06/13/19, stroke initially occurred on 05/23/2019. - DM- metformin on hold, accuchecks ac/hs, HgbA1c 6.4% -Left acromioclavicular arthritis?pain management consult, steroid injections per pain management, will defer further medical evaluation and management to pain management. Orthopedic consult as outpatient as orthopedics will not be seeing patients in the rehab.. - S/P PEG- on jevity and sterile water flushes - HLD on lipitor LDL 116 - RUDY stable 06/15/19 H/H 10.3/31.7 - Anxiety/depression on cymbalta - Insomnia/visual hallucinations-on Seroquel - GI/DVT prophylaxis pepcid/Eliquis, knee high nataly hose - Further medical management per hospitalist-consult - Analgesics as needed - Bowel protocol - F/U neurosurgeon Dr. Harrison, PCP, neurology, cardiology, orthopedics and pain management
[2019-07-17 11:37] VITALS: BMI 23.8
[2019-07-17 15:00] VITALS: BP 151/86; PULSE 67
[2019-07-17 20:00] VITALS: BP 143/82; PULSE 63; RESP 16; TEMP 36.8; O2SAT 94
[2019-07-17] MEDS: QUEtiapine 25 MG Tablet GT (20:03)
[2019-07-17] MEDS: Atorvastatin Calcium 40 MG Tablet GT (20:04)
[2019-07-17] MEDS: Latanoprost 0.005% 1 Bottle 1 DRP EACH EYE (20:05)
[2019-07-17 22:59] VITALS: BMI 23.8
--- NOTE | 2019-07-18 03:42 | NURSING ---
REVIEWED AND AGREE WITH DIRECTOR OF [employer]ATE[employer]'S FUNCTIONAL ASSESSMENT AND HANDOFF CHARTING.
[2019-07-18] MEDS: Acetaminophen 650 MG/20 ML UDC 1000 MG GT ×3 (05:12→20:29)
[2019-07-18] MEDS: Jevity 1.5. 1,000 ML Bottle 240 ML GT ×5 (05:13→20:29)
[2019-07-18 07:51] VITALS: BP 144/76; PULSE 60; RESP 16; TEMP 36.6; O2SAT 97
[2019-07-18 09:45] VITALS: BMI 23.8
[2019-07-18] MEDS: Carvedilol 12.5 MG Tablet GT ×2 (10:11→20:28)
[2019-07-18] MEDS: Menthol/Lanolin/Calamine/Znox 113 GM Tube 1 APPLIC TOPICAL ×2 (10:11→20:28)
[2019-07-18] MEDS: Famotidine 20 MG Tablet GT (10:12)
[2019-07-18] MEDS: amLODIPine 10 MG Tablet PO (10:12)
[2019-07-18] MEDS: Losartan Potassium 100 MG Tablet GT (10:12)
[2019-07-18] MEDS: APIXABAN 5 MG TABLET GT ×2 (10:12→20:28)
[2019-07-18] MEDS: DULoxetine Hcl 60 MG Capsule PO (10:12)
[2019-07-18] MEDS: hydroCHLOROthiazide 25 MG Tablet GT (10:12)
[2019-07-18] MEDS: Flecainide 100 MG Tablet GT ×2 (10:13→20:29)
--- NOTE | 2019-07-18 11:24 | PCM.PN.NEU ---
Subjective: No issues overnight. Care discussed with the nursing staff. - Physical Exam Vitals/I&O's: Vital Signs Temp Pulse Resp BP Pulse Ox 97.9 F 60 16 144/76 H 97 07/18/19 07:51 07/18/19 07:51 07/18/19 07:51 07/18/19 07:51 07/18/19 07:51 Oxygen Delivery Method Room Air Weight: 66 kg Body Mass Index (BMI) 23.8 Finger Stick Blood Glucose 143 Intake and Output for Last 24 Hours 07/16/19 07/17/19 07/18/19 23:59 23:59 23:59 Intake Total 2500 / 2500 2980 / 2980 1170 / 1170 Output Total 1100 / 1100 1825 / 1825 500 / 500 Balance 1400 / 1400 1155 / 1155 670 / 670 General: Alert HEENT: Normocephalic Neck: Supple Lungs: Normal air movement Cardiovascular: Normal S1, Normal S2 Abdomen: Bowel Sounds Present Extremities: No cyanosis Neurological: - - Conscious, alert, CN II to XII grossly intact except 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, power 5/5 right upper and lower extremities, 2/5 Left UE, 3/5 left LE, plantars right flexor, left mute, no pronator drift, left sensory loss with left sensory neglect, no cerebellar signs, gait deferred, reflexes + B/L B/S/T/K/A, dysarthria +,No NR, fundus not visualized Psych/Mental Status: Normal Affect Current Medications Acetaminophen (Tylenol Liquid) 1,000 mg GT TID [facility] Last Admin: 07/18/19 05:12 Dose: 1,000 mg Documented by: Amlodipine Besylate (Norvasc) 10 mg PO DAILY [facility] Last Admin: 07/18/19 10:12 Dose: 10 mg Documented by: Apixaban (Eliquis) 5 mg GT BID [facility] Last Admin: 07/18/19 10:12 Dose: 5 mg Documented by: Atorvastatin Calcium (Lipitor) 40 mg GT QHS [facility] Last Admin: 07/17/19 20:04 Dose: 40 mg Documented by: Bisacodyl (Dulcolax) 10 mg RECTAL .PRN X 1 PRN PRN Reason: Constipation Calamine/Phenol (Calmoseptine Ointment) 1 applic TOPICAL BID [facility]; Protocol Last Admin: 07/18/19 10:11 Dose: 1 applicatio Documented by: Carvedilol (Coreg) 12.5 mg GT BID [facility] Last Admin: 07/18/19 10:11 Dose: 12.5 mg Documented by: Duloxetine HCl (Cymbalta) 60 mg PO DAILY [facility] Last Admin: 07/18/19 10:12 Dose: 60 mg Documented by: Enteral Nutritional Formula (Jevity 1.5) 240 ml GT 5X/DAY [facility] Last Admin: 07/18/19 10:12 Dose: 240 ml Documented by: Famotidine (Pepcid) 20 mg GT DAILY [facility] Last Admin: 07/18/19 10:12 Dose: 20 mg Documented by: Flecainide Acetate (Tambocor) 100 mg GT BID [facility] Last Admin: 07/18/19 10:13 Dose: 100 mg Documented by: Hydrochlorothiazide (Hctz) 25 mg GT DAILY [facility] Last Admin: 07/18/19 10:12 Dose: 25 mg Documented by: Lactobacillus Acidophilus (Acidophilus) 1 tablet GT BID [facility] Last Admin: 07/18/19 10:11 Dose: 1 tablet Documented by: Latanoprost (Xalatan Opthalmic) 1 drop EACH EYE DAILY@2200 [facility] Last Admin: 07/17/19 20:05 Dose: 1 drop Documented by: Loperamide HCl (Imodium) 2 mg PO Q4H PRN PRN PRN Reason: DIARRHEA/LOOSE STOOLS Last Admin: 07/17/19 08:43 Dose: 2 mg Documented by: Losartan Potassium (Cozaar) 100 mg GT DAILY [facility] Last Admin: 07/18/19 10:12 Dose: 100 mg Documented by: Magnesium Hydroxide (Milk Of Magnesia) 30 ml PO .PRN X 1 PRN PRN Reason: Constipation Last Admin: 07/08/19 17:32 Dose: 30 ml Documented by: Multi-Ingredient Cream (Eucerin) 1 applic TOPICAL TID PRN PRN; Protocol PRN Reason: Dry Skin Potassium Chloride (Potassium Chl Soln) 20 meq GT DAILY [facility] Last Admin: 07/18/19 10:12 Dose: 20 meq Documented by: Quetiapine Fumarate (Seroquel) 25 mg GT DAILY@2000 [facility] Last Admin: 07/17/19 20:03 Dose: 25 mg Documented by: Sodium Chloride () 5 - 15 ml IV UD PRN PRN Reason: SALINE FLUSH Last Admin: 06/19/19 06:13 Dose: 10 ml Documented by: STROKE Vital Signs/Narrative: Vital Signs Temp Pulse Resp BP Pulse Ox 07/18/19 07:51 97.9 F 60 16 144/76 H 97 Medical Necessity - Tobacco Use Smoking Status: Never smoker Tobacco Use: Non-smoker Assessment/Plan All Active Problems (Last Reviewed 07/09/19 @ 07:57 by Kathi Shields) CVA (cerebral vascular accident) (Acute 05/2019) The patient is a 79 year old F with PMH of HTN, HLD, CAD, DM type II, A-fib with RVR, pacemaker, RUDY, anxiety and depression admitted to [facility]PR on 06/06/2019 with debility secondary to right MCA with right M1 occlusion s/p post thrombectomy, for > 3 hours of therapy daily with a goal of returning home at or near her prior level of independence. She presented to [facility] ER on 05/23/2019 due to patient was found laying on the ground in her garage with left-sided deficits. NIH was 20. CT of brain suggestive of thrombus in the right MCA and an early infarct in the right MCA territory. CTA head and neck with contrast impression right MCA occlusion. No TPA and patient was transferred to [facility]. On 05/23/19, neurosurgeon Dr. Doll formed the right MCA thrombectomy, due to right [place] occlusion. Postprocedural right ICA arteriogram demonstrated TICI?2b revascularization. CT of head without contrast on 06/04/2019 right MCA territory infarct with decrease edema noted in resolution of previously noted mass-effect of the right lateral ventricle and resolution of previously noted midline shift. Scattered hemorrhage within the infarct is less well. No new hemorrhage is identified.. Unable to obtain MRI due to pacemaker. TTE done which showed ejection fraction 65 to 70% and RVSP 41-45 mmHg. LDL 116, HgbA1c 6.5%. Prior to hospitalization patient was on Xarelto 15 mg daily for A. fib, was discontinued by [facility]. Plan - PT for gait stability - OT for ADLs - ST - PEG placement 06/13/19 - Right MCA infarct post thrombectomy on statin, asa, antihypertensives. Repeat CT head 06/10/2019 shows stable right MCA stroke with no new hemorrhage. Eliquis 5 mg p.o. twice daily started from 06/14/2019 post PEG placement, stroke initially occurred on 05/23/2019. Aspirin stopped once Eliquis was started, as per patient she was not on aspirin at home at baseline. - HTN on Losartan, HCTZ, amlodipine and Coreg. Goal blood pressure less than 130/80, avoid hypotension. Started on amlodipine from 07/11/2019. Tolerating medication well. - A-fib- on flecainide xeralto discontinued by [facility]. Here started on Eliquis 5 mg p.o. twice daily from 06/14/2019 after PEG placed on 06/13/19, stroke initially occurred on 05/23/2019. - DM- metformin on hold, accuchecks ac/hs, HgbA1c 6.4% -Left acromioclavicular arthritis?pain management consult, steroid injections per pain management, will defer further medical evaluation and management to pain management. Orthopedic consult as outpatient as orthopedics will not be seeing patients in the rehab.. - S/P PEG- on jevity and sterile water flushes - HLD on lipitor LDL 116 - RUDY stable 06/15/19 H/H 10.3/31.7 - Anxiety/depression on cymbalta - Insomnia/visual hallucinations-on Seroquel - GI/DVT prophylaxis pepcid/Eliquis, knee high nataly hose - Further medical management per hospitalist-consult - Analgesics as needed - Bowel protocol - F/U neurosurgeon Dr. Harrison, PCP, neurology, cardiology, orthopedics and pain management
[2019-07-18] MEDS: QUEtiapine 25 MG Tablet GT (20:28)
[2019-07-18] MEDS: Latanoprost 0.005% 1 Bottle 1 DRP EACH EYE (20:29)
[2019-07-18] MEDS: Atorvastatin Calcium 40 MG Tablet GT (20:29)
[2019-07-18 22:00] VITALS: BP 133/76; PULSE 66; RESP 18; TEMP 36.8; O2SAT 94
[2019-07-18 23:08] VITALS: BMI 23.8
--- NOTE | 2019-07-19 03:24 | NURSING ---
Reviewed and agree with LPNs fims and handoff
[2019-07-19] MEDS: Acetaminophen 650 MG/20 ML UDC 1000 MG GT ×3 (06:03→19:54)
[2019-07-19] MEDS: Jevity 1.5. 1,000 ML Bottle 240 ML GT ×5 (06:03→19:53)
[2019-07-19 10:00] VITALS: BP 148/82; PULSE 64; RESP 17; TEMP 36.7; O2SAT 92
[2019-07-19] MEDS: Flecainide 100 MG Tablet GT ×2 (10:10→19:54)
[2019-07-19] MEDS: Famotidine 20 MG Tablet GT (10:10)
[2019-07-19] MEDS: hydroCHLOROthiazide 25 MG Tablet GT (10:11)
[2019-07-19] MEDS: Losartan Potassium 100 MG Tablet GT (10:11)
[2019-07-19] MEDS: DULoxetine Hcl 60 MG Capsule PO (10:11)
[2019-07-19] MEDS: Carvedilol 12.5 MG Tablet GT ×2 (10:11→19:53)
[2019-07-19] MEDS: amLODIPine 10 MG Tablet PO (10:11)
[2019-07-19] MEDS: APIXABAN 5 MG TABLET GT ×2 (10:11→19:53)
[2019-07-19] MEDS: Menthol/Lanolin/Calamine/Znox 113 GM Tube 1 APPLIC TOPICAL ×2 (10:26→19:53)
--- NOTE | 2019-07-19 13:12 | PCM.PN.NEU ---
Subjective: No issues overnight. Care discussed with the nursing staff. - Physical Exam Vitals/I&O's: Vital Signs Temp Pulse Resp BP Pulse Ox 98.0 F 64 17 148/82 H 92 07/19/19 10:00 07/19/19 10:00 07/19/19 10:00 07/19/19 10:00 07/19/19 10:00 Oxygen Delivery Method Room Air Weight: 66.2 kg Body Mass Index (BMI) 23.8 Finger Stick Blood Glucose 143 Intake and Output for Last 24 Hours 07/17/19 07/18/19 07/19/19 23:59 23:59 23:59 Intake Total 2980 / 2980 1950 / 1950 390 / 390 Output Total 1825 / 1825 700 / 700 Balance 1155 / 1155 1250 / 1250 390 / 390 General: Alert HEENT: Normocephalic Neck: Supple Lungs: Normal air movement Cardiovascular: Normal S1, Normal S2 Abdomen: Bowel Sounds Present Extremities: No cyanosis Neurological: - - Conscious, alert, CN II to XII grossly intact except 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, power 5/5 right upper and lower extremities, 2/5 Left UE, 3/5 left LE, plantars right flexor, left mute, no pronator drift, left sensory loss with left sensory neglect, no cerebellar signs, gait deferred, reflexes + B/L B/S/T/K/A, dysarthria +,No NR, fundus not visualized Psych/Mental Status: Normal Affect Current Medications Acetaminophen (Tylenol Liquid) 1,000 mg GT TID [facility]PL[facility] Last Admin: 07/19/19 06:03 Dose: 1,000 mg Documented by: Amlodipine Besylate (Norvasc) 10 mg PO DAILY [facility] Last Admin: 07/19/19 10:11 Dose: 10 mg Documented by: Apixaban (Eliquis) 5 mg GT BID [facility] Last Admin: 07/19/19 10:11 Dose: 5 mg Documented by: Atorvastatin Calcium (Lipitor) 40 mg GT QHS [facility] Last Admin: 07/18/19 20:29 Dose: 40 mg Documented by: Bisacodyl (Dulcolax) 10 mg RECTAL .PRN X 1 PRN PRN Reason: Constipation Calamine/Phenol (Calmoseptine Ointment) 1 applic TOPICAL BID [facility]; Protocol Last Admin: 07/19/19 10:26 Dose: 1 applicatio Documented by: Carvedilol (Coreg) 12.5 mg GT BID [facility] Last Admin: 07/19/19 10:11 Dose: 12.5 mg Documented by: Duloxetine HCl (Cymbalta) 60 mg PO DAILY [facility] Last Admin: 07/19/19 10:11 Dose: 60 mg Documented by: Enteral Nutritional Formula (Jevity 1.5) 240 ml GT 5X/DAY [facility] Last Admin: 07/19/19 10:11 Dose: 240 ml Documented by: Famotidine (Pepcid) 20 mg GT DAILY [facility] Last Admin: 07/19/19 10:10 Dose: 20 mg Documented by: Flecainide Acetate (Tambocor) 100 mg GT BID [facility] Last Admin: 07/19/19 10:10 Dose: 100 mg Documented by: Hydrochlorothiazide (Hctz) 25 mg GT DAILY [facility] Last Admin: 07/19/19 10:11 Dose: 25 mg Documented by: Lactobacillus Acidophilus (Acidophilus) 1 tablet GT BID [facility] Last Admin: 07/19/19 10:11 Dose: 1 tablet Documented by: Latanoprost (Xalatan Opthalmic) 1 drop EACH EYE DAILY@2200 [facility] Last Admin: 07/18/19 20:29 Dose: 1 drop Documented by: Loperamide HCl (Imodium) 2 mg PO Q4H PRN PRN PRN Reason: DIARRHEA/LOOSE STOOLS Last Admin: 07/17/19 08:43 Dose: 2 mg Documented by: Losartan Potassium (Cozaar) 100 mg GT DAILY [facility] Last Admin: 07/19/19 10:11 Dose: 100 mg Documented by: Magnesium Hydroxide (Milk Of Magnesia) 30 ml PO .PRN X 1 PRN PRN Reason: Constipation Last Admin: 07/08/19 17:32 Dose: 30 ml Documented by: Multi-Ingredient Cream (Eucerin) 1 applic TOPICAL TID PRN PRN; Protocol PRN Reason: Dry Skin Potassium Chloride (Potassium Chl Soln) 20 meq GT DAILY [facility] Last Admin: 07/19/19 10:10 Dose: 20 meq Documented by: Quetiapine Fumarate (Seroquel) 25 mg GT DAILY@2000 [facility] Last Admin: 07/18/19 20:28 Dose: 25 mg Documented by: Sodium Chloride () 5 - 15 ml IV UD PRN PRN Reason: SALINE FLUSH Last Admin: 06/19/19 06:13 Dose: 10 ml Documented by: STROKE Vital Signs/Narrative: Vital Signs Temp Pulse Resp BP Pulse Ox 07/19/19 10:00 98.0 F 64 17 148/82 H 92 Medical Necessity - Tobacco Use Smoking Status: Never smoker Tobacco Use: Non-smoker Assessment/Plan All Active Problems (Last Reviewed 07/09/19 @ 07:57 by Kathi Shields) CVA (cerebral vascular accident) (Acute 05/2019) The patient is a 79 year old F with PMH of HTN, HLD, CAD, DM type II, A-fib with RVR, pacemaker, RUDY, anxiety and depression admitted to [facility]PR on 06/06/2019 with debility secondary to right MCA with right M1 occlusion s/p post thrombectomy, for > 3 hours of therapy daily with a goal of returning home at or near her prior level of independence. She presented to [facility] ER on 05/23/2019 due to patient was found laying on the ground in her garage with left-sided deficits. NIH was 20. CT of brain suggestive of thrombus in the right MCA and an early infarct in the right MCA territory. CTA head and neck with contrast impression right MCA occlusion. No TPA and patient was transferred to [facility]. On 05/23/19, neurosurgeon Dr. Doll formed the right MCA thrombectomy, due to right [place] occlusion. Postprocedural right ICA arteriogram demonstrated TICI?2b revascularization. CT of head without contrast on 06/04/2019 right MCA territory infarct with decrease edema noted in resolution of previously noted mass-effect of the right lateral ventricle and resolution of previously noted midline shift. Scattered hemorrhage within the infarct is less well. No new hemorrhage is identified.. Unable to obtain MRI due to pacemaker. TTE done which showed ejection fraction 65 to 70% and RVSP 41-45 mmHg. LDL 116, HgbA1c 6.5%. Prior to hospitalization patient was on Xarelto 15 mg daily for A. fib, was discontinued by [facility]. Plan - PT for gait stability - OT for ADLs - ST - PEG placement 06/13/19 - Right MCA infarct post thrombectomy on statin, asa, antihypertensives. Repeat CT head 06/10/2019 shows stable right MCA stroke with no new hemorrhage. Eliquis 5 mg p.o. twice daily started from 06/14/2019 post PEG placement, stroke initially occurred on 05/23/2019. Aspirin stopped once Eliquis was started, as per patient she was not on aspirin at home at baseline. - HTN on Losartan, HCTZ, amlodipine and Coreg. Goal blood pressure less than 130/80, avoid hypotension. Started on amlodipine from 07/11/2019. Tolerating medication well. - A-fib- on flecainide xeralto discontinued by [facility]. Here started on Eliquis 5 mg p.o. twice daily from 06/14/2019 after PEG placed on 06/13/19, stroke initially occurred on 05/23/2019. - DM- metformin on hold, accuchecks ac/hs, HgbA1c 6.4% -Left acromioclavicular arthritis?pain management consult, steroid injections per pain management, will defer further medical evaluation and management to pain management. Orthopedic consult as outpatient as orthopedics will not be seeing patients in the rehab.. - S/P PEG- on jevity and sterile water flushes - HLD on lipitor LDL 116 - RUDY stable 06/15/19 H/H 10.3/31.7 - Anxiety/depression on cymbalta - Insomnia/visual hallucinations-on Seroquel - GI/DVT prophylaxis pepcid/Eliquis, knee high nataly hose - Further medical management per hospitalist-consult - Analgesics as needed - Bowel protocol - F/U neurosurgeon Dr. Harrison, PCP, neurology, cardiology, orthopedics and pain management
[2019-07-19 15:54] VITALS: BMI 23.8
[2019-07-19 15:57] VITALS: BP 138/87
[2019-07-19 19:49] VITALS: BP 152/87; PULSE 63; RESP 16; TEMP 36.8; O2SAT 94
[2019-07-19] MEDS: Atorvastatin Calcium 40 MG Tablet GT (19:53)
[2019-07-19] MEDS: QUEtiapine 25 MG Tablet GT (19:53)
[2019-07-19] MEDS: Latanoprost 0.005% 1 Bottle 1 DRP EACH EYE (19:54)
[2019-07-19 23:59] VITALS: BMI 23.8
--- NOTE | 2019-07-20 05:02 | NURSING ---
Reviewed and agree with LPNs handoff
[2019-07-20] MEDS: Jevity 1.5. 1,000 ML Bottle 240 ML GT ×5 (05:22→20:38)
[2019-07-20] MEDS: Acetaminophen 650 MG/20 ML UDC 1000 MG GT ×3 (05:23→20:39)
[2019-07-20 07:29] VITALS: BP 120/80; PULSE 60; RESP 16; TEMP 36.7; O2SAT 97
[2019-07-20] MEDS: Menthol/Lanolin/Calamine/Znox 113 GM Tube 1 APPLIC TOPICAL ×2 (08:56→20:37)
[2019-07-20] MEDS: Loperamide 2 MG Capsule PO (08:56)
[2019-07-20] MEDS: Losartan Potassium 100 MG Tablet GT (08:57)
[2019-07-20] MEDS: DULoxetine Hcl 60 MG Capsule PO (08:57)
[2019-07-20] MEDS: Carvedilol 12.5 MG Tablet GT ×2 (08:57→20:37)
[2019-07-20] MEDS: APIXABAN 5 MG TABLET GT ×2 (08:57→20:38)
[2019-07-20] MEDS: amLODIPine 10 MG Tablet PO (08:58)
[2019-07-20] MEDS: hydroCHLOROthiazide 25 MG Tablet GT (08:58)
[2019-07-20] MEDS: Famotidine 20 MG Tablet GT (08:58)
[2019-07-20] MEDS: Flecainide 100 MG Tablet GT ×2 (08:59→20:39)
--- NOTE | 2019-07-20 12:17 | PN_ITS ---
Subjective: Chief complaint: Follow-up after consultation for medical management following admission to inpatient rehabilitation unit. Patient seen and examined. No acute events overnight. She has no significant complaints. Left shoulder pain improved after steroid injection. Her vital signs are stable. - Physical Exam Vitals/I&O's: Vital Signs Temp Pulse Resp BP Pulse Ox 98.0 F 60 16 120/80 97 07/20/19 07:29 07/20/19 07:29 07/20/19 07:29 07/20/19 07:29 07/20/19 07:29 Oxygen Delivery Method Room Air Weight: 146 lb 2.664 oz Body Mass Index (BMI) 23.8 Finger Stick Blood Glucose 143 Intake and Output for Last 24 Hours 07/18/19 07/19/19 07/20/19 23:59 23:59 23:59 Intake Total 1950 / 1950 1950 / 1950 780 / 780 Output Total 700 / 700 200 / 200 300 / 300 Balance 1250 / 1250 1750 / 1750 480 / 480 General: Alert, Oriented x3, Cooperative, No apparent distress HEENT: Atraumatic, PERRLA, EOMI, Normocephalic Oral: Moist Mucosa, No Gingival or Mucosal Lesions/ Ulcerations Neck: Supple, No JVD, Negative Carotid Bruits, Trachea Midline, Thyroid Normal Size and Texture Lungs: Clear to auscultation, Normal air movement, No rhonchi, No wheeze, No rales Cardiovascular: Regular rate, Regular Rhythm, Normal S1, Normal S2, PMI Normal Abdomen: Bowel Sounds Present, Soft, Non Tender, Non-Distended, No Hepato- splenomegaly Extremities: No clubbing, No cyanosis, No edema Skin: No rashes, No breakdown Lymphatic: No Cervical, Supraclavicular, or Inguinal Adenopathy Neurological: - - Left-sided neglect, left-sided hemiparesis. Psych/Mental Status: Normal Affect, Appropriate Current Medications Acetaminophen (Tylenol Liquid) 1,000 mg GT TID [facility] Last Admin: 07/20/19 05:23 Dose: 1,000 mg Documented by: Amlodipine Besylate (Norvasc) 10 mg PO DAILY [facility] Last Admin: 07/20/19 08:58 Dose: 10 mg Documented by: Apixaban (Eliquis) 5 mg GT BID [facility] Last Admin: 07/20/19 08:57 Dose: 5 mg Documented by: Atorvastatin Calcium (Lipitor) 40 mg GT QHS [facility] Last Admin: 07/19/19 19:53 Dose: 40 mg Documented by: Bisacodyl (Dulcolax) 10 mg RECTAL .PRN X 1 PRN PRN Reason: Constipation Calamine/Phenol (Calmoseptine Ointment) 1 applic TOPICAL BID [facility]; Protocol Last Admin: 07/20/19 08:56 Dose: 1 applicatio Documented by: Carvedilol (Coreg) 12.5 mg GT BID [facility] Last Admin: 07/20/19 08:57 Dose: 12.5 mg Documented by: Duloxetine HCl (Cymbalta) 60 mg PO DAILY [facility] Last Admin: 07/20/19 08:57 Dose: 60 mg Documented by: Enteral Nutritional Formula (Jevity 1.5) 240 ml GT 5X/DAY [facility] Last Admin: 07/20/19 08:58 Dose: 240 ml Documented by: Famotidine (Pepcid) 20 mg GT DAILY [facility] Last Admin: 07/20/19 08:58 Dose: 20 mg Documented by: Flecainide Acetate (Tambocor) 100 mg GT BID [facility] Last Admin: 07/20/19 08:59 Dose: 100 mg Documented by: Hydrochlorothiazide (Hctz) 25 mg GT DAILY [facility] Last Admin: 07/20/19 08:58 Dose: 25 mg Documented by: Lactobacillus Acidophilus (Acidophilus) 1 tablet GT BID [facility] Last Admin: 07/20/19 08:56 Dose: 1 tablet Documented by: Latanoprost (Xalatan Opthalmic) 1 drop EACH EYE DAILY@2200 [facility] Last Admin: 07/19/19 19:54 Dose: 1 drop Documented by: Loperamide HCl (Imodium) 2 mg PO Q4H PRN PRN PRN Reason: DIARRHEA/LOOSE STOOLS Last Admin: 07/20/19 08:56 Dose: 2 mg Documented by: Losartan Potassium (Cozaar) 100 mg GT DAILY [facility] Last Admin: 07/20/19 08:57 Dose: 100 mg Documented by: Magnesium Hydroxide (Milk Of Magnesia) 30 ml PO .PRN X 1 PRN PRN Reason: Constipation Last Admin: 07/08/19 17:32 Dose: 30 ml Documented by: Multi-Ingredient Cream (Eucerin) 1 applic TOPICAL TID PRN PRN; Protocol PRN Reason: Dry Skin Potassium Chloride (Potassium Chl Soln) 20 meq GT DAILY [facility] Last Admin: 07/20/19 11:10 Dose: 20 meq Documented by: Quetiapine Fumarate (Seroquel) 25 mg GT DAILY@1999 [facility] Last Admin: 07/19/19 19:53 Dose: 25 mg Documented by: Sodium Chloride () 5 - 15 ml IV UD PRN PRN Reason: SALINE FLUSH Last Admin: 06/19/19 06:13 Dose: 10 ml Documented by: Medical Necessity - Tobacco Use Smoking Status: Never smoker Tobacco Use: Non-smoker Assessment/Plan All Active Problems (Last Reviewed 07/09/19 @ 07:57 by Kathi Shields) CVA (cerebral vascular accident) (Acute 05/2019) This is a 79 years old female patient admitted to inpatient rehabilitation unit after she suffered a right MCA stroke with 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 #1 acute right MCA stroke: With resultant left-sided intact, left-sided hemiparesis, status post thrombectomy. Patient is able to move her left upper and lower extremity very minimally. Remained on Eliquis and statins. Her vital signs are stable, blood pressure under control. Plan to continue PT OT according to rehab team. #2 dysphagia: Status post PEG tube placement, on tube feeds, she is tolerating tube feeds. Remained n.p.o. #3 Left acromioclavicular arthritis: Status post left shoulder steroid injection. Her pain improved. She is on Tylenol PRN for pain and hip and has been under control. #4 paroxysmal atrial fibrillation: Rate is controlled, continue flecainide and Coreg for rate control, continue Eliquis for anticoagulation. #5 hypertension: Blood pressure stable, continue Norvasc, HCTZ, losartan and Coreg. #6 type 2 diabetes mellitus: Blood sugar stable. She is not on any antidiabetic medications. #7 depression/anxiety: Continue Seroquel and Cymbalta. #8 DVT prophylaxis: Continue Eliquis. This note was generated with [employer] dictation software. It may contain incorrect words, spelling, and punctuation that were not noted in checking the note before signing. Code Visit Inpatient E&M: 26072 Subs Hosp L2
[2019-07-20 13:56] VITALS: BMI 23.8
[2019-07-20 19:31] VITALS: BP 131/81; PULSE 67; RESP 16; TEMP 36.6; O2SAT 96
[2019-07-20 20:35] VITALS: BMI 23.8
[2019-07-20] MEDS: QUEtiapine 25 MG Tablet GT (20:36)
[2019-07-20] MEDS: Atorvastatin Calcium 40 MG Tablet GT (20:39)
[2019-07-20] MEDS: Latanoprost 0.005% 1 Bottle 1 DRP EACH EYE (20:40)
[2019-07-20 22:00] VITALS: PULSE 67; RESP 16; O2SAT 96
[2019-07-21] MEDS: Acetaminophen 650 MG/20 ML UDC 1000 MG GT ×3 (05:09→20:14)
[2019-07-21] MEDS: Jevity 1.5. 1,000 ML Bottle 240 ML GT ×5 (05:10→20:16)
[2019-07-21 07:55] VITALS: BP 137/80; PULSE 64; RESP 16; TEMP 36.6; O2SAT 95
[2019-07-21] MEDS: APIXABAN 5 MG TABLET GT ×2 (09:28→20:13)
[2019-07-21] MEDS: hydroCHLOROthiazide 25 MG Tablet GT (09:28)
[2019-07-21] MEDS: amLODIPine 10 MG Tablet PO (09:28)
[2019-07-21] MEDS: Losartan Potassium 100 MG Tablet GT (09:29)
[2019-07-21] MEDS: Famotidine 20 MG Tablet GT (09:29)
[2019-07-21] MEDS: Flecainide 100 MG Tablet GT ×2 (09:29→20:14)
[2019-07-21] MEDS: DULoxetine Hcl 60 MG Capsule PO (09:29)
[2019-07-21] MEDS: Carvedilol 12.5 MG Tablet GT ×2 (09:29→20:14)
[2019-07-21] MEDS: Menthol/Lanolin/Calamine/Znox 113 GM Tube 1 APPLIC TOPICAL ×2 (09:45→20:14)
[2019-07-21 11:41] VITALS: BMI 23.8
[2019-07-21 19:23] VITALS: BP 145/78; PULSE 60; RESP 16; TEMP 36.8; O2SAT 98
[2019-07-21] MEDS: QUEtiapine 25 MG Tablet GT (20:13)
[2019-07-21] MEDS: Atorvastatin Calcium 40 MG Tablet GT (20:14)
[2019-07-21] MEDS: Latanoprost 0.005% 1 Bottle 1 DRP EACH EYE (20:15)
[2019-07-21 20:30] VITALS: PULSE 60; RESP 16; O2SAT 98; BMI 23.8
[2019-07-22] MEDS: Jevity 1.5. 1,000 ML Bottle 240 ML GT ×5 (06:31→19:38)
[2019-07-22] MEDS: Acetaminophen 650 MG/20 ML UDC 1000 MG GT ×3 (06:32→19:36)
[2019-07-22 08:22] VITALS: BP 114/62; PULSE 66; RESP 17; TEMP 36.3; O2SAT 97
--- NOTE | 2019-07-22 10:35 | CASEMGMT ---
Social Work IDT met with patient, three daughters and son for Team Meeting. Pt has improved alertness and appropriately commented during meeting. Family and IDT still noticing visual hallucinations that are causing pt distress. Physician increased Seroquel 12.5 mg at night. Will monitor for improvement, but also if pt become less alert and more sleepy. Pt is walking the wall rail of 20 ft with max x1 and SBA x1 and still having left leg cross midline, but can notice some tone return. Pt improving on using left arm upon command. Pt is toileting x2, max assist for bathing and UE dressing, and min assist for grooming. For ST, pt is improving on left visual scanning although needing max cues to locate items on left. Remains NPO with [place] water protocol. ST trialed puree textures and still signs of aspiration, so will keep working on swallowing exercises until there are no more signs of aspiration to repeat MBS. Insurance update is 07/23 and continued stay is not guaranteed. If issued LCD, pt will discharge to SNF for LTP. Will continue to follow. [employer]
[2019-07-22] MEDS: hydroCHLOROthiazide 25 MG Tablet GT (10:37)
[2019-07-22] MEDS: Carvedilol 12.5 MG Tablet GT ×2 (10:37→19:37)
[2019-07-22] MEDS: Losartan Potassium 100 MG Tablet GT (10:37)
[2019-07-22] MEDS: APIXABAN 5 MG TABLET GT ×2 (10:37→19:37)
[2019-07-22] MEDS: Menthol/Lanolin/Calamine/Znox 113 GM Tube 1 APPLIC TOPICAL ×2 (10:37→19:38)
[2019-07-22] MEDS: DULoxetine Hcl 60 MG Capsule PO (10:37)
[2019-07-22] MEDS: amLODIPine 10 MG Tablet PO (10:38)
[2019-07-22] MEDS: Flecainide 100 MG Tablet GT ×2 (10:38→19:37)
[2019-07-22] MEDS: Famotidine 20 MG Tablet GT (10:38)
--- NOTE | 2019-07-22 11:04 | PN_ITS ---
Subjective: follow-up acute right MCA stroke with residual left-sided paralysis Objective: GENERAL: Cooperative HEENT: Oral thrush EYES; Anicteric, Normal Conjunctiva NECK; supple, normal thyroid, RESPIRATORY: Diminished to auscultation CARDIOVASCULAR: Irregular S1 S2, GI: soft, non-tender, normoactive bowel sounds, : No Renal angle tenderness; EXTREMITIES: No edema, no clubbing, NEURO: Awake; left sided weakness SKIN: No Rash PSYCH;flat affect Vitals/I&O's: Vital Signs Temp Pulse Resp BP Pulse Ox 97.3 F L 66 17 114/62 97 07/22/19 08:22 07/22/19 08:22 07/22/19 08:22 07/22/19 08:22 07/22/19 08:22 Oxygen Delivery Method Room Air Weight: 66.1 kg Body Mass Index (BMI) 23.8 Finger Stick Blood Glucose 143 Intake and Output for Last 24 Hours 07/20/19 07/21/19 07/22/19 23:59 23:59 23:59 Intake Total 1950 / 1950 2040 / 2040 390 / 390 Output Total 700 / 700 950 / 950 900 / 900 Balance 1250 / 1250 1090 / 1090 -510 / -510 Current Medications Acetaminophen (Tylenol Liquid) 1,000 mg GT TID [facility] Last Admin: 07/22/19 06:32 Dose: 1,000 mg Documented by: Amlodipine Besylate (Norvasc) 10 mg PO DAILY [facility] Last Admin: 07/22/19 10:38 Dose: 10 mg Documented by: Apixaban (Eliquis) 5 mg GT BID [facility] Last Admin: 07/22/19 10:37 Dose: 5 mg Documented by: Atorvastatin Calcium (Lipitor) 40 mg GT QHS [facility] Last Admin: 07/21/19 20:14 Dose: 40 mg Documented by: Bisacodyl (Dulcolax) 10 mg RECTAL .PRN X 1 PRN PRN Reason: Constipation Calamine/Phenol (Calmoseptine Ointment) 1 applic TOPICAL BID [facility]; Protocol Last Admin: 07/22/19 10:37 Dose: 1 applicatio Documented by: Carvedilol (Coreg) 12.5 mg GT BID [facility] Last Admin: 07/22/19 10:37 Dose: 12.5 mg Documented by: Duloxetine HCl (Cymbalta) 60 mg PO DAILY [facility] Last Admin: 07/22/19 10:37 Dose: 60 mg Documented by: Enteral Nutritional Formula (Jevity 1.5) 240 ml GT 5X/DAY [facility] Last Admin: 07/22/19 10:36 Dose: 240 ml Documented by: Famotidine (Pepcid) 20 mg GT DAILY [facility] Last Admin: 07/22/19 10:38 Dose: 20 mg Documented by: Flecainide Acetate (Tambocor) 100 mg GT BID [facility] Last Admin: 07/22/19 10:38 Dose: 100 mg Documented by: Hydrochlorothiazide (Hctz) 25 mg GT DAILY [facility] Last Admin: 07/22/19 10:37 Dose: 25 mg Documented by: Lactobacillus Acidophilus (Acidophilus) 1 tablet GT BID [facility] Last Admin: 07/22/19 10:36 Dose: 1 tablet Documented by: Latanoprost (Xalatan Opthalmic) 1 drop EACH EYE DAILY@2200 [facility] Last Admin: 07/21/19 20:15 Dose: 1 drop Documented by: Loperamide HCl (Imodium) 2 mg PO Q4H PRN PRN PRN Reason: DIARRHEA/LOOSE STOOLS Last Admin: 07/20/19 08:56 Dose: 2 mg Documented by: Losartan Potassium (Cozaar) 100 mg GT DAILY [facility] Last Admin: 07/22/19 10:37 Dose: 100 mg Documented by: Magnesium Hydroxide (Milk Of Magnesia) 30 ml PO .PRN X 1 PRN PRN Reason: Constipation Last Admin: 07/08/19 17:32 Dose: 30 ml Documented by: Multi-Ingredient Cream (Eucerin) 1 applic TOPICAL TID PRN PRN; Protocol PRN Reason: Dry Skin Potassium Chloride (Potassium Chl Soln) 20 meq GT DAILY [facility] Last Admin: 07/22/19 10:36 Dose: 20 meq Documented by: Quetiapine Fumarate (Seroquel) 37.5 mg GT DAILY@2000 [facility] Sodium Chloride () 5 - 15 ml IV UD PRN PRN Reason: SALINE FLUSH Last Admin: 06/19/19 06:13 Dose: 10 ml Documented by: STROKE Vital Signs/Narrative: Vital Signs Temp Pulse Resp BP Pulse Ox 07/22/19 08:22 97.3 F L 66 17 114/62 97 Medical Necessity - Tobacco Use Smoking Status: Never smoker Tobacco Use: Non-smoker Assessment/Plan All Active Problems (Last Reviewed 07/09/19 @ 07:57 by Kathi Shields) CVA (cerebral vascular accident) (Acute 05/2019) Patient is a 79-year-old lady admitted to the inpatient rehab unit with significant debility secondary to acute right MCA stroke with residual left- sided paralysis 1. Acute right MCA ischemic stroke with residual left-sided paralysis. Patient underwent right ICA thrombectomy subsequently transferred to the rehab unit at the [facility] patient has had a protracted stay at the inpatient rehab he needs including placement of feeding tube to stay which was complicated by aspiration pneumonia 2. Aspiration pneumonia ?Resolved 3. Oral candidiasis ?Resolved 4. Hypertension ~ blood pressure controlled, home medications continued with dose adjustment as needed 5. Paroxysmal atrial fibrillation Patient is on flecainide was on Xarelto which is currently being held. Her post thrombectomy. Was apparently complicated by acute cytotoxic cerebral edema with brain compression 6. Hypokalemia corrected per protocol 7. Diabetes mellitus type II ~Diet controlled, placed on Accu-Cheks a.c. and at bedtime and covered with sliding scale insulin 8. Depression with anxiety patient is on Seroquel as well as Ativan as needed 9. DVT prophylaxis SC Lovenox Code Visit Inpatient E&M: 43064 Subs Hosp L2
--- NOTE | 2019-07-22 12:48 | PN.NEURO_ITS ---
Subjective: No issues overnight. Case discussed with the nursing staff. Staffed in the team meeting today. All questions were answered. Further therapy details per PT/OT/ST notes. Had some worsening visual hallucinations this morning per the nursing staff, will increase Seroquel to 37.5 mg p.o. nightly. Family at bedside, discussed with the family and they are okay with increasing the Seroquel at present, if there is any worsening somnolence then may need to decrease Seroquel at that time. - Physical Exam Vitals/I&O's: Vital Signs Temp Pulse Resp BP Pulse Ox 97.3 F L 66 17 114/62 97 07/22/19 08:22 07/22/19 08:22 07/22/19 08:22 07/22/19 08:22 07/22/19 08:22 Oxygen Delivery Method Room Air Weight: 66.1 kg Body Mass Index (BMI) 23.8 Finger Stick Blood Glucose 143 Intake and Output for Last 24 Hours 07/20/19 07/21/19 07/22/19 23:59 23:59 23:59 Intake Total 1950 / 1950 204 / 2040 390 / 390 Output Total 700 / 700 950 / 950 900 / 900 Balance 1250 / 1250 1090 / 1090 -510 / -510 General: Alert HEENT: Normocephalic Neck: Supple Lungs: Normal air movement Cardiovascular: Normal S1, Normal S2 Abdomen: Bowel Sounds Present Extremities: No cyanosis Neurological: - - conscious, alert, CN II to XII grossly intact except 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, power 5/5 right upper and lower extremities, 2/5 Left UE, 3/5 left LE, plantars right flexor, left mute, no pronator drift, left sensory loss with left sensory neglect, no cerebellar signs, gait deferred, reflexes + B/L B/S/T/K/A, dysarthria +,No NR, fundus not visualized Psych/Mental Status: Normal Affect Current Medications Acetaminophen (Tylenol Liquid) 1,000 mg GT TID [facility] Last Admin: 07/22/19 06:32 Dose: 1,000 mg Documented by: Amlodipine Besylate (Norvasc) 10 mg PO DAILY [facility] Last Admin: 07/22/19 10:38 Dose: 10 mg Documented by: Apixaban (Eliquis) 5 mg GT BID [facility] Last Admin: 07/22/19 10:37 Dose: 5 mg Documented by: Atorvastatin Calcium (Lipitor) 40 mg GT QHS [facility] Last Admin: 07/21/19 20:14 Dose: 40 mg Documented by: Bisacodyl (Dulcolax) 10 mg RECTAL .PRN X 1 PRN PRN Reason: Constipation Calamine/Phenol (Calmoseptine Ointment) 1 applic TOPICAL BID [facility]; Protocol Last Admin: 07/22/19 10:37 Dose: 1 applicatio Documented by: Carvedilol (Coreg) 12.5 mg GT BID [facility] Last Admin: 07/22/19 10:37 Dose: 12.5 mg Documented by: Duloxetine HCl (Cymbalta) 60 mg PO DAILY [facility] Last Admin: 07/22/19 10:37 Dose: 60 mg Documented by: Enteral Nutritional Formula (Jevity 1.5) 240 ml GT 5X/DAY [facility] Last Admin: 07/22/19 10:36 Dose: 240 ml Documented by: Famotidine (Pepcid) 20 mg GT DAILY [facility] Last Admin: 07/22/19 10:38 Dose: 20 mg Documented by: Flecainide Acetate (Tambocor) 100 mg GT BID [facility] Last Admin: 07/22/19 10:38 Dose: 100 mg Documented by: Hydrochlorothiazide (Hctz) 25 mg GT DAILY [facility] Last Admin: 07/22/19 10:37 Dose: 25 mg Documented by: Lactobacillus Acidophilus (Acidophilus) 1 tablet GT BID [facility] Last Admin: 07/22/19 10:36 Dose: 1 tablet Documented by: Latanoprost (Xalatan Opthalmic) 1 drop EACH EYE DAILY@2200 [facility] Last Admin: 07/21/19 20:15 Dose: 1 drop Documented by: Loperamide HCl (Imodium) 2 mg PO Q4H PRN PRN PRN Reason: DIARRHEA/LOOSE STOOLS Last Admin: 07/20/19 08:56 Dose: 2 mg Documented by: Losartan Potassium (Cozaar) 100 mg GT DAILY [facility] Last Admin: 07/22/19 10:37 Dose: 100 mg Documented by: Magnesium Hydroxide (Milk Of Magnesia) 30 ml PO .PRN X 1 PRN PRN Reason: Constipation Last Admin: 07/08/19 17:32 Dose: 30 ml Documented by: Multi-Ingredient Cream (Eucerin) 1 applic TOPICAL TID PRN PRN; Protocol PRN Reason: Dry Skin Potassium Chloride (Potassium Chl Soln) 20 meq GT DAILY [facility] Last Admin: 07/22/19 10:36 Dose: 20 meq Documented by: Quetiapine Fumarate (Seroquel) 37.5 mg GT DAILY@2000 [facility] Sodium Chloride () 5 - 15 ml IV UD PRN PRN Reason: SALINE FLUSH Last Admin: 06/19/19 06:13 Dose: 10 ml Documented by: Medical Necessity - Tobacco Use Smoking Status: Never smoker Tobacco Use: Non-smoker Assessment/Plan All Active Problems (Last Reviewed 07/09/19 @ 07:57 by Kathi Shields) CVA (cerebral vascular accident) (Acute 05/2019) The patient is a 79 year old F with PMH of HTN, HLD, CAD, DM type II, A-fib with RVR, pacemaker, RUDY, anxiety and depression admitted to [facility] on 06/06/2019 with debility secondary to right MCA with right M1 occlusion s/p post thrombectomy, for > 3 hours of therapy daily with a goal of returning home at or near her prior level of independence. She presented to [facility] ER on 05/23/2019 due to patient was found laying on the ground in her garage with left-sided deficits. NIH was 20. CT of brain suggestive of thrombus in the right MCA and an early infarct in the right MCA territory. CTA head and neck with contrast impression right MCA occlusion. No TPA and patient was transferred to [facility]. On 05/23/19, neurosurgeon Dr. Doll formed the right MCA thrombectomy, due to right [place] occlusion. Postprocedural right ICA arteriogram demonstrated TICI?2b revascularization. CT of head without contrast on 06/04/2019 right MCA territory infarct with decrease edema noted in resolution of previously noted mass-effect of the right lateral ventricle and resolution of previously noted midline shift. Scattered hemorrhage within the infarct is less well. No new hemorrhage is identified.. Unable to obtain MRI due to pacemaker. TTE done which showed ejection fraction 65 to 70% and RVSP 41-45 mmHg. LDL 116, HgbA1c 6.5%. Prior to hospitalization patient was on Xarelto 15 mg daily for A. fib, was discontinued by [facility]. Plan - PT for gait stability - OT for ADLs - ST - PEG placement 06/13/19 - Right MCA infarct post thrombectomy on statin, asa, antihypertensives. Repeat CT head 06/10/2019 shows stable right MCA stroke with no new hemorrhage. Eliquis 5 mg p.o. twice daily started from 06/14/2019 post PEG placement, stroke initially occurred on 05/23/2019. Aspirin stopped once Eliquis was started, as per patient she was not on aspirin at home at baseline. - HTN on Losartan, HCTZ, amlodipine and Coreg. Goal blood pressure less than 130/80, avoid hypotension. Started on amlodipine from 07/11/2019. Tolerating medication well. - A-fib- on flecainide xeralto discontinued by [facility]. Here started on Eliquis 5 mg p.o. twice daily from 06/14/2019 after PEG placed on 06/13/19, stroke initially occurred on 05/23/2019. - DM- metformin on hold, accuchecks ac/hs, HgbA1c 6.4% -Left acromioclavicular arthritis?pain management consult, steroid injections per pain management, will defer further medical evaluation and management to pain management. Orthopedic consult as outpatient as orthopedics will not be seeing patients in the rehab.. - S/P PEG- on jevity and sterile water flushes - HLD on lipitor LDL 116 - RUDY stable 06/15/19 H/H 10.3/31.7 - Anxiety/depression on cymbalta - Insomnia/visual hallucinations-on Seroquel - GI/DVT prophylaxis pepcid/Eliquis, knee high nataly hose - Further medical management per hospitalist-consult - Analgesics as needed - Bowel protocol - F/U neurosurgeon Dr. Harrison, PCP, neurology, cardiology, orthopedics and pain management
[2019-07-22 15:09] VITALS: BMI 23.8
[2019-07-22 19:30] VITALS: RESP 18; O2SAT 94; BMI 23.8
[2019-07-22] MEDS: Atorvastatin Calcium 40 MG Tablet GT (19:37)
[2019-07-22 19:38] VITALS: BP 161/91; PULSE 65; RESP 18; TEMP 36.6; O2SAT 94
[2019-07-22] MEDS: Latanoprost 0.005% 1 Bottle 1 DRP EACH EYE (19:38)
[2019-07-22] MEDS: QUEtiapine 25 MG Tablet 37.5 MG GT (19:39)
--- NOTE | 2019-07-23 04:38 | NURSING ---
Reviewed and agree with AMBULATORY CARE NURSE documentation and charting.
[2019-07-23] MEDS: Acetaminophen 650 MG/20 ML UDC 1000 MG GT ×3 (05:47→19:44)
[2019-07-23] MEDS: Jevity 1.5. 1,000 ML Bottle 240 ML GT ×5 (05:48→19:47)
[2019-07-23 07:19] VITALS: BP 140/76; PULSE 64; RESP 16; TEMP 36.6; O2SAT 96
[2019-07-23] MEDS: Carvedilol 12.5 MG Tablet GT ×2 (09:17→19:46)
[2019-07-23] MEDS: DULoxetine Hcl 60 MG Capsule PO (09:17)
[2019-07-23] MEDS: amLODIPine 10 MG Tablet PO (09:17)
[2019-07-23] MEDS: Flecainide 100 MG Tablet GT ×2 (09:17→19:46)
[2019-07-23] MEDS: Losartan Potassium 100 MG Tablet GT (09:18)
[2019-07-23] MEDS: hydroCHLOROthiazide 25 MG Tablet GT (09:18)
[2019-07-23] MEDS: Famotidine 20 MG Tablet GT (09:18)
[2019-07-23] MEDS: APIXABAN 5 MG TABLET GT ×2 (09:18→19:46)
[2019-07-23] MEDS: Menthol/Lanolin/Calamine/Znox 113 GM Tube 1 APPLIC TOPICAL ×2 (09:18→19:47)
--- NOTE | 2019-07-23 13:06 | PN.NEURO_ITS ---
Subjective: No issues overnight. Care discussed with the nursing staff. - Physical Exam Vitals/I&O's: Vital Signs Temp Pulse Resp BP Pulse Ox 97.8 F 64 16 140/76 H 96 07/23/19 07:19 07/23/19 07:19 07/23/19 07:19 07/23/19 07:19 07/23/19 07:19 Oxygen Delivery Method Room Air Weight: 64.4 kg Body Mass Index (BMI) 23.8 Finger Stick Blood Glucose 143 Intake and Output for Last 24 Hours 07/21/19 07/22/19 07/23/19 23:59 23:59 23:59 Intake Total 2040 / 2040 2370 / 2370 780 / 780 Output Total 950 / 950 1450 / 1450 Balance 1090 / 1090 920 / 920 780 / 780 General: Alert HEENT: Normocephalic Neck: Supple Lungs: Normal air movement Cardiovascular: Normal S1, Normal S2 Abdomen: Bowel Sounds Present Extremities: No cyanosis Skin: No rashes Neurological: - - conscious, alert, CN II to XII grossly intact except 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, power 5/5 right upper and lower extremities, 3/5 Left UE, 3/5 left LE, plantars right flexor, left mute, no pronator drift, left sensory loss with left sensory neglect, no cerebellar signs, gait deferred, reflexes + B/L B/S/T/K/A, dysarthria +,No NR, fundus not visualized Psych/Mental Status: Normal Affect Current Medications Acetaminophen (Tylenol Liquid) 1,000 mg GT TID [facility] Last Admin: 07/23/19 05:47 Dose: 1,000 mg Documented by: Amlodipine Besylate (Norvasc) 10 mg PO DAILY [facility] Last Admin: 07/23/19 09:17 Dose: 10 mg Documented by: Apixaban (Eliquis) 5 mg GT BID [facility] Last Admin: 07/23/19 09:18 Dose: 5 mg Documented by: Atorvastatin Calcium (Lipitor) 40 mg GT QHS [facility] Last Admin: 07/22/19 19:37 Dose: 40 mg Documented by: Bisacodyl (Dulcolax) 10 mg RECTAL .PRN X 1 PRN PRN Reason: Constipation Calamine/Phenol (Calmoseptine Ointment) 1 applic TOPICAL BID [facility]; Protocol Last Admin: 07/23/19 09:18 Dose: 1 applicatio Documented by: Carvedilol (Coreg) 12.5 mg GT BID [facility] Last Admin: 07/23/19 09:17 Dose: 12.5 mg Documented by: Duloxetine HCl (Cymbalta) 60 mg PO DAILY [facility] Last Admin: 07/23/19 09:17 Dose: 60 mg Documented by: Enteral Nutritional Formula (Jevity 1.5) 240 ml GT 5X/DAY [facility] Last Admin: 07/23/19 09:18 Dose: 240 ml Documented by: Famotidine (Pepcid) 20 mg GT DAILY [facility] Last Admin: 07/23/19 09:18 Dose: 20 mg Documented by: Flecainide Acetate (Tambocor) 100 mg GT BID [facility] Last Admin: 07/23/19 09:17 Dose: 100 mg Documented by: Hydrochlorothiazide (Hctz) 25 mg GT DAILY [facility] Last Admin: 07/23/19 09:18 Dose: 25 mg Documented by: Lactobacillus Acidophilus (Acidophilus) 1 tablet GT BID [facility] Last Admin: 07/23/19 09:18 Dose: 1 tablet Documented by: Latanoprost (Xalatan Opthalmic) 1 drop EACH EYE DAILY@220 [facility] Last Admin: 07/22/19 19:38 Dose: 1 drop Documented by: Loperamide HCl (Imodium) 2 mg PO Q4H PRN PRN PRN Reason: DIARRHEA/LOOSE STOOLS Last Admin: 07/20/19 08:56 Dose: 2 mg Documented by: Losartan Potassium (Cozaar) 100 mg GT DAILY [facility] Last Admin: 07/23/19 09:18 Dose: 100 mg Documented by: Magnesium Hydroxide (Milk Of Magnesia) 30 ml PO .PRN X 1 PRN PRN Reason: Constipation Last Admin: 07/08/19 17:32 Dose: 30 ml Documented by: Multi-Ingredient Cream (Eucerin) 1 applic TOPICAL TID PRN PRN; Protocol PRN Reason: Dry Skin Potassium Chloride (Potassium Chl Soln) 20 meq GT DAILY [facility] Last Admin: 07/23/19 09:18 Dose: 20 meq Documented by: Quetiapine Fumarate (Seroquel) 37.5 mg GT DAILY@2000 [facility] Last Admin: 07/22/19 19:39 Dose: 37.5 mg Documented by: Sodium Chloride () 5 - 15 ml IV UD PRN PRN Reason: SALINE FLUSH Last Admin: 06/19/19 06:13 Dose: 10 ml Documented by: Medical Necessity - Tobacco Use Smoking Status: Never smoker Tobacco Use: Non-smoker Assessment/Plan All Active Problems (Last Reviewed 07/09/19 @ 07:57 by Kathi Shields) CVA (cerebral vascular accident) (Acute 05/2019) The patient is a 79 year old F with PMH of HTN, HLD, CAD, DM type II, A-fib with RVR, pacemaker, RUDY, anxiety and depression admitted to [facility] on 06/06/2019 with debility secondary to right MCA with right M1 occlusion s/p post thrombectomy, for > 3 hours of therapy daily with a goal of returning home at or near her prior level of independence. She presented to [facility] ER on 05/23/2019 due to patient was found laying on the ground in her garage with left-sided deficits. NIH was 20. CT of brain suggestive of thrombus in the right MCA and an early infarct in the right MCA territory. CTA head and neck with contrast impression right MCA occlusion. No TPA and patient was transferred to [facility]. On 05/23/19, neurosurgeon Dr. Doll formed the right MCA thrombectomy, due to right [place] occlusion. Postprocedural right ICA arteriogram demonstrated TICI?2b revascularization. CT of head without contrast on 06/04/2019 right MCA territory infarct with decrease edema noted in resolution of previously noted mass-effect of the right lateral ventricle and resolution of previously noted midline shift. Scattered hemorrhage within the infarct is less well. No new hemorrhage is identified.. Unable to obtain MRI due to pacemaker. TTE done which showed ejection fraction 65 to 70% and RVSP 41-45 mmHg. LDL 116, HgbA1c 6.5%. Prior to hospitalization patient was on Xarelto 15 mg daily for A. fib, was discontinued by [facility]. Plan - PT for gait stability - OT for ADLs - ST - PEG placement 06/13/19 - Right MCA infarct post thrombectomy on statin, asa, antihypertensives. Repeat CT head 06/10/2019 shows stable right MCA stroke with no new hemorrhage. Eliquis 5 mg p.o. twice daily started from 06/14/2019 post PEG placement, stroke initially occurred on 05/23/2019. Aspirin stopped once Eliquis was started, as per patient she was not on aspirin at home at baseline. - HTN on Losartan, HCTZ, amlodipine and Coreg. Goal blood pressure less than 130/80, avoid hypotension. Started on amlodipine from 07/11/2019. Tolerating medication well. - A-fib- on flecainide xeralto discontinued by [facility]. Here started on Eliquis 5 mg p.o. twice daily from 06/14/2019 after PEG placed on 06/13/19, stroke initially occurred on 05/23/2019. - DM- metformin on hold, accuchecks ac/hs, HgbA1c 6.4% -Left acromioclavicular arthritis?pain management consult, steroid injections per pain management, will defer further medical evaluation and management to pain management. Orthopedic consult as outpatient as orthopedics will not be seeing patients in the rehab.. - S/P PEG- on jevity and sterile water flushes - HLD on lipitor LDL 116 - RUDY stable 06/15/19 H/H 10.3/31.7 - Anxiety/depression on cymbalta - Insomnia/visual hallucinations-on Seroquel - GI/DVT prophylaxis pepcid/Eliquis, knee high nataly hose - Further medical management per hospitalist-consult - Analgesics as needed - Bowel protocol - F/U neurosurgeon Dr. Harrison, PCP, neurology, cardiology, orthopedics and pain management
[2019-07-23 13:28] VITALS: BMI 23.8
[2019-07-23 19:22] VITALS: BP 135/74; PULSE 60; RESP 60; TEMP 36.6; O2SAT 94
[2019-07-23 19:30] VITALS: PULSE 60; RESP 18; O2SAT 94; BMI 23.8
[2019-07-23] MEDS: Latanoprost 0.005% 1 Bottle 1 DRP EACH EYE (19:46)
[2019-07-23] MEDS: Atorvastatin Calcium 40 MG Tablet GT (19:46)
[2019-07-23] MEDS: QUEtiapine 25 MG Tablet 37.5 MG GT (19:47)
--- NOTE | 2019-07-24 02:59 | NURSING ---
Reviewed and agree with HEEL WHEELER documentation and charting.
[2019-07-24] MEDS: Acetaminophen 650 MG/20 ML UDC 1000 MG GT ×3 (05:58→20:49)
[2019-07-24] MEDS: Jevity 1.5. 1,000 ML Bottle 240 ML GT ×5 (05:58→20:50)
--- NOTE | 2019-07-24 07:45 | PCM.PN.HOSP ---
Subjective: follow-up acute right MCA stroke with residual left-sided paralysis Objective: GENERAL: Cooperative HEENT: Oral thrush EYES; Anicteric, Normal Conjunctiva NECK; supple, normal thyroid, RESPIRATORY: Diminished to auscultation CARDIOVASCULAR: Irregular S1 S2, GI: soft, non-tender, normoactive bowel sounds, : No Renal angle tenderness; EXTREMITIES: No edema, no clubbing, NEURO: Awake; left sided weakness SKIN: No Rash PSYCH;flat affect Vitals/I&O's: Vital Signs Temp Pulse Resp BP Pulse Ox 97.8 F 60 18 135/74 H 94 07/23/19 19:22 07/23/19 19:30 07/23/19 19:30 07/23/19 19:22 07/23/19 19:30 Oxygen Delivery Method Room Air Weight: 64.4 kg Body Mass Index (BMI) 23.8 Finger Stick Blood Glucose 143 Intake and Output for Last 24 Hours 07/22/19 07/23/19 07/24/19 23:59 23:59 23:59 Intake Total 2370 / 2370 2040 / 2040 390 / 390 Output Total 1450 / 1450 100 / 100 400 / 400 Balance 920 / 920 1940 / 1940 -10 / -10 Current Medications Acetaminophen (Tylenol Liquid) 1,000 mg GT TID [facility] Last Admin: 07/24/19 05:58 Dose: 1,000 mg Documented by: Amlodipine Besylate (Norvasc) 10 mg PO DAILY [facility] Last Admin: 07/23/19 09:17 Dose: 10 mg Documented by: Apixaban (Eliquis) 5 mg GT BID [facility] Last Admin: 07/23/19 19:46 Dose: 5 mg Documented by: Atorvastatin Calcium (Lipitor) 40 mg GT QHS [facility] Last Admin: 07/23/19 19:46 Dose: 40 mg Documented by: Bisacodyl (Dulcolax) 10 mg RECTAL .PRN X 1 PRN PRN Reason: Constipation Calamine/Phenol (Calmoseptine Ointment) 1 applic TOPICAL BID [facility]; Protocol Last Admin: 07/23/19 19:47 Dose: 1 applicatio Documented by: Carvedilol (Coreg) 12.5 mg GT BID [facility] Last Admin: 07/23/19 19:46 Dose: 12.5 mg Documented by: Duloxetine HCl (Cymbalta) 60 mg PO DAILY [facility] Last Admin: 07/23/19 09:17 Dose: 60 mg Documented by: Enteral Nutritional Formula (Jevity 1.5) 240 ml GT 5X/DAY [facility] Last Admin: 07/24/19 05:58 Dose: 240 ml Documented by: Famotidine (Pepcid) 20 mg GT DAILY [facility] Last Admin: 07/23/19 09:18 Dose: 20 mg Documented by: Flecainide Acetate (Tambocor) 100 mg GT BID [facility] Last Admin: 07/23/19 19:46 Dose: 100 mg Documented by: Hydrochlorothiazide (Hctz) 25 mg GT DAILY [facility] Last Admin: 07/23/19 09:18 Dose: 25 mg Documented by: Lactobacillus Acidophilus (Acidophilus) 1 tablet GT BID [facility] Last Admin: 07/23/19 19:46 Dose: 1 tablet Documented by: Latanoprost (Xalatan Opthalmic) 1 drop EACH EYE DAILY@2199 [facility] Last Admin: 07/23/19 19:46 Dose: 1 drop Documented by: Loperamide HCl (Imodium) 2 mg PO Q4H PRN PRN PRN Reason: DIARRHEA/LOOSE STOOLS Last Admin: 07/20/19 08:56 Dose: 2 mg Documented by: Losartan Potassium (Cozaar) 100 mg GT DAILY [facility] Last Admin: 07/23/19 09:18 Dose: 100 mg Documented by: Magnesium Hydroxide (Milk Of Magnesia) 30 ml PO .PRN X 1 PRN PRN Reason: Constipation Last Admin: 07/08/19 17:32 Dose: 30 ml Documented by: Multi-Ingredient Cream (Eucerin) 1 applic TOPICAL TID PRN PRN; Protocol PRN Reason: Dry Skin Potassium Chloride (Potassium Chl Soln) 20 meq GT DAILY [facility] Last Admin: 07/23/19 09:18 Dose: 20 meq Documented by: Quetiapine Fumarate (Seroquel) 37.5 mg GT DAILY@1999 [facility] Last Admin: 07/23/19 19:47 Dose: 37.5 mg Documented by: Sodium Chloride () 5 - 15 ml IV UD PRN PRN Reason: SALINE FLUSH Last Admin: 06/19/19 06:13 Dose: 10 ml Documented by: Medical Necessity - Tobacco Use Smoking Status: Never smoker Tobacco Use: Non-smoker Assessment/Plan All Active Problems (Last Reviewed 07/09/19 @ 07:57 by Kathi Shields) CVA (cerebral vascular accident) (Acute 05/2019) Patient is a 79-year-old lady admitted to the inpatient rehab unit with significant debility secondary to acute right MCA stroke with residual left-sided paralysis 1. Acute right MCA ischemic stroke with residual left-sided paralysis. Patient underwent right ICA thrombectomy subsequently transferred to the rehab unit at the [facility] patient has had a protracted stay at the inpatient rehab he needs including placement of feeding tube to stay which was complicated by aspiration pneumonia 2. Status post PEG tube placement ~patient currently on Jevity via tube feeding 3. Hypertension ~ blood pressure controlled, home medications continued with dose adjustment as needed 4. Paroxysmal atrial fibrillation ~Patient is on flecainide was on systemic anticoagulation with Eliquis 5. Dyslipidemia ~patient is on statin therapy, continued at home dose 6. Hypokalemia ~corrected per protocol 7. Left acromioclavicular DJD with significant pain ~ status post steroid injection 8. Depression with anxiety patient is on Seroquel as well as Ativan as needed 9. Aspiration pneumonia ?Resolved 10. Oral candidiasis ?Resolved 9. DVT prophylaxis ~On apixaban Active Medications Acetaminophen (Tylenol Liquid) 1,000 mg GT TID [facility] Last Admin: 07/24/19 05:58 Dose: 1,000 mg Documented by: Amlodipine Besylate (Norvasc) 10 mg PO DAILY [facility] Last Admin: 07/24/19 08:28 Dose: 10 mg Documented by: Apixaban (Eliquis) 5 mg GT BID [facility] Last Admin: 07/24/19 08:27 Dose: 5 mg Documented by: Atorvastatin Calcium (Lipitor) 40 mg GT QHS [facility] Last Admin: 07/23/19 19:46 Dose: 40 mg Documented by: Bisacodyl (Dulcolax) 10 mg RECTAL .PRN X 1 PRN PRN Reason: Constipation Calamine/Phenol (Calmoseptine Ointment) 1 applic TOPICAL BID [facility]; Protocol Last Admin: 07/24/19 08:40 Dose: 1 applicatio Documented by: Carvedilol (Coreg) 12.5 mg GT BID [facility] Last Admin: 07/24/19 08:27 Dose: 12.5 mg Documented by: Duloxetine HCl (Cymbalta) 60 mg PO DAILY [facility] Last Admin: 07/24/19 08:27 Dose: 60 mg Documented by: Enteral Nutritional Formula (Jevity 1.5) 240 ml GT 5X/DAY [facility] Last Admin: 07/24/19 08:49 Dose: 240 ml Documented by: Famotidine (Pepcid) 20 mg GT DAILY [facility] Last Admin: 07/24/19 08:28 Dose: 20 mg Documented by: Flecainide Acetate (Tambocor) 100 mg GT BID [facility] Last Admin: 07/24/19 08:28 Dose: 100 mg Documented by: Hydrochlorothiazide (Hctz) 25 mg GT DAILY [facility] Last Admin: 07/24/19 08:28 Dose: 25 mg Documented by: Lactobacillus Acidophilus (Acidophilus) 1 tablet GT BID [facility] Last Admin: 07/24/19 08:27 Dose: 1 tablet Documented by: Latanoprost (Xalatan Opthalmic) 1 drop EACH EYE DAILY@220 [facility] Last Admin: 07/23/19 19:46 Dose: 1 drop Documented by: Loperamide HCl (Imodium) 2 mg PO Q4H PRN PRN PRN Reason: DIARRHEA/LOOSE STOOLS Last Admin: 07/24/19 08:28 Dose: 2 mg Documented by: Losartan Potassium (Cozaar) 100 mg GT DAILY [facility] Last Admin: 07/24/19 08:27 Dose: 100 mg Documented by: Magnesium Hydroxide (Milk Of Magnesia) 30 ml PO .PRN X 1 PRN PRN Reason: Constipation Last Admin: 07/08/19 17:32 Dose: 30 ml Documented by: Multi-Ingredient Cream (Eucerin) 1 applic TOPICAL TID PRN PRN; Protocol PRN Reason: Dry Skin Potassium Chloride (Potassium Chl Soln) 20 meq GT DAILY [facility] Last Admin: 07/24/19 08:27 Dose: 20 meq Documented by: Quetiapine Fumarate (Seroquel) 37.5 mg GT DAILY@1999 [facility] Last Admin: 07/23/19 19:47 Dose: 37.5 mg Documented by: Sodium Chloride () 5 - 15 ml IV UD PRN PRN Reason: SALINE FLUSH Last Admin: 06/19/19 06:13 Dose: 10 ml Documented by: Code Visit Inpatient E&M: [id number] Subs Hosp L2
[2019-07-24] MEDS: APIXABAN 5 MG TABLET GT ×2 (08:27→20:49)
[2019-07-24] MEDS: Carvedilol 12.5 MG Tablet GT ×2 (08:27→20:48)
[2019-07-24] MEDS: Losartan Potassium 100 MG Tablet GT (08:27)
[2019-07-24] MEDS: DULoxetine Hcl 60 MG Capsule PO (08:27)
[2019-07-24] MEDS: Famotidine 20 MG Tablet GT (08:28)
[2019-07-24] MEDS: hydroCHLOROthiazide 25 MG Tablet GT (08:28)
[2019-07-24] MEDS: Flecainide 100 MG Tablet GT ×2 (08:28→20:49)
[2019-07-24] MEDS: Loperamide 2 MG Capsule PO (08:28)
[2019-07-24] MEDS: amLODIPine 10 MG Tablet PO (08:28)
[2019-07-24] MEDS: Menthol/Lanolin/Calamine/Znox 113 GM Tube 1 APPLIC TOPICAL ×2 (08:40→20:48)
[2019-07-24 08:59] VITALS: BP 126/78; PULSE 65; RESP 16; TEMP 36.4; O2SAT 96
--- NOTE | 2019-07-24 12:28 | PCM.PN.NEU ---
Subjective: No issues overnight. Care discussed with the nursing staff. - Physical Exam Vitals/I&O's: Vital Signs Temp Pulse Resp BP Pulse Ox 97.6 F L 65 16 126/78 H 96 07/24/19 08:59 07/24/19 08:59 07/24/19 08:59 07/24/19 08:59 07/24/19 08:59 Oxygen Delivery Method Room Air Weight: 65.2 kg Body Mass Index (BMI) 23.8 Finger Stick Blood Glucose 143 Intake and Output for Last 24 Hours 07/22/19 07/23/19 07/24/19 23:59 23:59 23:59 Intake Total 2370 / 2370 2040 / 2040 390 / 390 Output Total 1450 / 1450 100 / 100 400 / 400 Balance 920 / 920 1940 / 1940 -10 / -10 General: Alert HEENT: Normocephalic Neck: Supple Lungs: Normal air movement Cardiovascular: Normal S1, Normal S2 Abdomen: Bowel Sounds Present Extremities: No cyanosis Neurological: - - conscious, alert, CN II to XII grossly intact except 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, power 5/5 right upper and lower extremities, 3/5 Left UE, 3/5 left LE, plantars right flexor, left mute, no pronator drift, left sensory loss with left sensory neglect, no cerebellar signs, gait deferred, reflexes + B/L B/S/T/K/A, dysarthria +,No NR, fundus not visualized Psych/Mental Status: Normal Affect Current Medications Acetaminophen (Tylenol Liquid) 1,000 mg GT TID [facility] Last Admin: 07/24/19 05:58 Dose: 1,000 mg Documented by: Amlodipine Besylate (Norvasc) 10 mg PO DAILY [facility] Last Admin: 07/24/19 08:28 Dose: 10 mg Documented by: Apixaban (Eliquis) 5 mg GT BID [facility] Last Admin: 07/24/19 08:27 Dose: 5 mg Documented by: Atorvastatin Calcium (Lipitor) 40 mg GT QHS [facility] Last Admin: 07/23/19 19:46 Dose: 40 mg Documented by: Bisacodyl (Dulcolax) 10 mg RECTAL .PRN X 1 PRN PRN Reason: Constipation Calamine/Phenol (Calmoseptine Ointment) 1 applic TOPICAL BID [facility]; Protocol Last Admin: 07/24/19 08:40 Dose: 1 applicatio Documented by: Carvedilol (Coreg) 12.5 mg GT BID [facility] Last Admin: 07/24/19 08:27 Dose: 12.5 mg Documented by: Duloxetine HCl (Cymbalta) 60 mg PO DAILY [facility] Last Admin: 07/24/19 08:27 Dose: 60 mg Documented by: Enteral Nutritional Formula (Jevity 1.5) 240 ml GT 5X/DAY [facility] Last Admin: 07/24/19 08:49 Dose: 240 ml Documented by: Famotidine (Pepcid) 20 mg GT DAILY [facility] Last Admin: 07/24/19 08:28 Dose: 20 mg Documented by: Flecainide Acetate (Tambocor) 100 mg GT BID [facility] Last Admin: 07/24/19 08:28 Dose: 100 mg Documented by: Hydrochlorothiazide (Hctz) 25 mg GT DAILY [facility] Last Admin: 07/24/19 08:28 Dose: 25 mg Documented by: Lactobacillus Acidophilus (Acidophilus) 1 tablet GT BID [facility] Last Admin: 07/24/19 08:27 Dose: 1 tablet Documented by: Latanoprost (Xalatan Opthalmic) 1 drop EACH EYE DAILY@2199 [facility] Last Admin: 07/23/19 19:46 Dose: 1 drop Documented by: Loperamide HCl (Imodium) 2 mg PO Q4H PRN PRN PRN Reason: DIARRHEA/LOOSE STOOLS Last Admin: 07/24/19 08:28 Dose: 2 mg Documented by: Losartan Potassium (Cozaar) 100 mg GT DAILY [facility] Last Admin: 07/24/19 08:27 Dose: 100 mg Documented by: Magnesium Hydroxide (Milk Of Magnesia) 30 ml PO .PRN X 1 PRN PRN Reason: Constipation Last Admin: 07/08/19 17:32 Dose: 30 ml Documented by: Multi-Ingredient Cream (Eucerin) 1 applic TOPICAL TID PRN PRN; Protocol PRN Reason: Dry Skin Potassium Chloride (Potassium Chl Soln) 20 meq GT DAILY [facility] Last Admin: 07/24/19 08:27 Dose: 20 meq Documented by: Quetiapine Fumarate (Seroquel) 37.5 mg GT DAILY@1999 [facility] Last Admin: 07/23/19 19:47 Dose: 37.5 mg Documented by: Sodium Chloride () 5 - 15 ml IV UD PRN PRN Reason: SALINE FLUSH Last Admin: 06/19/19 06:13 Dose: 10 ml Documented by: STROKE Vital Signs/Narrative: Vital Signs Temp Pulse Resp BP Pulse Ox 07/24/19 08:59 97.6 F L 65 16 126/78 H 96 Medical Necessity - Tobacco Use Smoking Status: Never smoker Tobacco Use: Non-smoker Assessment/Plan All Active Problems (Last Reviewed 07/09/19 @ 07:57 by Kathi Shields) CVA (cerebral vascular accident) (Acute 05/2019) The patient is a 79 year old F with PMH of HTN, HLD, CAD, DM type II, A-fib with RVR, pacemaker, RUDY, anxiety and depression admitted to [facility] IPR on 06/06/2019 with debility secondary to right MCA with right M1 occlusion s/p post thrombectomy, for > 3 hours of therapy daily with a goal of returning home at or near her prior level of independence. She presented to [facility] ER on 05/23/2019 due to patient was found laying on the ground in her garage with left-sided deficits. NIH was 20. CT of brain suggestive of thrombus in the right MCA and an early infarct in the right MCA territory. CTA head and neck with contrast impression right MCA occlusion. No TPA and patient was transferred to [facility]. On 05/23/19, neurosurgeon Dr. Doll formed the right MCA thrombectomy, due to right DE occlusion. Postprocedural right ICA arteriogram demonstrated TICI?2b revascularization. CT of head without contrast on 06/04/2019 right MCA territory infarct with decrease edema noted in resolution of previously noted mass-effect of the right lateral ventricle and resolution of previously noted midline shift. Scattered hemorrhage within the infarct is less well. No new hemorrhage is identified.. Unable to obtain MRI due to pacemaker. TTE done which showed ejection fraction 65 to 70% and RVSP 41-45 mmHg. LDL 116, HgbA1c 6.5%. Prior to hospitalization patient was on Xarelto 15 mg daily for A. fib, was discontinued by [facility]. Plan - PT for gait stability - OT for ADLs - ST - PEG placement 06/13/19 - Right MCA infarct post thrombectomy on statin, asa, antihypertensives. Repeat CT head 06/10/2019 shows stable right MCA stroke with no new hemorrhage. Eliquis 5 mg p.o. twice daily started from 06/14/2019 post PEG placement, stroke initially occurred on 05/23/2019. Aspirin stopped once Eliquis was started, as per patient she was not on aspirin at home at baseline. - HTN on Losartan, HCTZ, amlodipine and Coreg. Goal blood pressure less than 130/80, avoid hypotension. Started on amlodipine from 07/11/2019. Tolerating medication well. - A-fib- on flecainide xeralto discontinued by [facility]. Here started on Eliquis 5 mg p.o. twice daily from 06/14/2019 after PEG placed on 06/13/19, stroke initially occurred on 05/23/2019. - DM- metformin on hold, accuchecks ac/hs, HgbA1c 6.4% -Left acromioclavicular arthritis?pain management consult, steroid injections per pain management, will defer further medical evaluation and management to pain management. Orthopedic consult as outpatient as orthopedics will not be seeing patients in the rehab.. - S/P PEG- on jevity and sterile water flushes - HLD on lipitor LDL 116 - RUDY stable 06/15/19 H/H 10.3/31.7 - Anxiety/depression on cymbalta - Insomnia/visual hallucinations-on Seroquel - GI/DVT prophylaxis pepcid/Eliquis, knee high nataly hose - Further medical management per hospitalist-consult - Analgesics as needed - Bowel protocol - F/U neurosurgeon Dr. Harrison, PCP, neurology, cardiology, orthopedics and pain management
[2019-07-24 14:58] VITALS: BMI 23.8
[2019-07-24] MEDS: QUEtiapine 25 MG Tablet 37.5 MG GT (20:48)
[2019-07-24] MEDS: Atorvastatin Calcium 40 MG Tablet GT (20:49)
[2019-07-24] MEDS: Latanoprost 0.005% 1 Bottle 1 DRP EACH EYE (20:49)
[2019-07-24 21:31] VITALS: BP 129/75; PULSE 64; RESP 16; TEMP 36.6; O2SAT 95
[2019-07-24 21:49] VITALS: BMI 23.8
--- NOTE | 2019-07-25 00:40 | NURSING ---
REVIEWED AND AGREE WITH SENIOR ARCHITECTURAL DESIGNER'S FUNCTIONAL ASSESSMENT AND HANDOFF CHARTING.
[2019-07-25] MEDS: Acetaminophen 650 MG/20 ML UDC 1000 MG GT ×3 (06:00→20:14)
[2019-07-25] MEDS: Jevity 1.5. 1,000 ML Bottle 240 ML GT ×5 (06:00→20:13)
[2019-07-25 07:00] VITALS: BP 131/72; PULSE 66; RESP 16; TEMP 36.4; O2SAT 96
[2019-07-25] MEDS: Carvedilol 12.5 MG Tablet GT ×2 (09:22→20:13)
[2019-07-25] MEDS: amLODIPine 10 MG Tablet PO (09:22)
[2019-07-25] MEDS: Flecainide 100 MG Tablet GT ×2 (09:22→20:14)
[2019-07-25] MEDS: hydroCHLOROthiazide 25 MG Tablet GT (09:22)
[2019-07-25] MEDS: Losartan Potassium 100 MG Tablet GT (09:22)
[2019-07-25] MEDS: DULoxetine Hcl 60 MG Capsule PO (09:22)
[2019-07-25] MEDS: Famotidine 20 MG Tablet GT (09:22)
[2019-07-25] MEDS: APIXABAN 5 MG TABLET GT ×2 (09:23→20:13)
[2019-07-25] MEDS: Menthol/Lanolin/Calamine/Znox 113 GM Tube 1 APPLIC TOPICAL ×2 (09:23→20:12)
[2019-07-25] MEDS: Loperamide 2 MG Capsule PO (09:52)
--- NOTE | 2019-07-25 12:23 | CON.PCM_ITS ---
Reason for Consult History of Present Illness: The patient is a 79 year old F [] Past Medical History Past Medical History (Chronic Problems): Chronic Problems (Last Reviewed 07/09/19 @ 07:57 by Kathi Shields) Sick sinus syndrome (Chronic) PAF (paroxysmal atrial fibrillation) (Chronic) Presence of permanent cardiac pacemaker (Chronic 07/13/15) 07/13/15, 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 on chronic diastolic (congestive) heart failure (Chronic) I50.33 Secondary pulmonary arterial hypertension (Chronic) I27.21 Essential (primary) hypertension (Chronic) I10 Hyperlipidemia (Chronic) E78.5 AV junctional bradycardia R00.1 Anxiety F41.9 DM II (diabetes mellitus, type II), controlled E11.9 Depression F32.9 Diastolic dysfunction I51.9 Lumbar disc herniation with radiculopathy M51.16 Nonobstructive atherosclerosis of coronary artery I25.10 Iron deficiency anemia D50.9 Syncope and collapse R55 Abnormal thyroid function test (Inactive) Non-rheumatic tricuspid valve insufficiency (Inactive) I36.1 Stool incontinence (Inactive) R15.9 Allergies amlodipine Adverse Reaction (Mild, Verified 07/11/19 15:14) Itching mild itching (Dr Joselo stock) Home Medications: Ambulatory Orders Medication Instructions Recorded Valsartan [Diovan] 160 mg PO BID 10/19/15 Latanoprost 0.005% [Xalatan 1 drp EACH EYE QHS 03/21/17 Opthalmic] Atorvastatin Calcium [Lipitor] 40 mg PO QHS 06/06/19 Carvedilol [Coreg] 6.25 mg PO Q8H 06/06/19 Duloxetine Hcl [Cymbalta] 60 mg PO DAILY 06/06/19 Flecainide [Tambocor] 100 mg PO BID 06/06/19 Quetiapine Fumarate [Seroquel] 12.5 mg PO DAILY 06/06/19 aspirin 81 mg chewable tablet 81 mg PO DAILY 07/08/19 Surgical History: Surgical History (Last Reviewed 07/09/19 @ 07:57 by Kathi hSields) History of left heart catheterization Onset Date: 01/2010 Z98.890 History of hysterectomy Z98.890, Z90.710 History of knee surgery Z98.890 History of lumbar discectomy Z98.890 X 2 Surgical History: appendectomy, cataract - She has had bilateral cataract extraction with intraocular lens implant., hysterectomy - Patient states that she still has her ovaries and the hysterectomy was done for dysfunctional uterine bleeding., - - Surgery on the right knee to repair her meniscus. Psychiatric History: Anxiety, Depression - Patient states that recently she has been more depressed than usual. She is frequently tired and has no motivation. She has also been having increased appetite to comfort herself. She has difficulty sleeping and feels stressed. LEADER TIER History: dysfunctional uterine bld Lives: With Family Smoking Status: Never smoker Tobacco Use: Non-smoker Alcohol: Rare Drugs: None - *Family History Paternal Family History: Family History (Last Reviewed 07/09/19 @ 07:57 by Kathi Shields) Sister Diabetes Hypertension Father Heart disease Hypertension Myocardial infarction Mother Cancer History Items: Heart Disease, Hypertension, Stroke Maternal Family History: Family History (Last Reviewed 07/09/19 @ 07:57 by Kathi Shields) Sister Diabetes Hypertension Father Heart disease Hypertension Myocardial infarction Mother Cancer History Items: Stroke - in maternal CVA, - - mother of lung CA Sibling Family History: Family History (Last Reviewed 07/09/19 @ 07:57 by Kathi Shields) Sister Diabetes Hypertension Father Heart disease Hypertension Myocardial infarction Mother Cancer History Items: - - she has a younger sister who had a stroke from a AVM in the brain Review of Systems Constitutional: Denies: Chills, Fever, Weight Change HEENT: Denies: Head Aches, Nasal bleeding, Sinus Congestion, Sinus Drainage - Physical Exam Vitals/I&O's: Vital Signs Temp Pulse Resp BP Pulse Ox 97.6 F L 66 16 131/72 H 96 07/25/19 07:00 07/25/19 07:00 07/25/19 07:00 07/25/19 07:00 07/25/19 07:00 Oxygen Delivery Method Room Air Weight: 143 lb 11.862 oz Body Mass Index (BMI) 23.8 Finger Stick Blood Glucose 143 Intake and Output for Last 24 Hours 07/23/19 07/24/19 07/25/19 23:59 23:59 23:59 Intake Total 2039 / 0 1950 / 1950 780 / 780 Output Total 100 / 100 1200 / 1200 450 / 450 Balance 1940 / 1940 750 / 750 330 / 330 Current Medications Acetaminophen (Tylenol Liquid) 1,000 mg GT TID [facility] Last Admin: 07/25/19 06:00 Dose: 1,000 mg Documented by: Amlodipine Besylate (Norvasc) 10 mg PO DAILY [facility] Last Admin: 07/25/19 09:22 Dose: 10 mg Documented by: Apixaban (Eliquis) 5 mg GT BID [facility] Last Admin: 07/25/19 09:23 Dose: 5 mg Documented by: Atorvastatin Calcium (Lipitor) 40 mg GT QHS [facility] Last Admin: 07/24/19 20:49 Dose: 40 mg Documented by: Bisacodyl (Dulcolax) 10 mg RECTAL .PRN X 1 PRN PRN Reason: Constipation Calamine/Phenol (Calmoseptine Ointment) 1 applic TOPICAL BID [facility]; Protocol Last Admin: 07/25/19 09:23 Dose: 1 applicatio Documented by: Carvedilol (Coreg) 12.5 mg GT BID [facility] Last Admin: 07/25/19 09:22 Dose: 12.5 mg Documented by: Duloxetine HCl (Cymbalta) 60 mg PO DAILY [facility] Last Admin: 07/25/19 09:22 Dose: 60 mg Documented by: Enteral Nutritional Formula (Jevity 1.5) 240 ml GT 5X/DAY [facility] Last Admin: 07/25/19 09:23 Dose: 240 ml Documented by: Famotidine (Pepcid) 20 mg GT DAILY [facility] Last Admin: 07/25/19 09:22 Dose: 20 mg Documented by: Flecainide Acetate (Tambocor) 100 mg GT BID [facility] Last Admin: 07/25/19 09:22 Dose: 100 mg Documented by: Hydrochlorothiazide (Hctz) 25 mg GT DAILY [facility] Last Admin: 07/25/19 09:22 Dose: 25 mg Documented by: Lactobacillus Acidophilus (Acidophilus) 1 tablet GT BID [facility] Last Admin: 07/25/19 09:22 Dose: 1 tablet Documented by: Latanoprost (Xalatan Opthalmic) 1 drop EACH EYE DAILY@2199 [facility] Last Admin: 07/24/19 20:49 Dose: 1 drop Documented by: Loperamide HCl (Imodium) 2 mg PO Q4H PRN PRN PRN Reason: DIARRHEA/LOOSE STOOLS Last Admin: 07/25/19 09:52 Dose: 2 mg Documented by: Losartan Potassium (Cozaar) 100 mg GT DAILY [facility] Last Admin: 07/25/19 09:22 Dose: 100 mg Documented by: Magnesium Hydroxide (Milk Of Magnesia) 30 ml PO .PRN X 1 PRN PRN Reason: Constipation Last Admin: 07/08/19 17:32 Dose: 30 ml Documented by: Multi-Ingredient Cream (Eucerin) 1 applic TOPICAL TID PRN PRN; Protocol PRN Reason: Dry Skin Potassium Chloride (Potassium Chl Soln) 20 meq GT DAILY [facility] Last Admin: 07/25/19 09:23 Dose: 20 meq Documented by: Quetiapine Fumarate (Seroquel) 37.5 mg GT DAILY@1999 [facility] Last Admin: 07/24/19 20:48 Dose: 37.5 mg Documented by: Sodium Chloride () 5 - 15 ml IV UD PRN PRN Reason: SALINE FLUSH Last Admin: 06/19/19 06:13 Dose: 10 ml Documented by: Assessment/Plan All Active Problems (Last Reviewed 07/09/19 @ 07:57 by Kathi Shields) CVA (cerebral vascular accident) (Acute 05/2019)
--- NOTE | 2019-07-25 12:27 | PCM.PN.NEU ---
Subjective: No issues overnight. Care discussed with the nursing staff. - Physical Exam Vitals/I&O's: Vital Signs Temp Pulse Resp BP Pulse Ox 97.6 F L 66 16 131/72 H 96 07/25/19 07:00 07/25/19 07:00 07/25/19 07:00 07/25/19 07:00 07/25/19 07:00 Oxygen Delivery Method Room Air Weight: 65.2 kg Body Mass Index (BMI) 23.8 Finger Stick Blood Glucose 143 Intake and Output for Last 24 Hours 07/23/19 07/24/19 07/25/19 23:59 23:59 23:59 Intake Total 2039 / 2039 1950 / 1950 780 / 780 Output Total 100 / 100 1200 / 1200 450 / 450 Balance 194 / 194 750 / 750 330 / 330 General: Alert HEENT: Normocephalic Neck: Supple Lungs: Normal air movement Cardiovascular: Normal S1, Normal S2 Abdomen: Bowel Sounds Present Extremities: No cyanosis Neurological: - - conscious, alert, CN II to XII grossly intact except 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, power 5/5 right upper and lower extremities, 3/5 Left UE, 3/5 left LE, plantars right flexor, left mute, no pronator drift, left sensory loss with left sensory extinction, no cerebellar signs, gait deferred, reflexes + B/L B/S/T/K/A, dysarthria +,No NR, fundus not visualized Psych/Mental Status: Normal Affect Current Medications Acetaminophen (Tylenol Liquid) 1,000 mg GT TID [facility] Last Admin: 07/25/19 06:00 Dose: 1,000 mg Documented by: Amlodipine Besylate (Norvasc) 10 mg PO DAILY [facility] Last Admin: 07/25/19 09:22 Dose: 10 mg Documented by: Apixaban (Eliquis) 5 mg GT BID [facility] Last Admin: 07/25/19 09:23 Dose: 5 mg Documented by: Atorvastatin Calcium (Lipitor) 40 mg GT QHS [facility] Last Admin: 07/24/19 20:49 Dose: 40 mg Documented by: Bisacodyl (Dulcolax) 10 mg RECTAL .PRN X 1 PRN PRN Reason: Constipation Calamine/Phenol (Calmoseptine Ointment) 1 applic TOPICAL BID [facility]; Protocol Last Admin: 07/25/19 09:23 Dose: 1 applicatio Documented by: Carvedilol (Coreg) 12.5 mg GT BID [facility] Last Admin: 07/25/19 09:22 Dose: 12.5 mg Documented by: Duloxetine HCl (Cymbalta) 60 mg PO DAILY [facility] Last Admin: 07/25/19 09:22 Dose: 60 mg Documented by: Enteral Nutritional Formula (Jevity 1.5) 240 ml GT 5X/DAY [facility] Last Admin: 07/25/19 09:23 Dose: 240 ml Documented by: Famotidine (Pepcid) 20 mg GT DAILY [facility] Last Admin: 07/25/19 09:22 Dose: 20 mg Documented by: Flecainide Acetate (Tambocor) 100 mg GT BID [facility] Last Admin: 07/25/19 09:22 Dose: 100 mg Documented by: Hydrochlorothiazide (Hctz) 25 mg GT DAILY [facility] Last Admin: 07/25/19 09:22 Dose: 25 mg Documented by: Lactobacillus Acidophilus (Acidophilus) 1 tablet GT BID [facility] Last Admin: 07/25/19 09:22 Dose: 1 tablet Documented by: Latanoprost (Xalatan Opthalmic) 1 drop EACH EYE DAILY@2200 [facility] Last Admin: 07/24/19 20:49 Dose: 1 drop Documented by: Loperamide HCl (Imodium) 2 mg PO Q4H PRN PRN PRN Reason: DIARRHEA/LOOSE STOOLS Last Admin: 07/25/19 09:52 Dose: 2 mg Documented by: Losartan Potassium (Cozaar) 100 mg GT DAILY [facility] Last Admin: 07/25/19 09:22 Dose: 100 mg Documented by: Magnesium Hydroxide (Milk Of Magnesia) 30 ml PO .PRN X 1 PRN PRN Reason: Constipation Last Admin: 07/08/19 17:32 Dose: 30 ml Documented by: Multi-Ingredient Cream (Eucerin) 1 applic TOPICAL TID PRN PRN; Protocol PRN Reason: Dry Skin Potassium Chloride (Potassium Chl Soln) 20 meq GT DAILY [facility] Last Admin: 07/25/19 09:23 Dose: 20 meq Documented by: Quetiapine Fumarate (Seroquel) 37.5 mg GT DAILY@2000 [facility] Last Admin: 07/24/19 20:48 Dose: 37.5 mg Documented by: Sodium Chloride () 5 - 15 ml IV UD PRN PRN Reason: SALINE FLUSH Last Admin: 06/19/19 06:13 Dose: 10 ml Documented by: Medical Necessity - Tobacco Use Smoking Status: Never smoker Tobacco Use: Non-smoker Assessment/Plan All Active Problems (Last Reviewed 07/09/19 @ 07:57 by Kathi Shields) CVA (cerebral vascular accident) (Acute 05/2019) The patient is a 79 year old F with PMH of HTN, HLD, CAD, DM type II, A-fib with RVR, pacemaker, RUDY, anxiety and depression admitted to [facility] IPR on 06/06/2019 with debility secondary to right MCA with right M1 occlusion s/p post thrombectomy, for > 3 hours of therapy daily with a goal of returning home at or near her prior level of independence. She presented to [facility] ER on 05/23/2019 due to patient was found laying on the ground in her garage with left-sided deficits. NIH was 20. CT of brain suggestive of thrombus in the right MCA and an early infarct in the right MCA territory. CTA head and neck with contrast impression right MCA occlusion. No TPA and patient was transferred to [facility]. On 05/23/19, neurosurgeon Dr. Doll formed the right MCA thrombectomy, due to right PR occlusion. Postprocedural right ICA arteriogram demonstrated TICI?2b revascularization. CT of head without contrast on 06/04/2019 right MCA territory infarct with decrease edema noted in resolution of previously noted mass-effect of the right lateral ventricle and resolution of previously noted midline shift. Scattered hemorrhage within the infarct is less well. No new hemorrhage is identified.. Unable to obtain MRI due to pacemaker. TTE done which showed ejection fraction 65 to 70% and RVSP 41-45 mmHg. LDL 116, HgbA1c 6.5%. Prior to hospitalization patient was on Xarelto 15 mg daily for A. fib, was discontinued by [facility]. Plan - PT for gait stability - OT for ADLs - ST - PEG placement 06/13/19 - Right MCA infarct post thrombectomy on statin, asa, antihypertensives. Repeat CT head 06/10/2019 shows stable right MCA stroke with no new hemorrhage. Eliquis 5 mg p.o. twice daily started from 06/14/2019 post PEG placement, stroke initially occurred on 05/23/2019. Aspirin stopped once Eliquis was started, as per patient she was not on aspirin at home at baseline. - HTN on Losartan, HCTZ, amlodipine and Coreg. Goal blood pressure less than 130/80, avoid hypotension. Started on amlodipine from 07/11/2019. Tolerating medication well. - A-fib- on flecainide xeralto discontinued by [facility]. Here started on Eliquis 5 mg p.o. twice daily from 06/14/2019 after PEG placed on 06/13/19, stroke initially occurred on 05/23/2019. - DM- metformin on hold, accuchecks ac/hs, HgbA1c 6.4% -Left acromioclavicular arthritis?pain management consult, steroid injections per pain management, will defer further medical evaluation and management to pain management. Orthopedic consult as outpatient as orthopedics will not be seeing patients in the rehab.. - S/P PEG- on jevity and sterile water flushes - HLD on lipitor LDL 116 - RUDY stable 06/15/19 H/H 10.3/31.7 - Anxiety/depression on cymbalta - Insomnia/visual hallucinations-on Seroquel - GI/DVT prophylaxis pepcid/Eliquis, knee high nataly hose - Further medical management per hospitalist-consult - Analgesics as needed - Bowel protocol - F/U neurosurgeon Dr. Harrison, PCP, neurology, cardiology, orthopedics and pain management
[2019-07-25 14:30] VITALS: BP 132/87; PULSE 60
[2019-07-25 15:06] VITALS: BMI 23.8
[2019-07-25] MEDS: QUEtiapine 25 MG Tablet 37.5 MG GT (20:09)
[2019-07-25] MEDS: Atorvastatin Calcium 40 MG Tablet GT (20:14)
[2019-07-25] MEDS: Latanoprost 0.005% 1 Bottle 1 DRP EACH EYE (20:16)
[2019-07-25 20:51] VITALS: BP 133/68; PULSE 62; RESP 16; TEMP 36.5; O2SAT 95
[2019-07-25 22:42] VITALS: BMI 23.8
--- NOTE | 2019-07-26 01:34 | NURSING ---
REVIEWED AND AGREE WITH PROCESS EXCELLENCE MANAGER'S FUNCTIONAL ASSESSMENT AND HANDOFF CHARTING.
[2019-07-26] MEDS: Jevity 1.5. 1,000 ML Bottle 240 ML GT ×5 (05:22→19:54)
[2019-07-26] MEDS: Acetaminophen 650 MG/20 ML UDC 1000 MG GT ×3 (05:22→19:55)
[2019-07-26 07:13] VITALS: BP 136/72; PULSE 64; RESP 16; TEMP 36.7; O2SAT 98
[2019-07-26] MEDS: Carvedilol 12.5 MG Tablet GT ×2 (10:02→19:54)
[2019-07-26] MEDS: Losartan Potassium 100 MG Tablet GT (10:03)
[2019-07-26] MEDS: DULoxetine Hcl 60 MG Capsule PO (10:03)
[2019-07-26] MEDS: Loperamide 2 MG Capsule PO (10:03)
[2019-07-26] MEDS: amLODIPine 10 MG Tablet PO (10:03)
[2019-07-26] MEDS: APIXABAN 5 MG TABLET GT ×2 (10:03→19:54)
[2019-07-26] MEDS: hydroCHLOROthiazide 25 MG Tablet GT (10:03)
[2019-07-26] MEDS: Famotidine 20 MG Tablet GT (10:03)
[2019-07-26] MEDS: Flecainide 100 MG Tablet GT ×2 (10:03→19:55)
[2019-07-26] MEDS: Menthol/Lanolin/Calamine/Znox 113 GM Tube 1 APPLIC TOPICAL ×2 (10:04→19:54)
--- NOTE | 2019-07-26 11:53 | PCM.PN.HOSP ---
Subjective: Patient was seen and examined. Denies any new complaints. Therapy is going well. Vitals/I&O's: Vital Signs Temp Pulse Resp BP Pulse Ox 98.1 F 64 16 136/72 H 98 07/26/19 07:13 07/26/19 07:13 07/26/19 07:13 07/26/19 07:13 07/26/19 07:13 Oxygen Delivery Method Room Air Weight: 65.2 kg Body Mass Index (BMI) 23.8 Finger Stick Blood Glucose 143 Intake and Output for Last 24 Hours 07/24/19 07/25/19 07/26/19 23:59 23:59 23:59 Intake Total 1950 / 1950 2730 / 2730 780 / 780 Output Total 1200 / 1200 450 / 450 300 / 300 Balance 750 / 750 2280 / 2280 480 / 480 General: Alert, Oriented x3, Cooperative, No apparent distress HEENT: Atraumatic, PERRLA, EOMI, Normocephalic Oral: Moist Mucosa Neck: Supple Lungs: Clear to auscultation, Normal air movement Cardiovascular: Regular rate, Regular Rhythm, Normal S1, Normal S2, No murmurs Abdomen: Bowel Sounds Present, Soft, Non Tender, Non-Distended, No Hepato-splenomegaly Extremities: No edema Skin: No rashes, No breakdown Musculoskeletal: No Tenderness to Palpation of Joints or Extremities Neurological: - - Left facial droop, power in LUE 2/5, power in LLE 4/5, power in RUE/RLE is 5/5. Psych/Mental Status: Normal Affect, Appropriate Current Medications Acetaminophen (Tylenol Liquid) 1,000 mg GT TID [facility] Last Admin: 07/26/19 05:22 Dose: 1,000 mg Documented by: Amlodipine Besylate (Norvasc) 10 mg PO DAILY [facility] Last Admin: 07/26/19 10:03 Dose: 10 mg Documented by: Apixaban (Eliquis) 5 mg GT BID [facility] Last Admin: 07/26/19 10:03 Dose: 5 mg Documented by: Atorvastatin Calcium (Lipitor) 40 mg GT QHS [facility] Last Admin: 07/25/19 20:14 Dose: 40 mg Documented by: Bisacodyl (Dulcolax) 10 mg RECTAL .PRN X 1 PRN PRN Reason: Constipation Calamine/Phenol (Calmoseptine Ointment) 1 applic TOPICAL BID [facility]; Protocol Last Admin: 07/26/19 10:04 Dose: 1 applicatio Documented by: Carvedilol (Coreg) 12.5 mg GT BID [facility] Last Admin: 07/26/19 10:02 Dose: 12.5 mg Documented by: Duloxetine HCl (Cymbalta) 60 mg PO DAILY [facility] Last Admin: 07/26/19 10:03 Dose: 60 mg Documented by: Enteral Nutritional Formula (Jevity 1.5) 240 ml GT 5X/DAY [facility] Last Admin: 07/26/19 10:04 Dose: 240 ml Documented by: Famotidine (Pepcid) 20 mg GT DAILY [facility] Last Admin: 07/26/19 10:03 Dose: 20 mg Documented by: Flecainide Acetate (Tambocor) 100 mg GT BID [facility] Last Admin: 07/26/19 10:03 Dose: 100 mg Documented by: Hydrochlorothiazide (Hctz) 25 mg GT DAILY [facility] Last Admin: 07/26/19 10:03 Dose: 25 mg Documented by: Lactobacillus Acidophilus (Acidophilus) 1 tablet GT BID [facility] Last Admin: 07/26/19 10:02 Dose: 1 tablet Documented by: Latanoprost (Xalatan Opthalmic) 1 drop EACH EYE DAILY@2200 [facility] Last Admin: 07/25/19 20:16 Dose: 1 drop Documented by: Loperamide HCl (Imodium) 2 mg PO Q4H PRN PRN PRN Reason: DIARRHEA/LOOSE STOOLS Last Admin: 07/26/19 10:03 Dose: 2 mg Documented by: Losartan Potassium (Cozaar) 100 mg GT DAILY [facility] Last Admin: 07/26/19 10:03 Dose: 100 mg Documented by: Magnesium Hydroxide (Milk Of Magnesia) 30 ml PO .PRN X 1 PRN PRN Reason: Constipation Last Admin: 07/08/19 17:32 Dose: 30 ml Documented by: Multi-Ingredient Cream (Eucerin) 1 applic TOPICAL TID PRN PRN; Protocol PRN Reason: Dry Skin Potassium Chloride (Potassium Chl Soln) 20 meq GT DAILY [facility] Last Admin: 07/26/19 10:03 Dose: 20 meq Documented by: Quetiapine Fumarate (Seroquel) 37.5 mg GT DAILY@2000 [facility] Last Admin: 07/25/19 20:09 Dose: 37.5 mg Documented by: Sodium Chloride () 5 - 15 ml IV UD PRN PRN Reason: SALINE FLUSH Last Admin: 06/19/19 06:13 Dose: 10 ml Documented by: Medical Necessity - Tobacco Use Smoking Status: Never smoker Tobacco Use: Non-smoker Assessment/Plan All Active Problems (Last Reviewed 07/09/19 @ 07:57 by Kathi Shields) CVA (cerebral vascular accident) (Acute 05/2019) 79-year-old female with past medical history of chronic atrial fibrillation, hypertension, type II DM, hyperlipidemia, status post pacemaker admitted after an acute Right MCA stroke. He has had a long protracted in the acute rehab unit with aspiration pneumonia status post PEG tube placement. 1. Debility secondary to acute right MCA stroke status post right ICA thrombectomy On aspirin, statin, beta-rachna 2. s/p PEG tube placement, on Jevity 3. Hypertension, controlled, continue on amlodipine, carvedilol, hydrochlorothiazide, losartan Continue to monitor vitals closely 4. Paroxysmal atrial fibrillation, on flecainide and Eliquis 5. Type II DM, diet controlled, blood sugars are controlled 6. DVT PPx- Lovenox SC Code Visit Inpatient E&M: 27435 Subs Hosp L2
--- NOTE | 2019-07-26 13:12 | PN.NEURO_ITS ---
Subjective: No issues overnight. Care discussed with the nursing staff. - Physical Exam Vitals/I&O's: Vital Signs Temp Pulse Resp BP Pulse Ox 98.1 F 64 16 136/72 H 98 07/26/19 07:13 07/26/19 07:13 07/26/19 07:13 07/26/19 07:13 07/26/19 07:13 Oxygen Delivery Method Room Air Weight: 65.2 kg Body Mass Index (BMI) 23.8 Finger Stick Blood Glucose 143 Intake and Output for Last 24 Hours 07/24/19 07/25/19 07/26/19 23:59 23:59 23:59 Intake Total 1950 / 1950 2730 / 2730 780 / 780 Output Total 1200 / 1200 450 / 450 300 / 300 Balance 750 / 750 2280 / 2280 480 / 480 General: Alert HEENT: Normocephalic Neck: Supple Lungs: Normal air movement Cardiovascular: Normal S1, Normal S2 Abdomen: Bowel Sounds Present Extremities: No cyanosis Neurological: - - conscious, alert, CN II to XII grossly intact except 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, power 5/5 right upper and lower extremities, 3/5 Left UE, 3/5 left LE, plantars right flexor, left mute, no pronator drift, left sensory loss with left sensory extinction, no cerebellar signs, gait deferred, reflexes + B/L B/S/T/K/A, dysarthria +,No NR, fundus not visualized Psych/Mental Status: Normal Affect Current Medications Acetaminophen (Tylenol Liquid) 1,000 mg GT TID [facility] Last Admin: 07/26/19 05:22 Dose: 1,000 mg Documented by: Amlodipine Besylate (Norvasc) 10 mg PO DAILY [facility] Last Admin: 07/26/19 10:03 Dose: 10 mg Documented by: Apixaban (Eliquis) 5 mg GT BID [facility] Last Admin: 07/26/19 10:03 Dose: 5 mg Documented by: Atorvastatin Calcium (Lipitor) 40 mg GT QHS [facility] Last Admin: 07/25/19 20:14 Dose: 40 mg Documented by: Bisacodyl (Dulcolax) 10 mg RECTAL .PRN X 1 PRN PRN Reason: Constipation Calamine/Phenol (Calmoseptine Ointment) 1 applic TOPICAL BID [facility]; Protocol Last Admin: 07/26/19 10:04 Dose: 1 applicatio Documented by: Carvedilol (Coreg) 12.5 mg GT BID [facility] Last Admin: 07/26/19 10:02 Dose: 12.5 mg Documented by: Duloxetine HCl (Cymbalta) 60 mg PO DAILY [facility] Last Admin: 07/26/19 10:03 Dose: 60 mg Documented by: Enteral Nutritional Formula (Jevity 1.5) 240 ml GT 5X/DAY [facility] Last Admin: 07/26/19 10:04 Dose: 240 ml Documented by: Famotidine (Pepcid) 20 mg GT DAILY [facility] Last Admin: 07/26/19 10:03 Dose: 20 mg Documented by: Flecainide Acetate (Tambocor) 100 mg GT BID [facility] Last Admin: 07/26/19 10:03 Dose: 100 mg Documented by: Hydrochlorothiazide (Hctz) 25 mg GT DAILY [facility] Last Admin: 07/26/19 10:03 Dose: 25 mg Documented by: Lactobacillus Acidophilus (Acidophilus) 1 tablet GT BID [facility] Last Admin: 07/26/19 10:02 Dose: 1 tablet Documented by: Latanoprost (Xalatan Opthalmic) 1 drop EACH EYE DAILY@2200 [facility] Last Admin: 07/25/19 20:16 Dose: 1 drop Documented by: Loperamide HCl (Imodium) 2 mg PO Q4H PRN PRN PRN Reason: DIARRHEA/LOOSE STOOLS Last Admin: 07/26/19 10:03 Dose: 2 mg Documented by: Losartan Potassium (Cozaar) 100 mg GT DAILY [facility] Last Admin: 07/26/19 10:03 Dose: 100 mg Documented by: Magnesium Hydroxide (Milk Of Magnesia) 30 ml PO .PRN X 1 PRN PRN Reason: Constipation Last Admin: 07/08/19 17:32 Dose: 30 ml Documented by: Multi-Ingredient Cream (Eucerin) 1 applic TOPICAL TID PRN PRN; Protocol PRN Reason: Dry Skin Potassium Chloride (Potassium Chl Soln) 20 meq GT DAILY [facility] Last Admin: 07/26/19 10:03 Dose: 20 meq Documented by: Quetiapine Fumarate (Seroquel) 37.5 mg GT DAILY@2000 [facility] Last Admin: 07/25/19 20:09 Dose: 37.5 mg Documented by: Sodium Chloride () 5 - 15 ml IV UD PRN PRN Reason: SALINE FLUSH Last Admin: 06/19/19 06:13 Dose: 10 ml Documented by: Medical Necessity - Tobacco Use Smoking Status: Never smoker Tobacco Use: Non-smoker Assessment/Plan All Active Problems (Last Reviewed 07/09/19 @ 07:57 by Kathi Shields) CVA (cerebral vascular accident) (Acute 05/2019) The patient is a 79 year old F with PMH of HTN, HLD, CAD, DM type II, A-fib with RVR, pacemaker, RUDY, anxiety and depression admitted to [facility] IPR on 06/06/2019 with debility secondary to right MCA with right M1 occlusion s/p post thrombectomy, for > 3 hours of therapy daily with a goal of returning home at or near her prior level of independence. She presented to [facility] ER on 05/23/2019 due to patient was found laying on the ground in her garage with left-sided deficits. NIH was 20. CT of brain suggestive of thrombus in the right MCA and an early infarct in the right MCA territory. CTA head and neck with contrast impression right MCA occlusion. No TPA and patient was transferred to [facility]. On 05/23/19, neurosurgeon Dr. Doll formed the right MCA thrombectomy, due to right [place] occlusion. Postprocedural right ICA arteriogram demonstrated TICI?2b revascularization. CT of head without contrast on 06/04/2019 right MCA territory infarct with decrease edema noted in resolution of previously noted mass-effect of the right lateral ventricle and resolution of previously noted midline shift. Scattered hemorrhage within the infarct is less well. No new hemorrhage is identified.. Unable to obtain MRI due to pacemaker. TTE done which showed ejection fraction 65 to 70% and RVSP 41-45 mmHg. LDL 116, HgbA1c 6.5%. Prior to hospitalization patient was on Xarelto 15 mg daily for A. fib, was discontinued by [facility]. Plan - PT for gait stability - OT for ADLs - ST - PEG placement 06/13/19 - Right MCA infarct post thrombectomy on statin, asa, antihypertensives. Repeat CT head 06/10/2019 shows stable right MCA stroke with no new hemorrhage. Eliquis 5 mg p.o. twice daily started from 06/14/2019 post PEG placement, stroke initially occurred on 05/23/2019. Aspirin stopped once Eliquis was started, as per patient she was not on aspirin at home at baseline. - HTN on Losartan, HCTZ, amlodipine and Coreg. Goal blood pressure less than 130/80, avoid hypotension. Started on amlodipine from 07/11/2019. Tolerating medication well. - A-fib- on flecainide xeralto discontinued by [facility]. Here started on Eliquis 5 mg p.o. twice daily from 06/14/2019 after PEG placed on 06/13/19, stroke initially occurred on 05/23/2019. - DM- metformin on hold, accuchecks ac/hs, HgbA1c 6.4% -Left acromioclavicular arthritis?pain management consult, steroid injections per pain management, will defer further medical evaluation and management to pain management. Orthopedic consult as outpatient as orthopedics will not be seeing patients in the rehab.. - S/P PEG- on jevity and sterile water flushes - HLD on lipitor LDL 116 - RUDY stable 06/15/19 H/H 10.3/31.7 - Anxiety/depression on cymbalta - Insomnia/visual hallucinations-on Seroquel - GI/DVT prophylaxis pepcid/Eliquis, knee high nataly hose - Further medical management per hospitalist-consult - Analgesics as needed - Bowel protocol - F/U neurosurgeon Dr. Harrison, PCP, neurology, cardiology, orthopedics and pain management
[2019-07-26 14:05] VITALS: BMI 23.8
[2019-07-26 15:30] VITALS: BP 130/90; PULSE 64
[2019-07-26] MEDS: QUEtiapine 25 MG Tablet 37.5 MG GT (19:53)
[2019-07-26] MEDS: Atorvastatin Calcium 40 MG Tablet GT (19:55)
[2019-07-26] MEDS: Latanoprost 0.005% 1 Bottle 1 DRP EACH EYE (19:55)
[2019-07-26 21:02] VITALS: BP 136/88; PULSE 63; RESP 16; TEMP 36.8; O2SAT 94
[2019-07-26 21:10] VITALS: BMI 23.8
[2019-07-27] MEDS: Acetaminophen 650 MG/20 ML UDC 1000 MG GT ×3 (05:13→21:27)
[2019-07-27] MEDS: Jevity 1.5. 1,000 ML Bottle 240 ML GT ×5 (05:13→21:33)
[2019-07-27 07:59] VITALS: BP 116/70; PULSE 64; RESP 14; TEMP 37; O2SAT 96
[2019-07-27] MEDS: amLODIPine 10 MG Tablet PO (10:11)
[2019-07-27] MEDS: APIXABAN 5 MG TABLET GT ×2 (10:11→21:28)
[2019-07-27] MEDS: Flecainide 100 MG Tablet GT ×2 (10:11→21:28)
[2019-07-27] MEDS: hydroCHLOROthiazide 25 MG Tablet GT (10:12)
[2019-07-27] MEDS: Carvedilol 12.5 MG Tablet GT ×2 (10:12→21:28)
[2019-07-27] MEDS: Losartan Potassium 100 MG Tablet GT (10:12)
[2019-07-27] MEDS: DULoxetine Hcl 60 MG Capsule PO (10:13)
[2019-07-27] MEDS: Famotidine 20 MG Tablet GT (10:14)
[2019-07-27] MEDS: Menthol/Lanolin/Calamine/Znox 113 GM Tube 1 APPLIC TOPICAL ×2 (10:27→21:33)
[2019-07-27 11:14] VITALS: BMI 23.8
[2019-07-27 14:25] VITALS: BP 126/72; PULSE 66
[2019-07-27 18:32] VITALS: BP 128/68; PULSE 61; RESP 14; TEMP 36.8; O2SAT 94
[2019-07-27] MEDS: Atorvastatin Calcium 40 MG Tablet GT (21:28)
[2019-07-27] MEDS: QUEtiapine 25 MG Tablet 37.5 MG GT (21:29)
[2019-07-27] MEDS: Latanoprost 0.005% 1 Bottle 1 DRP EACH EYE (21:34)
[2019-07-27 23:24] VITALS: BMI 23.8
[2019-07-28] MEDS: Jevity 1.5. 1,000 ML Bottle 240 ML GT ×5 (06:38→19:37)
[2019-07-28] MEDS: Acetaminophen 650 MG/20 ML UDC 1000 MG GT ×3 (06:38→19:34)
--- NOTE | 2019-07-28 07:19 | PN_ITS ---
Subjective: Patient was seen and examined. No new complains. No acute events Objective: Physical exam: General: Alert, Oriented x3, Cooperative, No apparent distress HEENT: Atraumatic, PERRLA, EOMI, Normocephalic Oral: Moist Mucosa Neck: Supple Lungs: Clear to auscultation, Normal air movement Cardiovascular: Regular rate, Regular Rhythm, Normal S1, Normal S2, No murmurs Abdomen: Bowel Sounds Present, Soft, Non Tender, Non-Distended, No Hepato- splenomegaly Extremities: No edema Skin: No rashes, No breakdown Musculoskeletal: No Tenderness to Palpation of Joints or Extremities Neurological: - - Left facial droop, power in LUE 2/5, power in LLE 4/5, power in RUE/RLE is 5/5. Psych/Mental Status: Normal Affect, Appropriate Vitals/I&O's: Vital Signs Temp Pulse Resp BP Pulse Ox 98.2 F 61 14 128/68 H 94 07/27/19 18:32 07/27/19 18:32 07/27/19 18:32 07/27/19 18:32 07/27/19 18:32 Oxygen Delivery Method Room Air Weight: 65.4 kg Body Mass Index (BMI) 23.8 Finger Stick Blood Glucose 143 Intake and Output for Last 24 Hours 07/26/19 07/27/19 07/28/19 23:59 23:59 23:59 Intake Total 3120 / 3120 1950 / 1950 750 / 750 Output Total 1200 / 1200 Balance 1920 / 1920 1950 / 1950 750 / 750 Current Medications Acetaminophen (Tylenol Liquid) 1,000 mg GT TID [facility] Last Admin: 07/28/19 06:38 Dose: 1,000 mg Documented by: Amlodipine Besylate (Norvasc) 10 mg PO DAILY [facility] Last Admin: 07/27/19 10:11 Dose: 10 mg Documented by: Apixaban (Eliquis) 5 mg GT BID [facility] Last Admin: 07/27/19 21:28 Dose: 5 mg Documented by: Atorvastatin Calcium (Lipitor) 40 mg GT QHS [facility] Last Admin: 07/27/19 21:28 Dose: 40 mg Documented by: Bisacodyl (Dulcolax) 10 mg RECTAL .PRN X 1 PRN PRN Reason: Constipation Calamine/Phenol (Calmoseptine Ointment) 1 applic TOPICAL BID [facility]; Protocol Last Admin: 07/27/19 21:33 Dose: 1 applicatio Documented by: Carvedilol (Coreg) 12.5 mg GT BID [facility] Last Admin: 07/27/19 21:28 Dose: 12.5 mg Documented by: Duloxetine HCl (Cymbalta) 60 mg PO DAILY [facility] Last Admin: 07/27/19 10:13 Dose: 60 mg Documented by: Enteral Nutritional Formula (Jevity 1.5) 240 ml GT 5X/DAY [facility] Last Admin: 07/28/19 06:38 Dose: 240 ml Documented by: Famotidine (Pepcid) 20 mg GT DAILY [facility] Last Admin: 07/27/19 10:14 Dose: 20 mg Documented by: Flecainide Acetate (Tambocor) 100 mg GT BID [facility] Last Admin: 07/27/19 21:28 Dose: 100 mg Documented by: Hydrochlorothiazide (Hctz) 25 mg GT DAILY [facility] Last Admin: 07/27/19 10:12 Dose: 25 mg Documented by: Lactobacillus Acidophilus (Acidophilus) 1 tablet GT BID [facility] Last Admin: 07/27/19 21:28 Dose: 1 tablet Documented by: Latanoprost (Xalatan Opthalmic) 1 drop EACH EYE DAILY@2199 [facility] Last Admin: 07/27/19 21:34 Dose: 1 drop Documented by: Loperamide HCl (Imodium) 2 mg PO Q4H PRN PRN PRN Reason: DIARRHEA/LOOSE STOOLS Last Admin: 07/26/19 10:03 Dose: 2 mg Documented by: Losartan Potassium (Cozaar) 100 mg GT DAILY [facility] Last Admin: 07/27/19 10:12 Dose: 100 mg Documented by: Magnesium Hydroxide (Milk Of Magnesia) 30 ml PO .PRN X 1 PRN PRN Reason: Constipation Last Admin: 07/08/19 17:32 Dose: 30 ml Documented by: Multi-Ingredient Cream (Eucerin) 1 applic TOPICAL TID PRN PRN; Protocol PRN Reason: Dry Skin Potassium Chloride (Potassium Chl Soln) 20 meq GT DAILY [facility] Last Admin: 07/27/19 10:11 Dose: 20 meq Documented by: Quetiapine Fumarate (Seroquel) 37.5 mg GT DAILY@1999 [facility] Last Admin: 07/27/19 21:29 Dose: 37.5 mg Documented by: Sodium Chloride () 5 - 15 ml IV UD PRN PRN Reason: SALINE FLUSH Last Admin: 06/19/19 06:13 Dose: 10 ml Documented by: Medical Necessity - Tobacco Use Smoking Status: Never smoker Tobacco Use: Non-smoker Assessment/Plan All Active Problems (Last Reviewed 07/09/19 @ 07:57 by Kathi Shields) CVA (cerebral vascular accident) (Acute 05/2019) 79-year-old female with past medical history of chronic atrial fibrillation, hypertension, type II DM, hyperlipidemia, status post pacemaker admitted after an acute Right MCA stroke. She has had a long protracted in the acute rehab unit with aspiration pneumonia status post PEG tube placement. 1. Debility secondary to acute right MCA stroke status post right ICA thrombectomy On aspirin, statin, beta-rachna 2. s/p PEG tube placement, on Jevity 3. Hypertension, controlled, continue on amlodipine, carvedilol, hydrochlorothiazide, losartan Continue to monitor vitals closely 4. Paroxysmal atrial fibrillation, on flecainide and Eliquis 5. Type II DM, diet controlled, blood sugars are controlled 6. DVT PPx- Lovenox SC Code Visit Inpatient E&M: 27180 Subs Hosp L2
[2019-07-28 07:31] VITALS: BP 123/72; PULSE 61; RESP 16; TEMP 36.4; O2SAT 95
[2019-07-28] MEDS: Carvedilol 12.5 MG Tablet GT ×2 (10:29→19:36)
[2019-07-28] MEDS: Menthol/Lanolin/Calamine/Znox 113 GM Tube 1 APPLIC TOPICAL ×2 (10:29→19:36)
[2019-07-28] MEDS: APIXABAN 5 MG TABLET GT ×2 (10:29→19:35)
[2019-07-28] MEDS: Losartan Potassium 100 MG Tablet GT (10:29)
[2019-07-28] MEDS: hydroCHLOROthiazide 25 MG Tablet GT (10:29)
[2019-07-28] MEDS: DULoxetine Hcl 60 MG Capsule PO (10:29)
[2019-07-28] MEDS: Famotidine 20 MG Tablet GT (10:30)
[2019-07-28] MEDS: Flecainide 100 MG Tablet GT ×2 (10:30→19:33)
[2019-07-28] MEDS: amLODIPine 10 MG Tablet PO (10:30)
[2019-07-28 12:30] VITALS: BMI 23.8
[2019-07-28 19:30] VITALS: BP 130/75; PULSE 67; RESP 18; TEMP 36.4; O2SAT 96; BMI 23.8
[2019-07-28] MEDS: Latanoprost 0.005% 1 Bottle 1 DRP EACH EYE (19:34)
[2019-07-28] MEDS: Atorvastatin Calcium 40 MG Tablet GT (19:35)
[2019-07-28] MEDS: QUEtiapine 25 MG Tablet 37.5 MG GT (19:36)
[2019-07-29] MEDS: Acetaminophen 650 MG/20 ML UDC 1000 MG GT ×3 (06:13→20:16)
[2019-07-29] MEDS: Jevity 1.5. 1,000 ML Bottle 240 ML GT ×5 (06:14→20:17)
[2019-07-29 07:34] VITALS: BP 129/70; PULSE 62; RESP 16; TEMP 36.7; O2SAT 96
[2019-07-29] MEDS: Menthol/Lanolin/Calamine/Znox 113 GM Tube 1 APPLIC TOPICAL ×2 (09:43→20:22)
[2019-07-29] MEDS: Carvedilol 12.5 MG Tablet GT ×2 (09:44→20:17)
[2019-07-29] MEDS: Losartan Potassium 100 MG Tablet GT (09:44)
[2019-07-29] MEDS: APIXABAN 5 MG TABLET GT ×2 (09:45→20:16)
[2019-07-29] MEDS: hydroCHLOROthiazide 25 MG Tablet GT (09:46)
[2019-07-29] MEDS: Flecainide 100 MG Tablet GT ×2 (09:46→20:17)
[2019-07-29] MEDS: Famotidine 20 MG Tablet GT (09:46)
[2019-07-29] MEDS: amLODIPine 10 MG Tablet PO (09:46)
--- NOTE | 2019-07-29 10:06 | CASEMGMT ---
Social Work IDT met with patient, daughter and son for Team Meeting. Discussed patient's progress in therapy. Pt is walking wall rail of 20 ft x4 with rest breaks mod to max assist x1 and trailed hemiwalker and FWW with max assist x2 and w/c follow. Pt is min to mod assist with transfers, standing on own about 10 secs, max x2 with toileting d/t balance, max UE ADLs, total LE ADLs. ST is trailing foods, but still having residue and weak muscles to swallow. Using max cues with left visual neglect. Improving on orientation questions, and behaviors with nursing at night, but still some hallucinations and confusion. Insurance update 07/30 and continued stay is not guaranteed. Pt's plan is to discharge to SNF when insurance cuts for further therapy/LTC. Will continue to follow. Shannan Mcclellan, NURSE [employer] REPRESENTATIVE
[2019-07-29] MEDS: DULoxetine Hcl 60 MG Capsule PO (10:13)
--- NOTE | 2019-07-29 12:25 | PCM.PN.NEU ---
Subjective: No issues overnight. Case discussed with the nursing staff. Staffed in the team meeting today. All questions were answered. Further therapy details per PT/OT/ST notes. - Physical Exam Vitals/I&O's: Vital Signs Temp Pulse Resp BP Pulse Ox 98.1 F 62 16 129/70 H 96 07/29/19 07:34 07/29/19 07:34 07/29/19 07:34 07/29/19 07:34 07/29/19 07:34 Oxygen Delivery Method Room Air Weight: 65.4 kg Body Mass Index (BMI) 23.8 Finger Stick Blood Glucose 143 Intake and Output for Last 24 Hours 07/27/19 07/28/19 07/29/19 23:59 23:59 23:59 Intake Total 1949 2760 / 2760 390 / 390 Output Total 100 / 100 Balance 1949 2660 / 2660 390 / 390 General: Alert HEENT: Normocephalic Neck: Supple Lungs: Normal air movement Cardiovascular: Normal S1, Normal S2 Abdomen: Bowel Sounds Present Extremities: No cyanosis Neurological: - - conscious, alert, CN II to XII grossly intact except 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, power 5/5 right upper and lower extremities, 3/5 Left UE, 3/5 left LE, plantars right flexor, left mute, no pronator drift, left sensory loss with left sensory extinction, no cerebellar signs, gait deferred, reflexes + B/L B/S/T/K/A, dysarthria +,No NR, fundus not visualized Psych/Mental Status: Normal Affect Current Medications Acetaminophen (Tylenol Liquid) 1,000 mg GT TID [facility] Last Admin: 07/29/19 06:13 Dose: 1,000 mg Documented by: Amlodipine Besylate (Norvasc) 10 mg PO DAILY [facility] Last Admin: 07/29/19 09:46 Dose: 10 mg Documented by: Apixaban (Eliquis) 5 mg GT BID [facility] Last Admin: 07/29/19 09:45 Dose: 5 mg Documented by: Atorvastatin Calcium (Lipitor) 40 mg GT QHS [facility] Last Admin: 07/28/19 19:35 Dose: 40 mg Documented by: Bisacodyl (Dulcolax) 10 mg RECTAL .PRN X 1 PRN PRN Reason: Constipation Calamine/Phenol (Calmoseptine Ointment) 1 applic TOPICAL BID [facility]; Protocol Last Admin: 07/29/19 09:43 Dose: 1 applicatio Documented by: Carvedilol (Coreg) 12.5 mg GT BID [facility] Last Admin: 07/29/19 09:44 Dose: 12.5 mg Documented by: Duloxetine HCl (Cymbalta) 60 mg PO DAILY [facility] Last Admin: 07/29/19 10:13 Dose: 60 mg Documented by: Enteral Nutritional Formula (Jevity 1.5) 240 ml GT 5X/DAY [facility] Last Admin: 07/29/19 09:46 Dose: 240 ml Documented by: Famotidine (Pepcid) 20 mg GT DAILY [facility] Last Admin: 07/29/19 09:46 Dose: 20 mg Documented by: Flecainide Acetate (Tambocor) 100 mg GT BID [facility] Last Admin: 07/29/19 09:46 Dose: 100 mg Documented by: Hydrochlorothiazide (Hctz) 25 mg GT DAILY [facility] Last Admin: 07/29/19 09:46 Dose: 25 mg Documented by: Lactobacillus Acidophilus (Acidophilus) 1 tablet GT BID [facility] Last Admin: 07/29/19 09:43 Dose: 1 tablet Documented by: Latanoprost (Xalatan Opthalmic) 1 drop EACH EYE DAILY@2199 [facility] Last Admin: 07/28/19 19:34 Dose: 1 drop Documented by: Loperamide HCl (Imodium) 2 mg PO Q4H PRN PRN PRN Reason: DIARRHEA/LOOSE STOOLS Last Admin: 07/26/19 10:03 Dose: 2 mg Documented by: Losartan Potassium (Cozaar) 100 mg GT DAILY [facility] Last Admin: 07/29/19 09:44 Dose: 100 mg Documented by: Magnesium Hydroxide (Milk Of Magnesia) 30 ml PO .PRN X 1 PRN PRN Reason: Constipation Last Admin: 07/08/19 17:32 Dose: 30 ml Documented by: Multi-Ingredient Cream (Eucerin) 1 applic TOPICAL TID PRN PRN; Protocol PRN Reason: Dry Skin Potassium Chloride (Potassium Chl Soln) 20 meq GT DAILY [facility] Last Admin: 07/29/19 09:46 Dose: 20 meq Documented by: Quetiapine Fumarate (Seroquel) 37.5 mg GT DAILY@1999 [facility] Last Admin: 07/28/19 19:36 Dose: 37.5 mg Documented by: Sodium Chloride () 5 - 15 ml IV UD PRN PRN Reason: SALINE FLUSH Last Admin: 06/19/19 06:13 Dose: 10 ml Documented by: Medical Necessity - Tobacco Use Smoking Status: Never smoker Tobacco Use: Non-smoker Assessment/Plan All Active Problems (Last Reviewed 07/09/19 @ 07:57 by Kathi Shields) CVA (cerebral vascular accident) (Acute 05/2019) The patient is a 79 year old F with PMH of HTN, HLD, CAD, DM type II, A-fib with RVR, pacemaker, RUDY, anxiety and depression admitted to [facility] on 06/06/2019 with debility secondary to right MCA with right M1 occlusion s/p post thrombectomy, for > 3 hours of therapy daily with a goal of returning home at or near her prior level of independence. She presented to [facility] ER on 05/23/2019 due to patient was found laying on the ground in her garage with left-sided deficits. NIH was 20. CT of brain suggestive of thrombus in the right MCA and an early infarct in the right MCA territory. CTA head and neck with contrast impression right MCA occlusion. No TPA and patient was transferred to [facility]. On 05/23/19, neurosurgeon Dr. Doll formed the right MCA thrombectomy, due to right LA occlusion. Postprocedural right ICA arteriogram demonstrated TICI?2b revascularization. CT of head without contrast on 06/04/2019 right MCA territory infarct with decrease edema noted in resolution of previously noted mass-effect of the right lateral ventricle and resolution of previously noted midline shift. Scattered hemorrhage within the infarct is less well. No new hemorrhage is identified.. Unable to obtain MRI due to pacemaker. TTE done which showed ejection fraction 65 to 70% and RVSP 41-45 mmHg. LDL 116, HgbA1c 6.5%. Prior to hospitalization patient was on Xarelto 15 mg daily for A. fib, was discontinued by [facility]. Plan - PT for gait stability - OT for ADLs - ST - PEG placement 06/13/19 - Right MCA infarct post thrombectomy on statin, asa, antihypertensives. Repeat CT head 06/10/2019 shows stable right MCA stroke with no new hemorrhage. Eliquis 5 mg p.o. twice daily started from 06/14/2019 post PEG placement, stroke initially occurred on 05/23/2019. Aspirin stopped once Eliquis was started, as per patient she was not on aspirin at home at baseline. - HTN on Losartan, HCTZ, amlodipine and Coreg. Goal blood pressure less than 130/80, avoid hypotension. Started on amlodipine from 07/11/2019. Tolerating medication well. - A-fib- on flecainide xeralto discontinued by [facility]. Here started on Eliquis 5 mg p.o. twice daily from 06/14/2019 after PEG placed on 06/13/19, stroke initially occurred on 05/23/2019. - DM- metformin on hold, accuchecks ac/hs, HgbA1c 6.4% -Left acromioclavicular arthritis?pain management consult, steroid injections per pain management, will defer further medical evaluation and management to pain management. Orthopedic consult as outpatient as orthopedics will not be seeing patients in the rehab.. - S/P PEG- on jevity and sterile water flushes - HLD on lipitor LDL 116 - RUDY stable 06/15/19 H/H 10.3/31.7 - Anxiety/depression on cymbalta - Insomnia/visual hallucinations-on Seroquel - GI/DVT prophylaxis pepcid/Eliquis, knee high nataly hose - Further medical management per hospitalist-consult - Analgesics as needed - Bowel protocol - F/U neurosurgeon Dr. Harrison, PCP, neurology, cardiology, orthopedics and pain management
--- NOTE | 2019-07-29 12:45 | PCM.PROGNOTE ---
Subjective: Hospitalist note: Afebrile Vital signs are stable. Blood pressures are well controlled. She is maintaining appropriate oxygen saturation on room air. Tolerating tube feed with no residuals. Last bowel movement was 07/28/2019 She is not trying to climb out of bed as often since the increase in the Seroquel to 37.5 mg p.o. nightly. Continues to have hallucinations but, does not seem bothered by this. Seems a little better able to focus. No N/V/ABD pain. Denies SOB or CP. No complaints. Last lab was on 07/14 and she is on TF. Serum bicarb was increased and the BUN/CREAT ratio was 34.7. Echocardiogram in August 2018 showed normal left ventricular systolic function with ejection fraction estimated at 55%. Pulmonary artery pressure was 60 which is consistent with moderate pulmonary hypertension. Unclear to me what the etiology is? - Physical Exam Vitals/I&O's: Vital Signs Temp Pulse Resp BP Pulse Ox 98.1 F 62 16 129/70 H 96 07/29/19 07:34 07/29/19 07:34 07/29/19 07:34 07/29/19 07:34 07/29/19 07:34 Oxygen Delivery Method Room Air Weight: 144 lb 2.917 oz Body Mass Index (BMI) 23.8 Finger Stick Blood Glucose 143 Intake and Output for Last 24 Hours 07/27/19 07/28/19 07/29/19 23:59 23:59 23:59 Intake Total 1949 2760 / 2760 390 / 390 Output Total 100 / 100 Balance 1949 2660 / 2660 390 / 390 General: Alert, Cooperative, No apparent distress HEENT: Atraumatic, - - Pupils are equal, round and reactive to light Oral: Dry Mucosa Lungs: Clear to auscultation Cardiovascular: Regular rate, Regular Rhythm, Normal S1, Normal S2, No murmurs, No Gallop Abdomen: Bowel Sounds Present, Soft, Non Tender, Non-Distended, - - PEG site has no erythema or purulent discharge around it. Extremities: No cyanosis, No edema Skin: No rashes Neurological: Facial Droop, - - Left facial droop, strength in the right upper extremity and right lower extremity is 5/5. Strength on the left is diminished in the left upper extremity is estimated to be 2-3/5 and the LLE 3/5. she has scissoring with ambulation and is crossing the LLE over the right with ambulation but, this is less pronounced than last week. Psych/Mental Status: Normal Affect, Appropriate Current Medications Acetaminophen (Tylenol Liquid) 1,000 mg GT TID [facility] Last Admin: 07/29/19 06:13 Dose: 1,000 mg Documented by: Amlodipine Besylate (Norvasc) 10 mg PO DAILY [facility] Last Admin: 07/29/19 09:46 Dose: 10 mg Documented by: Apixaban (Eliquis) 5 mg GT BID [facility] Last Admin: 07/29/19 09:45 Dose: 5 mg Documented by: Atorvastatin Calcium (Lipitor) 40 mg GT QHS [facility] Last Admin: 07/28/19 19:35 Dose: 40 mg Documented by: Bisacodyl (Dulcolax) 10 mg RECTAL .PRN X 1 PRN PRN Reason: Constipation Calamine/Phenol (Calmoseptine Ointment) 1 applic TOPICAL BID [facility]; Protocol Last Admin: 07/29/19 09:43 Dose: 1 applicatio Documented by: Carvedilol (Coreg) 12.5 mg GT BID [facility] Last Admin: 07/29/19 09:44 Dose: 12.5 mg Documented by: Duloxetine HCl (Cymbalta) 60 mg PO DAILY [facility] Last Admin: 07/29/19 10:13 Dose: 60 mg Documented by: Enteral Nutritional Formula (Jevity 1.5) 240 ml GT 5X/DAY [facility] Last Admin: 07/29/19 09:46 Dose: 240 ml Documented by: Famotidine (Pepcid) 20 mg GT DAILY [facility] Last Admin: 07/29/19 09:46 Dose: 20 mg Documented by: Flecainide Acetate (Tambocor) 100 mg GT BID [facility] Last Admin: 07/29/19 09:46 Dose: 100 mg Documented by: Hydrochlorothiazide (Hctz) 25 mg GT DAILY [facility] Last Admin: 07/29/19 09:46 Dose: 25 mg Documented by: Lactobacillus Acidophilus (Acidophilus) 1 tablet GT BID [facility] Last Admin: 07/29/19 09:43 Dose: 1 tablet Documented by: Latanoprost (Xalatan Opthalmic) 1 drop EACH EYE DAILY@2200 [facility] Last Admin: 07/28/19 19:34 Dose: 1 drop Documented by: Loperamide HCl (Imodium) 2 mg PO Q4H PRN PRN PRN Reason: DIARRHEA/LOOSE STOOLS Last Admin: 07/26/19 10:03 Dose: 2 mg Documented by: Losartan Potassium (Cozaar) 100 mg GT DAILY [facility] Last Admin: 07/29/19 09:44 Dose: 100 mg Documented by: Magnesium Hydroxide (Milk Of Magnesia) 30 ml PO .PRN X 1 PRN PRN Reason: Constipation Last Admin: 07/08/19 17:32 Dose: 30 ml Documented by: Multi-Ingredient Cream (Eucerin) 1 applic TOPICAL TID PRN PRN; Protocol PRN Reason: Dry Skin Potassium Chloride (Potassium Chl Soln) 20 meq GT DAILY [facility] Last Admin: 07/29/19 09:46 Dose: 20 meq Documented by: Quetiapine Fumarate (Seroquel) 37.5 mg GT DAILY@1999 [facility] Last Admin: 07/28/19 19:36 Dose: 37.5 mg Documented by: Sodium Chloride () 5 - 15 ml IV UD PRN PRN Reason: SALINE FLUSH Last Admin: 06/19/19 06:13 Dose: 10 ml Documented by: Medical Necessity - Tobacco Use Smoking Status: Never smoker Tobacco Use: Non-smoker Assessment/Plan All Active Problems (Last Reviewed 07/09/19 @ 07:57 by Kathi Shields) CVA (cerebral vascular accident) (Acute 05/2019) Impressions 1. 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 Patient is status thrombectomy on 05/23/[address] [facility] [address] Doll. 2. AF - on Flecanide and Coreg. 3. chronic anticoagulation with Eliquis 4. Last ECHO at [facility] with an estimated PA systolic of 60 but, recent TAMERA at [facility] states the PA pressure was 40-45. this is consistent with mild Pulmonary HTN. the EF was 65-70% 5. Dysphagia due to CVA 6. DM II - blood sugars are controlled. HGBA1C is 6.4%. 7. HLD - on atorvastatin 40 mg daily. The last LDL recorded was 116 which is too high. Will need to repeat a liver panel and lipid panel 8. Njthrbvepjiz-[id number]. ? whether she needs HCTZ? The BUN/CREAT ratio is quite high. Will check orthostatic VS's and if she is orthostatic will DC the HCTZ. In addition to hydrochlorothiazide she is also receiving losartan, amlodipine and Coreg for blood pressure control. 9. CAD 10. S/P PM 11. Anxiety/depression 12. Visual hallucinations.......seem to be improving with the increase in the Seroquel. Will continue at the current dose 13. S/P PEG 06/13/2019. 14. mild - moderate Pulmonary HTN - etiology? 15. Hx of iron deficiency anemia - has seen hematology in the past. HGB has been stable continue current medications for now but if the orthostatics are positive will discontinue the HCTZ Continue PT/OT/ST Continue Pepcid for GI prophylaxis and Eliquis for AF and for DVT prophylaxis Bowel protocol Recheck CBC, CMP, lipid panel, Mag and phos in the AM She will F/U with Dr. Harrison at [facility] going forward and also with cardiology, PCP and pain management Code Visit Inpatient E&M: 57558 Subs Hosp L2
[2019-07-29 14:37] VITALS: BMI 23.8
[2019-07-29 17:18] VITALS: BP 129/86; BP 134/74; BP 136/86; PULSE 62; PULSE 67; PULSE 68
[2019-07-29 19:30] VITALS: PULSE 60; RESP 16; O2SAT 95; BMI 23.8
[2019-07-29] MEDS: QUEtiapine 25 MG Tablet 37.5 MG GT (20:16)
[2019-07-29] MEDS: Atorvastatin Calcium 40 MG Tablet GT (20:17)
[2019-07-29] MEDS: Capsaicin 0.025% 1 APPLIC Tube TOPICAL (20:18)
[2019-07-29] MEDS: Lidocaine/Prilocaine HCl 5 GM Tube 1 GM TOPICAL (20:19)
[2019-07-29] MEDS: Latanoprost 0.005% 1 Bottle 1 DRP EACH EYE (20:22)
[2019-07-29 20:30] VITALS: BP 129/70; PULSE 60; RESP 16; TEMP 36.6; O2SAT 95
--- NOTE | 2019-07-30 03:23 | NURSING ---
REVIEWED AND AGREE WITH [employer] DOCUMENTATION AND CHARTING
[2019-07-30] MEDS: Acetaminophen 650 MG/20 ML UDC 1000 MG GT ×3 (05:23→20:06)
[2019-07-30] MEDS: Jevity 1.5. 1,000 ML Bottle 240 ML GT ×5 (05:25→20:11)
[2019-07-30 06:00] LABS: Hemoglobin 11.4 g/dL (12.0-15.0); Mean Corp Hgb Conc 31.7 g/dL (32-36); Mean Corpuscular Hgb 29.5 pg (27.0-32.0); Mean Platelet Vol. 10.8 fl (6.2-12.0); Platelet Count 313 K/mm3 (150-450); RBC Distribution Width CV 14.5 % (11.6-14.6); RBC Distribution Width SD 49.3 fl (35.1-43.9); Red Blood Count 3.87 M/mm3 (4.2-5.4); White Blood Count 7.2 K/mm3 (4.4-11.0)
[2019-07-30 06:48] LABS: ALB/GLOB Ratio 0.9 RATIO (0.9-2.4); AST(SGOT) 16 U/L (15-37); Alanine Aminotransfer ALT/SGPT 24 U/L (13-56); Albumin, Serum 3.2 g/dL (3.2-5.0); Alkaline Phosphatase 100 U/L (45-117); Anion Gap 7 (5-15); BUN 32 mg/dL (7-18); BUN/Creat Ratio 36.2 RATIO (10-20); Calcium,Total 9.8 mg/dL (8.5-10.1); Chloride 103 mmol/L (98-107); Cholesterol 164 mg/dL (200); Creatinine, Serum 0.88 mg/dL (0.55-1.02); EST Glomerular Filtration Rate 66 mL/min (>60); Est Glom Filt Rate - Afr Amer 80 mL/min (>60); Estimated Creatinine Clearance 51.24 ml/min; Globulin 3.5 g/dL (2.2-4.2); Glucose 112 mg/dL (74-106); High Density Lipoprotein 57 mg/dL; Magnesium 2.2 mg/dL (1.6-2.6); Phosphorus 3.8 mg/dL (2.5-4.9); Potassium 3.8 mmol/L (3.5-5.1); Protein, Total 6.7 g/dL (6.4-8.2); Sodium Level 142 mmol/L (136-145); Triglycerides 120 mg/dL; Very Low Density Lipoprotein 24 mg/dL (5-40)
[2019-07-30 07:27] VITALS: BP 116/61; PULSE 62; RESP 16; TEMP 36.6; O2SAT 94
[2019-07-30] MEDS: Menthol/Lanolin/Calamine/Znox 113 GM Tube 1 APPLIC TOPICAL ×2 (10:04→20:12)
[2019-07-30] MEDS: Carvedilol 12.5 MG Tablet GT ×2 (10:04→20:12)
[2019-07-30] MEDS: DULoxetine Hcl 60 MG Capsule PO (10:05)
[2019-07-30] MEDS: Lidocaine/Prilocaine HCl 5 GM Tube 1 GM TOPICAL ×2 (10:05→20:07)
[2019-07-30] MEDS: Losartan Potassium 100 MG Tablet GT (10:05)
[2019-07-30] MEDS: APIXABAN 5 MG TABLET GT ×2 (10:05→20:12)
[2019-07-30] MEDS: hydroCHLOROthiazide 25 MG Tablet GT (10:06)
[2019-07-30] MEDS: amLODIPine 10 MG Tablet PO (10:07)
[2019-07-30] MEDS: Famotidine 20 MG Tablet GT (10:07)
[2019-07-30] MEDS: Flecainide 100 MG Tablet GT ×2 (10:08→20:12)
--- NOTE | 2019-07-30 10:09 | PCM.PN.NEU ---
Subjective: No issues overnight. Care discussed with the nursing staff. - Physical Exam Vitals/I&O's: Vital Signs Temp Pulse Resp BP Pulse Ox 97.8 F 62 16 116/61 94 07/30/19 07:27 07/30/19 07:27 07/30/19 07:27 07/30/19 07:27 07/30/19 07:27 Oxygen Delivery Method Room Air Weight: 65.3 kg Body Mass Index (BMI) 23.8 Finger Stick Blood Glucose 143 Orthostatic Vital Signs Start: 07/29/19 14:47 Freq: q24h Status: Active Protocol: Activity Type Activity Date Activity User E-Sign Co-Sign Detail Recorded Client Recorded Date Recorded By Document 07/29/19 17:18 [id number] 07/29/19 17:24 07/29/19 17:18 Orthostatic Vitals Standing -Blood Pressure (90/60-120/80) 134/74 H -Extremity Use Right Arm -Pulse Rate (60-100) 62 Sitting -Blood Pressure (90/60-120/80) 136/86 H -Extremity Use Right Arm -Pulse Rate (60-100) 68 Lying -Blood Pressure (90/60-120/80) 129/86 H -Extremity Use Right Arm -Pulse Rate (60-100) 67 Intake and Output for Last 24 Hours 07/28/19 07/29/19 07/30/19 23:59 23:59 23:59 Intake Total 2760 / 2760 2400 / 2400 390 / 390 Output Total 100 / 100 900 / 900 300 / 300 Balance 2660 / 2660 1500 / 1500 90 / 90 General: Alert HEENT: Normocephalic Neck: Supple Lungs: Normal air movement Cardiovascular: Normal S1, Normal S2 Abdomen: Bowel Sounds Present Extremities: No cyanosis Neurological: - - conscious, alert, CN II to XII grossly intact except 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, power 5/5 right upper and lower extremities, 3/5 Left UE, 3/5 left LE, plantars right flexor, left mute, no pronator drift, left sensory loss with left sensory extinction, no cerebellar signs, gait deferred, reflexes + B/L B/S/T/K/A, dysarthria +,No NR, fundus not visualized Psych/Mental Status: Normal Affect Laboratory Results 07/30/19 05:25: WBC 7.2, RBC 3.87 L, Hgb 11.4 L, Hct 36.0 L, MCV 93.0, MCH 29.5, MCHC 31.7 L, RDW Std Deviation 49.3 H, RDW Coeff of Keyur 14.5, Plt Count 313, MPV 10.8 07/30/19 05:25: Sodium 142, Potassium 3.8, Chloride 103, Carbon Dioxide 32.0, Anion Gap 7, BUN 32 H, Creatinine 0.88, Estim Creat Clear Calc 51.24, Est GFR (MDRD) Af Amer 80, Est GFR (MDRD) Non-Af 66, BUN/Creatinine Ratio 36.2 H, Glucose 112 H, Calcium 9.8, Phosphorus 3.8, Magnesium 2.2, Total Bilirubin 0.30, AST 16, ALT 24, Alkaline Phosphatase 100, Total Protein 6.7, Albumin 3.2, Globulin 3.5, Albumin/Globulin Ratio 0.9, Triglycerides 120, Cholesterol 164, LDL Cholesterol 83, VLDL Cholesterol 24, HDL Cholesterol 57 Current Medications Acetaminophen (Tylenol Liquid) 1,000 mg GT TID [facility] Last Admin: 07/30/19 05:23 Dose: 1,000 mg Documented by: Amlodipine Besylate (Norvasc) 10 mg PO DAILY [facility] Last Admin: 07/29/19 09:46 Dose: 10 mg Documented by: Apixaban (Eliquis) 5 mg GT BID [facility] Last Admin: 07/29/19 20:16 Dose: 5 mg Documented by: Atorvastatin Calcium (Lipitor) 40 mg GT QHS [facility] Last Admin: 07/29/19 20:17 Dose: 40 mg Documented by: Bisacodyl (Dulcolax) 10 mg RECTAL .PRN X 1 PRN PRN Reason: Constipation Calamine/Phenol (Calmoseptine Ointment) 1 applic TOPICAL BID [facility]; Protocol Last Admin: 07/29/19 20:22 Dose: 1 applicatio Documented by: Capsaicin (Zostrix) 1 applic TOPICAL BID [facility]; Protocol Last Admin: 07/29/19 20:18 Dose: 1 applicatio Documented by: Carvedilol (Coreg) 12.5 mg GT BID [facility] Last Admin: 07/29/19 20:17 Dose: 12.5 mg Documented by: Duloxetine HCl (Cymbalta) 60 mg PO DAILY [facility] Last Admin: 07/29/19 10:13 Dose: 60 mg Documented by: Enteral Nutritional Formula (Jevity 1.5) 240 ml GT 5X/DAY [facility] Last Admin: 07/30/19 05:25 Dose: 240 ml Documented by: Famotidine (Pepcid) 20 mg GT DAILY [facility] Last Admin: 07/29/19 09:46 Dose: 20 mg Documented by: Flecainide Acetate (Tambocor) 100 mg GT BID [facility] Last Admin: 07/29/19 20:17 Dose: 100 mg Documented by: Hydrochlorothiazide (Hctz) 25 mg GT DAILY [facility] Last Admin: 07/29/19 09:46 Dose: 25 mg Documented by: Lactobacillus Acidophilus (Acidophilus) 1 tablet GT BID [facility] Last Admin: 07/29/19 20:17 Dose: 1 tablet Documented by: Latanoprost (Xalatan Opthalmic) 1 drop EACH EYE DAILY@2200 [facility] Last Admin: 07/29/19 20:22 Dose: 1 drop Documented by: Lidocaine/Prilocaine (Emla Cream W/Tegaderm) 1 gm TOPICAL BID [facility]; Protocol Last Admin: 07/29/19 20:19 Dose: 1 applicatio Documented by: Loperamide HCl (Imodium) 2 mg PO Q4H PRN PRN PRN Reason: DIARRHEA/LOOSE STOOLS Last Admin: 07/26/19 10:03 Dose: 2 mg Documented by: Losartan Potassium (Cozaar) 100 mg GT DAILY [facility] Last Admin: 07/29/19 09:44 Dose: 100 mg Documented by: Magnesium Hydroxide (Milk Of Magnesia) 30 ml PO .PRN X 1 PRN PRN Reason: Constipation Last Admin: 07/08/19 17:32 Dose: 30 ml Documented by: Multi-Ingredient Cream (Eucerin) 1 applic TOPICAL TID PRN PRN; Protocol PRN Reason: Dry Skin Potassium Chloride (Potassium Chl Soln) 20 meq GT DAILY [facility] Last Admin: 07/29/19 09:46 Dose: 20 meq Documented by: Quetiapine Fumarate (Seroquel) 37.5 mg GT DAILY@1999 [facility] Last Admin: 07/29/19 20:16 Dose: 37.5 mg Documented by: Sodium Chloride () 5 - 15 ml IV UD PRN PRN Reason: SALINE FLUSH Last Admin: 06/19/19 06:13 Dose: 10 ml Documented by: STROKE Vital Signs/Narrative: Vital Signs Temp Pulse Resp BP Pulse Ox 07/30/19 07:27 97.8 F 62 16 116/61 94 Medical Necessity - Tobacco Use Smoking Status: Never smoker Tobacco Use: Non-smoker Assessment/Plan All Active Problems (Last Reviewed 07/09/19 @ 07:57 by Kathi Shields) CVA (cerebral vascular accident) (Acute 05/2019) The patient is a 79 year old F with PMH of HTN, HLD, CAD, DM type II, A-fib with RVR, pacemaker, RUDY, anxiety and depression admitted to [facility] IPR on 06/06/2019 with debility secondary to right MCA with right M1 occlusion s/p post thrombectomy, for > 3 hours of therapy daily with a goal of returning home at or near her prior level of independence. She presented to [facility] ER on 05/23/2019 due to patient was found laying on the ground in her garage with left-sided deficits. NIH was 20. CT of brain suggestive of thrombus in the right MCA and an early infarct in the right MCA territory. CTA head and neck with contrast impression right MCA occlusion. No TPA and patient was transferred to [facility]. On 05/23/19, neurosurgeon Dr. Doll formed the right MCA thrombectomy, due to right IN occlusion. Postprocedural right ICA arteriogram demonstrated TICI?2b revascularization. CT of head without contrast on 06/04/2019 right MCA territory infarct with decrease edema noted in resolution of previously noted mass-effect of the right lateral ventricle and resolution of previously noted midline shift. Scattered hemorrhage within the infarct is less well. No new hemorrhage is identified.. Unable to obtain MRI due to pacemaker. TTE done which showed ejection fraction 65 to 70% and RVSP 41-45 mmHg. LDL 116, HgbA1c 6.5%. Prior to hospitalization patient was on Xarelto 15 mg daily for A. fib, was discontinued by [facility]. Plan - PT for gait stability - OT for ADLs - ST - PEG placement 06/13/19 - Right MCA infarct post thrombectomy on statin, asa, antihypertensives. Repeat CT head 06/10/2019 shows stable right MCA stroke with no new hemorrhage. Eliquis 5 mg p.o. twice daily started from 06/14/2019 post PEG placement, stroke initially occurred on 05/23/2019. Aspirin stopped once Eliquis was started, as per patient she was not on aspirin at home at baseline. - HTN on Losartan, HCTZ, amlodipine and Coreg. Goal blood pressure less than 130/80, avoid hypotension. Started on amlodipine from 07/11/2019. Tolerating medication well. - A-fib- on flecainide xeralto discontinued by [facility]. Here started on Eliquis 5 mg p.o. twice daily from 06/14/2019 after PEG placed on 06/13/19, stroke initially occurred on 05/23/2019. - DM- metformin on hold, accuchecks ac/hs, HgbA1c 6.4% -Left acromioclavicular arthritis?pain management consult, steroid injections per pain management, will defer further medical evaluation and management to pain management. Orthopedic consult as outpatient as orthopedics will not be seeing patients in the rehab.. - S/P PEG - HLD on lipitor LDL 116 - RUDY stable 06/15/19 H/H 10.3/31.7 - Anxiety/depression on cymbalta - Insomnia/visual hallucinations-on Seroquel - GI/DVT prophylaxis pepcid/Eliquis, knee high nataly hose - Further medical management per hospitalist-consult - Analgesics as needed - Bowel protocol - F/U neurosurgeon Dr. Harrison, PCP, neurology, cardiology, orthopedics and pain management
[2019-07-30] MEDS: Capsaicin 0.025% 1 APPLIC Tube TOPICAL ×2 (10:13→20:15)
[2019-07-30 11:42] VITALS: BMI 23.8
[2019-07-30 14:05] VITALS: BP 128/72; PULSE 64; RESP 18; TEMP 36.6; O2SAT 96
[2019-07-30 20:00] VITALS: PULSE 60; O2SAT 96; BMI 23.8
[2019-07-30] MEDS: Atorvastatin Calcium 40 MG Tablet GT (20:12)
[2019-07-30] MEDS: QUEtiapine 25 MG Tablet 37.5 MG GT (20:13)
[2019-07-30] MEDS: Latanoprost 0.005% 1 Bottle 1 DRP EACH EYE (20:14)
[2019-07-30 21:55] VITALS: BP 114/65; PULSE 60; RESP 16; TEMP 36.5; O2SAT 96
[2019-07-31] MEDS: Acetaminophen 650 MG/20 ML UDC 1000 MG GT ×3 (04:54→19:53)
[2019-07-31] MEDS: Jevity 1.5. 1,000 ML Bottle 240 ML GT ×5 (04:55→19:53)
--- NOTE | 2019-07-31 06:16 | PN_ITS ---
Subjective: Patient was seen and examined. No new complains. No acute events. Objective: Physical exam: General: Alert, Oriented x3, Cooperative, No apparent distress HEENT: Atraumatic, PERRLA, EOMI, Normocephalic Oral: Moist Mucosa Neck: Supple Lungs: Clear to auscultation, Normal air movement Cardiovascular: Regular rate, Regular Rhythm, Normal S1, Normal S2, No murmurs Abdomen: Bowel Sounds Present, Soft, Non Tender, Non-Distended, No Hepato- splenomegaly Extremities: No edema Skin: No rashes, No breakdown Musculoskeletal: No Tenderness to Palpation of Joints or Extremities Neurological: - - Left facial droop, power in LUE 2/5, power in LLE 4/5, power in RUE/RLE is 5/5. Psych/Mental Status: Normal Affect, Appropriate Vitals/I&O's: Vitals/I&O's: Vital Signs Temp Pulse Resp BP Pulse Ox 97.7 F L 60 16 114/65 96 07/30/19 21:55 07/30/19 21:55 07/30/19 21:55 07/30/19 21:55 07/30/19 21:55 Oxygen Delivery Method Room Air Weight: 65.3 kg Body Mass Index (BMI) 23.8 Finger Stick Blood Glucose 143 Orthostatic Vital Signs Start: 07/29/19 14:47 Freq: Status: Active Protocol: Activity Type Activity Date Activity User E-Sign Co-Sign Detail Recorded Client Recorded Date Recorded By Document 07/29/19 17:18 BL [id number] 07/29/19 17:24 07/29/19 17:18 Orthostatic Vitals Standing -Blood Pressure (90/60-120/80) 134/74 H -Extremity Use Right Arm -Pulse Rate (60-100) 62 Sitting -Blood Pressure (90/60-120/80) 136/86 H -Extremity Use Right Arm -Pulse Rate (60-100) 68 Lying -Blood Pressure (90/60-120/80) 129/86 H -Extremity Use Right Arm -Pulse Rate (60-100) 67 Intake and Output for Last 24 Hours 07/29/19 07/30/19 07/31/19 23:59 23:59 23:59 Intake Total 2400 / 2400 2009 390 / 390 Output Total 900 / 900 700 / 700 475 / 475 Balance 1500 / 1500 1310 / 1310 -85 / -85 Laboratory Results 07/30/19 05:25: Sodium 142, Potassium 3.8, Chloride 103, Carbon Dioxide 32.0, Anion Gap 7, BUN 32 H, Creatinine 0.88, Estim Creat Clear Calc 51.24, Est GFR (MDRD) Af Amer 80, Est GFR (MDRD) Non-Af 66, BUN/Creatinine Ratio 36.2 H, Glucose 112 H, Calcium 9.8, Phosphorus 3.8, Magnesium 2.2, Total Bilirubin 0.30, AST 16, ALT 24, Alkaline Phosphatase 100, Total Protein 6.7, Albumin 3.2, Globulin 3.5, Albumin/Globulin Ratio 0.9, Triglycerides 120, Cholesterol 164, LDL Cholesterol 83, VLDL Cholesterol 24, HDL Cholesterol 57 Current Medications Acetaminophen (Tylenol Liquid) 1,000 mg GT TID [facility] Last Admin: 07/31/19 04:54 Dose: 1,000 mg Documented by: Amlodipine Besylate (Norvasc) 10 mg PO DAILY [facility] Last Admin: 07/30/19 10:07 Dose: 10 mg Documented by: Apixaban (Eliquis) 5 mg GT BID [facility] Last Admin: 07/30/19 20:12 Dose: 5 mg Documented by: Atorvastatin Calcium (Lipitor) 40 mg GT QHS [facility] Last Admin: 07/30/19 20:12 Dose: 40 mg Documented by: Bisacodyl (Dulcolax) 10 mg RECTAL .PRN X 1 PRN PRN Reason: Constipation Calamine/Phenol (Calmoseptine Ointment) 1 applic TOPICAL BID [facility]; Protocol Last Admin: 07/30/19 20:12 Dose: 1 applicatio Documented by: Capsaicin (Zostrix) 1 applic TOPICAL BID [facility]; Protocol Last Admin: 07/30/19 20:15 Dose: 1 applicatio Documented by: Carvedilol (Coreg) 12.5 mg GT BID [facility] Last Admin: 07/30/19 20:12 Dose: 12.5 mg Documented by: Duloxetine HCl (Cymbalta) 60 mg PO DAILY [facility] Last Admin: 07/30/19 10:05 Dose: 60 mg Documented by: Enteral Nutritional Formula (Jevity 1.5) 240 ml GT 5X/DAY [facility] Last Admin: 07/31/19 04:55 Dose: 240 ml Documented by: Famotidine (Pepcid) 20 mg GT DAILY [facility] Last Admin: 07/30/19 10:07 Dose: 20 mg Documented by: Flecainide Acetate (Tambocor) 100 mg GT BID [facility] Last Admin: 07/30/19 20:12 Dose: 100 mg Documented by: Hydrochlorothiazide (Hctz) 25 mg GT DAILY [facility] Last Admin: 07/30/19 10:06 Dose: 25 mg Documented by: Lactobacillus Acidophilus (Acidophilus) 1 tablet GT BID [facility] Last Admin: 07/30/19 20:12 Dose: 1 tablet Documented by: Latanoprost (Xalatan Opthalmic) 1 drop EACH EYE DAILY@2199 [facility] Last Admin: 07/30/19 20:14 Dose: 1 drop Documented by: Lidocaine/Prilocaine (Emla Cream W/Tegaderm) 1 gm TOPICAL BID [facility]; Protocol Last Admin: 07/30/19 20:07 Dose: 1 applicatio Documented by: Loperamide HCl (Imodium) 2 mg PO Q4H PRN PRN PRN Reason: DIARRHEA/LOOSE STOOLS Last Admin: 07/26/19 10:03 Dose: 2 mg Documented by: Losartan Potassium (Cozaar) 100 mg GT DAILY [facility] Last Admin: 07/30/19 10:05 Dose: 100 mg Documented by: Magnesium Hydroxide (Milk Of Magnesia) 30 ml PO .PRN X 1 PRN PRN Reason: Constipation Last Admin: 07/08/19 17:32 Dose: 30 ml Documented by: Multi-Ingredient Cream (Eucerin) 1 applic TOPICAL TID PRN PRN; Protocol PRN Reason: Dry Skin Potassium Chloride (Potassium Chl Soln) 20 meq GT DAILY [facility] Last Admin: 07/30/19 10:07 Dose: 20 meq Documented by: Quetiapine Fumarate (Seroquel) 37.5 mg GT DAILY@1999 [facility] Last Admin: 07/30/19 20:13 Dose: 37.5 mg Documented by: Sodium Chloride () 5 - 15 ml IV UD PRN PRN Reason: SALINE FLUSH Last Admin: 06/19/19 06:13 Dose: 10 ml Documented by: Medical Necessity - Tobacco Use Smoking Status: Never smoker Tobacco Use: Non-smoker Assessment/Plan All Active Problems (Last Reviewed 07/09/19 @ 07:57 by Kathi Kilner) CVA (cerebral vascular accident) (Acute 05/2019) 79-year-old female with past medical history of chronic atrial fibrillation, hypertension, type II DM, hyperlipidemia, status post pacemaker admitted after an acute Right MCA stroke. She has had a long protracted in the acute rehab unit with aspiration pneumonia status post PEG tube placement. 1. Debility secondary to acute right MCA stroke status post right ICA thrombectomy Has left upper extremity paralysis On aspirin, statin, beta-rachna 2. s/p PEG tube placement, on Jevity 3. Hypertension, controlled, continue on amlodipine, carvedilol, hydrochlorothiazide, losartan Continue to monitor vitals closely 4. Paroxysmal atrial fibrillation, on flecainide and Eliquis 5. Type II DM, diet controlled, blood sugars are controlled 6. DVT PPx- Lovenox SC Code Visit Inpatient E&M: 17458 Subs Hosp L2
--- NOTE | 2019-07-31 07:46 | NS ---
Recommend 1 packet Elias BID mixed in 8 oz water via PEG for pressure injury. Recommend increase flushes to 180mL per feeding. Continue current TF regimen of Jevity 1.5 Vladimir via PEG- 240 mL bolus 5x/day with increased flushes of 90mL H2O flush before and after each feeding (180mL total) to provide 1800 calories, 76 g protein, and 1812 mL total fluid per day. Continue daily weights. Pt to remain NPO with [place] water protocol/ice chips in place; TF meets~100% estimated nutrition needs. Gisel Linn MS, RDN, LD
--- NOTE | 2019-07-31 08:05 | PN.NEURO_ITS ---
Subjective: NO issues overnight. Care discussed with nursing staff. - Physical Exam Vitals/I&O's: Vital Signs Temp Pulse Resp BP Pulse Ox 97.7 F L 60 16 114/65 96 07/30/19 21:55 07/30/19 21:55 07/30/19 21:55 07/30/19 21:55 07/30/19 21:55 Oxygen Delivery Method Room Air Weight: 65.3 kg Body Mass Index (BMI) 23.8 Finger Stick Blood Glucose 143 Orthostatic Vital Signs Start: 07/29/19 14:47 Freq: Status: Active Protocol: Activity Type Activity Date Activity User E-Sign Co-Sign Detail Recorded Client Recorded Date Recorded By Document 07/29/19 17:18 BL [id number] 07/29/19 17:24 07/29/19 17:18 Orthostatic Vitals Standing -Blood Pressure (90/60-120/80) 134/74 H -Extremity Use Right Arm -Pulse Rate (60-100) 62 Sitting -Blood Pressure (90/60-120/80) 136/86 H -Extremity Use Right Arm -Pulse Rate (60-100) 68 Lying -Blood Pressure (90/60-120/80) 129/86 H -Extremity Use Right Arm -Pulse Rate (60-100) 67 Intake and Output for Last 24 Hours 07/29/19 07/30/19 07/31/19 23:59 23:59 23:59 Intake Total 2400 / 2400 2009 390 / 390 Output Total 900 / 900 700 / 700 475 / 475 Balance 1500 / 1500 1310 / 1310 -85 / -85 General: Alert HEENT: Normocephalic Neck: Supple Lungs: Normal air movement Cardiovascular: Normal S1, Normal S2 Abdomen: Bowel Sounds Present Extremities: No cyanosis Neurological: - - conscious, alert, CN II to XII grossly intact except 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, power 5/5 right upper and lower extremities, 3/5 Left UE, 3/5 left LE, plantars right flexor, left mute, no pronator drift, left sensory loss with left sensory extinction, no cerebellar signs, gait deferred, reflexes + B/L B/S/T/K/A, dysarthria +,No NR, fundus not visualized Psych/Mental Status: Normal Affect Current Medications Acetaminophen (Tylenol Liquid) 1,000 mg GT TID [facility] Last Admin: 07/31/19 04:54 Dose: 1,000 mg Documented by: Amlodipine Besylate (Norvasc) 10 mg PO DAILY [facility] Last Admin: 07/30/19 10:07 Dose: 10 mg Documented by: Apixaban (Eliquis) 5 mg GT BID [facility] Last Admin: 07/30/19 20:12 Dose: 5 mg Documented by: Atorvastatin Calcium (Lipitor) 40 mg GT QHS [facility] Last Admin: 07/30/19 20:12 Dose: 40 mg Documented by: Bisacodyl (Dulcolax) 10 mg RECTAL .PRN X 1 PRN PRN Reason: Constipation Calamine/Phenol (Calmoseptine Ointment) 1 applic TOPICAL BID [facility]; Protocol Last Admin: 07/30/19 20:12 Dose: 1 applicatio Documented by: Capsaicin (Zostrix) 1 applic TOPICAL BID [facility]; Protocol Last Admin: 07/30/19 20:15 Dose: 1 applicatio Documented by: Carvedilol (Coreg) 12.5 mg GT BID [facility] Last Admin: 07/30/19 20:12 Dose: 12.5 mg Documented by: Duloxetine HCl (Cymbalta) 60 mg PO DAILY [facility] Last Admin: 07/30/19 10:05 Dose: 60 mg Documented by: Enteral Nutritional Formula (Jevity 1.5) 240 ml GT 5X/DAY [facility] Last Admin: 07/31/19 04:55 Dose: 240 ml Documented by: Famotidine (Pepcid) 20 mg GT DAILY [facility] Last Admin: 07/30/19 10:07 Dose: 20 mg Documented by: Flecainide Acetate (Tambocor) 100 mg GT BID [facility] Last Admin: 07/30/19 20:12 Dose: 100 mg Documented by: Hydrochlorothiazide (Hctz) 25 mg GT DAILY [facility] Last Admin: 07/30/19 10:06 Dose: 25 mg Documented by: Lactobacillus Acidophilus (Acidophilus) 1 tablet GT BID [facility] Last Admin: 07/30/19 20:12 Dose: 1 tablet Documented by: Latanoprost (Xalatan Opthalmic) 1 drop EACH EYE DAILY@2200 [facility] Last Admin: 07/30/19 20:14 Dose: 1 drop Documented by: Lidocaine/Prilocaine (Emla Cream W/Tegaderm) 1 gm TOPICAL BID [facility]; Protocol Last Admin: 07/30/19 20:07 Dose: 1 applicatio Documented by: Loperamide HCl (Imodium) 2 mg PO Q4H PRN PRN PRN Reason: DIARRHEA/LOOSE STOOLS Last Admin: 07/26/19 10:03 Dose: 2 mg Documented by: Losartan Potassium (Cozaar) 100 mg GT DAILY [facility] Last Admin: 07/30/19 10:05 Dose: 100 mg Documented by: Magnesium Hydroxide (Milk Of Magnesia) 30 ml PO .PRN X 1 PRN PRN Reason: Constipation Last Admin: 07/08/19 17:32 Dose: 30 ml Documented by: Multi-Ingredient Cream (Eucerin) 1 applic TOPICAL TID PRN PRN; Protocol PRN Reason: Dry Skin Potassium Chloride (Potassium Chl Soln) 20 meq GT DAILY [facility] Last Admin: 07/30/19 10:07 Dose: 20 meq Documented by: Quetiapine Fumarate (Seroquel) 37.5 mg GT DAILY@1999 [facility] Last Admin: 07/30/19 20:13 Dose: 37.5 mg Documented by: Sodium Chloride () 5 - 15 ml IV UD PRN PRN Reason: SALINE FLUSH Last Admin: 06/19/19 06:13 Dose: 10 ml Documented by: Medical Necessity - Tobacco Use Smoking Status: Never smoker Tobacco Use: Non-smoker Assessment/Plan All Active Problems (Last Reviewed 07/09/19 @ 07:57 by Kathi Shields) CVA (cerebral vascular accident) (Acute 05/2019) The patient is a 79 year old F with PMH of HTN, HLD, CAD, DM type II, A-fib with RVR, pacemaker, RUDY, anxiety and depression admitted to [facility] IPR on 06/06/2019 with debility secondary to right MCA with right M1 occlusion s/p post thrombectomy, for > 3 hours of therapy daily with a goal of returning home at or near her prior level of independence. She presented to [facility] ER on 05/23/2019 due to patient was found laying on the ground in her garage with left-sided deficits. NIH was 20. CT of brain suggestive of thrombus in the right MCA and an early infarct in the right MCA territory. CTA head and neck with contrast impression right MCA occlusion. No TPA and patient was transferred to [facility]. On 05/23/19, neurosurgeon Dr. Doll formed the right MCA thrombectomy, due to right LA occlusion. Postprocedural right ICA arteriogram demonstrated TICI?2b revascularization. CT of head without contrast on 06/04/2019 right MCA territory infarct with decrease edema noted in resolution of previously noted mass-effect of the right lateral ventricle and resolution of previously noted midline shift. Scattered hemorrhage within the infarct is less well. No new hemorrhage is identified.. Unable to obtain MRI due to pacemaker. TTE done which showed ejection fraction 65 to 70% and RVSP 41-45 mmHg. LDL 116, HgbA1c 6.5%. Prior to hospitalization patient was on Xarelto 15 mg daily for A. fib, was discontinued by [facility]. Plan - PT for gait stability - OT for ADLs - ST - PEG placement 06/13/19 - Right MCA infarct post thrombectomy on statin, asa, antihypertensives. Repeat CT head 06/10/2019 shows stable right MCA stroke with no new hemorrhage. Eliquis 5 mg p.o. twice daily started from 06/14/2019 post PEG placement, stroke initially occurred on 05/23/2019. Aspirin stopped once Eliquis was started, as per patient she was not on aspirin at home at baseline. - HTN on Losartan, HCTZ, amlodipine and Coreg. Goal blood pressure less than 130/80, avoid hypotension. Started on amlodipine from 07/11/2019. Tolerating medication well. - A-fib- on flecainide xeralto discontinued by [facility]. Here started on Eliquis 5 mg p.o. twice daily from 06/14/2019 after PEG placed on 06/13/19, stroke initially occurred on 05/23/2019. - DM- metformin on hold, accuchecks ac/hs, HgbA1c 6.4% -Left acromioclavicular arthritis?pain management consult, steroid injections per pain management, will defer further medical evaluation and management to pain management. Orthopedic consult as outpatient as orthopedics will not be seeing patients in the rehab.. - S/P PEG - HLD on lipitor LDL 116 - RUDY stable 06/15/19 H/H 10.3/31.7 - Anxiety/depression on cymbalta - Insomnia/visual hallucinations-on Seroquel - GI/DVT prophylaxis pepcid/Eliquis, knee high nataly hose - Further medical management per hospitalist-consult - Analgesics as needed - Bowel protocol - F/U neurosurgeon Dr. Harrison, PCP, neurology, cardiology, orthopedics and pain management
[2019-07-31 09:59] VITALS: BP 128/75; PULSE 64; RESP 16; TEMP 36.4; O2SAT 95
[2019-07-31] MEDS: DULoxetine Hcl 60 MG Capsule PO (10:53)
[2019-07-31] MEDS: hydroCHLOROthiazide 25 MG Tablet GT (10:54)
[2019-07-31] MEDS: Flecainide 100 MG Tablet GT ×2 (10:54→19:53)
[2019-07-31] MEDS: amLODIPine 10 MG Tablet PO (10:54)
[2019-07-31] MEDS: APIXABAN 5 MG TABLET GT ×2 (10:54→19:52)
[2019-07-31] MEDS: Famotidine 20 MG Tablet GT (10:54)
[2019-07-31] MEDS: Lidocaine/Prilocaine HCl 5 GM Tube 1 GM TOPICAL ×2 (10:55→19:52)
[2019-07-31] MEDS: Carvedilol 12.5 MG Tablet GT ×2 (10:55→19:52)
[2019-07-31] MEDS: Losartan Potassium 100 MG Tablet GT (10:55)
[2019-07-31] MEDS: Menthol/Lanolin/Calamine/Znox 113 GM Tube 1 APPLIC TOPICAL ×2 (10:56→19:52)
[2019-07-31] MEDS: Capsaicin 0.025% 1 APPLIC Tube TOPICAL ×2 (10:56→19:54)
[2019-07-31 14:46] VITALS: BMI 23.8
[2019-07-31 19:23] VITALS: BP 136/82; PULSE 63; RESP 16; TEMP 36.8; O2SAT 96
[2019-07-31] MEDS: QUEtiapine 25 MG Tablet 37.5 MG GT (19:51)
[2019-07-31] MEDS: Atorvastatin Calcium 40 MG Tablet GT (19:51)
[2019-07-31] MEDS: Latanoprost 0.005% 1 Bottle 1 DRP EACH EYE (19:53)
[2019-07-31 21:29] VITALS: BMI 23.8
--- NOTE | 2019-08-01 01:10 | NURSING ---
REVIEWED AND AGREE WITH ATTACHER'S FUNCTIONAL ASSESSMENT AND HANDOFF CHARTING.
[2019-08-01] MEDS: Acetaminophen 650 MG/20 ML UDC 1000 MG GT ×3 (05:20→20:04)
[2019-08-01] MEDS: Jevity 1.5. 1,000 ML Bottle 240 ML GT ×5 (05:22→20:19)
[2019-08-01 07:00] VITALS: BP 115/67; PULSE 63; RESP 16; TEMP 36.6; O2SAT 97
[2019-08-01] MEDS: Losartan Potassium 100 MG Tablet GT (08:52)
[2019-08-01] MEDS: Flecainide 100 MG Tablet GT ×2 (08:52→20:10)
[2019-08-01] MEDS: Carvedilol 12.5 MG Tablet GT ×2 (08:52→20:10)
[2019-08-01] MEDS: DULoxetine Hcl 60 MG Capsule PO (08:52)
[2019-08-01] MEDS: hydroCHLOROthiazide 25 MG Tablet GT (08:53)
[2019-08-01] MEDS: Famotidine 20 MG Tablet GT (08:54)
[2019-08-01] MEDS: amLODIPine 10 MG Tablet PO (08:54)
[2019-08-01] MEDS: APIXABAN 5 MG TABLET GT ×2 (08:55→20:10)
[2019-08-01] MEDS: Menthol/Lanolin/Calamine/Znox 113 GM Tube 1 APPLIC TOPICAL ×2 (08:56→20:20)
[2019-08-01] MEDS: Lidocaine/Prilocaine HCl 5 GM Tube 1 GM TOPICAL ×2 (08:57→20:12)
[2019-08-01] MEDS: Loperamide 2 MG Capsule PO (08:58)
[2019-08-01] MEDS: Capsaicin 0.025% 1 APPLIC Tube TOPICAL ×2 (10:49→20:12)
[2019-08-01 14:17] VITALS: BMI 23.8
[2019-08-01 16:00] VITALS: BP 140/77
--- NOTE | 2019-08-01 18:28 | PCM.PROGNOTE ---
Subjective: Afebrile Vital signs stable 95 to 97% saturation on room air with a respiratory rate of 16. Lying in bed talking with her family. Still confused. Introduced her dtr as her older sister. Asked me if I knew how Rosalio(her was doing). Still seeing cockroaches on the ceiling.......but does not seem to be upset about this any longer. D/W nursing - no problems or concerns today. She had a bowel movement today. - Physical Exam Vitals/I&O's: Vital Signs Temp Pulse Resp BP Pulse Ox 97.9 F 63 16 115/67 97 08/01/19 07:00 08/01/19 07:00 08/01/19 07:00 08/01/19 07:00 08/01/19 07:00 Oxygen Delivery Method Room Air Weight: 143 lb 15.39 oz Body Mass Index (BMI) 23.8 Finger Stick Blood Glucose 143 Orthostatic Vital Signs Start: 07/29/19 14:47 Freq: Status: Active Protocol: Activity Type Activity Date Activity User E-Sign Co-Sign Detail Recorded Client Recorded Date Recorded By Document 07/29/19 17:18 BL [id number] 07/29/19 17:24 BL 07/29/19 17:18 Orthostatic Vitals Standing -Blood Pressure (90/60-120/80 mm Hg) 134/74 H -Extremity Use Right Arm -Pulse Rate (60-100 beats/min) 62 Sitting -Blood Pressure (90/60-120/80 mm Hg) 136/86 H -Extremity Use Right Arm -Pulse Rate (60-100 beats/min) 68 Lying -Blood Pressure (90/60-120/80 mm Hg) 129/86 H -Extremity Use Right Arm -Pulse Rate (60-100 beats/min) 67 Intake and Output for Last 24 Hours 07/30/19 07/31/19 08/01/19 23:59 23:59 23:59 Intake Total 2009 2760 / 2760 1530 / 1530 Output Total 700 / 700 475 / 475 300 / 300 Balance 1310 / 1310 2285 / 2285 1230 / 1230 General: Alert, Cooperative, Confused Oral: Moist Mucosa Neck: Supple, No JVD Lungs: Clear to auscultation, Normal air movement Cardiovascular: Regular rate, Regular Rhythm, Normal S1, Normal S2, No murmurs, No rub noted, No Gallop Abdomen: Bowel Sounds Present, Soft, Non Tender, Non-Distended, - - PEG site is without erythema or purulent discharge. No guarding with palpation of the abdomen. Extremities: No clubbing, No cyanosis, No edema Skin: No rashes Neurological: - - Persistent left facial droop but speech she is easily understandable. 5/5 strength in the right upper extremity and right lower extremity. Strength in the left upper extremity is poor, unable to lift the LUE off the bed but , she could move a little side to side. I reviewed the PT and OT notes from 07/31. doing much better with ambulation and she is not scissoring with the LLE. Psych/Mental Status: Appropriate, - - Good mood, talkative, does not appear to be in any distress, visiting with her family. Current Medications Acetaminophen (Tylenol Liquid) 1,000 mg GT TID [facility] Last Admin: 08/01/19 13:44 Dose: 1,000 mg Documented by: Amlodipine Besylate (Norvasc) 10 mg PO DAILY [facility] Last Admin: 08/01/19 08:54 Dose: 10 mg Documented by: Apixaban (Eliquis) 5 mg GT BID [facility] Last Admin: 08/01/19 08:55 Dose: 5 mg Documented by: Atorvastatin Calcium (Lipitor) 40 mg GT QHS [facility] Last Admin: 07/31/19 19:51 Dose: 40 mg Documented by: Bisacodyl (Dulcolax) 10 mg RECTAL .PRN X 1 PRN PRN Reason: Constipation Calamine/Phenol (Calmoseptine Ointment) 1 applic TOPICAL BID [facility]; Protocol Last Admin: 08/01/19 08:56 Dose: 1 applicatio Documented by: Capsaicin (Zostrix) 1 applic TOPICAL BID [facility]; Protocol Last Admin: 08/01/19 10:49 Dose: 1 applicatio Documented by: Carvedilol (Coreg) 12.5 mg GT BID [facility] Last Admin: 08/01/19 08:52 Dose: 12.5 mg Documented by: Duloxetine HCl (Cymbalta) 60 mg PO DAILY [facility] Last Admin: 08/01/19 08:52 Dose: 60 mg Documented by: Enteral Nutritional Formula (Jevity 1.5) 240 ml GT 5X/DAY [facility] Last Admin: 08/01/19 17:13 Dose: 240 ml Documented by: Famotidine (Pepcid) 20 mg GT DAILY [facility] Last Admin: 08/01/19 08:54 Dose: 20 mg Documented by: Flecainide Acetate (Tambocor) 100 mg GT BID [facility] Last Admin: 08/01/19 08:52 Dose: 100 mg Documented by: Hydrochlorothiazide (Hctz) 25 mg GT DAILY [facility] Last Admin: 08/01/19 08:53 Dose: 25 mg Documented by: Lactobacillus Acidophilus (Acidophilus) 1 tablet GT BID [facility] Last Admin: 08/01/19 08:52 Dose: 1 tablet Documented by: Latanoprost (Xalatan Opthalmic) 1 drop EACH EYE DAILY@2199 [facility] Last Admin: 07/31/19 19:53 Dose: 1 drop Documented by: Lidocaine/Prilocaine (Emla Cream W/Tegaderm) 1 gm TOPICAL BID [facility]; Protocol Last Admin: 08/01/19 08:57 Dose: 1 applicatio Documented by: Loperamide HCl (Imodium) 2 mg PO Q4H PRN PRN PRN Reason: DIARRHEA/LOOSE STOOLS Last Admin: 08/01/19 08:58 Dose: 2 mg Documented by: Losartan Potassium (Cozaar) 100 mg GT DAILY [facility] Last Admin: 08/01/19 08:52 Dose: 100 mg Documented by: Magnesium Hydroxide (Milk Of Magnesia) 30 ml PO .PRN X 1 PRN PRN Reason: Constipation Last Admin: 07/08/19 17:32 Dose: 30 ml Documented by: Multi-Ingredient Cream (Eucerin) 1 applic TOPICAL TID PRN PRN; Protocol PRN Reason: Dry Skin Potassium Chloride (Potassium Chl Soln) 20 meq GT DAILY [facility] Last Admin: 08/01/19 08:55 Dose: 20 meq Documented by: Quetiapine Fumarate (Seroquel) 37.5 mg GT DAILY@1999 [facility] Last Admin: 07/31/19 19:51 Dose: 37.5 mg Documented by: Sodium Chloride () 5 - 15 ml IV UD PRN PRN Reason: SALINE FLUSH Last Admin: 06/19/19 06:13 Dose: 10 ml Documented by: Medical Necessity - Tobacco Use Smoking Status: Never smoker Tobacco Use: Non-smoker Assessment/Plan All Active Problems (Last Reviewed 07/09/19 @ 07:57 by Kathi Shields) CVA (cerebral vascular accident) (Acute 05/2019) Impressions 1. 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 Patient is status thrombectomy on 05/23/[address] [facility] [address] Doll. 2. AF - on Flecanide and Coreg. 3. chronic anticoagulation with Eliquis 4. Last ECHO at [facility] with an estimated PA systolic of 60 but, recent TAMERA at [facility] states the PA pressure was 40-45. this is consistent with mild Pulmonary HTN. the EF was 65-70% 5. Dysphagia due to CVA 6. DM II - blood sugars are controlled. HGBA1C is 6.4%. 7. HLD - on atorvastatin 40 mg daily. The last LDL recorded was 116 which is too high. Will need to repeat a liver panel and lipid panel 8. Gtgvnzzmyiev-vgiu-wfjmcpgrib. ? whether she needs HCTZ? The BUN/CREAT ratio is quite high. Will check orthostatic VS's and if she is orthostatic will DC the HCTZ. In addition to hydrochlorothiazide she is also receiving losartan, amlodipine and Coreg for blood pressure control. 9. CAD 10. S/P PM 11. Anxiety/depression 12. Visual hallucinations.......seem to be improving with the increase in the Seroquel. Will continue at the current dose 13. S/P PEG 06/13/2019. 14. mild - moderate Pulmonary HTN - etiology? 15. Hx of iron deficiency anemia - has seen hematology in the past. HGB has been stable 16. OA with Left shoulder pain - injected by orthos but the pain recurred in a few days......strted on EMLA cream and zostrix recently and she states the pain is much better so will continue 79-year-old female with a past medical history of atrial fibrillation, chronic anticoagulation with Eliquis, diabetes mellitus type 2, hyperlipidemia, hypertension, coronary artery disease, sick sinus syndrome with pacemaker implantation, anxiety/depression and mild to moderate pulmonary hypertension admitted to the inpatient rehab unit at [facility] or debility secondary to a right MCA ischemic CVA on 05/23/2019 secondary to thrombus in the right MCA with small scattered hemorrhage. She is status thrombectomy on 05/23/[address] [facility] [address] Doll. Currently n.p.o. and is receiving PEG tube feedings. PT for gait stability OT for ADLs Speech therapy PEG placement 06/13/2019-remains n.p.o. Anxiety/depression on Cymbalta Visual hallucinations-on Seroquel very alert on Seroquel now and although the hallucinations are still there she is not bothered by them Analgesics as needed Bowel protocol Follow-up with Dr. Harrison, PCP, neurology, cardiology at [facility]. Will likely need to go to a SNF for ongoing PT/OT/STat DC Code Visit Inpatient E&M: 67429 Subs Hosp L2
[2019-08-01 20:02] VITALS: BP 132/75; PULSE 63; RESP 16; TEMP 36; O2SAT 94
[2019-08-01] MEDS: QUEtiapine 25 MG Tablet 37.5 MG GT (20:08)
[2019-08-01] MEDS: Atorvastatin Calcium 40 MG Tablet GT (20:10)
[2019-08-01] MEDS: Latanoprost 0.005% 1 Bottle 1 DRP EACH EYE (20:11)
[2019-08-01 22:56] VITALS: BMI 23.8
[2019-08-02] MEDS: Acetaminophen 650 MG/20 ML UDC 1000 MG GT ×3 (06:25→21:20)
[2019-08-02] MEDS: Jevity 1.5. 1,000 ML Bottle 240 ML GT ×5 (06:31→21:22)
[2019-08-02 07:31] VITALS: BP 141/78; PULSE 66; RESP 18; TEMP 36.6; O2SAT 95
--- NOTE | 2019-08-02 10:02 | PCM.PN.NEU ---
Subjective: No issues overnight. Care discussed with the nursing staff. Per nursing staff visual hallucinations has been better with Seroquel - Physical Exam Vitals/I&O's: Vital Signs Temp Pulse Resp BP Pulse Ox 97.8 F 66 18 141/78 H 95 08/02/19 07:31 08/02/19 07:31 08/02/19 07:31 08/02/19 07:31 08/02/19 07:31 Oxygen Delivery Method Room Air Weight: 65.5 kg Body Mass Index (BMI) 23.8 Finger Stick Blood Glucose 143 Orthostatic Vital Signs Start: 07/29/19 14:47 Freq: Status: Active Protocol: Activity Type Activity Date Activity User E-Sign Co-Sign Detail Recorded Client Recorded Date Recorded By Document 07/29/19 17:18 BL [id number] 07/29/19 17:24 BL 07/29/19 17:18 Orthostatic Vitals Standing -Blood Pressure (90/60-120/80) 134/74 H -Extremity Use Right Arm -Pulse Rate (60-100) 62 Sitting -Blood Pressure (90/60-120/80) 136/86 H -Extremity Use Right Arm -Pulse Rate (60-100) 68 Lying -Blood Pressure (90/60-120/80) 129/86 H -Extremity Use Right Arm -Pulse Rate (60-100) 67 Intake and Output for Last 24 Hours 07/31/19 08/01/19 08/02/19 23:59 23:59 23:59 Intake Total 2760 / 2760 2280 / 2280 360 / 360 Output Total 475 / 475 300 / 300 Balance 2285 / 2285 1979 / 1979 360 / 360 General: Alert HEENT: Normocephalic Neck: Supple Lungs: Normal air movement Cardiovascular: Normal S1, Normal S2 Abdomen: Bowel Sounds Present Extremities: No cyanosis Neurological: - - conscious, alert, CN II to XII grossly intact except 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, power 5/5 right upper and lower extremities, 3/5 Left UE, 3/5 left LE, plantars right flexor, left mute, no pronator drift, left sensory loss with left sensory extinction, no cerebellar signs, gait deferred, reflexes + B/L B/S/T/K/A, dysarthria +,No NR, fundus not visualized Psych/Mental Status: Normal Affect Current Medications Acetaminophen (Tylenol Liquid) 1,000 mg GT TID [facility] Last Admin: 08/02/19 06:25 Dose: 1,000 mg Documented by: Amlodipine Besylate (Norvasc) 10 mg PO DAILY [facility] Last Admin: 08/01/19 08:54 Dose: 10 mg Documented by: Apixaban (Eliquis) 5 mg GT BID [facility] Last Admin: 08/01/19 20:10 Dose: 5 mg Documented by: Atorvastatin Calcium (Lipitor) 40 mg GT QHS [facility] Last Admin: 08/01/19 20:10 Dose: 40 mg Documented by: Bisacodyl (Dulcolax) 10 mg RECTAL .PRN X 1 PRN PRN Reason: Constipation Calamine/Phenol (Calmoseptine Ointment) 1 applic TOPICAL BID [facility]; Protocol Last Admin: 08/01/19 20:20 Dose: 1 applicatio Documented by: Capsaicin (Zostrix) 1 applic TOPICAL BID [facility]; Protocol Last Admin: 08/01/19 20:12 Dose: 1 applicatio Documented by: Carvedilol (Coreg) 12.5 mg GT BID [facility] Last Admin: 08/01/19 20:10 Dose: 12.5 mg Documented by: Duloxetine HCl (Cymbalta) 60 mg PO DAILY [facility] Last Admin: 08/01/19 08:52 Dose: 60 mg Documented by: Enteral Nutritional Formula (Jevity 1.5) 240 ml GT 5X/DAY [facility] Last Admin: 08/02/19 06:31 Dose: 240 ml Documented by: Famotidine (Pepcid) 20 mg GT DAILY [facility] Last Admin: 08/01/19 08:54 Dose: 20 mg Documented by: Flecainide Acetate (Tambocor) 100 mg GT BID [facility] Last Admin: 08/01/19 20:10 Dose: 100 mg Documented by: Hydrochlorothiazide (Hctz) 25 mg GT DAILY [facility] Last Admin: 08/01/19 08:53 Dose: 25 mg Documented by: Lactobacillus Acidophilus (Acidophilus) 1 tablet GT BID [facility] Last Admin: 08/01/19 20:10 Dose: 1 tablet Documented by: Latanoprost (Xalatan Opthalmic) 1 drop EACH EYE DAILY@2200 [facility] Last Admin: 08/01/19 20:11 Dose: 1 drop Documented by: Lidocaine/Prilocaine (Emla Cream W/Tegaderm) 1 gm TOPICAL BID [facility]; Protocol Last Admin: 08/01/19 20:12 Dose: 1 applicatio Documented by: Loperamide HCl (Imodium) 2 mg PO Q4H PRN PRN PRN Reason: DIARRHEA/LOOSE STOOLS Last Admin: 08/01/19 08:58 Dose: 2 mg Documented by: Losartan Potassium (Cozaar) 100 mg GT DAILY [facility] Last Admin: 08/01/19 08:52 Dose: 100 mg Documented by: Magnesium Hydroxide (Milk Of Magnesia) 30 ml PO .PRN X 1 PRN PRN Reason: Constipation Last Admin: 07/08/19 17:32 Dose: 30 ml Documented by: Multi-Ingredient Cream (Eucerin) 1 applic TOPICAL TID PRN PRN; Protocol PRN Reason: Dry Skin Potassium Chloride (Potassium Chl Soln) 20 meq GT DAILY [facility] Last Admin: 08/01/19 08:55 Dose: 20 meq Documented by: Quetiapine Fumarate (Seroquel) 37.5 mg GT DAILY@1999 [facility] Last Admin: 08/01/19 20:08 Dose: 37.5 mg Documented by: Sodium Chloride () 5 - 15 ml IV UD PRN PRN Reason: SALINE FLUSH Last Admin: 06/19/19 06:13 Dose: 10 ml Documented by: STROKE Vital Signs/Narrative: Vital Signs Temp Pulse Resp BP Pulse Ox 08/02/19 07:31 97.8 F 66 18 141/78 H 95 Medical Necessity - Tobacco Use Smoking Status: Never smoker Tobacco Use: Non-smoker Assessment/Plan All Active Problems (Last Reviewed 07/09/19 @ 07:57 by Kathi Shields) CVA (cerebral vascular accident) (Acute 05/2019) The patient is a 79 year old F with PMH of HTN, HLD, CAD, DM type II, A-fib with RVR, pacemaker, RUDY, anxiety and depression admitted to [facility] on 06/06/2019 with debility secondary to right MCA with right M1 occlusion s/p post thrombectomy, for > 3 hours of therapy daily with a goal of returning home at or near her prior level of independence. She presented to [facility] ER on 05/23/2019 due to patient was found laying on the ground in her garage with left-sided deficits. NIH was 20. CT of brain suggestive of thrombus in the right MCA and an early infarct in the right MCA territory. CTA head and neck with contrast impression right MCA occlusion. No TPA and patient was transferred to [facility]. On 05/23/19, neurosurgeon Dr. Doll formed the right MCA thrombectomy, due to right TN occlusion. Postprocedural right ICA arteriogram demonstrated TICI?2b revascularization. CT of head without contrast on 06/04/2019 right MCA territory infarct with decrease edema noted in resolution of previously noted mass-effect of the right lateral ventricle and resolution of previously noted midline shift. Scattered hemorrhage within the infarct is less well. No new hemorrhage is identified.. Unable to obtain MRI due to pacemaker. TTE done which showed ejection fraction 65 to 70% and RVSP 41-45 mmHg. LDL 116, HgbA1c 6.5%. Prior to hospitalization patient was on Xarelto 15 mg daily for A. fib, was discontinued by [facility]. Plan - PT for gait stability - OT for ADLs - ST - PEG placement 06/13/19 - Right MCA infarct post thrombectomy on statin, asa, antihypertensives. Repeat CT head 06/10/2019 shows stable right MCA stroke with no new hemorrhage. Eliquis 5 mg p.o. twice daily started from 06/14/2019 post PEG placement, stroke initially occurred on 05/23/2019. Aspirin stopped once Eliquis was started, as per patient she was not on aspirin at home at baseline. - HTN on Losartan, HCTZ, amlodipine and Coreg. Goal blood pressure less than 130/80, avoid hypotension. Started on amlodipine from 07/11/2019. Tolerating medication well. - A-fib- on flecainide xeralto discontinued by [facility]. Here started on Eliquis 5 mg p.o. twice daily from 06/14/2019 after PEG placed on 06/13/19, stroke initially occurred on 05/23/2019. - DM- metformin on hold per hospitalist, accl[place]neecks ac/hs, HgbA1c 6.4% -Left acromioclavicular arthritis?pain management consult, steroid injections per pain management, will defer further medical evaluation and management to pain management. Orthopedic consult as outpatient as orthopedics will not be seeing patients in the rehab.. - S/P PEG - HLD on lipitor LDL 116 - RUDY stable 10/12/19 H/H 10.3/31.7 - Anxiety/depression on cymbalta - Insomnia/visual hallucinations-on Seroquel - GI/DVT prophylaxis pepcid/Eliquis, knee high nataly abdalla - Further medical management per hospitalist-consult - Analgesics as needed - Bowel protocol - F/U neurosurgeon Dr. Harrison, PCP, neurology, cardiology, orthopedics and pain management
[2019-08-02] MEDS: Menthol/Lanolin/Calamine/Znox 113 GM Tube 1 APPLIC TOPICAL ×2 (10:43→21:06)
[2019-08-02] MEDS: Lidocaine/Prilocaine HCl 5 GM Tube 1 GM TOPICAL ×2 (10:44→22:19)
[2019-08-02] MEDS: Carvedilol 12.5 MG Tablet GT ×2 (10:44→21:10)
[2019-08-02] MEDS: DULoxetine Hcl 60 MG Capsule PO (10:44)
[2019-08-02] MEDS: Losartan Potassium 100 MG Tablet GT (10:44)
[2019-08-02] MEDS: APIXABAN 5 MG TABLET GT ×2 (10:44→21:09)
[2019-08-02] MEDS: Famotidine 20 MG Tablet GT (10:45)
[2019-08-02] MEDS: hydroCHLOROthiazide 25 MG Tablet GT (10:45)
[2019-08-02] MEDS: amLODIPine 10 MG Tablet PO (10:45)
[2019-08-02] MEDS: Capsaicin 0.025% 1 APPLIC Tube TOPICAL ×2 (10:46→22:40)
[2019-08-02] MEDS: Flecainide 100 MG Tablet GT ×2 (10:46→21:08)
--- NOTE | 2019-08-02 10:59 | PN_ITS ---
Reason for Visit: CC follow-up physical debility Subjective: Patient seen participating in physical therapy Objective: GENERAL: Cooperative HEENT: Oral thrush EYES; Anicteric, Normal Conjunctiva NECK; supple, normal thyroid, RESPIRATORY: Diminished to auscultation CARDIOVASCULAR: Irregular S1 S2, GI: soft, non-tender, normoactive bowel sounds, : No Renal angle tenderness; EXTREMITIES: No edema, no clubbing, NEURO: Awake; left sided weakness SKIN: No Rash PSYCH;flat affect Vitals/I&O's: Vital Signs Temp Pulse Resp BP Pulse Ox 97.8 F 66 18 141/78 H 95 08/02/19 07:31 08/02/19 07:31 08/02/19 07:31 08/02/19 07:31 08/02/19 07:31 Oxygen Delivery Method Room Air Weight: 65.5 kg Body Mass Index (BMI) 23.8 Finger Stick Blood Glucose 143 Orthostatic Vital Signs Start: 07/29/19 14:47 Freq: Status: Active Protocol: Activity Type Activity Date Activity User E-Sign Co-Sign Detail Recorded Client Recorded Date Recorded By Document 07/29/19 17:18 BL [id number] 07/29/19 17:24 BL 07/29/19 17:18 Orthostatic Vitals Standing -Blood Pressure (90/60-120/80) 134/74 H -Extremity Use Right Arm -Pulse Rate (60-100) 62 Sitting -Blood Pressure (90/60-120/80) 136/86 H -Extremity Use Right Arm -Pulse Rate (60-100) 68 Lying -Blood Pressure (90/60-120/80) 129/86 H -Extremity Use Right Arm -Pulse Rate (60-100) 67 Intake and Output for Last 24 Hours 07/31/19 08/01/19 08/02/19 23:59 23:59 23:59 Intake Total 2760 / 2760 2280 / 2280 360 / 360 Output Total 475 / 475 300 / 300 Balance 2285 / 2285 1979 / 1979 360 / 360 Current Medications Acetaminophen (Tylenol Liquid) 1,000 mg GT TID [facility] Last Admin: 08/02/19 06:25 Dose: 1,000 mg Documented by: Amlodipine Besylate (Norvasc) 10 mg PO DAILY [facility] Last Admin: 08/02/19 10:45 Dose: 10 mg Documented by: Apixaban (Eliquis) 5 mg GT BID [facility] Last Admin: 08/02/19 10:44 Dose: 5 mg Documented by: Atorvastatin Calcium (Lipitor) 40 mg GT QHS [facility] Last Admin: 08/01/19 20:10 Dose: 40 mg Documented by: Bisacodyl (Dulcolax) 10 mg RECTAL .PRN X 1 PRN PRN Reason: Constipation Calamine/Phenol (Calmoseptine Ointment) 1 applic TOPICAL BID [facility]; Protocol Last Admin: 08/02/19 10:43 Dose: 1 applicatio Documented by: Capsaicin (Zostrix) 1 applic TOPICAL BID [facility]; Protocol Last Admin: 08/02/19 10:46 Dose: 1 applicatio Documented by: Carvedilol (Coreg) 12.5 mg GT BID [facility] Last Admin: 08/02/19 10:44 Dose: 12.5 mg Documented by: Duloxetine HCl (Cymbalta) 60 mg PO DAILY [facility] Last Admin: 08/02/19 10:44 Dose: 60 mg Documented by: Enteral Nutritional Formula (Jevity 1.5) 240 ml GT 5X/DAY [facility] Last Admin: 08/02/19 10:45 Dose: 240 ml Documented by: Famotidine (Pepcid) 20 mg GT DAILY [facility] Last Admin: 08/02/19 10:45 Dose: 20 mg Documented by: Flecainide Acetate (Tambocor) 100 mg GT BID [facility] Last Admin: 08/02/19 10:46 Dose: 100 mg Documented by: Hydrochlorothiazide (Hctz) 25 mg GT DAILY [facility] Last Admin: 08/02/19 10:45 Dose: 25 mg Documented by: Lactobacillus Acidophilus (Acidophilus) 1 tablet GT BID [facility] Last Admin: 08/02/19 10:43 Dose: 1 tablet Documented by: Latanoprost (Xalatan Opthalmic) 1 drop EACH EYE DAILY@2200 [facility] Last Admin: 08/01/19 20:11 Dose: 1 drop Documented by: Lidocaine/Prilocaine (Emla Cream W/Tegaderm) 1 gm TOPICAL BID [facility]; Protocol Last Admin: 08/02/19 10:44 Dose: 1 applicatio Documented by: Loperamide HCl (Imodium) 2 mg PO Q4H PRN PRN PRN Reason: DIARRHEA/LOOSE STOOLS Last Admin: 08/01/19 08:58 Dose: 2 mg Documented by: Losartan Potassium (Cozaar) 100 mg GT DAILY [facility] Last Admin: 08/02/19 10:44 Dose: 100 mg Documented by: Magnesium Hydroxide (Milk Of Magnesia) 30 ml PO .PRN X 1 PRN PRN Reason: Constipation Last Admin: 07/08/19 17:32 Dose: 30 ml Documented by: Multi-Ingredient Cream (Eucerin) 1 applic TOPICAL TID PRN PRN; Protocol PRN Reason: Dry Skin Potassium Chloride (Potassium Chl Soln) 20 meq GT DAILY [facility] Last Admin: 08/02/19 10:46 Dose: 20 meq Documented by: Quetiapine Fumarate (Seroquel) 37.5 mg GT DAILY@1999 [facility] Last Admin: 08/01/19 20:08 Dose: 37.5 mg Documented by: Sodium Chloride () 5 - 15 ml IV UD PRN PRN Reason: SALINE FLUSH Last Admin: 06/19/19 06:13 Dose: 10 ml Documented by: STROKE Vital Signs/Narrative: Vital Signs Temp Pulse Resp BP Pulse Ox 08/02/19 07:31 97.8 F 66 18 141/78 H 95 Medical Necessity - Tobacco Use Smoking Status: Never smoker Tobacco Use: Non-smoker Assessment/Plan All Active Problems (Last Reviewed 07/09/19 @ 07:57 by Kathi Shields) CVA (cerebral vascular accident) (Acute 05/2019) Patient is a 79-year-old lady admitted to the inpatient rehab unit with significant debility secondary to acute right MCA stroke with residual left- sided paralysis 1. Acute right MCA ischemic stroke with residual left-sided paralysis. Patient underwent right ICA thrombectomy subsequently transferred to the rehab unit at the [facility] patient has had a protracted stay at the inpatient rehab he needs including placement of feeding tube to stay which was complicated by aspiration pneumonia ?08/02/2019: Seen participating in physical therapy 2. Status post PEG tube placement ~patient currently on Jevity via tube feeding 3. Hypertension ~ blood pressure controlled, home medications continued with dose adjustment as needed 4. Paroxysmal atrial fibrillation ~Patient is on flecainide was on systemic anticoagulation with Eliquis 5. Dyslipidemia ~patient is on statin therapy, continued at home dose 6. Hypokalemia ~corrected per protocol 7. Left acromioclavicular DJD with significant pain ~ status post steroid injection 8. Depression with anxiety patient is on Seroquel as well as Ativan as needed 9. Aspiration pneumonia ?Resolved 10. Oral candidiasis ?Resolved 9. DVT prophylaxis ~On apixaban Code Visit Inpatient E&M: 38572 Subs Hosp L2
[2019-08-02 15:11] VITALS: BMI 23.8
--- NOTE | 2019-08-02 15:15 | NURSING ---
1000-dr vela in and discussed with rn familys wishes to change from seroquel to trazadone. dr. ibanez with no new orders at this time.
[2019-08-02 18:59] VITALS: BP 133/80; PULSE 66; RESP 16; TEMP 36.8; O2SAT 96
[2019-08-02] MEDS: QUEtiapine 25 MG Tablet 37.5 MG GT (21:06)
[2019-08-02] MEDS: Atorvastatin Calcium 40 MG Tablet GT (21:08)
[2019-08-02] MEDS: Latanoprost 0.005% 1 Bottle 1 DRP EACH EYE (22:19)
[2019-08-03 02:46] VITALS: BMI 23.8
[2019-08-03] MEDS: Jevity 1.5. 1,000 ML Bottle 240 ML GT ×5 (06:09→20:15)
[2019-08-03] MEDS: Acetaminophen 650 MG/20 ML UDC 1000 MG GT ×3 (06:11→20:16)
[2019-08-03 07:00] VITALS: BP 138/72; PULSE 64; RESP 18; TEMP 36.6; O2SAT 96
[2019-08-03] MEDS: Flecainide 100 MG Tablet GT ×2 (07:42→20:15)
[2019-08-03] MEDS: Famotidine 20 MG Tablet GT (07:42)
[2019-08-03] MEDS: APIXABAN 5 MG TABLET GT ×2 (07:42→20:14)
[2019-08-03] MEDS: Losartan Potassium 100 MG Tablet GT (07:42)
[2019-08-03] MEDS: amLODIPine 10 MG Tablet PO (07:42)
[2019-08-03] MEDS: DULoxetine Hcl 60 MG Capsule PO (07:42)
[2019-08-03] MEDS: hydroCHLOROthiazide 25 MG Tablet GT (07:42)
[2019-08-03] MEDS: Carvedilol 12.5 MG Tablet GT ×2 (07:42→20:14)
[2019-08-03] MEDS: Loperamide 2 MG Capsule PO (07:44)
[2019-08-03] MEDS: Lidocaine/Prilocaine HCl 5 GM Tube 1 GM TOPICAL ×2 (07:52→20:15)
[2019-08-03] MEDS: Menthol/Lanolin/Calamine/Znox 113 GM Tube 1 APPLIC TOPICAL ×2 (07:54→20:14)
[2019-08-03] MEDS: Capsaicin 0.025% 1 APPLIC Tube TOPICAL ×2 (08:08→20:17)
[2019-08-03 14:29] VITALS: BMI 23.8
[2019-08-03 15:00] VITALS: BP 123/78; PULSE 68
[2019-08-03 19:51] VITALS: BP 130/75; PULSE 66; RESP 18; TEMP 36.3; O2SAT 95
[2019-08-03] MEDS: QUEtiapine 25 MG Tablet 37.5 MG GT (20:13)
[2019-08-03] MEDS: Atorvastatin Calcium 40 MG Tablet GT (20:15)
[2019-08-03] MEDS: Latanoprost 0.005% 1 Bottle 1 DRP EACH EYE (20:16)
[2019-08-03 22:13] VITALS: BMI 23.8
--- NOTE | 2019-08-04 01:42 | NURSING ---
REVIEWED AND AGREE WITH CELLULAR PHONE REPAIRER'S FUNCTIONAL ASSESSMENT AND HANDOFF CHARTING.
--- NOTE | 2019-08-04 05:06 | NURSING ---
pt offered shower at this time for am care. pt refusing. pt states she did not want a shower today. staff to assist with incontinent care and oral care.
[2019-08-04] MEDS: Acetaminophen 650 MG/20 ML UDC 1000 MG GT ×3 (06:22→19:40)
[2019-08-04] MEDS: Jevity 1.5. 1,000 ML Bottle 240 ML GT ×5 (06:22→19:40)
[2019-08-04 07:00] VITALS: BP 119/70; PULSE 60; RESP 18; TEMP 36.6; O2SAT 95
[2019-08-04] MEDS: DULoxetine Hcl 60 MG Capsule PO (09:28)
[2019-08-04] MEDS: Carvedilol 12.5 MG Tablet GT ×2 (09:28→19:38)
[2019-08-04] MEDS: Lidocaine/Prilocaine HCl 5 GM Tube 1 GM TOPICAL ×2 (09:28→19:40)
[2019-08-04] MEDS: Famotidine 20 MG Tablet GT (09:28)
[2019-08-04] MEDS: Losartan Potassium 100 MG Tablet GT (09:28)
[2019-08-04] MEDS: APIXABAN 5 MG TABLET GT ×2 (09:28→19:37)
[2019-08-04] MEDS: amLODIPine 10 MG Tablet PO (09:28)
[2019-08-04] MEDS: hydroCHLOROthiazide 25 MG Tablet GT (09:28)
[2019-08-04] MEDS: Flecainide 100 MG Tablet GT ×2 (09:33→19:37)
[2019-08-04] MEDS: Menthol/Lanolin/Calamine/Znox 113 GM Tube 1 APPLIC TOPICAL ×2 (09:39→19:38)
[2019-08-04] MEDS: Capsaicin 0.025% 1 APPLIC Tube TOPICAL ×2 (09:43→19:39)
[2019-08-04 09:50] VITALS: BMI 23.8
--- NOTE | 2019-08-04 13:55 | PN_ITS ---
Reason for Visit: physical debility Objective: GENERAL: Cooperative HEENT: atraumatic EYES; Anicteric, Normal Conjunctiva NECK; supple, normal thyroid, RESPIRATORY: Diminished to auscultation CARDIOVASCULAR: Irregular S1 S2, GI: soft, non-tender, normoactive bowel sounds, : No Renal angle tenderness; EXTREMITIES: No edema, no clubbing, NEURO: Awake; left sided weakness SKIN: No Rash PSYCH;flat affect Vitals/I&O's: Vital Signs Temp Pulse Resp BP Pulse Ox 97.8 F 60 18 119/70 95 08/04/19 07:00 08/04/19 07:00 08/04/19 07:00 08/04/19 07:00 08/04/19 07:00 Oxygen Delivery Method Room Air Weight: 65.7 kg Body Mass Index (BMI) 23.8 Finger Stick Blood Glucose 143 Orthostatic Vital Signs Start: 07/29/19 14:47 Freq: Status: Active Protocol: Activity Type Activity Date Activity User E-Sign Co-Sign Detail Recorded Client Recorded Date Recorded By Document 07/29/19 17:18 BL [id number] 07/29/19 17:24 BL 07/29/19 17:18 Orthostatic Vitals Standing -Blood Pressure (90/60-120/80) 134/74 H -Extremity Use Right Arm -Pulse Rate (60-100) 62 Sitting -Blood Pressure (90/60-120/80) 136/86 H -Extremity Use Right Arm -Pulse Rate (60-100) 68 Lying -Blood Pressure (90/60-120/80) 129/86 H -Extremity Use Right Arm -Pulse Rate (60-100) 67 Intake and Output for Last 24 Hours 08/02/19 08/03/19 08/04/19 23:59 23:59 23:59 Intake Total 1920 / 1920 2490 / 2490 390 / 390 Output Total 400 / 400 1175 / 1175 600 / 600 Balance 1520 / 1520 1315 / 1315 -210 / -210 Current Medications Acetaminophen (Tylenol Liquid) 1,000 mg GT TID [facility] Last Admin: 08/04/19 06:22 Dose: 1,000 mg Documented by: Amlodipine Besylate (Norvasc) 10 mg PO DAILY [facility] Last Admin: 08/04/19 09:28 Dose: 10 mg Documented by: Apixaban (Eliquis) 5 mg GT BID [facility] Last Admin: 08/04/19 09:28 Dose: 5 mg Documented by: Atorvastatin Calcium (Lipitor) 40 mg GT QHS [facility] Last Admin: 08/03/19 20:15 Dose: 40 mg Documented by: Bisacodyl (Dulcolax) 10 mg RECTAL .PRN X 1 PRN PRN Reason: Constipation Calamine/Phenol (Calmoseptine Ointment) 1 applic TOPICAL BID [facility]; Protocol Last Admin: 08/04/19 09:39 Dose: 1 applicatio Documented by: Capsaicin (Zostrix) 1 applic TOPICAL BID [facility]; Protocol Last Admin: 08/04/19 09:43 Dose: 1 applicatio Documented by: Carvedilol (Coreg) 12.5 mg GT BID [facility] Last Admin: 08/04/19 09:28 Dose: 12.5 mg Documented by: Duloxetine HCl (Cymbalta) 60 mg PO DAILY [facility] Last Admin: 08/04/19 09:28 Dose: 60 mg Documented by: Enteral Nutritional Formula (Jevity 1.5) 240 ml GT 5X/DAY [facility] Last Admin: 08/04/19 09:35 Dose: 240 ml Documented by: Famotidine (Pepcid) 20 mg GT DAILY [facility] Last Admin: 08/04/19 09:28 Dose: 20 mg Documented by: Flecainide Acetate (Tambocor) 100 mg GT BID [facility] Last Admin: 08/04/19 09:33 Dose: 100 mg Documented by: Hydrochlorothiazide (Hctz) 25 mg GT DAILY [facility] Last Admin: 08/04/19 09:28 Dose: 25 mg Documented by: Lactobacillus Acidophilus (Acidophilus) 1 tablet GT BID [facility] Last Admin: 08/04/19 09:33 Dose: 1 tablet Documented by: Latanoprost (Xalatan Opthalmic) 1 drop EACH EYE DAILY@2200 [facility] Last Admin: 08/03/19 20:16 Dose: 1 drop Documented by: Lidocaine/Prilocaine (Emla Cream W/Tegaderm) 1 gm TOPICAL BID [facility]; Protocol Last Admin: 08/04/19 09:28 Dose: 1 applicatio Documented by: Loperamide HCl (Imodium) 2 mg PO Q4H PRN PRN PRN Reason: DIARRHEA/LOOSE STOOLS Last Admin: 08/03/19 07:44 Dose: 2 mg Documented by: Losartan Potassium (Cozaar) 100 mg GT DAILY [facility] Last Admin: 08/04/19 09:28 Dose: 100 mg Documented by: Magnesium Hydroxide (Milk Of Magnesia) 30 ml PO .PRN X 1 PRN PRN Reason: Constipation Last Admin: 07/08/19 17:32 Dose: 30 ml Documented by: Multi-Ingredient Cream (Eucerin) 1 applic TOPICAL TID PRN PRN; Protocol PRN Reason: Dry Skin Potassium Chloride (Potassium Chl Soln) 20 meq GT DAILY [facility] Last Admin: 08/04/19 09:26 Dose: 20 meq Documented by: Quetiapine Fumarate (Seroquel) 37.5 mg GT DAILY@1999 [facility] Last Admin: 08/03/19 20:13 Dose: 37.5 mg Documented by: Sodium Chloride () 5 - 15 ml IV UD PRN PRN Reason: SALINE FLUSH Last Admin: 06/19/19 06:13 Dose: 10 ml Documented by: Medical Necessity - Tobacco Use Smoking Status: Never smoker Tobacco Use: Non-smoker Assessment/Plan All Active Problems (Last Reviewed 07/09/19 @ 07:57 by Kathi Shields) CVA (cerebral vascular accident) (Acute 05/2019) Patient is a 79-year-old lady admitted to the inpatient rehab unit with significant debility secondary to acute right MCA stroke with residual left- sided paralysis 1. Acute right MCA ischemic stroke with residual left-sided paralysis. Patient underwent right ICA thrombectomy subsequently transferred to the rehab unit at the [facility] patient has had a protracted stay at the inpatient rehab he needs including placement of feeding tube to stay which was complicated by aspiration pneumonia -08/04/2019 tolerated physical therapy 2. Status post PEG tube placement ~patient currently on Jevity via tube feeding 3. Hypertension ~ blood pressure controlled, home medications continued with dose adjustment as needed 4. Paroxysmal atrial fibrillation ~Patient is on flecainide was on systemic anticoagulation with Eliquis 5. Dyslipidemia ~patient is on statin therapy, continued at home dose 6. Hypokalemia ~corrected per protocol 7. Left acromioclavicular DJD with significant pain ~ status post steroid injection 8. Depression with anxiety patient is on Seroquel as well as Ativan as needed 7. DVT prophylaxis ~On apixaban Code Visit Inpatient E&M: 62399 Subs Hosp L2
[2019-08-04 14:30] VITALS: BP 127/55; PULSE 64
[2019-08-04 19:30] VITALS: RESP 20; O2SAT 94; BMI 23.8
[2019-08-04] MEDS: QUEtiapine 25 MG Tablet 37.5 MG GT (19:37)
[2019-08-04] MEDS: Atorvastatin Calcium 40 MG Tablet GT (19:38)
[2019-08-04] MEDS: Latanoprost 0.005% 1 Bottle 1 DRP EACH EYE (19:39)
[2019-08-04 21:25] VITALS: BP 133/53; PULSE 68; RESP 20; TEMP 36.3; O2SAT 94
--- NOTE | 2019-08-05 03:50 | NURSING ---
REVIEWED AND AGREE WITH SCRIPT DEVELOPER'S FUNCTIONAL ASSESSMENT AND HANDOFF CHARTING.
[2019-08-05] MEDS: Acetaminophen 650 MG/20 ML UDC 1000 MG GT ×3 (05:56→20:18)
[2019-08-05] MEDS: Jevity 1.5. 1,000 ML Bottle 240 ML GT ×5 (05:56→20:16)
[2019-08-05 07:21] VITALS: BP 124/72; PULSE 65; RESP 18; TEMP 36.5; O2SAT 94
[2019-08-05] MEDS: amLODIPine 10 MG Tablet PO (08:00)
[2019-08-05] MEDS: Losartan Potassium 100 MG Tablet GT (08:00)
[2019-08-05] MEDS: APIXABAN 5 MG TABLET GT ×2 (08:01→20:15)
[2019-08-05] MEDS: Famotidine 20 MG Tablet GT (08:01)
[2019-08-05] MEDS: Carvedilol 12.5 MG Tablet GT ×2 (08:01→20:15)
[2019-08-05] MEDS: DULoxetine Hcl 60 MG Capsule PO (08:01)
[2019-08-05] MEDS: Menthol/Lanolin/Calamine/Znox 113 GM Tube 1 APPLIC TOPICAL ×2 (08:01→20:16)
[2019-08-05] MEDS: hydroCHLOROthiazide 25 MG Tablet GT (08:02)
[2019-08-05] MEDS: Lidocaine/Prilocaine HCl 5 GM Tube 1 GM TOPICAL ×2 (08:06→20:17)
[2019-08-05] MEDS: Flecainide 100 MG Tablet GT ×2 (08:06→20:16)
--- NOTE | 2019-08-05 08:20 | PCM.PROGNOTE ---
Subjective: Rehab note Afebrile Vital signs stable Maintaining an appropriate oxygen saturation on room air. Intake and output are not accurate due to the fact that the patient is incontinent of urine Weight is stable Discussed with nursing Medication list reviewed Hospitalist notes reviewed Discussed on rounds with the rehab team and the family Family is concerned that she is still wanting to talk to her mother, father and her . When I questioned her she knows that her was 2-1/2 years ago but she still wants to talk to him. She is less agitated and she is able to summon the nurses when she has to go to the toilet. She is no longer attempting to crawl out of bed frequently. She still sees cockroaches at times. Normal bowel function Denies nausea and has had no emesis Denies pain at present but, she does have some pain occasionally of the left shoulder but, this is much less with the addition of the Zostrix to the drug regimen. - Physical Exam Vitals/I&O's: Vital Signs Temp Pulse Resp BP Pulse Ox 97.7 F L 65 18 124/72 H 94 08/05/19 07:21 08/05/19 07:21 08/05/19 07:21 08/05/19 07:21 08/05/19 07:21 Oxygen Delivery Method Room Air Weight: 144 lb 6.444 oz Body Mass Index (BMI) 23.8 Finger Stick Blood Glucose 143 Orthostatic Vital Signs Start: 07/29/19 14:47 Freq: Status: Active Protocol: Activity Type Activity Date Activity User E-Sign Co-Sign Detail Recorded Client Recorded Date Recorded By Document 07/29/19 17:18 [id number] 07/29/19 17:24 BL 07/29/19 17:18 Orthostatic Vitals Standing -Blood Pressure (90/60-120/80 mm Hg) 134/74 H -Extremity Use Right Arm -Pulse Rate (60-100 beats/min) 62 Sitting -Blood Pressure (90/60-120/80 mm Hg) 136/86 H -Extremity Use Right Arm -Pulse Rate (60-100 beats/min) 68 Lying -Blood Pressure (90/60-120/80 mm Hg) 129/86 H -Extremity Use Right Arm -Pulse Rate (60-100 beats/min) 67 Intake and Output for Last 24 Hours 08/03/19 08/04/19 08/05/19 23:59 23:59 23:59 Intake Total 2490 / 2490 3010 / 3010 390 / 390 Output Total 1175 / 1175 1500 / 1500 350 / 350 Balance 1315 / 1315 1510 / 1510 40 / 40 General: Alert, Cooperative, No apparent distress HEENT: PERRLA, EOMI Oral: No Gingival or Mucosal Lesions/ Ulcerations Neck: Supple Lungs: Clear to auscultation Cardiovascular: Regular rate, Regular Rhythm, Normal S1, Normal S2, No murmurs, No Gallop Abdomen: Bowel Sounds Present, Soft, Non Tender, Non-Distended, - - PEG site looks good with no erythema no purulent discharge. There are no openings in the skin surrounding the PEG. Extremities: No clubbing, No cyanosis, No edema Skin: No rashes, No breakdown Neurological: - - Persistent left facial droop. 5/5 strength on the Right side but, diminished strength in the LUE and the LLE. She is able to move the LLE forward without assist while ambulating now and the ataxia with the LLE has improved. Moving the LUE some now. cognitive and swallowing abilities are improving. She did have a trial of Puree but had 2 coughs and at least 5 throat clears. They will continue to work with her as the swallowing is improving Psych/Mental Status: Normal Affect, Appropriate - she is always pleasant and upbeat. No signs of depression. Current Medications Acetaminophen (Tylenol Liquid) 1,000 mg GT TID [facility] Last Admin: 08/05/19 05:56 Dose: 1,000 mg Documented by: Amlodipine Besylate (Norvasc) 10 mg PO DAILY [facility] Last Admin: 08/05/19 08:00 Dose: 10 mg Documented by: Apixaban (Eliquis) 5 mg GT BID [facility] Last Admin: 08/05/19 08:01 Dose: 5 mg Documented by: Atorvastatin Calcium (Lipitor) 40 mg GT QHS [facility] Last Admin: 08/04/19 19:38 Dose: 40 mg Documented by: Bisacodyl (Dulcolax) 10 mg RECTAL .PRN X 1 PRN PRN Reason: Constipation Calamine/Phenol (Calmoseptine Ointment) 1 applic TOPICAL BID [facility]; Protocol Last Admin: 08/05/19 08:01 Dose: 1 applicatio Documented by: Capsaicin (Zostrix) 1 applic TOPICAL BID [facility]; Protocol Last Admin: 08/04/19 19:39 Dose: 1 applicatio Documented by: Carvedilol (Coreg) 12.5 mg GT BID [facility] Last Admin: 08/05/19 08:01 Dose: 12.5 mg Documented by: Duloxetine HCl (Cymbalta) 60 mg PO DAILY [facility] Last Admin: 08/05/19 08:01 Dose: 60 mg Documented by: Enteral Nutritional Formula (Jevity 1.5) 240 ml GT 5X/DAY [facility] Last Admin: 08/05/19 05:56 Dose: 240 ml Documented by: Famotidine (Pepcid) 20 mg GT DAILY [facility] Last Admin: 08/05/19 08:01 Dose: 20 mg Documented by: Flecainide Acetate (Tambocor) 100 mg GT BID [facility] Last Admin: 08/05/19 08:06 Dose: 100 mg Documented by: Hydrochlorothiazide (Hctz) 25 mg GT DAILY [facility] Last Admin: 08/05/19 08:02 Dose: 25 mg Documented by: Lactobacillus Acidophilus (Acidophilus) 1 tablet GT BID [facility] Last Admin: 08/05/19 08:01 Dose: 1 tablet Documented by: Latanoprost (Xalatan Opthalmic) 1 drop EACH EYE DAILY@2200 [facility] Last Admin: 08/04/19 19:39 Dose: 1 drop Documented by: Lidocaine/Prilocaine (Emla Cream W/Tegaderm) 1 gm TOPICAL BID [facility]; Protocol Last Admin: 08/05/19 08:06 Dose: 1 applicatio Documented by: Loperamide HCl (Imodium) 2 mg PO Q4H PRN PRN PRN Reason: DIARRHEA/LOOSE STOOLS Last Admin: 08/03/19 07:44 Dose: 2 mg Documented by: Losartan Potassium (Cozaar) 100 mg GT DAILY [facility] Last Admin: 08/05/19 08:00 Dose: 100 mg Documented by: Magnesium Hydroxide (Milk Of Magnesia) 30 ml PO .PRN X 1 PRN PRN Reason: Constipation Last Admin: 07/08/19 17:32 Dose: 30 ml Documented by: Multi-Ingredient Cream (Eucerin) 1 applic TOPICAL TID PRN PRN; Protocol PRN Reason: Dry Skin Potassium Chloride (Potassium Chl Soln) 20 meq GT DAILY [facility] Last Admin: 08/05/19 08:00 Dose: 20 meq Documented by: Quetiapine Fumarate (Seroquel) 37.5 mg GT DAILY@1999 [facility] Last Admin: 08/04/19 19:37 Dose: 37.5 mg Documented by: Sodium Chloride () 5 - 15 ml IV UD PRN PRN Reason: SALINE FLUSH Last Admin: 06/19/19 06:13 Dose: 10 ml Documented by: Medical Necessity - Tobacco Use Smoking Status: Never smoker Tobacco Use: Non-smoker Assessment/Plan All Active Problems (Last Reviewed 07/09/19 @ 07:57 by Kathi Shields) CVA (cerebral vascular accident) (Acute 05/2019) Impressions 1. 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 Patient is status thrombectomy on 05/23/[address] [facility] [address] Doll. 2. AF - on Flecanide and Coreg. 3. chronic anticoagulation with Eliquis 4. Last ECHO at [facility] with an estimated PA systolic of 60 but, recent TAMERA at [facility] states the PA pressure was 40-45. this is consistent with mild Pulmonary HTN. the EF was 65-70% 5. Dysphagia due to CVA 6. DM II - blood sugars are controlled. HGBA1C is 6.4%. 7. HLD - on atorvastatin 40 mg daily. The last LDL recorded was 116 which is too high. Will need to repeat a liver panel and lipid panel 8. Oiprcnhkyppk-slet-mbumviwuyk. ? whether she needs HCTZ? The BUN/CREAT ratio is quite high. Will check orthostatic VS's and if she is orthostatic will DC the HCTZ. In addition to hydrochlorothiazide she is also receiving losartan, amlodipine and Coreg for blood pressure control. 9. CAD 10. S/P PM 11. Anxiety/depression 12. Visual hallucinations.......seem to be improving with the increase in the Seroquel and so does her ability to focus but, not the hallucinations are not completely gone......discussed with the family and the pt and family are agreeable to an increase in the dose of Seroquel to 50 mg at HS to see if the hallucinations improve more. If she becomes more somnolent or can not focus will go back to the 37.5mg. 13. S/P PEG 06/13/2019. 14. mild - moderate Pulmonary HTN - etiology? 15. Hx of iron deficiency anemia - has seen hematology in the past. HGB has been stable 16. OA with Left shoulder pain - injected by ortho but the pain recurred in a few days......started on EMLA cream and Zostrix and the pain improved significantly 79-year-old female with a past medical history of atrial fibrillation, chronic anticoagulation with Eliquis, diabetes mellitus type 2, hyperlipidemia, hypertension, coronary artery disease, sick sinus syndrome with pacemaker implantation, anxiety/depression and mild to moderate pulmonary hypertension admitted to the inpatient rehab unit at [facility] or debility secondary to a right MCA ischemic CVA on 05/23/2019 secondary to thrombus in the right MCA with small scattered hemorrhage. She is status thrombectomy on 05/23/[address] [facility] [address] Doll. Currently n.p.o. and is receiving PEG tube feedings. PT for gait stability OT for ADLs Speech therapy PEG placement 06/13/2019-remains n.p.o. Anxiety/depression on Cymbalta Visual hallucinations-on Seroquel very alert on Seroquel now and although the hallucinations are still there she is not bothered by them Analgesics as needed Bowel protocol Follow-up with Dr. Harrison, PCP, neurology, cardiology at [place]. Will likely need to go to a SNF for ongoing PT/OT/ST at [place] Check CBC, magnesium, phosphorus, BMP in the a.m. while on tube feed Code Visit Inpatient E&M: 20058 Subs Hosp L2
[2019-08-05] MEDS: Capsaicin 0.025% 1 APPLIC Tube TOPICAL ×2 (08:30→20:18)
--- NOTE | 2019-08-05 10:36 | CASEMGMT ---
Social Work IDT met with patient, daughter and son for Team Meeting. Discussed patient's progress in therapy. Pt is mod to max x1 for transfers, walking 20 ft wall rail at mod assist without need of slipper sock on shoe, less leaning, and more accurate with foot placement. Max assist for bathing, min grooming, max UE dressing, total LE dressing and toileting. ST is working on left visual neglect, scanning - which varies in accuracy, still impulsive, working on swallowing exercises and puree trials; which is improving. Nursing is noticing improvement with continence, behaviors and able to focus better - using max x2 to transfer. Discussed hallucinations and Seroquel dose at length - family agreeable to physician increasing dose 12.5 mg. Explained insurance update 08/06 and continued stay is not guaranteed. Reiterated conversation with insurance C.M. IDT recommending continued therapy at this time as pt has improved since last update, and to monitor for new change in medication. Will ReTeam next week. Discharge plan continues to remain transfer to SNF - [facility] or [facility]. Shannan Mcclellan, NBA LOVEW
[2019-08-05 14:57] VITALS: BMI 23.8
[2019-08-05 20:05] VITALS: BP 124/71; PULSE 65; RESP 16; TEMP 36.6; O2SAT 95
[2019-08-05 20:15] VITALS: PULSE 65; RESP 16; O2SAT 95
[2019-08-05] MEDS: QUEtiapine 25 MG Tablet 50 MG GT (20:15)
[2019-08-05] MEDS: Atorvastatin Calcium 40 MG Tablet GT (20:15)
[2019-08-05] MEDS: Latanoprost 0.005% 1 Bottle 1 DRP EACH EYE (20:18)
[2019-08-05 21:15] VITALS: BMI 23.8
[2019-08-06] MEDS: Jevity 1.5. 1,000 ML Bottle 240 ML GT ×5 (05:00→20:23)
[2019-08-06] MEDS: Acetaminophen 650 MG/20 ML UDC 1000 MG GT ×3 (05:00→20:22)
[2019-08-06 06:09] LABS: Hemoglobin 11.6 g/dL (12.0-15.0); Mean Corp Hgb Conc 32.2 g/dL (32-36); Mean Platelet Vol. 10.6 fl (6.2-12.0); Platelet Count 247 K/mm3 (150-450); RBC Distribution Width CV 14.6 % (11.6-14.6); RBC Distribution Width SD 49.6 fl (35.1-43.9); Red Blood Count 3.87 M/mm3 (4.2-5.4); White Blood Count 4.9 K/mm3 (4.4-11.0)
[2019-08-06 06:31] LABS: Anion Gap 5 (5-15); BUN 31 mg/dL (7-18); BUN/Creat Ratio 32.8 RATIO (10-20); Calcium,Total 9.1 mg/dL (8.5-10.1); Chloride 98 mmol/L (98-107); Creatinine, Serum 0.94 mg/dL (0.55-1.02); EST Glomerular Filtration Rate 61 mL/min (>60); Est Glom Filt Rate - Afr Amer 74 mL/min (>60); Estimated Creatinine Clearance 47.97 ml/min; Glucose 165 mg/dL (74-106); Magnesium 2.2 mg/dL (1.6-2.6); Phosphorus 3.5 mg/dL (2.5-4.9); Potassium 3.4 mmol/L (3.5-5.1); Sodium Level 138 mmol/L (136-145)
[2019-08-06 07:14] VITALS: BP 125/74; PULSE 64; RESP 16; TEMP 36.6; O2SAT 97
--- NOTE | 2019-08-06 08:44 | PCM.PROGNOTE ---
Subjective: Afebile VSS Maintaining appropriate oxygen saturation on to 97% TF without residuals Discussed with nursing - no problems that need addressed Reviewed the PT/OT/ST notes Medication list reviewed. All lab was personally reviewed. Hemoglobin continues to improve and is 11.6 today, up from 11.2 on 07/14/2019. Platelets and white blood cell count are within normal limits. Potassium is mildly decreased at 3.4 and the serum bicarb is 35. BUN is 31 with a creatinine of 0.94 and this is stable. Fasting blood sugar today is 165. Hemoglobin A1c on 07/08/2019 was 6.4. She continues to complain of Left shoulder pain but it is better than before since the Zostrix was started. She has a sling but is not wearing it often and the Left arm is flopping around when she is trying to move it with her right arm. Sleeping well. She received the first dose of Seroquel 50 mg last night and she is alert and appropriate this AM. She is oriented to person, place, month and year. Did not mention cockroaches today. She is starting to have tingling in the left hand and the left distal leg. - Physical Exam Vitals/I&O's: Vital Signs Temp Pulse Resp BP Pulse Ox 97.9 F 64 16 125/74 H 97 08/06/19 07:14 08/06/19 07:14 08/06/19 07:14 08/06/19 07:14 08/06/19 07:14 Oxygen Delivery Method Room Air Weight: 144 lb 6.444 oz Body Mass Index (BMI) 23.8 Finger Stick Blood Glucose 143 Orthostatic Vital Signs Start: 07/29/19 14:47 Freq: Status: Active Protocol: Activity Type Activity Date Activity User E-Sign Co-Sign Detail Recorded Client Recorded Date Recorded By Document 07/29/19 17:18 BL [id number] 07/29/19 17:24 BL 07/29/19 17:18 Orthostatic Vitals Standing -Blood Pressure (90/60-120/80 mm Hg) 134/74 H -Extremity Use Right Arm -Pulse Rate (60-100 beats/min) 62 Sitting -Blood Pressure (90/60-120/80 mm Hg) 136/86 H -Extremity Use Right Arm -Pulse Rate (60-100 beats/min) 68 Lying -Blood Pressure (90/60-120/80 mm Hg) 129/86 H -Extremity Use Right Arm -Pulse Rate (60-100 beats/min) 67 Intake and Output for Last 24 Hours 08/04/19 08/05/19 08/06/19 23:59 23:59 23:59 Intake Total 3010 / 3010 2910 / 2910 780 / 780 Output Total 1500 / 1500 1875 / 1875 200 / 200 Balance 1510 / 1510 1035 / 1035 580 / 580 General: Alert, Oriented x3, Cooperative, No apparent distress, Well developed, Well nourished HEENT: PERRLA Oral: Dry Mucosa Neck: Supple, No JVD Lungs: Clear to auscultation, Normal air movement Cardiovascular: Regular rate, Regular Rhythm, Normal S1, Normal S2, No murmurs, No Gallop Abdomen: Bowel Sounds Present, Soft, Non Tender, Non-Distended, - - The PEG site is clean and has no purulent DC or erythema. It is not painful Extremities: No edema Skin: No rashes, No breakdown Neurological: - - Persistent Left facial droop. speech is intelligible. the LUE is 1/5 but the LLE has improved significantly and is currently 4/5 per my exam. Strength on the right side is 5/5 in the UE and the LE. Psych/Mental Status: Normal Affect, Appropriate Laboratory Results 08/06/19 05:46: WBC 4.9, RBC 3.87 L, Hgb 11.6 L, Hct 36.0 L, MCV 93.0, MCH 30.0, MCHC 32.2, RDW Std Deviation 49.6 H, RDW Coeff of Keyur 14.6, Plt Count 247, MPV 10.6 08/06/19 05:46: Sodium 138, Potassium 3.4 L, Chloride 98, Carbon Dioxide 35.0 H, Anion Gap 5, BUN 31 H, Creatinine 0.94, Estim Creat Clear Calc 47.97, Est GFR (MDRD) Af Amer 74, Est GFR (MDRD) Non-Af 61, BUN/Creatinine Ratio 32.8 H, Glucose 165 H, Calcium 9.1, Phosphorus 3.5, Magnesium 2.2 Current Medications Acetaminophen (Tylenol Liquid) 1,000 mg GT TID [facility] Last Admin: 08/06/19 05:00 Dose: 1,000 mg Documented by: Amlodipine Besylate (Norvasc) 10 mg PO DAILY [facility] Last Admin: 08/05/19 08:00 Dose: 10 mg Documented by: Apixaban (Eliquis) 5 mg GT BID [facility] Last Admin: 08/05/19 20:15 Dose: 5 mg Documented by: Atorvastatin Calcium (Lipitor) 40 mg GT QHS [facility] Last Admin: 08/05/19 20:15 Dose: 40 mg Documented by: Bisacodyl (Dulcolax) 10 mg RECTAL .PRN X 1 PRN PRN Reason: Constipation Calamine/Phenol (Calmoseptine Ointment) 1 applic TOPICAL BID [facility]; Protocol Last Admin: 08/05/19 20:16 Dose: 1 applicatio Documented by: Capsaicin (Zostrix) 1 applic TOPICAL BID [facility]; Protocol Last Admin: 08/05/19 20:18 Dose: 1 applicatio Documented by: Carvedilol (Coreg) 12.5 mg GT BID [facility] Last Admin: 08/05/19 20:15 Dose: 12.5 mg Documented by: Duloxetine HCl (Cymbalta) 60 mg PO DAILY [facility] Last Admin: 08/05/19 08:01 Dose: 60 mg Documented by: Enteral Nutritional Formula (Jevity 1.5) 240 ml GT 5X/DAY [facility] Last Admin: 08/06/19 05:00 Dose: 240 ml Documented by: Famotidine (Pepcid) 20 mg GT DAILY [facility] Last Admin: 08/05/19 08:01 Dose: 20 mg Documented by: Flecainide Acetate (Tambocor) 100 mg GT BID [facility] Last Admin: 08/05/19 20:16 Dose: 100 mg Documented by: Hydrochlorothiazide (Hctz) 25 mg GT DAILY [facility] Last Admin: 08/05/19 08:02 Dose: 25 mg Documented by: Lactobacillus Acidophilus (Acidophilus) 1 tablet GT BID [facility] Last Admin: 08/05/19 20:16 Dose: 1 tablet Documented by: Latanoprost (Xalatan Opthalmic) 1 drop EACH EYE DAILY@2200 [facility] Last Admin: 08/05/19 20:18 Dose: 1 drop Documented by: Lidocaine/Prilocaine (Emla Cream W/Tegaderm) 1 gm TOPICAL BID [facility]; Protocol Last Admin: 08/05/19 20:17 Dose: 1 applicatio Documented by: Loperamide HCl (Imodium) 2 mg PO Q4H PRN PRN PRN Reason: DIARRHEA/LOOSE STOOLS Last Admin: 08/03/19 07:44 Dose: 2 mg Documented by: Losartan Potassium (Cozaar) 100 mg GT DAILY [facility] Last Admin: 08/05/19 08:00 Dose: 100 mg Documented by: Magnesium Hydroxide (Milk Of Magnesia) 30 ml PO .PRN X 1 PRN PRN Reason: Constipation Last Admin: 07/08/19 17:32 Dose: 30 ml Documented by: Multi-Ingredient Cream (Eucerin) 1 applic TOPICAL TID PRN PRN; Protocol PRN Reason: Dry Skin Potassium Chloride (Potassium Chl Soln) 20 meq GT DAILY [facility] Last Admin: 08/05/19 08:00 Dose: 20 meq Documented by: Quetiapine Fumarate (Seroquel) 50 mg GT DAILY@1999 [facility] Last Admin: 08/05/19 20:15 Dose: 50 mg Documented by: Sodium Chloride () 5 - 15 ml IV UD PRN PRN Reason: SALINE FLUSH Last Admin: 06/19/19 06:13 Dose: 10 ml Documented by: Medical Necessity - Tobacco Use Smoking Status: Never smoker Tobacco Use: Non-smoker Assessment/Plan All Active Problems (Last Reviewed 07/09/19 @ 07:57 by Kathi Shields) CVA (cerebral vascular accident) (Acute 05/2019) Impressions 1. 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 Patient is status thrombectomy on 05/23/[address] [facility] [address] Doll. 2. AF - on Flecanide and Coreg. 3. chronic anticoagulation with Eliquis 4. Last ECHO at [facility] with an estimated PA systolic of 60 but, recent TAMERA at [facility] states the PA pressure was 40-45. this is consistent with mild Pulmonary HTN. the EF was 65-70% 5. Dysphagia due to CVA 6. DM II - blood sugars are controlled. HGBA1C is 6.4%. BS this AM was 164 which is higher than it has been.....will check BS BID for the next few days and if none > 180 will DC accuchecks again. 7. HLD - on atorvastatin 40 mg daily. The last LDL recorded was 116 which is too high. Will need to repeat a liver panel and lipid panel 8. Cgodrvgagdia-lrzh-azteejubhn. ? whether she needs HCTZ? The BUN/CREAT ratio is quite high. Will check orthostatic VS's and if she is orthostatic will DC the HCTZ. In addition to hydrochlorothiazide she is also receiving losartan, amlodipine and Coreg for blood pressure control. 9. CAD 10. S/P PM 11. Anxiety/depression 12. Visual hallucinations.......seem to be improving with the increase in the Seroquel and so does her ability to focus but, the hallucinations are not completely gone......discussed with the family and the pt and family are agreeable to an increase in the dose of Seroquel to 50 mg at HS to see if the hallucinations improve more. If she becomes more somnolent or can not focus will go back to the 37.5mg. 13. S/P PEG 06/13/2019. 14. mild - moderate Pulmonary HTN - etiology? 15. Hx of iron deficiency anemia - has seen hematology in the past. HGB has been stable 16. OA with Left shoulder pain - injected by ortho but the pain recurred in a few days......started on EMLA cream and Zostrix and the pain improved significantly but, is still present. discussed with OT and pt has a sling but she is not using it. Will try a different type sling that will restrict movement of the L shoulder/arm when she is not doing therapy. Will also increase the Zostrix to TID 17. Hypokalemia - potassium supplement increased to 20 MEQ BID. Will recheck in a few days. 18. Metabolic alkalosis-more likely than not secondary to hydrochlorothiazide and hypokalemia. Will discontinue hydrochlorothiazide and recheck BMP in 2 days. 79-year-old female with a past medical history of atrial fibrillation, chronic anticoagulation with Eliquis, diabetes mellitus type 2, hyperlipidemia, hypertension, coronary artery disease, sick sinus syndrome with pacemaker implantation, anxiety/depression and mild to moderate pulmonary hypertension admitted to the inpatient rehab unit at [facility] or debility secondary to a right MCA ischemic CVA on 05/23/2019 secondary to thrombus in the right MCA with small scattered hemorrhage. She is status thrombectomy on 05/23/[address] [facility] [address] Doll. Currently n.p.o. and is receiving PEG tube feedings. PT for gait stability OT for ADLs Speech therapy PEG placement 06/13/2019-remains n.p.o. Anxiety/depression on Cymbalta Visual hallucinations-on Seroquel very alert on Seroquel now and although the hallucinations are still there she is not bothered by them - Seroquel increased to 50 mg Q HS on 08/05/19 and she is tolerating without excessive sleepiness so will continue Analgesics as needed Bowel protocol Follow-up with Dr. Harrison, PCP, neurology, cardiology at [place]. Will likely need to go to a SNF for ongoing PT/OT/ST at [facility] Check CBC, magnesium, phosphorus, BMP in the a.m. while on tube feed Code Visit Inpatient E&M: 56605 Subs Hosp L2
[2019-08-06] MEDS: amLODIPine 10 MG Tablet PO (10:22)
[2019-08-06] MEDS: Flecainide 100 MG Tablet GT ×2 (10:22→20:25)
[2019-08-06] MEDS: APIXABAN 5 MG TABLET GT ×2 (10:22→20:24)
[2019-08-06] MEDS: DULoxetine Hcl 60 MG Capsule PO (10:22)
[2019-08-06] MEDS: Carvedilol 12.5 MG Tablet GT ×2 (10:22→20:24)
[2019-08-06] MEDS: Famotidine 20 MG Tablet GT (10:22)
[2019-08-06] MEDS: Losartan Potassium 100 MG Tablet GT (10:22)
[2019-08-06] MEDS: Lidocaine/Prilocaine HCl 5 GM Tube 1 GM TOPICAL ×2 (10:23→20:21)
[2019-08-06] MEDS: Menthol/Lanolin/Calamine/Znox 113 GM Tube 1 APPLIC TOPICAL ×2 (10:47→20:22)
[2019-08-06] MEDS: Capsaicin 0.025% 1 APPLIC Tube TOPICAL ×3 (10:52→20:26)
[2019-08-06 11:43] VITALS: BMI 23.8
[2019-08-06 17:31] LABS: Bedside Glucose 121 mg/dL (70-110)
[2019-08-06 20:19] VITALS: BP 137/86; PULSE 69; RESP 18; TEMP 36.6; O2SAT 99
[2019-08-06 20:20] VITALS: PULSE 69; RESP 18; O2SAT 94; BMI 23.8
[2019-08-06] MEDS: Latanoprost 0.005% 1 Bottle 1 DRP EACH EYE (20:23)
[2019-08-06] MEDS: QUEtiapine 25 MG Tablet 50 MG GT (20:23)
[2019-08-06] MEDS: Atorvastatin Calcium 40 MG Tablet GT (20:23)
[2019-08-07] MEDS: Jevity 1.5. 1,000 ML Bottle 240 ML GT ×5 (06:37→20:44)
[2019-08-07] MEDS: Acetaminophen 650 MG/20 ML UDC 1000 MG GT ×3 (06:37→20:45)
[2019-08-07] MEDS: Capsaicin 0.025% 1 APPLIC Tube TOPICAL ×3 (06:48→20:46)
[2019-08-07 07:05] LABS: Bedside Glucose 111 mg/dL (70-110)
[2019-08-07 09:18] VITALS: BP 124/74; PULSE 62; RESP 16; TEMP 36.6; O2SAT 95
[2019-08-07] MEDS: Lidocaine/Prilocaine HCl 5 GM Tube 1 GM TOPICAL ×2 (10:24→20:44)
[2019-08-07] MEDS: Famotidine 20 MG Tablet GT (10:27)
[2019-08-07] MEDS: APIXABAN 5 MG TABLET GT ×2 (10:27→20:44)
[2019-08-07] MEDS: DULoxetine Hcl 60 MG Capsule PO (10:27)
[2019-08-07] MEDS: Carvedilol 12.5 MG Tablet GT ×2 (10:27→20:44)
[2019-08-07] MEDS: Menthol/Lanolin/Calamine/Znox 113 GM Tube 1 APPLIC TOPICAL ×2 (10:27→20:43)
[2019-08-07] MEDS: amLODIPine 10 MG Tablet PO (10:27)
[2019-08-07] MEDS: Flecainide 100 MG Tablet GT ×2 (10:27→20:45)
[2019-08-07] MEDS: Losartan Potassium 100 MG Tablet GT (10:27)
[2019-08-07 15:24] VITALS: BMI 23.8
[2019-08-07 17:30] LABS: Bedside Glucose 146 mg/dL (70-110)
[2019-08-07 19:29] VITALS: BP 128/70; PULSE 65; RESP 16; TEMP 36.5; O2SAT 97
--- NOTE | 2019-08-07 19:45 | NURSING ---
while pt was visiting with daughter, pt called out to use the restroom. upon conversing, pt asked this nurse to see her Rosalio. daughter tells pt mom, dad 2 and a half years ago. pt became very upset and yelled at her daughter. pt asks staff again about and this nurse redirects pt to another subject. daughter was not upset about the incident, very understanding. will continue to try to reorient pt.
[2019-08-07] MEDS: QUEtiapine 25 MG Tablet 50 MG GT (20:43)
[2019-08-07] MEDS: Latanoprost 0.005% 1 Bottle 1 DRP EACH EYE (20:45)
[2019-08-07] MEDS: Atorvastatin Calcium 40 MG Tablet GT (20:45)
[2019-08-08 00:16] VITALS: BMI 23.8
[2019-08-08] MEDS: Acetaminophen 650 MG/20 ML UDC 1000 MG GT ×3 (06:34→20:02)
[2019-08-08] MEDS: Jevity 1.5. 1,000 ML Bottle 240 ML GT ×5 (06:35→20:03)
[2019-08-08] MEDS: Capsaicin 0.025% 1 APPLIC Tube TOPICAL ×3 (06:38→20:02)
[2019-08-08 06:56] LABS: Bedside Glucose 97 mg/dL (70-110)
[2019-08-08 07:26] LABS: Anion Gap 3 (5-15); BUN 30 mg/dL (7-18); BUN/Creat Ratio 32.7 RATIO (10-20); Calcium,Total 9.8 mg/dL (8.5-10.1); Chloride 106 mmol/L (98-107); Creatinine, Serum 0.92 mg/dL (0.55-1.02); EST Glomerular Filtration Rate 63 mL/min (>60); Est Glom Filt Rate - Afr Amer 76 mL/min (>60); Estimated Creatinine Clearance 49.01 ml/min; Glucose 101 mg/dL (74-106); Potassium 4.6 mmol/L (3.5-5.1); Sodium Level 141 mmol/L (136-145)
[2019-08-08 08:25] VITALS: BP 141/78; PULSE 67; RESP 16; TEMP 36.7; O2SAT 98
[2019-08-08] MEDS: Carvedilol 12.5 MG Tablet GT ×2 (09:56→20:01)
[2019-08-08] MEDS: Loperamide 2 MG Capsule PO (09:56)
[2019-08-08] MEDS: Menthol/Lanolin/Calamine/Znox 113 GM Tube 1 APPLIC TOPICAL ×2 (09:56→20:01)
[2019-08-08] MEDS: APIXABAN 5 MG TABLET GT ×2 (09:57→20:01)
[2019-08-08] MEDS: Losartan Potassium 100 MG Tablet GT (09:57)
[2019-08-08] MEDS: DULoxetine Hcl 60 MG Capsule PO (09:57)
[2019-08-08] MEDS: Flecainide 100 MG Tablet GT ×2 (09:58→20:02)
[2019-08-08] MEDS: Famotidine 20 MG Tablet GT (09:58)
[2019-08-08] MEDS: amLODIPine 10 MG Tablet PO (09:58)
[2019-08-08] MEDS: Lidocaine/Prilocaine HCl 5 GM Tube 1 GM TOPICAL ×2 (14:12→20:01)
[2019-08-08 14:53] VITALS: BMI 23.8
[2019-08-08 17:46] LABS: Bedside Glucose 113 mg/dL (70-110)
[2019-08-08] MEDS: QUEtiapine 25 MG Tablet 50 MG GT (20:00)
[2019-08-08] MEDS: Atorvastatin Calcium 40 MG Tablet GT (20:02)
[2019-08-08] MEDS: Latanoprost 0.005% 1 Bottle 1 DRP EACH EYE (20:02)
[2019-08-08 22:00] VITALS: BP 139/70; PULSE 64; RESP 16; TEMP 37.1; O2SAT 97
[2019-08-09 00:16] VITALS: BMI 23.8
--- NOTE | 2019-08-09 04:52 | NURSING ---
Reviewed and agree with LPNs handoff
[2019-08-09] MEDS: Capsaicin 0.025% 1 APPLIC Tube TOPICAL ×3 (05:28→20:30)
[2019-08-09] MEDS: Jevity 1.5. 1,000 ML Bottle 240 ML GT ×5 (05:28→20:29)
[2019-08-09] MEDS: Acetaminophen 650 MG/20 ML UDC 1000 MG GT ×3 (05:28→20:29)
[2019-08-09 06:26] LABS: Bedside Glucose 164 mg/dL (70-110)
[2019-08-09 07:00] VITALS: BP 122/72; PULSE 67; RESP 18; TEMP 36.7; O2SAT 96
[2019-08-09] MEDS: Flecainide 100 MG Tablet GT ×2 (11:06→20:29)
[2019-08-09] MEDS: Losartan Potassium 100 MG Tablet GT (11:06)
[2019-08-09] MEDS: DULoxetine Hcl 60 MG Capsule PO (11:06)
[2019-08-09] MEDS: amLODIPine 10 MG Tablet PO (11:06)
[2019-08-09] MEDS: Famotidine 20 MG Tablet GT (11:06)
[2019-08-09] MEDS: Menthol/Lanolin/Calamine/Znox 113 GM Tube 1 APPLIC TOPICAL ×2 (11:07→20:27)
[2019-08-09] MEDS: Carvedilol 12.5 MG Tablet GT ×2 (11:07→20:28)
[2019-08-09] MEDS: APIXABAN 5 MG TABLET GT ×2 (11:07→20:28)
[2019-08-09 12:24] VITALS: BMI 23.8
[2019-08-09] MEDS: Lidocaine/Prilocaine HCl 5 GM Tube 1 GM TOPICAL ×2 (15:21→20:28)
[2019-08-09 16:55] LABS: Bedside Glucose 178 mg/dL (70-110)
[2019-08-09] MEDS: QUEtiapine 25 MG Tablet 50 MG GT (20:27)
[2019-08-09] MEDS: Atorvastatin Calcium 40 MG Tablet GT (20:29)
[2019-08-09] MEDS: Latanoprost 0.005% 1 Bottle 1 DRP EACH EYE (20:30)
[2019-08-09 20:37] VITALS: BP 138/72; PULSE 60; RESP 16; TEMP 37.1; O2SAT 97
--- NOTE | 2019-08-09 21:58 | PCM.PN.BLA ---
Progress Note Afebrile Vital signs stable-blood pressure well controlled Maintaining appropriate oxygen saturation on room air No residuals with tube feed Tolerating increase in the Seroquel to 50 mg nightly, but unfortunately continues to have some hallucinations. Blood sugars are well controlled Alert, oriented x3 but seems more confused today. She thinks we are keeping her from seeing her family. Not somnolent. Lungs-clear to auscultation Heart-regular rate and rhythm, no murmurs, no gallop Abdomen-soft, nontender, nondistended, bowel sounds present, PEG site is clean and free of erythema or purulent discharge. No peripheral edema No rashes 1. 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 Patient is status thrombectomy on 05/23/[address] [facility] [address] Doll. She is progressing with therapy. 2. Delirium with visual hallucinations post CVA. tolerating the Increase in the Seroquel but, hallucinations do not seem to be improving 3. Dysphagia-on [place] water 4. Diabetes mellitus type 2-blood sugars are well controlled. Continue current treatment Recheck lab on 08/15/2019 Will discuss once again at team meeting on 08/12/2019 hallucinations and Seroquel with her family. STROKE Vital Signs/Narrative: Vital Signs Temp Pulse Resp BP Pulse Ox 08/09/19 20:37 98.7 F 60 16 138/72 H 97 Code Visit Inpatient E&M: 42134 Subs Hosp L1
[2019-08-10 00:53] VITALS: BMI 23.8
[2019-08-10] MEDS: Acetaminophen 650 MG/20 ML UDC 1000 MG GT ×3 (06:33→19:48)
[2019-08-10] MEDS: Jevity 1.5. 1,000 ML Bottle 240 ML GT ×5 (06:33→19:45)
[2019-08-10] MEDS: Capsaicin 0.025% 1 APPLIC Tube TOPICAL ×3 (06:34→19:52)
--- NOTE | 2019-08-10 06:40 | NURSING ---
Reviewed and agree with LPNs handoff
[2019-08-10 06:45] LABS: Bedside Glucose 96 mg/dL (70-110)
[2019-08-10 07:58] VITALS: BP 136/82; PULSE 63; RESP 18; TEMP 36.7; O2SAT 97
[2019-08-10] MEDS: Menthol/Lanolin/Calamine/Znox 113 GM Tube 1 APPLIC TOPICAL ×2 (10:00→19:46)
[2019-08-10] MEDS: Carvedilol 12.5 MG Tablet GT ×2 (10:08→19:43)
[2019-08-10] MEDS: Losartan Potassium 100 MG Tablet GT (10:08)
[2019-08-10] MEDS: DULoxetine Hcl 60 MG Capsule PO (10:09)
[2019-08-10] MEDS: APIXABAN 5 MG TABLET GT ×2 (10:09→19:44)
[2019-08-10] MEDS: amLODIPine 10 MG Tablet PO (10:10)
[2019-08-10] MEDS: Flecainide 100 MG Tablet GT ×2 (10:11→19:48)
[2019-08-10] MEDS: Famotidine 20 MG Tablet GT (10:11)
[2019-08-10] MEDS: Lidocaine/Prilocaine HCl 5 GM Tube 1 GM TOPICAL ×3 (10:39→19:45)
[2019-08-10 17:00] VITALS: BMI 23.8
[2019-08-10 18:51] LABS: Bedside Glucose 176 mg/dL (70-110)
[2019-08-10 19:25] VITALS: BP 119/64; PULSE 66; RESP 18; TEMP 37.1; O2SAT 96
[2019-08-10] MEDS: QUEtiapine 25 MG Tablet 50 MG GT (19:42)
[2019-08-10] MEDS: Atorvastatin Calcium 40 MG Tablet GT (19:45)
[2019-08-10] MEDS: Latanoprost 0.005% 1 Bottle 1 DRP EACH EYE (19:51)
[2019-08-10 20:25] VITALS: BMI 23.8
[2019-08-10 22:00] VITALS: PULSE 66; RESP 18; O2SAT 96
[2019-08-11] MEDS: Acetaminophen 650 MG/20 ML UDC 1000 MG GT ×3 (05:21→19:42)
[2019-08-11] MEDS: Capsaicin 0.025% 1 APPLIC Tube TOPICAL ×3 (05:21→19:40)
[2019-08-11] MEDS: Jevity 1.5. 1,000 ML Bottle 240 ML GT ×5 (05:22→19:43)
[2019-08-11] MEDS: Lidocaine/Prilocaine HCl 5 GM Tube 1 GM TOPICAL ×3 (05:23→19:44)
[2019-08-11 07:05] LABS: Bedside Glucose 170 mg/dL (70-110)
[2019-08-11 07:19] VITALS: BP 138/84; PULSE 61; RESP 17; TEMP 36.8; O2SAT 98
[2019-08-11 09:32] VITALS: BMI 23.8
[2019-08-11] MEDS: Losartan Potassium 100 MG Tablet GT (10:13)
[2019-08-11] MEDS: amLODIPine 10 MG Tablet PO (10:13)
[2019-08-11] MEDS: APIXABAN 5 MG TABLET GT ×2 (10:13→19:44)
[2019-08-11] MEDS: Famotidine 20 MG Tablet GT (10:13)
[2019-08-11] MEDS: Carvedilol 12.5 MG Tablet GT ×2 (10:13→19:44)
[2019-08-11] MEDS: Flecainide 100 MG Tablet GT ×2 (10:13→19:42)
[2019-08-11] MEDS: DULoxetine Hcl 60 MG Capsule PO (10:13)
[2019-08-11] MEDS: Menthol/Lanolin/Calamine/Znox 113 GM Tube 1 APPLIC TOPICAL ×2 (10:28→19:44)
[2019-08-11 15:00] VITALS: BP 140/70
[2019-08-11 17:01] LABS: Bedside Glucose 111 mg/dL (70-110)
[2019-08-11 19:32] VITALS: BP 130/75; PULSE 63; RESP 18; TEMP 36.5; O2SAT 96
[2019-08-11] MEDS: Latanoprost 0.005% 1 Bottle 1 DRP EACH EYE (19:41)
[2019-08-11] MEDS: Atorvastatin Calcium 40 MG Tablet GT (19:43)
[2019-08-11] MEDS: QUEtiapine 25 MG Tablet 50 MG GT (19:45)
[2019-08-11 20:26] VITALS: BMI 23.8
[2019-08-11 22:00] VITALS: PULSE 63; RESP 17; O2SAT 96
[2019-08-12] MEDS: Acetaminophen 650 MG/20 ML UDC 1000 MG GT ×3 (06:17→20:11)
[2019-08-12] MEDS: Jevity 1.5. 1,000 ML Bottle 240 ML GT ×5 (06:22→20:10)
[2019-08-12] MEDS: Capsaicin 0.025% 1 APPLIC Tube TOPICAL ×3 (06:22→20:17)
[2019-08-12] MEDS: Lidocaine/Prilocaine HCl 5 GM Tube 1 GM TOPICAL ×3 (06:22→20:07)
[2019-08-12 06:55] LABS: Bedside Glucose 115 mg/dL (70-110)
[2019-08-12 10:00] VITALS: BP 133/77; PULSE 68; RESP 16; TEMP 36.7; O2SAT 98
[2019-08-12] MEDS: DULoxetine Hcl 60 MG Capsule PO (10:11)
[2019-08-12] MEDS: Losartan Potassium 100 MG Tablet GT (10:11)
[2019-08-12] MEDS: Carvedilol 12.5 MG Tablet GT ×2 (10:11→20:08)
[2019-08-12] MEDS: Flecainide 100 MG Tablet GT ×2 (10:11→20:11)
[2019-08-12] MEDS: Famotidine 20 MG Tablet GT (10:11)
[2019-08-12] MEDS: Loperamide 2 MG Capsule PO (10:11)
[2019-08-12] MEDS: amLODIPine 10 MG Tablet PO (10:11)
[2019-08-12] MEDS: Menthol/Lanolin/Calamine/Znox 113 GM Tube 1 APPLIC TOPICAL ×2 (10:11→20:08)
[2019-08-12] MEDS: APIXABAN 5 MG TABLET GT ×2 (10:11→20:07)
--- NOTE | 2019-08-12 12:21 | CASEMGMT ---
Social Work IDT met with patient, son and daughter for Team Meeting. Discussed patient's progress in therapy. Pt is min assist for transfers, min to mod for sitting to standing, mod assist while walking with hemiwalker and can follow directions with better foot placement. Mod assist for balance and bathing, max assist or UE dressing, total assist for LE ADLS. ST completing puree trials and pt is still aspirating. Continuing to work on swallowing exercises. IDT agrees pt is impulsive which can interfere with therapy, but overall improving. Pt can now follow directions and to move left arm and recognize as self. Therapy ordered left hand brace. Explained insurance update 08/13 and continued stay is not guaranteed. Will continue to follow. Shannan Mcclellan, MEDICAL INSURANCE CLAIMS PROCESSOR LOSS PREVENTION AGENT
[2019-08-12 12:39] VITALS: BMI 23.8
[2019-08-12 14:40] VITALS: BP 142/72
--- NOTE | 2019-08-12 17:28 | PCM.PROGNOTE ---
Subjective: Afebile VSS Maintaining appropriate oxygen saturation on RA Oral intake - NPO. tolerating the TF with no residuals Discussed with nursing - no problems that need addressed discussed on rounds with the team Reviewed the PT/OT/ST notes Medication list reviewed. She is more alert and appropriate with the increase in the Seroquel She is able to remember the teams names now. She continues to think her relatives have been visiting. Has not been seeing cockroaches when I have been in to talk with her. Tells me that her left shoulder pain is minimal now. starting to move the Left arm more now. BS's are well controlled good bowel function Objective: Alert, oriented x3. she is going to move back to her original room today and I think this may help with some increased confusion she has had since the move to [address]. Not somnolent. She is now able to remember some of the names of the staff. She is more cooperative at night. Lungs-clear to auscultation Heart-regular rate and rhythm, no murmurs, no gallop Abdomen-soft, nontender, nondistended, bowel sounds present, PEG site is clean and free of erythema or purulent discharge. No peripheral edema No rashes - Physical Exam Vitals/I&O's: Vital Signs Temp Pulse Resp BP Pulse Ox 98.0 F 68 16 133/77 H 98 08/12/19 10:00 08/12/19 10:00 08/12/19 10:00 08/12/19 10:00 08/12/19 10:00 Oxygen Delivery Method Room Air Weight: 142 lb 13.753 oz Body Mass Index (BMI) 23.8 Finger Stick Blood Glucose 143 Orthostatic Vital Signs Start: 07/29/19 14:47 Freq: Status: Active Protocol: Activity Type Activity Date Activity User E-Sign Co-Sign Detail Recorded Client Recorded Date Recorded By Document 07/29/19 17:18 BL [id number] 07/29/19 17:24 BL 07/29/19 17:18 Orthostatic Vitals Standing -Blood Pressure (90/60-120/80 mm Hg) 134/74 H -Extremity Use Right Arm -Pulse Rate (60-100 beats/min) 62 Sitting -Blood Pressure (90/60-120/80 mm Hg) 136/86 H -Extremity Use Right Arm -Pulse Rate (60-100 beats/min) 68 Lying -Blood Pressure (90/60-120/80 mm Hg) 129/86 H -Extremity Use Right Arm -Pulse Rate (60-100 beats/min) 67 Intake and Output for Last 24 Hours 08/10/19 08/11/19 08/12/19 23:59 23:59 23:59 Intake Total 1950 / 1950 2880 / 2880 1560 / 1560 Output Total 400 / 400 1750 / 1750 950 / 950 Balance 1550 / 1550 1130 / 1130 610 / 610 Laboratory Results 08/12/19 06:36: POC Glucose 115 H Current Medications Acetaminophen (Tylenol Liquid) 1,000 mg GT TID [facility] Last Admin: 08/12/19 13:48 Dose: 1,000 mg Documented by: Amlodipine Besylate (Norvasc) 10 mg PO DAILY [facility] Last Admin: 08/12/19 10:11 Dose: 10 mg Documented by: Apixaban (Eliquis) 5 mg GT BID [facility] Last Admin: 08/12/19 10:11 Dose: 5 mg Documented by: Atorvastatin Calcium (Lipitor) 40 mg GT QHS [facility] Last Admin: 08/11/19 19:43 Dose: 40 mg Documented by: Bisacodyl (Dulcolax) 10 mg RECTAL .PRN X 1 PRN PRN Reason: Constipation Calamine/Phenol (Calmoseptine Ointment) 1 applic TOPICAL BID [facility]; Protocol Last Admin: 08/12/19 10:11 Dose: 1 applicatio Documented by: Capsaicin (Zostrix) 1 applic TOPICAL TID [facility]; Protocol Last Admin: 08/12/19 13:54 Dose: 1 applicatio Documented by: Carvedilol (Coreg) 12.5 mg GT BID [facility] Last Admin: 08/12/19 10:11 Dose: 12.5 mg Documented by: Duloxetine HCl (Cymbalta) 60 mg PO DAILY [facility] Last Admin: 08/12/19 10:11 Dose: 60 mg Documented by: Enteral Nutritional Formula (Jevity 1.5) 240 ml GT 5X/DAY [facility] Last Admin: 08/12/19 13:48 Dose: 240 ml Documented by: Famotidine (Pepcid) 20 mg GT DAILY [facility] Last Admin: 08/12/19 10:11 Dose: 20 mg Documented by: Flecainide Acetate (Tambocor) 100 mg GT BID [facility] Last Admin: 08/12/19 10:11 Dose: 100 mg Documented by: Lactobacillus Acidophilus (Acidophilus) 1 tablet GT BID [facility] Last Admin: 08/12/19 10:11 Dose: 1 tablet Documented by: Latanoprost (Xalatan Opthalmic) 1 drop EACH EYE DAILY@2200 [facility] Last Admin: 08/11/19 19:41 Dose: 1 drop Documented by: Lidocaine/Prilocaine (Emla Cream W/Tegaderm) 1 gm TOPICAL TID [facility]; Protocol Last Admin: 08/12/19 13:44 Dose: 1 applicatio Documented by: Loperamide HCl (Imodium) 2 mg PO Q4H PRN PRN PRN Reason: DIARRHEA/LOOSE STOOLS Last Admin: 08/12/19 10:11 Dose: 2 mg Documented by: Losartan Potassium (Cozaar) 100 mg GT DAILY [facility] Last Admin: 08/12/19 10:11 Dose: 100 mg Documented by: Magnesium Hydroxide (Milk Of Magnesia) 30 ml PO .PRN X 1 PRN PRN Reason: Constipation Last Admin: 07/08/19 17:32 Dose: 30 ml Documented by: Multi-Ingredient Cream (Eucerin) 1 applic TOPICAL TID PRN PRN; Protocol PRN Reason: Dry Skin Potassium Chloride (Potassium Chl Soln) 20 meq GT BID [facility] Last Admin: 08/12/19 10:11 Dose: 20 meq Documented by: Quetiapine Fumarate (Seroquel) 50 mg GT DAILY@1999 [facility] Last Admin: 08/11/19 19:45 Dose: 50 mg Documented by: Sodium Chloride () 5 - 15 ml IV UD PRN PRN Reason: SALINE FLUSH Last Admin: 06/19/19 06:13 Dose: 10 ml Documented by: Medical Necessity - Tobacco Use Smoking Status: Never smoker Tobacco Use: Non-smoker Assessment/Plan All Active Problems (Last Reviewed 07/09/19 @ 07:57 by Kathi Shields) CVA (cerebral vascular accident) (Acute 05/2019) Impressions 1. 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 Patient is status thrombectomy on 05/23/[address] [facility] [address] Doll. 2. AF - on Flecanide and Coreg....and is in NSR 3. chronic anticoagulation with Eliquis 4. Last ECHO at [facility] with an estimated PA systolic of 60 but, recent TAMERA at [facility] states the PA pressure was 40-45. this is consistent with mild Pulmonary HTN. the EF was 65-70% 5. Dysphagia due to CVA 6. DM II - blood sugars are controlled. HGBA1C is 6.4%. BS this AM was 164 which is higher than it has been.....will check BS BID for the next few days and if none > 180 will DC accuchecks again. 7. HLD - on atorvastatin 40 mg daily. The last LDL recorded was 116 which is too high. Will need to repeat a liver panel and lipid panel 8. Jjocebeyuedq-fmnu-xehrcofqms. ? whether she needs HCTZ? The BUN/CREAT ratio is quite high. Will check orthostatic VS's and if she is orthostatic will DC the HCTZ. In addition to hydrochlorothiazide she is also receiving losartan, amlodipine and Coreg for blood pressure control. 9. CAD 10. S/P PM 11. Anxiety/depression 12. Visual hallucinations.......seem to be improving with the increase in the Seroquel and so does her ability to focus but, the hallucinations are not completely gone......tolerating the increase in the Seroquel to 50 mg with no adverse effects. 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 S/P PEG 06/13/2019. 14. mild - moderate Pulmonary HTN - etiology? 15. Hx of iron deficiency anemia - has seen hematology in the past. HGB has been stable 16. OA with Left shoulder pain - injected by ortho but the pain recurred in a few days......started on EMLA cream and Zostrix and the pain improved significantly but, is still present. discussed with OT and pt has a sling but she is not using it. Will try a different type sling that will restrict movement of the L shoulder/arm when she is not doing therapy. Will also increase the Zostrix to TID....this has worked well and the pain is minimal and not all the time now 17. Hypokalemia - resolved 18. Metabolic alkalosis-more likely than not secondary to hydrochlorothiazide and hypokalemia. resolved with the aforementioned measures continue current meds Recheck lab on 08/15/19 Code Visit Inpatient E&M: [id number] Subs Hosp L2
[2019-08-12 18:46] LABS: Bedside Glucose 185 mg/dL (70-110)
[2019-08-12 20:00] VITALS: BMI 23.8
[2019-08-12] MEDS: QUEtiapine 25 MG Tablet 50 MG GT (20:09)
[2019-08-12] MEDS: Atorvastatin Calcium 40 MG Tablet GT (20:10)
[2019-08-12] MEDS: Latanoprost 0.005% 1 Bottle 1 DRP EACH EYE (20:16)
--- NOTE | 2019-08-12 20:59 | NURSING ---
Meds provided early per pt request
[2019-08-12 22:00] VITALS: BP 137/64; PULSE 61; RESP 16; TEMP 36.7; O2SAT 96
[2019-08-13] MEDS: Lidocaine/Prilocaine HCl 5 GM Tube 1 GM TOPICAL ×3 (05:32→19:38)
[2019-08-13] MEDS: Jevity 1.5. 1,000 ML Bottle 240 ML GT ×5 (05:32→19:41)
[2019-08-13] MEDS: Acetaminophen 650 MG/20 ML UDC 1000 MG GT ×3 (05:33→19:36)
[2019-08-13] MEDS: Capsaicin 0.025% 1 APPLIC Tube TOPICAL ×3 (05:33→19:38)
[2019-08-13 06:40] LABS: Bedside Glucose 159 mg/dL (70-110)
[2019-08-13 09:31] VITALS: BP 130/69; PULSE 65; RESP 16; TEMP 36.2; O2SAT 98
[2019-08-13] MEDS: Menthol/Lanolin/Calamine/Znox 113 GM Tube 1 APPLIC TOPICAL ×2 (10:07→19:40)
[2019-08-13] MEDS: Losartan Potassium 100 MG Tablet GT (10:08)
[2019-08-13] MEDS: Carvedilol 12.5 MG Tablet GT ×2 (10:08→19:40)
[2019-08-13] MEDS: amLODIPine 10 MG Tablet PO (10:08)
[2019-08-13] MEDS: DULoxetine Hcl 60 MG Capsule PO (10:08)
[2019-08-13] MEDS: APIXABAN 5 MG TABLET GT ×2 (10:08→19:39)
[2019-08-13] MEDS: Flecainide 100 MG Tablet GT ×2 (10:08→19:39)
[2019-08-13] MEDS: Famotidine 20 MG Tablet GT (10:08)
--- NOTE | 2019-08-13 11:17 | PCM.PN.BLA ---
Progress Note AF VSS good bowel function no residuals Notified by nursing that she is c/o a lump on the left elbow. She denies pain. On the left elbow there is a small amount of fluid in the olecranon bursa. There is no erythema and no increased warmth to touch. There is no fluid in the joint and she has good passive ROM. No axillary adenopathy No pain in the shoulder. Impressions 1. Left olecranon bursitis.....more likely than not due to using her elbows to push herself up in bed and also to get out of a chair No intervention needed at this time STROKE Vital Signs/Narrative: Vital Signs Temp Pulse Resp BP Pulse Ox 08/13/19 09:31 97.1 F L 65 16 130/69 H 98 Code Visit Inpatient E&M: 33439 Subs Hosp L1
[2019-08-13 16:21] VITALS: BMI 23.8
[2019-08-13 19:25] VITALS: BP 137/75; PULSE 62; RESP 16; TEMP 36.4; O2SAT 96; BMI 23.8
[2019-08-13] MEDS: Latanoprost 0.005% 1 Bottle 1 DRP EACH EYE (19:36)
[2019-08-13] MEDS: QUEtiapine 25 MG Tablet 50 MG GT (19:39)
[2019-08-13] MEDS: Atorvastatin Calcium 40 MG Tablet GT (19:40)
[2019-08-13 19:45] VITALS: PULSE 62; RESP 16; O2SAT 96
--- NOTE | 2019-08-14 01:27 | NURSING ---
Reviewed and agree with VP SOFTWARE ENGINEERING documentation and charting.
[2019-08-14] MEDS: Acetaminophen 650 MG/20 ML UDC 1000 MG GT ×3 (05:06→20:57)
[2019-08-14] MEDS: Capsaicin 0.025% 1 APPLIC Tube TOPICAL ×3 (05:06→20:58)
[2019-08-14] MEDS: Lidocaine/Prilocaine HCl 5 GM Tube 1 GM TOPICAL ×3 (05:07→20:56)
[2019-08-14] MEDS: Jevity 1.5. 1,000 ML Bottle 240 ML GT ×5 (05:09→20:56)
[2019-08-14 06:55] LABS: Bedside Glucose 167 mg/dL (70-110)
[2019-08-14 08:11] VITALS: BP 141/75; PULSE 62; RESP 16; TEMP 37.1; O2SAT 96
[2019-08-14] MEDS: APIXABAN 5 MG TABLET GT ×2 (09:44→20:55)
[2019-08-14] MEDS: Losartan Potassium 100 MG Tablet GT (09:44)
[2019-08-14] MEDS: amLODIPine 10 MG Tablet PO (09:44)
[2019-08-14] MEDS: Loperamide 2 MG Capsule PO (09:44)
[2019-08-14] MEDS: DULoxetine Hcl 60 MG Capsule PO (09:44)
[2019-08-14] MEDS: Carvedilol 12.5 MG Tablet GT ×2 (09:44→20:55)
[2019-08-14] MEDS: Flecainide 100 MG Tablet GT ×2 (09:45→20:57)
[2019-08-14] MEDS: Famotidine 20 MG Tablet GT (09:45)
[2019-08-14] MEDS: Menthol/Lanolin/Calamine/Znox 113 GM Tube 1 APPLIC TOPICAL ×2 (09:45→20:54)
[2019-08-14 14:19] VITALS: BMI 23.8
[2019-08-14] MEDS: QUEtiapine 25 MG Tablet 50 MG GT (20:54)
[2019-08-14] MEDS: Atorvastatin Calcium 40 MG Tablet GT (20:56)
[2019-08-14] MEDS: Latanoprost 0.005% 1 Bottle 1 DRP EACH EYE (20:57)
[2019-08-14 22:00] VITALS: BP 135/72; PULSE 80; RESP 16; TEMP 36.4; O2SAT 95
[2019-08-14 23:08] VITALS: BMI 23.8
--- NOTE | 2019-08-15 03:00 | NURSING ---
REVIEWED AND AGREE WITH QC CHEMIST'S FUNCTIONAL ASSESSMENT AND HANDOFF CHARTING.
[2019-08-15 05:59] LABS: Hematocrit 37.1 % (37-47); Hemoglobin 11.7 g/dL (12.0-15.0); Mean Corp Hgb Conc 31.5 g/dL (32-36); Mean Corpuscular Hgb 29.6 pg (27.0-32.0); Mean Corpuscular Volume 93.9 fL (81-99); Platelet Count 337 K/mm3 (150-450); RBC Distribution Width SD 51.9 fl (35.1-43.9); Red Blood Count 3.95 M/mm3 (4.2-5.4); White Blood Count 6.4 K/mm3 (4.4-11.0)
[2019-08-15] MEDS: Lidocaine/Prilocaine HCl 5 GM Tube 1 GM TOPICAL ×3 (06:17→21:25)
[2019-08-15] MEDS: Acetaminophen 650 MG/20 ML UDC 1000 MG GT ×3 (06:17→21:27)
[2019-08-15] MEDS: Capsaicin 0.025% 1 APPLIC Tube TOPICAL ×3 (06:17→21:28)
[2019-08-15] MEDS: Jevity 1.5. 1,000 ML Bottle 240 ML GT ×5 (06:18→21:26)
[2019-08-15 06:35] LABS: Anion Gap 4 (5-15); BUN 31 mg/dL (7-18); BUN/Creat Ratio 32.4 RATIO (10-20); Calcium,Total 9.5 mg/dL (8.5-10.1); Chloride 109 mmol/L (98-107); Creatinine, Serum 0.96 mg/dL (0.55-1.02); EST Glomerular Filtration Rate 60 mL/min (>60); Est Glom Filt Rate - Afr Amer 73 mL/min (>60); Estimated Creatinine Clearance 46.97 ml/min; Glucose 99 mg/dL (74-106); Magnesium 2.3 mg/dL (1.6-2.6); Phosphorus 3.8 mg/dL (2.5-4.9); Potassium 4.5 mmol/L (3.5-5.1); Sodium Level 143 mmol/L (136-145)
[2019-08-15 07:00] VITALS: BP 134/80; PULSE 64; RESP 16; TEMP 36.6; O2SAT 99
[2019-08-15] MEDS: Flecainide 100 MG Tablet GT ×2 (09:12→21:26)
[2019-08-15] MEDS: Losartan Potassium 100 MG Tablet GT (09:12)
[2019-08-15] MEDS: APIXABAN 5 MG TABLET GT ×2 (09:12→21:24)
[2019-08-15] MEDS: DULoxetine Hcl 60 MG Capsule PO (09:12)
[2019-08-15] MEDS: Carvedilol 12.5 MG Tablet GT ×2 (09:12→21:25)
[2019-08-15] MEDS: Famotidine 20 MG Tablet GT (09:12)
[2019-08-15] MEDS: amLODIPine 10 MG Tablet PO (09:12)
[2019-08-15] MEDS: Menthol/Lanolin/Calamine/Znox 113 GM Tube 1 APPLIC TOPICAL ×2 (09:13→21:30)
[2019-08-15 10:28] VITALS: BP 123/69; BP 129/73; BP 131/81; PULSE 64; PULSE 69; PULSE 72
[2019-08-15 15:23] VITALS: BMI 23.8
[2019-08-15 18:11] LABS: Bedside Glucose 133 mg/dL (70-110)
[2019-08-15 19:37] VITALS: BP 139/83; PULSE 67; RESP 18; TEMP 36.7; O2SAT 96
[2019-08-15 20:14] VITALS: BMI 23.8
[2019-08-15] MEDS: QUEtiapine 25 MG Tablet 50 MG GT (21:25)
[2019-08-15] MEDS: Atorvastatin Calcium 40 MG Tablet GT (21:26)
[2019-08-15] MEDS: Latanoprost 0.005% 1 Bottle 1 DRP EACH EYE (21:28)
[2019-08-16] MEDS: Lidocaine/Prilocaine HCl 5 GM Tube 1 GM TOPICAL ×3 (05:07→21:09)
[2019-08-16] MEDS: Capsaicin 0.025% 1 APPLIC Tube TOPICAL ×3 (05:07→21:30)
[2019-08-16] MEDS: Acetaminophen 650 MG/20 ML UDC 1000 MG GT ×3 (05:07→21:10)
[2019-08-16] MEDS: Jevity 1.5. 1,000 ML Bottle 240 ML GT ×5 (05:08→21:10)
[2019-08-16 06:16] LABS: Bedside Glucose 165 mg/dL (70-110)
[2019-08-16 07:46] VITALS: BP 133/74; PULSE 60; RESP 18; TEMP 36.6; O2SAT 96
[2019-08-16] MEDS: Losartan Potassium 100 MG Tablet GT (10:09)
[2019-08-16] MEDS: Flecainide 100 MG Tablet GT ×2 (10:09→21:10)
[2019-08-16] MEDS: amLODIPine 10 MG Tablet PO (10:09)
[2019-08-16] MEDS: DULoxetine Hcl 60 MG Capsule PO (10:09)
[2019-08-16] MEDS: Famotidine 20 MG Tablet GT (10:09)
[2019-08-16] MEDS: Carvedilol 12.5 MG Tablet GT ×2 (10:09→21:08)
[2019-08-16] MEDS: APIXABAN 5 MG TABLET GT ×2 (10:09→21:08)
[2019-08-16] MEDS: Menthol/Lanolin/Calamine/Znox 113 GM Tube 1 APPLIC TOPICAL ×2 (10:10→21:08)
--- NOTE | 2019-08-16 12:50 | PN_ITS ---
Progress Note Afebrile Vital signs stable Orthostatics were negative on 08/15/2019 Maintaining an oxygen saturation of 95 to 99% on room air with no tachypnea. Blood sugars are well controlled no complaints Alert, appropriate at times and at others she thinks she is mistaking other patients for her relatives. Lungs - CTA MMM Heart RRR without gallop or rub abdomen is soft and nontender and has normal BS's in all quadrants, no guarding with palpation.. PEG site is without DC and no erythema no peripheral edema Impressions 1. 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 Patient is status thrombectomy on 05/23/[address] [facility] [address] Doll. 2. AF - on Flecanide and Coreg and remaining in NSR 3. chronic anticoagulation with Eliquis 4. Last ECHO at [facility] with an estimated PA systolic of 60 but, recent TAMERA at [facility] states the PA pressure was 40-45. this is consistent with mild Pulmonary HTN. the EF was 65-70% 5. Dysphagia due to CVA 6. DM II - blood sugars are controlled. HGBA1C is 6.4%. 7. HLD - on atorvastatin 40 mg daily. The last LDL recorded was 116 which is too high. Will need to repeat a liver panel and lipid panel 8. Zrrsukdclrwz-xyqs-qoytbagzdy. ? whether she needs HCTZ? The BUN/CREAT ratio is quite high. Will check orthostatic VS's and if she is orthostatic will DC the HCTZ. In addition to hydrochlorothiazide she is also receiving losartan, amlodipine and Coreg for blood pressure control. 9. CAD 10. S/P PM 11. Anxiety/depression 12. Visual hallucinations.......seem to be improving with the increase in the Seroquel. She is not having scary hallucinations any longer and is not seeing things. She is confusing other patients for her relatives.....may be memories. Her ability to focus is much better with the Seroquel and she is doing better with therapy. Will continue at the current dose 13. S/P PEG 06/13/2019. 14. mild - moderate Pulmonary HTN - etiology? 15. Hx of iron deficiency anemia - has seen hematology in the past. HGB has been stable. Code Visit Inpatient E&M: 85637 Subs Hosp L1
[2019-08-16 14:31] VITALS: BMI 23.8
[2019-08-16 20:00] VITALS: BP 133/72; PULSE 77; RESP 16; TEMP 36.3; O2SAT 92
[2019-08-16 20:08] VITALS: BMI 23.8
[2019-08-16] MEDS: QUEtiapine 25 MG Tablet 50 MG GT (21:07)
[2019-08-16] MEDS: Atorvastatin Calcium 40 MG Tablet GT (21:10)
[2019-08-16] MEDS: Latanoprost 0.005% 1 Bottle 1 DRP EACH EYE (22:12)
--- NOTE | 2019-08-17 02:37 | NURSING ---
Reviewed and agree with LPNs handoff
[2019-08-17] MEDS: Lidocaine/Prilocaine HCl 5 GM Tube 1 GM TOPICAL ×3 (06:08→20:55)
[2019-08-17] MEDS: Capsaicin 0.025% 1 APPLIC Tube TOPICAL ×3 (06:09→20:57)
[2019-08-17] MEDS: Acetaminophen 650 MG/20 ML UDC 1000 MG GT ×3 (06:09→20:56)
[2019-08-17] MEDS: Jevity 1.5. 1,000 ML Bottle 240 ML GT ×5 (06:09→20:55)
[2019-08-17 08:07] VITALS: BP 119/60; PULSE 63; RESP 16; TEMP 36.5; O2SAT 96
[2019-08-17] MEDS: Carvedilol 12.5 MG Tablet GT ×2 (10:07→20:55)
[2019-08-17] MEDS: amLODIPine 10 MG Tablet PO (10:07)
[2019-08-17] MEDS: DULoxetine Hcl 60 MG Capsule PO (10:08)
[2019-08-17] MEDS: Flecainide 100 MG Tablet GT ×2 (10:08→20:56)
[2019-08-17] MEDS: Losartan Potassium 100 MG Tablet GT (10:08)
[2019-08-17] MEDS: Famotidine 20 MG Tablet GT (10:08)
[2019-08-17] MEDS: APIXABAN 5 MG TABLET GT ×2 (10:08→20:55)
[2019-08-17] MEDS: Menthol/Lanolin/Calamine/Znox 113 GM Tube 1 APPLIC TOPICAL ×2 (10:08→20:54)
[2019-08-17 11:46] VITALS: BMI 23.8
[2019-08-17 18:11] LABS: Bedside Glucose 162 mg/dL (70-110)
[2019-08-17] MEDS: QUEtiapine 25 MG Tablet 50 MG GT (20:54)
[2019-08-17] MEDS: Atorvastatin Calcium 40 MG Tablet GT (20:56)
[2019-08-17] MEDS: Latanoprost 0.005% 1 Bottle 1 DRP EACH EYE (20:56)
[2019-08-17 22:00] VITALS: BP 117/61; PULSE 65; RESP 16; TEMP 36.8; O2SAT 96
[2019-08-17 23:07] VITALS: BMI 23.8
--- NOTE | 2019-08-18 00:21 | NURSING ---
Reviewed and agree with LPNs handoff
[2019-08-18] MEDS: Capsaicin 0.025% 1 APPLIC Tube TOPICAL ×3 (06:06→21:32)
[2019-08-18] MEDS: Acetaminophen 650 MG/20 ML UDC 1000 MG GT ×3 (06:06→20:33)
[2019-08-18] MEDS: Lidocaine/Prilocaine HCl 5 GM Tube 1 GM TOPICAL ×3 (06:07→20:32)
[2019-08-18] MEDS: Jevity 1.5. 1,000 ML Bottle 240 ML GT ×5 (06:09→20:32)
[2019-08-18 07:00] LABS: Bedside Glucose 155 mg/dL (70-110)
[2019-08-18 07:40] VITALS: BP 122/64; PULSE 64; RESP 18; TEMP 36.3; O2SAT 94
[2019-08-18] MEDS: Menthol/Lanolin/Calamine/Znox 113 GM Tube 1 APPLIC TOPICAL ×2 (09:02→20:31)
[2019-08-18] MEDS: Flecainide 100 MG Tablet GT ×2 (09:02→20:33)
[2019-08-18] MEDS: Losartan Potassium 100 MG Tablet GT (09:02)
[2019-08-18] MEDS: amLODIPine 10 MG Tablet PO (09:02)
[2019-08-18] MEDS: Loperamide 2 MG Capsule PO (09:02)
[2019-08-18] MEDS: Carvedilol 12.5 MG Tablet GT ×2 (09:02→20:32)
[2019-08-18] MEDS: APIXABAN 5 MG TABLET GT ×2 (09:03→20:32)
[2019-08-18] MEDS: DULoxetine Hcl 60 MG Capsule PO (09:03)
[2019-08-18] MEDS: Famotidine 20 MG Tablet GT (09:04)
[2019-08-18 11:22] VITALS: BMI 23.8
--- NOTE | 2019-08-18 15:29 | PN_ITS ---
Progress Note Afebile VSS Maintaining appropriate oxygen saturation on RA NPO Discussed with nursing - no problems that need addressed Reviewed the PT/OT/ST notes Medication list reviewed. All lab was personally reviewed. Hemoglobin is 11.7 today and gradually improving. White blood cell count and platelets are within normal limits. Electrolytes are unremarkable. BUN is 31 and the creatinine is 0.96. Magnesium and phosphorus are within normal limits. No complaints. Her dtr Angela is visiting today and she is upset that her mother continues to say relatives have been visiting her and then Angela contradicts her and they argue. She continues to think the Seroquel is causing confusion and hallucinations. I reminded her that the Seroquel was started because of hallucinations, confusion, yelling out all the time and trying to crawl out of bed. With the Seroquel she has done much better with therapy and continues to improve. She no longer yells out and the nurses are not often in her room trying to keep her in bed. Alert. Oriented to person, place and month. Lungs - CTA Heart - RRR, no gallop abd -soft, NT, ND, normal BS's. PEG site has no erythema and no purulent DC No edema Minimal Left olecranon effusion....not tender to touch Impressions 1. 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 She is status post thrombectomy on 05/23/[address] [facility] [address] Doll. She continues to progress with therapy and has not plateaued. 2. Delirium with visual hallucinations post CVA. Tolerating current dose of Seroquel 50 mg. Continues to have visual hallucinations but other behaviors have been controlled. 3. Diabetes mellitus type 2-blood sugars are well controlled with diet alone, not requiring any insulin or oral medications. 4. Chronic anticoagulation with Eliquis for paroxysmal atrial fibrillation- hemoglobin stable and in fact improving. Continue current treatment. Code Visit Inpatient E&M: 11476 Subs Hosp L2
[2019-08-18] MEDS: QUEtiapine 25 MG Tablet 50 MG GT (20:31)
[2019-08-18] MEDS: Atorvastatin Calcium 40 MG Tablet GT (20:32)
[2019-08-18] MEDS: Latanoprost 0.005% 1 Bottle 1 DRP EACH EYE (20:33)
[2019-08-18 21:04] VITALS: BP 148/81; PULSE 71; RESP 16; TEMP 36.7; O2SAT 95
[2019-08-18 22:42] VITALS: BMI 23.8
--- NOTE | 2019-08-19 01:44 | NURSING ---
Reviewed and agree with LPNs handoff
[2019-08-19] MEDS: Lidocaine/Prilocaine HCl 5 GM Tube 1 GM TOPICAL ×3 (06:06→21:01)
[2019-08-19] MEDS: Acetaminophen 650 MG/20 ML UDC 1000 MG GT ×3 (06:06→20:56)
[2019-08-19] MEDS: Jevity 1.5. 1,000 ML Bottle 240 ML GT ×5 (06:07→21:00)
[2019-08-19] MEDS: Capsaicin 0.025% 1 APPLIC Tube TOPICAL ×3 (06:07→21:01)
[2019-08-19 07:10] VITALS: BP 138/70; PULSE 63; RESP 16; TEMP 37.2; O2SAT 95
[2019-08-19] MEDS: Loperamide 2 MG Capsule PO (08:35)
[2019-08-19] MEDS: APIXABAN 5 MG TABLET GT ×2 (08:35→20:57)
[2019-08-19] MEDS: Carvedilol 12.5 MG Tablet GT ×2 (08:35→20:58)
[2019-08-19] MEDS: DULoxetine Hcl 60 MG Capsule PO (08:35)
[2019-08-19] MEDS: Flecainide 100 MG Tablet GT ×2 (08:35→20:56)
[2019-08-19] MEDS: Famotidine 20 MG Tablet GT (08:35)
[2019-08-19] MEDS: Losartan Potassium 100 MG Tablet GT (08:35)
[2019-08-19] MEDS: amLODIPine 10 MG Tablet PO (08:36)
[2019-08-19] MEDS: Menthol/Lanolin/Calamine/Znox 113 GM Tube 1 APPLIC TOPICAL ×2 (08:52→21:01)
--- NOTE | 2019-08-19 14:30 | CASEMGMT ---
Social Work IDT met with patient, daughter and son for Team Meeting. Discussed patient's progress in therapy. Pt is min to mod assist for transfers, mod assist pivot transfers or max assist to the left side, walking at wall rail with improved accuracy of foot placement, walking with hemiwalker 20 ft. Pt is mind to mod for bathing, max for UE/LE dressing. Pt continues to work with ST on swallowing exercises, aspiration with trials of foods, doing better attending to the left side, but still very impulsive. Pt overall making progress. Continue to discuss use of Seroquel - IDT agrees pr has improved greatly with dose. Physician reeducated family. Insurance update 08/20 and continued stay is not guaranteed. Will continue to follow. NBA WeaverW
[2019-08-19 16:06] VITALS: BMI 23.8
[2019-08-19 16:55] LABS: Bedside Glucose 167 mg/dL (70-110)
[2019-08-19 20:50] VITALS: BP 142/86; PULSE 68; RESP 16; TEMP 37; O2SAT 93; BMI 23.8
[2019-08-19] MEDS: QUEtiapine 25 MG Tablet 50 MG GT (20:56)
[2019-08-19] MEDS: Atorvastatin Calcium 40 MG Tablet GT (20:57)
[2019-08-19] MEDS: Latanoprost 0.005% 1 Bottle 1 DRP EACH EYE (20:58)
--- NOTE | 2019-08-20 01:43 | NURSING ---
Reviewed and agree with SOLAR DESIGN ENGINEER documentation and charting.
[2019-08-20] MEDS: Acetaminophen 650 MG/20 ML UDC 1000 MG GT ×3 (05:49→20:08)
[2019-08-20] MEDS: Lidocaine/Prilocaine HCl 5 GM Tube 1 GM TOPICAL ×3 (05:50→20:00)
[2019-08-20] MEDS: Capsaicin 0.025% 1 APPLIC Tube TOPICAL ×3 (05:51→20:05)
[2019-08-20] MEDS: Jevity 1.5. 1,000 ML Bottle 240 ML GT ×5 (05:51→20:02)
[2019-08-20 07:15] LABS: Bedside Glucose 161 mg/dL (70-110)
[2019-08-20 08:47] VITALS: BP 114/65; PULSE 60; RESP 16; TEMP 36.5; O2SAT 93
[2019-08-20] MEDS: Losartan Potassium 100 MG Tablet GT (10:53)
[2019-08-20] MEDS: DULoxetine Hcl 60 MG Capsule PO (10:53)
[2019-08-20] MEDS: Carvedilol 12.5 MG Tablet GT ×2 (10:53→20:00)
[2019-08-20] MEDS: Flecainide 100 MG Tablet GT ×2 (10:54→20:01)
[2019-08-20] MEDS: Famotidine 20 MG Tablet GT (10:54)
[2019-08-20] MEDS: APIXABAN 5 MG TABLET GT ×2 (10:54→20:02)
[2019-08-20] MEDS: amLODIPine 10 MG Tablet PO (10:54)
[2019-08-20] MEDS: Menthol/Lanolin/Calamine/Znox 113 GM Tube 1 APPLIC TOPICAL ×2 (10:55→20:02)
[2019-08-20 17:00] VITALS: BMI 23.8
[2019-08-20 20:00] VITALS: PULSE 71; RESP 16; O2SAT 95; BMI 23.8
[2019-08-20] MEDS: QUEtiapine 25 MG Tablet 50 MG GT (20:01)
[2019-08-20] MEDS: Atorvastatin Calcium 40 MG Tablet GT (20:01)
[2019-08-20] MEDS: Latanoprost 0.005% 1 Bottle 1 DRP EACH EYE (20:03)
[2019-08-20 22:00] VITALS: BP 149/80; PULSE 71; RESP 16; TEMP 36.4; O2SAT 95
--- NOTE | 2019-08-21 03:55 | NURSING ---
Reviewed and agree with GREEN[employer]T documentation and charting.
[2019-08-21] MEDS: Jevity 1.5. 1,000 ML Bottle 240 ML GT ×5 (05:40→20:19)
[2019-08-21] MEDS: Acetaminophen 650 MG/20 ML UDC 1000 MG GT ×3 (05:40→20:17)
[2019-08-21 07:00] VITALS: BP 103/63; PULSE 69; RESP 16; TEMP 36.6; O2SAT 95
[2019-08-21] MEDS: Famotidine 20 MG Tablet GT (10:02)
[2019-08-21] MEDS: amLODIPine 10 MG Tablet PO (10:02)
[2019-08-21] MEDS: Flecainide 100 MG Tablet GT ×2 (10:02→20:18)
[2019-08-21] MEDS: DULoxetine Hcl 60 MG Capsule PO (10:02)
[2019-08-21] MEDS: Menthol/Lanolin/Calamine/Znox 113 GM Tube 1 APPLIC TOPICAL ×2 (10:02→20:18)
[2019-08-21] MEDS: APIXABAN 5 MG TABLET GT ×2 (10:02→20:18)
[2019-08-21] MEDS: Losartan Potassium 100 MG Tablet GT (10:02)
[2019-08-21] MEDS: Carvedilol 12.5 MG Tablet GT ×2 (10:02→20:18)
--- NOTE | 2019-08-21 10:22 | PCM.PN.BLA ---
Progress Note Afebrile Vital signs stable no complaints Reviewed the therapy notes doing well and continuing to progress. BS record reviewed BS's are well controlled Lungs - CTA Heart RRR, no gallop abd - soft, NT, ND, normal BS's in all quadrants no edema please see the therapy notes for progress Impressions 1. debility due to R MCA ischemic CVA due to a R MCA thrombus 2. DM II well controlled 3. Dysphagia - katlyn water and TF's...Recheck weekly lab in the aM Continue therapy STROKE Vital Signs/Narrative: Vital Signs Temp Pulse Resp BP Pulse Ox 08/21/19 07:00 97.8 F 69 16 103/63 95 Code Visit Inpatient E&M: 34250 Subs Hosp L1
[2019-08-21] MEDS: Lidocaine/Prilocaine HCl 5 GM Tube 1 GM TOPICAL ×2 (14:30→20:15)
[2019-08-21] MEDS: Capsaicin 0.025% 1 APPLIC Tube TOPICAL ×2 (14:34→20:15)
[2019-08-21 16:28] VITALS: BMI 23.8
[2019-08-21 19:11] LABS: Bedside Glucose 172 mg/dL (70-110)
[2019-08-21 19:30] VITALS: PULSE 63; RESP 18; O2SAT 95; BMI 23.8
[2019-08-21 20:01] VITALS: BP 138/72; PULSE 66; RESP 18; TEMP 36.7; O2SAT 97
[2019-08-21] MEDS: Latanoprost 0.005% 1 Bottle 1 DRP EACH EYE (20:15)
[2019-08-21] MEDS: Atorvastatin Calcium 40 MG Tablet GT (20:18)
[2019-08-21] MEDS: QUEtiapine 25 MG Tablet 50 MG GT (20:18)
--- NOTE | 2019-08-22 02:55 | NURSING ---
Reviewed and agree with COUNSELING DEPARTMENT CHAIR documentation and charting.
[2019-08-22] MEDS: Lidocaine/Prilocaine HCl 5 GM Tube 1 GM TOPICAL ×3 (05:14→20:53)
[2019-08-22] MEDS: Capsaicin 0.025% 1 APPLIC Tube TOPICAL ×3 (05:14→20:54)
[2019-08-22] MEDS: Acetaminophen 650 MG/20 ML UDC 1000 MG GT ×3 (05:14→20:54)
[2019-08-22] MEDS: Jevity 1.5. 1,000 ML Bottle 240 ML GT ×5 (05:14→20:55)
[2019-08-22 06:03] LABS: Hematocrit 37.4 % (37-47); Hemoglobin 11.7 g/dL (12.0-15.0); Mean Corp Hgb Conc 31.3 g/dL (32-36); Mean Corpuscular Hgb 29.6 pg (27.0-32.0); Mean Corpuscular Volume 94.7 fL (81-99); Mean Platelet Vol. 10.5 fl (6.2-12.0); Platelet Count 308 K/mm3 (150-450); RBC Distribution Width CV 15.6 % (11.6-14.6); RBC Distribution Width SD 54.3 fl (35.1-43.9); Red Blood Count 3.95 M/mm3 (4.2-5.4); White Blood Count 5.1 K/mm3 (4.4-11.0)
[2019-08-22 06:35] LABS: Anion Gap 4 (5-15); BUN 33 mg/dL (7-18); BUN/Creat Ratio 32.7 RATIO (10-20); Calcium,Total 9.2 mg/dL (8.5-10.1); Chloride 109 mmol/L (98-107); Creatinine, Serum 1.01 mg/dL (0.55-1.02); EST Glomerular Filtration Rate 56 mL/min (>60); Est Glom Filt Rate - Afr Amer 68 mL/min (>60); Estimated Creatinine Clearance 44.64 ml/min; Glucose 152 mg/dL (74-106); Magnesium 2.4 mg/dL (1.6-2.6); Phosphorus 3.8 mg/dL (2.5-4.9); Potassium 4.4 mmol/L (3.5-5.1); Sodium Level 143 mmol/L (136-145)
[2019-08-22 07:10] LABS: Bedside Glucose 182 mg/dL (70-110)
--- NOTE | 2019-08-22 08:42 | PN_ITS ---
Progress Note Afebile VSS Maintaining appropriate oxygen saturation on RA-95 to 97% on room air. Oral intake is Cristal water only-100 cc on 08/21/2019 Weight is stable Good bowel function Discussed with nursing - no problems that need addressed Reviewed the PT/OT/ST notes Medication list reviewed. All lab was personally reviewed. Hemoglobin is stable at 11.7. Platelets and white blood cell count are within normal limits. BMP is significant for an elevated BUN at 33 with a creatinine of 1.01. Calcium phosphorus and magnesium are all within normal limits. Blood sugar record was reviewed and blood sugars are adequately controlled. No hypoglycemia. Alert, oriented x3, no apparent distress, pleasant, appropriate Lungs-clear to auscultation with excellent air exchange Heart-regular rate and rhythm with no ectopics Abdomen-soft, nontender, nondistended, no guarding with palpation, bowel sounds heard in all 4 quadrants, PEG site is without erythema or discharge No peripheral edema, good capillary refill Impressions 1. 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 Patient is status thrombectomy on 05/23/[address] [facility] [address] Doll. 2. AF - on Flecanide and Coreg. she has remained in NSR 3. chronic anticoagulation with Eliquis 4. Last ECHO at [facility] with an estimated PA systolic of 60 but, recent TAMERA at [facility] states the PA systolic pressure was 40-45. This is consistent with mild Pulmonary HTN. The EF was 65-70% 5. Dysphagia due to CVA - still NPO except for Cristal water 6. DM II - blood sugars are controlled. HGBA1C is 6.4%. 7. HLD - on atorvastatin 40 mg daily. The last LDL recorded was 116 which is too high. Will need to repeat a liver panel and lipid panel 8. Quydvpkszxvf-upuv-rgnlfhlcqq. ? whether she needs HCTZ? The BUN/CREAT ratio is quite high. Will check orthostatic VS's and if she is orthostatic will DC the HCTZ. In addition to hydrochlorothiazide she is also receiving losartan, amlodipine and Coreg for blood pressure control. 9. CAD 10. S/P PM 11. Anxiety/depression 12. Visual hallucinations....... improved with the increase in the Seroquel. Will continue at the current dose 13. S/P PEG 06/13/2019. 14. mild - moderate Pulmonary HTN - etiology? 15. Hx of iron deficiency anemia - has seen hematology in the past. HGB has been stable Continue current drug regimen and therapy. Code Visit Inpatient E&M: 84236 Subs Hosp L1
[2019-08-22 10:00] VITALS: BP 114/64; PULSE 63; RESP 16; TEMP 36.6; O2SAT 96
[2019-08-22] MEDS: Flecainide 100 MG Tablet GT ×2 (10:22→20:53)
[2019-08-22] MEDS: Carvedilol 12.5 MG Tablet GT ×2 (10:22→20:52)
[2019-08-22] MEDS: Losartan Potassium 100 MG Tablet GT (10:22)
[2019-08-22] MEDS: DULoxetine Hcl 60 MG Capsule PO (10:22)
[2019-08-22] MEDS: Famotidine 20 MG Tablet GT (10:22)
[2019-08-22] MEDS: amLODIPine 10 MG Tablet PO (10:22)
[2019-08-22] MEDS: APIXABAN 5 MG TABLET GT ×2 (10:22→20:53)
[2019-08-22] MEDS: Menthol/Lanolin/Calamine/Znox 113 GM Tube 1 APPLIC TOPICAL ×2 (10:37→20:53)
[2019-08-22 12:52] VITALS: BMI 23.8
[2019-08-22] MEDS: Atorvastatin Calcium 40 MG Tablet GT (20:52)
[2019-08-22] MEDS: QUEtiapine 25 MG Tablet 50 MG GT (20:52)
[2019-08-22] MEDS: Latanoprost 0.005% 1 Bottle 1 DRP EACH EYE (20:54)
--- NOTE | 2019-08-22 21:19 | NURSING ---
pt noted with increased uurination at this time. pt on bedpan before hs bath, during hs bath, and after hs feed. pt asking why she is urinating so much. will leave note for dr. coto. will continue to monitor for more s/sx of infection.
[2019-08-22 22:00] VITALS: BP 139/71; PULSE 66; RESP 16; TEMP 36.8; O2SAT 95
[2019-08-23 00:18] VITALS: BMI 23.8
--- NOTE | 2019-08-23 03:50 | NURSING ---
REVIEWED AND AGREE WITH STUDENT ACCOUNTS MANAGER'S FUNCTIONAL ASSESSMENT AND HANDOFF CHARTING.
[2019-08-23] MEDS: Lidocaine/Prilocaine HCl 5 GM Tube 1 GM TOPICAL ×3 (05:20→20:57)
[2019-08-23] MEDS: Jevity 1.5. 1,000 ML Bottle 240 ML GT ×5 (05:21→20:55)
[2019-08-23] MEDS: Acetaminophen 650 MG/20 ML UDC 1000 MG GT ×3 (05:21→20:55)
[2019-08-23] MEDS: Capsaicin 0.025% 1 APPLIC Tube TOPICAL ×3 (05:22→20:56)
[2019-08-23 07:01] LABS: Bedside Glucose 199 mg/dL (70-110)
[2019-08-23 10:00] VITALS: BP 125/83; PULSE 67; RESP 18; TEMP 36.9; O2SAT 97
[2019-08-23] MEDS: DULoxetine Hcl 60 MG Capsule PO (10:02)
[2019-08-23] MEDS: Menthol/Lanolin/Calamine/Znox 113 GM Tube 1 APPLIC TOPICAL ×2 (10:02→21:03)
[2019-08-23] MEDS: Carvedilol 12.5 MG Tablet GT ×2 (10:02→20:56)
[2019-08-23] MEDS: APIXABAN 5 MG TABLET GT ×2 (10:03→20:56)
[2019-08-23] MEDS: Losartan Potassium 100 MG Tablet GT (10:03)
[2019-08-23] MEDS: amLODIPine 10 MG Tablet PO (10:05)
[2019-08-23] MEDS: Famotidine 20 MG Tablet GT (10:05)
[2019-08-23] MEDS: Flecainide 100 MG Tablet GT ×2 (10:05→20:56)
[2019-08-23 15:20] VITALS: BMI 23.8
[2019-08-23] MEDS: QUEtiapine 25 MG Tablet 50 MG GT (20:56)
[2019-08-23] MEDS: Latanoprost 0.005% 1 Bottle 1 DRP EACH EYE (20:57)
[2019-08-23] MEDS: Atorvastatin Calcium 40 MG Tablet GT (20:57)
[2019-08-23 21:05] VITALS: BP 142/74; PULSE 60; RESP 18; TEMP 36.6; O2SAT 97
[2019-08-23 23:50] VITALS: BMI 23.8
[2019-08-24] MEDS: Lidocaine/Prilocaine HCl 5 GM Tube 1 GM TOPICAL ×3 (06:39→20:25)
[2019-08-24] MEDS: Acetaminophen 650 MG/20 ML UDC 1000 MG GT ×3 (06:42→20:31)
[2019-08-24] MEDS: Jevity 1.5. 1,000 ML Bottle 240 ML GT ×5 (06:42→20:33)
[2019-08-24] MEDS: Capsaicin 0.025% 1 APPLIC Tube TOPICAL ×3 (06:56→20:30)
[2019-08-24 07:00] VITALS: BP 142/80; PULSE 60; RESP 16; TEMP 36.8; O2SAT 97
[2019-08-24 07:11] LABS: Bedside Glucose 109 mg/dL (70-110)
[2019-08-24] MEDS: Carvedilol 12.5 MG Tablet GT ×2 (09:15→20:34)
[2019-08-24] MEDS: amLODIPine 10 MG Tablet PO (09:15)
[2019-08-24] MEDS: APIXABAN 5 MG TABLET GT ×2 (09:15→20:34)
[2019-08-24] MEDS: Losartan Potassium 100 MG Tablet GT (09:16)
[2019-08-24] MEDS: DULoxetine Hcl 60 MG Capsule PO (09:16)
[2019-08-24] MEDS: Famotidine 20 MG Tablet GT (09:16)
[2019-08-24] MEDS: Menthol/Lanolin/Calamine/Znox 113 GM Tube 1 APPLIC TOPICAL ×2 (09:16→20:34)
[2019-08-24] MEDS: Flecainide 100 MG Tablet GT ×2 (09:16→20:33)
[2019-08-24 12:15] VITALS: BP 138/78
[2019-08-24] MEDS: Loperamide 2 MG Capsule PO (14:14)
[2019-08-24 15:27] VITALS: BMI 23.8
[2019-08-24 19:34] VITALS: BP 139/85; PULSE 72; RESP 16; TEMP 36.6; O2SAT 96
[2019-08-24] MEDS: Latanoprost 0.005% 1 Bottle 1 DRP EACH EYE (20:30)
[2019-08-24] MEDS: Atorvastatin Calcium 40 MG Tablet GT (20:33)
[2019-08-24] MEDS: QUEtiapine 25 MG Tablet 50 MG GT (20:34)
[2019-08-25] MEDS: Lidocaine/Prilocaine HCl 5 GM Tube 1 GM TOPICAL ×3 (05:38→19:57)
[2019-08-25] MEDS: Jevity 1.5. 1,000 ML Bottle 240 ML GT ×5 (05:39→19:57)
[2019-08-25] MEDS: Acetaminophen 650 MG/20 ML UDC 1000 MG GT ×3 (05:39→19:54)
[2019-08-25] MEDS: Capsaicin 0.025% 1 APPLIC Tube TOPICAL ×3 (05:50→19:56)
[2019-08-25 07:00] VITALS: BP 142/77; PULSE 60; RESP 18; TEMP 36.6; O2SAT 95
[2019-08-25 07:01] LABS: Bedside Glucose 178 mg/dL (70-110)
[2019-08-25] MEDS: DULoxetine Hcl 60 MG Capsule PO (09:48)
[2019-08-25] MEDS: Carvedilol 12.5 MG Tablet GT ×2 (09:48→19:55)
[2019-08-25] MEDS: Famotidine 20 MG Tablet GT (09:48)
[2019-08-25] MEDS: APIXABAN 5 MG TABLET GT ×2 (09:48→19:56)
[2019-08-25] MEDS: Losartan Potassium 100 MG Tablet GT (09:48)
[2019-08-25] MEDS: Flecainide 100 MG Tablet GT ×2 (09:48→19:55)
[2019-08-25] MEDS: amLODIPine 10 MG Tablet PO (09:48)
[2019-08-25] MEDS: Loperamide 2 MG Capsule PO (09:49)
[2019-08-25] MEDS: Menthol/Lanolin/Calamine/Znox 113 GM Tube 1 APPLIC TOPICAL ×2 (09:50→19:56)
[2019-08-25 12:28] VITALS: BMI 23.8
[2019-08-25 19:30] VITALS: PULSE 66; RESP 16; O2SAT 96; BMI 23.8
[2019-08-25] MEDS: QUEtiapine 25 MG Tablet 50 MG GT (19:55)
[2019-08-25] MEDS: Atorvastatin Calcium 40 MG Tablet GT (19:55)
[2019-08-25] MEDS: Latanoprost 0.005% 1 Bottle 1 DRP EACH EYE (19:56)
[2019-08-25 20:01] VITALS: BP 131/71; PULSE 66; RESP 16; TEMP 36.8; O2SAT 96
--- NOTE | 2019-08-26 03:29 | NURSING ---
REVIEWED AND AGREE WITH AGRONOMY TEACHER'S FUNCTIONAL ASSESSMENT AND HANDOFF CHARTING.
[2019-08-26] MEDS: Capsaicin 0.025% 1 APPLIC Tube TOPICAL ×3 (05:45→20:28)
[2019-08-26] MEDS: Lidocaine/Prilocaine HCl 5 GM Tube 1 GM TOPICAL ×3 (05:45→20:27)
[2019-08-26] MEDS: Acetaminophen 650 MG/20 ML UDC 1000 MG GT ×3 (05:45→20:25)
[2019-08-26] MEDS: Jevity 1.5. 1,000 ML Bottle 240 ML GT ×5 (05:46→20:25)
[2019-08-26 06:30] LABS: Bedside Glucose 122 mg/dL (70-110)
--- NOTE | 2019-08-26 06:45 | PCM.PN.BLA ---
Progress Note Afebile VSS - BP's have been stable but, the BP this morning is 240/80 and on recheck /82 Maintaining appropriate oxygen saturation on RA Seen on Team rounds today. She is tired today......had many family members yesterday for a constitution party that went on for quite a while. Discussed with nursing - no problems that need addressed Reviewed the PT/OT/ST notes impulsivity continues to be a problem. Medication list reviewed. Blood sugar record was reviewed and blood sugars are well controlled. sleepy today Lungs - CTA Heart - RRR, no gallop abd- soft, NT, ND, normal BS's in all quadrants, PEG site is without erythema or DC. No residuals no peripheral edema Impressions 1. debility due to R MCA ischemic CVA due to a R MCA thrombus 2. DM II well controlled 3. Dysphagia - katlyn water and TF's Discussed on rounds setting a DC date. SW will update the insurance company. Son and DTR are aware. continue the current medications STROKE Vital Signs/Narrative: Vital Signs Temp Pulse Resp BP 08/26/19 06:00 63 211/82 H 08/26/19 05:00 98.8 F 58 L 20 H 240/80 H Code Visit Inpatient E&M: 44470 Subs Hosp L2
[2019-08-26 08:20] VITALS: BP 113/71; PULSE 66; RESP 16; TEMP 36.8; O2SAT 97
[2019-08-26] MEDS: DULoxetine Hcl 60 MG Capsule PO (09:52)
[2019-08-26] MEDS: Flecainide 100 MG Tablet GT ×2 (09:52→20:26)
[2019-08-26] MEDS: Losartan Potassium 100 MG Tablet GT (09:52)
[2019-08-26] MEDS: amLODIPine 10 MG Tablet PO (09:52)
[2019-08-26] MEDS: Loperamide 2 MG Capsule PO (09:52)
[2019-08-26] MEDS: Famotidine 20 MG Tablet GT (09:52)
[2019-08-26] MEDS: Menthol/Lanolin/Calamine/Znox 113 GM Tube 1 APPLIC TOPICAL ×2 (09:53→20:27)
[2019-08-26] MEDS: APIXABAN 5 MG TABLET GT ×2 (09:53→20:27)
[2019-08-26] MEDS: Carvedilol 12.5 MG Tablet GT ×2 (09:54→20:26)
--- NOTE | 2019-08-26 10:12 | CASEMGMT ---
Social Work IDT met with patient, daughter and son for Team Meeting. Discussed patient's progress in therapy. Pt is mod assist for sit to stand, better with trunk control, and walking with hemiwalker 20-45 ft but being very impulsive and poor safety and went back to walking with wall rail. Completed steps with max x2. Pt lacks safety awareness, mod assist for toilet transfers with cues, mod assist for UE ADLs, max to total for LE ADLS. ST is doing trials of puree textures and ice chips, working on left sided neglect. Pt still vey impulsive and struggling to complete tasks. Discussed DC plans as pt has remained consistent with progress. [facility]. Spoke with [facility] - sending updated clinicals and will discuss bed availability for DC date. Insurance update 08/27. Will continue to follow.
[2019-08-26 14:36] VITALS: BMI 23.8
[2019-08-26 20:20] VITALS: BP 120/66; PULSE 66; RESP 18; TEMP 36.8; O2SAT 97; BMI 23.8
[2019-08-26] MEDS: Latanoprost 0.005% 1 Bottle 1 DRP EACH EYE (20:25)
[2019-08-26] MEDS: QUEtiapine 25 MG Tablet 50 MG GT (20:26)
[2019-08-26] MEDS: Atorvastatin Calcium 40 MG Tablet GT (20:26)
--- NOTE | 2019-08-27 03:15 | NURSING ---
Reviewed and agree with SALES HOST documentation and charting.
[2019-08-27] MEDS: Jevity 1.5. 1,000 ML Bottle 240 ML GT ×5 (06:24→20:58)
[2019-08-27] MEDS: Acetaminophen 650 MG/20 ML UDC 1000 MG GT ×3 (06:24→20:54)
[2019-08-27 08:24] VITALS: BP 137/78; PULSE 65; RESP 16; TEMP 36.6; O2SAT 95
[2019-08-27] MEDS: Flecainide 100 MG Tablet GT ×2 (10:05→21:00)
[2019-08-27] MEDS: Famotidine 20 MG Tablet GT (10:05)
[2019-08-27] MEDS: Losartan Potassium 100 MG Tablet GT (10:05)
[2019-08-27] MEDS: APIXABAN 5 MG TABLET GT ×2 (10:05→20:54)
[2019-08-27] MEDS: DULoxetine Hcl 60 MG Capsule PO (10:05)
[2019-08-27] MEDS: amLODIPine 10 MG Tablet PO (10:05)
[2019-08-27] MEDS: Carvedilol 12.5 MG Tablet GT ×2 (10:06→20:54)
[2019-08-27] MEDS: Menthol/Lanolin/Calamine/Znox 113 GM Tube 1 APPLIC TOPICAL ×2 (10:07→20:54)
[2019-08-27 16:23] VITALS: BMI 23.8
[2019-08-27 19:11] LABS: Bedside Glucose 129 mg/dL (70-110)
[2019-08-27] MEDS: Atorvastatin Calcium 40 MG Tablet GT ×2 (19:49→20:54)
[2019-08-27] MEDS: QUEtiapine 25 MG Tablet 50 MG GT (19:49)
[2019-08-27] MEDS: Latanoprost 0.005% 1 Bottle 1 DRP EACH EYE (19:51)
[2019-08-27] MEDS: Lidocaine/Prilocaine HCl 5 GM Tube 1 GM TOPICAL (21:15)
[2019-08-27] MEDS: Capsaicin 0.025% 1 APPLIC Tube TOPICAL (21:18)
[2019-08-27 22:00] VITALS: BP 125/66; PULSE 67; RESP 18; TEMP 36.8; O2SAT 94
[2019-08-27 23:24] VITALS: BMI 23.8
[2019-08-28] MEDS: Acetaminophen 650 MG/20 ML UDC 1000 MG GT ×3 (05:20→20:02)
[2019-08-28] MEDS: Jevity 1.5. 1,000 ML Bottle 240 ML GT ×5 (05:20→20:08)
[2019-08-28] MEDS: Lidocaine/Prilocaine HCl 5 GM Tube 1 GM TOPICAL ×3 (05:29→20:01)
[2019-08-28] MEDS: Capsaicin 0.025% 1 APPLIC Tube TOPICAL ×3 (05:31→20:03)
[2019-08-28 08:52] VITALS: BP 122/70; PULSE 60; RESP 18; TEMP 36.8; O2SAT 94
[2019-08-28] MEDS: DULoxetine Hcl 60 MG Capsule PO (09:58)
[2019-08-28] MEDS: Famotidine 20 MG Tablet GT (09:58)
[2019-08-28] MEDS: amLODIPine 10 MG Tablet PO (09:58)
[2019-08-28] MEDS: Carvedilol 12.5 MG Tablet GT ×2 (09:58→20:01)
[2019-08-28] MEDS: Flecainide 100 MG Tablet GT ×2 (09:58→20:02)
[2019-08-28] MEDS: APIXABAN 5 MG TABLET GT ×2 (09:58→20:01)
[2019-08-28] MEDS: Losartan Potassium 100 MG Tablet GT (10:00)
[2019-08-28] MEDS: Menthol/Lanolin/Calamine/Znox 113 GM Tube 1 APPLIC TOPICAL ×2 (10:12→20:01)
[2019-08-28 15:46] VITALS: BMI 23.8
--- NOTE | 2019-08-28 16:45 | NURSING ---
pt sitting MP room doing a puzzle and listening to [employer] music.
[2019-08-28 17:11] LABS: Bedside Glucose 109 mg/dL (70-110)
--- NOTE | 2019-08-28 18:02 | PN_ITS ---
Subjective: Afebrile Vital signs stable Maintaining appropriate oxygen saturation on room air Last bowel movement was 08/26/2019. Patient denies constipation. Blood sugars are very well controlled. No hypoglycemia. - Physical Exam Vitals/I&O's: Vital Signs Temp Pulse Resp BP Pulse Ox 98.3 F 60 18 122/70 H 94 08/28/19 08:52 08/28/19 08:52 08/28/19 08:52 08/28/19 08:52 08/28/19 08:52 Oxygen Delivery Method Room Air Weight: 149 lb 0.52 oz Body Mass Index (BMI) 23.8 Finger Stick Blood Glucose 143 Orthostatic Vital Signs Start: 07/29/19 14:47 Freq: Status: Active Protocol: Activity Type Activity Date Activity User E-Sign Co-Sign Detail Recorded Client Recorded Date Recorded By Document 08/15/19 10:28 AG [id number] 08/15/19 10:29 AG 08/15/19 10:28 Orthostatic Vitals Standing -Blood Pressure (90/60-120/80 mm Hg) 123/69 H -Extremity Use Right Arm -Pulse Rate (60-100 beats/min) 72 Sitting -Blood Pressure (90/60-120/80 mm Hg) 131/81 H -Extremity Use Right Arm -Pulse Rate (60-100 beats/min) 69 Lying -Blood Pressure (90/60-120/80 mm Hg) 129/73 H -Extremity Use Right Arm -Pulse Rate (60-100 beats/min) 64 Intake and Output for Last 24 Hours 08/26/19 08/27/19 08/28/19 23:59 23:59 23:59 Intake Total 2160 / 2160 2340 / 2340 880 / 880 Output Total 1325 / 1325 900 / 900 1150 / 1150 Balance 835 / 835 1440 / 1440 -270 / -270 General: Alert, Cooperative, No apparent distress, - - confused but, pleasant and can be reoriented. HEENT: Atraumatic, PERRLA Oral: Moist Mucosa Neck: No Nodes, Trachea Midline Lungs: Clear to auscultation, Normal air movement Cardiovascular: Regular rate, Regular Rhythm, Normal S1, Normal S2, No Gallop Abdomen: Bowel Sounds Present, Soft, Non Tender, Non-Distended Extremities: No clubbing, No cyanosis, No edema Skin: - - PEG site is without erythema and without discharge Neurological: - - no change in the neuro exam Psych/Mental Status: Appropriate, Hallucinations - I do not know if she is hallucinating or is just not able to recognize faces Laboratory Results 08/27/19 19:07: POC Glucose 129 H 08/28/19 16:50: POC Glucose 109 Current Medications Acetaminophen (Tylenol Liquid) 1,000 mg GT TID FOR[facility], [facility]1983 Last Admin: 08/28/19 13:40 Dose: 1,000 mg Documented by: Amlodipine Besylate (Norvasc) 10 mg PO DAILY [facility], [facility]1983 Last Admin: 08/28/19 09:58 Dose: 10 mg Documented by: Apixaban (Eliquis) 5 mg GT BID [facility], [facility] Last Admin: 08/28/19 09:58 Dose: 5 mg Documented by: Atorvastatin Calcium (Lipitor) 40 mg GT QHS [facility], [facility] Last Admin: 08/27/19 20:54 Dose: 40 mg Documented by: Bisacodyl (Dulcolax) 10 mg RECTAL .PRN X 1 PRN PRN Reason: Constipation Calamine/Phenol (Calmoseptine Ointment) 1 applic TOPICAL BID [facility], [facility]; Protocol Last Admin: 08/28/19 10:12 Dose: 1 applicatio Documented by: Capsaicin (Zostrix) 1 applic TOPICAL TID [facility], [facility]; Protocol Last Admin: 08/28/19 13:39 Dose: 1 applicatio Documented by: Carvedilol (Coreg) 12.5 mg GT BID [facility], [facility] Last Admin: 08/28/19 09:58 Dose: 12.5 mg Documented by: Duloxetine HCl (Cymbalta) 60 mg PO DAILY [facility] Last Admin: 08/28/19 09:58 Dose: 60 mg Documented by: Enteral Nutritional Formula (Jevity 1.5) 240 ml GT 5X/DAY [facility] Last Admin: 08/28/19 17:47 Dose: 240 ml Documented by: Famotidine (Pepcid) 20 mg GT DAILY [facility] Last Admin: 08/28/19 09:58 Dose: 20 mg Documented by: Flecainide Acetate (Tambocor) 100 mg GT BID [facility] Last Admin: 08/28/19 09:58 Dose: 100 mg Documented by: Lactobacillus Acidophilus (Acidophilus) 1 tablet GT BID [facility] Last Admin: 08/28/19 09:58 Dose: 1 tablet Documented by: Latanoprost (Xalatan Opthalmic) 1 drop EACH EYE DAILY@2200 [facility], [facility] Last Admin: 08/27/19 19:51 Dose: 1 drop Documented by: Lidocaine/Prilocaine (Emla Cream W/Tegaderm) 1 gm TOPICAL TID [facility], [facility]; Protocol Last Admin: 08/28/19 13:40 Dose: 1 applicatio Documented by: Loperamide HCl (Imodium) 2 mg PO Q4H PRN PRN PRN Reason: DIARRHEA/LOOSE STOOLS Last Admin: 08/26/19 09:52 Dose: 2 mg Documented by: Losartan Potassium (Cozaar) 100 mg GT DAILY [facility] Last Admin: 08/28/19 10:00 Dose: 100 mg Documented by: Magnesium Hydroxide (Milk Of Magnesia) 30 ml PO .PRN X 1 PRN PRN Reason: Constipation Last Admin: 07/08/19 17:32 Dose: 30 ml Documented by: Multi-Ingredient Cream (Eucerin) 1 applic TOPICAL TID PRN PRN; Protocol PRN Reason: Dry Skin Potassium Chloride (Potassium Chl Soln) 20 meq GT BID [facility] Last Admin: 08/28/19 09:58 Dose: 20 meq Documented by: Quetiapine Fumarate (Seroquel) 50 mg GT DAILY@1999 [facility] Last Admin: 08/27/19 19:49 Dose: 50 mg Documented by: Sodium Chloride () 5 - 15 ml IV UD PRN PRN Reason: SALINE FLUSH Last Admin: 06/19/19 06:13 Dose: 10 ml Documented by: Medical Necessity - Tobacco Use Smoking Status: Never smoker Tobacco Use: Non-smoker Assessment/Plan All Active Problems (Last Reviewed 07/09/19 @ 07:57 by Kathi Shields) CVA (cerebral vascular accident) (Acute 05/2019) Impressions 1. 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 Patient is status thrombectomy on 05/23/[address] [facility] [address] Doll. She continues to improve with therapy 2. AF - on Flecanide and Coreg....and is in NSR 3. chronic anticoagulation with Eliquis 4. Last ECHO at [facility] with an estimated PA systolic of 60 but, recent TAMERA at [facility] states the PA pressure was 40-45. this is consistent with mild Pulmonary HTN. the EF was 65-70% 5. Dysphagia due to CVA 6. DM II - blood sugars are controlled. HGBA1C is 6.4%. BS this AM was 164 which is higher than it has been.....will check BS BID for the next few days and if none > 180 will DC accuchecks again. 7. HLD - on atorvastatin 40 mg daily. The last LDL recorded was 116 which is too high. Will need to repeat a liver panel and lipid panel 8. Qveqbylncjeo-vwzv-qvctivooor. ? whether she needs HCTZ? The BUN/CREAT ratio is quite high. Will check orthostatic VS's and if she is orthostatic will DC the HCTZ. In addition to hydrochlorothiazide she is also receiving losartan, amlodipine and Coreg for blood pressure control. 9. CAD 10. S/P PM 11. Anxiety/depression 12. Visual hallucinations.......seem to be improving with the increase in the Seroquel and so does her ability to focus but, the hallucinations are not completely gone......tolerating the increase in the Seroquel to 50 mg with no adverse effects. Seems to be helping....hourly shift has notice a big impro vement in her cooperation 13. S/P PEG 06/13/2019. 14. mild - moderate Pulmonary HTN - etiology? 15. Hx of iron deficiency anemia - has seen hematology in the past. HGB has been stable 16. OA with Left shoulder pain - injected by ortho but the pain recurred in a few days......started on EMLA cream and Zostrix and the pain improved significantly but, is still present. discussed with OT and pt has a sling but she is not using it. Will try a different type sling that will restrict movement of the L shoulder/arm when she is not doing therapy. Will also increase the Zostrix to TID....this has worked well and the pain is minimal and not all the time now 17. Hypokalemia - resolved 18. Metabolic alkalosis-more likely than not secondary to hydrochlorothiazide and hypokalemia. resolved with the aforementioned measures continue current meds Recheck lab weekly while on TF Code Visit Inpatient E&M: 61648 Subs Hosp L2
[2019-08-28 18:57] VITALS: BP 146/70; PULSE 68; RESP 16; TEMP 36.9; O2SAT 94
[2019-08-28] MEDS: QUEtiapine 25 MG Tablet 50 MG GT (20:00)
[2019-08-28] MEDS: Latanoprost 0.005% 1 Bottle 1 DRP EACH EYE (20:03)
[2019-08-28] MEDS: Atorvastatin Calcium 40 MG Tablet GT (20:10)
[2019-08-28 23:07] VITALS: BMI 23.8
--- NOTE | 2019-08-29 00:26 | NURSING ---
Reviewed and agree with LPNs handoff
[2019-08-29] MEDS: Jevity 1.5. 1,000 ML Bottle 240 ML GT ×5 (05:42→20:22)
[2019-08-29] MEDS: Lidocaine/Prilocaine HCl 5 GM Tube 1 GM TOPICAL ×3 (05:42→20:22)
[2019-08-29] MEDS: Capsaicin 0.025% 1 APPLIC Tube TOPICAL ×3 (05:43→20:26)
[2019-08-29] MEDS: Acetaminophen 650 MG/20 ML UDC 1000 MG GT ×3 (05:43→20:23)
[2019-08-29 06:25] LABS: Hemoglobin 11.5 g/dL (12.0-15.0); Mean Corp Hgb Conc 31.9 g/dL (32-36); Mean Corpuscular Hgb 30.5 pg (27.0-32.0); Mean Corpuscular Volume 95.5 fL (81-99); Mean Platelet Vol. 10.5 fl (6.2-12.0); Platelet Count 260 K/mm3 (150-450); RBC Distribution Width CV 16.6 % (11.6-14.6); RBC Distribution Width SD 57.4 fl (35.1-43.9); Red Blood Count 3.77 M/mm3 (4.2-5.4)
[2019-08-29 06:51] LABS: Anion Gap 5 (5-15); BUN 26 mg/dL (7-18); BUN/Creat Ratio 31.1 RATIO (10-20); Calcium,Total 9.4 mg/dL (8.5-10.1); Chloride 106 mmol/L (98-107); Creatinine, Serum 0.84 mg/dL (0.55-1.02); EST Glomerular Filtration Rate 70 mL/min (>60); Est Glom Filt Rate - Afr Amer 85 mL/min (>60); Estimated Creatinine Clearance 53.68 ml/min; Glucose 138 mg/dL (74-106); Magnesium 2.1 mg/dL (1.6-2.6); Phosphorus 3.5 mg/dL (2.5-4.9); Potassium 3.9 mmol/L (3.5-5.1); Sodium Level 141 mmol/L (136-145)
[2019-08-29 07:05] LABS: Bedside Glucose 190 mg/dL (70-110)
[2019-08-29 08:57] VITALS: BP 137/83; PULSE 73; RESP 16; TEMP 36.7; O2SAT 94
[2019-08-29] MEDS: Losartan Potassium 100 MG Tablet GT (09:25)
[2019-08-29] MEDS: APIXABAN 5 MG TABLET GT ×2 (09:25→20:22)
[2019-08-29] MEDS: amLODIPine 10 MG Tablet PO (09:25)
[2019-08-29] MEDS: Menthol/Lanolin/Calamine/Znox 113 GM Tube 1 APPLIC TOPICAL ×2 (09:25→20:22)
[2019-08-29] MEDS: Carvedilol 12.5 MG Tablet GT ×2 (09:25→20:22)
[2019-08-29] MEDS: DULoxetine Hcl 60 MG Capsule PO (09:25)
[2019-08-29] MEDS: Flecainide 100 MG Tablet GT ×2 (09:26→20:23)
[2019-08-29] MEDS: Famotidine 20 MG Tablet GT (09:26)
--- NOTE | 2019-08-29 11:42 | CASEMGMT ---
Social Work Insurance approved pt with [employer] 09/03. Will ReTeam 09/02. Spoke with [facility] Villalpandoe and family will need to meet with BOM about finances prior to approval for admission whom returns to work 09/02. Spoke with dexter Whitehead to relay information and schedule a time to meet as looking for DC prior to end of the week. Left a message with son, financial POA, of above. IDT aware. Will continue to follow. Shannan Mcclellan, CORPORATE LEGAL INTERN CASH ACCOUNTING CLERK
[2019-08-29 11:44] VITALS: BMI 23.8
[2019-08-29] MEDS: QUEtiapine 25 MG Tablet 50 MG GT (20:21)
[2019-08-29] MEDS: Latanoprost 0.005% 1 Bottle 1 DRP EACH EYE (20:23)
[2019-08-29] MEDS: Atorvastatin Calcium 40 MG Tablet GT (20:23)
[2019-08-29 22:00] VITALS: BP 130/62; PULSE 74; RESP 16; TEMP 36.8; O2SAT 96
[2019-08-30 00:28] VITALS: BMI 23.8
--- NOTE | 2019-08-30 01:37 | NURSING ---
Reviewed and agree with LPNs handoff
[2019-08-30] MEDS: Acetaminophen 650 MG/20 ML UDC 1000 MG GT ×3 (05:54→20:25)
[2019-08-30] MEDS: Lidocaine/Prilocaine HCl 5 GM Tube 1 GM TOPICAL ×3 (05:55→20:23)
[2019-08-30] MEDS: Capsaicin 0.025% 1 APPLIC Tube TOPICAL ×3 (05:55→20:25)
[2019-08-30] MEDS: Jevity 1.5. 1,000 ML Bottle 240 ML GT ×5 (05:55→20:28)
[2019-08-30 07:44] VITALS: BP 122/66; PULSE 60; RESP 16; TEMP 36.7; O2SAT 94
[2019-08-30] MEDS: Famotidine 20 MG Tablet GT (09:07)
[2019-08-30] MEDS: DULoxetine Hcl 60 MG Capsule PO (09:07)
[2019-08-30] MEDS: Losartan Potassium 100 MG Tablet GT (09:07)
[2019-08-30] MEDS: Menthol/Lanolin/Calamine/Znox 113 GM Tube 1 APPLIC TOPICAL ×2 (09:07→20:28)
[2019-08-30] MEDS: APIXABAN 5 MG TABLET GT ×2 (09:07→20:28)
[2019-08-30] MEDS: Carvedilol 12.5 MG Tablet GT ×2 (09:07→20:28)
[2019-08-30] MEDS: Flecainide 100 MG Tablet GT ×2 (09:07→20:27)
[2019-08-30] MEDS: amLODIPine 10 MG Tablet PO (09:07)
[2019-08-30 10:06] VITALS: BMI 23.8
--- NOTE | 2019-08-30 13:44 | PCM.PN.BLA ---
Progress Note Afebile VSS, blood pressure is well controlled Maintaining appropriate oxygen saturation on RA-94 to 96% on room air Remains afebrile except for Cristal water Discussed with nursing - no problems that need addressed Reviewed the PT/OT/ST notes Medication list reviewed. All labs from 08/29/2019 was personally reviewed. Hemoglobin is stable at 11.5. White blood cell and platelets are within normal limits. The BMP is remarkable for a BUN of 26 and a creatinine of 0.84. The BUN is down from 33 on 08/22/2019. Calcium, magnesium and phosphorus are all within normal limits. Potassium is 3.9. Alert and pleasant, NAD Lungs - CTA Heart - RRR Abdomen - soft, NT, ND, BS's present in all quadrants no edema, no calf tenderness Impressions 1. 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 Patient is status thrombectomy on 05/23/[address] [facility] [address] Doll. 2. AF - on Flecanide and Coreg. she has remained in NSR 3. chronic anticoagulation with Eliquis 4. Last ECHO at [facility] with an estimated PA systolic of 60 but, recent TAMERA at [facility] states the PA systolic pressure was 40-45. This is consistent with mild Pulmonary HTN. The EF was 65-70% 5. Dysphagia due to CVA - still NPO except for Cristal water 6. DM II - blood sugars are controlled. HGBA1C is 6.4%. 7. HLD - on atorvastatin 40 mg daily. The last LDL recorded was 116 which is too high. Will need to repeat a liver panel and lipid panel 8. Cbwqlfrbrjbm-gmkq-rlwujqkhlr. ? whether she needs HCTZ? The BUN/CREAT ratio is quite high. Will check orthostatic VS's and if she is orthostatic will DC the HCTZ. In addition to hydrochlorothiazide she is also receiving losartan, amlodipine and Coreg for blood pressure control. 9. CAD 10. S/P PM 11. Anxiety/depression 12. Visual hallucinations....... improved with the increase in the Seroquel. Will continue at the current dose 13. S/P PEG 06/13/2019. 14. mild - moderate Pulmonary HTN - etiology? 15. Hx of iron deficiency anemia - has seen hematology in the past. HGB has been stable Continue the current orders Code Visit Inpatient E&M: 21461 Subs Hosp L2
[2019-08-30 18:01] LABS: Bedside Glucose 96 mg/dL (70-110)
[2019-08-30] MEDS: QUEtiapine 25 MG Tablet 50 MG GT (19:24)
[2019-08-30 20:21] VITALS: BP 122/64; PULSE 60; RESP 16; TEMP 36.8; O2SAT 96
[2019-08-30] MEDS: Latanoprost 0.005% 1 Bottle 1 DRP EACH EYE (20:25)
[2019-08-30] MEDS: Atorvastatin Calcium 40 MG Tablet GT (20:28)
[2019-08-31] MEDS: Lidocaine/Prilocaine HCl 5 GM Tube 1 GM TOPICAL ×3 (06:21→19:51)
[2019-08-31] MEDS: Acetaminophen 650 MG/20 ML UDC 1000 MG GT ×3 (06:24→19:48)
[2019-08-31] MEDS: Capsaicin 0.025% 1 APPLIC Tube TOPICAL ×3 (06:24→19:47)
[2019-08-31] MEDS: Jevity 1.5. 1,000 ML Bottle 240 ML GT ×5 (06:26→19:50)
[2019-08-31 06:40] LABS: Bedside Glucose 97 mg/dL (70-110)
[2019-08-31 08:13] VITALS: BP 130/81; PULSE 70; RESP 16; TEMP 36.5; O2SAT 95
[2019-08-31] MEDS: APIXABAN 5 MG TABLET GT ×2 (10:12→19:47)
[2019-08-31] MEDS: amLODIPine 10 MG Tablet PO (10:12)
[2019-08-31] MEDS: Loperamide 2 MG Capsule PO (10:12)
[2019-08-31] MEDS: Famotidine 20 MG Tablet GT (10:13)
[2019-08-31] MEDS: Losartan Potassium 100 MG Tablet GT (10:13)
[2019-08-31] MEDS: Menthol/Lanolin/Calamine/Znox 113 GM Tube 1 APPLIC TOPICAL ×2 (10:13→19:46)
[2019-08-31] MEDS: Flecainide 100 MG Tablet GT ×2 (10:19→19:49)
[2019-08-31] MEDS: DULoxetine Hcl 60 MG Capsule PO (10:19)
[2019-08-31] MEDS: Carvedilol 12.5 MG Tablet GT ×2 (10:19→19:46)
[2019-08-31 13:50] VITALS: BMI 23.8
[2019-08-31 15:15] VITALS: BP 140/70
--- NOTE | 2019-08-31 17:30 | PCM.PN.HOSP ---
Reason for Visit: F/U CVA Subjective: Doing well. Still with left sided weakness in LUE. Vitals/I&O's: Vital Signs Temp Pulse Resp BP Pulse Ox 36.5 C L 70 16 130/81 H 95 08/31/19 08:13 08/31/19 08:13 08/31/19 08:13 08/31/19 08:13 08/31/19 08:13 Oxygen Delivery Method Room Air Weight: 67.9 kg Body Mass Index (BMI) 23.8 Finger Stick Blood Glucose 143 Orthostatic Vital Signs Start: 07/29/19 14:47 Freq: Status: Active Protocol: Activity Type Activity Date Activity User E-Sign Co-Sign Detail Recorded Client Recorded Date Recorded By Document 08/15/19 10:28 AG [id number] 08/15/19 10:29 AG 08/15/19 10:28 Orthostatic Vitals Standing -Blood Pressure (90/60-120/80) 123/69 H -Extremity Use Right Arm -Pulse Rate (60-100) 72 Sitting -Blood Pressure (90/60-120/80) 131/81 H -Extremity Use Right Arm -Pulse Rate (60-100) 69 Lying -Blood Pressure (90/60-120/80) 129/73 H -Extremity Use Right Arm -Pulse Rate (60-100) 64 Intake and Output for Last 24 Hours 08/29/19 08/30/19 08/31/19 23:59 23:59 23:59 Intake Total 1949 / 1949 1949 / 1949 390 / 390 Output Total 1150 / 1150 625 / 625 850 / 850 Balance 800 / 800 1325 / 1325 -460 / -460 General: Alert, No apparent distress HEENT: Atraumatic, Normocephalic Oral: Moist Mucosa, No Gingival or Mucosal Lesions/ Ulcerations Neck: No Nodes, Trachea Midline Lungs: Clear to auscultation, Normal air movement, No rhonchi, No wheeze, No rales Cardiovascular: Regular rate, Regular Rhythm, Normal S1, Normal S2, No murmurs Abdomen: Bowel Sounds Present, Soft, Non Tender, Non-Distended, No Hepato-splenomegaly Extremities: No edema, No Calf Tenderness Musculoskeletal: Cachexia, Muscle Wasting Neurological: - - MS 1/5 in LUE. 5/5 in LLE Psych/Mental Status: Normal Affect, Appropriate Laboratory Results 08/30/19 17:47: POC Glucose 96 08/31/19 06:34: POC Glucose 97 Current Medications Acetaminophen (Tylenol Liquid) 1,000 mg GT TID [facility] Last Admin: 08/31/19 13:11 Dose: 1,000 mg Documented by: Amlodipine Besylate (Norvasc) 10 mg PO DAILY [facility] Last Admin: 08/31/19 10:12 Dose: 10 mg Documented by: Apixaban (Eliquis) 5 mg GT BID [facility] Last Admin: 08/31/19 10:12 Dose: 5 mg Documented by: Atorvastatin Calcium (Lipitor) 40 mg GT QHS [facility] Last Admin: 08/30/19 20:28 Dose: 40 mg Documented by: Bisacodyl (Dulcolax) 10 mg RECTAL .PRN X 1 PRN PRN Reason: Constipation Calamine/Phenol (Calmoseptine Ointment) 1 applic TOPICAL BID [facility]; Protocol Last Admin: 08/31/19 10:13 Dose: 1 applicatio Documented by: Capsaicin (Zostrix) 1 applic TOPICAL TID [facility]; Protocol Last Admin: 08/31/19 13:24 Dose: 1 applicatio Documented by: Carvedilol (Coreg) 12.5 mg GT BID [facility] Last Admin: 08/31/19 10:19 Dose: 12.5 mg Documented by: Duloxetine HCl (Cymbalta) 60 mg PO DAILY [facility] Last Admin: 08/31/19 10:19 Dose: 60 mg Documented by: Enteral Nutritional Formula (Jevity 1.5) 240 ml GT 5X/DAY [facility] Last Admin: 08/31/19 13:17 Dose: 240 ml Documented by: Famotidine (Pepcid) 20 mg GT DAILY [facility] Last Admin: 08/31/19 10:13 Dose: 20 mg Documented by: Flecainide Acetate (Tambocor) 100 mg GT BID [facility] Last Admin: 08/31/19 10:19 Dose: 100 mg Documented by: Lactobacillus Acidophilus (Acidophilus) 1 tablet GT BID [facility] Last Admin: 08/31/19 10:13 Dose: 1 tablet Documented by: Latanoprost (Xalatan Opthalmic) 1 drop EACH EYE DAILY@2200 [facility] Last Admin: 08/30/19 20:25 Dose: 1 drop Documented by: Lidocaine/Prilocaine (Emla Cream W/Tegaderm) 1 gm TOPICAL TID [facility]; Protocol Last Admin: 08/31/19 13:11 Dose: 1 applicatio Documented by: Loperamide HCl (Imodium) 2 mg PO Q4H PRN PRN PRN Reason: DIARRHEA/LOOSE STOOLS Last Admin: 08/31/19 10:12 Dose: 2 mg Documented by: Losartan Potassium (Cozaar) 100 mg GT DAILY [facility] Last Admin: 08/31/19 10:13 Dose: 100 mg Documented by: Magnesium Hydroxide (Milk Of Magnesia) 30 ml PO .PRN X 1 PRN PRN Reason: Constipation Last Admin: 07/08/19 17:32 Dose: 30 ml Documented by: Multi-Ingredient Cream (Eucerin) 1 applic TOPICAL TID PRN PRN; Protocol PRN Reason: Dry Skin Potassium Chloride (Potassium Chl Soln) 20 meq GT BID [facility] Last Admin: 08/31/19 10:12 Dose: 20 meq Documented by: Quetiapine Fumarate (Seroquel) 50 mg GT DAILY@1999 [facility] Last Admin: 08/30/19 19:24 Dose: 50 mg Documented by: Sodium Chloride () 5 - 15 ml IV UD PRN PRN Reason: SALINE FLUSH Last Admin: 06/19/19 06:13 Dose: 10 ml Documented by: Medical Necessity - Tobacco Use Smoking Status: Never smoker Tobacco Use: Non-smoker Assessment/Plan All Active Problems (Last Reviewed 07/09/19 @ 07:57 by Kathi Shields) CVA (cerebral vascular accident) (Acute 05/2019) Assessment: 1. R MCA CVA 2. Afib 3. Dysphagia 4. DM2-stable 5. HTN-stable 6 Hallucinations stable Plan: 1. continue apixaban and flecainide for afib 2. BP control w amlodipine, carvedilol 3. Continue NPO and ST Code Visit Inpatient E&M: 39128 Subs Hosp L2
[2019-08-31 18:41] VITALS: BP 142/80; PULSE 68; RESP 16; TEMP 36.7; O2SAT 96
[2019-08-31] MEDS: QUEtiapine 25 MG Tablet 50 MG GT (19:45)
[2019-08-31] MEDS: Latanoprost 0.005% 1 Bottle 1 DRP EACH EYE (19:48)
[2019-08-31] MEDS: Atorvastatin Calcium 40 MG Tablet GT (19:50)
[2019-08-31 20:27] VITALS: BMI 23.8
[2019-08-31 22:00] VITALS: PULSE 68; RESP 16; O2SAT 96
[2019-09-01] MEDS: Lidocaine/Prilocaine HCl 5 GM Tube 1 GM TOPICAL ×3 (06:36→19:48)
[2019-09-01] MEDS: Acetaminophen 650 MG/20 ML UDC 1000 MG GT ×3 (06:37→19:49)
[2019-09-01] MEDS: Jevity 1.5. 1,000 ML Bottle 240 ML GT ×5 (06:37→19:49)
[2019-09-01] MEDS: Capsaicin 0.025% 1 APPLIC Tube TOPICAL ×3 (06:37→19:50)
[2019-09-01] MEDS: Loperamide 2 MG Capsule PO (08:08)
[2019-09-01] MEDS: APIXABAN 5 MG TABLET GT ×2 (08:08→19:48)
[2019-09-01] MEDS: amLODIPine 10 MG Tablet PO (08:08)
[2019-09-01] MEDS: Famotidine 20 MG Tablet GT (08:08)
[2019-09-01] MEDS: Losartan Potassium 100 MG Tablet GT (08:08)
[2019-09-01] MEDS: DULoxetine Hcl 60 MG Capsule PO (08:08)
[2019-09-01] MEDS: Flecainide 100 MG Tablet GT ×2 (08:09→19:49)
[2019-09-01] MEDS: Carvedilol 12.5 MG Tablet GT ×2 (08:09→19:48)
[2019-09-01 10:00] VITALS: BP 118/71; PULSE 71; RESP 16; TEMP 36.7; O2SAT 95
[2019-09-01] MEDS: Menthol/Lanolin/Calamine/Znox 113 GM Tube 1 APPLIC TOPICAL ×2 (11:01→19:47)
[2019-09-01 14:20] VITALS: BP 128/72
[2019-09-01 16:00] VITALS: BMI 23.8
[2019-09-01 16:51] LABS: Bedside Glucose 90 mg/dL (70-110)
[2019-09-01 18:51] VITALS: BP 136/76; PULSE 67; RESP 16; TEMP 36.7; O2SAT 97
[2019-09-01] MEDS: QUEtiapine 25 MG Tablet 50 MG GT (19:47)
[2019-09-01] MEDS: Atorvastatin Calcium 40 MG Tablet GT (19:49)
[2019-09-01] MEDS: Latanoprost 0.005% 1 Bottle 1 DRP EACH EYE (19:50)
--- NOTE | 2019-09-01 20:24 | NURSING ---
per pt request, meds provided early to enable early bedrest and uninterrupted sleep.
[2019-09-01 20:26] VITALS: BMI 23.8
[2019-09-01 22:00] VITALS: PULSE 67; RESP 16; O2SAT 97
[2019-09-02] MEDS: Capsaicin 0.025% 1 APPLIC Tube TOPICAL ×3 (05:44→20:05)
[2019-09-02] MEDS: Jevity 1.5. 1,000 ML Bottle 240 ML GT ×5 (05:45→20:09)
[2019-09-02] MEDS: Lidocaine/Prilocaine HCl 5 GM Tube 1 GM TOPICAL ×3 (05:45→20:10)
[2019-09-02] MEDS: Acetaminophen 650 MG/20 ML UDC 1000 MG GT ×3 (05:45→20:06)
[2019-09-02 07:15] VITALS: BP 126/74; PULSE 67; RESP 16; TEMP 36.4; O2SAT 95
[2019-09-02 08:26] LABS: Bedside Glucose 154 mg/dL (70-110)
[2019-09-02] MEDS: Famotidine 20 MG Tablet GT (09:32)
[2019-09-02] MEDS: DULoxetine Hcl 60 MG Capsule PO (09:32)
[2019-09-02] MEDS: amLODIPine 10 MG Tablet PO (09:32)
[2019-09-02] MEDS: Carvedilol 12.5 MG Tablet GT ×2 (09:32→20:14)
[2019-09-02] MEDS: Flecainide 100 MG Tablet GT ×2 (09:32→20:07)
[2019-09-02] MEDS: APIXABAN 5 MG TABLET GT ×2 (09:32→20:13)
[2019-09-02] MEDS: Losartan Potassium 100 MG Tablet GT (09:32)
[2019-09-02] MEDS: Menthol/Lanolin/Calamine/Znox 113 GM Tube 1 APPLIC TOPICAL ×2 (09:33→20:14)
[2019-09-02 12:05] VITALS: BMI 23.8
--- NOTE | 2019-09-02 16:39 | CASEMGMT ---
Team meeting held today with pt, son and daughter present. Pt continues to progress with PT/OT/ST. Pt insurance update is due tomorrow and pt and family aware that continued stay is not guaranteed. Family states they plan to speak with the franchise business consultant at [facility] today and will call SW after this conversation to discuss construction crew member placement for pt. Will continue with treatment plan at this time and reteam next week. SW will follow for discharge planning. DAVID Liu
[2019-09-02 19:38] VITALS: BP 131/89; PULSE 87; RESP 18; TEMP 36.7; O2SAT 95
[2019-09-02] MEDS: Latanoprost 0.005% 1 Bottle 1 DRP EACH EYE (20:06)
[2019-09-02] MEDS: Atorvastatin Calcium 40 MG Tablet GT (20:08)
[2019-09-02] MEDS: QUEtiapine 25 MG Tablet 50 MG GT (20:14)
[2019-09-02 22:00] VITALS: PULSE 87; RESP 17; O2SAT 95; BMI 23.8
[2019-09-03] MEDS: Lidocaine/Prilocaine HCl 5 GM Tube 1 GM TOPICAL ×2 (05:12→14:42)
[2019-09-03] MEDS: Jevity 1.5. 1,000 ML Bottle 240 ML GT ×5 (05:12→20:34)
[2019-09-03] MEDS: Acetaminophen 650 MG/20 ML UDC 1000 MG GT ×3 (05:12→20:27)
[2019-09-03] MEDS: Capsaicin 0.025% 1 APPLIC Tube TOPICAL ×2 (05:13→14:42)
[2019-09-03 07:50] VITALS: BP 135/81; PULSE 69; RESP 16; TEMP 36.5; O2SAT 95
--- NOTE | 2019-09-03 10:05 | PN_ITS ---
Subjective: this is a late entry for 08/23. Pt was seen on TEAM rounds. Son and dtr were present for rounds. Afebrile Vital signs stable Maintaining an oxygen saturation of 95% to 97% on room air weight has increased from 138 pounds and 4 ounces on 06/12/2019 to 148 pounds and 2.5 ounces on 09/03/2019. Reviewed PT/OT/ST notes. Blood sugar record was reviewed. BS's are well controlled No complaints from the pt today. - Physical Exam Vitals/I&O's: Vital Signs Temp Pulse Resp BP Pulse Ox 97.7 F L 69 16 135/81 H 95 09/03/19 07:50 09/03/19 07:50 09/03/19 07:50 09/03/19 07:50 09/03/19 07:50 Oxygen Delivery Method Room Air Weight: 148 lb 2.41 oz Body Mass Index (BMI) 23.8 Finger Stick Blood Glucose 143 Orthostatic Vital Signs Start: 07/29/19 14:47 Freq: Status: Active Protocol: Activity Type Activity Date Activity User E-Sign Co-Sign Detail Recorded Client Recorded Date Recorded By Document 08/15/19 10:28 AG [id number] 08/15/19 10:29 AG 08/15/19 10:28 Orthostatic Vitals Standing -Blood Pressure (90/60-120/80 mm Hg) 123/69 H -Extremity Use Right Arm -Pulse Rate (60-100 beats/min) 72 Sitting -Blood Pressure (90/60-120/80 mm Hg) 131/81 H -Extremity Use Right Arm -Pulse Rate (60-100 beats/min) 69 Lying -Blood Pressure (90/60-120/80 mm Hg) 129/73 H -Extremity Use Right Arm -Pulse Rate (60-100 beats/min) 64 Intake and Output for Last 24 Hours 09/01/19 09/02/19 09/03/19 23:59 23:59 23:59 Intake Total 2830 / 2830 1999 / 1999 390 / 390 Output Total 2150 / 2150 650 / 650 300 / 300 Balance 680 / 680 1350 / 1350 90 / 90 General: Alert, Oriented x3, Cooperative, No apparent distress, Well developed, Well nourished HEENT: Atraumatic, PERRLA, EOMI Neck: Supple, No Nodes, Trachea Midline Lungs: Clear to auscultation, Normal air movement, No rhonchi, No wheeze, No rales Cardiovascular: Regular rate, Regular Rhythm, Normal S1, Normal S2, No Gallop Abdomen: Bowel Sounds Present, Soft, Non Tender, Non-Distended, - - The PEG site is clean, without erythema, and there is no purulent discharge Extremities: No clubbing, No cyanosis, No edema, - - she was doing leg extensions with 3 lb weights when I entered the room Skin: No rashes, No breakdown Musculoskeletal: - - [she is tolerating the brace for the LUE well without any compalints and she feels it is helping her Neurological: - - no change other than increasing strength in the RLE......still pretty weak in the LUE but the audio visual collections coordinator is improving. Psych/Mental Status: Normal Affect, Appropriate Current Medications Acetaminophen (Tylenol Liquid) 1,000 mg GT TID [facility] Last Admin: 09/03/19 05:12 Dose: 1,000 mg Documented by: Amlodipine Besylate (Norvasc) 10 mg PO DAILY [facility] Last Admin: 09/02/19 09:32 Dose: 10 mg Documented by: Apixaban (Eliquis) 5 mg GT BID [facility] Last Admin: 09/02/19 20:13 Dose: 5 mg Documented by: Atorvastatin Calcium (Lipitor) 40 mg GT QHS [facility] Last Admin: 09/02/19 20:08 Dose: 40 mg Documented by: Bisacodyl (Dulcolax) 10 mg RECTAL .PRN X 1 PRN PRN Reason: Constipation Calamine/Phenol (Calmoseptine Ointment) 1 applic TOPICAL BID [facility]; Protocol Last Admin: 09/02/19 20:14 Dose: 1 applicatio Documented by: Capsaicin (Zostrix) 1 applic TOPICAL TID [facility]; Protocol Last Admin: 09/03/19 05:13 Dose: 1 applicatio Documented by: Carvedilol (Coreg) 12.5 mg GT BID [facility] Last Admin: 09/02/19 20:14 Dose: 12.5 mg Documented by: Duloxetine HCl (Cymbalta) 60 mg PO DAILY [facility] Last Admin: 09/02/19 09:32 Dose: 60 mg Documented by: Enteral Nutritional Formula (Jevity 1.5) 240 ml GT 5X/DAY [facility] Last Admin: 09/03/19 05:12 Dose: 240 ml Documented by: Famotidine (Pepcid) 20 mg GT DAILY [facility] Last Admin: 09/02/19 09:32 Dose: 20 mg Documented by: Flecainide Acetate (Tambocor) 100 mg GT BID [facility] Last Admin: 09/02/19 20:07 Dose: 100 mg Documented by: Lactobacillus Acidophilus (Acidophilus) 1 tablet GT BID [facility] Last Admin: 09/02/19 20:14 Dose: 1 tablet Documented by: Latanoprost (Xalatan Opthalmic) 1 drop EACH EYE DAILY@2200 [facility] Last Admin: 09/02/19 20:06 Dose: 1 drop Documented by: Lidocaine/Prilocaine (Emla Cream W/Tegaderm) 1 gm TOPICAL TID [facility]; Protocol Last Admin: 09/03/19 05:12 Dose: 1 applicatio Documented by: Loperamide HCl (Imodium) 2 mg PO Q4H PRN PRN PRN Reason: DIARRHEA/LOOSE STOOLS Last Admin: 09/01/19 08:08 Dose: 2 mg Documented by: Losartan Potassium (Cozaar) 100 mg GT DAILY [facility] Last Admin: 09/02/19 09:32 Dose: 100 mg Documented by: Magnesium Hydroxide (Milk Of Magnesia) 30 ml PO .PRN X 1 PRN PRN Reason: Constipation Last Admin: 07/08/19 17:32 Dose: 30 ml Documented by: Multi-Ingredient Cream (Eucerin) 1 applic TOPICAL TID PRN PRN; Protocol PRN Reason: Dry Skin Potassium Chloride (Potassium Chl Soln) 20 meq GT BID [facility] Last Admin: 09/02/19 20:08 Dose: 20 meq Documented by: Quetiapine Fumarate (Seroquel) 50 mg GT DAILY@1999 [facility] Last Admin: 09/02/19 20:14 Dose: 50 mg Documented by: Sodium Chloride () 5 - 15 ml IV UD PRN PRN Reason: SALINE FLUSH Last Admin: 06/19/19 06:13 Dose: 10 ml Documented by: Medical Necessity - Tobacco Use Smoking Status: Never smoker Tobacco Use: Non-smoker Assessment/Plan All Active Problems (Last Reviewed 07/09/19 @ 07:57 by Kathi Shields) CVA (cerebral vascular accident) (Acute 05/2019) Impressions 1. 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 Patient is status thrombectomy on 05/23/[address] [facility] [address] Doll. She continues to improve with therapy 2. AF - on Flecanide and Coreg....and is in NSR 3. chronic anticoagulation with Eliquis 4. Last ECHO at [facility] with an estimated PA systolic of 60 but, recent TAMERA at [facility] states the PA pressure was 40-45. this is consistent with mild Pulmonary HTN. the EF was 65-70% 5. Dysphagia due to CVA 6. DM II - blood sugars are controlled. HGBA1C is 6.4%. BS this AM was 164 which is higher than it has been.....will check BS BID for the next few days and if none > 180 will DC accuchecks again. 7. HLD - on atorvastatin 40 mg daily. The last LDL recorded was 116 which is too high. Will need to repeat a liver panel and lipid panel 8. [id number]. ? whether she needs HCTZ? The BUN/CREAT ratio is quite high. Will check orthostatic VS's and if she is orthostatic will DC the HCTZ. In addition to hydrochlorothiazide she is also receiving losartan, amlodipine and Coreg for blood pressure control. 9. CAD 10. S/P PM 11. Anxiety/depression 12. Visual hallucinations.......seem to be improving with the increase in the Seroquel and so does her ability to focus but, the hallucinations are not completely gone......tolerating the increase in the Seroquel to 50 mg with no adverse effects. 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 S/P PEG 06/13/2019. 14. mild - moderate Pulmonary HTN - etiology? 15. Hx of iron deficiency anemia - has seen hematology in the past. HGB has been stable 16. OA with Left shoulder pain - injected by ortho but the pain recurred in a few days......started on EMLA cream and Zostrix and the pain improved significantly but, is still present. discussed with OT and pt has a sling but she is not using it. Will try a different type sling that will restrict movement of the L shoulder/arm when she is not doing therapy. Will also increase the Zostrix to TID....this has worked well and the pain is minimal and not all the time now 17. Hypokalemia - resolved 18. Metabolic alkalosis-more likely than not secondary to hydrochlorothiazide and hypokalemia. resolved with the aforementioned measures continue current meds check lab on she has gained 10 lbs since admission to rehab. Will ask the store receiver to reassess the amount of calories she needs. Answered all questions form the patient and her children. Aleah Villalpando will take Gloria when she is ready for discharge but, will need to talk with the family about financial arrangements. Code Visit Inpatient E&M: 91087 Subs Hosp L2
[2019-09-03] MEDS: APIXABAN 5 MG TABLET GT ×2 (11:05→20:27)
[2019-09-03] MEDS: DULoxetine Hcl 60 MG Capsule PO (11:05)
[2019-09-03] MEDS: Flecainide 100 MG Tablet GT ×2 (11:05→20:28)
[2019-09-03] MEDS: Losartan Potassium 100 MG Tablet GT (11:05)
[2019-09-03] MEDS: Famotidine 20 MG Tablet GT (11:05)
[2019-09-03] MEDS: amLODIPine 10 MG Tablet PO (11:05)
[2019-09-03] MEDS: Carvedilol 12.5 MG Tablet GT ×2 (11:05→20:29)
[2019-09-03] MEDS: Menthol/Lanolin/Calamine/Znox 113 GM Tube 1 APPLIC TOPICAL ×2 (11:17→20:31)
[2019-09-03 12:49] VITALS: BMI 23.8
--- NOTE | 2019-09-03 16:08 | CASEMGMT ---
Social Work Phone call placed to pt dgt DHEERAJ Whitehead to discuss discharge plan. BIA inquired if family met with [facility] and Charley confirmed that pt dgt Prerna did go to [facility] yesterday and met with Hiv/Aids Care Nurse. Charley also states Prerna would like to take pt to pt home with private duty home health aides. Charley is aware that pt will need 24 hour hands on care and she does not feel family can provide this and that pt will need to go to ECF. Per Charley, family in conflict over discharge plan. It is Charley's understanding that [facility] can accept pt. SW informed Charley that SW will be in contact with Charley on for d/c decision and Charley agrees this is reasonable. SW placed phone call to [facility] to verify if they can accept pt. Admissions is gone for the day and will be back on . SW to follow up. DAVID Liu
[2019-09-03 16:56] LABS: Bedside Glucose 146 mg/dL (70-110)
[2019-09-03 19:06] VITALS: BP 124/74; PULSE 76; RESP 16; TEMP 36.3; O2SAT 94
[2019-09-03] MEDS: QUEtiapine 25 MG Tablet 50 MG GT (20:28)
[2019-09-03] MEDS: Atorvastatin Calcium 40 MG Tablet GT (20:29)
[2019-09-03] MEDS: Latanoprost 0.005% 1 Bottle 1 DRP EACH EYE (20:29)
[2019-09-04 00:53] VITALS: BMI 23.8
[2019-09-04] MEDS: Lidocaine/Prilocaine HCl 5 GM Tube 1 GM TOPICAL ×3 (06:24→20:23)
[2019-09-04] MEDS: Capsaicin 0.025% 1 APPLIC Tube TOPICAL ×3 (06:25→20:25)
[2019-09-04] MEDS: Acetaminophen 650 MG/20 ML UDC 1000 MG GT ×3 (06:25→20:24)
[2019-09-04] MEDS: Jevity 1.5. 1,000 ML Bottle 240 ML GT ×5 (06:27→20:23)
[2019-09-04 06:45] LABS: Bedside Glucose 102 mg/dL (70-110)
[2019-09-04 07:36] VITALS: BP 119/71; PULSE 68; RESP 18; TEMP 36.7; O2SAT 95
[2019-09-04 08:58] VITALS: BMI 23.8
[2019-09-04] MEDS: Menthol/Lanolin/Calamine/Znox 113 GM Tube 1 APPLIC TOPICAL ×2 (09:05→20:23)
[2019-09-04] MEDS: Carvedilol 12.5 MG Tablet GT ×2 (09:07→20:23)
[2019-09-04] MEDS: Losartan Potassium 100 MG Tablet GT (09:07)
[2019-09-04] MEDS: amLODIPine 10 MG Tablet PO (09:07)
[2019-09-04] MEDS: APIXABAN 5 MG TABLET GT ×2 (09:07→20:23)
[2019-09-04] MEDS: Flecainide 100 MG Tablet GT ×2 (09:07→20:24)
[2019-09-04] MEDS: DULoxetine Hcl 60 MG Capsule PO (09:07)
[2019-09-04] MEDS: Famotidine 20 MG Tablet GT (09:08)
[2019-09-04] MEDS: QUEtiapine 25 MG Tablet 50 MG GT (20:22)
[2019-09-04] MEDS: Latanoprost 0.005% 1 Bottle 1 DRP EACH EYE (20:24)
[2019-09-04] MEDS: Atorvastatin Calcium 40 MG Tablet GT (20:24)
--- NOTE | 2019-09-04 20:47 | NURSING ---
pt picking at skin this hs. when this nurse was dumping pt wash basin, this nurse returns to a dime sized area on pt right R hogan bleeding. pt states she picked area off. area cleansed with soap and water and covered with nonstick dressing and kerlix. pt's anti-itch lotion applied to skin to prevent further itching. will continue to monitor
[2019-09-04 22:00] VITALS: BP 135/74; PULSE 62; RESP 18; TEMP 36.9; O2SAT 95
[2019-09-04 23:56] VITALS: BMI 23.8
--- NOTE | 2019-09-05 | RAD_ITS ---
STUDY: SWALLOWING STUDY REASON FOR EXAM: Female, 79 years old. dysphagia, fluoro time 222 sec, 21.53 MGY, 3276 images TECHNIQUE: The examination was performed with Speech Pathology in attendance. Under fluoroscopic observation, the patient ingested thin barium, thick barium, barium pudding, and barium coated cracker. FLUOROSCOPY TIME: 3:42 minutes/seconds RADIOLOGIST INVOLVEMENT: Radiologist was present and providing direct supervision. COMPARISON: June 11, 2019. FINDINGS: The following was observed during swallowing of the various mixtures of barium: Honey thick Barium: Mild vestibular penetration and mild landen aspiration with patient in neutral position. No similar findings during chin tuck. Thick Barium: There was no evidence of aspiration or laryngeal penetration. Barium Pudding: There was no evidence of aspiration or laryngeal penetration. Barium Coated Cracker: There was no evidence of aspiration or laryngeal penetration. RAD/Swallowing Function w/Video IMPRESSION: Vestibular penetration and landen aspiration with patient in neutral position. No similar findings during chin tuck. Fluoroscopy services provided for clinical procedure. Please refer to speech therapist''s procedure note for additional detail. Electronically Signed: Joe Lang MD at 12:37 EST , Service support ,
--- NOTE | 2019-09-05 01:37 | NURSING ---
REVIEWED AND AGREE WITH [employer] REGISTRAR'S FUNCTIONAL ASSESSMENT AND HANDOFF CHARTING.
[2019-09-05 05:57] LABS: Hematocrit 35.5 % (37-47); Hemoglobin 11.4 g/dL (12.0-15.0); Mean Corp Hgb Conc 32.1 g/dL (32-36); Mean Corpuscular Hgb 29.8 pg (27.0-32.0); Mean Corpuscular Volume 92.7 fL (81-99); Mean Platelet Vol. 10.7 fl (6.2-12.0); Platelet Count 269 K/mm3 (150-450); RBC Distribution Width CV 16.5 % (11.6-14.6); RBC Distribution Width SD 56.3 fl (35.1-43.9); Red Blood Count 3.83 M/mm3 (4.2-5.4); White Blood Count 5.3 K/mm3 (4.4-11.0)
[2019-09-05 06:19] LABS: AST(SGOT) 31 U/L (15-37); Alanine Aminotransfer ALT/SGPT 41 U/L (13-56); Albumin, Serum 3.2 g/dL (3.2-5.0); Alkaline Phosphatase 85 U/L (45-117); Anion Gap 6 (5-15); BUN 26 mg/dL (7-18); BUN/Creat Ratio 29.6 RATIO (10-20); Calcium,Total 9.2 mg/dL (8.5-10.1); Chloride 105 mmol/L (98-107); Creatinine, Serum 0.88 mg/dL (0.55-1.02); EST Glomerular Filtration Rate 66 mL/min (>60); Est Glom Filt Rate - Afr Amer 80 mL/min (>60); Estimated Creatinine Clearance 51.24 ml/min; Globulin 3.3 g/dL (2.2-4.2); Glucose 92 mg/dL (74-106); Magnesium 2.1 mg/dL (1.6-2.6); Phosphorus 3.8 mg/dL (2.5-4.9); Protein, Total 6.5 g/dL (6.4-8.2); Sodium Level 141 mmol/L (136-145)
[2019-09-05] MEDS: Lidocaine/Prilocaine HCl 5 GM Tube 1 GM TOPICAL ×3 (06:38→20:14)
[2019-09-05] MEDS: Acetaminophen 650 MG/20 ML UDC 1000 MG GT ×3 (06:39→20:16)
[2019-09-05] MEDS: Capsaicin 0.025% 1 APPLIC Tube TOPICAL ×3 (06:39→20:14)
[2019-09-05] MEDS: Jevity 1.5. 1,000 ML Bottle 240 ML GT ×5 (06:47→20:15)
[2019-09-05 07:55] VITALS: BP 131/78; PULSE 87; RESP 20; TEMP 36.7; O2SAT 93
[2019-09-05] MEDS: Flecainide 100 MG Tablet GT ×2 (09:11→20:16)
[2019-09-05] MEDS: amLODIPine 10 MG Tablet PO (09:11)
[2019-09-05] MEDS: Carvedilol 12.5 MG Tablet GT ×2 (09:12→20:15)
[2019-09-05] MEDS: DULoxetine Hcl 60 MG Capsule PO (09:12)
[2019-09-05] MEDS: Loperamide 2 MG Capsule PO (09:12)
[2019-09-05] MEDS: Losartan Potassium 100 MG Tablet GT (09:12)
[2019-09-05] MEDS: Famotidine 20 MG Tablet GT (09:12)
[2019-09-05] MEDS: APIXABAN 5 MG TABLET GT ×2 (09:12→20:15)
[2019-09-05] MEDS: Menthol/Lanolin/Calamine/Znox 113 GM Tube 1 APPLIC TOPICAL ×2 (09:27→20:15)
--- NOTE | 2019-09-05 09:56 | SP.MBSS_ITS ---
PRIMARY / SECONDARY DIAGNOSIS: Dysphagia/CVA REFERRING PHYSICIAN: Dr. Jones CURRENT DIET: NPO w/ PEG, [place] Free Water Protocol DENTITION: natural dentition w/ restorative work completed MENTAL STATUS: WFL for participation in MBS RESPIRATORY STATUS: oxygenating on room air PREVIOUS MODIFIED BARIUM SWALLOW STUDY: * MBS completed on 06/04/2019 at [facility]; revealed aspiration of thin, nectar, honey and pudding; recommended NPO w/ thin liquids trials under WOOD FLOORING SPECIALIST supervision only to assess readiness for a repeat MBS despite these findings, the patient was admitted to [facility] on 06/06/2019 on a pureed/honey thickened liquid diet w/ poor tolerance appreciated. * MBS completed 06/11/2019 at [facility]; revealed moderate to severe oropharyngeal dysphagia (R13.12) w/ inconsistent performance across trials w/ large volume silent aspiration of honey thickened liquids; recommended NPO w/ consideration for alternative means of nutrition/hydration REASON FOR REFERRAL: Reassessment of swallow function under fluoroscopy recommended d/t receipt of 12 weeks of dysphagia intervention w/ improved tolerance of therapeutic PO trials. Repeat MBS necessary prior to advancement given significance of silent aspiration identified during prior MBS 06/11/2019. MEDICAL HISTORY: Pt is a 79 YOF admitted to [facility] on 06/06/2019 following 05/23/2019 acute cerebrovascular accident involving the right middle cerebral artery. Pt.?s PMHx is significant for prior cerebrovascular accident (2010), migraines, hypertension, type II diabetes mellitus, status post pacemaker placement, arthritis, depression, and anxiety. STUDY FINDINGS: Patient participated in a Modified Barium Swallow (MBS) study on 09/05/2018. Dr. Gage was the radiologist present for this evaluation. This study was recorded in the lateral view and images were sent to PACs for storage. The following consistencies were presented to this patient for analysis of oropharyngeal swallow function: thin liquid, nectar thickened liquid, honey thickened liquid, pudding and ? of a barium coated Loulou Doone Shortbread Cookie. Results of the MBS are as follows: PENETRATION / ASPIRATION SCALE (ROSEN): 1 = does not enter airway 2 = enters airway/above vocal folds/ejected 3 = enters airway/above vocal folds/not ejected 4 = enters airway/contacts vocal folds/ejected 5 = enters airway/contacts vocal folds/not ejected 6 = enters airway/below vocal folds/ejected 7 = enters airway/below vocal folds/not ejected despite effort 8 = enters airway/below vocal folds/no effort PENETRATION / ASPIRATION SCALE (SCORE): 1. Honey thickened liquid via teaspoon: 5 * Delayed swallow onset w/ spillage penetrating into the laryngeal vestibule d/t delayed arytenoid to epiglottic petiole contact w/ delayed epiglottic inversion; contrast reached the vocal folds w/out ejection; cued cough and re- swallow was effective to clear a majority of penetrated contrast w/ only a trace faint line of contrast visible 2. Honey thickened liquid via teaspoon w/ chin tuck: 1 * Patient moved partially out of fluoroscopy view w/ chin tuck posture, no penetration evident before moving out of view nor evident upon return to view w/ the laryngeal vestibule remaining clear of contrast, although penetration/aspiration cannot be ruled out 3. Honey thickened liquid via teaspoon w/ chin tuck: 1 * Swallow onset was initiated w/ bolus at the posterior laryngeal surface of the epiglottis, complete laryngeal vestibule closure/airway protection achieved w/ chin tuck posture; mild oral residue post deglutition required a second swallow to clear; trace lining of pyriform sinuses 4. Pudding w/ chin tuck: 2 * Incomplete chin tuck posture w/ spillage of pudding undercoating the posterior laryngeal surface of the epiglottis during deglutition w/ complete ejection 5. Pudding w/ chin tuck: 1 * Improved chin tuck execution; swallow onset elicited while bolus was contained w/in the valleculae, effectively preventing penetration; moderate oral residue post deglutition requiring an additional swallow to clear; mild vallecular residue retention w/ a pocket of contrast retained along the aryepiglottic folds 6. Pudding w/ chin tuck and double swallow: 1 * Mild oropharyngeal residue (oral cavity, tongue base, valleculae) requiring double swallow to effective clear; pocket of contrast continues to remain along the aryepiglottic folds post deglutition 7. Cookie ? Loulou Doone Shortbread cookie coated in barium puddin * Slowed and mildly disorganized bolus prep and transfer; oral residue recollected w/ required second swallow to clear; pocket of contrast continues to remain along the aryepiglottic folds post deglutition 8. Leith thickened liquid via teaspoon w/ chin tuck: 1 * Oropharyngeal residue (mild oral and lining aryepiglottic folds) requiring second swallow to clear 9. Leith thickened liquid via teaspoon w/ chin tuck: 2 * Contrast undercoated the epiglottis during deglutition w/ complete ejection from the laryngeal vestibule 10. Leith thickened liquid via cup w/ chin tuck: 3 * Scant penetration w/ trace retention; aryepiglottic fold residue retention post deglutition that does not clear w/ multiple swallows, trialed right and left head turn w/ swallows to clear residue retained w/in the pharynx; right head turn partially effective w/ partial clearance 11. Leith thickened liquid via cup w/ chin tuck: 2 * View partially obstructed by patient?s shoulder and forward lean w/ execution of chin tuck 12. Leith thickened liquid via cup w/ chin tuck: 4 * Reduced control w/ spillage to the pyriforms before swallow onset w/ contrast from the pyriforms penetrating into the laryngeal vestibule; View partially obstructed by patient?s shoulder and forward lean w/ execution of chin tuck 13. Leith thickened liquid via cup w/ chin tuck: 4 * Delayed initiation w/ incomplete chin tuck resulting in penetration during deglutition 14. Leith thickened liquid via cup w/ chin tuck: 2 15. Thin liquid via cup w/ chin tuck: 3 * Spillage to pyriforms w/ penetration during the swallow and additional penetration of contrast lining the epiglottis and anterior wall of the laryngeal vestibule post deglutition w/out ejection * Aspiration not evident under fluoroscopy although coughing noted immediately post deglutition w/ suspicion that penetration of residue after the inital swallow contacted the vocal folds while fluoro was not running 16. Thin liquid via teaspoon w/ chin tuck: 3 * Spillage to pyriforms w/ penetration during the swallow; Patient did not execute chin tuck posture despite instruction IMPRESSION ORAL PHASE CHARACTERIZED BY: * LABIAL SEAL: interlabial escape, no progression to anterior lip * TONGUE CONTROL DURING BOLUS MANIPULATION: posterior escape of less than half of bolus * BOLUS PREPARATION / MASTICATION: disorganized chewing/mashing with solid pieces of bolus unchewed * BOLUS TRANSPORT / LINGUAL MOTION: slowed/repetitive tongue motion * ORAL RESIDUE: residue collection on oral structures PHARYNGEAL PHASE CHARACTERIZED BY: * INITIATION OF PHARYNGEAL SWALLOW: bolus head in pyriforms at first hyoid excursion; improved w/ chin tuck posture and w/ increased bolus viscosity * SOFT PALATE ELEVATION: no bolus between soft palate and pharyngeal wall * LARYNGEAL ELEVATION: partial superior movement of thyroid cartilage/partial approximation of arytenoids cartilage to epiglottic petiole * ANTERIOR HYOID EXCURSION: partial anterior movement * EPIGLOTTIC MOVEMENT: partial epiglottic inversion * LARYNGEAL VESTIBULE CLOSURE AT HEIGHT OF SWALLOW: incomplete laryngeal vestibule closure with narrow column of air/contrast in laryngeal vestibule; improved w/ chin tuck posture * PHARYNGEAL STRIPPING WAVE: pharyngeal stripping wave present / diminished * PHARYNGOESOPHAGEAL SEGMENT OPENING: complete distension and complete duration with no obstruction of flow * TONGUE BASE RETRACTION: narrow column of contrast between tongue base and posterior pharyngeal wall * PHARYNGEAL RESIDUE: collection of residue within or on pharyngeal structures (tongue base, aryepiglottic folds) ESOPHAGEAL PHASE CHARACTERIZED BY: * ESOPHAGEAL BOLUS CLEARANCE IN THE UPRIGHT POSITION: complete clearance; esophageal coating; visible cricipharyngeal hypertrophy evident at the C5-6 level, much more visible/prominent w/ use of chin tuck posture; did not impede bolus flow EFFECTS OF TREATMENT STRATEGIES ATTEMPTED: * Chin tuck posture = effective * Right head turn = partially effective to clear aryepiglottic fold residue post deglutition * Effort swallow = effective * Double swallow = effective * Reduced bolus size = effective * Liquid presentation by teaspoon = effective * Reduced rate of intake = effective INTERPRETATION OF RESULTS This patient presents with moderate oropharyngeal dysphagia (R13.12) resultant of 05/23/2019 cerebrovascular accident involving the right middle cerebral artery. The oral phase is marked by a mild mastication inefficiency w/ slowed and repetitive lingual motion utilized for A-P bolus transfer. Oral residue retention noted post deglutition, requiring use of an1-2 additional swallows to sufficiently clear the oral cavity. Additional swallows were independently executed by the patient as needed and without verbal prompting. The pharyngeal phase is marked by delayed pharyngeal swallow onset timing resulting in suboptimal bolus location upon swallow onset. Reduced airway closure achieved during deglutition d/t incomplete hyolaryngeal excursion coupled w/ premature pharyngeal bolus entry/delayed swallow onset, resulting in laryngeal vestibule penetration. Use of a chin tuck posture was effective to contain nectar, honey and pudding consistencies w/in the valleculae when consumed by teaspoon w/ complete laryngeal vestibule closure upon swallow onset. Despite use of chin tuck, thin liquid was not contained w/in the valleculae, but rather spilled to the pyriform sinuses w/ resultant laryngeal vestibule penetration during deglutition. Pharyngeal residue retention consistently evident along the aryepiglottic folds, although this residue did not result in penetration post deglutition. Use of a right head turn and an effortful swallow were both somewhat effective in reducing but not eliminating pharyngeal contrast retention. The esophageal phase is marked by visible cricopharyngeal hypertrophy evident at the C5-6 level, much more visible/prominent when a chin tuck posture was utilized. This finding was of no impact on swallow function and did not impede pharyngoesophageal bolus flow. Prominent cervical osteophyte located at the C-5 C-6 level, no effect on pharyngoesophageal motility. The patient was noted to cough in response to penetration that reached the contacted the vocal folds during this study. Occasional throat clearing was noted throughout remainder of the study, despite lack of identified penetration contacting vocal folds or aspiration under fluoroscopy. RECOMMENDATIONS * DIET RECOMMENDATIONS: pureed textures/nectar thickened liquids * COMPENSATORY STRATEGIES RECOMMENDED: Direct 1:1 supervision w/ first meal to commence under direct WOOD FLOORING SPECIALIST supervision 09/06/2018 d/t known distractibility and impulsivity; verbal cues required to ensure consistent use of strategies; small bites; small sips by teaspoon only; chin tuck; effortful swallow; additional swallows as needed to clear oral/pharyngeal residue (patient spontaneously executes) although requires prompting to maintain chin tuck posture during additional swallows; slow rate of intake; seated upright at 90 degrees during PO intake, remain upright for 30-60 minutes post meal (GERD precaution); continue medications via PEG pending WOOD FLOORING SPECIALIST assessment and recommendation for advancing to oral medications. * NEED FOR SKILLED SPEECH-LANGUAGE INTERVENTION TARGETING DYSPHAGIA: This patient requires intensive skilled speech-language intervention targeting assessment of diet tolerance and consistent use of compensatory swallowing strategies during meals; trials of mechanical soft textures/nectar thickened liquids by cup/thin liquid trials to be completed under direct WOOD FLOORING SPECIALIST supervision only w/ advancement as tolerated. Anticipate the ability to advance diet w/out further studies under fluoroscopy, although additional imaging should be considered of pulmonary status changes are evident following advancement in the absence of overt s/s penetration/aspiration. Continued oropharyngeal strengthening is recommended targeting improved swallow onset timing, laryngeal vestibule closure and pharyngeal contraction. Continued participating in the [place] Free Water Protocol is recommended until the patient is able to resume thin liquid intake. * ADDITIONAL COMMENTS/RECOMMENDATIONS: Results and recommendations were discussed with the Patient immediately following MBS completion, although further education and reinforcement of recommendations will likely be required. IMAGE COUNT: [id number]
--- NOTE | 2019-09-05 11:08 | PCM.PROGNOTE ---
Subjective: Afebrile Vital signs stable, blood pressure well controlled Maintaining an oxygen saturation of 93 to 95% on room air. All lab from today was personally reviewed. White blood cell count and platelets are within normal limits. Hemoglobin is 11.4 and stable. BMP is remarkable for an elevated BUN at 26 with a creatinine of 0.88. LFTs are within normal limits. Calcium phosphorus and magnesium are all normal. Blood sugar record was reviewed. Blood sugars are in good control. ET/OT/ST notes reviewed. Discussed with nursing-no acute problems to address. I reviewed the dietitian's reassessment and she feels the calories are appropriate since the patient was underweight at admission. No complaints....still asking me how her is doing but, easily diverted away from this topic by asking her how she is doing Did well on the MBS and she is scheduled to have a supervised meal tomorrow. - Physical Exam Vitals/I&O's: Vital Signs Temp Pulse Resp BP Pulse Ox 98.0 F 87 20 H 131/78 H 93 09/05/19 07:55 09/05/19 07:55 09/05/19 07:55 09/05/19 07:55 09/05/19 07:55 Oxygen Delivery Method Room Air Weight: 149 lb 3 oz Body Mass Index (BMI) 23.8 Finger Stick Blood Glucose 143 Orthostatic Vital Signs Start: 07/29/19 14:47 Freq: Status: Active Protocol: Activity Type Activity Date Activity User E-Sign Co-Sign Detail Recorded Client Recorded Date Recorded By Document 08/15/19 10:28 [id number] 08/15/19 10:29 08/15/19 10:28 Orthostatic Vitals Standing -Blood Pressure (90/60-120/80 mm Hg) 123/69 H -Extremity Use Right Arm -Pulse Rate (60-100 beats/min) 72 Sitting -Blood Pressure (90/60-120/80 mm Hg) 131/81 H -Extremity Use Right Arm -Pulse Rate (60-100 beats/min) 69 Lying -Blood Pressure (90/60-120/80 mm Hg) 129/73 H -Extremity Use Right Arm -Pulse Rate (60-100 beats/min) 64 Intake and Output for Last 24 Hours 09/03/19 09/04/19 09/05/19 23:59 23:59 23:59 Intake Total 1560 / 1560 1610 / 1610 Output Total 600 / 600 900 / 900 325 / 325 Balance 960 / 960 710 / 710 -325 / -325 General: Alert, Oriented x3, Cooperative, No apparent distress, Well developed, Well nourished HEENT: Atraumatic, PERRLA, EOMI, Normocephalic Oral: No Gingival or Mucosal Lesions/ Ulcerations, Dry Mucosa Neck: Supple, No JVD, No Nodes, No Nuchal Rigidity, Trachea Midline Lungs: Clear to auscultation, Normal air movement Cardiovascular: Regular rate, Regular Rhythm, Normal S1, Normal S2, No rub noted, No Gallop Abdomen: Bowel Sounds Present, Soft, Non Tender, Non-Distended, - - PEG site is without erythema or purulent discharge Extremities: No clubbing, No cyanosis, No edema, - - The fingers on the left hand are swollen but she has it in a sling and is not moving it which likely contributes to venous stasis Skin: No rashes, No breakdown Neurological: Cranial nerves II-XII grossly intact - facial droop is decreasing on the left, Motor Exam 5/5 strength throughout - 5/5 RUE and RLE, 4/5 LLE and 1/5 LUE, Facial Droop - on the left - improving Psych/Mental Status: Normal Affect, Appropriate, Hallucinations - asking about her but, this is less than in the past and the scary hallucinations where she sees bugs on the celing are resolved. Laboratory Results 09/05/19 05:40: WBC 5.3, RBC 3.83 L, Hgb 11.4 L, Hct 35.5 L, MCV 92.7, MCH 29.8, MCHC 32.1, RDW Std Deviation 56.3 H, RDW Coeff of Keyur 16.5 H, Plt Count 269, MPV 10.7 09/05/19 05:40: Sodium 141, Potassium 4.0, Chloride 105, Carbon Dioxide 30.0, Anion Gap 6, BUN 26 H, Creatinine 0.88, Estim Creat Clear Calc 51.24, Est GFR (MDRD) Af Amer 80, Est GFR (MDRD) Non-Af 66, BUN/Creatinine Ratio 29.6 H, Glucose 92, Calcium 9.2, Phosphorus 3.8, Magnesium 2.1, Total Bilirubin 0.40, AST 31, ALT 41, Alkaline Phosphatase 85, Total Protein 6.5, Albumin 3.2, Globulin 3.3, Albumin/Globulin Ratio 1.0 Current Medications Acetaminophen (Tylenol Liquid) 1,000 mg GT TID [facility] Last Admin: 09/05/19 06:39 Dose: 1,000 mg Documented by: Amlodipine Besylate (Norvasc) 10 mg PO DAILY [facility] Last Admin: 09/05/19 09:11 Dose: 10 mg Documented by: Apixaban (Eliquis) 5 mg GT BID [facility] Last Admin: 09/05/19 09:12 Dose: 5 mg Documented by: Atorvastatin Calcium (Lipitor) 40 mg GT QHS [facility] Last Admin: 09/04/19 20:24 Dose: 40 mg Documented by: Bisacodyl (Dulcolax) 10 mg RECTAL .PRN X 1 PRN PRN Reason: Constipation Calamine/Phenol (Calmoseptine Ointment) 1 applic TOPICAL BID [facility]; Protocol Last Admin: 09/05/19 09:27 Dose: 1 applicatio Documented by: Capsaicin (Zostrix) 1 applic TOPICAL TID [facility]; Protocol Last Admin: 09/05/19 06:39 Dose: 1 applicatio Documented by: Carvedilol (Coreg) 12.5 mg GT BID [facility] Last Admin: 09/05/19 09:12 Dose: 12.5 mg Documented by: Duloxetine HCl (Cymbalta) 60 mg PO DAILY [facility] Last Admin: 09/05/19 09:12 Dose: 60 mg Documented by: Enteral Nutritional Formula (Jevity 1.5) 240 ml GT 5X/DAY [facility] Last Admin: 09/05/19 09:12 Dose: 240 ml Documented by: Famotidine (Pepcid) 20 mg GT DAILY [facility] Last Admin: 09/05/19 09:12 Dose: 20 mg Documented by: Flecainide Acetate (Tambocor) 100 mg GT BID [facility] Last Admin: 09/05/19 09:11 Dose: 100 mg Documented by: Lactobacillus Acidophilus (Acidophilus) 1 tablet GT BID [facility] Last Admin: 09/05/19 09:11 Dose: 1 tablet Documented by: Latanoprost (Xalatan Opthalmic) 1 drop EACH EYE DAILY@2200 [facility] Last Admin: 09/04/19 20:24 Dose: 1 drop Documented by: Lidocaine/Prilocaine (Emla Cream W/Tegaderm) 1 gm TOPICAL TID [facility]; Protocol Last Admin: 09/05/19 06:38 Dose: 1 applicatio Documented by: Loperamide HCl (Imodium) 2 mg PO Q4H PRN PRN PRN Reason: DIARRHEA/LOOSE STOOLS Last Admin: 09/05/19 09:12 Dose: 2 mg Documented by: Losartan Potassium (Cozaar) 100 mg GT DAILY [facility] Last Admin: 09/05/19 09:12 Dose: 100 mg Documented by: Magnesium Hydroxide (Milk Of Magnesia) 30 ml PO .PRN X 1 PRN PRN Reason: Constipation Last Admin: 07/08/19 17:32 Dose: 30 ml Documented by: Multi-Ingredient Cream (Eucerin) 1 applic TOPICAL TID PRN PRN; Protocol PRN Reason: Dry Skin Potassium Chloride (Potassium Chl Soln) 20 meq GT BID [facility] Last Admin: 09/05/19 09:12 Dose: 20 meq Documented by: Quetiapine Fumarate (Seroquel) 50 mg GT DAILY@1999 [facility] Last Admin: 09/04/19 20:22 Dose: 50 mg Documented by: Sodium Chloride () 5 - 15 ml IV UD PRN PRN Reason: SALINE FLUSH Last Admin: 06/19/19 06:13 Dose: 10 ml Documented by: Medical Necessity - Tobacco Use Smoking Status: Never smoker Tobacco Use: Non-smoker Assessment/Plan All Active Problems (Last Reviewed 07/09/19 @ 07:57 by Kathi Shields) CVA (cerebral vascular accident) (Acute 05/2019) Impressions 1. 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 Patient is status thrombectomy on 05/23/[address] [facility] [address] Doll. She continues to improve with therapy 2. AF - on Flecanide and Coreg....and is in NSR 3. chronic anticoagulation with Eliquis 4. Last ECHO at [facility] with an estimated PA systolic of 60 but, recent TAMERA at [facility] states the PA pressure was 40-45. this is consistent with mild Pulmonary HTN. the EF was 65-70% 5. Dysphagia due to CVA 6. DM II - blood sugars are controlled. HGBA1C is 6.4%. BS this AM was 164 which is higher than it has been.....will check BS BID for the next few days and if none > 180 will DC accuchecks again. 7. HLD - on atorvastatin 40 mg daily. The last LDL recorded was 116 which is too high. Will need to repeat a liver panel and lipid panel 8. [id number]. ? whether she needs HCTZ? The BUN/CREAT ratio is quite high. Will check orthostatic VS's and if she is orthostatic will DC the HCTZ. In addition to hydrochlorothiazide she is also receiving losartan, amlodipine and Coreg for blood pressure control. 9. CAD 10. S/P PM 11. Anxiety/depression - continue the CYmbalta 12. Visual hallucinations - continue the Seroquel.......seem to be improving with the increase in the Seroquel and so does her ability to focus but, the hallucinations are not completely gone......tolerating the increase in the Seroquel to 50 mg with no adverse effects. 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 S/P PEG 06/13/2019. 14. mild - moderate Pulmonary HTN - etiology? 15. Hx of iron deficiency anemia - has seen hematology in the past. HGB has been stable 16. OA with Left shoulder pain - injected by ortho but the pain recurred in a few days......started on EMLA cream and Zostrix and the pain improved significantly but, is still present. discussed with OT and pt has a sling but she is not using it. Will try a different type sling that will restrict movement of the L shoulder/arm when she is not doing therapy. Will also increase the Zostrix to TID....this has worked well and the pain is minimal and not all the time now 17. Hypokalemia - resolved 18. Metabolic alkalosis-more likely than not secondary to hydrochlorothiazide and hypokalemia. resolved with the aforementioned measures continue current meds Plan on DC to [facility] on Monday Code Visit Inpatient E&M: [id number] Subs Hosp L2
[2019-09-05 11:58] VITALS: BMI 23.8
--- NOTE | 2019-09-05 14:04 | CASEMGMT ---
Social Work Spoke with patient's dtr SAGE Whitehead, to discuss DC plans. Dtr agrees pt to DC to [facility]. Spoke with [facility] whom agree pt is accepted with 30 day private pay check at time of admission. Agreeable to DC 09/09. Dtr agreeable as well and family can transport pt. IDT aware of DC. Faxed updated clincials as pt passed MBS on this date and is upgraded to a diet and Aleah Srinivasan to submit for precert. 7000 in HENS completed. Plan: DC to [facility] 09/09. NBA Weaver LICENSED MASSAGE THERAPIST
--- NOTE | 2019-09-05 17:06 | NURSING ---
Patient complained of burning with urination, incontinence, and increase in hallucinations with paranoia. Patient reporting to staff there are men that entered her room and used her bathroom and that they are peeking into her room. She is also seeing her family members and despite much 1:1 she is getting agitated with staff. Dr. Josue notified and new order for UA C&S.
[2019-09-05 17:16] LABS: Bedside Glucose 133 mg/dL (70-110)
[2019-09-05 17:40] LABS: Bacteria 0 SEEN /hpf (None Seen); Mucous, Urine 0 SEEN /hpf (<or=2+); Red Blood Cells-Urine 0 SEEN /hpf (0-5)
[2019-09-05 17:43] LABS: Color, Urine Yellow (Yellow); Glucose, Dipstick Normal (Normal); Ketone-Dipstick Negative (Negative); Leukocyte Esterase-Dipstick 500 /ul (Negative); Nitrite-Dipstick Negative (Negative); Occult Blood-Urine 10 /ul (Negative); Protein-Dipstick Negative (Negative); Specific Gravity, Urine 1.005 (1.002-1.030); Urine Bilirubin Dipstick Negative (Negative); Urine Clarity Clear (Clear); Urine Urobilinogen Normal (Normal)
[2019-09-05 17:51] LABS: Squamous Epithelial Cells - UA 0-5 SEEN /hpf (5-10); White Blood Cells 10-25 SEEN /hpf (0-5)
[2019-09-05] MEDS: Ceftriaxone 1 GM Vial IM (19:18)
[2019-09-05 20:11] VITALS: BP 141/91; PULSE 64; RESP 16; TEMP 36.9; O2SAT 98
[2019-09-05] MEDS: Latanoprost 0.005% 1 Bottle 1 DRP EACH EYE (20:14)
[2019-09-05] MEDS: QUEtiapine 25 MG Tablet 50 MG GT (20:15)
[2019-09-05] MEDS: Atorvastatin Calcium 40 MG Tablet GT (20:16)
[2019-09-05 22:22] VITALS: BMI 23.8
[2019-09-06] MEDS: Acetaminophen 650 MG/20 ML UDC 1000 MG GT ×3 (06:10→20:41)
[2019-09-06] MEDS: Jevity 1.5. 1,000 ML Bottle 240 ML GT ×3 (06:16→14:38)
[2019-09-06] MEDS: Capsaicin 0.025% 1 APPLIC Tube TOPICAL ×3 (06:16→20:41)
[2019-09-06] MEDS: Lidocaine/Prilocaine HCl 5 GM Tube 1 GM TOPICAL ×3 (06:16→20:40)
[2019-09-06 06:25] LABS: Bedside Glucose 97 mg/dL (70-110)
[2019-09-06 07:20] VITALS: BP 121/74; PULSE 72; RESP 16; TEMP 36.6; O2SAT 95
[2019-09-06] MEDS: Famotidine 20 MG Tablet GT (07:52)
[2019-09-06] MEDS: Losartan Potassium 100 MG Tablet GT (07:52)
[2019-09-06] MEDS: Loperamide 2 MG Capsule PO (07:52)
[2019-09-06] MEDS: DULoxetine Hcl 60 MG Capsule PO (07:52)
[2019-09-06] MEDS: APIXABAN 5 MG TABLET GT ×2 (07:52→20:40)
[2019-09-06] MEDS: Flecainide 100 MG Tablet GT ×2 (07:52→20:41)
[2019-09-06] MEDS: Carvedilol 12.5 MG Tablet GT ×2 (07:52→20:39)
[2019-09-06] MEDS: amLODIPine 10 MG Tablet PO (07:52)
[2019-09-06] MEDS: Menthol/Lanolin/Calamine/Znox 113 GM Tube 1 APPLIC TOPICAL ×2 (10:13→20:42)
--- NOTE | 2019-09-06 10:23 | PCM.PN.BLA ---
Progress Note Day # 2 antibiotics Afebile VSS Maintaining appropriate oxygen saturation on RA Oral intake is 0 however she was approved for a diet after the modified barium swallow yesterday and is to have a supervised meal with the speech therapist today. Discussed with nursing - she was incontinent of urine yesterday and more confused and having increased hallucinations, scary ones. A UA was sent and showed 10-25 WBC's and no RBC's. There was no bacteria. Culture is pending and she was given 1 dose of Rocephin IM on 09/05/2019 Reviewed the PT/OT/ST notes. Medication list reviewed. More sleepy today. Lungs - CTA Heart RRR, no gallop Abd - soft, NT, ND, BS's heard in all quadrants, no suprapubic tenderness No peripheral edema No change in the neuro exam other than increased confusion Impressions 1. cystitis with acute toxic encephalopathy due to infection - Start Augmentin susp 500 mg BID and await the results of the urine culture Start Augmentin suspension 500 mg BID for 5 days. Await the results of the urine culture to make changes to the antibiotic STROKE Vital Signs/Narrative: Vital Signs Temp Pulse Resp BP Pulse Ox 09/06/19 07:20 97.9 F 72 16 121/74 H 95 Code Visit Inpatient E&M: 24433 Subs Hosp L2
[2019-09-06 12:07] VITALS: BMI 23.8
--- NOTE | 2019-09-06 12:13 | PCM.TXEXTCAR ---
- Diet 06/14/19 11:22 Diet: Nothing Per Oral Type of Dietary Supplement:: Glucerna Arturoke Is pt able to select menu?: No Diet Comments: [place] Water Protocol w/ice chips & direct supervision; freq oral care - Routine Orders/Code Status Enema Type: Fleetz Enema Frequency: Daily PRN Suppository Type: Dulcolax 10mg Suppository Frequency: Daily PRN Code Status: DNRCC-A - Wound(s) left ankle scab Wound Type: Abrasion right hogan Wound Type: skin tear left buttocks Wound Type: Pressure Injury LLQ Wound Type: Surgical Incision L chest Wound Type: scabbing L eye Wound Type: scabbing L side of nose Wound Type: scabbing coccyx Wound Type: shearing - Therapies Weight Bearing: Full weight bearing Extremity Affected:: left upper and lower Physical Therapy: Eval and Treat Occupational Therapy: Eval and Treat Speech Therapy: Eval and Treat - Problem/Diagnosis (1) CVA (cerebral vascular accident) Status: Acute Comment: 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 Current Visit: No (7) Secondary pulmonary arterial hypertension Status: Chronic Current Visit: No (8) Sick sinus syndrome Status: Chronic Current Visit: No (9) Cystitis Status: Acute Current Visit: Yes (10) Dysphagia Status: Chronic Comment: due to R MCA ischemic CVA Current Visit: Yes (11) Physical debility Status: Acute Comment: due to R MCA ischemic CVA Current Visit: Yes (12) Chronic anticoagulation Status: Chronic Comment: on Apixaban Current Visit: Yes (13) CAD (coronary artery disease) Status: Chronic Current Visit: Yes (14) Anxiety with depression Status: Chronic Current Visit: Yes (15) Visual hallucinations Status: Chronic Comment: much better with Seroquel Current Visit: Yes (16) PEG (percutaneous endoscopic gastrostomy) status Status: Chronic Comment: inserted 06/13/[address] Khan Current Visit: Yes (17) Type 2 diabetes mellitus Status: Chronic Current Visit: Yes - Allergies/Procedures Done in Hospital Allergies/Adverse Reactions: Allergies amlodipine Adverse Reaction (Mild, Verified 07/11/19 15:14) Itching mild itching (Dr Joselo stock) Procedures: Peg tube placement - Type of Care/Length of Stay Estimated LOS: More Than 30 Days Type of Care Needed: Skilled Rehab Potential: Good Prognosis: Good - Additional Orders/Day of Discharge Additional Orders: She has cystitis. The urine culture results are not back at the time this document was prepared. Please call for the results of the urine culture on Monday when she is discharged. H&P will serve as current which was dated: 06/07/19 Day of Discharge: 09/09/19 - Dietary and Speech Recommendations Dietitian Recommendations/Changes: Continue current TF regimen of Jevity 1.5 Vladimir via PEG- 240 mL bolus 5x/day with increased flushes of 90mL H2O flush before and after each feeding (180mL total) to provide 1800 calories, 76 g protein, and 1812 mL total fluid per day. Continue daily weights. Pt to remain NPO with Terrazas water protocol/ice chips in place; TF meets~100% estimated nutrition needs. - Follow Up Care Primary Care Physician: Nafisa Chawla DO [Primary Care Provider] - Please follow up with your Primary Care Physician in: 2 weeks after transfer to [facility] Please Follow Up With: Tae Brown MD When: 1 month after discharge to [facility]
--- NOTE | 2019-09-06 12:34 | PCM.DC.SUM ---
Discharge Date and Diagnosis - Problem List Patient Problems: Active and Suspected Problems (Last Updated 09/05/19 @ 15:13 by Christel Mayo) Cystitis (Acute) Physical debility (Acute) due to R MCA ischemic CVA Date of Admission: 06/13/19 Date of Discharge: 09/09/19 - Primary Discharge Diagnosis Active and Suspected Problems (Last Updated 09/05/19 @ 15:13 by Christel Mayo) Physical debility (Acute) due to R MCA ischemic CVA Cystitis (Acute) Visual hallucinations - Secondary Discharge Diagnosis Chronic Problems (Last Updated 09/05/19 @ 15:13 by Christel Mayo) Dysphagia (Chronic) due to R MCA ischemic CVA Chronic anticoagulation (Chronic) on Apixaban CAD (coronary artery disease) (Chronic) Anxiety with depression (Chronic) Visual hallucinations (Chronic) much better with Seroquel PEG (percutaneous endoscopic gastrostomy) status (Chronic) inserted 06/13/[address] Khan Type 2 diabetes mellitus (Chronic) - well controlled Sick sinus syndrome (Chronic) PAF (paroxysmal atrial fibrillation) (Chronic) Presence of permanent cardiac pacemaker (Chronic 07/13/15) 07/13/15, [facility] Secondary pulmonary arterial hypertension (Chronic) Essential (primary) hypertension (Chronic) Hyperlipidemia (Chronic) Hospital Course and Treatment Imaging Results: Clinical Impression(s) from Imaging Studies Brain CT 06/10/19 09:59 IMPRESSION: Further evolution of the subacute right middle cerebral artery infarct. No acute hemorrhage. Electronically Signed: Joel Michael MD at 10:30 EDT Tel , Service support , Videofluoroscopic Swallow 06/11/19 00:00 IMPRESSION: Penetration and aspiration was noted with thin barium through barium and pudding. The swallow study findings were discussed with the patient by the speech pathologist at the conclusion of the examination. Please see speech pathology report for more information and recommendations. The procedure was performed by the speech therapist under the direct supervision of Dr. Curry. Electronically Signed: Vasyl Curry at 15:00 EDT Tel , Service support , Chest X-Ray 06/14/19 23:45 IMPRESSION: Mild new linear left lower lobe pulmonary opacities, mild infiltrates and subsegmental atelectasis possible aspiration Mild cardiomegaly unchanged Cardiac pacemaker Minimal contrast in colon from prior swallowing study Electronically Signed: Rogelio Finley at 0:24 EDT Tel , Service support , Abdomen X-Ray 06/15/19 00:39 IMPRESSION: No acute abdominal abnormality is radiographically apparent. at 0201 Reported and signed by: Mandie Taylor MD Electronically Signed: Mandie Taylor MD at 2:01 EDT Tel , Service support , Brain CT 06/22/19 08:00 IMPRESSION: Expected evolution of right MCA territory infarction. No midline shift or hemorrhagic transformation. Electronically Signed: Trung Thayer MD (Brooks) at 12:46 EDT , Service support , Shoulder X-Ray 07/08/19 12:30 IMPRESSION: Acromioclavicular arthrosis. Electronically Signed: Kit Garcia MD at 12:58 EST Tel , Service support , Videofluoroscopic Swallow 09/05/19 00:00 IMPRESSION: Vestibular penetration and landen aspiration with patient in neutral position. No similar findings during chin tuck. Fluoroscopy services provided for clinical procedure. Please refer to speech therapist''s procedure note for additional detail. Electronically Signed: Joe Lang MD at 12:37 EST , Service support , Laboratory Results - last 24 hr 09/05/19 09/05/19 09/06/19 16:57 17:28 05:45 Urine Color Yellow Urine Clarity Clear Urine pH 7.0 Ur Specific [place] 1.005 Urine Protein Negative Urine Glucose (UA) Normal Urine Ketones Negative Urine Occult Blood 10 H Urine Nitrite Negative Urine Bilirubin Negative Urine Urobilinogen Normal Ur Leukocyte Esterase 500 H Urine RBC 0 SEEN Urine WBC 10-25 SEEN Ur Squamous Epith Cells 0-5 SEEN Urine Bacteria 0 SEEN Urine Mucus 0 SEEN POC Glucose 133 H 97 none Operations: None Procedures: - - Modified Barium Swallow Summary of Care Provided: The patient is a 79 year old F with a past medical history of Pulmonary hypertension, hyperlipidemia, coronary artery disease, chronic anticoagulation with Xarelto, diabetes mellitus type 2, atrial fibrillation, sick sinus syndrome, pacemaker implantation and anxiety/depression who suffered an ischemic CVA in the R MCA territory on 05/23/19. she was seen in the ED at [facility] and a stroke alert was called. CTA of the head and neck showed a R MCA thrombus, No TPA was recommended and the pt was transferred to [facility] where she had a R MCA thrombectomy on 05/23/[address] Doll. Xarelto was stopped due to the size of the infarct. A repeat non-contrasted CT brain was done on 06/04/19 and it showed decreased edema with resolution of a previously noted mass-effect of the right lateral ventricle and resolution of the previous midline shift. There were scattered hemorrhages within the infarct which were previously seen with no new areas of hemorrhage. TAMERA showed an ejection fraction of 65 to 70% with a right ventricular systolic pressure estimated at 41-45 which is consistent with mild pulmonary hypertension. She was transferred to the inpt rehab unit on 06/06/19 for 3 hours of PT/OT/ST daily to return her to her previous level of function. Prior to the stroke she was living independently and independent with all ADLs, mobility and driving. At the time of admission she was having visual hallucinations which were scary to her. she had been on Seroquel and this was gradually increased to 50 mg Q HS. The upsetting hallucinations have resolved but, she continues to ask about her who has . She is very cooperative with therapy and very pleasant. She is appropriate. On 09/05/2019 she was once again having hallucinations that were upsetting and she was more confused. A UA was sent and had 10-25 WBC's per HPF and there was no bacteria. On that same day the WBC was 5.3 and she was Afebrile. She was treated with IM Rocephin on 09/05 and started on Augmentin suspension 500 mg BID on 09/06/2019. A urine culture was ordered and it grew pansensitive Proteus mirabilis. A modified barium swallow was done on 09/05/2019 and showed vestibular penetration and landen aspiration with the patient in a neutral position. There were no similar findings with chin tuck. She was started on a regular pur?ed diet with nectar thick liquids on 09/06/19. Her blood sugars have been well controlled. We are still giving all medications via the PEG but, ST can trial pills with her under supervision and then convert meds to PO when appropriate. She was discharged on 09/09/19 to [facility] for additional therapy with the hope that she may some day get back home with supervision. She is alert and oriented X 3. She still confabulates but, she is not hallucinating today. NAD lungs - CTA, symmetric chest expansion Heart RRR, no gallop abdomen - soft, NT, ND, BS's are normal, PEG site is clean without erythema or purulent DC no edema, no calf tenderness This note was generated with [employer] dictation software. It may contain incorrect words, spelling, and punctuation that were not noted in checking the note before signing. Patient Problems: Active and Suspected Problems (Last Updated 09/05/19 @ 15:13 by Christel Mayo) Cystitis (Acute) Physical debility (Acute) due to R MCA ischemic CVA - Physical Exam Vitals/I&O's: Vital Signs Temp Pulse Resp BP Pulse Ox 97.9 F 72 16 121/74 H 95 09/06/19 07:20 09/06/19 07:20 09/06/19 07:20 09/06/19 07:20 09/06/19 07:20 Oxygen Delivery Method Room Air Weight: 148 lb 2.41 oz Body Mass Index (BMI) 23.8 Finger Stick Blood Glucose 143 Orthostatic Vital Signs Start: 07/29/19 14:47 Freq: Status: Active Protocol: Activity Type Activity Date Activity User E-Sign Co-Sign Detail Recorded Client Recorded Date Recorded By Document 08/15/19 10:28 [id number] 08/15/19 10:29 AG 08/15/19 10:28 Orthostatic Vitals Standing -Blood Pressure (90/60-120/80 mm Hg) 123/69 H -Extremity Use Right Arm -Pulse Rate (60-100 beats/min) 72 Sitting -Blood Pressure (90/60-120/80 mm Hg) 131/81 H -Extremity Use Right Arm -Pulse Rate (60-100 beats/min) 69 Lying -Blood Pressure (90/60-120/80 mm Hg) 129/73 H -Extremity Use Right Arm -Pulse Rate (60-100 beats/min) 64 Intake and Output for Last 24 Hours 09/04/19 09/05/19 09/06/19 23:59 23:59 23:59 Intake Total 1610 / 1610 1760 / 1760 780 / 780 Output Total 900 / 900 1850 / 1850 450 / 450 Balance 710 / 710 -90 / -90 330 / 330 Laboratory Results 09/05/19 16:57: POC Glucose 133 H 09/05/19 17:28: Urine Color Yellow, Urine Clarity Clear, Urine pH 7.0, Ur Specific [place] 1.005, Urine Protein Negative, Urine Glucose (UA) Normal, Urine Ketones Negative, Urine Occult Blood 10 H, Urine Nitrite Negative, Urine Bilirubin Negative, Urine Urobilinogen Normal, Ur Leukocyte Esterase 500 H, Urine RBC 0 SEEN, Urine WBC 10-25 SEEN, Ur Squamous Epith Cells 0-5 SEEN, Urine Bacteria 0 SEEN, Urine Mucus 0 SEEN 09/06/19 05:45: POC Glucose 97 Current Medications Acetaminophen (Tylenol Liquid) 1,000 mg GT TID [facility] Last Admin: 09/06/19 06:10 Dose: 1,000 mg Documented by: Amlodipine Besylate (Norvasc) 10 mg PO DAILY [facility] Last Admin: 09/06/19 07:52 Dose: 10 mg Documented by: Amoxicillin/Clavulanate Potassium (Augmentin Suspension 250mg/5 Ml) 500 mg PO BIDCM [facility] Stop: 09/11/19 17:01 Apixaban (Eliquis) 5 mg GT BID [facility] Last Admin: 09/06/19 07:52 Dose: 5 mg Documented by: Atorvastatin Calcium (Lipitor) 40 mg GT QHS [facility] Last Admin: 09/05/19 20:16 Dose: 40 mg Documented by: Bisacodyl (Dulcolax) 10 mg RECTAL .PRN X 1 PRN PRN Reason: Constipation Calamine/Phenol (Calmoseptine Ointment) 1 applic TOPICAL BID [facility]; Protocol Last Admin: 09/06/19 10:13 Dose: 1 applicatio Documented by: Capsaicin (Zostrix) 1 applic TOPICAL TID [facility]; Protocol Last Admin: 09/06/19 06:16 Dose: 1 applicatio Documented by: Carvedilol (Coreg) 12.5 mg GT BID [facility] Last Admin: 09/06/19 07:52 Dose: 12.5 mg Documented by: Duloxetine HCl (Cymbalta) 60 mg PO DAILY [facility] Last Admin: 09/06/19 07:52 Dose: 60 mg Documented by: Enteral Nutritional Formula (Jevity 1.5) 240 ml GT 5X/DAY [facility] Last Admin: 09/06/19 10:13 Dose: 240 ml Documented by: Famotidine (Pepcid) 20 mg GT DAILY [facility] Last Admin: 09/06/19 07:52 Dose: 20 mg Documented by: Flecainide Acetate (Tambocor) 100 mg GT BID [facility] Last Admin: 09/06/19 07:52 Dose: 100 mg Documented by: Lactobacillus Acidophilus (Acidophilus) 1 tablet GT BID [facility] Last Admin: 09/06/19 07:52 Dose: 1 tablet Documented by: Latanoprost (Xalatan Opthalmic) 1 drop EACH EYE DAILY@2200 [facility] Last Admin: 09/05/19 20:14 Dose: 1 drop Documented by: Lidocaine/Prilocaine (Emla Cream W/Tegaderm) 1 gm TOPICAL TID [facility]; Protocol Last Admin: 09/06/19 06:16 Dose: 1 applicatio Documented by: Loperamide HCl (Imodium) 2 mg PO Q4H PRN PRN PRN Reason: DIARRHEA/LOOSE STOOLS Last Admin: 09/06/19 07:52 Dose: 2 mg Documented by: Losartan Potassium (Cozaar) 100 mg GT DAILY [facility] Last Admin: 09/06/19 07:52 Dose: 100 mg Documented by: Magnesium Hydroxide (Milk Of Magnesia) 30 ml PO .PRN X 1 PRN PRN Reason: Constipation Last Admin: 07/08/19 17:32 Dose: 30 ml Documented by: Multi-Ingredient Cream (Eucerin) 1 applic TOPICAL TID PRN PRN; Protocol PRN Reason: Dry Skin Potassium Chloride (Potassium Chl Soln) 20 meq GT BID [facility] Last Admin: 09/06/19 07:52 Dose: 20 meq Documented by: Quetiapine Fumarate (Seroquel) 50 mg GT DAILY@1999 [facility] Last Admin: 09/05/19 20:15 Dose: 50 mg Documented by: Sodium Chloride () 5 - 15 ml IV UD PRN PRN Reason: SALINE FLUSH Last Admin: 06/19/19 06:13 Dose: 10 ml Documented by: Home Medications: Medications to take at Discharge Valsartan [Diovan] 160 mg PO BID 10/19/15 Atorvastatin Calcium [Lipitor] 40 mg PO QHS 06/06/19 Carvedilol [Coreg] 6.25 mg PO Q8H 06/06/19 Duloxetine Hcl [Cymbalta] 60 mg PO DAILY 06/06/19 Flecainide [Tambocor] 100 mg PO BID 06/06/19 aspirin 81 mg chewable tablet 81 mg PO DAILY 07/08/19 Acetaminophen Liquid [Tylenol Liquid] 650 mg GT TID udc 09/06/19 Amlodipine [Norvasc] 10 mg PO DAILY tab 09/06/19 Amox/Clav 250mg/5ml Suspension [Augmentin Suspension 250mg/5 ml] 500 mg GT BIDCM #6 po.syringe 09/06/19 Apixaban [Eliquis] 5 mg GT BID tab 09/06/19 Bisacodyl [Dulcolax] 10 mg RECTAL .PRN X 1 PRN suppos. 09/06/19 Capsaicin [Zostrix] 56.6 gm TP TID PRN PRN #1 cream..g. 09/06/19 Famotidine [Pepcid] 20 mg GT DAILY tab 09/06/19 Flecainide [Tambocor] 100 mg GT BID tab 09/06/19 Jevity 1.5 240 ml GT 5X/DAY bottle 09/06/19 Lactobacillus Acidophilus [Acidophilus] 1 tab GT BID tab 09/06/19 Latanoprost 0.005% [Xalatan Opthalmic] 1 drp EACH EYE DAILY@2199 bottle 09/06/19 Lidocaine/Prilocaine HCl [Emla Cream W/Tegaderm] 1 gm TOPICAL TID PRN PRN tube 09/06/19 Loperamide [Imodium] 2 mg PO Q4H PRN PRN cap 09/06/19 Losartan Potassium [Cozaar] 100 mg GT DAILY tab 09/06/19 Magnesium Hydroxide [Milk Of Magnesia] 30 ml PO .PRN X 1 PRN udc 09/06/19 Menthol/Lanolin/Calamine/Znox [Calmoseptine Ointment] 1 applic TOPICAL BID tube 09/06/19 Mineral Oil/Petrolatum,White [Eucerin] 1 applic TOPICAL TID PRN PRN jar 09/06/19 Potassium Chl Soln 20 meq GT BID udc 09/06/19 Quetiapine Fumarate [Seroquel] 50 mg GT DAILY@1999 tab 09/06/19 Following Prescrptions Were Given to Patient: Capsaicin [Zostrix] 56.6 gm TP TID PRN PRN #1 cream..g. PRN Reason: R shoulder pain Primary Care Physician: Nafisa Chawla DO [Primary Care Provider] - Please follow up with your Primary Care Physician in: 2 weeks after transfer to [facility] Please Follow Up With: Tae Brown MD When: 1 month after discharge to [facility] Disposition: Senior Care facility - [facility] Minutes spent on discharge:: 45 Patient Condition:: Good Medical Necessity - Tobacco Use Smoking Status: Never smoker Tobacco Use: Non-smoker Meaningful Use Info Meaningful Use Diagnoses (Choose all that apply): Ischemic CVA - CVA Therapy Assessed for PT,OT and/or ST?: Yes - Ischemic Stroke Antithrombotic order at d/c?: Yes Dx of Atrial fib/flutter?: Yes Anticoagulant at discharge?: Yes Statins at discharge?: Yes Primary Dx Acute Ischemic CVA?: Yes IV tPA ordered during stay?: No Reason IV t-PA not ordered: Treatment not Indicated - pt had concluded her stroke and was admitted to acute in rehab facility Code Visit Inpatient E&M: 12084 Disch Hosp
[2019-09-06] MEDS: Amox/Clav 250mg/5ml Suspension 500 MG PO (17:23)
[2019-09-06 20:25] VITALS: BP 144/89; PULSE 76; RESP 16; TEMP 36.9; O2SAT 96
[2019-09-06] MEDS: QUEtiapine 25 MG Tablet 50 MG GT (20:39)
[2019-09-06] MEDS: Atorvastatin Calcium 40 MG Tablet GT (20:41)
[2019-09-06] MEDS: Latanoprost 0.005% 1 Bottle 1 DRP EACH EYE (20:41)
[2019-09-07 00:18] VITALS: BMI 23.8
--- NOTE | 2019-09-07 00:57 | NURSING ---
Reviewed and agree with DIRECTOR OF TEACHER EDUCATION documentation and charting.
[2019-09-07] MEDS: Lidocaine/Prilocaine HCl 5 GM Tube 1 GM TOPICAL ×3 (05:09→20:19)
[2019-09-07] MEDS: Capsaicin 0.025% 1 APPLIC Tube TOPICAL ×3 (05:10→20:37)
[2019-09-07] MEDS: Acetaminophen 650 MG/20 ML UDC 1000 MG GT ×3 (05:10→20:37)
[2019-09-07 07:40] VITALS: BP 134/67; PULSE 70; RESP 17; TEMP 36.8; O2SAT 97
[2019-09-07] MEDS: Amox/Clav 250mg/5ml Suspension 500 MG PO ×2 (09:02→16:44)
[2019-09-07] MEDS: DULoxetine Hcl 60 MG Capsule PO (09:14)
[2019-09-07] MEDS: Losartan Potassium 100 MG Tablet GT (09:14)
[2019-09-07] MEDS: amLODIPine 10 MG Tablet PO (09:14)
[2019-09-07] MEDS: Flecainide 100 MG Tablet GT ×2 (09:14→20:37)
[2019-09-07] MEDS: Famotidine 20 MG Tablet GT (09:14)
[2019-09-07] MEDS: APIXABAN 5 MG TABLET GT ×2 (09:14→20:36)
[2019-09-07] MEDS: Carvedilol 12.5 MG Tablet GT ×2 (09:15→20:36)
[2019-09-07] MEDS: Jevity 1.5. 1,000 ML Bottle 240 ML GT (09:15)
[2019-09-07] MEDS: Menthol/Lanolin/Calamine/Znox 113 GM Tube 1 APPLIC TOPICAL ×2 (09:15→20:35)
--- NOTE | 2019-09-07 11:19 | PCM.PN.BLA ---
Progress Note Afebile VSS Maintaining appropriate oxygen saturation on RA Oral intake is 604 09/06/2019. She had a supervised meal with speech therapy on 09/06/2019 and performed adequately but is impulsive and has to be cued to slow her rate and tuck her chin. Her diet was upgraded to pur?ed foods with nectar thick liquids. Discussed with nursing - no problems that need addressed Reviewed the PT/OT/ST notes Medication list reviewed. Microbiology cultures were reviewed and the patient has 50,000 80,000 colonies of Proteus mirabilis in her urine. It is pansensitive so will continue Augmentin suspension. She still has a little burning with urination. Denies nausea and also denies flank pain and suprapubic pain. She is alert and oriented X 3. She still confabulates but, she is not hallucinating today. NAD lungs - CTA Heart RRR abdomen - soft, NT, ND, BS's are normal, PEG site is clean without erythema or purulent DC no edema Impressions 1. cystitis due to Proteus Mirabilis - Continue the Augmentin for a total of 7 days 2. acute delirium due to infection/cystitis - resolved Plan DC to [facility] on Monday for continued PT/OT/ST STROKE Vital Signs/Narrative: Vital Signs Temp Pulse Resp BP Pulse Ox 09/07/19 07:40 98.3 F 70 17 134/67 H 97 Code Visit Inpatient E&M: 21814 Subs Hosp L2
[2019-09-07 12:54] VITALS: BMI 23.8
[2019-09-07 17:15] LABS: Bedside Glucose 139 mg/dL (70-110)
[2019-09-07] MEDS: Latanoprost 0.005% 1 Bottle 1 DRP EACH EYE (20:21)
[2019-09-07] MEDS: QUEtiapine 25 MG Tablet 50 MG GT (20:22)
[2019-09-07] MEDS: Atorvastatin Calcium 40 MG Tablet GT (20:37)
[2019-09-07 21:45] VITALS: BP 156/89; PULSE 68; RESP 16; TEMP 36.2; O2SAT 94
[2019-09-08 01:23] VITALS: BMI 23.8
[2019-09-08] MEDS: Lidocaine/Prilocaine HCl 5 GM Tube 1 GM TOPICAL ×3 (05:25→20:45)
[2019-09-08] MEDS: Capsaicin 0.025% 1 APPLIC Tube TOPICAL ×3 (05:26→21:26)
[2019-09-08] MEDS: Acetaminophen 650 MG/20 ML UDC 1000 MG GT ×3 (05:31→21:12)
[2019-09-08 06:50] LABS: Bedside Glucose 107 mg/dL (70-110)
[2019-09-08 07:42] VITALS: BP 138/78; PULSE 67; RESP 18; TEMP 36.3; O2SAT 95
[2019-09-08] MEDS: Amox/Clav 250mg/5ml Suspension 500 MG PO ×2 (08:05→16:09)
[2019-09-08] MEDS: Flecainide 100 MG Tablet GT ×2 (08:06→21:12)
[2019-09-08] MEDS: Famotidine 20 MG Tablet GT (08:07)
[2019-09-08] MEDS: DULoxetine Hcl 60 MG Capsule PO (08:07)
[2019-09-08] MEDS: Losartan Potassium 100 MG Tablet GT (08:07)
[2019-09-08] MEDS: Carvedilol 12.5 MG Tablet GT ×2 (08:07→21:12)
[2019-09-08] MEDS: amLODIPine 10 MG Tablet PO (08:07)
[2019-09-08] MEDS: APIXABAN 5 MG TABLET GT ×2 (08:08→21:13)
[2019-09-08] MEDS: Menthol/Lanolin/Calamine/Znox 113 GM Tube 1 APPLIC TOPICAL ×2 (08:08→21:25)
[2019-09-08 10:30] VITALS: BMI 23.8
[2019-09-08 19:59] VITALS: BP 136/80; PULSE 75; RESP 16; TEMP 36.7; O2SAT 95
[2019-09-08] MEDS: Atorvastatin Calcium 40 MG Tablet GT (21:12)
[2019-09-08] MEDS: QUEtiapine 25 MG Tablet 50 MG GT (21:12)
[2019-09-08] MEDS: Latanoprost 0.005% 1 Bottle 1 DRP EACH EYE (21:14)
[2019-09-09 03:23] VITALS: BMI 23.8
[2019-09-09] MEDS: Acetaminophen 650 MG/20 ML UDC 1000 MG GT (05:44)
[2019-09-09] MEDS: Lidocaine/Prilocaine HCl 5 GM Tube 1 GM TOPICAL (05:44)
[2019-09-09] MEDS: Capsaicin 0.025% 1 APPLIC Tube TOPICAL (05:44)
[2019-09-09 07:11] VITALS: BP 160/80; PULSE 66; RESP 18; TEMP 36.6; O2SAT 97
[2019-09-09] MEDS: Amox/Clav 250mg/5ml Suspension 500 MG PO (08:08)
[2019-09-09] MEDS: APIXABAN 5 MG TABLET GT (08:08)
[2019-09-09] MEDS: Loperamide 2 MG Capsule PO (08:08)
[2019-09-09] MEDS: DULoxetine Hcl 60 MG Capsule PO (08:08)
[2019-09-09] MEDS: Flecainide 100 MG Tablet GT (08:08)
[2019-09-09] MEDS: Losartan Potassium 100 MG Tablet GT (08:09)
[2019-09-09] MEDS: Carvedilol 12.5 MG Tablet GT (08:09)
[2019-09-09] MEDS: amLODIPine 10 MG Tablet PO (08:09)
[2019-09-09] MEDS: Menthol/Lanolin/Calamine/Znox 113 GM Tube 1 APPLIC TOPICAL (08:10)
[2019-09-09] MEDS: Famotidine 20 MG Tablet GT (08:41)
[2019-09-09 09:48] VITALS: BMI 23.8
--- NOTE | 2019-09-09 13:15 | NURSING ---
Discharge to skilled facility with x2 family members taking in car.
== END 2019-09-09 13:15 | disposition skilled nursing facility (03) | DRG 56 ==
PROVIDERS: Hospitalist; Internal Medicine; Nurse Practitioner Family; Psychiatry & Neurology Neurology; Surgery; Admitting Provider Psychiatry & Neurology Neurology; Family Provider Internal Medicine; PCP Internal Medicine; Referring Provider Psychiatry & Neurology Neurology; Visit Provider Student in an Organized Health Care Education/Training Program
PROC: 0DJ08ZZ Inspection of Upper Intestinal Tract, Via Natural or Artificial Opening Endoscopic (ICD-10-PCS; CPT 43235; principal; 2019-06-13 11:55)
DX: I69.354 Hemiplegia and hemiparesis following cerebral infarction affecting left non-dominant side (principal); J69.0 Pneumonitis due to inhalation of food and vomit; G92 Toxic encephalopathy; I48.20 Chronic atrial fibrillation, unspecified; I50.32 Chronic diastolic (congestive) heart failure; B37.0 Candidal stomatitis; N30.00 Acute cystitis without hematuria; I69.391 Dysphagia following cerebral infarction; I69.392 Facial weakness following cerebral infarction; I69.322 Dysarthria following cerebral infarction; I69.398 Other sequelae of cerebral infarction; I69.320 Aphasia following cerebral infarction; I25.10 Atherosclerotic heart disease of native coronary artery without angina pectoris; I48.0 Paroxysmal atrial fibrillation; E78.5 Hyperlipidemia, unspecified; I27.21 Secondary pulmonary arterial hypertension; I11.0 Hypertensive heart disease with heart failure; E11.9 Type 2 diabetes mellitus without complications; F41.8 Other specified anxiety disorders; E87.6 Hypokalemia; H53.47 Heteronymous bilateral field defects; R44.1 Visual hallucinations; R13.12 Dysphagia, oropharyngeal phase; K21.9 Gastro-esophageal reflux disease without esophagitis; Z87.891 Personal history of nicotine dependence; Z95.0 Presence of cardiac pacemaker; M19.012 Primary osteoarthritis, left shoulder; B96.4 Proteus (mirabilis) (morganii) as the cause of diseases classified elsewhere
CPT/HCPCS: 36415; 70450; 71046; 73030; 74019; 74230; 80048; 80053; 80061; 81001; 82962; 83036; 83605; 83735; 84100; 84132; 85025; 85027; 85610; 85730; 87040; 87077; 87086; 87088; 87186; 87633; 87641; 92507; 92523; 92526; 92610; 92611; 93005; 97110; 97112; 97116; 97140; 97162; 97166; 97530; 97533; 97535; 97542; 97802; 97803; J7030; A4216; J2405

== ENCOUNTER 2019-10-28 20:35 | Emergency (ER) | payer MEDICARE, SELFPAY ==
[2019-10-28 20:37] VITALS: BP 156/80; PULSE 63; RESP 18; TEMP 37.1; O2SAT 94; BMI 26.8
--- NOTE | 2019-10-28 21:29 | CT_ITS ---
STUDY: CT BRAIN WITHOUT CONTRAST REASON FOR EXAM: Female, 79 years old. HIT HEAD WHILE PAINTING/ON XARELTO RADIATION DOSAGE (If Supplied By Facility): CTDIvol = ( 44.99 ) mGy, DLP = ( 745.49 ) mGycm TECHNIQUE: Transaxial CT imaging of the brain was performed without administration of intravenous contrast material. Individualized dose optimization techniques were used for this CT. COMPARISON: No relevant priors. FINDINGS: Normal soft tissue structures. Normal calvarium. Mild atrophy and moderate periventricular white matter ischemic changes.. Severe encephalomalacia in the right temporal frontal and parietal lobes with porencephalic dilatation of the right lateral ventricle consistent with an old infarct with involvement of the right basal ganglia. Normal brainstem. Normal cerebellum. There is hematoma in the scalp overlying the left parietal bone without associated skull fracture. There are no findings of an acute ischemic infarction. There are postsurgical changes of the orbits. There is minor mucosal thickening of the right maxillary sinus CT/Brain/Head without Contrast IMPRESSION: Old infarct in the right cerebral hemisphere. Hemorrhage in the soft tissues overlying left parietal bone without acute skull fracture or intracranial bleed. Electronically Signed: Yonathan Biswas MD at 22:29 EST , Service support ,
--- NOTE | 2019-10-28 21:30 | ED.DCSUM_ITS ---
- ER Visit Summary Date of Service: 10/28/19 Chief Complaint: Head injury with scalp laceration History of Present Illness: The patient is a 79 F prior stroke and history of A. fib on Xarelto. Patient is also diabetic. She is lying in bed tonight at home recently she had a new family picture it was above the bed and fell struck her in the posterior left scalp causing laceration. No LOC no other injuries. Physical Examination: Older female no acute distress. Vital signs are stable afebrile. H EENT exam there is a lot of blood in the posterior aspect of her scalp and hair that about to be cleaned off to actually get a good look at the laceration of her scalp. Pupils are unreactive light. No facial trauma. Neck nontender. Lungs clear to auscultation bilaterally. Heart regular rhythm rate about 60. Chest wall nontender. Abdomen soft nontender. Pelvic girdle intact. She is flaccid in the left arm and weak in the left leg gets from her prior stroke. She has normal strength and range of motion to the right upper and lower extremity. Neurologically she is awake and alert. With the weakness on the left side. Test Results: CAT scan of her brain shows no acute intracranial bleed. No skull fracture. There is extracranial blood from the scalp laceration. This is read by the radiologist and reviewed by me. Emergency Department Course and Treatment: Procedure note: Scalp laceration with ER repair. Area locally anesthetized with lidocaine with epinephrine. Nurses cleaned the wound. Washed with saline. Cleaned with Shur-Clens. Explored. Closed using #5 4-0 Ethilon sutures. Placed simple interrupted sutures. Patient tolerated procedure well. I did explore the wound prior to closure and there was no step-off or bony abnormality. The wound itself really was not that deep. There are no foreign bodies. Treatment Plan: Suture removal in 10 days. Head injury instructions. Keep the wound clean. Disposition: discharge Impression: Acute left scalp laceration with ER repair of 4 cm Anticoagulated on Eliquis Head injury This note was generated with [employer] dictation software. It may contain incorrect words, spelling, and punctuation that were not noted in review of the chart prior to signing ED Disposition - Plan for ED Patient: Referrals: Denton,Nafisa, DO [Primary Care Provider] -
--- NOTE | 2019-10-28 23:15 | ED.DEP ---
ED Disposition - Plan for ED Patient: Disposition: Home or Assisted Living Instructions: HEAD INJURY, No Wake-Up (Adult), LACERATION, Scalp Referrals: Denton,Nafisa, DO [Primary Care Provider] - 10 Day for suture removal Additional Instructions: Ice to the scalp as needed. Tylenol for pain. Keep wound clean. Suture removal in 10 days. Head injury instructions if she has severe headache, intractable vomiting or not acting herself she needs to be reevaluated. The CAT scan tonight shows no skull fracture or bleeding in the brain.
--- NOTE | 2019-10-28 23:45 | ED.RN ---
NURSE TO NURSE REPORT CALLED TO CARIE AT [facility]
== END 2019-10-29 00:30 | disposition skilled nursing facility (03) ==
PROVIDERS: Emergency Provider Emergency Medicine; PCP Internal Medicine
DX: S01.01XA Laceration without foreign body of scalp, initial encounter (principal); E11.9 Type 2 diabetes mellitus without complications; I48.91 Unspecified atrial fibrillation; I63.9 Cerebral infarction, unspecified; I69.354 Hemiplegia and hemiparesis following cerebral infarction affecting left non-dominant side; I69.344 Monoplegia of lower limb following cerebral infarction affecting left non-dominant side; I10 Essential (primary) hypertension; Z79.899 Other long term (current) drug therapy; Z79.02 Long term (current) use of antithrombotics/antiplatelets; W26.8XXA Contact with other sharp object(s), not elsewhere classified, initial encounter; Y93.89 Activity, other specified; Y92.003 Bedroom of unspecified non-institutional (private) residence as the place of occurrence of the external cause; Y99.8 Other external cause status
CPT/HCPCS: 12002; 70450; 99285

== ENCOUNTER 2021-05-18 09:02 | Inpatient (IN) | payer MEDICARE, SELFPAY ==
[2021-05-18 09:04] VITALS: BP 119/70; PULSE 70; RESP 18; TEMP 36.5; O2SAT 95; BMI 26.9
--- NOTE | 2021-05-18 09:25 | EKG12_ITS ---
Test Reason : FALL Blood Pressure : / mmHG Vent. Rate : 060 BPM Atrial Rate : 063 BPM P-R Int : 222 ms QRS Dur : 096 ms QT Int : 450 ms P-R-T Axes : 000 041 118 degrees QTc Int : 450 ms Atrial-paced rhythm with prolonged AV conduction Low voltage QRS ST & T wave abnormality, consider lateral ischemia Abnormal ECG Confirmed by SUE FERGUSON, KYLEIGH ([id number]), greeting card editor CHAU JOSHI ([id number]) on 05/19/2021 1:20:29 PM Referred By: EMY Confirmed By:KYLEIGH ROGERS MD
--- NOTE | 2021-05-18 09:27 | RAD_ITS ---
STUDY: X-RAY - PELVIS AND LEFT HIP REASON FOR EXAM: Female, 81 years old. Injury/Pain TECHNIQUE: 3 views of the pelvis and left hip. COMPARISON: None. FINDINGS: There is an intratrochanteric fracture of the left proximal femur. The remainder of the visualized osseous structures are intact. There is no dislocation. RAD/HIP, UNI W/ Pelvis 2-3 Views IMPRESSION: Intertrochanteric fracture of the left proximal femur. Electronically Signed: Félix Wills MD at 10:52 EDT Tel , Service support ,
[2021-05-18 09:54] LABS: Absolute Lymphocyte Count 1.22 X10^3/uL (0.83-4.51); Absolute Neutrophil Count 3.6 X10^3/uL (2.0-7.7); Basophil# 0.01 X10^3/uL; Basophil% 0.2 % (0-1); Eosinophil# 0.02 X10^3/uL; Eosinophils% 0.3 % (0-5); Hematocrit 34.1 % (37-47); Hemoglobin 10.9 g/dL (12.0-15.0); Lymphocyte # 1.22 X10^3/ul (0.83-4.51); Mean Corpuscular Volume 90.7 fL (81-99); Mean Platelet Vol. 10.7 fl (6.2-12.0); Monocyte% 17.2 % (0-10); NRBC Flagged by Analyzer 0 % (0-5); Neutrophil # 3.55 X10^3/uL (2.7-7.7); Platelet Count 258 K/mm3 (150-450); RBC Distribution Width SD 46.8 fl (35.1-43.9); Red Blood Count 3.76 M/mm3 (4.2-5.4); White Blood Count 5.8 K/mm3 (4.4-11.0)
[2021-05-18 10:04] LABS: ALB/GLOB Ratio 0.7 RATIO (0.9-2.4); AST(SGOT) 24 U/L (15-37); Alanine Aminotransfer ALT/SGPT 22 U/L (13-56); Albumin, Serum 3.1 g/dL (3.2-5.0); Alkaline Phosphatase 108 U/L (45-117); Anion Gap 9 (5-15); BUN 25 mg/dL (7-18); BUN/Creat Ratio 17.9 RATIO (10-20); Calcium,Total 9.4 mg/dL (8.5-10.1); Chloride 104 mmol/L (98-107); EST Glomerular Filtration Rate 38 mL/min (>60); Est Glom Filt Rate - Afr Amer 47 mL/min (>60); Estimated Creatinine Clearance 28.84 ml/min; Globulin 4.3 g/dL (2.2-4.2); Glucose 147 mg/dL (74-106); Potassium 4.9 mmol/L (3.5-5.1); Protein, Total 7.4 g/dL (6.4-8.2); Sodium Level 138 mmol/L (136-145)
[2021-05-18] MEDS: Morphine 4 MG/ML Syringe IV ×2 (10:08→13:24)
--- NOTE | 2021-05-18 10:20 | RAD_ITS ---
STUDY: X-RAY CHEST REASON FOR EXAM: Female, 81 years old. Cough TECHNIQUE: Frontal view of the chest COMPARISON: 06/14/19 FINDINGS: The lungs are clear. There are no pleural effusions. There is no pneumothorax. The heart is normal in size. Again noted is a pacemaker. The visualized osseous structures are within normal limits. RAD/Chest 1 View (Portable) IMPRESSION: No acute thoracic pathology. Electronically Signed: Félix Wills MD at 10:50 EDT Tel , Service support ,
--- NOTE | 2021-05-18 11:20 | ED.VIS.LOWEX ---
HPI History of Present Illness HPI Narrative: Patient presents after a fall that occurred yesterday. Patient states she was sitting on a bedside commode when it collapsed and she fell onto her left side. Patient states her pain is worse in her left hip. Patient states her pain is worse with any movement. Patient denies any head injury or loss of consciousness. Patient denies any syncope. Patient denies any paresthesias or weakness. Patient denies any other injuries. Chief Complaint: Lower Extremity Injury Informant: patient Occured/Mechanism Mechanism/Context: Yes fall Onset/Context/Timing Onset: Yesterday Context: Sudden Onset Timing: Continuous Quality of Pain: Sharp Location: Left hip Current Severity: Severe Maximum Severity: Severe Worsened by: Movement Relieved by: Nothing Associated Symptoms Associated Symptoms: Negative for Parasthesia and Weakness PFSH [facility] Medical History Abnormal thyroid function test Acute on chronic diastolic (congestive) heart failure Anxiety Anxiety with depression AV junctional bradycardia CVA (cerebral vascular accident) (05/2019) Cystitis Depression Diastolic dysfunction Dysphagia Essential (primary) hypertension Hyperlipidemia Iron deficiency anemia Lumbar disc herniation with radiculopathy Non-rheumatic tricuspid valve insufficiency Nonobstructive atherosclerosis of coronary artery PAF (paroxysmal atrial fibrillation) Physical debility Presence of permanent cardiac pacemaker (07/13/15) Secondary pulmonary arterial hypertension Sick sinus syndrome Stool incontinence Stroke/cerebrovascular accident Syncope and collapse Type 2 diabetes mellitus Visual hallucinations Home Medications atorvastatin 40 mg PO QHS 06/06/19 [History Last Taken Unknown] duloxetine 60 mg PO DAILY 06/06/19 [History Last Taken Unknown] acetaminophen 650 mg G-TUBE TID udc 09/06/19 [Rx Last Taken Unknown] amlodipine 10 mg PO DAILY tab 09/06/19 [Rx Last Taken Unknown] bisacodyl 10 mg RECTAL .PRN X 1 PRN suppos. 09/06/19 [Rx Last Taken Unknown] capsaicin 56.6 g TP TID PRN PRN #1 cream..g. 09/06/19 [Rx Last Taken Unknown] latanoprost 1 drp EACH EYE DAILY@2200 bottle 09/06/19 [Rx Last Taken Unknown] lidocaine-prilocaine 1 g TOPICAL TID PRN PRN tube 09/06/19 [Rx Last Taken Unknown] magnesium hydroxide 30 ml PO .PRN X 1 PRN udc 09/06/19 [Rx Last Taken Unknown] flecainide 100 mg PO BID 10/28/19 [History Last Taken Unknown] losartan 100 mg PO DAILY 10/28/19 [History Last Taken Unknown] potassium chloride 10 meq PO BID 10/28/19 [History Last Taken Unknown] carvedilol 12.5 mg tablet 12.5 mg PO BID 04/21/20 [History Last Taken Unknown] pantoprazole 40 mg tablet,delayed release 40 mg PO DAILY 04/21/20 [History Last Taken Unknown] quetiapine 50 mg tablet 50 mg PO QHS 04/21/20 [History Last Taken Unknown] apixaban 5 mg tablet 2.5 mg PO BID tab 04/26/21 [History Last Taken Unknown] cyanocobalamin (vitamin B-12) 500 mcg tablet 500 mcg PO DAILY 04/26/21 [History Last Taken Unknown] metformin 500 mg tablet 1,000 mg PO BID tab 04/26/21 [History Last Taken Unknown] risperidone 0.5 mg tablet 0.25 mg PO DAILY tab 04/26/21 [History Last Taken Unknown] sennosides 8.6 mg tablet 8.6 mg PO DAILY 04/26/21 [History Last Taken Unknown] sodium chloride 0.65 % nasal spray aerosol 1 spray INTRANASAL ONCE 04/26/21 [History Last Taken Unknown] Allergy/AdvReac Type Severity Reaction Status Date / Time amlodipine AdvReac Mild Itching Verified 05/18/21 09:08 Family History Sister Diabetes Hypertension Father , age 60 of [place] Heart disease Hypertension Myocardial infarction Mother , age 91 of cancer Cancer Surgical History History of hysterectomy History of knee surgery History of left heart catheterization (01/2010) History of lumbar discectomy PEG (percutaneous endoscopic gastrostomy) status Social History Smoking Status: Never smoker alcohol intake: current alcohol intake frequency: holidays/special occasions only Alcohol type: wine substance use type: does not use caffeine: No ROS ROS ED Constitutional Constitutional ED: Denies chills or fever(s) Eyes Eyes: Denies blurry vision or change in vision ENT ENT ED: Reports rhinorrhea; Denies sore throat Cardiovascular Cardiovascular: Denies chest pain or palpitations Respiratory/Chest Respiratory/Chest: Denies cough or dyspnea Gastrointestinal Gastrointestinal: Denies nausea or vomiting Genitourinary Genitourinary ED: Denies dysuria or hematuria Musculoskeletal Musculoskeletal: Denies back pain or neck pain Integumentary Denies abscess or rash Neurologic Neurologic: Denies headache(s) or weakness Allergic/Immunologic Allergic/Immunologic ED: Denies mouth swelling or urticaria EXAM Physical Exam Const Vital Signs: 05/18/21 09:04 05/18/21 12:23 Temperature 97.7 F L Temperature Source Temporal Pulse Rate 70 Respiratory Rate 18 Blood Pressure 119/70 129/97 H Blood Pressure Mean 86 107 Pulse Ox 95 93 Oxygen Delivery Method Room Air Room Air Positive well nourished and well developed General Appearance ED: well developed HEENT Reports moist mucous membranes Neck full ROM, supple and no JVD Resp normal respiratory effort and clear to auscultation bilaterally Cardio regular rate and no murmurs Rhythm: abnormal rhythm irregularly irregular GI normal to inspection, nondistended, normoactive bowel sounds and non-tender Palpation: soft Extremity Extremity Narrative: The left lower extremity is shortened and externally rotated. There is pain with internal and external rotation. There is no edema or ecchymosis. Pedal pulses are equal bilaterally. Sensation was intact to light touch in all digits. General Extremety ED: Negative for tenderness Neuro oriented x3, CN's II-XII intact bilaterally and no sensory deficits noted Sensorium / Orientation: alert Motor Exam: strength 5/5 throughout Psych mental status grossly normal Skin no rashes or lesions noted MDM MDM MDM Narrative Medical decision making narrative: Patient was given a dose of morphine here. X-rays of the left hip were obtained. There are 3 views. On my interpretation, there is an intertrochanteric fracture with minimal displacement of the distal fragment anteriorly approximately 25%. There is no angulation. Radiologist also interpreted the x-ray and agrees. Portable 1 view chest x-ray was obtained. On my interpretation, lung waggoner are clear. There is normal cardiac silhouette. Bony thorax is normal. There is no acute process noted. Radiologist also interpreted the x-ray and agrees. CBC and comprehensive metabolic profile were obtained and were essentially within normal limits. Creatinine was slightly elevated at 1.40. BUN was 25. These are slightly increased from previous results. PT with INR and PTT were ordered and are pending. Urinalysis was ordered and is pending. Amos catheter was placed. Case was discussed with Dr. Maagllon from orthopedics. Lab Data Attestation: I reviewed the patient's lab results. Labs: Laboratory Results - last 24 hr 05/18/21 05/18/21 05/18/21 09:35 09:35 11:28 WBC 5.8 RBC 3.76 L Hgb 10.9 L Hct 34.1 L MCV 90.7 MCH 29.0 MCHC 32.0 RDW Std Deviation 46.8 H RDW Coeff of Keyur 14.0 Plt Count 258 MPV 10.7 Immature Gran % (Auto) 0.300 Neut % (Auto) 61.0 Lymph % (Auto) 21.0 [place] % (Auto) 17.2 H Eos % (Auto) 0.3 Baso % (Auto) 0.2 Absolute Neuts (auto) 3.6 Absolute Lymphs (auto) 1.22 Nucleated RBC % 0 Sodium 138 Potassium 4.9 Chloride 104 Carbon Dioxide 25.0 Anion Gap 9 BUN 25 H Creatinine 1.40 H Estim Creat Clear Calc 28.84 Est GFR (MDRD) Af Amer 47 L Est GFR (MDRD) Non-Af 38 L BUN/Creatinine Ratio 17.9 Glucose 147 H Calcium 9.4 Total Bilirubin 0.40 AST 24 ALT 22 Alkaline Phosphatase 108 Total Protein 7.4 Albumin 3.1 L Globulin 4.3 H Albumin/Globulin Ratio 0.7 L Urine Color Yellow Urine Clarity Clear Urine pH 5.0 Ur Specific [place] 1.025 Urine Protein 30 H Urine Glucose (UA) Normal Urine Ketones 5 H Urine Occult Blood Negative Urine Nitrite Negative Urine Bilirubin Negative Urine Urobilinogen Normal Ur Leukocyte Esterase 25 H Urine RBC 0 SEEN Urine WBC 0 SEEN Ur Squamous Epith Cells 0-5 SEEN Urine Bacteria 0 SEEN Urine Mucus 0 SEEN Radiography X-Ray: Left Hip, Read by ED Physician, Read by Radiologist and Fracture (Intertrochanteric fracture left hip) Diagnostic Testing: Radiology Impression Hip/Pelvis X-Ray 05/18/21 09:27 IMPRESSION: Intertrochanteric fracture of the left proximal femur. Electronically Signed: Félix Wills MD at 10:52 EDT Tel , Service support , Chest X-Ray 05/18/21 10:20 IMPRESSION: No acute thoracic pathology. Electronically Signed: Félix Wills MD at 10:50 EDT Tel , Service support , EKG Initial EKG: Attestation: I personally reviewed and interpreted this EKG as follows: Interpretation: Atrial Fibrillation (60) and Non-Specific ST Changes Prior EKG tracings: available for review Prior: Unchanged (06/09/2019) Treatment and Re-Evaluation Vital Sign Attestation:: Vital signs were reviewed prior to admission. They are stable. Discharge Plan Dx/Rx/DC Orders Clinical Impression: Closed intertrochanteric fracture of left hip, Acute kidney injury Disposition Disposition: Acute Care [facility]
[2021-05-18 11:34] LABS: Bacteria 0 SEEN /hpf (None Seen); Mucous, Urine 0 SEEN /hpf (<or=2+); Red Blood Cells-Urine 0 SEEN /hpf (0-5); White Blood Cells 0 SEEN /hpf (0-5)
[2021-05-18 11:37] LABS: Color, Urine Yellow (Yellow); Glucose, Dipstick Normal (Normal); Ketone-Dipstick 5 mg/dl (Negative); Leukocyte Esterase-Dipstick 25 /ul (Negative); Nitrite-Dipstick Negative (Negative); Occult Blood-Urine Negative /ul (Negative); Protein-Dipstick 30 mg/dl (Negative); Specific Gravity, Urine 1.025 (1.002-1.030); Urine Bilirubin Dipstick Negative (Negative); Urine Clarity Clear (Clear); Urine Urobilinogen Normal (Normal)
[2021-05-18 11:42] LABS: Squamous Epithelial Cells - UA 0-5 SEEN /hpf (5-10)
[2021-05-18 12:23] VITALS: BP 129/97; O2SAT 93
--- NOTE | 2021-05-18 13:01 | HP.PCM.HOS_ITS ---
HPI - General HPI Narrative LEOPOLDO PONCE, is a 81 F who presents with a fall. Patient was on the commode yesterday and fell landing on her hip. Patient is nonambulatory at baseline due to history of stroke which left her with a left-sided hemiparesis. She stated that she did hit her head but had no loss of consciousness. Patient is nonambulatory at baseline has [facility] at a detention for the past year since her stroke. Patient is essentially wheelchair-bound but does pivot to transfer. Patient is adamant about getting surgery she would not want to remain on bedrest. [facility] Medical History Abnormal thyroid function test Acute on chronic diastolic (congestive) heart failure Anxiety Anxiety with depression AV junctional bradycardia CVA (cerebral vascular accident) (05/2019) Cystitis Depression Diastolic dysfunction Dysphagia Essential (primary) hypertension Hyperlipidemia Iron deficiency anemia Lumbar disc herniation with radiculopathy Non-rheumatic tricuspid valve insufficiency Nonobstructive atherosclerosis of coronary artery PAF (paroxysmal atrial fibrillation) Physical debility Presence of permanent cardiac pacemaker (07/13/15) Secondary pulmonary arterial hypertension Sick sinus syndrome Stool incontinence Stroke/cerebrovascular accident Syncope and collapse Type 2 diabetes mellitus Visual hallucinations Home Medications atorvastatin 40 mg PO QHS 06/06/19 [History Last Taken Unknown] duloxetine 60 mg PO DAILY 06/06/19 [History Last Taken Unknown] acetaminophen 650 mg G-TUBE TID udc 09/06/19 [Rx Last Taken Unknown] amlodipine 10 mg PO DAILY tab 09/06/19 [Rx Last Taken Unknown] bisacodyl 10 mg RECTAL .PRN X 1 PRN suppos. 09/06/19 [Rx Last Taken Unknown] capsaicin 56.6 g TP TID PRN PRN #1 cream..g. 09/06/19 [Rx Last Taken Unknown] latanoprost 1 drp EACH EYE DAILY@2200 bottle 09/06/19 [Rx Last Taken Unknown] lidocaine-prilocaine 1 g TOPICAL TID PRN PRN tube 09/06/19 [Rx Last Taken Unknown] magnesium hydroxide 30 ml PO .PRN X 1 PRN udc 09/06/19 [Rx Last Taken Unknown] flecainide 100 mg PO BID 10/28/19 [History Last Taken Unknown] losartan 100 mg PO DAILY 10/28/19 [History Last Taken Unknown] potassium chloride 10 meq PO BID 10/28/19 [History Last Taken Unknown] carvedilol 12.5 mg tablet 12.5 mg PO BID 04/21/20 [History Last Taken Unknown] pantoprazole 40 mg tablet,delayed release 40 mg PO DAILY 04/21/20 [History Last Taken Unknown] quetiapine 50 mg tablet 50 mg PO QHS 04/21/20 [History Last Taken Unknown] apixaban 5 mg tablet 2.5 mg PO BID tab 04/26/21 [History Last Taken Unknown] cyanocobalamin (vitamin B-12) 500 mcg tablet 500 mcg PO DAILY 04/26/21 [History Last Taken Unknown] metformin 500 mg tablet 1,000 mg PO BID tab 04/26/21 [History Last Taken Unknown] risperidone 0.5 mg tablet 0.25 mg PO DAILY tab 04/26/21 [History Last Taken Unknown] sennosides 8.6 mg tablet 8.6 mg PO DAILY 04/26/21 [History Last Taken Unknown] sodium chloride 0.65 % nasal spray aerosol 1 spray INTRANASAL ONCE 04/26/21 [History Last Taken Unknown] Allergy/AdvReac Type Severity Reaction Status Date / Time amlodipine AdvReac Mild Itching Verified 05/18/21 09:08 Family History Sister Diabetes Hypertension Father , age 60 of [place] Heart disease Hypertension Myocardial infarction Mother , age 91 of cancer Cancer Surgical History History of hysterectomy History of knee surgery History of left heart catheterization (01/2010) History of lumbar discectomy PEG (percutaneous endoscopic gastrostomy) status Social History Smoking Status: Never smoker alcohol intake: current alcohol intake frequency: holidays/special occasions only Alcohol type: wine substance use type: does not use caffeine: No ROS ROS Narrative Left hip pain and back pain status post fall. Left-sided hemiparesis. All review of systems were negative except as mentioned above in the history of present illness and the other review of systems. Vital Signs Vital Signs Vital Signs: 05/18/21 09:04 05/18/21 12:23 Temperature 36.5 C L Temperature Source Temporal Pulse Rate 70 Respiratory Rate 18 Blood Pressure 119/70 129/97 H Blood Pressure Mean 86 107 Pulse Ox 95 93 Oxygen Delivery Method Room Air Room Air Weight Weight: 73.4 kg Body Mass Index (BMI) 26.9 Physical Exam Const alert Resp normal respiratory effort, no retractions, no use of accessory muscles and clear to auscultation bilaterally Cardio regular rate, regular rhythm, S1 normal heart sound and S2 normal heart sound GI normal to inspection, nondistended, normoactive bowel sounds, soft to palpation, non-tender and non-distended Extremity normal to inspection Skin no rashes or lesions noted and no wounds Neuro Sensorium / Orientation: awake and alert Psych affect normal Results Lab / Micro Data Attestation: I reviewed the patient's lab results. Result Diagrams: 05/18/21 09:35 05/18/21 09:35 Labs: Laboratory Results - last 24 hr 05/18/21 09:35: WBC 5.8, RBC 3.76 L, Hgb 10.9 L, Hct 34.1 L, MCV 90.7, MCH 29.0, MCHC 32.0, RDW Std Deviation 46.8 H, RDW Coeff of Keyur 14.0, Plt Count 258, MPV 10.7, Immature Gran % (Auto) 0.300, Neut % (Auto) 61.0, Lymph % (Auto) 21.0, [place] % (Auto) 17.2 H, Eos % (Auto) 0.3, Baso % (Auto) 0.2, Absolute Neuts (auto) 3.6, Absolute Lymphs (auto) 1.22, Nucleated RBC % 0 05/18/21 09:35: Sodium 138, Potassium 4.9, Chloride 104, Carbon Dioxide 25.0, Anion Gap 9, BUN 25 H, Creatinine 1.40 H, Estim Creat Clear Calc 28.84, Est GFR (MDRD) Af Amer 47 L, Est GFR (MDRD) Non-Af 38 L, BUN/Creatinine Ratio 17.9, Glucose 147 H, Calcium 9.4, Total Bilirubin 0.40, AST 24, ALT 22, Alkaline Phosphatase 108, Total Protein 7.4, Albumin 3.1 L, Globulin 4.3 H, Albumin/Globulin Ratio 0.7 L 05/18/21 11:28: Urine Color Yellow, Urine Clarity Clear, Urine pH 5.0, Ur Speci fic [place] 1.025, Urine Protein 30 H, Urine Glucose (UA) Normal, Urine Ketones 5 H, Urine Occult Blood Negative, Urine Nitrite Negative, Urine Bilirubin Negative, Urine Urobilinogen Normal, Ur Leukocyte Esterase 25 H, Urine RBC 0 SEEN, Urine WBC 0 SEEN, Ur Squamous Epith Cells 0-5 SEEN, Urine Bacteria 0 SEEN, Urine Mucus 0 SEEN Micro: Microbiology 05/18/21 10:03 Nasal Secretion SARS-CoV-2 Antigen (Rapid) - Final EKG Initial EKG: Attestation: I personally reviewed and interpreted this EKG as follows: Prior EKG tracings: available for review EKG Rhythm Intrepretation: Atrial Paced Radiology Impression Hip/Pelvis X-Ray 05/18/21 09:27 IMPRESSION: Intertrochanteric fracture of the left proximal femur. Electronically Signed: Félix Wills MD at 10:52 EDT Tel , Service support , Chest X-Ray 05/18/21 10:20 IMPRESSION: No acute thoracic pathology. Electronically Signed: Félix Wills MD at 10:50 EDT Tel , Service support , Assessment & Plan Assessment/Plan (1) Closed intertrochanteric fracture of left hip: QUALIFIERS: Encounter type: initial encounter Fracture alignment: nondisplaced Qualified Code(s): S72.145A - Nondisplaced intertrochanteric fracture of left femur, initial encounter for closed fracture PLAN: 1. Left closed intertrochanteric hip fracture Status post fall on 05/17 NSQIP: Patient is high risk for serious complication, any complication, surgical site infection, and discharged to nursing or rehab facility. Surgery would really essentially be the only viable option is patient does have some quality of life even though she just pivots. Patient is medically optimized and once her apixaban is out of her system to proceed with surgery though granted she would be higher risk. Orthopedic surgery on consultation to discuss further with the family in regards to definitive management and further recommendations. We will check a 25-hydroxy vitamin D level 2. CKD 3a Creatinine up from 2020. I would not qualify this as acute kidney injury Monitor for now 3. Paroxysmal atrial fibrillation Status post atrial pacemaker Apixaban on hold 4. VTE prophylaxis SCDs. Resume apixaban afterwards. Discussed with the patient's daughter in law at bedside and son on the phone.. Charges/Coding Visit Charges Inpatient E&M: 50337 Init Hosp L2
--- NOTE | 2021-05-18 13:27 | CT_ITS ---
STUDY: CT BRAIN WITHOUT CONTRAST REASON FOR EXAM: Female, 81 years old. Fall RADIATION DOSAGE (If Supplied By Facility): CTDIvol = ( 44.99 ) mGy, DLP = ( 829.85 ) mGycm TECHNIQUE: Transaxial CT imaging of the brain was performed without administration of intravenous contrast material. Individualized dose optimization techniques were used for this CT. COMPARISON: 10/28/19 FINDINGS: There is a stable old large right MCA territory infarct with encephalomalacia. There is no acute bleed or infarct. There are stable chronic ischemic and atrophic changes. The ventricles are normal in configuration. There is no hydrocephalus. The visualized paranasal sinuses are clear. The mastoid air cells are well aerated. There is no skull fracture. CT/Brain/Head without Contrast IMPRESSION: Stable old large right MCA territory infarct with encephalomalacia. Stable chronic ischemic and atrophic changes. No acute intracranial abnormality. Electronically Signed: Félix Wills MD at 14:11 EDT Tel , Service support ,
--- NOTE | 2021-05-18 13:36 | NURSING ---
med surg jopperi intertrochanteric fx, lt hip, acute kidney injury
[2021-05-18 14:04] VITALS: BP 129/71; PULSE 68; RESP 18; TEMP 36.8; O2SAT 97
--- NOTE | 2021-05-18 14:08 | NURSING ---
DR BERNARDO IN ER
--- NOTE | 2021-05-18 14:14 | PCM.CONS.GEN ---
Assessment & Plan Assessment/Plan (1) Closed intertrochanteric fracture of left hip: QUALIFIERS: Encounter type: initial encounter Fracture alignment: nondisplaced Qualified Code(s): S72.145A - Nondisplaced intertrochanteric fracture of left femur, initial encounter for closed fracture PLAN: Left intertrochanteric hip fracture Plan for trochanteric femoral nail On Eliquis needs held Plan for surgery 05/20/2021 if medically cleared. HPI Consult Data Date of Consult: 05/18/21 HPI Narrative HPI Narrative: LEOPOLDO PONCE, is a 81 F who presents after ground-level fall injuring left hip. She is currently on Eliquis last dose this morning. She denies other injury. [facility] Medical History Abnormal thyroid function test Acute on chronic diastolic (congestive) heart failure Anxiety Anxiety with depression AV junctional bradycardia CVA (cerebral vascular accident) (05/2019) Cystitis Depression Diastolic dysfunction Dysphagia Essential (primary) hypertension Hyperlipidemia Iron deficiency anemia Lumbar disc herniation with radiculopathy Non-rheumatic tricuspid valve insufficiency Nonobstructive atherosclerosis of coronary artery PAF (paroxysmal atrial fibrillation) Physical debility Presence of permanent cardiac pacemaker (07/13/15) Secondary pulmonary arterial hypertension Sick sinus syndrome Stool incontinence Stroke/cerebrovascular accident Syncope and collapse Type 2 diabetes mellitus Visual hallucinations Home Medications atorvastatin 40 mg PO QHS 06/06/19 [History Last Taken Unknown] duloxetine 60 mg PO DAILY 06/06/19 [History Last Taken Unknown] acetaminophen 650 mg G-TUBE TID udc 09/06/19 [Rx Last Taken Unknown] amlodipine 10 mg PO DAILY tab 09/06/19 [Rx Last Taken Unknown] bisacodyl 10 mg RECTAL .PRN X 1 PRN suppos. 09/06/19 [Rx Last Taken Unknown] capsaicin 56.6 g TP TID PRN PRN #1 cream..g. 09/06/19 [Rx Last Taken Unknown] latanoprost 1 drp EACH EYE DAILY@2200 bottle 09/06/19 [Rx Last Taken Unknown] lidocaine-prilocaine 1 g TOPICAL TID PRN PRN tube 09/06/19 [Rx Last Taken Unknown] magnesium hydroxide 30 ml PO .PRN X 1 PRN udc 09/06/19 [Rx Last Taken Unknown] flecainide 100 mg PO BID 10/28/19 [History Last Taken Unknown] losartan 100 mg PO DAILY 10/28/19 [History Last Taken Unknown] potassium chloride 10 meq PO BID 10/28/19 [History Last Taken Unknown] carvedilol 12.5 mg tablet 12.5 mg PO BID 04/21/20 [History Last Taken Unknown] pantoprazole 40 mg tablet,delayed release 40 mg PO DAILY 04/21/20 [History Last Taken Unknown] quetiapine 50 mg tablet 50 mg PO QHS 04/21/20 [History Last Taken Unknown] apixaban 5 mg tablet 2.5 mg PO BID tab 04/26/21 [History Last Taken Unknown] cyanocobalamin (vitamin B-12) 500 mcg tablet 500 mcg PO DAILY 04/26/21 [History Last Taken Unknown] metformin 500 mg tablet 1,000 mg PO BID tab 04/26/21 [History Last Taken Unknown] risperidone 0.5 mg tablet 0.25 mg PO DAILY tab 04/26/21 [History Last Taken Unknown] sennosides 8.6 mg tablet 8.6 mg PO DAILY 04/26/21 [History Last Taken Unknown] sodium chloride 0.65 % nasal spray aerosol 1 spray INTRANASAL ONCE 04/26/21 [History Last Taken Unknown] Allergy/AdvReac Type Severity Reaction Status Date / Time amlodipine AdvReac Mild Itching Verified 05/18/21 09:08 Family History Sister Diabetes Hypertension Father , age 60 of [place] Heart disease Hypertension Myocardial infarction Mother , age 91 of cancer Cancer Surgical History History of hysterectomy History of knee surgery History of left heart catheterization (01/2010) History of lumbar discectomy PEG (percutaneous endoscopic gastrostomy) status Social History Smoking Status: Never smoker alcohol intake: current alcohol intake frequency: holidays/special occasions only Alcohol type: wine substance use type: does not use caffeine: No Physical Exam Const no apparent distress General Appearance: cooperative Orientation / Consciousness: awake Extremity Extremity Narrative: Positive logroll left lower extremity compartments soft neurovascular intact Lab / Micro Data Result Diagrams: 05/18/21 09:35 09/14/21 09:35 Labs: Laboratory Results - last 24 hr 05/18/21 09:35: WBC 5.8, RBC 3.76 L, Hgb 10.9 L, Hct 34.1 L, MCV 90.7, MCH 29.0, MCHC 32.0, RDW Std Deviation 46.8 H, RDW Coeff of Keyur 14.0, Plt Count 258, MPV 10.7, Immature Gran % (Auto) 0.300, Neut % (Auto) 61.0, Lymph % (Auto) 21.0, Bureau % (Auto) 17.2 H, Eos % (Auto) 0.3, Baso % (Auto) 0.2, Absolute Neuts (auto) 3.6, Absolute Lymphs (auto) 1.22, Nucleated RBC % 0 05/18/21 09:35: Sodium 138, Potassium 4.9, Chloride 104, Carbon Dioxide 25.0, Anion Gap 9, BUN 25 H, Creatinine 1.40 H, Estim Creat Clear Calc 28.84, Est GFR (MDRD) Af Amer 47 L, Est GFR (MDRD) Non-Af 38 L, BUN/Creatinine Ratio 17.9, Glucose 147 H, Calcium 9.4, Total Bilirubin 0.40, AST 24, ALT 22, Alkaline Phosphatase 108, Total Protein 7.4, Albumin 3.1 L, Globulin 4.3 H, Albumin/Globulin Ratio 0.7 L 05/18/21 11:28: Urine Color Yellow, Urine Clarity Clear, Urine pH 5.0, Ur Specific [place] 1.025, Urine Protein 30 H, Urine Glucose (UA) Normal, Urine Ketones 5 H, Urine Occult Blood Negative, Urine Nitrite Negative, Urine Bilirubin Negative, Urine Urobilinogen Normal, Ur Leukocyte Esterase 25 H, Urine RBC 0 SEEN, Urine WBC 0 SEEN, Ur Squamous Epith Cells 0-5 SEEN, Urine Bacteria 0 SEEN, Urine Mucus 0 SEEN Micro: Microbiology 05/18/21 10:03 Nasal Secretion SARS-CoV-2 Antigen (Rapid) - Final Radiology Impression Hip/Pelvis X-Ray 05/18/21 09:27 IMPRESSION: Intertrochanteric fracture of the left proximal femur. Electronically Signed: Félix Wills MD at 10:52 EDT Tel , Service support , Chest X-Ray 05/18/21 10:20 IMPRESSION: No acute thoracic pathology. Electronically Signed: Félix Wills MD at 10:50 EDT Tel , Service support , Brain CT 05/18/21 13:27 IMPRESSION: Stable old large right MCA territory infarct with encephalomalacia. Stable chronic ischemic and atrophic changes. No acute intracranial abnormality. Electronically Signed: Félix Wills MD at 14:11 EDT Tel , Service support ,
[2021-05-18 15:02] VITALS: BP 147/74; PULSE 63; RESP 16; TEMP 37.3; O2SAT 97
[2021-05-18 15:06] VITALS: BMI 26.9
[2021-05-18] MEDS: 0.9% Normal Saline 1,000 ML 150 ML IV (16:14)
[2021-05-18 18:28] VITALS: BP 135/73; PULSE 60; RESP 16; TEMP 36.8; O2SAT 98
--- NOTE | 2021-05-18 18:32 | RAD_ITS ---
STUDY: X-RAY - LEFT WRIST REASON FOR EXAM: Female, 81 years old. Pain TECHNIQUE: 2 view(s) of the wrist were obtained. COMPARISON: Forearm October 14, 2017, October 09, 2017 left wrist x-ray FINDINGS: There is demineralization of the radius and ulna. There is degenerative arthrosis of the radiocarpal articulation. Normal distal radioulnar articulation. There is demineralization of the carpal bones. There is age indeterminant mildly widened appearance of the scapholunate joint. There is mild degenerative arthrosis of the carpometacarpal articulation of the thumb. Normal second through fifth carpometacarpal articulations. There is demineralization of the metacarpal bones. The soft tissue structures are unremarkable. RAD/Wrist 2 Views IMPRESSION: Age-indeterminate scapholunate sprain more apparent on prior study. Bony osteopenia. Degenerative change. Electronically Signed: Cindy Franz MD at 5:42 EDT Tel , Service support ,
--- NOTE | 2021-05-18 18:50 | RAD_ITS ---
STUDY: X-RAY - LEFT HAND REASON FOR EXAM: Female, 81 years old. Wrist pain. TECHNIQUE: 2 view(s) of the hand. COMPARISON: None. FINDINGS: There is joint space narrowing of the radiocarpal articulation consistent with degenerative arthrosis. Normal distal radioulnar joint. There is diffuse demineralization of the carpal bones. Stable increased distance between the scaphoid and lunate bone. Normal carpometacarpal articulation of the thumb. Normal second through fifth carpometacarpal joints. Demineralization. There is degenerative arthrosis of the metacarpophalangeal (MCP) joints. Normal interphalangeal joint of the thumb. Normal proximal and distal phalanges of the thumb. Flexion deformity of the metacarpophalangeal joints as well as the interphalangeal joints. Soft tissue swelling. RAD/Hand 2 Views IMPRESSION: Demineralization of the bony structures. Flexion deformity of the metacarpophalangeal and interphalangeal joints. Increased distance between the scaphoid and lunate bone suggestive of possible ligamentous strain. Electronically Signed: Steve Ramos MD at 9:00 EDT , Service support ,
[2021-05-18 20:00] LABS: International Normalized Ratio 1.2; Prothrombin Time (Protime)PT. 14.2 SECONDS (11.7-14.9)
[2021-05-18 20:01] LABS: Partial Thromboplast Time 30.7 Seconds (24.1-36.2)
[2021-05-18 23:00] VITALS: BP 136/69; PULSE 62; RESP 18; TEMP 37.4; O2SAT 92
[2021-05-18] MEDS: oxyCODONE 5 MG Tablet 10 MG PO (23:18)
[2021-05-18] MEDS: Acetaminophen 325 MG Tablet 650 MG PO (23:19)
--- NOTE | 2021-05-18 23:26 | PCS.PANDOC ---
PANDEMIC DOCUMENTATION INITIATED: Date: 04/19/2021 Time: 190
[2021-05-19] VITALS (7 sets, daily range): BP systolic 128–147; BP diastolic 75–83; PULSE 63–70; RESP 13–16; TEMP 36.6–37.2; O2SAT 87–95
[2021-05-19 07:20] LABS: Anion Gap 5 (5-15); BUN 20 mg/dL (7-18); BUN/Creat Ratio 18.9 RATIO (10-20); Calcium,Total 8.5 mg/dL (8.5-10.1); Chloride 104 mmol/L (98-107); Creatinine, Serum 1.06 mg/dL (0.55-1.02); EST Glomerular Filtration Rate 53 mL/min (>60); Est Glom Filt Rate - Afr Amer 64 mL/min (>60); Estimated Creatinine Clearance 36.55 ml/min; Glucose 128 mg/dL (74-106); Potassium 3.8 mmol/L (3.5-5.1); Sodium Level 135 mmol/L (136-145)
[2021-05-19] MEDS: Acetaminophen 325 MG Tablet 650 MG PO ×2 (08:03→20:32)
[2021-05-19] MEDS: oxyCODONE 5 MG Tablet 10 MG PO (08:04)
[2021-05-19 08:50] LABS: Vitamin D,25 Hydroxy 33.7 ng/mL
--- NOTE | 2021-05-19 10:04 | CASEMGMT ---
Addendum entered by Анна Vences 05/19/21 11:16: BIA faxed clinicals to [facility]. Addendum entered by Анна Vences 05/19/21 11:14: SW reviewed chart. Pt with confusion, alert and orientated x1. Pt's daughter Angela listed as POA for pt. BIA placed a call to Angela and introduced self and role at [facility]. Angela confirms pt is from [facility] manager intermediate and will be returning at discharge. BIA informed Angela that [facility] may want to get various exceptionalities teacher since pt has hip fracture. Angela agreeable to pt returning to skilled if needed. BIA still waiting for [facility] to call this worker back. Original Note: Social Work Note Pt is listed as being from [facility]. BIA placed a call to [facility]. Charley with admissions is not in today, Joan covering for Charley. BIA left message for Joan to call this worker regarding pt. Анна Vences TAPE CALENDER, PICTURE FRAME MAKER
--- NOTE | 2021-05-19 12:56 | PCM.PN.ORT ---
Subjective Subjective Patient seen and examined she is comfortable and compliant Objective Data Objective Data Vital Signs: Vital Signs Temp Pulse Resp BP Pulse Ox 97.9 F 63 13 139/83 H 93 05/19/21 09:42 05/19/21 09:42 05/19/21 09:42 05/19/21 09:42 05/19/21 09:42 Oxygen Flow Rate (L/min) 2 Oxygen Delivery Method Nasal Cannula Weight: 156 lb 15.506 oz Body Mass Index (BMI) 26.9 Intake & Output: Intake and Output for Last 24 Hours 05/17/21 05/18/21 05/19/21 23:59 23:59 23:59 Intake Total 2225 / 2225 300 / 300 Output Total 550 / 550 225 / 225 Balance 1675 / 1675 75 / 75 Lab / Micro Data Result Diagrams: 05/18/21 09:35 05/19/21 06:42 Labs: Laboratory Results - last 24 hr 05/18/21 19:39: PT 14.2, INR 1.2, APTT 30.7 05/19/21 06:42: Sodium 135 L, Potassium 3.8, Chloride 104, Carbon Dioxide 26.0, Anion Gap 5, BUN 20 H, Creatinine 1.06 H, Estim Creat Clear Calc 36.55, Est GFR (MDRD) Af Amer 64, Est GFR (MDRD) Non-Af 53 L, BUN/Creatinine Ratio 18.9, Glucose 128 H, Calcium 8.5 05/19/21 06:42: Vitamin D 25-Hydroxy 33.7 Micro: Microbiology 05/18/21 10:03 Nasal Secretion SARS-CoV-2 Antigen (Rapid) - Final Radiography Diagnostic Testing: Radiology Impression Brain CT 05/18/21 13:27 IMPRESSION: Stable old large right MCA territory infarct with encephalomalacia. Stable chronic ischemic and atrophic changes. No acute intracranial abnormality. Electronically Signed: Félix Wills MD at 14:11 EDT Tel , Service support , Wrist X-Ray 05/18/21 18:32 IMPRESSION: Age-indeterminate scapholunate sprain more apparent on prior study. Bony osteopenia. Degenerative change. Electronically Signed: Cindy Franz MD at 5:42 EDT Tel , Service support , Hand X-Ray 05/18/21 18:50 IMPRESSION: Demineralization of the bony structures. Flexion deformity of the metacarpophalangeal and interphalangeal joints. Increased distance between the scaphoid and lunate bone suggestive of possible ligamentous strain. Electronically Signed: Steve Ramos MD at 9:00 EDT , Service support , Physical Exam Const no apparent distress General Appearance: cooperative Extremity Extremity Narrative: Left lower extremity positive logroll compartments soft Assessment & Plan Assessment/Plan (1) Closed intertrochanteric fracture of left hip: QUALIFIERS: Encounter type: initial encounter Fracture alignment: nondisplaced Qualified Code(s): S72.145A - Nondisplaced intertrochanteric fracture of left femur, initial encounter for closed fracture PLAN: Plan for definitive cephalomedullary fixation of left hip tomorrow antibiotics on-call to the OR Will resume Eliquis 12 hours postoperatively
--- NOTE | 2021-05-19 14:55 | PCM.PN.HOSP ---
Subjective Subjective Feels better. Objective Data Objective Data Vital Signs: Vital Signs Temp Pulse Resp BP Pulse Ox 36.6 C 68 14 139/83 H 93 05/19/21 09:42 05/19/21 13:24 05/19/21 13:24 05/19/21 09:42 05/19/21 13:24 Oxygen Flow Rate (L/min) 2 Oxygen Delivery Method Nasal Cannula Weight: 71.2 kg Body Mass Index (BMI) 26.9 Intake & Output: Intake and Output for Last 24 Hours 05/17/21 05/18/21 05/19/21 23:59 23:59 23:59 Intake Total 2225 / 2225 500 / 500 Output Total 550 / 550 725 / 725 Balance 1675 / 1675 -225 / -225 Lab / Micro Data Result Diagrams: 05/18/21 09:35 05/19/21 06:42 Labs: Laboratory Results - last 24 hr 05/18/21 19:39: PT 14.2, INR 1.2, APTT 30.7 05/19/21 06:42: Sodium 135 L, Potassium 3.8, Chloride 104, Carbon Dioxide 26.0, Anion Gap 5, BUN 20 H, Creatinine 1.06 H, Estim Creat Clear Calc 36.55, Est GFR (MDRD) Af Amer 64, Est GFR (MDRD) Non-Af 53 L, BUN/Creatinine Ratio 18.9, Glucose 128 H, Calcium 8.5 05/19/21 06:42: Vitamin D 25-Hydroxy 33.7 Micro: Microbiology 05/18/21 10:03 Nasal Secretion SARS-CoV-2 Antigen (Rapid) - Final Radiography Diagnostic Testing: Radiology Impression Wrist X-Ray 05/18/21 18:32 IMPRESSION: Age-indeterminate scapholunate sprain more apparent on prior study. Bony osteopenia. Degenerative change. Electronically Signed: Cindy Franz MD at 5:42 EDT Tel , Service support , Hand X-Ray 05/18/21 18:50 IMPRESSION: Demineralization of the bony structures. Flexion deformity of the metacarpophalangeal and interphalangeal joints. Increased distance between the scaphoid and lunate bone suggestive of possible ligamentous strain. Electronically Signed: Steve Ramos MD at 9:00 EDT , Service support , Physical Exam Const alert Resp normal respiratory effort, no retractions, no use of accessory muscles and clear to auscultation bilaterally Cardio regular rate, regular rhythm, S1 normal heart sound and S2 normal heart sound GI normal to inspection, nondistended, normoactive bowel sounds, soft to palpation, non-tender and non-distended Neuro Sensorium / Orientation: awake and alert Assessment & Plan Assessment/Plan (1) Closed intertrochanteric fracture of left hip: QUALIFIERS: Encounter type: initial encounter Fracture alignment: nondisplaced Qualified Code(s): S72.145A - Nondisplaced intertrochanteric fracture of left femur, initial encounter for closed fracture PLAN: 1. Left closed intertrochanteric hip fracture Status post fall on 05/17 NSQIP: Patient is high risk for serious complication, any complication, surgical site infection, and discharged to nursing or rehab facility. Surgery would really essentially be the only viable option is patient does have some quality of life even though she just pivots. Patient is medically optimized and once her apixaban is out of her system to proceed with surgery though granted she would be higher risk. Orthopedic surgery on consultation to discuss further with the family in regards to definitive management and further recommendations. 25-hydroxy vitamin D level was 33.7. Will start ergocalciferol 50,000 units weekly for 8 weeks. CEDRIC Magallon. Plan for surgery 05/20. 2. CKD 3a Creatinine up from 2019. I would not qualify this as acute kidney injury Monitor for now 3. Paroxysmal atrial fibrillation Status post atrial pacemaker Apixaban on hold 4. VTE prophylaxis SCDs. Resume apixaban afterwards. 5. Left wrist pain: Status post fall X-rays showed strain. Charges/Coding Visit Charges Inpatient E&M: 41433 Subs Hosp L2
[2021-05-19] MEDS: oxyCODONE 5 MG Tablet PO (15:29)
[2021-05-19] MEDS: Ergocalciferol 1.25 MG (50, 000 UNIT) Capsule PO (15:31)
[2021-05-19] MEDS: Carvedilol 12.5 MG Tablet PO (20:37)
[2021-05-19] MEDS: QUEtiapine 25 MG Tablet 50 MG PO (20:38)
[2021-05-19] MEDS: Atorvastatin Calcium 40 MG Tablet PO (20:39)
[2021-05-19] MEDS: Latanoprost 0.005% 1 Bottle 1 DRP EACH EYE (20:44)
[2021-05-19] MEDS: Flecainide 100 MG Tablet PO (22:41)
[2021-05-20] VITALS (13 sets, daily range): BP systolic 100–185; BP diastolic 66–99; PULSE 60–83; RESP 12–18; TEMP 36.4–37.3; O2SAT 92–100; BMI 27.1
[2021-05-20] MEDS: Acetaminophen 325 MG Tablet 650 MG PO (04:47)
[2021-05-20 06:35] LABS: Absolute Lymphocyte Count 0.95 X10^3/uL (0.83-4.51); Absolute Neutrophil Count 1.7 X10^3/uL (2.0-7.7); Basophil# 0.01 X10^3/uL; Basophil% 0.3 % (0-1); Eosinophil# 0.09 X10^3/uL; Eosinophils% 2.4 % (0-5); Hematocrit 27.5 % (37-47); Hemoglobin 8.8 g/dL (12.0-15.0); Lymphocyte # 0.95 X10^3/ul (0.83-4.51); Lymphocyte % 25.3 % (19-41); Mean Corpuscular Hgb 29.1 pg (27.0-32.0); Mean Corpuscular Volume 91.1 fL (81-99); Mean Platelet Vol. 10.8 fl (6.2-12.0); Monocyte# 0.99 X10^3/uL; Monocyte% 26.3 % (0-10); NRBC Flagged by Analyzer 0 % (0-5); Neutrophil # 1.71 X10^3/uL (2.7-7.7); Neutrophil % 45.4 % (47-70); Platelet Count 210 K/mm3 (150-450); RBC Distribution Width CV 13.5 % (11.6-14.6); RBC Distribution Width SD 45.1 fl (35.1-43.9); Red Blood Count 3.02 M/mm3 (4.2-5.4); White Blood Count 3.8 K/mm3 (4.4-11.0)
[2021-05-20] MEDS: Flecainide 100 MG Tablet PO ×2 (08:18→22:42)
[2021-05-20 08:47] LABS: Hemoglobin A1c 6.6 % (3.8-5.6)
--- NOTE | 2021-05-20 09:07 | PCS.PANDOC ---
PANDEMIC DOCUMENTATION INITIATED: Date: 04/19/2021 Time: 189905/18/21 1445
--- NOTE | 2021-05-20 09:53 | CASEMGMT ---
Social Work Note BIA placed a call to [facility] and spoke with Charley in admissions. Charley confirms pt is fci, will want to skill pt. Charley states pt will need to remain at [facility] until pre-cert is obtained for skilled. BIA informed Charley that pt is having surgery later this afternoon, will get PT/OT sent over [facility] after pt has surgery. Charley states understanding. Plan: [facility] pending pre-cert Анна Vences COMPUTER GAME DESIGNER, OPERATIONS AND MAINTENANCE TECHNICIAN
--- NOTE | 2021-05-20 14:24 | PCM.PN.HOSP ---
Subjective Subjective Feels well. Denies any complaints. Objective Data Objective Data Vital Signs: Vital Signs Temp Pulse Resp BP Pulse Ox 37.3 C H 66 16 154/84 H 98 05/20/21 13:43 05/20/21 13:43 05/20/21 13:43 05/20/21 13:43 05/20/21 13:43 Oxygen Flow Rate (L/min) 2 Oxygen Delivery Method Room Air Weight: 71.9 kg Body Mass Index (BMI) 27.1 Intake & Output: Intake and Output for Last 24 Hours 05/18/21 05/19/21 05/20/21 23:59 23:59 23:59 Intake Total 2225 / 2225 1000 / 1000 Output Total 550 / 550 1750 / 1750 500 / 500 Balance 1675 / 1675 -750 / -750 -500 / -500 Lab / Micro Data Result Diagrams: 05/20/21 05:40 05/19/21 06:42 Labs: Laboratory Results - last 24 hr 05/20/21 05:40: WBC 3.8 L, RBC 3.02 L, Hgb 8.8 L, Hct 27.5 L, MCV 91.1, MCH 29.1, MCHC 32.0, RDW Std Deviation 45.1 H, RDW Coeff of Keyur 13.5, Plt Count 210, MPV 10.8, Immature Gran % (Auto) 0.300, Neut % (Auto) 45.4 L, Lymph % (Auto) 25.3, Patrick % (Auto) 26.3 H, Eos % (Auto) 2.4, Baso % (Auto) 0.3, Absolute Neuts (auto) 1.7 L, Absolute Lymphs (auto) 0.95, Nucleated RBC % 0 05/20/21 05:40: Hemoglobin A1c 6.6 H 05/20/21 05:40: Blood Type B POSITIVE, Antibody Screen NEGATIVE Micro: Microbiology 05/18/21 10:03 Nasal Secretion SARS-CoV-2 Antigen (Rapid) - Final Physical Exam Const alert Resp normal respiratory effort, no retractions, no use of accessory muscles and clear to auscultation bilaterally Cardio regular rate, regular rhythm, S1 normal heart sound and S2 normal heart sound GI normal to inspection, nondistended, normoactive bowel sounds, soft to palpation, non-tender and non-distended Assessment & Plan Assessment/Plan (1) Closed intertrochanteric fracture of left hip: QUALIFIERS: Encounter type: initial encounter Fracture alignment: nondisplaced Qualified Code(s): S72.145A - Nondisplaced intertrochanteric fracture of left femur, initial encounter for closed fracture PLAN: 1. Left closed intertrochanteric hip fracture Status post fall on 05/17 NSQIP: Patient is high risk for serious complication, any complication, surgical site infection, and discharged to nursing or rehab facility. Surgery would really essentially be the only viable option is patient does have some quality of life even though she just pivots. Patient is medically optimized and once her apixaban is out of her system to proceed with surgery though granted she would be higher risk. Orthopedic surgery on consultation to discuss further with the family in regards to definitive management and further recommendations. 25-hydroxy vitamin D level was 33.7. Will start ergocalciferol 50,000 units weekly for 8 weeks. CEDRIC Magallon. Plan for surgery 05/20. 2. CKD 3a Creatinine up from 2019. I would not qualify this as acute kidney injury Monitor for now 3. Paroxysmal atrial fibrillation Status post atrial pacemaker Apixaban on hold 4. VTE prophylaxis SCDs. Resume apixaban afterwards. 5. Left wrist pain: Status post fall X-rays showed strain. 6. Code status Reviewed DNR form from 06/06/2019. Change to DNRCCA Charges/Coding Visit Charges Inpatient E&M: 77126 Subs Hosp L2
[2021-05-20] MEDS: Lactated Ringers 1,000 ML 100 ML IV (14:50)
--- NOTE | 2021-05-20 15:45 | RAD_ITS ---
EXAM: XR LEFT HIP WITH PELVIS WHEN PERFORMED, 1 VIEW : 1941 CLINICAL INDICATION: TROCHANTERIC FIXATION NAIL LEFT TECHNIQUE: Frontal view of the left hip with pelvis when performed. This report was created using [employer] report generation technology. COMPARISON: None. FINDINGS: BONES/JOINTS: Images were obtained intraoperatively. These show placement of intramedullary jason screw across a femoral neck fracture. Fracture fragment are in anatomic alignment. No destructive or sclerotic lesions. Note that overlapping bowel shadows may however obscure fine detail. Sacroiliac joint is unremarkable. No widening of the pubic symphisis. The articular structures are unremarkable. SOFT TISSUES: Unremarkable. No soft tissue swelling or gas. RAD/Hip 1 view with Pelvis IMPRESSION: ORIF of a left hip fracture. at 2239 Reported and signed by: Pato Brewer MD Electronically Signed: Pato Brewer MD at 22:37 EDT Tel , Service support ,
[2021-05-20] MEDS: Cefazolin 2 GM in 0.9% Normal Saline 100 ML IV (16:00)
--- NOTE | 2021-05-20 16:53 | OP.PCM_ITS ---
Report of Operation Date of Procedure: 05/20/21 Description of Surgical Findings:: Preoperative diagnosis: Left hip intertrochanteric femur fracture Postoperative diagnosis: Same Procedure: Cephalo-medullary fixation right hip Implants: Sanam gamma nail short nail [125 degree with 100 mm compression screw, with a 37-1/2 distal locking screw EBL: 50 Complications: None Condition: Stable to PACU Indication for procedure: 81-year-old female patient with ground-level fall sustaining injury to hip. Fracture demonstrated intertrochanteric femur fracture pattern. Risk benefits and alternatives were reviewed including risk of bleeding infection nerve, artery, bone, tissue damage, blood clot need for fu rther surgery and continued pain. Procedure: Patient met in the preoperative holding area once again the operative extremity was identified by both patient and physician and was marked. Patient was met by anesthesia and IV was started . patient was brought back to the to the operating room anesthesia was started. Patient was then positioned on the fracture table all bony prominences were well-padded. patient was then positioned with abduction internal rotation and traction and fluoroscopy was brought in to ensure that an adequate reduction could be performed. Patient was then prepped and draped in usual sterile fashion and timeout was called to ensure the proper patient procedure and extremity were being contemplated. Fluoroscopy was used to khari the tip of the greater trochanter and a 3 fingerbreadth incision was made 2 finger breaths proximal to the tip of the greater trochanter. Was carried carried down through the skin and subcutaneous tissue as well as the gluteal fascia. Guidepin was then inserted through the tip of the greater trochanter directed towards the level of lesser trochanter this was checked in both AP and lateral projections. An opening reamer was performed. Following this was the insertion of the nail the appropriate height jig was used and a triple trocar sleeve was advanced to the skin and a stab incision was made at the trocar was inserted to the level of the bone and a guidepin was placed into the femoral neck and head checked on both AP and lateral projections. It was difficult to achieve perfect center position on the lateral view and the tip was slightly posterior on this view which after multiple attempts was felt to be adequate this was then measured and appropriately sized compression screw was inserted the nail was locked proxima lly the fracture was compressed and a locking screw was placed distally the same incision was extended slightly distally to allow the insertion of the trocar for the transverse screw. This was then drilled and measured under fluoroscopy and the appropriate size screw was inserted. Final AP and lateral projections were saved to the PACS system of the entire construct the wounds were thoroughly irrigated the fascia was closed with #1 [id number] Vicryls followed by 2-0 Vicryl in the subcutaneous tissues followed by valeriano in the skin. 0.5% Marcaine with epinephrine was injected into the subcutaneous tissues dressing was applied form of Xeroform 4 x 4 ABD and Ioban tape. Patient tolerated procedure well there is no intraoperative complications and was brought back to the PACU in stable condition.
--- NOTE | 2021-05-20 16:56 | PN.ORTHO_ITS ---
Objective Data Objective Data Vital Signs: Vital Signs Temp Pulse Resp BP Pulse Ox 99.2 F H 66 16 154/84 H 98 05/20/21 13:43 05/20/21 13:43 05/20/21 13:43 05/20/21 13:43 05/20/21 13:43 Oxygen Flow Rate (L/min) 2 Oxygen Delivery Method Room Air Weight: 158 lb 8.198 oz Body Mass Index (BMI) 27.1 Intake & Output: Intake and Output for Last 24 Hours 05/18/21 05/19/21 05/20/21 23:59 23:59 23:59 Intake Total 2225 / 2225 1000 / 1000 Output Total 550 / 550 1750 / 1750 500 / 500 Balance 1675 / 1675 -750 / -750 -500 / -500 Lab / Micro Data Result Diagrams: 05/20/21 05:40 05/19/21 06:42 Labs: Laboratory Results - last 24 hr 05/20/21 05:40: WBC 3.8 L, RBC 3.02 L, Hgb 8.8 L, Hct 27.5 L, MCV 91.1, MCH 29 .1, MCHC 32.0, RDW Std Deviation 45.1 H, RDW Coeff of Keyur 13.5, Plt Count 210, MPV 10.8, Immature Gran % (Auto) 0.300, Neut % (Auto) 45.4 L, Lymph % (Auto) 25.3, [place] % (Auto) 26.3 H, Eos % (Auto) 2.4, Baso % (Auto) 0.3, Absolute Neuts (auto) 1.7 L, Absolute Lymphs (auto) 0.95, Nucleated RBC % 0 05/20/21 05:40: Hemoglobin A1c 6.6 H 05/20/21 05:40: Blood Type B POSITIVE, Antibody Screen NEGATIVE Micro: Microbiology 05/18/21 10:03 Nasal Secretion SARS-CoV-2 Antigen (Rapid) - Final Assessment & Plan Assessment/Plan (1) Closed intertrochanteric fracture of left hip: QUALIFIERS: Encounter type: initial encounter Fracture alignment: nondisplaced Qualified Code(s): S72.145A - Nondisplaced intertrochanteric fracture of left femur, initial encounter for closed fracture PLAN: Postop day #0 left cephalomedullary fixation for intertrochanteric fracture PT OT weightbearing as tolerated Dressing to be left on for 72 hours postop and then removed prior to for shower then begin daily dressing changes and showering daily after this point Eliquis to resume tomorrow morning [place] to be removed 14 to 17 days postop follow-up in the office in 2 weeks
[2021-05-20] MEDS: Lidocaine 1% /Epi 1:100 (20ml) 20 ML Vial (17:18)
[2021-05-20 18:46] LABS: Bedside Glucose 176 mg/dL (70-110)
[2021-05-20] MEDS: Cefazolin 1 GM/50 ML BAG IV (22:39)
[2021-05-20] MEDS: Latanoprost 0.005% 1 Bottle 1 DRP EACH EYE (22:40)
[2021-05-20] MEDS: QUEtiapine 25 MG Tablet 50 MG PO (22:42)
[2021-05-20] MEDS: Atorvastatin Calcium 40 MG Tablet PO (22:42)
[2021-05-20] MEDS: 0.9% Saline Lock 10 ML Syringe IV (22:54)
[2021-05-20] MEDS: Acetaminophen 500 MG Tablet 1000 MG PO (22:58)
[2021-05-21] VITALS (10 sets, daily range): BP systolic 101–144; BP diastolic 63–80; PULSE 65–70; RESP 12–18; TEMP 36.2–36.6; O2SAT 91–100; BMI 27.2
[2021-05-21] MEDS: Lactated Ringers 1,000 ML 100 ML IV ×2 (04:01→15:30)
[2021-05-21 05:48] LABS: Absolute Lymphocyte Count 0.64 X10^3/uL (0.83-4.51); Absolute Neutrophil Count 1.8 X10^3/uL (2.0-7.7); Hematocrit 26.9 % (37-47); Hemoglobin 8.6 g/dL (12.0-15.0); Lymphocyte # 0.64 X10^3/ul (0.83-4.51); Lymphocyte % 21.7 % (19-41); Mean Corpuscular Hgb 28.7 pg (27.0-32.0); Mean Corpuscular Volume 89.7 fL (81-99); Mean Platelet Vol. 10.2 fl (6.2-12.0); Monocyte# 0.46 X10^3/uL; Monocyte% 15.6 % (0-10); NRBC Flagged by Analyzer 0 % (0-5); Neutrophil # 1.84 X10^3/uL (2.7-7.7); Neutrophil % 62.4 % (47-70); Platelet Count 233 K/mm3 (150-450); RBC Distribution Width CV 13.1 % (11.6-14.6)
[2021-05-21 06:11] LABS: Anion Gap 6 (5-15); BUN 18 mg/dL (7-18); BUN/Creat Ratio 18.2 RATIO (10-20); Calcium,Total 9.4 mg/dL (8.5-10.1); Chloride 106 mmol/L (98-107); Creatinine, Serum 0.99 mg/dL (0.55-1.02); EST Glomerular Filtration Rate 57 mL/min (>60); Est Glom Filt Rate - Afr Amer 69 mL/min (>60); Estimated Creatinine Clearance 39.14 ml/min; Glucose 192 mg/dL (74-106); Potassium 3.8 mmol/L (3.5-5.1); Sodium Level 140 mmol/L (136-145)
[2021-05-21] MEDS: Cefazolin 1 GM/50 ML BAG IV ×2 (06:18→14:07)
[2021-05-21] MEDS: Acetaminophen 500 MG Tablet 1000 MG PO ×3 (06:19→21:10)
[2021-05-21] MEDS: APIXABAN 5 MG TABLET PO ×2 (06:19→21:10)
[2021-05-21] MEDS: Ferrous Sulfate 325 MG Tablet PO (08:16)
[2021-05-21] MEDS: Carvedilol 12.5 MG Tablet PO ×2 (08:16→16:55)
[2021-05-21] MEDS: metFORMIN HCl 1,000 MG Tablet 1000 MG PO ×2 (08:16→16:55)
[2021-05-21] MEDS: DULoxetine Hcl 60 MG Capsule PO (08:19)
[2021-05-21] MEDS: RisperiDONE 0.25 MG Tablet PO (08:20)
[2021-05-21] MEDS: Pantoprazole Sodium 40 MG Tablet PO (08:20)
[2021-05-21] MEDS: Flecainide 100 MG Tablet PO ×2 (08:21→21:10)
[2021-05-21] MEDS: amLODIPine 10 MG Tablet PO ×2 (08:22→08:24)
[2021-05-21] MEDS: Cyanocobalamin 500 MCG Tablet PO (08:22)
[2021-05-21] MEDS: Losartan Potassium 100 MG Tablet PO (08:26)
--- NOTE | 2021-05-21 09:04 | PCM.PN.ORT ---
Subjective Subjective Upon entering the room the patient was seated and resting comfortably. She states her pain is well controlled. She has no concerns at this time. Denies shortness of breath, chest pains, nausea, vomiting, fevers, chills. Objective Data Objective Data Vital Signs: Vital Signs Temp Pulse Resp BP Pulse Ox 97.3 F L 70 16 144/80 H 100 05/21/21 06:05 05/21/21 06:05 05/21/21 06:05 05/21/21 06:05 05/21/21 06:05 Oxygen Flow Rate (L/min) 2 Oxygen Delivery Method Nasal Cannula Weight: 158 lb 8.198 oz Body Mass Index (BMI) 27.1 Intake & Output: Intake and Output for Last 24 Hours 05/19/21 05/20/21 05/21/21 23:59 23:59 23:59 Intake Total 1000 / 1000 160 / 160 1919.33 / 1919.33 Output Total 1750 / 1750 900 / 900 730 / 730 Balance -750 / -750 -740 / -740 1189.33 / 1189.33 Lab / Micro Data Result Diagrams: 05/21/21 05:36 05/21/21 05:36 Labs: Laboratory Results - last 24 hr 05/20/21 18:42: POC Glucose 176 H 05/21/21 05:36: WBC 3.0 L, RBC 3.00 L, Hgb 8.6 L, Hct 26.9 L, MCV 89.7, MCH 28.7, MCHC 32.0, RDW Std Deviation 43.0, RDW Coeff of Keyur 13.1, Plt Count 233, MPV 10.2, Immature Gran % (Auto) 0.300, Neut % (Auto) 62.4, Lymph % (Auto) 21.7, [place] % (Auto) 15.6 H, Eos % (Auto) 0.0, Baso % (Auto) 0.0, Absolute Neuts (auto) 1.8 L, Absolute Lymphs (auto) 0.64 L, Nucleated RBC % 0 05/21/21 05:36: Sodium 140, Potassium 3.8, Chloride 106, Carbon Dioxide 28.0, Anion Gap 6, BUN 18, Creatinine 0.99, Estim Creat Clear Calc 39.14, Est GFR (MDRD) Af Amer 69, Est GFR (MDRD) Non-Af 57 L, BUN/Creatinine Ratio 18.2, Glucose 192 H, Calcium 9.4 Micro: Microbiology 05/18/21 10:03 Nasal Secretion SARS-CoV-2 Antigen (Rapid) - Final Radiography Diagnostic Testing: Radiology Impression Hip/Pelvis X-Ray 05/20/21 15:45 IMPRESSION: ORIF of a left hip fracture. at 2239 Reported and signed by: Pato Brewer MD Electronically Signed: Pato Brewer MD at 22:37 EDT Tel , Service support , Physical Exam Const alert, oriented x3 and no apparent distress General Appearance: cooperative Extremity Extremity Narrative: Dressing, clean, dry and intact. Palpable pedal pulses. Soft compartments. Negative Homans. Assessment & Plan Assessment/Plan (1) Closed intertrochanteric fracture of left hip: QUALIFIERS: Encounter type: initial encounter Fracture alignment: nondisplaced Qualified Code(s): S72.145A - Nondisplaced intertrochanteric fracture of left femur, initial encounter for closed fracture PLAN: Postop day #1 left cephalomedullary fixation for intertrochanteric fracture: PT/OT weightbearing as tolerated Dressing to be left on for 72 hours postop and then removed prior to for shower then begin daily dressing changes and showering daily after this point Eliquis to resume tomorrow morning [place] to be removed 14 to 17 days postop Follow-up in the office in 2 weeks
--- NOTE | 2021-05-21 09:42 | CASEMGMT ---
Addendum entered by Анна Vences 05/21/21 14:03: SW in to speak with pt. Pt is alert and orientated x2. SW informed pt that she will be returning to [facility] [place] skilled at discharge. Pt states understanding. Addendum entered by Анна Vences 05/21/21 13:01: SW faxed PT/OT evaluations to [facility]. BIA placed a call to [facility] and spoke with Charley in admissions. Charley confirms they received PT/OT and will submit for pre-cert. SW asked Charley if she was adamant they needed pre-cert for pt to return and Charley states business office is adamant that they need pre-cert before pt can return to [facility]. SW asked Charley if there was any possibility of getting pre-cert over the weekend, Charley states it would be a slim possibility. SW asked Charley to have [facility] call [facility] over the weekend if pre-cert is obtained. Charley states understanding. BIA placed a call to pt's daughter DHEERAJ Miller for pt. BIA updated Angela that [facility] is wanting to skill pt, will need to await for pre-cert before pt can discharge to [facility]. Angela states understanding. BIA placed Green sheet, transport forms, COVID test on pt's chart in the event pre-cert is obtained. Pt will need a COVID test on day of discharge. Plan: Return to [facility] skilled pending pre-cert *Pt will need COVID test on day of discharge DAVID Noriega Original Note: Social Work Note PT/OT needed, SW ordered PT/OT. SW to fax PT/OT evaluations once completed to [facility] so pre-cert can be submitted. Plan: Return to [facility] skilled pending pre-cert DAVID Noriega
--- NOTE | 2021-05-21 15:45 | PCM.PN.HOSP ---
Subjective Subjective Feels well. Objective Data Objective Data Vital Signs: Vital Signs Temp Pulse Resp BP Pulse Ox 36.2 C L 65 12 101/65 91 05/21/21 12:51 05/21/21 12:51 05/21/21 13:22 05/21/21 12:51 05/21/21 12:51 Oxygen Flow Rate (L/min) 2 Oxygen Delivery Method Nasal Cannula Weight: 71.9 kg Body Mass Index (BMI) 27.1 Intake & Output: Intake and Output for Last 24 Hours 05/19/21 05/20/21 05/21/21 23:59 23:59 23:59 Intake Total 1000 / 1000 160 / 160 2741.00 / 2741.00 Output Total 1750 / 1750 900 / 900 730 / 730 Balance -750 / -750 -740 / -740 Lab / Micro Data Result Diagrams: 05/21/21 05:36 05/21/21 05:36 Labs: Laboratory Results - last 24 hr 05/20/21 18:42: POC Glucose 176 H 05/21/21 05:36: WBC 3.0 L, RBC 3.00 L, Hgb 8.6 L, Hct 26.9 L, MCV 89.7, MCH 28.7, MCHC 32.0, RDW Std Deviation 43.0, RDW Coeff of Keyur 13.1, Plt Count 233, MPV 10.2, Immature Gran % (Auto) 0.300, Neut % (Auto) 62.4, Lymph % (Auto) 21.7, [place] % (Auto) 15.6 H, Eos % (Auto) 0.0, Baso % (Auto) 0.0, Absolute Neuts (auto) 1.8 L, Absolute Lymphs (auto) 0.64 L, Nucleated RBC % 0 05/21/21 05:36: Sodium 140, Potassium 3.8, Chloride 106, Carbon Dioxide 28.0, Anion Gap 6, BUN 18, Creatinine 0.99, Estim Creat Clear Calc 39.14, Est GFR (MDRD) Af Amer 69, Est GFR (MDRD) Non-Af 57 L, BUN/Creatinine Ratio 18.2, Glucose 192 H, Calcium 9.4 Micro: Microbiology 05/18/21 10:03 Nasal Secretion SARS-CoV-2 Antigen (Rapid) - Final Radiography Diagnostic Testing: Radiology Impression Hip/Pelvis X-Ray 05/20/21 15:45 IMPRESSION: ORIF of a left hip fracture. at 2239 Reported and signed by: Pato Brewer MD Electronically Signed: Pato Brewer MD at 22:37 EDT Tel , Service support , Physical Exam Const alert HEENT Head and Scalp: normocephalic Resp normal respiratory effort, no retractions, no use of accessory muscles and clear to auscultation bilaterally Cardio regular rate, regular rhythm, S1 normal heart sound and S2 normal heart sound GI normal to inspection, nondistended, normoactive bowel sounds, soft to palpation, non-tender and non-distended Extremity normal to inspection Assessment & Plan Assessment/Plan (1) Closed intertrochanteric fracture of left hip: QUALIFIERS: Encounter type: initial encounter Fracture alignment: nondisplaced Qualified Code(s): S72.145A - Nondisplaced intertrochanteric fracture of left femur, initial encounter for closed fracture PLAN: 1. Left closed intertrochanteric hip fracture Status post fall on 05/17 NSQIP: Patient is high risk for serious complication, any complication, surgical site infection, and discharged to nursing or rehab facility. Surgery would really essentially be the only viable option is patient does have some quality of life even though she just pivots. Patient is medically optimized and once her apixaban is out of her system to proceed with surgery though granted she would be higher risk. Orthopedic surgery on consultation to discuss further with the family in regards to definitive management and further recommendations. 25-hydroxy vitamin D level was 33.7. Will start ergocalciferol 50,000 units weekly for 8 weeks. s/p IM nail on 05/20 2. CKD 3a Creatinine up from 2019. I would not qualify this as acute kidney injury Monitor for now 3. Paroxysmal atrial fibrillation Status post atrial pacemaker Apixaban resumed 4. VTE prophylaxis back on apixaban 5. Left wrist pain: Status post fall X-rays showed strain. 6. Code status Reviewed DNR form from 06/06/2019. Change to DNRCCA 7. disposition: medically stable. awaiting precert Charges/Coding Visit Charges Inpatient E&M: 10288 Subs Hosp L2
--- NOTE | 2021-05-21 16:06 | CASEMGMT ---
Addendum entered by Charly Santillan 05/21/21 16:10: Clarification: Palliative notified of referral via VM on Palliative care phone line. Original Note: JEREL DIAZ NOTE: Pt qualifies for a Palliative referral per the [facility] palliative screening tool at this time. Dr Shah aware and states ok for Palliative c/s at this time. Order placed. Palliative updated at this time. Face Sheet faxed to Palliative at this time. Johnson RIOS RN CM
--- NOTE | 2021-05-21 16:11 | CASEMGMT ---
Addendum entered by Анна Vences 05/21/21 16:25: BIA received call from Charley at [facility] stating pre-cert is still pending however they are willing to accept pt tomorrow skilled without pre-cert. BIA informed Charley that pt will be discharged to [facility] tomorrow then. BIA placed Green sheet, transport forms, COVID tool on pt's chart. Pt will need new COVID test on day of discharge. Plan: [facility] skilled tomorrow (Monday) Original Note: Social Work Note BIA placed a call to [facility] and spoke with Yareli. BIA asked for Charley, Charley is on another phone call. BIA asked for Charley to call this worker back. Plan: Return to [facility] skilled pending pre-cert Анна Vences BRAIN SURGEON, [employer]AT FARM[employer]
--- NOTE | 2021-05-21 20:01 | NURSING ---
Jaylyn [phone] (daughter in [place]) called and would like pt to stay in [facility] for therapy either tcu or rehab before going back to [facility].
[2021-05-21] MEDS: QUEtiapine 25 MG Tablet 50 MG PO (21:10)
[2021-05-21] MEDS: Atorvastatin Calcium 40 MG Tablet PO (21:10)
[2021-05-21] MEDS: Latanoprost 0.005% 1 Bottle 1 DRP EACH EYE (21:11)
[2021-05-22] MEDS: Lactated Ringers 1,000 ML 100 ML IV (00:45)
[2021-05-22 00:54] VITALS: BMI 27.2
[2021-05-22 03:32] VITALS: BP 118/67; PULSE 70; RESP 16; TEMP 37.2; O2SAT 94
[2021-05-22] MEDS: Acetaminophen 500 MG Tablet 1000 MG PO (06:23)
[2021-05-22 07:12] VITALS: O2SAT 88
--- NOTE | 2021-05-22 09:10 | TREXTCAR_ITS ---
Diet 05/20/21 16:47 Diet: Regular - General Is pt able to select menu?: No Routine Orders/Code Status Code Status: DNRCC-A Wound(s) LEFT THIGH: Wound Type: Surgical Incision (dressing to be left on until 05/23/2021, then removed prior to shower. Then begin daily dressing changes and showering daily afterwards. ) Therapies Weight Bearing: Weight bearing as tolerated Extremity Affected:: Left Lower Physical Therapy: Eval and Treat Occupational Therapy: Eval and Treat Problem/Diagnosis (1) Closed intertrochanteric fracture of left hip: Status: Acute Allergies/Procedures Done in Hospital Allergies amlodipine Adverse Reaction (Mild, Verified 05/20/21 14:32) Itching mild itching (Dr Joselo stock) Type of Care/Length of Stay Estimated LOS: Convalescent Care Less Than 30 days Type of Care Needed: Skilled Rehab Potential: Fair Prognosis: Fair Additional Orders/Day of Discharge Additional Orders: Palliative Care Day of Discharge: 05/22/21 Discharge Plan Admission Admit Date/Time: 05/18/21 12:26 Primary Reason for Your Visit: left hip fracture Attending Provider: Kvng Shah Primary Care Provider: Nafisa Chawla Consulting Providers: Yasir Magallon Discharge Orders/Prescriptions Prescriptions: New ergocalciferol (vitamin D2) [Vitamin D2] 1,250 mcg (50,000 unit) Capsule 1,250 mcg PO Q7D Qty: 1 RF: 0 oxycodone 5 mg Tablet 5 mg PO Q6H PRN (Reason: pain (scale score 7-10)) 3 Days Qty: 12 RF: 0 Continued carvedilol 12.5 mg tablet 12.5 mg PO BID RF: 0 pantoprazole 40 mg tablet,delayed release (DR/EC) 40 mg PO DAILY RF: 0 quetiapine [Seroquel] 50 mg tablet 50 mg PO QHS RF: 0 metformin 500 mg tablet 1,000 mg PO BID RF: 0 risperidone [Risperdal] 0.5 mg tablet 0.25 mg PO DAILY RF: 0 sodium chloride [Saline Nasal] 0.65 % aerosol,spray 1 spray intranasal ONCE RF: 0 sennosides [Senna Laxative] 8.6 mg tablet 8.6 mg PO DAILY RF: 0 cyanocobalamin (vitamin B-12) [Vitamin B-12] 500 mcg tablet 500 mcg PO DAILY RF: 0 atorvastatin 40 MG tablet 40 mg PO QHS RF: 0 duloxetine 60 MG capsule 60 mg PO DAILY RF: 0 bisacodyl 10 MG suppository 10 mg RECTAL .PRN X 1 PRN (Reason: Constipation) RF: 0 lidocaine-prilocaine 5 GM cream 1 g topical TID PRN PRN (Reason: R shoulder pain with Zostrix ) RF: 0 magnesium hydroxide 30 ML suspension 30 ml PO .PRN X 1 PRN (Reason: Constipation) RF: 0 potassium chloride 20 MEQ/15 ML liquid 10 meq PO BID RF: 0 flecainide 100 MG tablet 100 mg PO BID RF: 0 losartan 100 MG tablet 100 mg PO DAILY RF: 0 apixaban 5 mg tablet 2.5 mg PO BID RF: 0 acetaminophen [Acetaminophen Extra Strength] 500 mg Tablet 500 mg PO Q6H PRN (Reason: Fever Or Pain) RF: 0 ferrous sulfate 325 mg (65 mg iron) Tablet 325 mg PO DAILY RF: 0 Fleet Enema 19-7 gram/118 mL Enema 118 ml [place] DAILY PRN (Reason: Constipation) RF: 0 latanoprost 1 DROP drops 1 drop EACH EYE DAILY@2200 RF: 0 amlodipine 10 MG tablet 10 mg PO DAILY RF: 0 Discontinued tramadol 50 mg tablet 50 mg PO Q6H PRN PRN (Reason: Pain) RF: 0 psyllium husk [Metamucil] 0.52 gram Capsule 0.52 g PO BID RF: 0 Referrals / Follow Up: Nafisa Chawla DO [Primary Care Provider] - Within 1 Month Yasir Magallon DO [STAFF PHYSICIAN] - Within 2 Weeks Disposition Disposition (needs filled in before D/C Order can be placed): Intermediate Facility
--- NOTE | 2021-05-22 09:38 | DS.PCM_ITS ---
Providers Date of Admission: 05/18/21 Primary Care Physician: Dr. Nafisa Chawla, DO Consultations 05/18/21 13:01 Consult: Orthopedics Routine Consulting Provider: Yasir Magallon Reason for Consult: left hip fxr EMERGENT Consult: No MD Notified: Yes Date Notified: 05/18/21 Time Notified: 12:58 Method of Notification: saw patient in the ER Reason For Visit: HIP FXR Diagnosis Discharge Diagnosis (1) Closed intertrochanteric fracture of left hip: Status: Acute Code(s): S72.142A - Displaced intertrochanteric fracture of left femur, initial encounter for closed fracture Qualifiers: Encounter type: initial encounter Fracture alignment: nondisplaced Qualified Code(s): S72.145A - Nondisplaced intertrochanteric fracture of left femur, initial encounter for closed fracture Medications at Discharge Home Medications atorvastatin 40 mg PO QHS 06/06/19 duloxetine 60 mg PO DAILY 06/06/19 bisacodyl 10 mg RECTAL .PRN X 1 PRN suppos. 09/06/19 lidocaine-prilocaine 1 g TOPICAL TID PRN PRN tube 09/06/19 magnesium hydroxide 30 ml PO .PRN X 1 PRN udc 09/06/19 flecainide 100 mg PO BID 10/28/19 losartan 100 mg PO DAILY 10/28/19 potassium chloride 10 meq PO BID 10/28/19 carvedilol 12.5 mg tablet 12.5 mg PO BID 04/21/20 pantoprazole 40 mg tablet,delayed release 40 mg PO DAILY 04/21/20 quetiapine 50 mg tablet 50 mg PO QHS 04/21/20 apixaban 5 mg tablet 2.5 mg PO BID tab 04/26/21 cyanocobalamin (vitamin B-12) 500 mcg tablet 500 mcg PO DAILY 04/26/21 metformin 500 mg tablet 1,000 mg PO BID tab 04/26/21 risperidone 0.5 mg tablet 0.25 mg PO DAILY tab 04/26/21 sennosides 8.6 mg tablet 8.6 mg PO DAILY 04/26/21 sodium chloride 0.65 % nasal spray aerosol 1 spray INTRANASAL ONCE 04/26/21 Fleet Enema 118 ml [place] DAILY PRN 05/18/21 acetaminophen [Acetaminophen Extra Strength] 500 mg PO Q6H PRN 05/18/21 amlodipine 10 mg PO DAILY 05/18/21 ferrous sulfate 325 mg PO DAILY 05/18/21 latanoprost 1 drop EACH EYE DAILY@2200 05/18/21 ergocalciferol (vitamin D2) [Vitamin D2] 1,250 mcg PO Q7D #1 cap 05/22/21 oxycodone 5 mg PO Q6H PRN 3 Days #12 tab 05/22/21 Hospital Course Operations - (Cephalo-medullary fixation right hip) Summary of Care Provided Minutes Spent on Discharge: 32 Hospital Course: 81-year-old female presents after a fall. The day of the fall with day before presentation. Patient was sitting on the commode and fell on her left side. Patient did not seek attention until the following day. Patient has had a stroke with left-sided hemiparesis. Patient was wheelchair-bound at baseline but does pivot transfer. Decision was to proceed with surgery with the patient and her family. Patient underwent a cephalomedullary fixation of the right hip on the . Patient tolerated procedure well. Patient [facility] condition. Physical Exam Const alert Resp normal respiratory effort Cardio regular rate, regular rhythm, S1 normal heart sound and S2 normal heart sound Extremity Extremity Narrative: Left hip bandaged, no evidence of any ecchymosis or any surrounding erythema. Weight / BMI Weight Weight: 71.9 kg Body Mass Index (BMI) 27.1 ABG / Lab / Microbiology Data Result Diagrams: 05/21/21 05:36 05/21/21 05:36 Microbiology: Microbiology 05/18/21 10:03 Nasal Secretion SARS-CoV-2 Antigen (Rapid) - Final Meaningful Use Info Meaningful Use Diagnoses (Choose all that apply): None applicable Discharge Plan Admission Admit Date/Time: 05/18/21 12:26 Primary Reason for Your Visit: left hip fracture Attending Provider: Kvng Shah Primary Care Provider: Nafisa Chawla Consulting Providers: Yasir Magallon Discharge Orders/Prescriptions Prescriptions: New ergocalciferol (vitamin D2) [Vitamin D2] 1,250 mcg (50,000 unit) Capsule 1,250 mcg PO Q7D Qty: 1 RF: 0 oxycodone 5 mg Tablet 5 mg PO Q6H PRN (Reason: pain (scale score 7-10)) 3 Days Qty: 12 RF: 0 Continued carvedilol 12.5 mg tablet 12.5 mg PO BID RF: 0 pantoprazole 40 mg tablet,delayed release (DR/EC) 40 mg PO DAILY RF: 0 quetiapine [Seroquel] 50 mg tablet 50 mg PO QHS RF: 0 metformin 500 mg tablet 1,000 mg PO BID RF: 0 risperidone [Risperdal] 0.5 mg tablet 0.25 mg PO DAILY RF: 0 sodium chloride [Saline Nasal] 0.65 % aerosol,spray 1 spray intranasal ONCE RF: 0 sennosides [Senna Laxative] 8.6 mg tablet 8.6 mg PO DAILY RF: 0 cyanocobalamin (vitamin B-12) [Vitamin B-12] 500 mcg tablet 500 mcg PO DAILY RF: 0 atorvastatin 40 MG tablet 40 mg PO QHS RF: 0 duloxetine 60 MG capsule 60 mg PO DAILY RF: 0 bisacodyl 10 MG suppository 10 mg RECTAL .PRN X 1 PRN (Reason: Constipation) RF: 0 lidocaine-prilocaine 5 GM cream 1 g topical TID PRN PRN (Reason: R shoulder pain with Zostrix ) RF: 0 magnesium hydroxide 30 ML suspension 30 ml PO .PRN X 1 PRN (Reason: Constipation) RF: 0 potassium chloride 20 MEQ/15 ML liquid 10 meq PO BID RF: 0 flecainide 100 MG tablet 100 mg PO BID RF: 0 losartan 100 MG tablet 100 mg PO DAILY RF: 0 apixaban 5 mg tablet 2.5 mg PO BID RF: 0 acetaminophen [Acetaminophen Extra Strength] 500 mg Tablet 500 mg PO Q6H PRN (Reason: Fever Or Pain) RF: 0 ferrous sulfate 325 mg (65 mg iron) Tablet 325 mg PO DAILY RF: 0 Fleet Enema 19-7 gram/118 mL Enema 118 ml [place] DAILY PRN (Reason: Constipation) RF: 0 latanoprost 1 DROP drops 1 drop EACH EYE DAILY@2200 RF: 0 amlodipine 10 MG tablet 10 mg PO DAILY RF: 0 Discontinued tramadol 50 mg tablet 50 mg PO Q6H PRN PRN (Reason: Pain) RF: 0 psyllium husk [Metamucil] 0.52 gram Capsule 0.52 g PO BID RF: 0 Referrals / Follow Up: Nafisa Chawla DO [Primary Care Provider] - Within 1 Month Borruso,Yasir, DO [STAFF PHYSICIAN] - Within 2 Weeks Disposition Disposition (needs filled in before D/C Order can be placed): Long Term Facility Charges/Coding Visit Charges Inpatient E&M: 23854 Disch Hosp
[2021-05-22 10:35] VITALS: BP 131/76; PULSE 66; RESP 18; TEMP 36.8; O2SAT 94
[2021-05-22] MEDS: DULoxetine Hcl 60 MG Capsule PO (10:46)
[2021-05-22] MEDS: Cyanocobalamin 500 MCG Tablet PO (10:47)
[2021-05-22] MEDS: Carvedilol 12.5 MG Tablet PO (10:47)
[2021-05-22] MEDS: Pantoprazole Sodium 40 MG Tablet PO (10:47)
[2021-05-22] MEDS: metFORMIN HCl 1,000 MG Tablet 1000 MG PO (10:48)
[2021-05-22] MEDS: APIXABAN 5 MG TABLET PO (10:48)
[2021-05-22] MEDS: Losartan Potassium 100 MG Tablet PO (10:48)
[2021-05-22] MEDS: RisperiDONE 0.25 MG Tablet PO (10:49)
[2021-05-22] MEDS: Ferrous Sulfate 325 MG Tablet PO (10:49)
[2021-05-22] MEDS: Flecainide 100 MG Tablet PO (10:50)
[2021-05-22] MEDS: oxyCODONE 5 MG Tablet PO (10:58)
[2021-05-22 13:53] VITALS: BP 97/52; PULSE 72; RESP 16; TEMP 36.5; O2SAT 93
--- NOTE | 2021-05-22 14:16 | NURSING ---
This nurse called Aleah Villalpando to give report and Nurse was busy. Was instructed to call back in 15 min to give report. 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
== END 2021-05-22 14:10 | disposition skilled nursing facility (03) | DRG 481 ==
LOC: ED 13:19 → MS3 13:51
PROVIDERS: Anesthesiology; Orthopaedic Surgery; Emergency Provider Emergency Medicine; PCP Internal Medicine
PROC: 0QS606Z Reposition Right Upper Femur with Intramedullary Internal Fixation Device, Open Approach (ICD-10-PCS; principal; 2021-05-20 15:15)
DX: S72.142A Displaced intertrochanteric fracture of left femur, initial encounter for closed fracture (principal); I69.354 Hemiplegia and hemiparesis following cerebral infarction affecting left non-dominant side; I50.32 Chronic diastolic (congestive) heart failure; I13.0 Hypertensive heart and chronic kidney disease with heart failure and stage 1 through stage 4 chronic kidney disease, or unspecified chronic kidney disease; W18.11XA Fall from or off toilet without subsequent striking against object, initial encounter; I27.21 Secondary pulmonary arterial hypertension; I48.0 Paroxysmal atrial fibrillation; N18.31 Chronic kidney disease, stage 3a; E11.22 Type 2 diabetes mellitus with diabetic chronic kidney disease; I25.10 Atherosclerotic heart disease of native coronary artery without angina pectoris; E78.5 Hyperlipidemia, unspecified; S66.912A Strain of unspecified muscle, fascia and tendon at wrist and hand level, left hand, initial encounter; F41.8 Other specified anxiety disorders; Z66 Do not resuscitate; Z79.899 Other long term (current) drug therapy; Z79.84 Long term (current) use of oral hypoglycemic drugs; Y93.89 Activity, other specified; Y92.9 Unspecified place or not applicable; Y99.9 Unspecified external cause status; Z99.3 Dependence on wheelchair; Z95.0 Presence of cardiac pacemaker
CPT/HCPCS: 36415; 51702; 70450; 71045; 73100; 73120; 73501; 73502; 76000; 80048; 80053; 81001; 82306; 82962; 83036; 85025; 85610; 85730; 86850; 86900; 86901; 87426; 93005; 94762; 97163; 97166; 99251; 99285; C1713; J7030; J7120; A4216; G0463; J2405

== ENCOUNTER 2022-04-24 20:23 | Inpatient (IN) | payer MEDICARE, SELFPAY ==
[2022-04-24 20:27] VITALS: BP 139/76; PULSE 81; RESP 19; TEMP 36.1; O2SAT 94; BMI 27.7
[2022-04-24 21:00] VITALS: BP 136/74; PULSE 63; PULSE 65; RESP 16; TEMP 36.1; O2SAT 95
[2022-04-24] MEDS: 0.9% Normal Saline 1,000 ML 75 ML IV (21:00)
[2022-04-24] MEDS: Heparin Injection (Vial) 5,000 UNIT/ML VIAL 5000 UNIT SC (21:45)
[2022-04-24 22:00] VITALS: BP 142/68; PULSE 60; RESP 22; TEMP 36.2; O2SAT 96
[2022-04-24 22:08] LABS: Anion Gap 10 (5-15); BUN 24 mg/dL (7-18); Calcium,Total 11.8 mg/dL (8.5-10.1); Chloride 105 mmol/L (98-107); EST Glomerular Filtration Rate 25 mL/min (>60); Est Glom Filt Rate - Afr Amer 31 mL/min (>60); Estimated Creatinine Clearance 17.45 ml/min; Glucose 150 mg/dL (74-106); Potassium 5.1 mmol/L (3.5-5.1); Sodium Level 138 mmol/L (136-145)
[2022-04-24 22:20] LABS: Lactic Acid 5.1 mmol/L (0.4-1.9)
--- NOTE | 2022-04-24 22:23 | PCM.HP.STD ---
HPI - General General Date of Admission: 04/24/22 Date of Service: 04/24/22 Chief Complaint: Altered mental status HPI Narrative LEOPOLDO PONCE, is a 82 F with a significant history of left side CVA; paroxysmal A. fib; and sick sinus syndrome who presented to outside hospital ED for change in mental status. Associated with her symptom is nausea. Of note patient was diagnosed with UTI reportedly on 04/21/2022 and started on Bactrim which she had taken for 3 days prior to presentation. At outside hospital ED her blood pressure was low at 77/52. Potassium was 6.5. She was found to be in third-degree heart block. With treatment of IV fluids; calcium; insulin and bicarbonate her heart rhythm flipped into paced rhythm. She was started on UTI at outside hospital. Initial lactic acid was 6; repeat was 5. Patient vitals improved to BP 113/76; 96 ?F; heart rate 78; respiratory rate 17 and oxygen saturation 95% on 2 L. Patient is unable to contribute his to history as she stated that she does not remember the events that led her to the emergency department. Stating that she is at a hospital for stroke. Upon further probe she admitted she had some nausea. Although reportedly patient came from [facility] upon history taking patient consented that she came from home and she has a home nurse. Transfer papers however shows that patient came from senior living. From review of paper records patient was sent to the ER for evaluation secondary to nausea, mid back pain and diaphoresis. And from further review of transfer papers EMS was called for altered mental status and upon arrival by EMS patient was hypotensive and severely bradycardic. [facility] Medical History Abnormal thyroid function test Acute on chronic diastolic (congestive) heart failure Anxiety Anxiety with depression AV junctional bradycardia CVA (cerebral vascular accident) (05/2019) Cystitis Depression Diastolic dysfunction Dysphagia Essential (primary) hypertension Hyperlipidemia Iron deficiency anemia Lumbar disc herniation with radiculopathy Non-rheumatic tricuspid valve insufficiency Nonobstructive atherosclerosis of coronary artery PAF (paroxysmal atrial fibrillation) Physical debility Presence of permanent cardiac pacemaker (07/13/15) Secondary pulmonary arterial hypertension Sick sinus syndrome Stool incontinence Stroke/cerebrovascular accident Syncope and collapse Type 2 diabetes mellitus Visual hallucinations Medical History unable to obtain Home Medications atorvastatin 40 mg tablet 40 mg PO QHS cholesterol 06/06/19 [History Last Taken Unknown] duloxetine 60 mg capsule,delayed release 60 mg PO DAILY depression 06/06/19 [History Last Taken Unknown] bisacodyl 10 mg rectal suppository 10 mg RECTAL .PRN X 1 PRN Constipation 09/06/19 [Rx Last Taken Unknown] magnesium hydroxide 400 mg/5 mL oral suspension 30 ml PO .PRN X 1 PRN Constipation 09/06/19 [Rx Last Taken Unknown] losartan 100 mg tablet 100 mg PO DAILY bp 10/28/19 [History Last Taken Unknown] carvedilol 12.5 mg tablet 12.5 mg PO BID htn 04/21/20 [History Last Taken Unknown] pantoprazole 40 mg tablet,delayed release 40 mg PO DAILY gerd 04/21/20 [History Last Taken Unknown] cyanocobalamin (vitamin B-12) 500 mcg tablet (Vitamin B-12) 500 mcg PO DAILY supplement 04/26/21 [History Last Taken Unknown] acetaminophen 500 mg tablet (Acetaminophen Extra Strength) 500 mg PO Q6H PRN Fever Or Pain 05/18/21 [History Last Taken Unknown] amlodipine 10 mg tablet 10 mg PO DAILY bp 05/18/21 [History Last Taken Unknown] ferrous sulfate 325 mg (65 mg iron) tablet 325 mg PO DAILY anemia 05/18/21 [History Last Taken Unknown] latanoprost 0.005 % eye drops 1 drp EACH EYE DAILY@2200 glaucoma 05/18/21 [History Last Taken Unknown] sodium phosphates 19 gram-7 gram/118 mL enema (Fleet Enema) 118 ml MS DAILY PRN Constipation 05/18/21 [History Last Taken Unknown] ergocalciferol (vitamin D2) 1,250 mcg (50,000 unit) capsule (Vitamin D2) 1,250 mcg PO Q7D #1 cap 05/22/21 [Rx Last Taken Unknown] albuterol sulfate 2.5 mg/3 mL (0.083 %) solution for nebulization 2.5 mg inhalation Q4H PRN 10/25/21 [History Last Taken Unknown] aluminum-mag hydroxide-simethicone 200 mg-200 mg-20 mg/5 mL oral susp 30 ml PO Q4H PRN 10/25/21 [History Last Taken Unknown] apixaban 2.5 mg tablet 2.5 mg PO BID 10/25/21 [History Last Taken Unknown] artifi.tears(hypromellose)(PF) 0.3 % eye drops 1 drp ophthalmic (eye) Q8H PRN 10/25/21 [History Last Taken Unknown] ascorbic acid (vitamin C) 500 mg tablet 500 mg PO DAILY 10/25/21 [History Last Taken Unknown] guaifenesin 100 mg/5 mL oral liquid 200 mg PO Q4H PRN 10/25/21 [History Last Taken Unknown] guaifenesin 400 mg tablet 400 mg PO BID 10/25/21 [History Last Taken Unknown] metformin 1,000 mg tablet 1,000 mg PO BID 10/25/21 [History Last Taken Unknown] potassium chloride 10 mEq capsule,extended release 10 meq PO BID 10/25/21 [History Last Taken Unknown] risperidone 0.5 mg tablet (Risperdal) 0.5 mg PO QHS behavior 10/25/21 [History Last Taken Unknown] sodium chloride 0.65 % nasal spray aerosol (Saline Nasal) 2 spray intranasal BID PRN nasal spray 10/25/21 [History Last Taken Unknown] flecainide 150 mg tablet 150 mg PO Q12H 02/17/22 [History Last Taken Unknown] Allergy/AdvReac Type Severity Reaction Status Date / Time hydralazine Allergy Unknown unknown Verified 10/25/21 09:13 amlodipine AdvReac Mild Itching Verified 05/20/21 14:32 Family History Sister Diabetes Hypertension Father , age 60 of [place] Heart disease Hypertension Myocardial infarction Mother , age 91 of cancer Cancer Family History unable to obtain Surgical History History of hysterectomy History of knee surgery History of left heart catheterization (01/2010) History of lumbar discectomy PEG (percutaneous endoscopic gastrostomy) status Surgical History unable to obtain Social History Smoking Status: Never smoker alcohol intake: current alcohol intake frequency: holidays/special occasions only Alcohol type: wine substance use type: does not use caffeine: No ROS Review of Systems ROS Unobtainable: due to mental status Vital Signs Vital Signs Vital Signs: 04/24/22 20:27 04/24/22 21:00 Temperature 97 F L 97 F L Temperature Source Temporal Temporal Pulse Rate 81 63 Respiratory Rate 19 H 16 Blood Pressure 139/76 H Blood Pressure [2nd BP] 136/74 H Blood Pressure Mean 97 Blood Pressure Mean [2nd BP] 94 Blood Pressure Source Monitor Blood Pressure Source [2nd BP] Monitor Blood Pressure Position Semi-Fowlers Blood Pressure Position [2nd BP] Semi-Fowlers Blood Pressure Location Left Arm Blood Pressure Location [2nd BP] Left Arm Pulse Ox 94 95 Oxygen Delivery Method Nasal Cannula Nasal Cannula Oxygen Flow Rate (L/min) 3 3 Weight Weight: 68.7 kg Body Mass Index (BMI) 27.7 Physical Exam Narrative Physical exam: General: Well-nourished, well-developed. Head: Normocephalic, atraumatic, no tenderness Eyes: Vision is grossly intact. EOMI ENT, no trauma, moist mucous membranes, no rhinorrhea Neck: Nontender, No thyromegaly. CVS: Regular rate and rhythm. S1-S2 present. No murmur, gallop or rub. Respiratory : clear to auscultation bilaterally, chest wall nontender, no wheezing Abdomen: Soft, nontender, nondistended, normal bowel sounds, no masses : Deferred Back: Nontender, no CVA tenderness. Extremities: Nontender full range of motion, no trauma Skin: Normal color, no trauma, abrasions Neuro: Alert, Forgetful; Left hand contracted. Difficult to raise Left upper extremity and to check for strength. Strength in left leg 4/5. Strength in R upper and right lower extremity 5/5 Psychiatry: Normal mood. Normal affect. Not depressed. Not anxious. Results Lab / Micro Data Result Diagrams: 04/24/22 21:40 Labs: Laboratory Results - last 24 hr 04/24/22 21:40: Sodium 138, Potassium 5.1, Chloride 105, Carbon Dioxide 23.0, Anion Gap 10, BUN 24 H, Creatinine 2.00 H, Estim Creat Clear Calc 17.45, Est GFR (MDRD) Af Amer 31 L, Est GFR (MDRD) Non-Af 25 L, BUN/Creatinine Ratio 12.0, Glucose 150 H, Calcium 11.8 H 04/24/22 21:40: Lactic Acid 5.1 H* Assessment & Plan Assessment/Plan (1) UTI (urinary tract infection): (2) Hyperkalemia: (3) GUSTAVO (acute kidney injury): PLAN: Plan UTI Received Zosyn at outside Hospital and continued. Cultures outpatient showed pansensitive organism. Will request culture results showing organism from senior living. Hyperkalemia Reportedly K 6.5 at outside hospital ED. Received sodium bicarbonate; normal saline infusion; insulin and dextrose. Trend BMP. Trend BMP. GUSTAVO Creatinine at outside hospital was 2.1. From review of hospital records had creatinine in 2020 was 0.99, 1.06 and 1.40. IV hydration. Trend BMP. Normal saline infusion ordered. Avoid nephrotoxic's Lactic acidosis Did not meet 2 SIRS criteria. qsofa is 1. Likely from infection. Trend. Admitted to intensive care unit. Aerospace Assembler consult DVT prophylaxis: Subcutaneous heparin ordered CODE STATUS DNR CCA, DNI. Charges/Coding Visit Charges Inpatient E&M: 06832 Init Hosp L3
[2022-04-24 23:00] VITALS: BP 133/72; PULSE 60; RESP 18; O2SAT 95
[2022-04-24 23:31] VITALS: PULSE 60
[2022-04-25] VITALS (23 sets, daily range): BP systolic 107–153; BP diastolic 62–96; PULSE 60–126; RESP 15–22; TEMP 35.9–37; O2SAT 92–99
[2022-04-25 01:53] LABS: Reflex Lactate? Y
[2022-04-25 02:50] LABS: Absolute Neutrophil Count 10.4 X10^3/uL (2.0-7.7); Basophil# 0.01 X10^3/uL; Basophil% 0.1 % (0-1); Hematocrit 33.5 % (37-47); Hemoglobin 10.9 g/dL (12.0-15.0); Lymphocyte % 12.1 % (19-41); Mean Corp Hgb Conc 32.5 g/dL (32-36); Mean Corpuscular Hgb 30.5 pg (27.0-32.0); Mean Corpuscular Volume 93.8 fL (81-99); Mean Platelet Vol. 10.7 fl (6.2-12.0); Monocyte# 1.17 X10^3/uL; Monocyte% 8.8 % (0-10); NRBC Flagged by Analyzer 0 % (0-5); Neutrophil # 10.41 X10^3/uL (2.7-7.7); Neutrophil % 78.5 % (47-70); Platelet Count 323 K/mm3 (150-450); RBC Distribution Width CV 13.6 % (11.6-14.6); RBC Distribution Width SD 46.3 fl (35.1-43.9); Red Blood Count 3.57 M/mm3 (4.2-5.4); White Blood Count 13.3 K/mm3 (4.4-11.0)
[2022-04-25 03:01] LABS: Anion Gap 9 (5-15); BUN 23 mg/dL (7-18); BUN/Creat Ratio 12.5 RATIO (10-20); Calcium,Total 10.5 mg/dL (8.5-10.1); Chloride 100 mmol/L (98-107); Creatinine, Serum 1.84 mg/dL (0.55-1.02); EST Glomerular Filtration Rate 28 mL/min (>60); Est Glom Filt Rate - Afr Amer 34 mL/min (>60); Estimated Creatinine Clearance 18.97 ml/min; Glucose 130 mg/dL (74-106); Potassium 4.4 mmol/L (3.5-5.1); Sodium Level 137 mmol/L (136-145)
[2022-04-25 03:33] LABS: Lactic Acid 3.2 mmol/L (0.4-1.9)
--- NOTE | 2022-04-25 04:12 | NURSING ---
Urine Culture, Blood cultures, UA requested from [facility] via phone, per GL[facility] OR MIRROR INSPECTOR at [facility] it will be faxed to us.
[2022-04-25] MEDS: 0.9% Normal Saline 1,000 ML 75 ML IV ×2 (05:50→18:25)
--- NOTE | 2022-04-25 06:51 | CON.PCM.CC_ITS ---
Assessment & Plan Assessment/Plan (1) GUSTAVO (acute kidney injury): PLAN: Plan RECOMMENDATIONS: 1. Continue gentle IV fluid resuscitation. 2. Continue empiric antimicrobials. 3. Check MRSA screen. 4. Send blood and urine cultures. 5. Avoid sedating medications. 6. Continue appropriate DVT prophylaxis. IMPRESSIONS: 1. Sepsis The patient presented to the hospital as a direct transfer with encephalopathy in the setting of a recently diagnosed urinary tract source of infection. The patient did have evidence of end organ dysfunction as manifested by altered mentation, lactic acidemia and acute kidney injury. Although she was initially hypotensive at presentation, the patient responded to fluid resuscitation. The patient remains hemodynamically stable. She will be maintained on empiric broad-spectrum antimicrobials for now. Blood and urine cultures will be sent. Will attempt to review outside hospital culture data as well. 2. Encephalopathy Most likely metabolic in etiology in the setting of #1. Continue supportive measures as noted above. Avoid sedating medications. 3. Acute kidney injury/hyperkalemia Most likely prerenal in etiology in the setting of #1. Anticipate stabilization/improvement with volume expansion. Continue to monitor urine output. No current indication for renal replacement therapy. 4. History of paroxysmal atrial fibrillation/sick sinus syndrome status post pacemaker placement/right MCA stroke Complicates care, management, recovery and prognosis. The patient will require PT evaluation once medically stabilized. This note was generated with [employer] dictation software. It may contain incorrect words, spelling, and punctuation that were not noted in checking the note before signing. HPI Consult Data Date of Consult: 04/26/22 HPI Narrative Reason for Consultation: Sepsis HPI Narrative: The patient is an 82-year-old female, with a history as outlined below, who presented as a direct admit with altered mentation in the setting of a recently diagnosed urinary tract infection. The patient has a history of paroxysmal atrial fibrillation, sick sinus syndrome status post pacemaker placement, and right MCA stroke in 2019. History pertinent to her hospitalization was obtained primarily via chart review, as the patient has too lethargic to participate in any conversation. According to documentation, the patient was diagnosed with a urinary tract infection several days ago and was started on Bactrim for Klebsiella that was isolated from her culture. When she presented to the outside hospital emergency department, she was notably tachycardic and hypotensive. Her potassium was elevated at 6.5. The patient was treated with supplemental IV fluids, calcium and insulin. Her initial vital signs improved with volume resuscitation. On presentation to the hospital, the patient was noted to be afebrile and hemo dynamically stable. She was maintaining appropriate oxygen saturations on 3 L/min via nasal cannula. Laboratory evaluation revealed a white blood cell count of 13,000. Creatinine was elevated at 1.84. Lactate was elevated at 5.1. The patient remains on empiric antimicrobials and IV fluids. [facility] Medical History Abnormal thyroid function test Acute on chronic diastolic (congestive) heart failure Anxiety Anxiety with depression AV junctional bradycardia CVA (cerebral vascular accident) (05/2019) Cystitis Depression Diastolic dysfunction Dysphagia Essential (primary) hypertension Hyperlipidemia Iron deficiency anemia Lumbar disc herniation with radiculopathy Non-rheumatic tricuspid valve insufficiency Nonobstructive atherosclerosis of coronary artery PAF (paroxysmal atrial fibrillation) Physical debility Presence of permanent cardiac pacemaker (07/13/15) Secondary pulmonary arterial hypertension Sick sinus syndrome Stool incontinence Stroke/cerebrovascular accident Syncope and collapse Type 2 diabetes mellitus Visual hallucinations Medical History unable to obtain Home Medications atorvastatin 40 mg tablet 40 mg PO QHS cholesterol 06/06/19 [History Last Taken Unknown] duloxetine 60 mg capsule,delayed release 60 mg PO DAILY depression 06/06/19 [History Last Taken Unknown] bisacodyl 10 mg rectal suppository 10 mg RECTAL .PRN X 1 PRN Constipation 09/06/19 [Rx Last Taken Unknown] magnesium hydroxide 400 mg/5 mL oral suspension 30 ml PO .PRN X 1 PRN Constipation 09/06/19 [Rx Last Taken Unknown] losartan 100 mg tablet 100 mg PO DAILY bp 10/28/19 [History Last Taken Unknown] carvedilol 12.5 mg tablet 12.5 mg PO BID htn 04/21/20 [History Last Taken Unknown] pantoprazole 40 mg tablet,delayed release 40 mg PO DAILY gerd 04/21/20 [History Last Taken Unknown] cyanocobalamin (vitamin B-12) 500 mcg tablet (Vitamin B-12) 1,000 mcg PO DAILY supplement 04/26/21 [History Last Taken Unknown] acetaminophen 500 mg tablet (Acetaminophen Extra Strength) 500 mg PO Q6H PRN Fever Or Pain 05/18/21 [History Last Taken Unknown] amlodipine 10 mg tablet 10 mg PO DAILY bp 05/18/21 [History Last Taken Unknown] ferrous sulfate 325 mg (65 mg iron) tablet 325 mg PO BIDCM anemia 05/18/21 [History Last Taken Unknown] latanoprost 0.005 % eye drops 2 drp EACH EYE DAILY@2200 glaucoma 05/18/21 [Hi story Last Taken Unknown] sodium phosphates 19 gram-7 gram/118 mL enema (Fleet Enema) 118 ml ME DAILY PRN Constipation 05/18/21 [History Last Taken Unknown] albuterol sulfate 2.5 mg/3 mL (0.083 %) solution for nebulization 2.5 mg inhalation Q4H PRN Shortness Of Breath Or Wheezing 10/25/21 [History Last Taken Unknown] aluminum-mag hydroxide-simethicone 200 mg-200 mg-20 mg/5 mL oral susp 30 ml PO Q4H PRN Stomach Upset 10/25/21 [History Last Taken Unknown] apixaban 2.5 mg tablet 2.5 mg PO BID 10/25/21 [History Last Taken Unknown] artifi.tears(hypromellose)(PF) 0.3 % eye drops 1 drp ophthalmic (eye) Q8H PRN Dry Eye(S) 10/25/21 [History Last Taken Unknown] ascorbic acid (vitamin C) 500 mg tablet 500 mg PO BIDCM 10/25/21 [History Last Taken Unknown] guaifenesin 100 mg/5 mL oral liquid 100 mg PO Q4H PRN Cough 10/25/21 [History Last Taken Unknown] metformin 1,000 mg tablet 1,000 mg PO BID 10/25/21 [History Last Taken Unknown] potassium chloride 10 mEq capsule,extended release 10 meq PO BID 10/25/21 [History Last Taken Unknown] risperidone 0.5 mg tablet (Risperdal) 0.5 mg PO QHS behavior 10/25/21 [History Last Taken Unknown] sodium chloride 0.65 % nasal spray aerosol (Saline Nasal) 2 spray intranasal BID PRN nasal spray 10/25/21 [History Last Taken Unknown] flecainide 150 mg tablet 150 mg PO Q12H 02/17/22 [History Last Taken Unknown] ergocalciferol (vitamin D2) 1,250 mcg (50,000 unit) capsule (Vitamin D2) 1,250 mcg PO [place]LE[place]AS 04/25/22 [History Last Taken Unknown] sulfamethoxazole 800 mg-trimethoprim 160 mg tablet 1 tab PO BID 04/25/22 [History Last Taken Unknown] Allergy/AdvReac Type Severity Reaction Status Date / Time hydralazine Allergy Unknown unknown Verified 10/25/21 09:13 amlodipine AdvReac Mild Itching Verified 05/20/21 14:32 Family History Sister Diabetes Hypertension Father , age 60 of [place] Heart disease Hypertension Myocardial infarction Mother , age 91 of cancer Cancer Family History unable to obtain Surgical History History of hysterectomy History of knee surgery History of left heart catheterization (01/2010) History of lumbar discectomy PEG (percutaneous endoscopic gastrostomy) status Surgical History unable to obtain Social History Smoking Status: Never smoker alcohol intake: current alcohol intake frequency: holidays/special occasions only Alcohol type: wine substance use type: does not use caffeine: No ROS Review of Systems ROS Unobtainable: due to mental status Physical Exam Const no apparent distress General Appearance: lethargic HEENT normocephalic and head/scalp atraumatic Eyes PERRL and EOMs intact bilaterally Neck supple General: trachea midline Chest inspection of chest normal Resp normal respiratory effort Auscultation: Negative for rales, rhonchi or wheezes Cardio S1 normal heart sound and S2 normal heart sound Rhythm: abnormal rhythm GI normal to inspection, nondistended, normoactive bowel sounds Extremity no clubbing, cyanosis or edema Skin no rashes or lesions noted Neuro Neuro Narrative: Lethargic. Not currently cooperating for neurologic examination. Psych Mood & Affect: flat affect Lab / Micro Data Result Diagrams: 04/26/22 06:00 04/26/22 06:00 Labs: Laboratory Results - last 24 hr 04/24/22 21:40: Sodium 138, Potassium 5.1, Chloride 105, Carbon Dioxide 23.0, Anion Gap 10, BUN 24 H, Creatinine 2.00 H, Estim Creat Clear Calc 17.45, Est GFR (MDRD) Af Amer 31 L, Est GFR (MDRD) Non-Af 25 L, BUN/Creatinine Ratio 12.0, Glucose 150 H, Calcium 11.8 H 04/24/22 21:40: Lactic Acid 5.1 H* 04/25/22 02:35: WBC 13.3 H, RBC 3.57 L, Hgb 10.9 L, Hct 33.5 L, MCV 93.8, MCH 30.5, MCHC 32.5, RDW Std Deviation 46.3 H, RDW Coeff of Keyur 13.6, Plt Count 323, MPV 10.7, Immature Gran % (Auto) 0.500, Neut % (Auto) 78.5 H, Lymph % (Auto) 12.1 L, Wolfe % (Auto) 8.8, Eos % (Auto) 0.0, Baso % (Auto) 0.1, Absolute Neuts (auto) 10.4 H, Absolute Lymphs (auto) 1.60, Nucleated RBC % 0 04/25/22 02:35: Sodium 137, Potassium 4.4, Chloride 100, Carbon Dioxide 28.0, An ion Gap 9, BUN 23 H, Creatinine 1.84 H, Estim Creat Clear Calc 18.97, Est GFR (MDRD) Af Amer 34 L, Est GFR (MDRD) Non-Af 28 L, BUN/Creatinine Ratio 12.5, Glucose 130 H, Calcium 10.5 H 04/25/22 02:35: Lactic Acid 3.2 H* Charges/Coding Visit Charges Inpatient E&M: 12102 Init Hosp L3
--- NOTE | 2022-04-25 09:28 | CASEMGMT ---
Patient is from [facility]. SW will check with family and [facility]. Yue Felix MSW SHERRIE
[2022-04-25] MEDS: Heparin Injection (Vial) 5,000 UNIT/ML VIAL 5000 UNIT SC (09:33)
--- NOTE | 2022-04-25 12:06 | CASEMGMT ---
BIA e-mailed updates to [facility]. BIA will also check with family to confirm the plan is to return to [facility]. Yue Felix MSW MARKETING AMBASSADOR
--- NOTE | 2022-04-25 13:21 | PCM.PN.HOSP ---
Subjective Subjective Patient presented overnight with sepsis type looking picture. Patient with dementia at baseline and was residing in a nursing facility. Was evidently diagnosed with a UTI 3 days prior to presentation was on Bactrim. Blood pressure was low at outside facility at 77/52 however she is stabilized here and not required any pressors. Potassium was 6.5. She was treated with IV fluids, calcium, insulin and bicarbonate and her heart rhythm stabilized from third-degree heart block. Her initial lactate at outside hospital 6 and has trended down. Objective Data Objective Data Vital Signs: Vital Signs Temp Pulse Resp BP Pulse Ox O2 Del Method O2 Flow Rate 97.7 F L 60 18 118/67 92 Room Air 2 04/25/22 12:00 04/25/22 12:00 04/25/22 12:00 04/25/22 12:00 04/25/22 12:00 04/25/22 12:00 04/25/22 08:00 Oxygen Flow Rate (L/min) 2 Oxygen Delivery Method Room Air Weight: 67.1 kg Body Mass Index (BMI) 27.7 Intake & Output: Intake and Output for Last 24 Hours 04/23/22 04/24/22 04/25/22 23:59 23:59 23:59 Intake Total 60 / 60 772.5 / 772.5 Output Total 2150 / 2150 Balance 60 / -140 -1377.5 / -1377.5 Lab / Micro Data Result Diagrams: 04/25/22 02:35 04/25/22 02:35 Labs: Laboratory Results - last 24 hr 04/24/22 21:40: Sodium 138, Potassium 5.1, Chloride 105, Carbon Dioxide 23.0, Anion Gap 10, BUN 24 H, Creatinine 2.00 H, Estim Creat Clear Calc 17.45, Est GFR (MDRD) Af Amer 31 L, Est GFR (MDRD) Non-Af 25 L, BUN/Creatinine Ratio 12.0, Glucose 150 H, Calcium 11.8 H 04/24/22 21:40: Lactic Acid 5.1 H* 04/25/22 02:35: WBC 13.3 H, RBC 3.57 L, Hgb 10.9 L, Hct 33.5 L, MCV 93.8, MCH 30.5, MCHC 32.5, RDW Std Deviation 46.3 H, RDW Coeff of Keyur 13.6, Plt Count 323, MPV 10.7, Immature Gran % (Auto) 0.500, Neut % (Auto) 78.5 H, Lymph % (Auto) 12.1 L, [place] % (Auto) 8.8, Eos % (Auto) 0.0, Baso % (Auto) 0.1, Absolute Neuts (auto) 10.4 H, Absolute Lymphs (auto) 1.60, Nucleated RBC % 0 04/25/22 02:35: Sodium 137, Potassium 4.4, Chloride 100, Carbon Dioxide 28.0, Anion Gap 9, BUN 23 H, Creatinine 1.84 H, Estim Creat Clear Calc 18.97, Est GFR (MDRD) Af Amer 34 L, Est GFR (MDRD) Non-Af 28 L, BUN/Creatinine Ratio 12.5, Glucose 130 H, Calcium 10.5 H 04/25/22 02:35: Lactic Acid 3.2 H* Physical Exam Const alert Constitutional Narrative: Elderly, white female lying in bed with eyes closed but answers questions, oriented to self and is aware she is in the hospital but unaware of which one, can tell me is 2021 but unclear on the month and tells me its November and tells me Mango is president, appears ill HEENT head/scalp atraumatic, moist oral mucous membranes and oropharynx normal HEENT Narrative: Dentition is good for age, Mallampati is 2, no thrush Head and Scalp: normocephalic Resp normal respiratory effort, no retractions, no use of accessory muscles and clear to auscultation bilaterally Auscultation: Negative for crackles, rales, rhonchi or wheezes Cardio regular rate, regular rhythm, S1 normal heart sound, S2 normal heart sound, no murmurs, no rub, no gallops, no clicks and no JVD GI normal to inspection, nondistended, normoactive bowel sounds, soft to palpation, non-tender and non-distended Extremity no clubbing, cyanosis or edema Extremity Narrative: 2+ pedal pulses Skin no rashes or lesions noted, no wounds, skin turgor normal, no jaundice, no petechiae and no mottling Skin Narrative: Pale Neuro CN's II-XII intact bilaterally, moves all extremities, no focal motor deficits and no sensory deficits noted Neuro Narrative: Significant generalized weakness Speech: speech normal Assessment & Plan Assessment/Plan (1) GUSTAVO (acute kidney injury): (2) Hyperkalemia: (3) Sepsis: (4) Toxic metabolic encephalopathy: PLAN: Plan Sepsis secondary to suspected UTI -Had been diagnosed with a UTI 3 days prior and was on Bactrim -Repeat blood and urine cultures here -Patient presented with encephalopathy/GUSTAVO/lactic acidosis/leukocytosis/hypotension -Blood pressures were initially low but have improved with IV fluids only and pressors have not yet been required -Continue broad-spectrum antibiotics -Encephalopathy seems to be resolving -Lactic acid is trending down -Critical care medicine is following GUSTAVO -Baseline serum creatinine 0.8-1 -Suspect elevation is related to sepsis with UTI and use of Bactrim -Serum creatinine is improving and is down to 1.84 from 2 on admission -Continue IV fluids -Repeat BMP in a.m. Hyperkalemia -Likely related to Bactrim use -Resolved -Likely caused heart arrhythmia Lactic acidosis -Resolving Third-degree heart block -Resolved -Secondary to hyperkalemia -Currently back in paced rhythm Toxic/metabolic encephalopathy -Patient with dementia at baseline however worsening mental status on presentation -Seems to be improving -Continue to monitor clinically Chronic anemia -Hemoglobin is at baseline and appears to be stable -Continue to monitor -Continue home iron supplementation SSS/PAF -Continue apixaban 2.5 mg p.o. twice daily -Continue flecainide -Patient is paced at baseline -Hold hold Coreg for right now with soft blood pressures Hypertension -Hold antihypertensives as blood pressures have been borderline -Reinitiate once blood pressures improve Hyperlipidemia -Continue statin DM-2 -Hold home metformin -Sliding scale insulin Depression -Continue duloxetine Intermittent constipation -Bowel regimen as ordered History of stroke -Patient does not appear to have any significant residual deficits -We will have PT/OT consultation -Patient is not on any and platelet medication Dementia -Patient with some behavioral issues related to her dementia will continue home Risperdal at at bedtime -Dementia type is unclear at this time however suspect Alzheimer's type versus vascular -We will further obtain baseline upon conversation with family tomorrow DVT prophylaxis -Continue home apixaban CODE STATUS -DNR CCA no intubation Charges/Coding Visit Charges Inpatient E&M: 08900 Subs Hosp L2
--- NOTE | 2022-04-25 15:42 | CASEMGMT ---
SW attempted to call patient's daughter Jaylyn to verify the plan is to return to [facility]. However, the phone rang several times and then SW was disconnected. BIA will try again. Yue BALDERAS
[2022-04-25] MEDS: Ferrous Sulfate 325 MG Tablet PO (16:54)
[2022-04-25 17:42] LABS: M R Staph aureus DNA By PCR Negative (Negative); Probe Check PASS; Specimen Processing Control PASS
[2022-04-25] MEDS: Glycerin/Hypromellose/PEG400 15 ml Bottle 1 DRP EACH EYE (22:55)
[2022-04-25] MEDS: Flecainide 150 MG Tablet PO (22:56)
[2022-04-25] MEDS: APIXABAN 2.5 MG TABLET PO (22:56)
[2022-04-25] MEDS: Atorvastatin Calcium 40 MG Tablet PO (22:57)
[2022-04-25] MEDS: RisperiDONE 0.5 MG Tablet PO (22:57)
[2022-04-25] MEDS: Latanoprost 0.005% 1 Bottle 1 DRP EACH EYE (23:03)
[2022-04-26] VITALS (9 sets, daily range): BP systolic 100–136; BP diastolic 65–91; PULSE 65–105; RESP 16–20; TEMP 36.3–36.9; O2SAT 94–98
[2022-04-26 06:09] LABS: Absolute Lymphocyte Count 2.21 X10^3/uL (0.83-4.51); Absolute Neutrophil Count 4.2 X10^3/uL (2.0-7.7); Basophil# 0.02 X10^3/uL; Basophil% 0.3 % (0-1); Eosinophil# 0.04 X10^3/uL; Eosinophils% 0.5 % (0-5); Hematocrit 32.8 % (37-47); Hemoglobin 10.9 g/dL (12.0-15.0); Lymphocyte # 2.21 X10^3/ul (0.83-4.51); Lymphocyte % 30.2 % (19-41); Mean Corp Hgb Conc 33.2 g/dL (32-36); Mean Corpuscular Hgb 30.9 pg (27.0-32.0); Mean Corpuscular Volume 92.9 fL (81-99); Mean Platelet Vol. 10.1 fl (6.2-12.0); Monocyte# 0.79 X10^3/uL; Monocyte% 10.8 % (0-10); NRBC Flagged by Analyzer 0 % (0-5); Neutrophil # 4.24 X10^3/uL (2.7-7.7); Neutrophil % 57.9 % (47-70); Platelet Count 262 K/mm3 (150-450); RBC Distribution Width CV 13.6 % (11.6-14.6); RBC Distribution Width SD 46.3 fl (35.1-43.9); Red Blood Count 3.53 M/mm3 (4.2-5.4); White Blood Count 7.3 K/mm3 (4.4-11.0)
[2022-04-26 06:40] LABS: Anion Gap 6 (5-15); BUN 25 mg/dL (7-18); BUN/Creat Ratio 15.4 RATIO (10-20); Calcium,Total 8.6 mg/dL (8.5-10.1); Chloride 107 mmol/L (98-107); Creatinine, Serum 1.62 mg/dL (0.55-1.02); EST Glomerular Filtration Rate 32 mL/min (>60); Est Glom Filt Rate - Afr Amer 39 mL/min (>60); Estimated Creatinine Clearance 21.54 ml/min; Glucose 114 mg/dL (74-106); Sodium Level 139 mmol/L (136-145)
[2022-04-26] MEDS: 0.9% Normal Saline 1,000 ML 75 ML IV (07:56)
[2022-04-26] MEDS: Pantoprazole Sodium 40 MG Tablet PO (08:00)
[2022-04-26] MEDS: APIXABAN 2.5 MG TABLET PO ×2 (08:00→20:49)
[2022-04-26] MEDS: Flecainide 150 MG Tablet PO ×2 (08:00→20:49)
[2022-04-26] MEDS: Losartan Potassium 100 MG Tablet PO (08:00)
[2022-04-26] MEDS: DULoxetine Hcl 60 MG Capsule PO (08:00)
[2022-04-26] MEDS: Carvedilol 12.5 MG Tablet PO ×2 (08:00→20:48)
[2022-04-26] MEDS: Ferrous Sulfate 325 MG Tablet PO ×2 (08:00→16:31)
--- NOTE | 2022-04-26 09:29 | PCM.PN.INT ---
Assessment & Plan Assessment/Plan (1) GUSTAVO (acute kidney injury): PLAN: Plan RECOMMENDATIONS: 1. Continue gentle IV fluid resuscitation. 2. Continue empiric antimicrobials. 3. Avoid sedating medications. 4. Continue appropriate DVT prophylaxis. 5. Encourage incentive spirometer use and mobilize patient as tolerated. IMPRESSIONS: 1. Sepsis The patient presented to the hospital as a direct transfer with encephalopathy in the setting of a recently diagnosed urinary tract source of infection. The patient did have evidence of end organ dysfunction as manifested by altered mentation, lactic acidemia and acute kidney injury. Although she was initially hypotensive at presentation, the patient responded to fluid resuscitation. The patient remains hemodynamically stable. She will be maintained on empiric broad-spectrum antimicrobials for now. Blood and urine cultures are pending. 2. Encephalopathy Improved. Most likely metabolic in etiology in the setting of #1. Continue supportive measures as noted above. Avoid sedating medications. 3. Acute kidney injury/hyperkalemia Improving. Most likely prerenal in etiology in the setting of #1. Anticipate stabilization/improvement with volume expansion. Continue to monitor urine output. No current indication for renal replacement therapy. 4. History of paroxysmal atrial fibrillation/sick sinus syndrome status post pacemaker placement/right MCA stroke Complicates care, management, recovery and prognosis. The patient will require PT evaluation once medically stabilized. This note was generated with [employer] dictation software. It may contain incorrect words, spelling, and punctuation that were not noted in checking the note before signing. Subjective Subjective The patient was seen and examined at the bedside this morning. Events from the last 24 hours have been reviewed. The patient is currently afebrile, hemodynamically stable and maintaining appropriate oxygen saturations on room air. The patient is documented to be overall net +500 mL for the hospitalization. Leukocytosis has resolved. Creatinine has improved to 1.6. The patient's daughter is present at the bedside. Objective Data Objective Data The patient's most recent lab work, culture data and imaging studies have all been personally reviewed. Blood and urine cultures are pending. Vital Signs: Vital Signs Temp Pulse Resp BP Pulse Ox O2 Del Method O2 Flow Rate 97.6 F L 103 H 16 100/79 95 Room Air 2 04/26/22 02:02 04/26/22 07:00 04/26/22 02:02 04/26/22 02:02 04/26/22 02:02 04/26/22 02:02 04/25/22 08:00 Oxygen Flow Rate (L/min) 2 Oxygen Delivery Method Room Air Weight: 147 lb 14.883 oz Body Mass Index (BMI) 27.7 Intake & Output: Intake and Output for Last 24 Hours 04/24/22 04/25/22 04/26/22 23:59 23:59 23:59 Intake Total 60 / 60 2246.25 / 2246.25 1050 / 1050 Output Total 2850 / 2850 Balance 60 / -140 -603.75 / -603.75 1050 / 1050 Lab / Micro Data Attestation: I reviewed the patient's lab results. Result Diagrams: 04/26/22 06:00 04/26/22 06:00 Labs: Laboratory Results - last 24 hr 04/25/22 13:30: MRSA (PCR) Negative 04/26/22 06:00: WBC 7.3, RBC 3.53 L, Hgb 10.9 L, Hct 32.8 L, MCV 92.9, MCH 30.9, MCHC 33.2, RDW Std Deviation 46.3 H, RDW Coeff of Keyur 13.6, Plt Count 262, MPV 10.1, Immature Gran % (Auto) 0.300, Neut % (Auto) 57.9, Lymph % (Auto) 30.2, [place] % (Auto) 10.8 H, Eos % (Auto) 0.5, Baso % (Auto) 0.3, Absolute Neuts (auto) 4.2, Absolute Lymphs (auto) 2.21, Nucleated RBC % 0 04/26/22 06:00: Sodium 139, Potassium 4.0, Chloride 107, Carbon Dioxide 26.0, Anion Gap 6, BUN 25 H, Creatinine 1.62 H, Estim Creat Clear Calc 21.54, Est GFR (MDRD) Af Amer 39 L, Est GFR (MDRD) Non-Af 32 L, BUN/Creatinine Ratio 15.4, Glucose 114 H, Calcium 8.6 Physical Exam Const no apparent distress Constitutional Narrative: Sleeping soundly. HEENT normocephalic and head/scalp atraumatic Eyes PERRL and EOMs intact bilaterally Neck supple General: trachea midline Chest inspection of chest normal Resp normal respiratory effort Auscultation: Negative for rales, rhonchi or wheezes Cardio S1 normal heart sound and S2 normal heart sound Rhythm: abnormal rhythm GI normal to inspection, nondistended, normoactive bowel sounds Extremity no clubbing, cyanosis or edema Skin no rashes or lesions noted Neuro no focal motor deficits Psych Mood & Affect: flat affect Charges/Coding Visit Charges Inpatient E&M: 96502 Subs Hosp L2
--- NOTE | 2022-04-26 10:20 | CASEMGMT ---
BIA called patient's daughter and Healthcare Jaylyn CAZARES. Jaylyn confirmed the plan is for patient to return to [facility] at discharge. Plan: d/c to [facility] Yue BALDERAS
--- NOTE | 2022-04-26 11:02 | PCM.PN.HOSP ---
Subjective Subjective Indicates she is feeling much better today. We did obtain the culture from the nursing facility which was obtained on the and antibiotics were started on the with Bactrim. Cultures grew out Klebsiella at that time that resistant only to ampicillin. No significant issues overnight. Objective Data Objective Data Vital Signs: Vital Signs Temp Pulse Resp BP Pulse Ox O2 Del Method O2 Flow Rate 97.7 F L 94 20 H 107/91 H 95 Room Air 2 04/26/22 09:30 04/26/22 09:30 04/26/22 09:30 04/26/22 09:30 04/26/22 09:30 04/26/22 09:38 04/25/22 08:00 Oxygen Flow Rate (L/min) 2 Oxygen Delivery Method Room Air Weight: 67.1 kg Body Mass Index (BMI) 27.7 Intake & Output: Intake and Output for Last 24 Hours 04/24/22 04/25/22 04/26/22 23:59 23:59 23:59 Intake Total 60 / 60 2246.25 / 2246.25 1167.5 / 1167.5 Output Total 2850 / 2850 Balance 60 / -140 -603.75 / -603.75 1167.5 / 1167.5 Lab / Micro Data Result Diagrams: 04/26/22 06:00 04/26/22 06:00 Labs: Laboratory Results - last 24 hr 04/25/22 13:30: MRSA (PCR) Negative 04/26/22 06:00: WBC 7.3, RBC 3.53 L, Hgb 10.9 L, Hct 32.8 L, MCV 92.9, MCH 30.9, MCHC 33.2, RDW Std Deviation 46.3 H, RDW Coeff of Keyur 13.6, Plt Count 262, MPV 10.1, Immature Gran % (Auto) 0.300, Neut % (Auto) 57.9, Lymph % (Auto) 30.2, [place] % (Auto) 10.8 H, Eos % (Auto) 0.5, Baso % (Auto) 0.3, Absolute Neuts (auto) 4.2, Absolute Lymphs (auto) 2.21, Nucleated RBC % 0 04/26/22 06:00: Sodium 139, Potassium 4.0, Chloride 107, Carbon Dioxide 26.0, Anion Gap 6, BUN 25 H, Creatinine 1.62 H, Estim Creat Clear Calc 21.54, Est GFR (MDRD) Af Amer 39 L, Est GFR (MDRD) Non-Af 32 L, BUN/Creatinine Ratio 15.4, Glucose 114 H, Calcium 8.6 Micro: Microbiology 04/25/22 13:30 Urine, Catheterized Urine Culture - Preliminary Culture exhibits no growth. Physical Exam Const alert, no apparent distress and well nourished Constitutional Narrative: Elderly, white female sitting up in bed watching television, appears much improved in the last 24 hours mental status is back to baseline per discussion with daughters yesterday afternoon. HEENT head/scalp atraumatic, moist oral mucous membranes and oropharynx normal Resp normal respiratory effort, no retractions, no use of accessory muscles and clear to auscultation bilaterally Auscultation: Negative for crackles, rales, rhonchi or wheezes Cardio regular rate, S1 normal heart sound, S2 normal heart sound, no murmurs, no rub, no gallops, no clicks and no JVD Cardio Narrative: Irregularly irregular rhythm GI normal to inspection, nondistended, normoactive bowel sounds, soft to palpation, non-tender and non-distended Extremity no clubbing, cyanosis or edema Extremity Narrative: 2+ pedal pulses Skin Skin Narrative: Pal Neuro CN's II-XII intact bilaterally, moves all extremities, no focal motor deficits and no sensory deficits noted Neuro Narrative: Significant generalized weakness Speech: speech normal Psych affect normal Psych Narrative: Very pleasant and appropriately interactive Assessment & Plan Assessment/Plan (1) GUSTAVO (acute kidney injury): (2) Hyperkalemia: (3) Sepsis: (4) Toxic metabolic encephalopathy: PLAN: Plan Sepsis secondary to Klebsiella pneumonia UTI -Had been diagnosed with a UTI 3 days prior and was on Bactrim -Blood cultures are pending at this time -Urine culture here shows no growth however that is not unanticipated as she was on appropriate antibiotics prior to presentation -Patient presented with encephalopathy/GUSTAVO/lactic acidosis/leukocytosis/hypotension -Blood pressures were initially low but have improved with IV fluids only and pressors were not required -We will continue Zosyn at this time -Critical care medicine is following -Will probably be ready for discharge back to nursing home facility tomorrow to [facility] GUSTAVO -Baseline serum creatinine 0.8-1 -Suspect elevation is related to sepsis with UTI and use of Bactrim -Serum creatinine is improving and is down to 1.6 from 2 on admission -Continue IV fluids -Repeat BMP in a.m. -Continue to hold losartan Hyperkalemia -Likely related to Bactrim use -Resolved -Likely caused heart arrhythmia Lactic acidosis -Resolved Third-degree heart block -Resolved -Secondary to hyperkalemia -Currently back in paced rhythm Toxic/metabolic encephalopathy -Resolved -Per patient's family she is back to baseline with regards to mental status -Continue to monitor clinically Chronic anemia -Hemoglobin is at baseline and appears to be stable -Continue to monitor -Continue home iron supplementation SSS/PAF -Continue apixaban 2.5 mg p.o. twice daily -Continue flecainide -Patient is paced at baseline -Restart Coreg Hypertension -Restart Coreg -Continue to hold amlodipine and losartan Hyperlipidemia -Continue statin DM-2 -Hold home metformin -Sliding scale insulin Depression -Continue duloxetine Intermittent constipation -Bowel regimen as ordered History of stroke -Patient does not appear to have any significant residual deficits -We will have PT/OT consultation -Patient is not on any and platelet medication Dementia -Patient with some behavioral issues related to her dementia will continue home Risperdal at at bedtime -Dementia type is unclear at this time however suspect Alzheimer's type versus vascular -We will further obtain baseline upon conversation with family tomorrow DVT prophylaxis -Continue home apixaban CODE STATUS -DNR CCA no intubation Charges/Coding Visit Charges Inpatient E&M: 44082 Subs Hosp L2
[2022-04-26] MEDS: RisperiDONE 0.5 MG Tablet PO (20:48)
[2022-04-26] MEDS: Latanoprost 0.005% 1 Bottle 1 DRP EACH EYE (20:49)
[2022-04-26] MEDS: Atorvastatin Calcium 40 MG Tablet PO (20:49)
[2022-04-26 23:15] LABS: Bedside Glucose 119 mg/dL (74-106)
[2022-04-27 03:00] VITALS: PULSE 69
[2022-04-27 03:15] VITALS: BP 116/72; PULSE 71; RESP 16; TEMP 36.2; O2SAT 95
[2022-04-27] MEDS: 0.9% Normal Saline 1,000 ML 75 ML IV (03:38)
[2022-04-27 07:17] VITALS: PULSE 63
[2022-04-27 07:48] LABS: ALB/GLOB Ratio 0.8 RATIO (0.9-2.4); AST(SGOT) 13 U/L (15-37); Alanine Aminotransfer ALT/SGPT 17 U/L (13-56); Albumin, Serum 2.4 g/dL (3.2-5.0); Alkaline Phosphatase 74 U/L (45-117); Anion Gap 4 (5-15); BUN 26 mg/dL (7-18); BUN/Creat Ratio 15.9 RATIO (10-20); Calcium,Total 8.4 mg/dL (8.5-10.1); Chloride 108 mmol/L (98-107); Creatinine, Serum 1.64 mg/dL (0.55-1.02); EST Glomerular Filtration Rate 32 mL/min (>60); Est Glom Filt Rate - Afr Amer 39 mL/min (>60); Estimated Creatinine Clearance 21.28 ml/min; Glucose 129 mg/dL (74-106); Magnesium 1.7 mg/dL (1.6-2.6); Potassium 3.6 mmol/L (3.5-5.1); Protein, Total 5.4 g/dL (6.4-8.2); Sodium Level 139 mmol/L (136-145)
[2022-04-27] MEDS: Pantoprazole Sodium 40 MG Tablet PO (08:04)
[2022-04-27] MEDS: Ferrous Sulfate 325 MG Tablet PO (08:04)
[2022-04-27] MEDS: Carvedilol 12.5 MG Tablet PO (08:05)
[2022-04-27] MEDS: DULoxetine Hcl 60 MG Capsule PO (08:05)
[2022-04-27] MEDS: Losartan Potassium 100 MG Tablet PO (08:05)
[2022-04-27] MEDS: Flecainide 150 MG Tablet PO (08:05)
[2022-04-27] MEDS: APIXABAN 2.5 MG TABLET PO (08:05)
--- NOTE | 2022-04-27 09:07 | CASEMGMT ---
BIA faxed PT/OT evals and updated progress notes to [facility]. BIA also inquired if patient can return prior to pre-cert since she resides at [facility]. Yue BALDERAS
[2022-04-27 09:15] VITALS: BP 137/86; PULSE 70; RESP 16; TEMP 36.7; O2SAT 95
--- NOTE | 2022-04-27 09:47 | PCM.PN.INT ---
Assessment & Plan Assessment/Plan (1) GUSTAVO (acute kidney injury): PLAN: Plan RECOMMENDATIONS: 1. Continue empiric antimicrobials. 2. Avoid sedating medications. 3. Continue appropriate DVT prophylaxis. 4. Encourage incentive spirometer use and mobilize patient as tolerated. IMPRESSIONS: 1. Sepsis The patient presented to the hospital as a direct transfer with encephalopathy in the setting of a recently diagnosed urinary tract source of infection. The patient did have evidence of end organ dysfunction as manifested by altered mentation, lactic acidemia and acute kidney injury. Although she was initially hypotensive at presentation, the patient responded to fluid resuscitation. The patient remains hemodynamically stable. She will be maintained on empiric broad-spectrum antimicrobials for now. Blood and urine cultures are pending. 2. Encephalopathy Improved. Most likely metabolic in etiology in the setting of #1. Continue supportive measures as noted above. Avoid sedating medications. 3. Acute kidney injury/hyperkalemia Improving. Most likely prerenal in etiology in the setting of #1. Anticipate stabilization/improvement with volume expansion. Continue to monitor urine output. No current indication for renal replacement therapy. 4. History of paroxysmal atrial fibrillation/sick sinus syndrome status post pacemaker placement/right MCA stroke Complicates care, management, recovery and prognosis. The patient will require PT evaluation. This note was generated with [employer] dictation software. It may contain incorrect words, spelling, and punctuation that were not noted in checking the note before signing. Subjective Subjective The patient was seen and examined at the bedside this morning. Events from the last 24 hours have been reviewed. The patient is currently afebrile, hemodynamically stable and maintaining appropriate oxygen saturations on room air. The patient is currently documented to be overall net +1.6 L for the hospitalization. Creatinine is stable at 1.64. Objective Data Objective Data The patient's most recent lab work, culture data and imaging studies have all been personally reviewed. Blood and urine cultures are pending. Vital Signs: Vital Signs Temp Pulse Resp BP Pulse Ox O2 Del Method O2 Flow Rate 97.1 F L 63 16 116/72 95 Room Air 2 04/27/22 03:15 04/27/22 07:17 04/27/22 03:15 04/27/22 03:15 04/27/22 03:15 04/27/22 03:15 04/25/22 08:00 Oxygen Flow Rate (L/min) 2 Oxygen Delivery Method Room Air Weight: 147 lb 4.301 oz Body Mass Index (BMI) 27.7 Intake & Output: Intake and Output for Last 24 Hours 04/25/22 04/26/22 04/27/22 23:59 23:59 23:59 Intake Total 2246.25 / 2246.25 1817.5 / 2017.5 1252.5 / 1252.5 Output Total 2850 / 2850 650 / 650 240 / 240 Balance -603.75 / -603.75 1167.5 / 1367.5 1012.5 / 1012.5 Lab / Micro Data Attestation: I reviewed the patient's lab results. Result Diagrams: 04/26/22 06:00 04/27/22 06:00 Labs: Laboratory Results - last 24 hr 04/26/22 20:43: POC Glucose 119 H 04/27/22 06:00: Sodium 139, Potassium 3.6, Chloride 108 H, Carbon Dioxide 27.0, Anion Gap 4 L, BUN 26 H, Creatinine 1.64 H, Estim Creat Clear Calc 21.28, Est GFR (MDRD) Af Amer 39 L, Est GFR (MDRD) Non-Af 32 L, BUN/Creatinine Ratio 15.9, Glucose 129 H, Calcium 8.4 L, Phosphorus 3.0, Magnesium 1.7, Total Bilirubin 0.40, AST 13 L, ALT 17, Alkaline Phosphatase 74, Total Protein 5.4 L, Albumin 2.4 L, Globulin 3.0, Albumin/Globulin Ratio 0.8 L Micro: Microbiology 04/25/22 13:30 Urine, Catheterized Urine Culture - Preliminary Culture exhibits no growth. Physical Exam Const alert and no apparent distress HEENT normocephalic and head/scalp atraumatic Eyes PERRL and EOMs intact bilaterally Neck supple General: trachea midline Chest inspection of chest normal Resp normal respiratory effort Auscultation: Negative for rales, rhonchi or wheezes Cardio S1 normal heart sound and S2 normal heart sound Rhythm: abnormal rhythm GI normal to inspection, nondistended, normoactive bowel sounds Extremity no clubbing, cyanosis or edema Skin no rashes or lesions noted Neuro no focal motor deficits Psych Mood & Affect: flat affect Charges/Coding Visit Charges Inpatient E&M: 98666 Subs Hosp L2
[2022-04-27 10:40] VITALS: O2SAT 90
--- NOTE | 2022-04-27 10:43 | DS.PCM_ITS ---
Providers Date of Admission: 04/25/22 Date of Discharge: 04/27/22 Primary Care Physician: Dr. Nafisa Chawla, DO Consultations 04/25/22 01:29 Consult: [employer] / Pulmonary Medicine Routine Consulting Provider: Wicho Valero Reason for Consult: UTI, Lactic acidosis EMERGENT Consult: No MD Notified: Yes Date Notified: 04/25/22 Time Notified: 06:16 Method of Notification: Verbal Reason For Visit: HYPERKALEMIA, BRADYCARDIA Diagnosis Discharge Diagnosis (1) GUSTAVO (acute kidney injury): Status: Acute Code(s): N17.9 - Acute kidney failure, unspecified Plan Sepsis secondary to Klebsiella pneumonia UTI -Had been diagnosed with a UTI 3 days prior and was on Bactrim -Blood cultures are pending at this time -Urine culture here shows no growth however that is not unanticipated as she was on appropriate antibiotics prior to presentation -Patient presented with encephalopathy/GUSTAVO/lactic acidosis/leukocytosis/hypotension -Blood pressures were initially low but have improved with IV fluids only and pressors were not required -We will continue Zosyn at this time -Critical care medicine is following -Will probably be ready for discharge back to half-way facility tomorrow to [facility] GUSTAVO -Baseline serum creatinine 0.8-1 -Suspect elevation is related to sepsis with UTI and use of Bactrim -Serum creatinine is improving and is down to 1.6 from 2 on admission -Continue IV fluids -Repeat BMP in a.m. -Continue to hold losartan Hyperkalemia -Likely related to Bactrim use -Resolved -Likely caused heart arrhythmia Lactic acidosis -Resolved Third-degree heart block -Resolved -Secondary to hyperkalemia -Currently back in paced rhythm Toxic/metabolic encephalopathy -Resolved -Per patient's family she is back to baseline with regards to mental status -Continue to monitor clinically Chronic anemia -Hemoglobin is at baseline and appears to be stable -Continue to monitor -Continue home iron supplementation SSS/PAF -Continue apixaban 2.5 mg p.o. twice daily -Continue flecainide -Patient is paced at baseline -Restart Coreg Hypertension -Restart Coreg -Continue to hold amlodipine and losartan Hyperlipidemia -Continue statin DM-2 -Hold home metformin -Sliding scale insulin Depression -Continue duloxetine Intermittent constipation -Bowel regimen as ordered History of stroke -Patient does not appear to have any significant residual deficits -We will have PT/OT consultation -Patient is not on any and platelet medication Dementia -Patient with some behavioral issues related to her dementia will continue home Risperdal at at bedtime -Dementia type is unclear at this time however suspect Alzheimer's type versus vascular -We will further obtain baseline upon conversation with family tomorrow DVT prophylaxis -Continue home apixaban CODE STATUS -DNR CCA no intubation Medications at Discharge Home Medications atorvastatin 40 mg tablet 40 mg PO QHS cholesterol 06/06/19 duloxetine 60 mg capsule,delayed release 60 mg PO DAILY depression 06/06/19 bisacodyl 10 mg rectal suppository 10 mg RECTAL .PRN X 1 PRN Constipation 09/06/19 magnesium hydroxide 400 mg/5 mL oral suspension 30 ml PO .PRN X 1 PRN Constipation 09/06/19 losartan 100 mg tablet 100 mg PO DAILY bp 10/28/19 carvedilol 12.5 mg tablet 12.5 mg PO BID htn 04/21/20 pantoprazole 40 mg tablet,delayed release 40 mg PO DAILY gerd 04/21/20 cyanocobalamin (vitamin B-12) 500 mcg tablet (Vitamin B-12) 1,000 mcg PO DAILY supplement 04/26/21 acetaminophen 500 mg tablet (Acetaminophen Extra Strength) 500 mg PO Q6H PRN Fever Or Pain 05/18/21 amlodipine 10 mg tablet 10 mg PO DAILY bp 05/18/21 ferrous sulfate 325 mg (65 mg iron) tablet 325 mg PO BIDCM anemia 05/18/21 latanoprost 0.005 % eye drops 2 drp EACH EYE DAILY@2200 glaucoma 05/18/21 sodium phosphates 19 gram-7 gram/118 mL enema (Fleet Enema) 118 ml MA DAILY PRN Constipation 05/18/21 albuterol sulfate 2.5 mg/3 mL (0.083 %) solution for nebulization 2.5 mg inhalation Q4H PRN Shortness Of Breath Or Wheezing 10/25/21 aluminum-mag hydroxide-simethicone 200 mg-200 mg-20 mg/5 mL oral susp 30 ml PO Q4H PRN Stomach Upset 10/25/21 apixaban 2.5 mg tablet 2.5 mg PO BID 10/25/21 artifi.tears(hypromellose)(PF) 0.3 % eye drops 1 drp ophthalmic (eye) Q8H PRN Dry Eye(S) 10/25/21 ascorbic acid (vitamin C) 500 mg tablet 500 mg PO BIDCM 10/25/21 guaifenesin 100 mg/5 mL oral liquid 100 mg PO Q4H PRN Cough 10/25/21 metformin 1,000 mg tablet 1,000 mg PO BID 10/25/21 potassium chloride 10 mEq capsule,extended release 10 meq PO BID 10/25/21 risperidone 0.5 mg tablet (Risperdal) 0.5 mg PO QHS behavior 10/25/21 sodium chloride 0.65 % nasal spray aerosol (Saline Nasal) 2 spray intranasal BID PRN nasal spray 10/25/21 flecainide 150 mg tablet 150 mg PO Q12H 02/17/22 ergocalciferol (vitamin D2) 1,250 mcg (50,000 unit) capsule (Vitamin D2) 1,250 mcg PO VILLEGAS 04/25/22 cefdinir 300 mg capsule 300 mg PO BID #4 caps 04/27/22 Hospital Course Operations None Procedures EKG Summary of Care Provided Minutes Spent on Discharge: 37 Hospital Course: Mrs. Franklin is an 82-year-old white female who presented to the emergency department in [place] on 04/24/2022 for acute altered mental status. She had associated nausea. The patient evidently had been diagnosed with a urinary tract infection on 04/21/2022 and was started on Bactrim at that time. She had 3 doses prior to presentation. We did obtain her culture results and it grew out Klebsiella pneumonia that was fairly pansensitive. At the outside hospital ED her blood pressure was as low as 77/52 and she was found to have a potassium of 6.5 and acute kidney injury with a serum creatinine greater than 2. EKG showed third-degree heart block with bradycardia. She was treated with IV fluids, reinier cium, insulin and sodium bicarbonate and she reverted back to her baseline paced rhythm. We suspected that her heart block was related to her marked hyperkalemia. She had initial lactic acid of 6 with a repeat of 5 prior to transfer and was started on empiric antibiotics for suspected ongoing UTI. Upon arrival here her temperature was 96, blood pressure 113/76, heart rate 78, respirate of 17 and oxygen saturation was 95% on 2 L. She was initially admitted to the intensive care unit where she remained stable and we were able to transfer to the progressive care unit the following day. She was maintained on broad-spectrum antibiotics and blood and urine cultures were obtained. Both had no growth during her hospital course. Her serum creatinine improved from 2.1 at outside facility to 1.64 on the day of discharge. I do recommend a follow-up basic metabolic profile be obtained on Monday of this week to continue to follow her serum creatinine she is not quite at her baseline. Her mental status has returned to baseline per discussion with family and her electrolytes had normalized. I suspect her heart block was related to her marked hyperkalemia and once this was corrected her symptoms resolved. I would not recommend any further Bactrim use in this patient as she appears to have suffered from worsening renal function and hyperkalemia with Bactrim use. I have placed this as an allergy for her in the future. The Klebsiella was sensitive to Bactrim however so she did complete 3 days of treatment prior to admission. I suspect this is why her urine cultures were negative. I will go ahead and continue antibiotics for 2 more days at discharge to complete a course for complicated urinary tract infection. She will complete her antibiotic course with Omnicef 300 mg p.o. twice daily for 2 more days after discharge. Were able to discharge her back to [facility] in stable condition on 04/27/2022. Discharge diagnoses: Sepsis secondary to Klebsiella pneumonia UTI Klebsiella pneumonia UTI GUSTAVO-resolving Hyperkalemia-resolved Lactic acidosis-resolved Third-degree heart block-resolved Toxic/metabolic encephalopathy-resolved Chronic anemia Sick sinus syndrome Paroxysmal atrial fibrillation Hypertension Hyperlipidemia DM-2 Depression Intermittent constipation History of stroke with left-sided weakness Dementia-suspect vascular versus Alzheimer's type Physical Exam Narrative No events overnight. Patient has no complaints. Const alert, no apparent distress and well nourished Constitutional Narrative: Elderly, white female sitting up in bed watching television, appears comfortable and nontoxic General Appearance: cooperative, comfortable, well kempt and well developed Orientation / Consciousness: awake Exam Limitations: other limitations HEENT normocephalic, head/scalp atraumatic, moist oral mucous membranes and oropharynx normal HEENT Narrative: Dentition is fair for age, Mallampati 2, no thrush Eyes PERRL, EOMs intact bilaterally and conjunctivae normal Eyes Narrative: No scleral icterus Neck no lymphadenopathy, supple and no JVD Neck Narrative: Trachea midline, no thyroid enlargement Resp normal respiratory effort, no retractions, no use of accessory muscles and clear to auscultation bilaterally Auscultation: Negative for crackles, rales, rhonchi or wheezes Cardio regular rate, regular rhythm, S1 normal heart sound, S2 normal heart sound, no murmurs, no rub, no gallops, no clicks and no JVD Cardio Narrative: Irregularly irregular rhythm GI normal to inspection, nondistended, normoactive bowel sounds, soft to palpation, non-tender and non-distended Extremity Extremity Narrative: 2+ pedal pulses, left upper and lower extremity edema trace to 1+ Skin no rashes or lesions noted, no wounds, skin turgor normal, no jaundice, no petechiae and no mottling Skin Narrative: Pal Neuro Neuro Narrative: Significant generalized weakness, left-sided weakness Speech: speech normal Psych affect normal Psych Narrative: Very pleasant and appropriately interactive Weight / BMI Weight Weight: 66.8 kg Body Mass Index (BMI) 27.7 ABG / Lab / Microbiology Data Result Diagrams: 04/26/22 06:00 04/27/22 06:00 Laboratory: Laboratory Results - last 24 hr 04/26/22 20:43: POC Glucose 119 H 04/27/22 06:00: Sodium 139, Potassium 3.6, Chloride 108 H, Carbon Dioxide 27.0, Anion Gap 4 L, BUN 26 H, Creatinine 1.64 H, Estim Creat Clear Calc 21.28, Est GFR (MDRD) Af Amer 39 L, Est GFR (MDRD) Non-Af 32 L, BUN/Creatinine Ratio 15.9, Glucose 129 H, Calcium 8.4 L, Phosphorus 3.0, Magnesium 1.7, Total Bilirubin 0.40, AST 13 L, ALT 17, Alkaline Phosphatase 74, Total Protein 5.4 L, Albumin 2.4 L, Globulin 3.0, Albumin/Globulin Ratio 0.8 L Microbiology: Microbiology 04/25/22 13:50 Blood Culture (Wb) - Left Forearm Blood Culture - Preliminary No growth in 48 hours. 04/25/22 13:45 Blood Culture (Wb) - Anticubital Right Blood Culture - Preliminary No growth in 48 hours. 04/25/22 13:30 Urine, Catheterized Urine Culture - Preliminary Culture exhibits no growth. Meaningful Use Info Meaningful Use Diagnoses (Choose all that apply): None applicable Discharge Plan Admission Admit Date/Time: 04/25/22 16:38 Primary Reason for Your Visit: Acute altered mental status Attending Provider: Dana Dee Primary Care Provider: Nafisa Chawla Consulting Providers: Wicho Valero ; Kvng Shah Discharge Orders/Prescriptions Prescriptions: New cefdinir 300 mg capsule 300 mg PO BID Qty: 4 0RF Continued carvedilol 12.5 mg tablet 12.5 mg PO BID Rx Instructions: must administer with a meal/food pantoprazole 40 mg tablet,delayed release (DR/EC) 40 mg PO DAILY cyanocobalamin (vitamin B-12) [Vitamin B-12] 500 mcg tablet 1,000 mcg PO DAILY risperidone [Risperdal] 0.5 mg tablet 0.5 mg PO QHS sodium chloride [Saline Nasal] 0.65 % aerosol,spray 2 spray intranasal BID PRN (Reason: nasal spray) albuterol sulfate 2.5 mg /3 mL (0.083 %) solution for nebulization 2.5 mg inhalation Q4H PRN (Reason: Shortness Of Breath Or Wheezing) potassium chloride 10 mEq capsule, extended release 10 meq PO BID guaifenesin 100 mg/5 mL liquid 100 mg PO Q4H PRN (Reason: Cough) metformin 1,000 mg tablet 1,000 mg PO BID alum-mag hydroxide-simeth 200-200-20 mg/5 mL suspension 30 ml PO Q4H PRN (Reason: Stomach Upset) artifi.tears(hypromellose)(PF) 0.3 % drops 1 drp ophthalmic (eye) Q8H PRN (Reason: Dry Eye(S)) apixaban 2.5 mg tablet 2.5 mg PO BID ascorbic acid (vitamin C) 500 mg tablet 500 mg PO BIDCM atorvastatin 40 MG tablet 40 mg PO QHS duloxetine 60 MG capsule 60 mg PO DAILY bisacodyl 10 MG suppository 10 mg RECTAL .PRN X 1 PRN (Reason: Constipation) 0RF magnesium hydroxide 30 ML suspension 30 ml PO .PRN X 1 PRN (Reason: Constipation) 0RF acetaminophen [Acetaminophen Extra Strength] 500 mg Tablet 500 mg PO Q6H PRN (Reason: Fever Or Pain) ferrous sulfate 325 mg (65 mg iron) Tablet 325 mg PO BIDCM Fleet Enema 19-7 gram/118 mL Enema 118 ml MA DAILY PRN (Reason: Constipation) latanoprost 1 DROP drops 2 drp EACH EYE DAILY@2200 amlodipine 10 MG tablet 10 mg PO DAILY ergocalciferol (vitamin D2) [Vitamin D2] 1,250 mcg (50,000 unit) capsule 1,250 mcg PO VILLEGAS flecainide 150 mg tablet 150 mg PO Q12H Held losartan 100 MG tablet 100 mg PO DAILY Hold Instructions: Resume on 04/29/22. until after repeat BMP in 2 days Discontinued sulfamethoxazole-trimethoprim 800-160 mg tablet 1 tab PO BID Rx Instructions: end 04/29/2022 Referrals / Follow Up: Nafisa Chawla DO [Primary Care Provider] - Disposition Disposition (needs filled in before D/C Order can be placed): [facility] Charges/Coding Visit Charges Inpatient E&M: 86223 SNF Disch >30 Min
--- NOTE | 2022-04-27 11:11 | TREXTCAR_ITS ---
Diet Diet Order/Speech Therapy: 04/25/22 17:15 Diet: Consistent Carb - Calorie Controlled Food consistency:: Regular Liquid Consistency:: Regular/Thin Dietary Modifications:: Cardiac / Heart Healthy Type of Dietary Supplement:: Ensure Pudding Diet Comments: ensure pudding BID w/ lunch and dinner How many daily calories?: 1600 calorie Routine Orders/Code Status O2 Frequency: PRN Keep PO Greater than or Equal to (%): 92 Routine Lab Work: BMP (Please obtain on 04/29/2022 to assess renal function) Code Status: DNRCC-A Therapies Physical Therapy: Eval and Treat Occupational Therapy: Eval and Treat Problem/Diagnosis (1) GUSTAVO (acute kidney injury): Status: Acute Code(s): N17.9 - Acute kidney failure, unspecified Plan Sepsis secondary to Klebsiella pneumonia UTI -Had been diagnosed with a UTI 3 days prior and was on Bactrim -Blood cultures are pending at this time -Urine culture here shows no growth however that is not unanticipated as she was on appropriate antibiotics prior to presentation -Patient presented with encephalopathy/GUSTAVO/lactic acidosis/leukocytosis/hypotension -Blood pressures were initially low but have improved with IV fluids only and pressors were not required -We will continue Zosyn at this time -Critical care medicine is following -Will probably be ready for discharge back to assisted facility tomorrow to [facility] GUSTAVO -Baseline serum creatinine 0.8-1 -Suspect elevation is related to sepsis with UTI and use of Bactrim -Serum creatinine is improving and is down to 1.6 from 2 on admission -Continue IV fluids -Repeat BMP in a.m. -Continue to hold losartan Hyperkalemia -Likely related to Bactrim use -Resolved -Likely caused heart arrhythmia Lactic acidosis -Resolved Third-degree heart block -Resolved -Secondary to hyperkalemia -Currently back in paced rhythm Toxic/metabolic encephalopathy -Resolved -Per patient's family she is back to baseline with regards to mental status -Continue to monitor clinically Chronic anemia -Hemoglobin is at baseline and appears to be stable -Continue to monitor -Continue home iron supplementation SSS/PAF -Continue apixaban 2.5 mg p.o. twice daily -Continue flecainide -Patient is paced at baseline -Restart Coreg Hypertension -Restart Coreg -Continue to hold amlodipine and losartan Hyperlipidemia -Continue statin DM-2 -Hold home metformin -Sliding scale insulin Depression -Continue duloxetine Intermittent constipation -Bowel regimen as ordered History of stroke -Left-sided weakness -We will have PT/OT consultation -Patient is not on any and platelet medication Dementia -Patient with some behavioral issues related to her dementia will continue home Risperdal at at bedtime -Dementia type is unclear at this time however suspect Alzheimer's type versus vascular -We will further obtain baseline upon conversation with family tomorrow DVT prophylaxis -Continue home apixaban CODE STATUS -DNR CCA no intubation Allergies/Procedures Done in Hospital Allergies hydralazine Allergy (Unknown, Verified 10/25/21 09:13) unknown sulfamethoxazole [From Bactrim] Adverse Reaction (Severe, Verified 04/27/22 10:42) gustavo hyperkalemia trimethoprim [From Bactrim] Adverse Reaction (Severe, Verified 04/27/22 10:42) gustavo hyperkalemia amlodipine Adverse Reaction (Mild, Verified 05/20/21 14:32) Itching mild itching (Dr Josue aware) Procedures: None Type of Care/Length of Stay Estimated LOS: More Than 30 Days Type of Care Needed: Intermediate Rehab Potential: Fair Prognosis: Fair Additional Orders/Day of Discharge Day of Discharge: 04/27/22 Dietary and Speech Recommendations Dietitian Recommendations/Changes: Will adjust diet to 1600 calorie/consistent carbohydrate; cardiac. Consider HEALTH EDUCATION ASSISTANT consult to evaluate swallow ability given hx of dysphagia. Will add ensure pudding BID w/ lunch and dinner for tolerance. Discharge Plan Admission Admit Date/Time: 04/25/22 16:38 Primary Reason for Your Visit: Acute altered mental status Attending Provider: Dana Dee Primary Care Provider: Nafisa Chawla Consulting Providers: Wicho Valero ; Kvng Shah Discharge Orders/Prescriptions Prescriptions: New cefdinir 300 mg capsule 300 mg PO BID Qty: 4 0RF Continued carvedilol 12.5 mg tablet 12.5 mg PO BID Rx Instructions: must administer with a meal/food pantoprazole 40 mg tablet,delayed release (DR/EC) 40 mg PO DAILY cyanocobalamin (vitamin B-12) [Vitamin B-12] 500 mcg tablet 1,000 mcg PO DAILY risperidone [Risperdal] 0.5 mg tablet 0.5 mg PO QHS sodium chloride [Saline Nasal] 0.65 % aerosol,spray 2 spray intranasal BID PRN (Reason: nasal spray) albuterol sulfate 2.5 mg /3 mL (0.083 %) solution for nebulization 2.5 mg inhalation Q4H PRN (Reason: Shortness Of Breath Or Wheezing) potassium chloride 10 mEq capsule, extended release 10 meq PO BID guaifenesin 100 mg/5 mL liquid 100 mg PO Q4H PRN (Reason: Cough) metformin 1,000 mg tablet 1,000 mg PO BID alum-mag hydroxide-simeth 200-200-20 mg/5 mL suspension 30 ml PO Q4H PRN (Reason: Stomach Upset) artifi.tears(hypromellose)(PF) 0.3 % drops 1 drp ophthalmic (eye) Q8H PRN (Reason: Dry Eye(S)) apixaban 2.5 mg tablet 2.5 mg PO BID ascorbic acid (vitamin C) 500 mg tablet 500 mg PO BIDCM atorvastatin 40 MG tablet 40 mg PO QHS duloxetine 60 MG capsule 60 mg PO DAILY bisacodyl 10 MG suppository 10 mg RECTAL .PRN X 1 PRN (Reason: Constipation) 0RF magnesium hydroxide 30 ML suspension 30 ml PO .PRN X 1 PRN (Reason: Constipation) 0RF acetaminophen [Acetaminophen Extra Strength] 500 mg Tablet 500 mg PO Q6H PRN (Reason: Fever Or Pain) ferrous sulfate 325 mg (65 mg iron) Tablet 325 mg PO BIDCM Fleet Enema 19-7 gram/118 mL Enema 118 ml AR DAILY PRN (Reason: Constipation) latanoprost 1 DROP drops 2 drp EACH EYE DAILY@2200 amlodipine 10 MG tablet 10 mg PO DAILY ergocalciferol (vitamin D2) [Vitamin D2] 1,250 mcg (50,000 unit) capsule 1,250 mcg PO VILLEGAS flecainide 150 mg tablet 150 mg PO Q12H Held losartan 100 MG tablet 100 mg PO DAILY Hold Instructions: Resume on 04/29/22. until after repeat BMP in 2 days Discontinued sulfamethoxazole-trimethoprim 800-160 mg tablet 1 tab PO BID Rx Instructions: end 04/29/2022 Referrals / Follow Up: Fast,Nafisa, [Primary Care Provider] - Disposition Disposition (needs filled in before D/C Order can be placed): Custodial Facility
[2022-04-27] MEDS: 0.9% Normal Saline 1,000 ML 500 ML IV (11:26)
[2022-04-27 11:27] VITALS: PULSE 68
--- NOTE | 2022-04-27 11:38 | CASEMGMT ---
Discharge Zoning Technician Radha vasquez/[employer] administrative assistant sent Aleah latham instructions via [facility]. Plan: Aleah Gomez Discharge Zoning Technician
--- NOTE | 2022-04-27 12:16 | CASEMGMT ---
Patient is ready for discharge back to [facility]. Radha d/c chief of planning faxed d/c orders and COVID test to [facility] via [facility]. BIA arranged for patient to get picked up at 14:30 via cot by [facility]. SW called and left a message for patient's daughter. BIA also notified RN, litigation secretary and Charley at [facility]. Plan: d/c back to [facility] under skilled level of care. [facility] transported via cot. Yue BALDERAS
== END 2022-04-27 14:58 | DRG 871 ==
LOC: ICU 04-25 16:59 → PCU 04-25 18:04
PROVIDERS: Hospitalist; Internal Medicine Critical Care Medicine; PCP Internal Medicine; Visit Provider Internal Medicine
DX: A41.59 Other Gram-negative sepsis (principal); G92.8 Other toxic encephalopathy; E87.2 Acidosis; F02.81 Dementia in other diseases classified elsewhere, unspecified severity, with behavioral disturbance; N17.9 Acute kidney failure, unspecified; I50.32 Chronic diastolic (congestive) heart failure; N39.0 Urinary tract infection, site not specified; I49.5 Sick sinus syndrome; E11.9 Type 2 diabetes mellitus without complications; D50.9 Iron deficiency anemia, unspecified; G30.9 Alzheimer's disease, unspecified; I48.0 Paroxysmal atrial fibrillation; F01.50 Vascular dementia, unspecified severity, without behavioral disturbance, psychotic disturbance, mood disturbance, and anxiety; I11.0 Hypertensive heart disease with heart failure; E87.5 Hyperkalemia; I25.10 Atherosclerotic heart disease of native coronary artery without angina pectoris; E78.5 Hyperlipidemia, unspecified; F41.9 Anxiety disorder, unspecified; B96.1 Klebsiella pneumoniae [K. pneumoniae] as the cause of diseases classified elsewhere; F32.A Depression, unspecified; Z20.822 Contact with and (suspected) exposure to COVID-19; Z79.01 Long term (current) use of anticoagulants; Z79.84 Long term (current) use of oral hypoglycemic drugs; Z79.899 Other long term (current) drug therapy; Z66 Do not resuscitate; Z86.73 Personal history of transient ischemic attack (TIA), and cerebral infarction without residual deficits; Z95.0 Presence of cardiac pacemaker
CPT/HCPCS: 36415; 80048; 80053; 82962; 83605; 83735; 84100; 85025; 87040; 87086; 87426; 87641; 97110; 97162; 97166; 97530; 97535; J7030

== ENCOUNTER 2022-06-09 09:09 | Day surgery (SDC) | payer MEDICARE, SELFPAY ==
[2022-06-08 07:43] VITALS: BMI 26.6
[2022-06-09 09:35] LABS: Hematocrit 38.7 % (37-47); Hemoglobin 12.4 g/dL (12.0-15.0); Mean Corpuscular Hgb 31.1 pg (27.0-32.0); Mean Platelet Vol. 10.3 fl (6.2-12.0); Platelet Count 302 K/mm3 (150-450); RBC Distribution Width CV 13.6 % (11.6-14.6); RBC Distribution Width SD 48.6 fl (35.1-43.9); Red Blood Count 3.99 M/mm3 (4.2-5.4); White Blood Count 7.4 K/mm3 (4.4-11.0)
[2022-06-09 09:48] LABS: Anion Gap 5 (5-15); BUN 21 mg/dL (7-18); BUN/Creat Ratio 14.1 RATIO (10-20); Calcium,Total 10.1 mg/dL (8.5-10.1); Chloride 106 mmol/L (98-107); Creatinine, Serum 1.49 mg/dL (0.55-1.02); EST Glomerular Filtration Rate 36 mL/min (>60); Est Glom Filt Rate - Afr Amer 43 mL/min (>60); Estimated Creatinine Clearance 23.42 ml/min; Glucose 142 mg/dL (74-106); Potassium 4.4 mmol/L (3.5-5.1); Sodium Level 141 mmol/L (136-145)
[2022-06-09 10:01] LABS: T4 Free Direct 1.03 ng/dL (0.76-1.46); Thyroid Stim Hormone (TSH) 3.64 uIU/mL (0.358-3.74)
--- NOTE | 2022-06-09 11:32 | EX.PACEMAKER ---
Pacemaker Procedure Note Pacemaker Procedure Note Diagnosis: SSS with AV block; Device generator replacement for normal battery depletion Preoperative diagnosis is device at end of life for normal battery depletion. Postoperative diagnosis same as above. After informed consent and IV antibiotics the patient was brought to the [facility] and the skin over the device was prepped and draped in the usual sterile manner. Intermittent boluses of Versed, and fentanyl were used for sedation and analgesia as well as 1% subcutaneous lidocaine. An incision was made over the pre-existing device. Using blunt and Bovie dissection the pocket was opened and the device was removed. Careful attention was paid not to injure the pre-existing leads. The leads were removed from the device header and they were interrogated. There is normal lead function. Hemostasis was obtained. The pocket was flushed with antibiotic solution. The sponge and needle count were correct. The new device was brought to the field. The leads were placed in the appropriate position in the header and secured by the set screw. The leads and the device were then placed in the pocket. The pocket was closed with a deep layer of running 2-0 Vicryl, a superficial layer of running 4-0 Vicryl, skin with Steri-Strips which were covered with a rolled 4 x 4 and Tegaderm. Patient left the room with the device programmed to proper parameters and there were no complications. The device is a dual chamber Med[employer]onic pacemaker generator. All lead parameters were tested and found to be functionally normal. Lead and device serial and model numbers are available in the chart documents provided by the device company outbound telemarketing representative procedure summary.
== END 2022-06-09 13:15 | disposition home or self-care (01) ==
PROVIDERS: Nurse Practitioner Family; PCP Internal Medicine Geriatric Medicine; Referring Provider Internal Medicine Cardiovascular Disease; Visit Provider Internal Medicine Cardiovascular Disease
DX: T82.111A Breakdown (mechanical) of cardiac pulse generator (battery), initial encounter (principal); I48.0 Paroxysmal atrial fibrillation; E11.9 Type 2 diabetes mellitus without complications; Z95.0 Presence of cardiac pacemaker; Z86.73 Personal history of transient ischemic attack (TIA), and cerebral infarction without residual deficits; Z79.899 Other long term (current) drug therapy; Z79.84 Long term (current) use of oral hypoglycemic drugs; Z79.01 Long term (current) use of anticoagulants; E78.5 Hyperlipidemia, unspecified; X58.XXXA Exposure to other specified factors, initial encounter
CPT/HCPCS: 33228; 36415; 80048; 84439; 84443; 85027; 99152; 99153; J7030; J7050